=== PATIENT | female | born 1935 | race Caucasian/White ===

== ENCOUNTER 2024-11-13 09:41 | Inpatient (IN) | payer MEDICARE, OTHER, SELFPAY ==
--- NOTE | ~2024-11-13 | XR_ITS ---
CLINICAL HISTORY: weakness 1 view chest Comparison: None Findings: Cardiac and mediastinal contours are normal. Mild interstitial prominence with scattered peribronchial thickening. No focal consolidation. No effusion. No pneumothorax. No acute osseous finding. Hiatal hernia suggested. Impression: Mild interstitial prominence with scattered peribronchial thickening. No focal consolidation. This document has been electronically signed by: Jose Rivera MD on 11/13/2024 12:36:19
[2024-11-13 09:47] VITALS: BP 124/78; PULSE 84; O2SAT 95
[2024-11-13 09:51] VITALS: BMI 31.7
[2024-11-13 10:10] VITALS: BP 146/65; PULSE 76; RESP 26; TEMP 36.5; O2SAT 99
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
--- NOTE | 2024-11-13 11:03 | ECG_ITS ---
Test Reason : WEAKNESS Blood Pressure : */* mmHG Vent. Rate : 72 BPM Atrial Rate : 72 BPM P-R Int : 166 ms QRS Dur : 76 ms QT Int : 372 ms P-R-T Axes : 30 3 10 degrees QTcB Int : 407 ms Normal sinus rhythm Normal ECG No previous ECGs available Referred By: Farhan Raza Electronically Signed By: KATI BEDOYA
--- OUTSIDE RECORDS SUMMARY | 2024-11-13 11:19 | XMS_ITS | Data Portability ---
Author Organization [place] - [facility], [facility] Address [address] [place] [address] Assessment Encounter Date Assessment Date Assessment LastModified by Organization Details LastModified Time 04/26/2024 04/26/2024 CC FU R ankle fx ORIF 04/10/[address] Jalloh HPI Accomp by her son, from facility, transported in wheel chair for routine post op follow up No complaints or concerns Confirmed, NWB status, post op splint, minimal pain EXAM R LE medial and lateral incisions well healed, running skin suture in place, soft tissue swelling mild, calf soft/nontender XRAYS ordered obtained reviewed by me R ankle three views show joint space ankle concentric, plate screw fixation intact A/P Right ankle triamaleolar fracture, healing - NWB 3-4 more wk until next visit - suture removla next visit - cast SL NWB - FU 4 wk with xrays right ankle 3 v out of cast [email or web address] Not available 04/26/2024 12:49:17 05/17/2024 05/17/2024 SUBJECTIVE Chief Complaint Follow-up for right ankle fracture, status post-ORIF performed on April 10, 2024. History of Present Illness The patient, YESSENIA, is accompanied by a family member from her rehab facility. She reports minimal pain and is doing well. TM remains agl-pkbfwy-cjyvatu on the affected extremity. OBJECTIVE Examination The patient's right ankle shows foot swelling. The calf is soft and non-tender. Medial and lateral incisions are well-healed with monofilament suture in place. Imaging X-rays ordered, obtained, and reviewed by me today at [facility] of the right ankle, three views, show the following: fracture reduction maintained, early healing observed, implants in position, and joint space maintained. ASSESSMENT Right ankle trimalleolar fracture with routine healing. PLAN - Sutures removed. - Short-leg cast weight-bearing applied. - Prescription for cast shoe given. - Weight-bearing as tolerated is permitted. - Physical therapy and occupational therapy advised to assist with mobilization. - Follow-up in four weeks for cast removal and right ankle X-ray. Date: 05/17/2024 Patient Name: YESSENIA [email or web address] Not available 05/17/2024 11:39:26 06/15/2024 06/15/2024 SUBJECTIVE Chief Complaint Follow-up of right ankle fracture, status post open reduction, internal fixation on April 10, 2024. History of Present Illness Lashaun Turpin, an 88-year-old female, accompanied by her son from her rehab nursing facility and transported by wheelchair. Her cast was removed earlier today. Lashaun reports that she is walking with assistance, while her son notes that she is walking very minimally. She denies any right ankle complaints. OBJECTIVE Examination Right lower extremity: Calf soft, ankle incisions healed, foot plantar grade with limited ankle motion. Imaging X-rays ordered, obtained, and reviewed by me today at [facility]: Right ankle, three views, show malleolar fixation intact, fracture lines through the medial and lateral malleolus resolving, ankle joint spaces maintained. ASSESSMENT Right ankle fracture healing. PLAN Discontinue cast. Allow weight-bearing as tolerated with the goal of resuming ambulation. Recheck in three months. [email or web address] Not available 06/15/2024 12:09:52 09/13/2024 09/13/2024 SUBJECTIVE: CHIEF COMPLAINT: Follow up Right ankle fracture HISTORY OF PRESENT ILLNESS: DOS 05/31/2023. She's walking without assistive device and wearing street shoes. She has no bother. More pain from her right ankle. She's satisfied with her progress to date. Today she's accompanied by her son. 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 OBJECTIVE: EXAMINATION: Right lower extremity hindfoot neutral alignment Active ankle motion Foot flat position Calf non tender IMAGING: X-rays ordered obtained and reviewed by me today at [facility] Right ankle three views show the ankle joints appropriately positioned. The lateral, medial and posterior malleoli fracture alignment maintained with signs of healing. Fracture lines blurred fibular and medial malleolar implants in place. ASSESSMENT: Right ankle fracture trimaleolar status post ORIF with routine healing and good recovery to date. PLAN: Further follow up on an as needed basis. No restrictions outlined. [email or web address] Not available 09/13/2024 12:11:09 Plan of Treatment Reminders Order Date Submit Date Provider Last Modified By Organization Details Last Modified Time Details Appointments None recorded. Lab None recorded. Referral None recorded. Procedures None recorded. Surgeries None recorded. Imaging XR, ankle, 3 or more view - 315 rt ankle 3v recheck 025 025 [facility], [address], [place], [address], 5 12:58:04 XR, ankle, 3 or more view - 314 3v rt ankle global cast off first 025 025 cstam[facility], [address], [address], [place], [address], 5 06:52:27 XR, ankle, 3 or more view - 314- right ankle 3v global cast off first 025 025 [email or web address] 4 [facility], [address], [address], [place], [address], 5 12:03:07 XR, ankle, 3 or more view - 314 rt ankle 3v global 024 024 [email or web address] 0 [facility], [address], [address], [place], [address], 4 16:14:13 Medication Orders None recorded. Patient TargetsNo targets recorded. Patient Instructions Encounter Date Encounter Id Patient Instructions Last Modified By Organization Details Last Modified Time 04/26/[id number] application of cast, short leg cast* - 314 SLC NWB NEUTRAL, pt very stiff unable to get to neutral [email or web address] Not available 05/03/2024 16:14:13 05/17/[id number] cast removal* - 314 cast off and xr Not available 05/17/2024 12:03:07 application of cast, short leg cast* - 314 SLC neutral WB [email or web address] Not available 05/17/2024 12:14:11 06/15/[id number] cast removal* - 314 rt ankle cast off and xr, global [email or web address] Not available 06/15/2024 13:05:35 Reason for Referral None Reported. Results Created Date Observation Date Name Description Value Unit Range Abnormal Flag Note LastModifiedBy Organization Detail LastModifiedTime 04/26/20 24 04/26/2024 XR, ankle , 3 or more view [email or web address]:/ [email or web address] ?Encry pted=s hAaTro YD8dLq bEUv6g %2BXZw aYqtaq 0bqfl% 2Fg9IQ a4ajBk vP9nXo QUaueC m3YtLR Fv[place]l [place] [address] 8u1643 AC0Kqb nuBUqW kKiQtr MwF INTERFACE [facility] [address], [place], [address], 04/26/2024 10:34:44 04/26/20 24 04/26/2024 XR, ankle , 3 or more view [email or web address]:/ [email or web address] ?Encry pted=s hAaTro YD8dLq bEUv6g %2BXZw aYqtaq 0bqfl% 2Fg9IQ a4ajBk vP9nXo QUaueC m3YtLR [facility] [place] [address] 5v6838 AC0Kqb nuBUqW kKiQtr MwF INTERFACE [facility] [address], [place], [address], 04/26/2024 10:34:46 05/17/19 25 05/17/2024 XR, ankle , 3 or more view [email or web address]:/ [email or web address] ?Encry pted=s hAaTro YD8dLq bEUv6g %2BXZw aYqtaq 0bqfl% 2Fg9IQ a4ajBk vP9nXo QUaueC m3YtLR Zl JJ8mAn HZtai3 2m2107 AC0Kqb 3mFUaW vKiQtr MwF INTERFACE [facility] [address] [facility] [address], [place], [address], 05/17/2024 10:58:19 05/17/19 25 05/17/2024 XR, ankle , 3 or more view [email or web address] ?Encry pted=s hAaTro YD8dLq bEUv6g %2BXZw aYqtaq 0bqfl% 2Fg9IQ a4ajBk vP9nXo QUaueC m3YtLR FvZlgJ JJ8mAn HZtai3 6a3053 AC0Kqb 3mFUaW vKiQtr MwF INTERFACE [facility] [address] [facility] [address], [place], [address], 05/17/2024 10:58:21 06/15/19 25 06/15/2024 XR, ankle , 3 or more view [email or web address] ?Encry pted=s hAaTro YD8dLq bEUv6g %2BXZw aYqtaq 0bqfl% 2Fg9IQ a4ajBk vP9nXo QUaueC m3YtLR FvZlgJ JJ8mAn HZtai3 5r7052 AC0Kqb HqNWaO kKiQtr MwF INTERFACE [facility] [address] [facility] [address], [place], [address], 06/15/2024 10:36:12 06/15/19 25 06/15/2024 XR, ankle , 3 or more view [email or web address] ?Encry pted=s hAaTro YD8dLq bEUv6g %2BXZw aYqtaq 0bqfl% 2Fg9IQ a4ajBk vP9nXo QUaueC m3YtLR FvZlgJ JJ8mAn HZtai3 9p6847 AC0Kqb HqNWaO kKiQtr MwF INTERFACE [facility] [address], [place], [address], 06/15/2024 10:36:15 09/14/19 25 09/13/2024 XR, ankle , 3 or more view [email or web address] ?Encry pted=s hAaTro YD8dLq bEUv6g %2BXZw aYqtaq 0bqfl% 2Fg9IQ a4ajBk vP9nXo QUaueC m3YtLR FvZlgJ [facility] HZtai3 7r4516 AC0Kla nSDVqK kKiQtr MwF INTERFACE [facility] [address], [place], [address], 09/13/2024 11:54:15 09/14/19 25 09/13/2024 XR, ankle , 3 or more view [email or web address]:/ [email or web address] ?Encry pted=s hAaTro YD8dLq bEUv6g %2BXZw aYqtaq 0bqfl% 2Fg9IQ a4ajBk vP9nXo QUaueC m3YtLR FvZlJ [address]ta[address] 4f1971 AC0Kla nSDVqK kKiQtr MwF INTERFACE [facility] [address] [place] [address], [place], [address], 09/13/2024 11:54:16 09/14/19 25 09/13/2024 XR, ankle , 3 or more view [email or web address] ?Encry pted=s hAaTro YD8dLq bEUv6g %2BXZw aYqtaq 0bqfl% 2Fg9IQ a4ajBk vP9nXo QUaueC m3YtLR FvZlgJ JJ8mAn HZtai3 8j9888 AC0Kla nSDVqK kKiQtr MwF INTERFACE [facility] [address], [place], [address], 09/13/2024 12:02:41 09/14/19 25 09/13/2024 XR, ankle , 3 or more view [email or web address]:/ [email or web address] ?Encry pted=s hALianeto YD8dLq bEUv6g %2BXZw aYqtaq 0bqfl% 2Fg9IQ a4ajBk vP9nXo QUaueC m3YtLR FvZlgJ JJ8mAn HZtai3 2y3603 AC0Kla nSDVqK kKiQtr MwF INTERFACE [facility] [address] [facility] [address], [place], [address], 09/13/2024 12:02:43 Result Notes Documentation Provider Name and Address Organization Details Recorded Time Xr, Ankle, 3 Or More View : [email or web address] Encrypted=zgKuVqaJS5pTviA Uv6g%8QETroBqkui4qysd%2Fg 1ZFk0gvZxcN3bZeQGmidDm4Af HWGiTrhEDE4hJaXFqaw90q213 4OQ7XrjotYPbJtMxPnyTbV Not Available [facility] 04/26/2024 10:34: 44 Xr, Ankle, 3 Or More View : [email or web address] Encrypted=ouRdZhkEI6pTguH Uv6g%7RSZhbWosfj9nupy%2Fg 7MDl1cbNnrA9fSwTPsatTg4Ux JHYjWhvZVI4zFrGVlqq74v233 0IV4WmxodVDmTjAwZtjVsB Not Available [facility] 04/26/2024 10:34: 47 Xr, Ankle, 3 Or More View : [email or web address] Encrypted=uiEcHjkAS7bNprY Uv6g%8YQJrxKpqno5rubz%2Fg 4UBl0niVlvE6aUwZWwsfPa4Ey VNScGjrITB0fTrFOspo53n232 3UY8Qvx1iDOuJnJuAamCdI Not Available [facility] 05/17/2024 10:58: 19 Xr, Ankle, 3 Or More View : [email or web address] Encrypted=kaSvHywTR4cOqpD Uv6g%2TCXksJvmij1emgy%2Fg 9VSl3gpQnxZ0oHmJBogzHl0Xh ICRuLhxWRC7yTeWVxnl74d670 0JK9Dwy6mYYtWpZcQgnMzJ Not Available [facility] 05/17/2024 10:58: 22 Xr, Ankle, 3 Or More View : [email or web address] Encrypted=tcJaHqpPF9qIzeM Uv6g%8IYGyiTgish5lvws%2Fg 3QYz4djTziX7eYhPQvjcZs4Ub BNGwXneNUA6lMwXTnzs13q762 4CX6StsRrDTiTxFmGdkEqX Not Available [facility] 06/15/2024 10:36: 13 Xr, Ankle, 3 Or More View : [email or web address] Encrypted=hpTqKxqZH0vTiuV Uv6g%1HIAaeJrhgv1xkfn%2Fg 8NTr1dmDtkD2rJgIUipsUv3Re XHKfNvaUTW7nPrQYbbj98f303 2QN1DcrGuNXjGpBqDnbKgM Not Available [facility] 06/15/2024 10:36: 15 Xr, Ankle, 3 Or More View : [email or web address] Encrypted=fyBeKjiMP0sApqZ Uv6g%9KPIiyKaegi4nyie%2Fg 5PUt7pjQjxD4cHdCNfynTh7Cs PNFlQurALM6hVfIJimz20q542 4AN7RbsvDXGpTnCkEnrYxB Not Available [facility] 09/13/2024 11:54: 15 Xr, Ankle, 3 Or More View : [email or web address] Encrypted=akAoYzrLH9iIfbM Uv6g%6OKNtoXmyce0wich%2Fg 0ESl7lpFxzN5uXlABgmpNv1Qs XXOzZlzWEY5pWiSCynw52w306 9GN1QnquQOBrZrPnJqiQxN Not Available [facility] 09/13/2024 11:54: 17 Xr, Ankle, 3 Or More View : [email or web address] Encrypted=jrSrAglMK8wEecU Uv6g%6TZCjhQgltx4xhne%2Fg 2VMa3szDfdI1kAvJLzejEt2Uj XLYrBzcJPG1mEeXKcdz48c254 0AW0FfydBETyDmVyTowYsC Not Available [facility] 09/13/2024 12:02: 42 Xr, Ankle, 3 Or More View : [email or web address] Encrypted=uxWyXmdLK7xTeeT Uv6g%1ZBUncSurbi4okwp%2Fg 7DAw6acJviL7zHwSQvefRw2Hy WBXfBcwAMA7lMfQAmhx52j343 9ZD1JbayWMZmUgSgOalDfK Not Available [facility] 09/13/2024 12:02: 43 Medical Equipment None Reported. Allergies No known drug allergies Medications Name Sig Start Date Stop Date Status Note LastModified by Organization Details LastModified Time quetiapine 25 mg tablet TAKE 1 TABLET BY MOUTH THREE TIMES A DAY 09/13 completed Not Available Not Available Not Available atorvastatin 40 mg tablet TAKE 1 TABLET BY MOUTH EVERY DAY active Not Available Not Available No t Available lisinopril 20 mg tablet active Not Available Not Available Not Available aspirin 81 mg tablet,delay ed release active Not Available Not Available N ot Available levothyroxin e 50 mcg tablet TAKE 1 TABLET BY MOUTH DAILY,:N O FURTHER REFILLS. OVERDUE FOR LABS active Not Available Not Available No t Available cephalexin 500 mg capsule TAKE 1 CAPSULE BY MOUTH THREE TIMES A DAY FOR 7 DAYS 09/13 completed Not Available Not Available Not Available omeprazole 20 mg capsule,miguel angel yed release TAKE 1 CAPSULE BY MOUTH EVERY DAY active Not Available Not Available No t Available lisinopril 20 mg-hydrochlo rothiazide 25 mg tablet TAKE 1 TABLET BY MOUTH EVERY DAY 09/13 completed Not Available Not Available Not Available hydrochlorot hiazide 25 mg tablet 09/13 completed Not Available Not Available Not Available sertraline 50 mg tablet active Not Available Not Available Not Available Xarelto 20 mg tablet active Not Available Not Available No t Available Eliquis 5 mg tablet TAKE 1 TABLET BY MOUTH TWO TIMES A DAY 09/13 completed Not Available Not Available Not Available Vitals Date Recorded Body height Provider Name an d Address Organization Details Last Updated DateTime 05/17/2024 [facility] 05/17/2024 10:33:53 Date Recorded Body height Provider Name an d Address Organization Details Last Updated DateTime 06/15/2024 152.4 cm [facility] 06/15/2024 10:18:57 Date Recorded Body height Provider Name an d Address Organization Details Last Updated DateTime 09/13/2024 152.4 cm [facility] 09/13/2024 11:47:37 Date Recorded Body height Provider Name an d Address Organization Details Last Updated DateTime 04/26/2024 152.4 cm [facility] 04/26/2024 10:22:14 Social History None recorded. Functional Status None recorded. Mental Status None recorded. Family History Nothing Reported. Medical History Condition Response Allergies/Hayfever N Coronary Artery Disease N Anxiety/Depression N Breathing or lung disorders N Emphysema N Nerve Disorders N Thyroid Problems Y COPD N Pacemaker N Anemia N Kidney/Bladder Problems N Vascular Disease N Heart Trouble N Heart Attack (CO) N Gastrointestinal Disease N Cholesterol Y Diabetes N Autoimmune disease N Inflammatory Joint disease N Bleeding Disorder N Orthotics N Arthritis N Seizures/Epilepsy N Blood Clot N AIDS/HIV N Congestive Heart Failure (CHF) N Acid Reflux (GERD) N Cancer N Stroke N Asthma N Circulation Problems N Peripheral Vascular Disease N Sleep Apnea N Hepatitis N Heart Disease N Rheumatoid Arthritis N Arrhythmia N Pulmonary Embolism N Headaches N Fibromyalgia N Hypertension Y Osteoporosis N Gynecological HistoryNo gynecological history recorded. Obstetrics History GPAL:G 0 P 0 0 0 0 Past Encounters Encounter ID Performer Location Encounter Start Date Encounter Closed Date Diagnosis/Indication Diagnosis SNOMED-CT Code Diagnosis ICD10 Code Diagnosis Note [id number] Cate Chen MD [facility] [address]rd floor [address] [place] [address] 04/26/2024 10:10:07 05/18/2024 16:28:27 Closed fracture of right ankle [id number] S82.891A [id number] [facility] [address] [place] [address] 05/17/2024 10:20:39 05/17/2024 11:41:43 Closed fracture of right ankle [id number] S82.891A [id number] [facility] [address] [address] [place] [address] 06/15/2024 10:09:23 07/05/2024 06:52:27 Closed fracture of right ankle [id number] S82.891A [id number] [facility] [address] [place] [address] 09/13/2024 11:43:31 09/20/2024 12:58:04 Closed fracture of right ankle [id number] S82.891A Health Concerns Section Related Observation LastModified by Organization Detai ls LastModified Time None Recorded Concern Status LastModified by Organization Details LastModified Time None Recorded Advance Directives Directive None Recorded Payers Insurance Date Sequence Insurance Name Policy Number Policy Thomas Covered Member ID Thomas Member ID Guarantor Name 09/11/2024 1 [place]ICARE B-[place]: [facility] [employer] Lashaun Turpin [id number] Lashaun Turpin 09/20/2024 2 [facility] [id number] Lashaun Turpin [id number] Lashaun Turpin 06/06/2024 [facility] Lashaun Papi [id number] Lashaun Papi 09/11/2024 [facility]IC[facility]ME [facility] A[facility] Lashaun Turpin [id number] Lashaun Papi OBGyn Episode No OBEpisode recorded.
--- OUTSIDE RECORDS SUMMARY | 2024-11-13 11:19 | XMS_ITS | Encounter Summary ---
Author Organization [facility] Address [address] [place] [address] Care Team Providers Care Automobile Detailer Name Role Phone Lauren Garcia MD Primary Care Provider + Encounter Details Date Type Department Care Team (Late st Contact Info) Description 05/13/2024 Lab Requisition [facility] - Main Lab [address] [facility] [place] [address] Lauren Garcia MD [address] [phone] Chronic kidney disease, unspecified; Essential (primary) hypertension Social History Tobacco Use Types Packs/Day Years Used Date Smoking Tobacco: Never Assessed Comments Unknown Sex and Gender Information Value Date Recorded Sex Assigned at Not on file Legal Sex Female 11:30 PM EST Gender Identity Not on file Sexual Orientation Not on file documented as of this encounter Plan of Treatment Not on file documented as of this encounter Procedures Procedure Name Priority Date/Time Associated Diagnosis Comments COMPLETE BLOOD COUNT Routine 05/16/2024 6:18 AM EST Chronic kidney disease, unspecified Essential (primary) hypertension BASIC METABOLIC PANEL Routine 05/16/2024 6:18 AM EST Chronic kidney disease, unspecified Essential (primary) hypertension documented in this encounter Results * (ABNORMAL) Basic metabolic panel (05/16/2024 6:18 AM EST) Sodium 142 133 - 145 mmol/L LAB CHEMISTRY METHOD 05/16/2024 1:28 PM EST [facility] Potassium 4.1 3.5 - 5.5 mmol/L LAB CHEMISTRY METHOD 05/16/2024 1:28 PM EST [facility] Chloride 109 96 - 110 mmol/L LAB CHEMISTRY METHOD 05/16/2024 1:28 PM EST [facility] CO2 25 21 - 32 mmol/L LAB CHEMISTRY METHOD 05/16/2024 1:28 PM [facility] Anion Gap 8 3 - 11 LAB CHEMISTRY METHOD 05/16/2024 1:28 PM [facility] Glucose 83 70 - 100 mg/dL LAB CHEMISTRY METHOD 05/16/2024 1:28 PM [facility] BUN 24 5 - 25 mg/dL LAB CHEMISTRY METHOD 05/16/2024 1:28 PM [facility] Creatinine 1.17(H) 0.50 - 1.10 mg/dL LAB CHEMISTRY METHOD 05/16/2024 1:28 PM [facility] eGFR 45(L) >=60 mL/min/1. 73m2 LAB CHEMISTRY METHOD 05/16/2024 1:28 PM [facility] Comment:Calculation based on the Chronic Kidney Disease Epidemiology Collaboration (CKD-EPI) equation refit without adjustment for race. BUN/Creatinine Ratio 20.5 LAB CHEMISTRY METHOD 05/16/2024 1:28 PM [facility] Calcium 9.8 8.5 - 10.5 mg/dL LAB CHEMISTRY METHOD 05/16/2024 1:28 PM [facility] Blood Venous blood specimen / Unknown Venipuncture / Unknown 05/16/2024 6:18 AM EST 05/16/2024 10:47 AM EST us Lauren Garcia MD LAB BLOOD ORDERABLES Fin al Result [facility] [address] [place] [address], * (ABNORMAL) Complete blood count (05/16/2024 6:18 AM EST) WBC 6.2 4.8 - 10.8 [facility] 05/16/2024 1:43 PM [facility] RBC 4.00 3.80 - 4.80 M/mcL LAB HEMETOLOGY METHOD 05/16/2024 1:43 PM [facility] Hemoglobin 10.0(L) 11.5 - 16.0 g/dL LAB HEMETOLOGY METHOD 05/16/2024 1:43 PM [facility] Hematocrit 34.6(L) 35.0 - 47.0 % LAB HEMETOLOGY METHOD 05/16/2024 1:43 PM [facility] MCV 87.6 79.0 - 98.0 FL LAB HEMETOLOGY METHOD 05/16/2024 1:43 PM [facility] MCH 25.3(L) 27.0 - 32.0 pcg LAB HEMETOLOGY METHOD 05/16/2024 1:43 PM [facility] MCHC 28.9(L) 32.0 - 37.0 g/dL LAB HEMETOLOGY METHOD 05/16/2024 1:43 PM [facility] RDW 14.5 11.0 - 15.0 % LAB HEMETOLOGY METHOD 05/16/2024 1:43 PM [facility] Platelets 212 130 - 400 K/mcL LAB HEMETOLOGY METHOD 05/16/2024 1:43 PM [facility] MPV 12.0(H) 7.0 - 11.0 FL LAB HEMETOLOGY METHOD 05/16/2024 1:43 PM [facility] NRBC 0.0 <1.0 % LAB HEMETOLOGY METHOD 05/16/2024 1:43 PM [facility] NRBC Absolute 0.00 <0.10 K/mcL LAB HEMETOLOGY METHOD 05/16/2024 1:43 PM [facility] Blood Venous blood specimen / Unknown Venipuncture / Unknown 05/16/2024 6:18 AM EST 05/16/2024 10:47 AM EST us Lauren Garcia MD LAB BLOOD ORDERABLES Fin al Result [facility] [address] [place] [address], documented in this encounter Visit Diagnoses Diagnosis Chronic kidney disease, unspecified Essential (primary) hypertension Unspecified essential hypertension documented in this encounter Additional Health Concerns 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
[2024-11-13 11:38] VITALS: TEMP 36.3
[2024-11-13 11:41] LABS: MANUAL DIFF FLAG NO
[2024-11-13 11:44] LABS: Hematocrit 34.4 % (37.0-47.0); Hemoglobin 10.9 g/dl (12.0-16.0); Imm Gran Abs Auto 0.01 X10*3/uL (0.00-0.03); Imm Gran Pct Auto 0.2 % (0.0-0.4); Lymphocytes Absolute Auto 1.1 X10*3/uL (1.2-4.9); Mean Corpuscular HGB Conc 31.7 g/dl (31.0-35.0); Mean Corpuscular Hemoglobin 27.9 pg (27.0-33.0); Mean Corpuscular Volume 88.2 fL (80.0-98.0); NRBC Abs Auto 0.000 X10*3/uL (0.0-0.012); NRBC Pct Auto 0.0 /100WBC (0.0-0.2); Platelet Count 208 X10*3/uL (160-400); Red Blood Count 3.90 X10*6/uL (4.20-5.50); White Blood Count 5.2 X10*3/uL (4.8-10.8)
[2024-11-13 12:04] LABS: Alanine Aminotransferase 9 U/L (0-31); Albumin Level 3.6 g/dL (3.5-5.0); Alkaline Phosphatase 82 U/L (39-117); Anion Gap 15 (12-20); Aspartate Amino Transferase 17 U/L (5-31); Blood Urea Nitrogen 25 mg/dL (9-16); Calcium 10.1 mg/dL (8.4-10.2); Carbon Dioxide 20 mmol/L (22-29); Chloride 110 mmol/L (96-108); Creatinine Clr Calc Pharmacy 30.3; Estimated Glomerular Filt Rate 45; Magnesium 1.9 mg/dL (1.6-2.6); Potassium 4.7 mmol/L (3.3-5.1); Sodium 140 mmol/L (135-145); Total Protein 6.9 g/dL (6.5-8.0)
[2024-11-13 13:10] LABS: Appearance Urine Clear; Glucose Urine UA Negative (Negative); PH 6.0 (5.0-9.0); Specific Gravity - Urine 1.010 (1.005-1.025); UMIC TRIGGER UACC YES
[2024-11-13 13:26] LABS: UACC Culture Trigger YES
[2024-11-13 13:41] LABS: Resp Syncy Virus RNA Qual PCR NEGATIVE (Negative); SARS COV2 PCR INHOUSE NEGATIVE (Negative)
[2024-11-13 14:47] VITALS: BP 158/60; PULSE 76; RESP 21; TEMP 36.7; O2SAT 98
--- NOTE | 2024-11-13 18:53 | PC.NURSE ---
med rec completed using med list faxed by cam oakley
[2024-11-13 18:55] VITALS: BP 182/74; PULSE 78; RESP 19; TEMP 36.4; O2SAT 95
[2024-11-13 20:00] VITALS: BP 134/68; PULSE 79; RESP 17; TEMP 36.7; O2SAT 96
--- NOTE | 2024-11-13 21:21 | PC.NURSE ---
Patient is alert/pleasantly confused but can make needs known. Ambulates, continent, and no issues swallowing. She has +2 pitting LE edema, shiny skin and c/o feet feeling tight. She has very small amount of bleeding on toilet paper from rectum or vaginal area. No obvious external hemorrhoids noted. Small amount of grainy stool in toilet. Crisis here to evaluate. Bed in low position with bed alarm on, nurse call reddy in her hand, all safety needs addressed.
[2024-11-14] VITALS (8 sets, daily range): BP systolic 123–170; BP diastolic 57–76; PULSE 68–87; RESP 14–18; TEMP 36.2–36.8; O2SAT 93–98; BMI 30.6; BMI 30.1
[2024-11-14 01:18] LABS: OBS Int Ctl Valid YES
--- NOTE | 2024-11-14 01:19 | PC.NURSE ---
Patient had a large incontinent stool at 0100 that was very dark/charcoal colored and very odorous questioning blood. Covering physician ordered stat labs and RN sent stool for guiac. Patients Vitals are stable, 137/71, h.r 74. Denies abdominal pain, light headedness.
[2024-11-14 01:21] LABS: OBS1 POSITIVE (NEGATIVE)
[2024-11-14 03:00] LABS: Hematocrit 31.5 % (37.0-47.0); Hemoglobin 10.0 g/dl (12.0-16.0)
--- NOTE | 2024-11-14 05:52 | PM.IMHP ---
History of Present Illness Date of Service: 11/14/24 Attending physician on admission: Ramu Stacy Chief Complaint: melena Patient is an 89-year-old female with a past medical history significant for recurrent UTIs and dementia who resides at [facility], who presented to the ED yesterday due to aggressive behavior by scratching a nurse significantly on the arm, with requested for a psych eval. the pt was admitted for observation for psych eval and was noted to have a large BM, dark charcoal with liquid and some pink blood. stool guiac + and repeat H+H with subtle drop. the pt will now be admitted for acute GI bleed. the pt denies any chest pain, SOB, abd pain, nausea, vomiting, abd pain, or urinary sx. no history of melena or GI bleeds in the past. no etoh or heavy NSAID use. Review of Systems Constitutional: Constitutional: Denies body ache(s), Denies chills, Denies fatigue, Denies fever(s) and Denies headache(s) Eyes: Eyes: Denies change in vision ENT: Denies headache(s) and Denies nasal congestion Cardiovascular: Cardiovascular: Denies chest pain, Denies rapid heart rate, Denies leg edema and Denies dyspnea Respiratory: Respiratory: Denies chest congestion, Denies cough, Denies dyspnea and Denies wheezing Gastrointestinal: Gastrointestinal: Denies abdominal pain, Denies nausea and Denies vomiting Genitourinary: Genitourinary: Denies dysuria and Denies urinary urgency Musculoskeletal: Musculoskeletal: Denies myalgias Integumentary/Breasts: Skin/Breast: Denies rash Neurologic: Denies confusion and Denies headache(s) Psychiatric: Psychiatric: Denies confusion Endocrine: Endocrine: Denies fatigue Hematologic/Lymphatic: Hematologic/Lymphatic: Denies easy bleeding and Denies easy bruising Allergic/Immunologic: Allergic/Immunologic: Denies wheezing [facility] Medical History HTN (hypertension) Hypothyroid Recurrent UTI HLD (hyperlipidemia) Aggressive behavior Dementia Social History Alcohol intake: former Smoked in Last 30 Days: No Use of substances other than those prescribed or required for medical reasons: No Advance Directives: No Advance Directives Information Provided: Yes Narrative: no smoking or etoh Meds Allergies Allergy/AdvReac Type Severity Reaction Status Date / Time No Known Allergies Allergy Verified 11/13/24 09:52 Active Medications: Current Medications Atorvastatin Calcium (Atorvastatin Calcium 40 Mg Tablet) 40 mg PO DAILY [facility] Levothyroxine Sodium (Levothyroxine Sodium 50 Mcg Tablet) 50 mcg PO DAILY@0600 [facility] Melatonin (Melatonin 3 Mg Tablet) 6 mg PO BEDTIME [facility] Last Admin: 11/13/24 20:58 Dose: 6 mg Quetiapine Fumarate (Quetiapine Fumarate 50 Mg Tablet) 50 mg PO BID [facility] Last Admin: 11/13/24 20:58 Dose: 50 mg Sertraline HCl (Sertraline Hcl 50 Mg Tablet) 50 mg PO DAILY [facility] Home Medications ?Medication ?Instructions ?Recorded ?Confirmed ?Last Taken ?Type Lactobacillus acidophilus 500 500 cell PO DAILY 11/13/24 11/13/24 Unknown History million cell tablet ascorbic acid (vitamin C) 250 mg 250 mg PO DAILY 11/13/24 11/13/24 Unknown History tablet (Vitamin C) aspirin 81 mg tablet,delayed 81 mg PO DAILY 11/13/24 11/13/24 Unknown History release atorvastatin 40 mg tablet 40 mg PO DAILY 11/13/24 11/13/24 Unknown History cephalexin 250 mg tablet 250 mg PO DAILY 11/13/24 11/13/24 Unknown History cholecalciferol (vitamin D3) 50 50 mcg PO DAILY 11/13/24 11/13/24 Unknown History mcg (2,000 unit) capsule (Vitamin D3) ferrous gluconate 324 mg (36 mg 324 mg PO DAILY 11/13/24 11/13/24 Unknown History iron) tablet hydrochlorothiazide 12.5 mg tablet 12.5 mg PO DAILY 11/13/24 11/13/24 Unknown History levothyroxine 50 mcg tablet 50 mcg PO DAILY 11/13/24 11/13/24 Unknown History lisinopril 10 mg tablet 10 mg PO DAILY 11/13/24 11/13/24 Unknown History omeprazole 20 mg capsule,delayed 20 mg PO DAILY 11/13/24 11/13/24 Unknown History release quetiapine 50 mg tablet 50 mg PO BID 11/13/24 11/13/24 Unknown History sertraline 50 mg tablet 50 mg PO DAILY 11/13/24 11/13/24 Unknown History sulfamethoxazole 800 1 tab PO BID 11/13/24 11/13/24 Unknown History mg-trimethoprim 160 mg tablet Physical Exam Vital Signs and Narrative: Vital Signs: Last Vital Signs Temp 98.1 F 11/13/24 20:00 Pulse 74 11/14/24 01:42 Resp 17 11/13/24 20:00 BP 137/61 11/14/24 01:42 Pulse Ox 96 11/13/24 20:00 O2 Del Method Room Air 11/13/24 20:00 BMI result Body Mass Index 31.7 General: AOx3, no acute distress Resp: CTA bilaterally CVS: S1, S2, RRR GI: +BS, NT, no distention Skin: Warm, dry Neuro: Cranial nerves II-XII grossly intact bilaterally. Motor grossly intact bilaterally Extremities: No LE edema Psych: Appropriate affect Const: General: No confusion Orientation/consciousness: No confusion Neuro: General: No confusion Results Labs 11/14/24 02:54 11/13/24 11:38 Labs: Laboratory Results - last 24 hr 11/13/24 11/13/24 11/13/24 11:23 11:38 12:59 MCV 88.2 MCH 27.9 MCHC 31.7 RDW 13.8 Plt Count 208 MPV 11.0 Immature Gran % (Auto) 0.2 Neut % (Auto) 70.9 Lymph % (Auto) 20.8 [place] % (Auto) 5.2 Eos % (Auto) 1.9 Baso % (Auto) 1.0 Lymph # (Auto) 1.1 L [place] # (Auto) 0.3 Eos # (Auto) 0.1 Baso # (Auto) 0.1 Abs Immat Gran (auto) 0.01 Absolute Neuts (auto) 3.7 Absolute Nucleated RBC 0.000 Nucleated RBC % (auto) 0.0 Anion Gap 15 Estim Creat Clear Calc 30.3 Estimated GFR 45 Random Glucose 92 Calcium 10.1 Magnesium 1.9 Total Bilirubin 0.5 Direct Bilirubin 0.2 AST 17 ALT 9 Alkaline Phosphatase 82 C-Reactive Protein 0.27 Total Protein 6.9 Albumin 3.6 Urine Color Yellow Urine Appearance Clear Urine pH 6.0 Ur Specific Sebastian 1.010 Urine Protein Negative Urine Glucose (UA) Negative Urine Ketones Negative Urine Blood Small (1+) H Urine Nitrite Negative Ur Leukocyte Esterase Small (1+) H Urine RBC 6-10 H Urine WBC 0-5 Ur Squamous Epith Cells 11-20 Urine Bacteria 4+ Hyaline Casts 0-2 Stool Occult Blood Ethyl Alcohol 10 Influenza Type A (PCR) NEGATIVE Influenza Type B (PCR) NEGATIVE RSV RNA Qual (PCR) NEGATIVE SARS-CoV-2 RNA (RT-PCR) NEGATIVE 11/14/24 01:00 MCV MCH MCHC RDW Plt Count MPV Immature Gran % (Auto) Neut % (Auto) Lymph % (Auto) [place] % (Auto) Eos % (Auto) Baso % (Auto) Lymph # (Auto) [place] # (Auto) Eos # (Auto) Baso # (Auto) Abs Immat Gran (auto) Absolute Neuts (auto) Absolute Nucleated RBC Nucleated RBC % (auto) Anion Gap Estim Creat Clear Calc Estimated GFR Random Glucose Calcium Magnesium Total Bilirubin Direct Bilirubin AST ALT Alkaline Phosphatase C-Reactive Protein Total Protein Albumin Urine Color Urine Appearance Urine pH Ur Specific Sebastian Urine Protein Urine Glucose (UA) Urine Ketones Urine Blood Urine Nitrite Ur Leukocyte Esterase Urine RBC Urine WBC Ur Squamous Epith Cells Urine Bacteria Hyaline Casts Stool Occult Blood POSITIVE Ethyl Alcohol Influenza Type A (PCR) Influenza Type B (PCR) RSV RNA Qual (PCR) SARS-CoV-2 RNA (RT-PCR) Assessment and Plan (1) Acute upper GI bleed: Status: Acute (2) Dementia: Status: Acute (3) Aggressive behavior: Status: Acute Plan Patient is an 89-year-old female with a past medical history significant for recurrent UTIs, hypothyroid, hypertension, GERD, CAD and dementia who resides at [facility], who presented to the ED yesterday due to aggressive behavior by scratching a nurse significantly on the arm, with requested for a psych eval. the pt was admitted for observation for psych eval and was noted to have a large BM, dark charcoal with liquid and some pink blood. stool guiac + and repeat H+H with subtle drop. Acute upper GI bleed - hemoglobin 10.9, 10.0 on repeat, hematocrit 34.4, 31.5 on repeat - fecal occult blood test positive - GI consult - NPO - Protonix 80 mg IV x1 - hold aspirin and omeprazole - monitor CBC dementia/aggressive behavior - care team consult - continue sertraline, quetiapine Recurrent UTIs - continue prophylactic Keflex Hypothyroid - continue levothyroxine GERD - IV Protonix as above, hold p.o. omeprazole Hypertension - lisinopril and hydrochlorothiazide CAD - continue statin, hold aspirin Full code VTE prophylaxis: Pneumoboots due to GI bleed Patient with acute upper GI bleed, requiring admission for at least 2 midnights stay for monitoring and gastroenterology evaluation. Quality Stroke Does the patient have a stroke diagnosis?: No VTE Prior VTE?: No VTE Risk Level:: Medical - moderate - high VTE Device Contraindication: N/A - Device Ordered VTE Drug Contraindication: Treatment Not Indicated
[2024-11-14] MEDS: Lactated Ringers 1,000 ML 999 ML IV (06:17)
--- NOTE | 2024-11-14 08:14 | PHA.MEDREC ---
Pharmacy Consult ? Medication Reconciliation Pharmacy has reviewed the medication reconciliation done by nursing, also had to make some corrections to med list after talking to Cat at [facility]. Patient takes cephalexin 250 mg thursday, thursday, thursday (not every day) and she is not taking bactrim DS (done with course back in september). She takes quetiapine 50 mg bid @0900 and 1600. Xarelto 20 mg, melatonin 6 mg, milk of mag and senna were added to list.
--- NOTE | 2024-11-14 09:26 | PM.EVENT ---
Event Note Date of Service: 11/14/24 Event Note: 89-year-old female with a past medical history significant for recurrent UTIs, hypothyroid, hypertension, GERD, CAD and dementia who resides at [facility], who presented to the ED yesterday due to aggressive behavior by scratching a nurse significantly on the arm, with requested for a psych eval. the pt was admitted for observation for psych eval and was noted to have a large BM, dark charcoal with liquid and some pink blood. stool guiac + and repeat H+H with subtle drop. Acute upper GI bleed hemoglobin 10.9, 10.0 on repeat, hematocrit 34.4, 31.5 on repeat fecal occult blood test positive GI consult NPO Protonix 80 mg IV x1 hold aspirin and omeprazole monitor CBC dementia/aggressive behavior care team consult continue sertraline, quetiapine Recurrent UTIs continue prophylactic Keflex Hypothyroid continue levothyroxine GERD IV Protonix as above, hold p.o. omeprazole Hypertension lisinopril and hydrochlorothiazide CAD continue statin, hold aspirin Full code VTE prophylaxis: Pneumoboots due to GI bleed Patient with acute upper GI bleed, requiring admission for at least 2 midnights stay for monitoring and gastroenterology evaluation. Time Spent With Patient Time: Total time managing care of this patient today ____ minutes.
--- NOTE | 2024-11-14 09:45 | PC.NURSE ---
1:1 assist OOB to the commode. pt denies any dizziness/lightheadedness w/ ambulation. patient noted to have a large, non-bloody, loose BM. pericare performed. pt assisted back into bed/adjusted to comfort. pt otherwise has no complaints. denies pain. on RA w/o difficulty. no sob/wob noted. respirations remain even/unlabored. plan of care ongoing. call reddy placed within reach.
[2024-11-14] MEDS: Ferrous Sulfate 324 MG TABLET.DR PO (10:50)
--- NOTE | 2024-11-14 10:50 | PC.NURSE ---
delay in medication administration d/t patient remaining NPO w/o special indications. hospitalist verbalizing patient is to remain NPO at this time but able to take PO medication w/ sips of water. medication now administered per provider order.
[2024-11-14] MEDS: 0.9 % Sodium Chloride Flush 3 ML SYRINGE IVFLUSH ×2 (15:44→21:25)
[2024-11-14 16:48] LABS: MANUAL DIFF FLAG NO
[2024-11-14 16:52] LABS: Hematocrit 33.6 % (37.0-47.0); Hemoglobin 10.5 g/dl (12.0-16.0); Imm Gran Abs Auto 0.02 X10*3/uL (0.00-0.03); Imm Gran Pct Auto 0.4 % (0.0-0.4); Lymphocytes Absolute Auto 1.4 X10*3/uL (1.2-4.9); Mean Corpuscular HGB Conc 31.3 g/dl (31.0-35.0); Mean Corpuscular Hemoglobin 27.7 pg (27.0-33.0); Mean Corpuscular Volume 88.7 fL (80.0-98.0); NRBC Abs Auto 0.000 X10*3/uL (0.0-0.012); NRBC Pct Auto 0.0 /100WBC (0.0-0.2); Platelet Count 200 X10*3/uL (160-400); Red Blood Count 3.79 X10*6/uL (4.20-5.50); White Blood Count 5.3 X10*3/uL (4.8-10.8)
[2024-11-14 17:00] LABS: INTERNATIONAL NORM RATIO 1.2 (0.9-1.1); Prothrombin Time 13.4 SEC (10.9-12.4)
--- NOTE | 2024-11-14 18:27 | MHC.SHP ---
Pre-Procedural Eval Section A - 24 Hr Update-Section A only Date of Service: 11/15/24 The patient is an INPATIENT: Yes The patient has been examined within 24 hours of the surgical procedure. The History & Physical has been completed within 30 days and I have reviewed it.: Yes Section B - Complete if H&P > 30 days Chief Complaint: GI Bleed Allergies: Allergies Allergy/AdvReac Type Severity Reaction Status Date / Time No Known Allergies Allergy Verified 11/13/24 09:52 Plan I have reviewed the history and physical and performed a pertinent physical examination on my patient. No changes have occurred unless specified. Time Spent With Patient Time: Total time managing care of this patient today ____ minutes.
--- NOTE | 2024-11-14 18:48 | PM.EVENT ---
Event Note Date of Service: 11/14/24 Event Note: GI Consult-Full note dictated-History from patient(limited due to dementia), from RN, and the EMR. Imp: Apparent UGI bleed with dark, tarry, and Heme + stool with an associated anemia in an 89 yo female on chronic 81 mg aspirin. There was no reported vomiting or abdominal pain. Her med list includes aspirin, Iron and a PPI. She presently appears stable based on her exam, the history, and F/U labs. Diff dx: PUD, gastritis, esophagitis, neoplasm. Rec: IV PPI, F/U labs, and EGD with MAC for tomorrow. I left a detailed message on her son's, Jaime's, voicemail in this regard and told him we would need consent. I did review it with the patient but I am not sure how much she understood. Thanks Time Spent With Patient Time: Total time managing care of this patient today ____ minutes.
[2024-11-15] VITALS (9 sets, daily range): BP systolic 97–154; BP diastolic 44–68; PULSE 65–80; RESP 12–18; TEMP 36.3–37.2; O2SAT 93–100
--- NOTE | 2024-11-15 05:10 | CONS_ITS ---
DATE OF SERVICE: 11/14/2024 REASON FOR CONSULTATION: Reported melena, heme-positive stool, and anemia. HISTORY OF PRESENT ILLNESS: History has been obtained primarily from the nurse and the medical record as the patient does have some dementia and does not seem to give a reliable history for the most part. The patient is an 89-year-old female transferred from the residential due to some agitation and aggressive behavior. While in the ER, she had a reported large black tarry stool with some pink blood associated with it. This was heme-positive. Of note, she is on iron according to the medication record. She denies any abdominal pain. In the ER, she did not have any actual hematochezia, vomiting, nor change in vital signs. Her medication list does include aspirin 81 mg but no NSAIDs. There is no reported history of previous ulcer disease or GI bleeding. Since being transferred to the medical floor from the ER, she has had no further signs of bleeding. She presently denies any abdominal pain. PRESENT MEDICATIONS: Include vitamin C, Tums, Keflex, vitamin D, iron, levothyroxine, lisinopril, melatonin, Seroquel, and sertraline. PAST MEDICAL HISTORY: Recurrent UTIs, dementia, hypertension, hypothyroidism, hyperlipidemia, dementia. PAST SOCIAL HISTORY: She does not smoke or drink. FAMILY HISTORY: Noncontributory. REVIEW OF SYSTEMS: CONSTITUTIONAL: She reports that she is feeling well and she eats well. SKIN: She denies any rashes nor itching. CARDIAC: No chest pain. PULMONARY: No coughing or hemoptysis. GI: As above. URINARY: No reported dysuria, hematuria. PHYSICAL EXAMINATION: GENERAL: The patient is a pleasant, alert, comfortable-appearing female. SKIN: Warm and dry. HEENT: Anicteric sclerae. Moist mucous membranes. NECK: Supple. CARDIAC: Normal S1, S2. ABDOMEN: Soft, nondistended, nontender without organomegaly or mass. EXTREMITIES: Without edema. LABORATORY DATA: Initial white count on arrival in the ER was 5.2. Initial hemoglobin was 10.9, which dropped to 10.0 early this morning and repeated 10.5 this afternoon. MCV 88, platelet count at 200,000. PT 13.4 with INR 1.2. Normal electrolytes. BUN 25, creatinine 1.2. Normal LFTs. Chest x-ray on admission negative for any pneumonia or other significant findings. IMPRESSION: Given the patient's presentation, this seems consistent with possible upper GI bleeding, although she is on chronic iron, which could very well contribute to the dark stools. However, she is heme positive.. She does have a risk factor for GI bleeding in relation to daily aspirin use, although does take a daily omeprazole. At this point, she appears stable. There does not appear to be any ongoing active bleeding. However, I would recommend upper endoscopy prior to return to the residential, so as to allow possible treatment and to rule out anything else such as neoplasm, ulcer disease, and/or H pylori. For further evaluation, the patient will undergo an upper endoscopy tomorrow with Dr. Singer. Full consent has been obtained from her for this, including risks of bleeding and perforation. However, she does have reported dementia and even though she seems to understand to some degree, I have placed a call to her son, Jaime, and left a voicemail such that he can get back to us before the procedure tomorrow. In the meantime I would continue IV Protonix. She will have repeat laboratories in the morning. She will be kept on clear liquids tonight and then be n.p.o. after midnight. Thank you for the consultation. MD WARREN Rodriguez/KURT / [phone] MTDD
[2024-11-15 07:40] LABS: Hematocrit 32.9 % (37.0-47.0); Hemoglobin 10.5 g/dl (12.0-16.0); Mean Corpuscular HGB Conc 31.9 g/dl (31.0-35.0); Mean Corpuscular Hemoglobin 28.3 pg (27.0-33.0); Mean Corpuscular Volume 88.7 fL (80.0-98.0); NRBC Abs Auto 0.000 X10*3/uL (0.0-0.012); NRBC Pct Auto 0.0 /100WBC (0.0-0.2); Platelet Count 198 X10*3/uL (160-400); Red Blood Count 3.71 X10*6/uL (4.20-5.50); White Blood Count 5.9 X10*3/uL (4.8-10.8)
[2024-11-15 07:55] LABS: Anion Gap 10 (12-20); Blood Urea Nitrogen 17 mg/dL (9-16); Calcium 9.9 mg/dL (8.4-10.2); Carbon Dioxide 27 mmol/L (22-29); Chloride 110 mmol/L (96-108); Creatinine Clr Calc Pharmacy 28.2; Estimated Glomerular Filt Rate 42; Potassium 4.3 mmol/L (3.3-5.1); Sodium 143 mmol/L (135-145)
--- NOTE | 2024-11-15 08:08 | P.PNIM_ITS ---
Subjective Subjective Date of Service: 11/15/24 Review of Systems Follow up GI bleed No bleeding episodes no nausea, vomiting or diarhea Physical Exam 2 Vital Signs: Vital Signs: Last Vital Signs Temp 97.7 F 11/15/24 07:15 Pulse 68 11/15/24 07:15 Resp 18 11/15/24 07:15 BP 153/68 H 11/15/24 07:15 Pulse Ox 97 11/15/24 07:15 O2 Del Method Room Air 11/15/24 07:15 BMI result Body Mass Index 30.1 Appearing in no acute distress lung sounds are clear to auscultation heart regular rate rhythm, clear S1, S2 positive bowel sounds, abdomen is soft, nontender neuro patient is alert x3, no focal deficits Objective Data Active Medications Acetaminophen (Acetaminophen 325 Mg Tablet) 975 mg PO Q6H PRN PRN Reason: Pain, Mild 1-3,fever,headache Ascorbic Acid (Ascorbic Acid 250 Mg Tablet) 250 mg PO DAILY [facility] Last Admin: 11/14/24 10:50 Dose: 250 mg Documented By: GARY Atorvastatin Calcium (Atorvastatin Calcium 40 Mg Tablet) 40 mg PO DAILY [facility] Last Admin: 11/14/24 10:50 Dose: 40 mg Documented By: GARY Calcium Carbonate (Calcium Carbonate 750 Mg Tab.Chew) 750 mg PO Q4H PRN PRN Reason: Heartburn Cephalexin HCl (Cephalexin 250 Mg Capsule) 250 mg PO MoWeFr [facility] Last Admin: 11/14/24 10:55 Dose: 250 mg Documented By: GARY Ferrous Sulfate (Ferrous Sulfate 324 Mg Tablet.) 324 mg PO DAILY [facility] Last Admin: 11/14/24 10:50 Dose: 324 mg Documented By: GARY Levothyroxine Sodium (Levothyroxine Sodium 50 Mcg Tablet) 50 mcg PO DAILY@0600 [facility] Last Admin: 11/15/24 05:39 Dose: 50 mcg Documented By: BARBARA Lisinopril (Lisinopril 10 Mg Tablet) 10 mg PO DAILY [facility]; Protocol Last Admin: 11/14/24 10:50 Dose: 10 mg Documented By: GARY Magnesium Hydroxide (Milk Of Magnesia 30 Ml Oral.Susp) 30 ml PO DAILY PRN PRN Reason: Constipation Melatonin (Melatonin 3 Mg Tablet) 6 mg PO BEDTIME [facility] Last Admin: 11/14/24 21:25 Dose: 6 mg Documented By: BARBARA Pantoprazole Sodium (Pantoprazole Sodium 40 Mg/10 Ml Vial) 40 mg IVPUSH BID@0630,1630 [facility] Last Admin: 11/15/24 05:38 Dose: 40 mg Documented By: BARBARA Quetiapine Fumarate (Quetiapine Fumarate 50 Mg Tablet) 50 mg PO BID [facility] Last Admin: 11/14/24 21:25 Dose: 50 mg Documented By: BARBARA Sertraline HCl (Sertraline Hcl 50 Mg Tablet) 50 mg PO DAILY [facility] Last Admin: 11/14/24 10:49 Dose: 50 mg Documented By: GARY Sodium Chloride (0.9 % Sodium Chloride Flush 3 Ml Syringe) 3 ml IVFLUSH QSHIFT [facility] Last Admin: 11/14/24 21:25 Dose: 3 ml Documented By: BARBARA Vitamin D (Cholecalciferol (Vitamin D3) 25 Mcg Tablet) 50 mcg PO DAILY [facility] Last Admin: 11/14/24 10:50 Dose: 50 mcg Documented By: GARY Labs 11/15/24 07:26 11/15/24 07:26 Labs: Laboratory Results - last 24 hr 11/14/24 11/15/24 16:36 07:26 MCV 88.7 88.7 MCH 27.7 28.3 MCHC 31.3 31.9 RDW 13.7 13.7 Plt Count 200 198 MPV 10.5 10.8 Immature Gran % (Auto) 0.4 Neut % (Auto) 64.5 Lymph % (Auto) 26.1 [place] % (Auto) 5.3 Eos % (Auto) 2.6 Baso % (Auto) 1.1 Lymph # (Auto) 1.4 [place] # (Auto) 0.3 Eos # (Auto) 0.1 Baso # (Auto) 0.1 Abs Immat Gran (auto) 0.02 Absolute Neuts (auto) 3.4 Absolute Nucleated RBC 0.000 0.000 Nucleated RBC % (auto) 0.0 0.0 PT 13.4 H INR 1.2 H Anion Gap 10 L Estim Creat Clear Calc 28.2 Estimated GFR 42 Random Glucose 87 Calcium 9.9 Microbiology Microbiology Results: Microbiology 11/13/24 Unknown Urine Culture - Final Urine clean catch - Clean Catch Midstream Assessment and Plan (1) Acute upper GI bleed: Status: Acute Plan 89-year-old female with a past medical history significant for recurrent UTIs, hypothyroid, hypertension, GERD, CAD and dementia who resides at [facility], who presented to the ED yesterday due to aggressive behavior by scratching a nurse significantly on the arm, with requested for a psych eval. the pt was admitted for observation for psych eval and was noted to have a large BM, dark charcoal with liquid and some pink blood. stool guiac + and repeat H+H with subtle drop. Acute upper GI bleed hemoglobin 10.9, 10.0 on repeat, hematocrit 34.4, 31.5 on repeat fecal occult blood test positive GI consult>EGD today Protonix 80 mg IV x1 hold aspirin and omeprazole monitor CBC Dementia care team consult when medically clear continue sertraline, quetiapine Recurrent UTIs continue prophylactic Keflex Hypothyroid continue levothyroxine GERD IV Protonix Hypertension lisinopril and hydrochlorothiazide CAD continue statin, hold aspirin Full code VTE prophylaxis: Pneumoboots due to GI bleed DISPO PT consultation Quality Stroke Does the patient have a stroke diagnosis?: No VTE Prior VTE?: No VTE Risk Level:: Medical - moderate - high VTE Device Contraindication: N/A - Device Ordered VTE Drug Contraindication: Treatment Not Indicated
[2024-11-15] MEDS: 0.9 % Sodium Chloride Flush 3 ML SYRINGE IVFLUSH ×3 (08:17→20:19)
--- NOTE | 2024-11-15 11:25 | HO.ANESPROP2 ---
FORMERLY [facility] Active Problems Active Problems: All Active Problems (Updated 11/15/24 @ 11:25 by Estrella Hsu RN) Acute upper GI bleed (Acute) HTN (hypertension) (Acute) Hypothyroid (Acute) Recurrent UTI (Acute) HLD (hyperlipidemia) (Acute) Dementia (Acute) Aggressive behavior (Acute) Past Medical History Medical History Hiatal hernia History of DVT (deep vein thrombosis) HTN (hypertension) Hypothyroid Recurrent UTI HLD (hyperlipidemia) Aggressive behavior Dementia Functional capacity: independent ambulation Family History Family history of problems with anesthesia: No Surgical History Surgical History History of ankle surgery H/O colonoscopy History of Problems with Anesthesia: No Social History Social History Household Members: None Housing: Long Term Housing Other:: [facility] Are you a primary manager career to a significant other at home: No Do you presently have visiting nurse or other home services: Yes Alcohol intake: former Patient Tobacco Use Status: Former Tobacco user Tobacco use type: Cigarette e-Cigarette/Vaping Use: Former Use Advance Directives Date on File: 04/19/24 Meds Allergies Allergy/AdvReac Type Severity Reaction Status Date / Time No Known Allergies Allergy Verified 11/15/24 11:07 Active Medications: Current Medications Acetaminophen (Acetaminophen 325 Mg Tablet) 975 mg PO Q6H PRN PRN Reason: Pain, Mild 1-3,fever,headache Ascorbic Acid (Ascorbic Acid 250 Mg Tablet) 250 mg PO DAILY [facility] Last Admin: 11/15/24 08:18 Dose: Not Given Atorvastatin Calcium (Atorvastatin Calcium 40 Mg Tablet) 40 mg PO DAILY [facility] Last Admin: 11/15/24 08:15 Dose: 40 mg Calcium Carbonate (Calcium Carbonate 750 Mg Tab.Chew) 750 mg PO Q4H PRN PRN Reason: Heartburn Cephalexin HCl (Cephalexin 250 Mg Capsule) 250 mg PO MoWeFr [facility] Last Admin: 11/14/24 10:55 Dose: 250 mg Ferrous Sulfate (Ferrous Sulfate 324 Mg Tablet.Dr) 324 mg PO DAILY [facility] Last Admin: 11/15/24 08:18 Dose: Not Given Levothyroxine Sodium (Levothyroxine Sodium 50 Mcg Tablet) 50 mcg PO DAILY@0600 [facility] Last Admin: 11/15/24 05:39 Dose: 50 mcg Lisinopril (Lisinopril 10 Mg Tablet) 10 mg PO DAILY [facility]; Protocol Last Admin: 11/15/24 08:15 Dose: 10 mg Magnesium Hydroxide (Milk Of Magnesia 30 Ml Oral.Susp) 30 ml PO DAILY PRN PRN Reason: Constipation Melatonin (Melatonin 3 Mg Tablet) 6 mg PO BEDTIME [facility] Last Admin: 11/14/24 21:25 Dose: 6 mg Pantoprazole Sodium (Pantoprazole Sodium 40 Mg/10 Ml Vial) 40 mg IVPUSH BID@0630,1630 [facility] Last Admin: 11/15/24 05:38 Dose: 40 mg Quetiapine Fumarate (Quetiapine Fumarate 50 Mg Tablet) 50 mg PO BID [facility] Last Admin: 11/15/24 08:15 Dose: 50 mg Sertraline HCl (Sertraline Hcl 50 Mg Tablet) 50 mg PO DAILY [facility] Last Admin: 11/15/24 08:15 Dose: 50 mg Sodium Chloride (0.9 % Sodium Chloride Flush 3 Ml Syringe) 3 ml IVFLUSH QSHIFT [facility] Last Admin: 11/15/24 08:17 Dose: 3 ml Vitamin D (Cholecalciferol (Vitamin D3) 25 Mcg Tablet) 50 mcg PO DAILY [facility] Last Admin: 11/15/24 08:18 Dose: Not Given Home Medications ?Medication ?Instructions ?Recorded ?Confirmed ?Last Taken ?Type Lactobacillus acidophilus 500 500 cell PO DAILY 11/13/24 11/13/24 Unknown History million cell tablet ascorbic acid (vitamin C) 250 mg 250 mg PO DAILY 11/13/24 11/13/24 Unknown History tablet (Vitamin C) aspirin 81 mg tablet,delayed 81 mg PO DAILY 11/13/24 11/15/24 11/12/24 History release atorvastatin 40 mg tablet 40 mg PO DAILY 11/13/24 11/13/24 Unknown History cephalexin 250 mg tablet 250 mg PO MOWEFR 11/13/24 11/14/24 Unknown History cholecalciferol (vitamin D3) 50 50 mcg PO DAILY 11/13/24 11/13/24 Unknown History mcg (2,000 unit) capsule (Vitamin D3) ferrous gluconate 324 mg (36 mg 324 mg PO DAILY 11/13/24 11/13/24 Unknown History iron) tablet hydrochlorothiazide 12.5 mg tablet 12.5 mg PO DAILY 11/13/24 11/13/24 Unknown History levothyroxine 50 mcg tablet 50 mcg PO DAILY 11/13/24 11/13/24 Unknown History lisinopril 10 mg tablet 10 mg PO DAILY 11/13/24 11/13/24 Unknown History omeprazole 20 mg capsule,delayed 20 mg PO DAILY 11/13/24 11/13/24 Unknown History release quetiapine 50 mg tablet 50 mg PO BID@0900,1600 11/13/24 11/14/24 Unknown History sertraline 50 mg tablet 50 mg PO DAILY 11/13/24 11/13/24 Unknown History magnesium hydroxide 400 mg/5 mL 2,400 mg PO DAILY PRN Constipation 11/14/24 11/14/24 Unknown History oral suspension (Milk of Magnesia) melatonin 3 mg tablet 6 mg PO BEDTIME 11/14/24 11/14/24 Unknown History rivaroxaban 20 mg tablet (Xarelto) 20 mg PO DAILY 11/14/24 11/15/24 11/12/24 History sennosides 8.6 mg tablet (senna) 8.6 mg PO BID PRN Constipation 11/14/24 11/14/24 Unknown History Exam Exam Date and Time: 11/15/2024 Height,Weight and Vital Signs: Height 5 ft Weight 70 kg Last Vital Signs Temp 99 F 11/15/24 10:50 Pulse 65 11/15/24 10:50 Resp 16 11/15/24 10:50 BP 146/67 H 11/15/24 10:50 Pulse Ox 97 11/15/24 10:50 O2 Del Method Room Air 11/15/24 10:50 Pertinent Lab Results Pertinent Lab Results: Laboratory Tests 11/13/24 11/13/24 11/13/24 11:23 11:38 12:59 WBC 5.2 RBC 3.90 L Hgb 10.9 L Hct 34.4 L MCV 88.2 MCH 27.9 MCHC 31.7 RDW 13.8 Plt Count 208 MPV 11.0 Immature Gran % (Auto) 0.2 Neut % (Auto) 70.9 Lymph % (Auto) 20.8 Coles % (Auto) 5.2 Eos % (Auto) 1.9 Baso % (Auto) 1.0 Lymph # (Auto) 1.1 L [place] # (Auto) 0.3 Eos # (Auto) 0.1 Baso # (Auto) 0.1 Abs Immat Gran (auto) 0.01 Absolute Neuts (auto) 3.7 Absolute Nucleated RBC 0.000 Nucleated RBC % (auto) 0.0 PT INR Sodium 140 Potassium 4.7 Chloride 110 H Carbon Dioxide 20 L Anion Gap 15 BUN 25 H Creatinine 1.15 Estim Creat Clear Calc 30.3 Estimated GFR 45 Random Glucose 92 Calcium 10.1 Magnesium 1.9 Total Bilirubin 0.5 Direct Bilirubin 0.2 AST 17 ALT 9 Alkaline Phosphatase 82 C-Reactive Protein 0.27 Total Protein 6.9 Albumin 3.6 Urine Color Yellow Urine Appearance Clear Urine pH 6.0 Ur Specific [place] 1.010 Urine Protein Negative Urine Glucose (UA) Negative Urine Ketones Negative Urine Blood Small (1+) H Urine Nitrite Negative Ur Leukocyte Esterase Small (1+) H Urine RBC 6-10 H Urine WBC 0-5 Ur Squamous Epith Cells 11-20 Urine Bacteria 4+ Hyaline Casts 0-2 Stool Occult Blood Ethyl Alcohol 10 Influenza Type A (PCR) NEGATIVE Influenza Type B (PCR) NEGATIVE RSV RNA Qual (PCR) NEGATIVE SARS-CoV-2 RNA (RT-PCR) NEGATIVE 11/14/24 11/14/24 11/14/24 01:00 02:54 16:36 WBC 5.3 RBC 3.79 L Hgb 10.0 L 10.5 L Hct 31.5 L 33.6 L MCV 88.7 MCH 27.7 MCHC 31.3 RDW 13.7 Plt Count 200 MPV 10.5 Immature Gran % (Auto) 0.4 Neut % (Auto) 64.5 Lymph % (Auto) 26.1 Coles % (Auto) 5.3 Eos % (Auto) 2.6 Baso % (Auto) 1.1 Lymph # (Auto) 1.4 Coles # (Auto) 0.3 Eos # (Auto) 0.1 Baso # (Auto) 0.1 Abs Immat Gran (auto) 0.02 Absolute Neuts (auto) 3.4 Absolute Nucleated RBC 0.000 Nucleated RBC % (auto) 0.0 PT 13.4 H INR 1.2 H Sodium Potassium Chloride Carbon Dioxide Anion Gap BUN Creatinine Estim Creat Clear Calc Estimated GFR Random Glucose Calcium Magnesium Total Bilirubin Direct Bilirubin AST ALT Alkaline Phosphatase C-Reactive Protein Total Protein Albumin Urine Color Urine Appearance Urine pH Ur Specific [place] Urine Protein Urine Glucose (UA) Urine Ketones Urine Blood Urine Nitrite Ur Leukocyte Esterase Urine RBC Urine WBC Ur Squamous Epith Cells Urine Bacteria Hyaline Casts Stool Occult Blood POSITIVE Ethyl Alcohol Influenza Type A (PCR) Influenza Type B (PCR) RSV RNA Qual (PCR) SARS-CoV-2 RNA (RT-PCR) 11/15/24 07:26 WBC 5.9 RBC 3.71 L Hgb 10.5 L Hct 32.9 L MCV 88.7 MCH 28.3 MCHC 31.9 RDW 13.7 Plt Count 198 MPV 10.8 Immature Gran % (Auto) Neut % (Auto) Lymph % (Auto) Coles % (Auto) Eos % (Auto) Baso % (Auto) Lymph # (Auto) [place] # (Auto) Eos # (Auto) Baso # (Auto) Abs Immat Gran (auto) Absolute Neuts (auto) Absolute Nucleated RBC 0.000 Nucleated RBC % (auto) 0.0 PT INR Sodium 143 Potassium 4.3 Chloride 110 H Carbon Dioxide 27 Anion Gap 10 L BUN 17 H Creatinine 1.20 Estim Creat Clear Calc 28.2 Estimated GFR 42 Random Glucose 87 Calcium 9.9 Magnesium Total Bilirubin Direct Bilirubin AST ALT Alkaline Phosphatase C-Reactive Protein Total Protein Albumin Urine Color Urine Appearance Urine pH Ur Specific [place] Urine Protein Urine Glucose (UA) Urine Ketones Urine Blood Urine Nitrite Ur Leukocyte Esterase Urine RBC Urine WBC Ur Squamous Epith Cells Urine Bacteria Hyaline Casts Stool Occult Blood Ethyl Alcohol Influenza Type A (PCR) Influenza Type B (PCR) RSV RNA Qual (PCR) SARS-CoV-2 RNA (RT-PCR) Airway TM Dist: >3cm Loose/Missing/Broken Teeth: No Heart: rrr Lungs: cta Other: deficits in memtal acuity Assessment and Plan Final Anesthetic Review Family History of Problems with Anesthesia: No History of Problems with Anesthesia: No ASA Class: III Final Preanesthetic Review: No Changes in Pt Med Stat, Meds/Allgs Chart Reviewed, Consent Obtained/Reviewed and Anes Risks/Benef Reviewed Patient Risk: Intermediate Procedure Risk: Low Anesthetic Plan Anesthetic Plan: MAC: Disposition: Standard PACU
--- NOTE | 2024-11-15 11:46 | PM.EVENT ---
Event Note Date of Service: 11/15/24 Event Note: EGD large hiatal hernia 2 gastric avms cauterized mild gastritis REC: continue ppi follow hct avoid nsaids hold anticoagulation x 1 week if possible Time Spent With Patient Time: Total time managing care of this patient today ____ minutes.
--- NOTE | 2024-11-15 11:49 | P.BOP_ITS ---
Brief Operative Note Date of Service: 11/15/24 Pre-op diagnosis: GI bleed Post-op diagnosis: same Procedure: EGD Surgeon: Benton Singer MD Anesthesia: MAC Was an Valet Attendant used for this Procedure?: No Estimated blood loss (mL): 2 Pathology: none sent Condition: stable Disposition: PACU
--- NOTE | 2024-11-15 15:15 | OP_ITS ---
DATE OF SERVICE: 11/15/2024 SURGEON: Benton Singer MD INDICATIONS: GI bleeding. PREOPERATIVE DIAGNOSIS: POSTOPERATIVE DIAGNOSIS: PROCEDURE PERFORMED: Upper endoscopy with control of hemorrhage. ESTIMATED BLOOD LOSS: COMPLICATIONS: ANESTHESIA: Monitored anesthesia care. ASSISTANTS: SPECIMENS: PROCEDURE DESCRIPTION: A history and physical was performed. The risks and benefits of the procedure were explained to the patient's son and informed consent was obtained. The patient was placed in the left lateral decubitus position. The Olympus video gastroscope was introduced into the esophagus, stomach, and duodenum. Examination was performed. The scope was removed. She tolerated the procedure well and was taken to recovery in stable condition. FINDINGS: 1. Esophagus: The esophagus was normal. There was a small area suspicious for Barretts esophagus above the EG junction. 2. Stomach: The stomach showed no evidence of masses or ulcers. There was some focal gastritis in the proximal stomach at the level of the hiatal hernia. A 7 cm large hiatal hernia was present. There appeared to be 2 small 1 to 2 mm AVMs with some focal oozing in the fundus of the stomach. These were cauterized using the gold probe. The antrum appeared normal. 3. Duodenum: The bulb and 2nd portion were normal. IMPRESSION: 1. Large hiatal hernia. 2. Gastric AVMs. 3. Gastritis. RECOMMENDATIONS: 1. Follow hematocrit. 2. Hold anticoagulation for 1 week. 3. Continue proton pump inhibitor. 4. Avoid NSAIDs if not necessary. MD JIGNA Mott/KURT / [id number] MTDMak
[2024-11-16 03:49] VITALS: BP 112/55; PULSE 68; RESP 18; TEMP 36.9; O2SAT 93
[2024-11-16 06:03] LABS: Hematocrit 31.7 % (37.0-47.0); Hemoglobin 10.2 g/dl (12.0-16.0); Mean Corpuscular HGB Conc 32.2 g/dl (31.0-35.0); Mean Corpuscular Hemoglobin 28.4 pg (27.0-33.0); Mean Corpuscular Volume 88.3 fL (80.0-98.0); NRBC Abs Auto 0.000 X10*3/uL (0.0-0.012); NRBC Pct Auto 0.0 /100WBC (0.0-0.2); Platelet Count 184 X10*3/uL (160-400); Red Blood Count 3.59 X10*6/uL (4.20-5.50); White Blood Count 7.7 X10*3/uL (4.8-10.8)
[2024-11-16 06:15] LABS: Anion Gap 11 (12-20); Blood Urea Nitrogen 17 mg/dL (9-16); Calcium 9.1 mg/dL (8.4-10.2); Carbon Dioxide 23 mmol/L (22-29); Chloride 110 mmol/L (96-108); Creatinine Clr Calc Pharmacy 26.7; Estimated Glomerular Filt Rate 40; Potassium 3.9 mmol/L (3.3-5.1); Sodium 140 mmol/L (135-145)
[2024-11-16 07:18] VITALS: BP 119/61; PULSE 75; RESP 16; TEMP 36.6; O2SAT 99
[2024-11-16] MEDS: 0.9 % Sodium Chloride Flush 3 ML SYRINGE IVFLUSH ×3 (08:03→20:35)
[2024-11-16] MEDS: Ferrous Sulfate 324 MG TABLET.DR PO (08:03)
--- NOTE | 2024-11-16 08:44 | HO.POSTANES ---
Post Anesthesia Evaluation Post Anesthesia Evaluation Date of Service: 11/16/24 Vital Signs: Vital Signs Temp Pulse Resp BP Pulse Ox O2 Del Method 11/16/24 07:18 97.9 F 75 16 119/61 99 Room Air 11/16/24 03:49 98.5 F 68 18 112/55 L 93 Room Air Anesthesia: Monitored Mental Status: Awake Pain Control: Satisfactory Nausea/Vomiting: None Hydration: Adequate Anesthesia-Related Issues: No Anes. Related Issues
--- NOTE | 2024-11-16 09:20 | MHC.CM.PN ---
Addendum entered by Ekaterina Lakhani 11/16/24 16:05: Per Provider The son has spoken with psych. The appeal is cancelled. The plan is to return to [facility] tomorrow. Addendum entered by Ekaterina Lakhani 11/16/24 15:50: Patient was seen by psych and does not qualify for IPLOC. Patient ready for discharge today. T/W notified pt's son Jaime of discharge today. He has decided to appeal the discharge . [facility] notified of discharge and appeal of discharge. T/W spoke with nurseFLORENCE. Original Note: IMM 11/16/24 Patient from [facility] DX Agressive behaviors HX Dementia She has recently been spending days in the memory care unit @ the [facility]. Family required to stay over night recently. She is independent with ambulation. She requires supervision and assist. She was scoped yesterday for GIB. She is medically clear for Careteam consult. DP IPLOC r/t aggressive behaviors, scratched nurse @ facility. DP IPLOC vs return to [facility] with family transportation.
--- NOTE | 2024-11-16 09:32 | HO.PM.IMPN ---
Subjective Subjective Date of Service: 11/16/24 Review of Systems Follow up GI bleed No bleeding episodes no nausea, vomiting or diarhea Physical Exam Vital Signs: Vital Signs: Last Vital Signs Temp 97.9 F 11/16/24 07:18 Pulse 75 11/16/24 07:18 Resp 16 11/16/24 07:18 BP 119/61 11/16/24 07:18 Pulse Ox 99 11/16/24 07:18 O2 Del Method Room Air 11/16/24 07:18 O2 Flow Rate 6 11/15/24 11:50 BMI result Body Mass Index 30.1 Appearing in no acute distress head is normocephalic atraumatic eyes pupils are PERRLA sclera is anicteric mouth throat mucous membranes are intact and moist neck is supple no lymphadenopathy, no JVD noted lung sounds are clear to auscultation heart regular rate rhythm, clear S1, S2 positive bowel sounds, abdomen is soft, nontender neuro patient is alert x3, no focal deficits Objective Data Active Medications Acetaminophen (Acetaminophen 325 Mg Tablet) 975 mg PO Q6H PRN PRN Reason: Pain, Mild 1-3,fever,headache Ascorbic Acid (Ascorbic Acid 250 Mg Tablet) 250 mg PO DAILY [facility] Last Admin: 11/16/24 08:03 Dose: 250 mg Documented By: ARABELLA Atorvastatin Calcium (Atorvastatin Calcium 40 Mg Tablet) 40 mg PO DAILY [facility] Last Admin: 11/16/24 08:03 Dose: 40 mg Documented By: ARABELLA Calcium Carbonate (Calcium Carbonate 750 Mg Tab.Chew) 750 mg PO Q4H PRN PRN Reason: Heartburn Cephalexin HCl (Cephalexin 250 Mg Capsule) 250 mg PO MoWeFr [facility] Last Admin: 11/16/24 09:06 Dose: 250 mg Documented By: ARABELLA Ferrous Sulfate (Ferrous Sulfate 324 Mg Tablet.Dr) 324 mg PO DAILY [facility] Last Admin: 11/16/24 08:03 Dose: 324 mg Documented By: ARABELLA Levothyroxine Sodium (Levothyroxine Sodium 50 Mcg Tablet) 50 mcg PO DAILY@0600 [facility] Last Admin: 11/16/24 05:54 Dose: 50 mcg Documented By: ABDIEL Lisinopril (Lisinopril 10 Mg Tablet) 10 mg PO DAILY [facility]; Protocol Last Admin: 11/16/24 08:03 Dose: 10 mg Documented By: ARABELLA Magnesium Hydroxide (Milk Of Magnesia 30 Ml Oral.Susp) 30 ml PO DAILY PRN PRN Reason: Constipation Melatonin (Melatonin 3 Mg Tablet) 6 mg PO BEDTIME [facility] Last Admin: 11/15/24 20:18 Dose: 6 mg Documented By: ABDIEL Naloxone HCl (Naloxone Hcl 0.4 Mg/Ml Vial) 0.04 mg IVPUSH Q5M PRN PRN Reason: Excessive sedation or RR < 8 Pantoprazole Sodium (Pantoprazole Sodium 40 Mg/10 Ml Vial) 40 mg IVPUSH BID@0630,1630 [facility] Last Admin: 11/16/24 05:54 Dose: 40 mg Documented By: ABDIEL Quetiapine Fumarate (Quetiapine Fumarate 50 Mg Tablet) 50 mg PO BID [facility] Last Admin: 11/16/24 08:02 Dose: 50 mg Documented By: ARABELLA Sertraline HCl (Sertraline Hcl 50 Mg Tablet) 50 mg PO DAILY [facility] Last Admin: 11/16/24 08:02 Dose: 50 mg Documented By: ARABELLA Sodium Chloride (0.9 % Sodium Chloride Flush 3 Ml Syringe) 3 ml IVFLUSH QSHIFT [facility] Last Admin: 11/16/24 08:03 Dose: 3 ml Documented By: ARABELLA Vitamin D (Cholecalciferol (Vitamin D3) 25 Mcg Tablet) 50 mcg PO DAILY [facility] Last Admin: 11/16/24 08:02 Dose: 50 mcg Documented By: ARABELLA Labs 11/16/24 05:31 11/16/24 05:31 Labs: Laboratory Results - last 24 hr 11/16/24 05:31 MCV 88.3 MCH 28.4 MCHC 32.2 RDW 13.7 Plt Count 184 MPV 11.3 Absolute Nucleated RBC 0.000 Nucleated RBC % (auto) 0.0 Anion Gap 11 L Estim Creat Clear Calc 26.7 Estimated GFR 40 Random Glucose 102 Calcium 9.1 D Assessment and Plan (1) Acute upper GI bleed: Status: Acute Plan 89-year-old female with a past medical history significant for recurrent UTIs, hypothyroid, hypertension, GERD, CAD and dementia who resides at [facility], who presented to the ED yesterday due to aggressive behavior by scratching a nurse significantly on the arm, with requested for a psych eval. the pt was admitted for observation for psych eval and was noted to have a large BM, dark charcoal with liquid and some pink blood. stool guiac + and repeat H+H with subtle drop. Acute upper GI bleed fecal occult blood test positive GI consult>EGD showed large hiatal hernia, to gastric AVMs cauterized and mild gastritis. Recommend holding anticoagulation for 1 week, continue PPI avoid NSAIDs Protonix 80 mg IV x1 Continue PPI Aspirin stopped Dementia Seen by care team with recommendation for psychiatric team to determine disposition continue sertraline, quetiapine Recurrent UTIs continue prophylactic Keflex Hypothyroid continue levothyroxine GERD Oral PPI Hypertension lisinopril and hydrochlorothiazide CAD continue statin, hold aspirin Full code VTE prophylaxis: Pneumoboots due to GI bleed Quality Stroke Does the patient have a stroke diagnosis?: No VTE Prior VTE?: No VTE Risk Level:: Medical - moderate - high VTE Device Contraindication: N/A - Device Ordered VTE Drug Contraindication: Treatment Not Indicated
--- NOTE | 2024-11-16 13:24 | PM.PSYCN ---
History of Present Illness Date of Service: 11/16/2024 Chief Complaint: GI Bleed Reason for Consult: Aggressive behavior Requesting physician: Chel King Discussed with referring provider: Yes Sources of Information: patient interviewed, chart reviewed and crisis/core team assessment reviewed HPI Narrative: 1300: 86-year-old female with history of delirium and dementia. Presented to [facility] on 11/13/24 with reports of aggressive behavior. She significantly scratched a staff member today she presented to the ED. She resides in an, unlocked unit, in an assisted living facility. Parking Line Painter of the assisted living facility noted that the patient has been exhibiting aggressive behavior almost every day. Per care team report, the patient's symptoms started after she returned home in April 2024 from having surgery of her broken leg related to that same month. She was transferred to an assisted living facility on 08/02/2024. Care team also noted that the patient's son states that her aggression with staff and family members have progressively worsened in the past 3 weeks; she has been hospitalized at [facility] 3 times for 3-5 weeks for confusion and aggressive behavior. Psychiatry consult requested after medical clearance. This provider found the patient ambulating in the hallway with a walker with nurse guidance. She was interviewed while she was sitting in the recliner in her room. She is pleasant and alert, oriented to person and place, and cooperative throughout the interview. She states I'm 86. You are not going to get much out of my head. It's kind of worn out. She had no recollection for the reason for this hospitalization. She is unaware that she was aggressive and scratched a staff member at the assisted living facility. She notes that is very unlikely of me. Unless i lost my mind. I am sorry that i might have done that. She is not in acute distress at this time. According to nursing and chart review, patient has not had any episode of aggression or delirium during this hospital stay. 1545: Spoke with the patient's son Jaime Turpin who states that that the patient's symptoms her mostly present between 15:00 and early evening. He is informed that the patient may be sundowning. Inform about current treatment plan which he agrees. Medical Evaluation Reviewed: Hospitalist [facility] Medical History Hiatal hernia History of DVT (deep vein thrombosis) HTN (hypertension) Hypothyroid Recurrent UTI HLD (hyperlipidemia) Aggressive behavior Dementia Surgical History History of ankle surgery H/O colonoscopy Diagnostics Vital Signs (24Hr): Vital Signs - 24 hr 11/15/24 15:40 11/15/24 19:19 11/16/24 03:49 Temperature 98.2 F 98.9 F 98.5 F Pulse Rate 75 77 68 Respiratory Rate 16 18 18 Blood Pressure 154/68 H 133/62 112/55 L Pulse Oximetry 93 96 93 Oxygen Delivery Method Room Air Room Air Room Air 11/16/24 07:18 Temperature 97.9 F Pulse Rate 75 Respiratory Rate 16 Blood Pressure 119/61 Pulse Oximetry 99 Oxygen Delivery Method Room Air BMI result Body Mass Index 30.1 Labs 11/17/24 06:15 11/17/24 06:15 Labs: Laboratory Results - last 48 hr 11/14/24 11/15/24 11/16/24 16:36 07:26 05:31 WBC 5.3 5.9 7.7 RBC 3.79 L 3.71 L 3.59 L Hgb 10.5 L 10.5 L 10.2 L Hct 33.6 L 32.9 L 31.7 L MCV 88.7 88.7 88.3 MCH 27.7 28.3 28.4 MCHC 31.3 31.9 32.2 RDW 13.7 13.7 13.7 Plt Count 200 198 184 MPV 10.5 10.8 11.3 Immature Gran % (Auto) 0.4 Neut % (Auto) 64.5 Lymph % (Auto) 26.1 [place] % (Auto) 5.3 Eos % (Auto) 2.6 Baso % (Auto) 1.1 Lymph # (Auto) 1.4 [place] # (Auto) 0.3 Eos # (Auto) 0.1 Baso # (Auto) 0.1 Abs Immat Gran (auto) 0.02 Absolute Neuts (auto) 3.4 Absolute Nucleated RBC 0.000 0.000 0.000 Nucleated RBC % (auto) 0.0 0.0 0.0 PT 13.4 H INR 1.2 H Sodium 143 140 Potassium 4.3 3.9 Chloride 110 H 110 H Carbon Dioxide 27 23 Anion Gap 10 L 11 L BUN 17 H 17 H Creatinine 1.20 1.27 Estim Creat Clear Calc 28.2 26.7 Estimated GFR 42 40 Random Glucose 87 102 Calcium 9.9 9.1 D Mental Status Exam Mental Status Exam Narrative: Appearance: Casually dressed, adequate hygiene Behavior: Calm and cooperative throughout the interview. Eye contact is appropriate, and there are no signs of psychomotor agitation or retardation Speech: Normal volume and prosody Thought process: logical and goal-directed Thought content: Future oriented no self-harming thoughts Mood: Cheerful Affect: Full, mood-congruent SI:denies HI:denies VH/AH:none Delusions: None Insight/judgment: Impaired insight and judgment Memory/cog: Alert and oriented to person and place. grossly intact to conversational testing Medications Medications Current Medications Acetaminophen (Acetaminophen 325 Mg Tablet) 975 mg PO Q6H PRN PRN Reason: Pain, Mild 1-3,fever,headache Ascorbic Acid (Ascorbic Acid 250 Mg Tablet) 250 mg PO DAILY FOR[facility]LY [facility], [facility] Last Admin: 11/16/24 08:03 Dose: 250 mg Atorvastatin Calcium (Atorvastatin Calcium 40 Mg Tablet) 40 mg PO DAILY [facility], [facility] Last Admin: 11/16/24 08:03 Dose: 40 mg Calcium Carbonate (Calcium Carbonate 750 Mg Tab.Chew) 750 mg PO Q4H PRN PRN Reason: Heartburn Cephalexin HCl (Cephalexin 250 Mg Capsule) 250 mg PO MoWeFr [facility], [facility] Last Admin: 11/16/24 09:06 Dose: 250 mg Ferrous Sulfate (Ferrous Sulfate 324 Mg Tablet.) 324 mg PO DAILY [facility], [facility] Last Admin: 11/16/24 08:03 Dose: 324 mg Levothyroxine Sodium (Levothyroxine Sodium 50 Mcg Tablet) 50 mcg PO DAILY@0600 [facility], [facility] Last Admin: 11/16/24 05:54 Dose: 50 mcg Lisinopril (Lisinopril 10 Mg Tablet) 10 mg PO DAILY [facility], [facility]; Protocol Last Admin: 11/16/24 08:03 Dose: 10 mg Magnesium Hydroxide (Milk Of Magnesia 30 Ml Oral.Susp) 30 ml PO DAILY PRN PRN Reason: Constipation Melatonin (Melatonin 3 Mg Tablet) 6 mg PO BEDTIME [facility] Last Admin: 11/15/24 20:18 Dose: 6 mg Naloxone HCl (Naloxone Hcl 0.4 Mg/Ml Vial) 0.04 mg IVPUSH Q5M PRN PRN Reason: Excessive sedation or RR < 8 Pantoprazole Sodium (Pantoprazole Sodium 40 Mg/10 Ml Vial) 40 mg IVPUSH BID@0630,1630 [facility] Last Admin: 11/16/24 05:54 Dose: 40 mg Quetiapine Fumarate (Quetiapine Fumarate 50 Mg Tablet) 50 mg PO BID [facility] Last Admin: 11/16/24 08:02 Dose: 50 mg Sertraline HCl (Sertraline Hcl 50 Mg Tablet) 50 mg PO DAILY [facility] Last Admin: 11/16/24 08:02 Dose: 50 mg Sodium Chloride (0.9 % Sodium Chloride Flush 3 Ml Syringe) 3 ml IVFLUSH QSHIFT [facility] Last Admin: 11/16/24 08:03 Dose: 3 ml Vitamin D (Cholecalciferol (Vitamin D3) 25 Mcg Tablet) 50 mcg PO DAILY [facility] Last Admin: 11/16/24 08:02 Dose: 50 mcg Allergies Allergies Allergy/AdvReac Type Severity Reaction Status Date / Time No Known Allergies Allergy Verified 11/15/24 11:07 Assessment & Plan Assessment & Plan (1) Dementia: Status: Acute Code(s): F03.90 - Unspecified dementia, unspecified severity, without behavioral disturbance, psychotic disturbance, mood disturbance, and anxiety Assessment and Plan: 86-year-old female with history of delirium and dementia. Presented to [facility] on 11/13/24 with reports of aggressive behavior. She significantly scratched a staff member today she presented to the ED. She resides in an, unlocked unit, in an assisted living facility. Parking Line Painter of the assisted living facility noted that the patient has been exhibiting aggressive behavior almost every day. Per care team report, the patient's symptoms started after she returned home in April 2024 from having surgery of her broken leg related to that same month. She was transferred to an assisted living facility on 08/02/2024. Care team also noted that the patient's son states that her aggression with staff and family members have progressively worsened in the past 3 weeks; she has been hospitalized at [facility] 3 times for 3-5 weeks for confusion and aggressive behavior. Psychiatry consult requested after medical clearance. This provider found the patient ambulating in the hallway with a walker with nurse guidance. She was interviewed while she was sitting in the recliner in her room. She is pleasant and alert, oriented to person and place, and cooperative throughout the interview. She states I'm 86. You are not going to get much out of my head. It's kind of worn out. She had no recollection for the reason for this hospitalization. She is unaware that she was aggressive and scratched a staff member at the assisted living facility. She notes that is very unlikely of me. Unless i lost my mind. I am sorry that i might have done that. She is not in acute distress at this time. According to nursing and chart review, patient has not had any episode of aggression or delirium during this hospital stay. Plan Patient's son advise for the patient to take her second dose of quetiapine 2 hours before current scheduled time to prevent confusion, aggression, or sundowning. She has normocystic anemia; however, will check iron studies and correct iron-deficiency, if present, that may cause or worsens her symptoms. Will also check vitamin D3, TSH/T4, vitamin B12 and folate levels and correct any deficiency that may cause or exacerbate her symptoms. Requesting provider for this consult, agrees with the treatment plan. Total time managing care of this patient today ____ minutes. Patient educated on: medication risk/benefits and therapeutic strategies
[2024-11-16 14:57] VITALS: BP 119/61; PULSE 75; O2SAT 99
[2024-11-16 15:45] VITALS: BP 110/51; PULSE 73; RESP 16; TEMP 37.1; O2SAT 93
[2024-11-16 15:46] LABS: Iron 25 mcg/dL (30-160); Percent Iron Saturation 10 % (15-50); Total Iron Binding Capacity 244 mcg/dL (228-428); Unsaturated Iron Binding 219 ug/dL
[2024-11-16 16:02] LABS: Ferritin 33 ng/mL (10-250)
[2024-11-16 16:15] LABS: Folate 5.8 ng/mL (> or = 4.0); Vitamin B12 294 pg/mL (200-900)
[2024-11-16 20:00] VITALS: BP 131/60; PULSE 72; RESP 18; TEMP 37.1; O2SAT 97
[2024-11-17 03:25] VITALS: BP 138/60; PULSE 65; RESP 18; TEMP 36.6; O2SAT 99
[2024-11-17 06:44] LABS: Hematocrit 32.7 % (37.0-47.0); Hemoglobin 10.2 g/dl (12.0-16.0); Mean Corpuscular HGB Conc 31.2 g/dl (31.0-35.0); Mean Corpuscular Hemoglobin 27.7 pg (27.0-33.0); Mean Corpuscular Volume 88.9 fL (80.0-98.0); NRBC Abs Auto 0.000 X10*3/uL (0.0-0.012); NRBC Pct Auto 0.0 /100WBC (0.0-0.2); Platelet Count 174 X10*3/uL (160-400); Red Blood Count 3.68 X10*6/uL (4.20-5.50); White Blood Count 5.4 X10*3/uL (4.8-10.8)
[2024-11-17 07:00] LABS: Anion Gap 12 (12-20); Blood Urea Nitrogen 19 mg/dL (9-16); Calcium 9.0 mg/dL (8.4-10.2); Carbon Dioxide 25 mmol/L (22-29); Chloride 110 mmol/L (96-108); Creatinine Clr Calc Pharmacy 28.5; Estimated Glomerular Filt Rate 43; Potassium 3.9 mmol/L (3.3-5.1); Sodium 143 mmol/L (135-145)
[2024-11-17 07:16] VITALS: BP 135/63; PULSE 65; RESP 16; TEMP 36.7; O2SAT 95
--- NOTE | 2024-11-17 08:01 | P.DS_ITS ---
DS: Providers Provider Date of Service: 11/17/24 Date of admission: 11/14/24 03:27 Date of discharge: 11/17/24 Primary care physician: Elizabeth Urrutia MD Consults: 11/13/24 17:18 ED CARE Team Crisis Consult Stat Comment: Reason for consultation: Behav change in guerita pt in nurs home, aggressiv.On zoloftavtarl, traz 11/14/24 06:01 Consult to Gastroenterology Routine Consulting Provider: Denys Felder Reason for consultation: acute GI bleed Has provider been notified: No 11/15/24 16:26 Consult to Psychiatry Routine Consulting Provider: [facility] Psych Covering Reason for consultation: dementia, aggressive, see care team note, disposition DS: Diagnosis Discharge Diagnosis (1) Dementia: Status: Acute DS: Summary Hospital Course Hospital Course: admission hpi Chief Complaint: melena Patient is an 89-year-old female with a past medical history significant for recurrent UTIs and dementia who resides at [facility], who presented to the ED yesterday due to aggressive behavior by scratching a nurse significantly on the arm, with requested for a psych eval. the pt was admitted for observation for psych eval and was noted to have a large BM, dark charcoal with liquid and some pink blood. stool guiac + and repeat H+H with subtle drop. the pt will now be admitted for acute GI bleed. the pt denies any chest pain, SOB, abd pain, nausea, vomiting, abd pain, or urinary sx. no history of melena or GI bleeds in the past. no etoh or heavy NSAID use. hospital course: 89-year-old female with a past medical history significant for recurrent UTIs, hypothyroid, hypertension, GERD, CAD and dementia who resides at [facility], who presented to the ED yesterday due to aggressive behavior by scratching a nurse significantly on the arm, with requested for a psych eval. the pt was admitted for observation for psych eval and was noted to have a large BM, dark charcoal with liquid and some pink blood. stool guiac + and repeat H+H with subtle drop. Acute upper GI bleed fecal occult blood test positive GI consult and she had EGD showing a large hiatal hernia, 2 gastric AVMs cauterized and mild gastritis. GI recommends holding anticoagulation for 1 week, continue PPI avoid NSAIDs. Stopping aspirin Dementia sith aggresive behavior Seen by care team with recommendation for psychiatric team with recommendation to continue continue sertraline, quetiapine but seroquel to be given 2 hours earlier. She has been doing well with no further behavior issues Recurrent UTIs continue prophylactic Keflex Hypothyroid continue levothyroxine GERD Oral PPI Hypertension lisinopril and hydrochlorothiazide CAD continue statin, hold aspirin Time Attestation Discharge Coordination Time (in mins): 40 Quality: Safe Use of Opioids Does Pt have an Active Cancer Diagnosis on the Problem List?: No Quality: Stroke Does the patient have a stroke diagnosis?: No Physical Exam Vital Signs: Vital Signs: Last Vital Signs Temp 98.1 F 11/17/24 07:16 Pulse 65 11/17/24 07:16 Resp 16 11/17/24 07:16 BP 135/63 11/17/24 07:16 Pulse Ox 95 11/17/24 07:16 O2 Del Method Room Air 11/17/24 07:16 O2 Flow Rate 6 11/15/24 11:50 BMI result Body Mass Index 30.1 DS: Data Data Completed and Pending Labs on day of discharge: Laboratory Results - last 24 hr 11/16/24 11/17/24 15:15 06:15 WBC 5.4 RBC 3.68 L Hgb 10.2 L Hct 32.7 L MCV 88.9 MCH 27.7 MCHC 31.2 RDW 13.7 Plt Count 174 MPV 11.2 Absolute Nucleated RBC 0.000 Nucleated RBC % (auto) 0.0 Sodium 143 Potassium 3.9 Chloride 110 H Carbon Dioxide 25 Anion Gap 12 BUN 19 H Creatinine 1.19 Estim Creat Clear Calc 28.5 Estimated GFR 43 Random Glucose 85 Calcium 9.0 Iron 25 L TIBC 244 % Saturation 10 L Unsat Iron Binding 219 Ferritin 33 Vitamin B12 294 Folate 5.8 TSH 0.44 Discharge Plan Discharge Anticipated Discharge Date/Time: 11/17/24 13:41 Patient Disposition: Home Health Service Discharge Diagnosis: Acute GI bleed, acute blood loss anemia, Agitation Referrals: Jenae PIAN [Outside] - 1 Week Elizabeth Urrutia MD [Primary Care Provider, Medical] - 1 Week Discharge Medications: Continued atorvastatin 40 mg tablet 40 mg PO DAILY cephalexin 250 mg tablet 250 mg PO MOWE Rx Instructions: take one tablet thu, thu, thursday aspirin 81 mg tablet,delayed release (DR/EC) 81 mg PO DAILY levothyroxine 50 mcg tablet 50 mcg PO DAILY lisinopril 10 mg tablet 10 mg PO DAILY hydrochlorothiazide 12.5 mg tablet 12.5 mg PO DAILY Lactobacillus acidophilus 500 million cell Tablet 500 cell PO DAILY ferrous gluconate 324 mg (36 mg iron) Tablet 324 mg PO DAILY ascorbic acid (vitamin C) [Vitamin C] 250 mg Tablet 250 mg PO DAILY sertraline 50 mg tablet 50 mg PO DAILY cholecalciferol (vitamin D3) [Vitamin D3] 50 mcg (2,000 unit) Capsule 50 mcg PO DAILY sennosides [senna] 8.6 mg Tablet 8.6 mg PO BID PRN (Reason: Constipation) magnesium hydroxide [Milk of Magnesia] 400 mg/5 mL Suspension 2,400 mg PO DAILY PRN (Reason: Constipation) melatonin 3 mg Tablet 6 mg PO BEDTIME Changed omeprazole 20 mg capsule,delayed release(DR/EC) 20 mg PO BID Qty: 60 0RF quetiapine 50 mg tablet 50 mg PO BID@0700,1400 Qty: 30 0RF Rx Instructions: at 7 am and 2 pm Held Xarelto 20 mg tablet 20 mg PO DAILY Hold Instructions: Resume on 11/23/24. Discharge Orders: Discharge Order (Routine); Ordered 11/17/24 Ordered By: Ignacio Cline Diet: Advance to usual diet Activity on Discharge: As tolerated Stand Alone Forms: Patient Portal Discharge page Print Language: Bahraini Care Plan Goals: recovery from GIB bleed, agitation Health Concerns: GI bleeding, agitaion Plan of Treatment: hold Xarelto for one week Give seroquel 2 hours earlier than previous time now 7 am and 2 pm Assessment: see above Discharge Date/Time: 11/17/24 14:10
[2024-11-17] MEDS: 0.9 % Sodium Chloride Flush 3 ML SYRINGE IVFLUSH (08:29)
[2024-11-17] MEDS: Ferrous Sulfate 324 MG TABLET.DR PO (08:29)
--- NOTE | 2024-11-17 10:59 | MHC.CM.PN ---
Per MD, patient medically cleared for dc back to [facility]. PT rec home services. [facility], preferred, has accepted. CM spoke w/ son/HCP Jaime. He is in agreement w/ plan and requesting BLS transport. He would like Medicare to pay for transport, but is aware CM cannot guarantee insurance payment. He verbalized understanding. He will email copies of HCP and DPOA. BLS transport scheduled for 2pm. , RN and ALONDRA aware.
[2024-11-17 13:32] VITALS: BP 158/68; PULSE 64; RESP 17; TEMP 36.9; O2SAT 97
--- NOTE | 2024-11-17 16:30 | P.F2F_ITS ---
Service Date Service Date: 11/17/24 Encounter Date of encounter: 11/17/24 Encounter: weakness realted to hospitalization Reasons for Services Signs and symptoms assessed: 45 Homebound: Leaving the home is medically contraindicated at this time without the asist of a device and/or another person due th the listed conditions above and below. Reason homebound: cognitively impaired / unsafe and weakness related to hospital stay Homebound supporting statement: homebound due to weakness related to hospitalization, cognitive impairment with agiation and therefore needs the assitance of another person Certification: Based on the above findings, I certify that this patient is confined to the home and needs intermittent nursing home care, physical therapy and/or speech therapy, or continues to need occupational therapy. The patient is under my care, and I have initiated the establishment of the plan of care. The patient will be followed by a physician who will periodically review the plan of care. Time Spent With Patient Time: Total time managing care of this patient today ____ minutes.
[2024-11-21 12:29] LABS: Vitamin D 25-OH, D2 <4 ng/mL; Vitamin D 25-OH, D3 27 ng/mL; Vitamin D 25-OH, Total 27 ng/mL (30-100)
== END 2024-11-17 14:10 | disposition home health service (06) | DRG 378 ==
LOC: HO.ED 19:31 → HO.EDOVER 11-14 03:32 → HO.IMC 11-14 14:35 → HO.S3 11-14 15:18
PROVIDERS: Internal Medicine; Nurse Practitioner Family; Physician Assistant; Physician Assistant Medical; Admitting Provider Internal Medicine Gastroenterology; Emergency Provider Emergency Medicine; PCP Internal Medicine; Visit Provider Internal Medicine
PROC: 0W3P8ZZ Control Bleeding in Gastrointestinal Tract, Via Natural or Artificial Opening Endoscopic (ICD-10-PCS; principal; 2024-11-15 11:40)
DX: K31.811 Angiodysplasia of stomach and duodenum with bleeding (principal); D62 Acute posthemorrhagic anemia; F03.911 Unspecified dementia, unspecified severity, with agitation; E03.9 Hypothyroidism, unspecified; I10 Essential (primary) hypertension; I25.10 Atherosclerotic heart disease of native coronary artery without angina pectoris; K29.71 Gastritis, unspecified, with bleeding; K44.9 Diaphragmatic hernia without obstruction or gangrene; K22.70 Barrett's esophagus without dysplasia; K21.9 Gastro-esophageal reflux disease without esophagitis; Z20.822 Contact with and (suspected) exposure to COVID-19; Z87.891 Personal history of nicotine dependence; Z87.440 Personal history of urinary (tract) infections; Z79.2 Long term (current) use of antibiotics; Z79.01 Long term (current) use of anticoagulants; Z79.82 Long term (current) use of aspirin; Z79.890 Hormone replacement therapy; Z79.899 Other long term (current) drug therapy
CPT/HCPCS: 36415; 71045; 80048; 80076; 80307; 81001; 82272; 82306; 82607; 82728; 82746; 83540; 83735; 84443; 85014; 85018; 85025; 85027; 85610; 86140; 87086; 87637; 93005; 97161; 97530; 99285; C1889; J2003; J2470; J2704; J7120; S9485

== ENCOUNTER → 2024-11-13 11:03 | Outpatient (BNV) | payer OTHER, MEDICARE, SELFPAY | PROVIDERS: Emergency Provider Emergency Medicine; PCP Internal Medicine; Visit Provider Radiology Vascular & Interventional Radiology | DX: R53.1 Weakness (principal) | CPT/HCPCS: 71045 ==

== ENCOUNTER → 2024-11-13 11:03 | Outpatient (BNV) | payer OTHER, MEDICARE, SELFPAY | PROVIDERS: Admitting Provider Student in an Organized Health Care Education/Training Program; Emergency Provider Emergency Medicine; PCP Internal Medicine; Visit Provider Internal Medicine | DX: R53.1 Weakness (principal) | CPT/HCPCS: 93010 ==

== ENCOUNTER → 2024-11-14 03:27 | Outpatient (BNV) | payer OTHER, MEDICARE, SELFPAY | PROVIDERS: Admitting Provider Student in an Organized Health Care Education/Training Program; Emergency Provider Emergency Medicine; PCP Internal Medicine; Visit Provider Physician Assistant | DX: K92.2 Gastrointestinal hemorrhage, unspecified (principal); F03.90 Unspecified dementia, unspecified severity, without behavioral disturbance, psychotic disturbance, mood disturbance, and anxiety; R46.89 Other symptoms and signs involving appearance and behavior | CPT/HCPCS: 99222; 99499 ==

== ENCOUNTER → 2024-11-14 03:27 | Outpatient (BNV) | payer MEDICARE, OTHER, SELFPAY | PROVIDERS: Admitting Provider Internal Medicine Gastroenterology; Emergency Provider Emergency Medicine; PCP Internal Medicine; Visit Provider Nurse Practitioner Family | DX: F03.918 Unspecified dementia, unspecified severity, with other behavioral disturbance (principal) | CPT/HCPCS: 99232 ==

== ENCOUNTER 2024-11-18 16:13 | Emergency (ER) | payer MEDICARE, OTHER, SELFPAY ==
[2024-11-18 16:31] VITALS: BP 142/61; BP 150/74; PULSE 77; PULSE 84; RESP 16; TEMP 36.6; O2SAT 95; O2SAT 98; BMI 31.8
--- NOTE | 2024-11-18 16:46 | ED.PSYCH ---
HPI - Psych General Chief Complaint: Behavioral Concerns Stated Complaint: agitated making threats Time Seen by Provider: 11/18/24 16:23 Source: patient and EMS Mode of arrival: EMS Limitations: altered mental status History of Present Illness ED Provider: osmar brito np HPI Narrative: Patient is an 89-year-old female with past medical history of recurrent UTIs, dementia, hyperlipidemia, hiatal hernia, DVT on Xarelto, hypertension, hypothyroidism who presents to the emergency department for evaluation she is coming from assisted living facility; [facility] via EMS after threatening staff and becoming agitated. She is calm and cooperative in the emergency department she offers no physical complaints to myself. She does not warrant to return to the assisted living facility. 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 She was seen during this time as well by Psychiatry, given her behavioral changes with dementia and typically occurring between 15:00 and early evening there was concern for sundowning, their recommendation was to continue sertraline and quetiapine but Seroquel to be given 2 hours earlier, had no behavioral issues while in the hospital. Review of medical records provided from assisted living facility there is to orders for Seroquel 50 mg tablets twice daily at 09:00 and 13:00 as well as 09:00 and 16:00, it is unclear exactly which order has been followed. Will have nursing staff attempt to contact facility for further clarification Related Data Home Medications ?Medication ?Instructions ?Recorded ?Confirmed Lactobacillus acidophilus 500 500 cell PO DAILY 11/13/24 11/13/24 million cell tablet ascorbic acid (vitamin C) 250 mg 250 mg PO DAILY 11/13/24 11/13/24 tablet (Vitamin C) aspirin 81 mg tablet,delayed 81 mg PO DAILY 11/13/24 11/15/24 release atorvastatin 40 mg tablet 40 mg PO DAILY 11/13/24 11/13/24 cephalexin 250 mg tablet 250 mg PO MOWEFR 11/13/24 11/14/24 cholecalciferol (vitamin D3) 50 50 mcg PO DAILY 11/13/24 11/13/24 mcg (2,000 unit) capsule (Vitamin D3) ferrous gluconate 324 mg (36 mg 324 mg PO DAILY 11/13/24 11/13/24 iron) tablet hydrochlorothiazide 12.5 mg tablet 12.5 mg PO DAILY 11/13/24 11/13/24 levothyroxine 50 mcg tablet 50 mcg PO DAILY 11/13/24 11/13/24 lisinopril 10 mg tablet 10 mg PO DAILY 11/13/24 11/13/24 sertraline 50 mg tablet 50 mg PO DAILY 11/13/24 11/13/24 magnesium hydroxide 400 mg/5 mL 2,400 mg PO DAILY PRN Constipation 11/14/24 11/14/24 oral suspension (Milk of Magnesia) melatonin 3 mg tablet 6 mg PO BEDTIME 11/14/24 11/14/24 rivaroxaban 20 mg tablet (Xarelto) 20 mg PO DAILY 11/14/24 11/15/24 Held on 11/17/24. Instructions: Resume on 11/23/24. sennosides 8.6 mg tablet (senna) 8.6 mg PO BID PRN Constipation 11/14/24 11/14/24 Previous Rx's ?Medication ?Instructions ?Recorded omeprazole 20 mg capsule,delayed 20 mg PO BID #60 caps 11/17/24 release quetiapine 50 mg tablet 50 mg PO BID@0700,1400 #30 tabs 11/17/24 Allergies Allergy/AdvReac Type Severity Reaction Status Date / Time No Known Allergies Allergy Verified 11/18/24 16:35 Review of Systems Review of Systems: Yes all other systems are reviewed and are negative PMFSH Past Medical History Attestation statement: The following information was validated with the patient. Source: old records reviewed Medical History Hiatal hernia History of DVT (deep vein thrombosis) HTN (hypertension) Hypothyroid Recurrent UTI HLD (hyperlipidemia) Aggressive behavior Dementia Surgical History History of ankle surgery H/O colonoscopy Social History Social History Household Members: None Housing: Care Home Housing Other:: [place] [facility] Are you a primary home care coordinator to a significant other at home: No Do you presently have visiting nurse or other home services: Yes Alcohol intake: former Patient Tobacco Use Status: Former Tobacco user Tobacco use type: Cigarette Smoked in Last 30 Days: No e-Cigarette/Vaping Use: Former Use Use of substances other than those prescribed or required for medical reasons: No Advance Directives: Yes Advance Directives on File: Yes Advance Directives Date on File: 04/19/24 service: No Physical Exam Exam: Exam: Appearance: Alert.?Oriented to person, place and time. No acute distress.?Normal affect. CVS: Heart sounds normal. Normal heart rate and rhythm.? Pulses normal.?? Respiratory: No respiratory distress.? Lung sounds clear to auscultation bilaterally??? Skin: Skin warm and dry.? Normal skin color.?? Extremities: No lower extremity edema.? Neuro: Moves all extremities spontaneously. Sensation intact bilaterally. CN II-XII intact. No focal neuro deficits. Ambulates with normal steady gait. Vital Signs: Vital Signs: Last Vital Signs Temp 97.6 F 11/19/24 12:04 Pulse 76 11/19/24 12:04 Resp 16 11/19/24 12:04 BP 154/46 H 11/19/24 12:04 Pulse Ox 94 11/19/24 12:04 O2 Del Method Room Air 11/19/24 12:04 BMI result Body Mass Index 31.8 Course Reevaluation(s) Reevaluation #1: Patient signed out to oncoming provider; Debra Angel, pending urinalysis, case management evaluation, placed in physician observation at this time for safe disposition planning Time: 17:55 Reevaluation #2: 10:36 PM 11/18/2024 (Debra ALANIZ): Patient was signed out to this provider at shift change, in summary the patient is a an 89-year-old female who was recently discharged from this facility after suffering from a GI bleed and exacerbation of dementia, who presents to the ED for evaluation of increased agitation at her current assisted living facility. There is question if patient and facility have been compliant with recommendations for earlier administration of her dementia medications. Patient's workup in the ED is reassuring however urinalysis is pending at time of sign-out. The patient's urinalysis has now resulted and shows no evidence of UTI. Per care plan advised at sign-out, the patient will be held in the ED overnight for case management consultation regarding medications and current residence as patient states she does not wish to return to the current assisted living facility. Of note the patient is currently becoming slightly more agitated, patient will be treated with her nighttime dosing of Seroquel and trazodone. 11/19/2024 0916 Bianka Humphrey PA-C ---> Observation continues. Case management continues to follow. Time: 11:52 Date: 11/19/24 Provider: CORBIN Saab Physician observation ended at 11:52. Patient will return to [facility] at [facility] via BLS at 12pm today. Medications Administered Discontinued Medications Generic Name Dose Route Start Last Admin Trade Name Freq PRN Reason Stop Dose Admin Quetiapine Fumarate 50 mg 11/18/24 22:42 11/18/24 22:48 Quetiapine Fumarate 50 Mg Tablet PO 11/18/24 22:43 50 mg ONCE ONE Administration Trazodone HCl 50 mg 11/18/24 22:42 11/18/24 22:48 Trazodone Hcl 50 Mg Tablet PO 11/18/24 22:43 50 mg ONCE ONE Administration Medical Decision Making Medical Decision Making [facility] Narrative: Patient is an 89-year-old female with past medical history of recurrent UTIs, dementia, hyperlipidemia, hiatal hernia, DVT on Xarelto, hypertension, hypothyroidism who presents emergency department coming from assisted living facility for agitation and threatening staff at the facility as per HPI. During her recent hospitalization there was recommendation to make medication administration time adjustments of her Seroquel. It is unclear whether this has been followed at the facility as per HPI. Nursing staff contact the facility for further clarification. Patient is requesting not to return to assisted living facility, will plan to have involvement with the patient's son as well as case management for disposition planning Differential Diagnosis Differential Diagnoses: The differential diagnosis associated with the presentation includes (UTI, sundowning, dementia, metabolic encephalopathy) Admission/Observation Consideration of admission/observation: Escalation of care including admission/observation considered Lab Data [facility] Lab Attestation statement: I reviewed the patient's lab results. No leukocytosis, mild normocytic anemia that does not meet transfusion criteria, no thrombocytopenia. No significant electrolyte derangement. LFTs unremarkable. 11/18/24 17:36 11/18/24 17:36 Labs: Lab Results 11/18/24 11/18/24 Range/Units 17:36 21:25 WBC 6.1 (4.8-10.8) X10*3/uL RBC 3.69 L (4.20-5.50) X10*6/uL Hgb 10.5 L (12.0-16.0) g/dl Hct 33.2 L (37.0-47.0) % MCV 90.0 (80.0-98.0) fL MCH 28.5 (27.0-33.0) pg MCHC 31.6 (31.0-35.0) g/dl RDW 13.9 (11.0-16.0) % Plt Count 167 (160-400) X10*3/uL MPV 11.6 (9.4-12.3) fL Immature Gran % (Auto) 0.2 (0.0-0.4) % Neut % (Auto) 69.4 (45-73) % Lymph % (Auto) 20.2 (20-40) % Sunflower % (Auto) 5.7 (2-11) % Eos % (Auto) 3.8 (0-4) % Baso % (Auto) 0.7 (0-2) % Lymph # (Auto) 1.2 (1.2-4.9) X10*3/uL Sunflower # (Auto) 0.4 (0.1-1.2) X10*3/uL Eos # (Auto) 0.2 (0.0-0.4) X10*3/uL Baso # (Auto) 0.0 (0.0-0.2) X10*3/uL Abs Immat Gran (auto) 0.01 (0.00-0.03) X10*3/uL Absolute Neuts (auto) 4.2 (2.0-8.3) x10*3/uL Absolute Nucleated RBC 0.000 (0.0-0.012) X10*3/uL Nucleated RBC % (auto) 0.0 (0.0-0.2) /100WBC Sodium 141 (135-145) mmol/L Potassium 4.5 (3.3-5.1) mmol/L Chloride 110 H (96-108) mmol/L Carbon Dioxide 23 (22-29) mmol/L Anion Gap 13 (12-20) BUN 21 H (9-16) mg/dL Creatinine 1.31 (0.5-1.4) mg/dL Estim Creat Clear Calc 26.6 Estimated GFR 38 Random Glucose 95 (60-115) mg/dL Calcium 9.2 (8.4-10.2) mg/dL Total Bilirubin 0.3 (0.0-1.0) mg/dL AST 12 (5-31) U/L ALT 10 (0-31) U/L Alkaline Phosphatase 79 (39-117) U/L Total Protein 6.4 L (6.5-8.0) g/dL Albumin 3.5 (3.5-5.0) g/dL Urine Color Yellow Urine Appearance Clear Urine pH 5.5 (5.0-9.0) Ur Specific [place] 1.010 (1.005-1.025) Urine Protein Negative (Neg-Trace) mg/dL Urine Glucose (UA) Negative (Negative) mg/dL Urine Ketones Negative (Negative) mg/dL Urine Blood Negative (Negative) Urine Nitrite Negative (Negative) Ur Leukocyte Esterase Trace H (Negative) Urine RBC 0-2 (0-2) /HPF Urine WBC 0-5 (0-5) /HPF Ur Squamous Epith Cells 0-2 (0-2) /HPF Urine Bacteria None Seen (None Seen) Hyaline Casts 0-2 (0-2) /LPF Independent Historian Clinical information obtained from an independent historian. History obtained from or confirmed by: EMS External Record Review External record reviewed: Inpatient record and Outpatient record Chronic Conditions Patient?s care impacted by: Other (See narrative above) Discharge Plan Discharge Clinical Impression: Agitation Patient Disposition: Xfer LTC Transfer Details: [facility] at [facility] [place] Instructions: Dementia (ED) Additional Instructions: Lashaun was seen in the emergency department, overall workup is reassuring. Please continue all at-home medications as prescribed. If any new or worsening symptoms occur including but not limited to severe chest pain or shortness for breath, or changes in behavior, please seek emergent care. Prescriptions: No Action atorvastatin 40 mg tablet 40 mg PO DAILY cephalexin 250 mg tablet 250 mg PO MOWEFR Rx Instructions: take one tablet mon, thu, thursday aspirin 81 mg tablet,delayed release (DR/EC) 81 mg PO DAILY levothyroxine 50 mcg tablet 50 mcg PO DAILY lisinopril 10 mg tablet 10 mg PO DAILY hydrochlorothiazide 12.5 mg tablet 12.5 mg PO DAILY Lactobacillus acidophilus 500 million cell Tablet 500 cell PO DAILY ferrous gluconate 324 mg (36 mg iron) Tablet 324 mg PO DAILY ascorbic acid (vitamin C) [Vitamin C] 250 mg Tablet 250 mg PO DAILY sertraline 50 mg tablet 50 mg PO DAILY cholecalciferol (vitamin D3) [Vitamin D3] 50 mcg (2,000 unit) Capsule 50 mcg PO DAILY sennosides [senna] 8.6 mg Tablet 8.6 mg PO BID PRN (Reason: Constipation) magnesium hydroxide [Milk of Magnesia] 400 mg/5 mL Suspension 2,400 mg PO DAILY PRN (Reason: Constipation) Xarelto 20 mg tablet 20 mg PO DAILY melatonin 3 mg Tablet 6 mg PO BEDTIME omeprazole 20 mg capsule,delayed release(DR/EC) 20 mg PO BID Qty: 60 0RF quetiapine 50 mg tablet 50 mg PO BID@0700,1400 Qty: 30 0RF Rx Instructions: at 7 am and 2 pm Interventions: ED Discharge Assessment Last Done: 11/19/24 12:04 Discharge Date/Time: 11/19/24 12:05 Print Language: Malay
--- OUTSIDE RECORDS SUMMARY | 2024-11-18 17:26 | XMS_ITS | Data Portability ---
Author Organization [place] - [facility], [facility] Address [address] [place] [address] Assessment Encounter Date Assessment Date Assessment LastModified [...] right ankle 3 v out of cast [email or web address] Not available 04/26/2024 12:49:17 05/17/2024 05/17/2024 SUBJECTIVE Chief Complaint Follow-up for right ankle fracture, status post-ORIF performed on April 10, 2024. History of Present Illness The patient, YESSENIA, is accompanied by a family member from her rehab facility. She reports minimal pain and is doing well. TM remains ubs-abxosg-xdudpqq on the affected extremity. OBJECTIVE Examination The patient's right ankle shows foot swelling. The calf is soft and non-tender. Medial and lateral incisions are well-healed with monofilament suture in place. Imaging X-rays ordered, obtained, and reviewed by me today at [facility] of the right ankle, three views, show [...] ankle X-ray. Date: 05/17/2024 Patient Name: YESSENIA [email or web address] Not available 05/17/2024 11:39:26 06/15/2024 06/15/2024 SUBJECTIVE [...] obtained, and reviewed by me today at [facility]: Right ankle, three views, show malleolar fixation intact, fracture lines through the medial and lateral malleolus resolving, ankle joint spaces maintained. ASSESSMENT Right ankle fracture healing. PLAN Discontinue cast. Allow weight-bearing as tolerated with the goal of resuming ambulation. Recheck in three months. [email or web address] Not available 06/15/2024 12:09:52 09/13/2024 09/13/2024 SUBJECTIVE: [...] obtained and reviewed by me today at [facility] Right ankle three views show the ankle joints appropriately positioned. The lateral, medial and posterior malleoli fracture alignment maintained with signs of healing. Fracture lines blurred fibular and medial malleolar implants in place. ASSESSMENT: Right ankle fracture trimaleolar status post ORIF with routine healing and good recovery to date. PLAN: Further follow up on an as needed basis. No restrictions outlined. [email or web address] Not available 09/13/2024 12:11:09 Plan of Treatment Reminders Order Date Submit Date Provider Last Modified By Organization Details Last Modified Time Details Appointments None recorded. Lab None recorded. Referral None recorded. Procedures None recorded. Surgeries None recorded. Imaging XR, ankle, 3 or more view - 315 rt ankle 3v recheck 025 025 [facility], [address], [place], [address], 5 12:58:04 XR, ankle, 3 or more view - 314 3v rt ankle global cast off first 025 025 [facility]stam[facility], [address], [place], [address], 5 06:52:27 XR, ankle, 3 or more view - 314- right ankle 3v global cast off first 025 025 [email or web address] 4 [facility], [address], [place], [address], 5 12:03:07 XR, ankle, 3 or more view - 314 rt ankle 3v global 024 024 [email or web address] 0 [facility], [address], [place], [address], 4 16:14:13 Medication Orders None recorded. Patient TargetsNo targets recorded. Patient Instructions Encounter Date Encounter Id Patient Instructions Last Modified By Organization Details Last Modified Time 04/26/[id number] application of cast, short leg cast* - 314 SLC NWB NEUTRAL, pt very stiff unable to get to neutral [email or web address] Not available 05/03/2024 16:14:13 05/17/[id number] cast removal* - 314 cast off and xr [email or web address] Not available 05/17/2024 12:03:07 application of cast, short leg cast* - 314 SLC neutral WB [email or web address] Not available 05/17/2024 12:14:11 06/15/[id number] cast removal* - 314 rt ankle cast off and xr, global Not available 06/15/2024 13:05:35 Reason for Referral None Reported. Results Created Date Observation Date Name Description Value Unit Range Abnormal Flag Note LastModifiedBy Organization Detail LastModifiedTime 04/26/20 24 04/26/2024 XR, ankle , 3 or more view [email or web address]:/ [email or web address] ?Encry pted=s hAaTro YD8dLq bEUv6g %2BXZw aYqtaq 0bqfl% 2Fg9IQ a4ajBk vP9nXo QUaueC m3YtLR FvZl [place] [address] 6i6586 AC0Kqb nuBUqW kKiQtr MwF INTERFACE [facility] [address], [place], [address], 04/26/2024 10:34:44 04/26/20 24 04/26/2024 XR, ankle , 3 or more view [email or web address]:/ [email or web address] ?Encry pted=s hAaTro YD8dLq bEUv6g %2BXZw aYqtaq 0bqfl% 2Fg9IQ a4ajBk vP9nXo QUaueC m3YtLR [facility] [place] [address] 2f8101 AC0Kqb nuBUqW kKiQtr MwF INTERFACE [facility] [address], [place], [address], 04/26/2024 10:34:46 05/17/19 25 05/17/2024 XR, ankle , 3 or more view [email or web address]:/ [email or web address] ?Encry pted=s hAaTro YD8dLq bEUv6g %2BXZw aYqtaq 0bqfl% 2Fg9IQ a4ajBk vP9nXo QUaueC m3YtLR Zl JJ8mAn HZtai3 8i7562 AC0Kqb 3mFUaW vKiQtr MwF INTERFACE [facility] [address] [facility] [address], [place], [address], 05/17/2024 10:58:19 05/17/19 25 05/17/2024 XR, ankle , 3 or more view [email or web address] ?Encry pted=s hAaTro YD8dLq bEUv6g %2BXZw aYqtaq 0bqfl% 2Fg9IQ a4ajBk vP9nXo QUaueC m3YtLR FvZlgJ JJ8mAn HZtai3 4b7087 AC0Kqb 3mFUaW vKiQtr MwF INTERFACE [facility] [address] [facility] [address], [place], [address], 05/17/2024 10:58:21 06/15/19 25 06/15/2024 XR, ankle , 3 or more view [email or web address] ?Encry pted=s hAaTro YD8dLq bEUv6g %2BXZw aYqtaq 0bqfl% 2Fg9IQ a4ajBk vP9nXo QUaueC m3YtLR FvZlgJ JJ8mAn HZtai3 7a9522 AC0Kqb HqNWaO kKiQtr MwF INTERFACE [facility] [address] [facility] [address], [place], [address], 06/15/2024 10:36:12 06/15/19 25 06/15/2024 XR, ankle , 3 or more view [email or web address]:/ [email or web address] ?Encry pted=s hAaTro YD8dLq bEUv6g %2BXZw aYqtaq 0bqfl% 2Fg9IQ a4ajBk vP9nXo QUaueC m3YtLR FvZlgJ JJ8mAn HZtai3 0n4563 AC0Kqb HqNWaO kKiQtr MwF INTERFACE [facility] [address], [place], [address], 06/15/2024 10:36:15 09/14/19 25 09/13/2024 XR, ankle , 3 or more view [email or web address] ?Encry pted=s hAaTro YD8dLq bEUv6g %2BXZw aYqtaq 0bqfl% 2Fg9IQ a4ajBk vP9nXo QUaueC m3YtLR FvZlgJ [facility] HZtai3 6p3457 AC0Kla nSDVqK kKiQtr MwF INTERFACE [facility] [address], [place], [address], 09/13/2024 11:54:15 09/14/19 25 09/13/2024 XR, ankle , 3 or more view [email or web address]:/ [email or web address] ?Encry pted=s hAaTro YD8dLq bEUv6g %2BXZw aYqtaq 0bqfl% 2Fg9IQ a4ajBk vP9nXo QUaueC m3YtLR FvZlJ [address]ta[address] 5u[address] AC0Kla nSDVqK kKiQtr MwF INTERFACE [facility] [address] [place] [address], [place], [address], 09/13/2024 11:54:16 09/14/19 25 09/13/2024 XR, ankle , 3 or more view [email or web address]:/ [email or web address] ?Encry pted=s hAaTro YD8dLq bEUv6g %2BXZw aYqtaq 0bqfl% 2Fg9IQ a4ajBk vP9nXo QUaueC m3YtLR FvZlgJ JJ8mAn HZtai3 6i4882 AC0Kla nSDVqK kKiQtr MwF INTERFACE [facility] [address], [place], [address], 09/13/2024 12:02:41 09/14/19 25 09/13/2024 XR, ankle , 3 or more view [email or web address]:/ [email or web address] ?Encry pted=s hALianeto YD8dLq bEUv6g %2BXZw aYqtaq 0bqfl% 2Fg9IQ a4ajBk vP9nXo QUaueC m3YtLR FvZlgJ JJ8mAn HZtai3 6o0587 AC0Kla nSDVqK kKiQtr MwF INTERFACE [facility] [address] [facility] [address] [facility] [address], [place], [address], 09/13/2024 12:02:43 Result Notes Documentation Provider Name and Address Organization Details Recorded Time Xr, Ankle, 3 Or More View : [email or web address] Encrypted=pnXgJhwLR8iZolP Uv6g%5XEAijLuivi1txkd%2Fg 4YZo8ajGbuJ9oIyPMnvoJo8Hi ORLoBtpMDV4vBwIFxpz71w853 7QU5HxvwiGVvIdEfCtlYpX Not Available [facility] 04/26/2024 10:34: 44 Xr, Ankle, 3 Or More View : [email or web address] Encrypted=icYtDjlWM6cAfjB Uv6g%7ZHJfgKotvg0coop%2Fg 9OZb7vgZysE9xGmWVntuPd5Na HSNgQcjSHC8cXkHYlpx96r816 7PF6SpfsmBHdYpQkEhzMuB Not Available [facility] 04/26/2024 10:34: 47 Xr, Ankle, 3 Or More View : [email or web address] Encrypted=axZiZwwBQ9bDawQ Uv6g%4GMAvnLatvb9fsqk%2Fg 7PMx2niNvlO4aLvJKifpZp4Yv SNIxWhgDDZ4uWaIVube03y716 2SP0Hoa4sVGnLoQpEavWwV Not Available [facility] 05/17/2024 10:58: 19 Xr, Ankle, 3 Or More View : [email or web address] Encrypted=ojRtKcsQK1bKvzY Uv6g%2QDNvgQihcj6inzf%2Fg 1ZTl9pqEapG3gNkUMlhaEk6Cp ETKrPxhBDB2yUkLQkho27x190 4ZI7Alw2sXRxFpWyLksRqQ Not Available [facility] 05/17/2024 10:58: 22 Xr, Ankle, 3 Or More View : [email or web address] Encrypted=joNzSgmTY9yKnyZ Uv6g%2XERgnMqzna1xtfh%2Fg 5JTe2vwWdzL9rUpTXtzuUe1Xj RPCjSbeXFM8wVsOIqmn41c325 5PJ1WkfIoLAwSgGiIzhZxJ Not Available [facility] 06/15/2024 10:36: 13 Xr, Ankle, 3 Or More View : [email or web address] Encrypted=ymPcAtwRI2dXjzU Uv6g%0BIJcnIwrux1ewdx%2Fg 3FDp7qhOwdO6aSrCSkqoDn4Bz YFLePceBZV1jDgYDumd25x954 7MN2PohWmXOwRcRkPcxNdB Not Available [facility] 06/15/2024 10:36: 15 Xr, Ankle, 3 Or More View : [email or web address] Encrypted=cpRhBspPT6vVzdW Uv6g%1XPLctKhjzy8sjpg%2Fg 5OLp4vfSwzJ9rNnEJcbrPw6Eq ADExJgiHJD4bWcEBjqi87v279 2CY0ZtrqKQQzMfBnQgkPhK Not Available [facility] 09/13/2024 11:54: 15 Xr, Ankle, 3 Or More View : [email or web address] Encrypted=xwAzNmmUY6pLgyI Uv6g%2WYJdvLhvat1kesi%2Fg 4YTh5xyGxwL5qXvPRxobIg2Kl ESNwTtjRYT7hBaFVejs40v858 6QL7GipbPSMyWfWhVqaIjN Not Available [facility] 09/13/2024 11:54: 17 Xr, Ankle, 3 Or More View : [email or web address] Encrypted=ucMhVedLJ7sZzhY Uv6g%7JVOfsCdysq0kint%2Fg 4HQk8drQktH7aTaFLphdTp7Zi DZBiGpjZVY3oJeDFodd12y963 4HM9RkkbISZfUkWzJquEvZ Not Available [facility] 09/13/2024 12:02: 42 Xr, Ankle, 3 Or More View : [email or web address] Encrypted=yrPuMxvJK4wOzuX Uv6g%4WRByySwdto8aytw%2Fg 9NUm9miCvuC0uIpEJaaqDx3Ud OMQmMteHBI1zWlWMmsf57m101 4UB2EbneZKSrYiHgQylSkA Not Available [facility] 09/13/2024 12:02: 43 Medical Equipment None Reported. [...] Details Last Updated DateTime 05/17/2024 152.4 cm [facility] 05/17/2024 10:33:53 Date Recorded Body height Provider Name an d Address Organization Details Last Updated DateTime 06/15/2024 152.4 cm [facility] 06/15/2024 10:18:57 Date Recorded Body height Provider Name an d Address Organization Details Last Updated DateTime 09/13/2024 152.4 cm [facility] 09/13/2024 11:47:37 Date Recorded Body height Provider Name an d Address Organization Details Last Updated DateTime 04/26/2024 152.4 cm [facility] 04/26/2024 10:22:14 Social History None recorded. Functional Status None recorded. Mental Status None recorded. Family History Nothing Reported. Medical History Condition Response Coronary Artery Disease N Anxiety/Depression N Emphysema N COPD N Pacemaker N Vascular Disease N Heart Trouble N Gastrointestinal Disease N Autoimmune disease N Inflammatory Joint disease N Orthotics N Arthritis N Blood Clot N Acid Reflux (GERD) N Cancer N Stroke N Circulation Problems N Rheumatoid Arthritis N Arrhythmia N Headaches N Fibromyalgia N Allergies/Hayfever N Breathing or lung disorders N Nerve Disorders N Thyroid Problems Y Kidney/Bladder Problems N Anemia N Heart Attack (GA) N Cholesterol Y Diabetes N Bleeding Disorder N Seizures/Epilepsy N AIDS/HIV N Congestive Heart Failure (CHF) N Asthma N Peripheral Vascular Disease N Sleep Apnea N Hepatitis N Heart Disease N Pulmonary Embolism N Hypertension Y Osteoporosis N Gynecological HistoryNo gynecological history recorded. Obstetrics History GPAL:G 0 P 0 0 0 0 Past Encounters Encounter ID Performer Location Encounter Start Date Encounter Closed Date Diagnosis/Indication Diagnosis SNOMED-CT Code Diagnosis ICD10 Code Diagnosis Note [id number] Cate [facility] MD [facility] [address] [place] [address] 04/26/2024 10:10:07 05/18/2024 16:28:27 Closed fracture of right ankle [id number] S82.891A [id number] [facility] [address] [address] [place] [address] 05/17/2024 10:20:39 05/17/2024 11:41:43 Closed fracture of right ankle [id number] S82.891A [id number] [facility] 3[facility] [address] [place] [address] 06/15/2024 10:09:23 07/05/2024 06:52:27 Closed fracture of right ankle [id number] S82.891A [id number] Cate Chen MD [facility] [address]rd [address] [place] [address] 09/13/2024 11:43:31 09/20/2024 12:58:04 Closed fracture of right ankle 5582277364 [id number] S82.891A Health Concerns Section Related Observation LastModified by Organization Detai ls LastModified Time None Recorded Concern Status LastModified by Organization Details LastModified Time None Recorded Advance Directives Directive None Recorded Payers Insurance Date Sequence Insurance Name Policy Number Policy Thomas Covered Member ID Thomas Member ID Guarantor Name 09/11/2024 1 [place]ICARE B-[place]: [facility] [employer] Lashaun Turpin [id number] Lashaun Turpin 09/20/2024 2 [facility] [id number] Lashaun Turpin [id number] Lashaun Turpin 06/06/2024 [facility] CORRECTION Lashaun Papi [id number] Lashaun Papi 09/11/2024 [facility]IC[facility]ME [facility] A) Lashaun Turpin [id number] Lashaun Papi OBGyn Episode No OBEpisode recorded.
--- OUTSIDE RECORDS SUMMARY | 2024-11-18 17:26 | XMS_ITS | Encounter Summary ---
Author Organization [employer] [facility] Address [address] [place] [address] Care Team Providers Care Site Specialist Name Role Phone Lauren Garcia MD Primary Care Provider + Encounter Details Date Type Department Care Team (Late st Contact Info) Description 05/13/2024 Lab Requisition [facility] - Main Lab [address] [facility] [place] [address] Lauren Garcia MD [address] [phone] Chronic kidney disease, unspecified; Essential (primary) hypertension [...] LAB CHEMISTRY METHOD 05/16/2024 1:28 PM EST [facility] Potassium 4.1 3.5 - 5.5 mmol/L LAB CHEMISTRY METHOD 05/16/2024 1:28 PM EST [facility] Chloride 109 96 - 110 mmol/L LAB CHEMISTRY METHOD 05/16/2024 1:28 PM EST [facility] CO2 25 21 - 32 mmol/L LAB CHEMISTRY METHOD 05/16/2024 1:28 PM [facility] Anion Gap 8 3 - 11 LAB CHEMISTRY METHOD 05/16/2024 1:28 PM [facility] Glucose 83 70 - 100 mg/dL LAB CHEMISTRY METHOD 05/16/2024 1:28 PM [facility] BUN 24 5 - 25 mg/dL LAB CHEMISTRY METHOD 05/16/2024 1:28 PM [facility] Creatinine 1.17(H) 0.50 - 1.10 mg/dL LAB CHEMISTRY METHOD 05/16/2024 1:28 PM [facility] eGFR 45(L) >=60 mL/min/1. 73m2 LAB CHEMISTRY METHOD 05/16/2024 1:28 PM [facility] Comment:Calculation based on the Chronic Kidney Disease Epidemiology Collaboration (CKD-EPI) equation refit without adjustment for race. BUN/Creatinine Ratio 20.5 LAB CHEMISTRY METHOD 05/16/2024 1:28 PM [facility] Calcium 9.8 8.5 - 10.5 mg/dL LAB CHEMISTRY METHOD 05/16/2024 1:28 PM [facility] Blood Venous blood specimen / Unknown Venipuncture / Unknown 05/16/2024 6:18 AM EST 05/16/2024 10:47 AM EST us Lauren Garcia MD LAB BLOOD ORDERABLES Fin al Result [facility] [address] [place] [address], * (ABNORMAL) Complete blood count (05/16/2024 6:18 AM EST) WBC 6.2 4.8 - 10.8 K/[facility] 05/16/2024 1:43 PM [facility] RBC 4.00 3.80 - 4.80 M/mcL LAB HEMETOLOGY METHOD 05/16/2024 1:43 PM [facility] Hemoglobin 10.0(L) 11.5 - 16.0 g/dL LAB HEMETOLOGY METHOD 05/16/2024 1:43 PM [facility] Hematocrit 34.6(L) 35.0 - 47.0 % LAB HEMETOLOGY METHOD 05/16/2024 1:43 PM [facility] MCV 87.6 79.0 - 98.0 FL LAB HEMETOLOGY METHOD 05/16/2024 1:43 PM [facility] MCH 25.3(L) 27.0 - 32.0 pcg LAB HEMETOLOGY METHOD 05/16/2024 1:43 PM [facility] MCHC 28.9(L) 32.0 - 37.0 g/dL LAB HEMETOLOGY METHOD 05/16/2024 1:43 PM [facility] RDW 14.5 11.0 - 15.0 % LAB HEMETOLOGY METHOD 05/16/2024 1:43 PM [facility] Platelets 212 130 - 400 K/mcL LAB HEMETOLOGY METHOD 05/16/2024 1:43 PM [facility] MPV 12.0(H) 7.0 - 11.0 FL LAB HEMETOLOGY METHOD 05/16/2024 1:43 PM [facility] NRBC 0.0 <1.0 % LAB HEMETOLOGY METHOD 05/16/2024 1:43 PM [facility] NRBC Absolute 0.00 <0.10 K/mcL LAB HEMETOLOGY METHOD 05/16/2024 1:43 PM [facility] Blood Venous blood specimen / Unknown Venipuncture / Unknown 05/16/2024 6:18 AM EST 05/16/2024 10:47 AM EST us Lauren Garcia MD LAB BLOOD ORDERABLES Fin al Result [facility] [address] [place] [address], documented in this encounter Visit Diagnoses Diagnosis Chronic kidney disease, unspecified Essential (primary) hypertension Unspecified essential hypertension documented in this encounter Additional Health Concerns 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
[2024-11-18 17:39] LABS: MANUAL DIFF FLAG NO
[2024-11-18 17:41] LABS: Hematocrit 33.2 % (37.0-47.0); Hemoglobin 10.5 g/dl (12.0-16.0); Imm Gran Abs Auto 0.01 X10*3/uL (0.00-0.03); Imm Gran Pct Auto 0.2 % (0.0-0.4); Lymphocytes Absolute Auto 1.2 X10*3/uL (1.2-4.9); Mean Corpuscular HGB Conc 31.6 g/dl (31.0-35.0); Mean Corpuscular Hemoglobin 28.5 pg (27.0-33.0); Mean Corpuscular Volume 90.0 fL (80.0-98.0); NRBC Abs Auto 0.000 X10*3/uL (0.0-0.012); NRBC Pct Auto 0.0 /100WBC (0.0-0.2); Platelet Count 167 X10*3/uL (160-400); Red Blood Count 3.69 X10*6/uL (4.20-5.50); White Blood Count 6.1 X10*3/uL (4.8-10.8)
[2024-11-18 17:53] LABS: Alanine Aminotransferase 10 U/L (0-31); Albumin Level 3.5 g/dL (3.5-5.0); Alkaline Phosphatase 79 U/L (39-117); Anion Gap 13 (12-20); Aspartate Amino Transferase 12 U/L (5-31); Blood Urea Nitrogen 21 mg/dL (9-16); Calcium 9.2 mg/dL (8.4-10.2); Carbon Dioxide 23 mmol/L (22-29); Chloride 110 mmol/L (96-108); Creatinine Clr Calc Pharmacy 26.6; Estimated Glomerular Filt Rate 38; Potassium 4.5 mmol/L (3.3-5.1); Sodium 141 mmol/L (135-145); Total Protein 6.4 g/dL (6.5-8.0)
[2024-11-18 18:29] VITALS: BP 181/79; PULSE 81; RESP 12; TEMP 36.6; O2SAT 97
--- NOTE | 2024-11-18 18:31 | MHC.EDTECH ---
assisted pt with bowel movement.
[2024-11-18 19:02] VITALS: BP 171/64; PULSE 75; RESP 16; TEMP 36.7; O2SAT 98
[2024-11-18 21:35] LABS: Appearance Urine Clear; Glucose Urine UA Negative (Negative); PH 5.5 (5.0-9.0); Specific Gravity - Urine 1.010 (1.005-1.025); UMIC TRIGGER UACC YES
--- NOTE | 2024-11-18 22:50 | PC.NURSE ---
This nurse made aware that is becoming increasingly agitated and is requesting to go home. Pt is confused and states she needs to go home to feed her animals. Multiple attempts to get out of bed. Requires multiple redirections. Provider made aware and pt medicated as per JUL.
[2024-11-18 23:32] VITALS: BP 143/61; PULSE 73; RESP 16; TEMP 36.8; O2SAT 95
[2024-11-19 01:55] VITALS: BP 167/66; PULSE 73; RESP 16; TEMP 36.6; O2SAT 96
[2024-11-19 04:33] VITALS: BP 148/52; PULSE 79; RESP 14; TEMP 36.6; O2SAT 98
[2024-11-19 06:24] VITALS: BP 154/46; PULSE 76; RESP 16; TEMP 36.4; O2SAT 94
--- NOTE | 2024-11-19 11:46 | MHC.CM.ED ---
Received case management consult overnight. Patient was at [facility] due to a GI bleed. Patient was d/c'd back to her assisted living facility at [facility] with Jenae PINA. Patient returned to the ER due to agitation. No issues while in the ER. T/W spoke with Cat at [facility]. Cat aware patient will return to facility. Attempted to speak with patient's son, Jaime, via telephone at [phone]. Spoke with Jaime's , patient's pcdayvco-qj-qxk Karen. Karen aware patient will return to [facility] via BLS at 12pm. Also aware [facility] made aware of ER visit. Patient, Sneha CHRIS and Aimee ALANIZ aware. Continue to monitor for d/c needs.
[2024-11-19 12:04] VITALS: BP 154/46; PULSE 76; RESP 16; TEMP 36.4; O2SAT 94
== END 2024-11-19 12:05 ==
PROVIDERS: Nurse Practitioner Family; Emergency Provider Emergency Medicine; PCP Internal Medicine
DX: R45.1 Restlessness and agitation (principal); F03.911 Unspecified dementia, unspecified severity, with agitation; I10 Essential (primary) hypertension; E78.5 Hyperlipidemia, unspecified; E03.9 Hypothyroidism, unspecified; Z86.718 Personal history of other venous thrombosis and embolism; Z79.82 Long term (current) use of aspirin; Z79.899 Other long term (current) drug therapy; Z79.01 Long term (current) use of anticoagulants
CPT/HCPCS: 36415; 80053; 81001; 85025; 99284

== ENCOUNTER 2024-12-12 12:39 | Emergency (ER) | payer MEDICARE, OTHER, SELFPAY ==
--- NOTE | 2024-12-12 12:45 | ED.GENADULT ---
HPI - General Adult General Chief complaint: Behavioral Concerns Stated complaint: ELOPED [facility] SNF,OUTBURSTS @SNF,FAM WANTS PSYCH EVAL Time Seen by Provider: 12/12/24 12:45 History of Present Illness ED Provider: Ry TILLMAN narrative: The patient is an 89-year-old woman who lives at the [facility] assisted living facility. She has been there since August of this year. She has a history of dementia. She also has a history of behavioral issues at the assisted living facility. The patient was hospitalized at this hospital last month. Initially there was a plan for her to be psychiatrically hospitalized but she then had a dark bowel movement and was hospitalized medically from November 14 through November 17. 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 She has been on rivaroxaban because of a DVT at that time. The patient had originally presented to the emergency room that day because of agitated and violent behavior at her assisted living facility. She was discharged from the hospital on November 17 but returned to the following day on November 18 because of agitation. She spent the night in the emergency room and was discharged back to the [facility] facility on November 19, I believe to the locked memory unit of the facility. She was then taken to the emergency room at [facility] on November 20 because of agitated behavior where she was evaluated and ultimately discharged back to her facility. Apparently the patient did not do well in the locked memory unit and so was changed back to the assisted living portion of the facility with additional 1-1 supervision hired by the family. Today the patient stated that she wanted to go out for a walk and insisted on leaving the facility despite the staff at the [facility]pc. When she was deterred from going outside she became aggressive with staff. Ultimately she was allowed to leave the facility with supervision while 911 was called. Paramedics therefore found the patient out on the street with staff. She was brought here for evaluation. I have spoken to the patient's daughter who was concerned that the patient continues to show aggressive behavior at the facility and the daughter is hoping the patient can be psychiatrically hospitalized for better medication management. The patient herself has no complaints. She denies headache, chest pain, abdominal pain, nausea, vomiting, shortness of breath, or any other symptoms. Related Data Home Medications ?Medication ?Instructions ?Recorded ?Confirmed ascorbic acid (vitamin C) 250 mg 250 mg PO DAILY 11/13/24 12/12/24 tablet (Vitamin C) aspirin 81 mg tablet,delayed 81 mg PO DAILY 11/13/24 12/12/24 release atorvastatin 40 mg tablet 40 mg PO BEDTIME 11/13/24 12/12/24 cholecalciferol (vitamin D3) 50 50 mcg PO DAILY 11/13/24 12/12/24 mcg (2,000 unit) capsule (Vitamin D3) hydrochlorothiazide 12.5 mg tablet 12.5 mg PO DAILY 11/13/24 12/12/24 levothyroxine 50 mcg tablet 50 mcg PO DAILY 11/13/24 12/12/24 lisinopril 10 mg tablet 15 mg PO DAILY 11/13/24 12/13/24 sertraline 50 mg tablet 75 mg PO DAILY 11/13/24 12/12/24 magnesium hydroxide 400 mg/5 mL 2,400 mg PO DAILY PRN Constipation 11/14/24 12/12/24 oral suspension (Milk of Magnesia) melatonin 3 mg tablet 6 mg PO BEDTIME 11/14/24 12/12/24 rivaroxaban 20 mg tablet (Xarelto) 20 mg PO DAILY 11/14/24 12/12/24 Held on 11/17/24. Instructions: Resume on 11/23/24. sennosides 8.6 mg tablet (senna) 8.6 mg PO BID PRN Constipation 11/14/24 12/12/24 ferrous gluconate 324 mg (38 mg 324 mg PO DAILY 12/13/24 12/13/24 iron) tablet quetiapine 50 mg tablet 50 mg PO TID@0700,1200,1600 12/13/24 12/13/24 trazodone 50 mg tablet 12.5 mg PO DAILY@1600 12/13/24 12/13/24 zinc oxide 13 % topical cream 1 appl topical BID 12/13/24 12/13/24 (Desitin Daily Defense) Previous Rx's ?Medication ?Instructions ?Recorded omeprazole 20 mg capsule,delayed 20 mg PO BID #60 caps 11/17/24 release quetiapine 50 mg tablet 50 mg PO BID@0700,1400 #30 tabs 11/17/24 Allergies Allergy/AdvReac Type Severity Reaction Status Date / Time No Known Allergies Allergy Verified 12/12/24 12:55 [facility] Past Medical History Medical History (Updated 12/22/24 @ 00:01 by rAtis Alexander) Dementia with agitation Aggressive behavior Hiatal hernia History of DVT (deep vein thrombosis) HTN (hypertension) Hypothyroid Recurrent UTI HLD (hyperlipidemia) Dementia Surgical History History of ankle surgery H/O colonoscopy Social History Social History Household Members: None Housing: [facility] Housing Other:: [facility] Are you a primary career center advisor to a significant other at home: No Do you presently have visiting nurse or other home services: Yes Alcohol intake: former Patient Tobacco Use Status: Former Tobacco user Tobacco use type: Cigarette e-Cigarette/Vaping Use: Former Use Advance Directives Date on File: 04/19/24 service: No Physical Exam ED Vital Signs: Vital Signs - 24 hr 12/20/24 21:42 12/21/24 08:00 12/21/24 11:16 Temperature 97.1 F 98.3 F 98.3 F Pulse Rate 78 70 70 Respiratory Rate 16 16 16 Blood Pressure 123/53 L 146/76 H 146/76 H Pulse Oximetry 93 92 92 Oxygen Delivery Method Room Air Room Air Room Air BMI result Body Mass Index 32.2 Const Other: The patient is an older woman who was awake and alert, calm and cooperative. She does not appear acutely ill. HENMT Other: The face is symmetrical. ?Mucous membranes moist. Eyes General: appearance normal, both eyes and all related structures Neck Neck: Yes normal visual inspection, Yes full ROM and Yes no JVD Resp Effort & Inspection: normal respiratory effort Auscultation: clear to auscultation bilaterally Cardio Rate: regular rate Rhythm: regular rhythm Heart sounds: S1 normal heart sound present and S2 normal heart sound present GI Other: Abdomen is soft and nontender Skin Other: The patient has some mild chronic venous stasis changes to the lower legs. Edema is present. Neuro Other: The patient is awake and alert. Cranial nerves 2 through 12 are grossly intact. She moves her extremities symmetrically. She seems steady on her feet. She seems neurologically intact although she has some degree of dementia. Extrem Other: 2+ pitting edema to both lower legs Course Course Course Narrative: Time: 10:28 Date: 12/13/24 Provider: Xenia Reyes, DO Patient in physician observation for case management/psych needs. No acute events reported overnight.? No current issues or complaints. VS stable. Psychiatry added on additionl meds. will order TSH, will continue to monitor. Reevaluation(s) Reevaluation #1: aggressive with RN hit RN IM medications ordered. 533pm IPBS for juana psych Reevaluation #2: Time: 08:24 Date: 12/15/24 Provider: CORBIN Ramos Patient in physician observation for inpatient geriatric bed search. Required IM zyprexa overnight due to aggressive behaviors, hitting staff. Calm this morning. VS stable. Patient is awaiting bed placement. Will continue to monitor. Attempted to call patient's HCR/son to discuss goals of care/MOLST however there was no answer. currently has no MOLST on file. will put in FULL CODE for now until this can be discussed with family. 14:00 - sat with the patient and her son Jaime who is her HCR. we discussed goals of care and MOLST paperwork. they wish to discuss with all of the children before making any decisions, would like to keep FULL CODE for now. Reevaluation #3: Physician observation continued. Uneventful night. Vital signs stable. No complaints from nursing overnight. Med reconciliation reviewed and done. Pending disposition. Will continue to monitor. 12/17/2024 0900 Bianka Humphrey PA-C --> Observation continues. Patient remains inpatient level of psychiatric care bed search. 12/18/2024 0923 Bianka Humphrey PA-C --> Observation continues. Patient remains inpatient level of psychiatric care bed search. 9:34 AM 12/19/2024 (Aimee Madera PA-C): Physician observation continued. Patient still as a inpatient older adult bed search. We will continue to monitor pending disposition. 958 pm I Yusra Lezama PA-C am carrying for the case management/overflow patient's. I am getting message from nursing, the patient has become hypotensive, she has an oral temperature of 96?. However she is not tachycardic. Repeat screening labs were ordered, she has a very slight drop in her H&H, her BUN is elevated, she is developing an GISSELL, I am ordering a guaiac, we need a rectal temp, apparently she is refusing. 1052pm The patient is refusing a rectal temp, she is refusing a guaiac, she is actively cursing at myself and nursing staff. I have attempted to explain to her my concerns, she still refuses. I am going to reach out to her son who is the healthcare proxy, Jaime Turpin, no answer, left a message.... The plan is to obtain a guaiac when the patient has a bowel movement, her pressures are stable, she allowed for an IV for IV fluids, we will repeat her BMP after treatment 321 am Cr 1.57, giving an additional 500 ml bolus, she will require repeat labs today 12/21/2024 1050 Bianka Humphrey PA-C ----> Patient cleared for discharge back to her facility. Observation ended at 1050 on 12/21/2024, does not meet admission criteria. Additional Reevaluation(s): Patient's urine culture showed [id number] mixed bacterial daniel characteristic of contamination. The patient is currently on cephalexin as a UTI could explain her delirium. No change to treatment plan Medications Administered Discontinued Medications Generic Name Dose Route Start Last Admin Trade Name Freq PRN Reason Stop Dose Admin Ascorbic Acid 250 mg 12/13/24 09:00 12/21/24 08:09 Ascorbic Acid 250 Mg Tablet PO 250 mg DAILY NESS Administration Aspirin 81 mg 12/13/24 09:00 12/21/24 08:09 Aspirin Enteric Coated 81 Mg Tablet. PO 81 mg DAILY NESS Administration Atorvastatin Calcium 40 mg 12/12/24 21:00 12/20/24 20:22 Atorvastatin Calcium 40 Mg Tablet PO 40 mg BEDTIME NESS Administration Cephalexin HCl 500 mg 12/12/24 21:00 12/21/24 08:09 Cephalexin 500 Mg Capsule PO 500 mg BID NESS Administration Ferrous Sulfate 324 mg 12/13/24 09:00 12/21/24 08:08 Ferrous Sulfate 324 Mg Tablet. PO 324 mg DAILY NESS Administration Hydrochlorothiazide 12.5 mg 12/13/24 09:00 12/21/24 09:54 Hydrochlorothiazide 12.5 Mg Tablet PO 12.5 mg DAILY NESS Administration Protocol Sodium Chloride 1,000 mls @ 999 mls/hr 12/19/24 23:00 12/20/24 00:05 Ns IV 12/20/24 00:00 Infused .Q1H1M NESS Infusion Sodium Chloride 500 mls @ 500 mls/hr 12/20/24 03:30 12/20/24 04:37 Ns IV 12/20/24 04:29 Infused .Q1H NESS Infusion Levothyroxine Sodium 50 mcg 12/13/24 06:00 12/21/24 08:09 Levothyroxine Sodium 50 Mcg Tablet PO 50 mcg DAILY@0600 NESS Administration Lisinopril 10 mg 12/13/24 09:00 12/21/24 09:29 Lisinopril 10 Mg Tablet PO 10 mg DAILY NESS Administration Protocol Melatonin 6 mg 12/12/24 21:00 12/20/24 20:22 Melatonin 3 Mg Tablet PO 6 mg BEDTIME NESS Administration Midazolam HCl 2 mg 12/13/24 14:30 12/13/24 14:40 Midazolam Hcl 2 Mg/2 Ml Vial IM 12/13/24 14:31 2 mg ONCE ONE Administration Olanzapine 5 mg 12/13/24 14:30 12/13/24 14:40 Olanzapine 10 Mg Vial IM 12/13/24 14:31 5 mg STAT STA Administration Olanzapine 10 mg 12/14/24 19:47 12/14/24 20:02 Olanzapine 10 Mg Vial IM 12/14/24 19:48 10 mg ONCE ONE Administration Omeprazole 20 mg 12/13/24 06:30 12/21/24 08:10 Omeprazole 20 Mg Capsule.Dr PO 20 mg BID@0630,1630 NESS Administration Quetiapine Fumarate 25 mg 12/12/24 19:50 12/15/24 16:42 Quetiapine Fumarate 25 Mg Tablet PO 25 mg BID PRN Administration agitatios/severe anxiety Quetiapine Fumarate 50 mg 12/12/24 21:00 12/19/24 14:45 Quetiapine Fumarate 50 Mg Tablet PO 50 mg TID NESS Administration Quetiapine Fumarate 50 mg 12/19/24 12:00 12/21/24 08:09 Quetiapine Fumarate 50 Mg Tablet PO 50 mg TID@0700,1200,1600 NESS Administration Rivaroxaban 20 mg 12/13/24 17:00 12/20/24 17:02 Rivaroxaban 20 Mg Tablet PO 20 mg DAILY@1700 NESS Administration Sertraline HCl 75 mg 12/13/24 09:00 12/21/24 08:10 Sertraline Hcl 25 Mg Tablet PO 75 mg DAILY NESS Administration Trazodone HCl 12.5 mg 12/19/24 16:00 12/20/24 17:01 Trazodone Hcl 50 Mg Tablet PO 12.5 mg DAILY@1600 NESS Administration Vitamin D 50 mcg 12/13/24 09:00 12/21/24 08:09 Cholecalciferol (Vitamin D3) 25 Mcg Tablet PO 50 mcg DAILY NESS Administration Medical Decision Making Medical Decision Making [facility] Narrative: The patient is an 89-year-old woman with a history of dementia who comes to the emergency room after eloping from her assisted living facility. The patient has had behavioral problems related to her dementia. I spoke to a relative who seems to believe that the patient's aggressive behavior has been fairly typical over the last several weeks despite some new medications. The patient has been started on quetiapine recently. The patient's medical workup is largely unremarkable aside from an abnormal urinalysis that might represent a UTI. The patient denies urinary discomfort or other urinary symptoms. The patient will be started on cephalexin for a possible UTI. Additionally a care team consult and psychiatric consult has been ordered to see if the patient might require hospitalization for these behavioral events or whether some medication adjustments might be made. Additionally case management has been consulted in case there is difficulty returning her to her assisted living facility. The patient has been placed in physician observation for recommendations from psychiatry. the patient had initial evaluation by Psychiatry this evening. Additional quetiapine was added to the patient's regimen. additional recommendations to come. Case management was also consulted in case there is no recommendation for inpatient psychiatric hospitalization. Determining an appropriate facility for discharge may be difficult. Lab Data 12/19/24 21:10 12/20/24 01:46 Labs: Lab Results 12/12/24 12/12/24 12/12/24 Range/Units 13:37 13:38 18:07 WBC 5.4 (4.8-10.8) X10*3/uL RBC 3.72 L (4.20-5.50) X10*6/uL Hgb 10.3 L (12.0-16.0) g/dl Hct 33.8 L (37.0-47.0) % MCV 90.9 (80.0-98.0) fL MCH 27.7 (27.0-33.0) pg MCHC 30.5 L (31.0-35.0) g/dl RDW 13.9 (11.0-16.0) % Plt Count 177 (160-400) X10*3/uL MPV 11.2 (9.4-12.3) fL Immature Gran % (Auto) 0.2 (0.0-0.4) % Neut % (Auto) 74.0 H (45-73) % Lymph % (Auto) 17.3 L (20-40) % [place] % (Auto) 5.4 (2-11) % Eos % (Auto) 2.2 (0-4) % Baso % (Auto) 0.9 (0-2) % Lymph # (Auto) 0.9 L (1.2-4.9) X10*3/uL [place] # (Auto) 0.3 (0.1-1.2) X10*3/uL Eos # (Auto) 0.1 (0.0-0.4) X10*3/uL Baso # (Auto) 0.1 (0.0-0.2) X10*3/uL Abs Immat Gran (auto) 0.01 (0.00-0.03) X10*3/uL Absolute Neuts (auto) 4.0 (2.0-8.3) x10*3/uL Absolute Nucleated RBC 0.000 (0.0-0.012) X10*3/uL Nucleated RBC % (auto) 0.0 (0.0-0.2) /100WBC Sodium 145 (135-145) mmol/L Potassium 4.9 (3.3-5.1) mmol/L Chloride 110 H (96-108) mmol/L Carbon Dioxide 29 (22-29) mmol/L Anion Gap 11 L (12-20) BUN 26 H (9-16) mg/dL Creatinine 1.31 (0.5-1.4) mg/dL Estim Creat Clear Calc 26.8 Estimated GFR 38 Random Glucose 101 (60-115) mg/dL Estimat Average Glucose mg/dL Hemoglobin A1c % (<6.0) % Calcium 9.7 (8.4-10.2) mg/dL Total Bilirubin 0.3 (0.0-1.0) mg/dL Direct Bilirubin 0.1 (0.0-0.5) mg/dL AST 17 (5-31) U/L ALT 10 (0-31) U/L Alkaline Phosphatase 66 (39-117) U/L C-Reactive Protein 0.16 (< or = 0.50) mg/dL Total Protein 6.4 L (6.5-8.0) g/dL Albumin 3.6 (3.5-5.0) g/dL TSH (0.32-4.0) uIU/mL Urine Color Yellow Urine Appearance Clear Urine pH 7.0 (5.0-9.0) Ur Specific [place] 1.015 (1.005-1.025) Urine Protein Negative (Neg-Trace) mg/dL Urine Glucose (UA) Negative (Negative) mg/dL Urine Ketones Negative (Negative) mg/dL Urine Blood Negative (Negative) Urine Nitrite Positive H (Negative) Ur Leukocyte Esterase Large (3+) H (Negative) Urine RBC 0-2 (0-2) /HPF Urine WBC 21-50 (0-5) /HPF Ur Squamous Epith Cells 0-2 (0-2) /HPF Urine Bacteria Trace (None Seen) Hyaline Casts 0-2 (0-2) /LPF Stool Occult Blood (NEGATIVE) Ethyl Alcohol 10 mg/dL Influenza Type A (PCR) NEGATIVE (Negative) Influenza Type B (PCR) NEGATIVE (Negative) RSV RNA Qual (PCR) NEGATIVE (Negative) SARS-CoV-2 RNA (RT-PCR) NEGATIVE (Negative) 12/13/24 12/19/24 12/20/24 Range/Units 18:10 21:10 01:46 WBC 5.4 (4.8-10.8) X10*3/uL RBC 3.47 L (4.20-5.50) X10*6/uL Hgb 9.9 L (12.0-16.0) g/dl Hct 31.2 L (37.0-47.0) % MCV 89.9 (80.0-98.0) fL MCH 28.5 (27.0-33.0) pg MCHC 31.7 (31.0-35.0) g/dl RDW 13.6 (11.0-16.0) % Plt Count 150 L (160-400) X10*3/uL MPV 11.4 (9.4-12.3) fL Immature Gran % (Auto) 0.4 (0.0-0.4) % Neut % (Auto) 59.7 (45-73) % Lymph % (Auto) 27.2 (20-40) % [place] % (Auto) 8.1 (2-11) % Eos % (Auto) 3.9 (0-4) % Baso % (Auto) 0.7 (0-2) % Lymph # (Auto) 1.5 (1.2-4.9) X10*3/uL [place] # (Auto) 0.4 (0.1-1.2) X10*3/uL Eos # (Auto) 0.2 (0.0-0.4) X10*3/uL Baso # (Auto) 0.0 (0.0-0.2) X10*3/uL Abs Immat Gran (auto) 0.02 (0.00-0.03) X10*3/uL Absolute Neuts (auto) 3.2 (2.0-8.3) x10*3/uL Absolute Nucleated RBC 0.000 (0.0-0.012) X10*3/uL Nucleated RBC % (auto) 0.0 (0.0-0.2) /100WBC Sodium 138 139 (135-145) mmol/L Potassium 4.4 4.2 (3.3-5.1) mmol/L Chloride 105 108 (96-108) mmol/L Carbon Dioxide 26 24 (22-29) mmol/L Anion Gap 11 L 11 L (12-20) BUN 44 H 42 H (9-16) mg/dL Creatinine 1.75 H 1.57 H (0.5-1.4) mg/dL Estim Creat Clear Calc 20.1 22.4 Estimated GFR 27 31 Random Glucose 112 92 (60-115) mg/dL Estimat Average Glucose 114 mg/dL Hemoglobin A1c % 5.6 (<6.0) % Calcium 9.0 D 8.7 (8.4-10.2) mg/dL Total Bilirubin 0.2 (0.0-1.0) mg/dL Direct Bilirubin (0.0-0.5) mg/dL AST 18 (5-31) U/L ALT 12 (0-31) U/L Alkaline Phosphatase 69 (39-117) U/L C-Reactive Protein (< or = 0.50) mg/dL Total Protein 5.8 L (6.5-8.0) g/dL Albumin 3.2 L (3.5-5.0) g/dL TSH 0.77 (0.32-4.0) uIU/mL Urine Color Urine Appearance Urine pH (5.0-9.0) Ur Specific [place] (1.005-1.025) Urine Protein (Neg-Trace) mg/dL Urine Glucose (UA) (Negative) mg/dL Urine Ketones (Negative) mg/dL Urine Blood (Negative) Urine Nitrite (Negative) Ur Leukocyte Esterase (Negative) Urine RBC (0-2) /HPF Urine WBC (0-5) /HPF Ur Squamous Epith Cells (0-2) /HPF Urine Bacteria (None Seen) Hyaline Casts (0-2) /LPF Stool Occult Blood (NEGATIVE) Ethyl Alcohol mg/dL Influenza Type A (PCR) (Negative) Influenza Type B (PCR) (Negative) RSV RNA Qual (PCR) (Negative) SARS-CoV-2 RNA (RT-PCR) (Negative) 12/20/24 Range/Units 20:15 WBC (4.8-10.8) X10*3/uL RBC (4.20-5.50) X10*6/uL Hgb (12.0-16.0) g/dl Hct (37.0-47.0) % MCV (80.0-98.0) fL MCH (27.0-33.0) pg MCHC (31.0-35.0) g/dl RDW (11.0-16.0) % Plt Count (160-400) X10*3/uL MPV (9.4-12.3) fL Immature Gran % (Auto) (0.0-0.4) % Neut % (Auto) (45-73) % Lymph % (Auto) (20-40) % [place] % (Auto) (2-11) % Eos % (Auto) (0-4) % Baso % (Auto) (0-2) % Lymph # (Auto) (1.2-4.9) X10*3/uL [place] # (Auto) (0.1-1.2) X10*3/uL Eos # (Auto) (0.0-0.4) X10*3/uL Baso # (Auto) (0.0-0.2) X10*3/uL Abs Immat Gran (auto) (0.00-0.03) X10*3/uL Absolute Neuts (auto) (2.0-8.3) x10*3/uL Absolute Nucleated RBC (0.0-0.012) X10*3/uL Nucleated RBC % (auto) (0.0-0.2) /100WBC Sodium (135-145) mmol/L Potassium (3.3-5.1) mmol/L Chloride (96-108) mmol/L Carbon Dioxide (22-29) mmol/L Anion Gap (12-20) BUN (9-16) mg/dL Creatinine (0.5-1.4) mg/dL Estim Creat Clear Calc Estimated GFR Random Glucose (60-115) mg/dL Estimat Average Glucose mg/dL Hemoglobin A1c % (<6.0) % Calcium (8.4-10.2) mg/dL Total Bilirubin (0.0-1.0) mg/dL Direct Bilirubin (0.0-0.5) mg/dL AST (5-31) U/L ALT (0-31) U/L Alkaline Phosphatase (39-117) U/L C-Reactive Protein (< or = 0.50) mg/dL Total Protein (6.5-8.0) g/dL Albumin (3.5-5.0) g/dL TSH (0.32-4.0) uIU/mL Urine Color Urine Appearance Urine pH (5.0-9.0) Ur Specific [place] (1.005-1.025) Urine Protein (Neg-Trace) mg/dL Urine Glucose (UA) (Negative) mg/dL Urine Ketones (Negative) mg/dL Urine Blood (Negative) Urine Nitrite (Negative) Ur Leukocyte Esterase (Negative) Urine RBC (0-2) /HPF Urine WBC (0-5) /HPF Ur Squamous Epith Cells (0-2) /HPF Urine Bacteria (None Seen) Hyaline Casts (0-2) /LPF Stool Occult Blood NEGATIVE (NEGATIVE) Ethyl Alcohol mg/dL Influenza Type A (PCR) (Negative) Influenza Type B (PCR) (Negative) RSV RNA Qual (PCR) (Negative) SARS-CoV-2 RNA (RT-PCR) (Negative) Discharge Plan Discharge Clinical Impression: Aggressive behavior, Dementia, Abnormal urinalysis, Recurrent UTI Patient Disposition: Xfer Other Transfer Details: BACK TO [facility] Additional Instructions: IF you are prescribed home medications and/or you are taking over the counter medications at home - it is very important you continue to do so as prescribed / directed unless told otherwise. Follow up with your primary care provider. Return to the emergency department immediately if your symptoms worsen or if you develop any numbness, tingling, dizziness, shortness of breath, difficulty breathing, chest pain, blurry vision, loss of vision, nausea, vomiting, abdominal pain, fever, chills, back pain, or any other complaints. Please see the information below about our Patient Portal. If you are not yet enrolled in the [facility] Patient Portal, you will receive an enrollment email invitation following your visit to any [facility] care setting. You may also self-enroll in the Patient Portal by visiting our website: [email or web address] The following information is required to access the Patient Portal: - Your [facility] Medical Record Number - Your personal home email address (must match what is in your electronic medical record, Registration staff can assist with this) - Name - Date of Capabilities of the Patient Portal: - Message some providers - View upcoming appointments - Access your health summary, medical history, and visit history - View current conditions and allergies - View procedure and lab results - View your medications, including guidelines, side effects, and precautions - Complete pre-appointment questionnaires requested by your provider - Ready summary reports of your office visits and procedures To access the Patient Portal Mobile Juliet, follow these directions: - Search SwingShot in the Juliet Store or Google Play Store - Download the Juliet - Search for [facility] - Enter your login/password Prescriptions: No Action atorvastatin 40 mg tablet 40 mg PO BEDTIME aspirin 81 mg tablet,delayed release (DR/EC) 81 mg PO DAILY levothyroxine 50 mcg tablet 50 mcg PO DAILY lisinopril 10 mg tablet 15 mg PO DAILY hydrochlorothiazide 12.5 mg tablet 12.5 mg PO DAILY ascorbic acid (vitamin C) [Vitamin C] 250 mg Tablet 250 mg PO DAILY sertraline 50 mg tablet 75 mg PO DAILY cholecalciferol (vitamin D3) [Vitamin D3] 50 mcg (2,000 unit) Capsule 50 mcg PO DAILY sennosides [senna] 8.6 mg Tablet 8.6 mg PO BID PRN (Reason: Constipation) magnesium hydroxide [Milk of Magnesia] 400 mg/5 mL Suspension 2,400 mg PO DAILY PRN (Reason: Constipation) Xarelto 20 mg tablet 20 mg PO DAILY melatonin 3 mg Tablet 6 mg PO BEDTIME omeprazole 20 mg capsule,delayed release(DR/EC) 20 mg PO BID Qty: 60 0RF quetiapine 50 mg tablet 50 mg PO BID@0700,1400 Qty: 30 0RF Rx Instructions: at 7 am and 2 pm trazodone 50 mg Tablet 12.5 mg PO DAILY@1600 quetiapine 50 mg tablet 50 mg PO TID@0700,1200,1600 Desitin Daily Defense 13 % Cream 1 appl TOPICAL BID ferrous gluconate 324 mg (38 mg iron) Tablet 324 mg PO DAILY Referrals: [facility] [Other] Elizabeth Urrutia MD [Physician, Medical] Interventions: ED Discharge Assessment Last Done: 12/21/24 11:16 Discharge Date/Time: 12/21/24 11:17 Print Language: Romanian
[2024-12-12 12:53] VITALS: BP 125/52; BP 130/80; PULSE 100; PULSE 94; RESP 16; TEMP 36.6; O2SAT 92; O2SAT 94; BMI 32.2
--- NOTE | 2024-12-12 12:57 | ECG_ITS ---
Test Reason : AMS Blood Pressure : */* mmHG Vent. Rate : 89 BPM Atrial Rate : 89 BPM P-R Int : 160 ms QRS Dur : 70 ms QT Int : 346 ms P-R-T Axes : 18 -7 5 degrees QTcB Int : 420 ms Normal sinus rhythm Cannot rule out Anterior infarct , age undetermined Abnormal ECG When compared with ECG of 13-Nov-2024 11:14, No significant change was found Referred By: Farhan Raza Electronically Signed By: Sloan Smith
--- OUTSIDE RECORDS SUMMARY | 2024-12-12 13:21 | XMS_ITS | Encounter Summary ---
Author Organization [employer] [facility] Address [address] [place] [address] Care Team Providers Care Dental Technology Advisor Name Role Phone Lauren Garcia MD Primary Care Provider + Encounter Details Date Type Department Care Team (Late st Contact Info) Description 05/13/2024 Lab Requisition [facility] - Main Lab [address] [facility] [place] [address] Lauren Garcia MD [address] [id number] Chronic kidney disease, unspecified; Essential (primary) hypertension [...] LAB CHEMISTRY METHOD 05/16/2024 1:28 PM EST [facility] Potassium 4.1 3.5 - 5.5 mmol/L LAB CHEMISTRY METHOD 05/16/2024 1:28 PM EST [facility] Chloride 109 96 - 110 mmol/L LAB CHEMISTRY METHOD 05/16/2024 1:28 PM EST [facility] CO2 25 21 - 32 mmol/L LAB CHEMISTRY METHOD 05/16/2024 1:28 PM [facility] Anion Gap 8 3 - 11 LAB CHEMISTRY METHOD 05/16/2024 1:28 PM [facility] Glucose 83 70 - 100 mg/dL LAB CHEMISTRY METHOD 05/16/2024 1:28 PM [facility] BUN 24 5 - 25 mg/dL LAB CHEMISTRY METHOD 05/16/2024 1:28 PM [facility] Creatinine 1.17(H) 0.50 - 1.10 mg/dL LAB CHEMISTRY METHOD 05/16/2024 1:28 PM [facility] eGFR 45(L) >=60 mL/min/1. 73m2 LAB CHEMISTRY METHOD 05/16/2024 1:28 PM [facility] Comment:Calculation based on the Chronic Kidney Disease Epidemiology Collaboration (CKD-EPI) equation refit without adjustment for race. BUN/Creatinine Ratio 20.5 LAB CHEMISTRY METHOD 05/16/2024 1:28 PM [facility] Calcium 9.8 8.5 - 10.5 mg/dL LAB CHEMISTRY METHOD 05/16/2024 1:28 PM [facility] Blood Venous blood specimen / Unknown Venipuncture / Unknown 05/16/2024 6:18 AM EST 05/16/2024 10:47 AM EST us Lauren Garcia MD LAB BLOOD ORDERABLES Fin al Result [facility] [address] [place] [address], * (ABNORMAL) Complete blood count (05/16/2024 6:18 AM EST) WBC 6.2 4.8 - 10.8 [facility] 05/16/2024 1:43 PM [facility] RBC 4.00 3.80 - 4.80 M/mcL LAB HEMETOLOGY METHOD 05/16/2024 1:43 PM [facility] Hemoglobin 10.0(L) 11.5 - 16.0 g/dL LAB HEMETOLOGY METHOD 05/16/2024 1:43 PM [facility] Hematocrit 34.6(L) 35.0 - 47.0 % LAB HEMETOLOGY METHOD 05/16/2024 1:43 PM [facility] MCV 87.6 79.0 - 98.0 FL LAB HEMETOLOGY METHOD 05/16/2024 1:43 PM [facility] MCH 25.3(L) 27.0 - 32.0 pcg LAB HEMETOLOGY METHOD 05/16/2024 1:43 PM [facility] MCHC 28.9(L) 32.0 - 37.0 g/dL LAB HEMETOLOGY METHOD 05/16/2024 1:43 PM [facility] RDW 14.5 11.0 - 15.0 % LAB HEMETOLOGY METHOD 05/16/2024 1:43 PM [facility] Platelets 212 130 - 400 K/mcL LAB HEMETOLOGY METHOD 05/16/2024 1:43 PM [facility] MPV 12.0(H) 7.0 - 11.0 FL LAB HEMETOLOGY METHOD 05/16/2024 1:43 PM [facility] NRBC 0.0 <1.0 % LAB HEMETOLOGY METHOD 05/16/2024 1:43 PM [facility] NRBC Absolute 0.00 <0.10 K/mcL LAB HEMETOLOGY METHOD 05/16/2024 1:43 PM [facility] Blood Venous blood specimen / Unknown Venipuncture / Unknown 05/16/2024 6:18 AM EST 05/16/2024 10:47 AM EST us Lauren Garcia MD LAB BLOOD ORDERABLES Fin al Result [facility] [address] [place] [address], documented in this encounter Visit Diagnoses Diagnosis Chronic kidney disease, unspecified Essential (primary) hypertension Unspecified essential hypertension documented in this encounter Additional Health Concerns Infection Onset Date Last 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
[2024-12-12 13:42] LABS: MANUAL DIFF FLAG NO
[2024-12-12 13:48] LABS: Hematocrit 33.8 % (37.0-47.0); Hemoglobin 10.3 g/dl (12.0-16.0); Imm Gran Abs Auto 0.01 X10*3/uL (0.00-0.03); Imm Gran Pct Auto 0.2 % (0.0-0.4); Lymphocytes Absolute Auto 0.9 X10*3/uL (1.2-4.9); Mean Corpuscular HGB Conc 30.5 g/dl (31.0-35.0); Mean Corpuscular Hemoglobin 27.7 pg (27.0-33.0); Mean Corpuscular Volume 90.9 fL (80.0-98.0); NRBC Abs Auto 0.000 X10*3/uL (0.0-0.012); NRBC Pct Auto 0.0 /100WBC (0.0-0.2); Platelet Count 177 X10*3/uL (160-400); Red Blood Count 3.72 X10*6/uL (4.20-5.50); White Blood Count 5.4 X10*3/uL (4.8-10.8)
[2024-12-12 14:04] LABS: Alanine Aminotransferase 10 U/L (0-31); Albumin Level 3.6 g/dL (3.5-5.0); Alkaline Phosphatase 66 U/L (39-117); Anion Gap 11 (12-20); Aspartate Amino Transferase 17 U/L (5-31); Blood Urea Nitrogen 26 mg/dL (9-16); Calcium 9.7 mg/dL (8.4-10.2); Carbon Dioxide 29 mmol/L (22-29); Chloride 110 mmol/L (96-108); Creatinine Clr Calc Pharmacy 26.8; Estimated Glomerular Filt Rate 38; Potassium 4.9 mmol/L (3.3-5.1); Sodium 145 mmol/L (135-145); Total Protein 6.4 g/dL (6.5-8.0)
[2024-12-12 14:24] LABS: Resp Syncy Virus RNA Qual PCR NEGATIVE (Negative); SARS COV2 PCR INHOUSE NEGATIVE (Negative)
--- NOTE | 2024-12-12 15:54 | PC.NURSE ---
Pt coming from [facility], initially pt pleasant and oriented. As shift continues pt increasingly agitated and exit seeking. Noted to dress self back in own clothes. Elopement band placed on pt. Seen by CARE team. Plan for psych consult for ?placement to [facility] and input on medications. Med rec completed by Celi CHRIS, ?Lisinopril dosing, will inform provider Dr Raza
[2024-12-12 16:10] VITALS: BP 151/66; PULSE 83; RESP 16; O2SAT 96
--- NOTE | 2024-12-12 16:49 | PC.NURSE ---
Patient transferred to Overflow 6. Denies Pain and SOB Denies SI HI Patient changed herself back into regular clothes in ED Patient changed back over in Overflow 6 Belongings at Bedside Patient remains Calm and cooperative
[2024-12-12 17:53] VITALS: BP 184/71; PULSE 85; RESP 16; TEMP 36.6; O2SAT 98
[2024-12-12 18:16] LABS: Appearance Urine Clear; Glucose Urine UA Negative (Negative); PH 7.0 (5.0-9.0); Specific Gravity - Urine 1.015 (1.005-1.025); UMIC TRIGGER UACC YES
[2024-12-12 18:28] LABS: UACC Culture Trigger YES
[2024-12-12 19:48] VITALS: BP 161/70; PULSE 73; RESP 16; TEMP 36.7; O2SAT 94
--- NOTE | 2024-12-12 20:14 | P.CNPS_ITS ---
History of Present Illness Date of Service: 12/12/24 Chief Complaint: ELOPED [facility] SNF,OUTBURSTS @SNF,FAM WANTS PSYCH EVAL Reason for Consult: increase aggressive behavior. Hx of dementia Requesting physician: Farhan Raza Discussed with referring provider: Yes Sources of Information: patient interviewed, chart reviewed and crisis/core team assessment reviewed HPI Narrative: The patient is an 89-year-old female who lives at the [facility] assisted living facility. Patient has been resided at this facility since August of this year. Patients a history of dementia. She also has a history of behavioral issues at the assisted living facility. Family pay extra to have 1-1 staff on non locked unit as she does not do well at [facility] unit. Patient has same aggressive behavior since started living at this facility. Meet with patient at 1935 in her room ED6 [place], Per patient, she was taking a walk with staff [place] near the facility and refused to return.The copier operator then called and brought her to the ED. Patient does not think she has any psychiatric dx included dementia. When asked anything or anyone one at the facility that triggered her or she does not like. She says Nothing wrong with them. They are nice people. I just do not want to be there . Patient states she has her own room there but still wants to be back home. Not sure if she has her own home prior. Past Psychiatric History: Report no prior psychiatric dx or admission. Denies depression or anxiety. Deferred to medical team Review of Systems Review of Systems Constitutional: Denies fatigue and Denies fever(s) Cardiovascular: Denies chest pain and Denies dyspnea Respiratory: Denies dyspnea Gastrointestinal: Denies abdominal pain Psychiatric: denies suicidal ideation Endocrine: Denies fatigue Mild pain in Right shoulder but minimum [facility] Medical History (Updated 12/12/24 @ 20:31 by Gaby Lu NP) Aggressive behavior Hiatal hernia History of DVT (deep vein thrombosis) HTN (hypertension) Hypothyroid Recurrent UTI HLD (hyperlipidemia) Dementia Surgical History History of ankle surgery H/O colonoscopy Family History: Patient lives in [facility] with unlocked unit Social History: not discuss Substance History: Not discuss Trauma History: Not discuss Diagnostics Vital Signs (24Hr): Vital Signs - 24 hr 12/12/24 12:53 12/12/24 16:10 12/12/24 17:53 Temperature 97.9 F 97.8 F Pulse Rate 94 83 85 Respiratory Rate 16 16 16 Blood Pressure 125/52 L 151/66 H 184/71 H Pulse Oximetry 92 96 98 Oxygen Delivery Method Room Air Room Air Room Air 12/12/24 19:48 Temperature 98.0 F Pulse Rate 73 Respiratory Rate 16 Blood Pressure 161/70 H Pulse Oximetry 94 Oxygen Delivery Method Room Air BMI result Body Mass Index 32.2 Labs 12/12/24 13:38 12/12/24 13:38 Labs: Laboratory Results - last 48 hr 12/12/24 12/12/24 12/12/24 13:37 13:38 18:07 WBC 5.4 RBC 3.72 L Hgb 10.3 L Hct 33.8 L MCV 90.9 MCH 27.7 MCHC 30.5 L RDW 13.9 Plt Count 177 MPV 11.2 Immature Gran % (Auto) 0.2 Neut % (Auto) 74.0 H Lymph % (Auto) 17.3 L [place] % (Auto) 5.4 Eos % (Auto) 2.2 Baso % (Auto) 0.9 Lymph # (Auto) 0.9 L [place] # (Auto) 0.3 Eos # (Auto) 0.1 Baso # (Auto) 0.1 Abs Immat Gran (auto) 0.01 Absolute Neuts (auto) 4.0 Absolute Nucleated RBC 0.000 Nucleated RBC % (auto) 0.0 Sodium 145 Potassium 4.9 Chloride 110 H Carbon Dioxide 29 Anion Gap 11 L BUN 26 H Creatinine 1.31 Estim Creat Clear Calc 26.8 Estimated GFR 38 Random Glucose 101 Calcium 9.7 Total Bilirubin 0.3 Direct Bilirubin 0.1 AST 17 ALT 10 Alkaline Phosphatase 66 C-Reactive Protein 0.16 Total Protein 6.4 L Albumin 3.6 Urine Color Yellow Urine Appearance Clear Urine pH 7.0 Ur Specific Rosalia 1.015 Urine Protein Negative Urine Glucose (UA) Negative Urine Ketones Negative Urine Blood Negative Urine Nitrite Positive H Ur Leukocyte Esterase Large (3+) H Urine RBC 0-2 Urine WBC 21-50 Ur Squamous Epith Cells 0-2 Urine Bacteria Trace Hyaline Casts 0-2 Ethyl Alcohol 10 Influenza Type A (PCR) NEGATIVE Influenza Type B (PCR) NEGATIVE RSV RNA Qual (PCR) NEGATIVE SARS-CoV-2 RNA (RT-PCR) NEGATIVE Mental Status Exam Mental Status Exam Narrative: She is aler and oriented x3, She knows her , she is aware that she is in the hospital and aware of situation that led to ED admission. She is not aware of dementia or sundown behaviors or aggressive behaviors. Mood is Ok . Denies anxiety or depression. Do not appear to be irritable or aggressive. Smile happily, calm, friendly, pleasant and cooperative. Thought process is WNL, thought content is WNL. No SI/SIB/HI/AVH. Some cognitive declines and forgetful but intact. Poor knowledge regarding medication. Do not appear to be psychotic. Poor ot fair insight of incident that brought her to the ED but poor insight of mental health declines Medications Medications Current Medications Ascorbic Acid (Ascorbic Acid 250 Mg Tablet) 250 mg PO DAILY [facility] Aspirin (Aspirin Enteric Coated 81 Mg Tablet.) 81 mg PO DAILY [facility] Atorvastatin Calcium (Atorvastatin Calcium 40 Mg Tablet) 40 mg PO BEDTIME [facility] Cephalexin HCl (Cephalexin 500 Mg Capsule) 500 mg PO BID [facility] Ferrous Sulfate (Ferrous Sulfate 324 Mg Tablet.) 324 mg PO DAILY [facility] Hydrochlorothiazide (Hydrochlorothiazide 12.5 Mg Tablet) 12.5 mg PO DAILY NESS; Protocol Levothyroxine Sodium (Levothyroxine Sodium 50 Mcg Tablet) 50 mcg PO DAILY@0600 [facility] Lisinopril (Lisinopril 10 Mg Tablet) 10 mg PO DAILY [facility]; Protocol Magnesium Hydroxide (Milk Of Magnesia 30 Ml Oral.Susp) 30 ml PO DAILY PRN PRN Reason: Constipation Melatonin (Melatonin 3 Mg Tablet) 6 mg PO BEDTIME [facility] Omeprazole (Omeprazole 20 Mg Capsule.) 20 mg PO BID@0630,1630 [facility] Quetiapine Fumarate (Quetiapine Fumarate 25 Mg Tablet) 25 mg PO BID PRN PRN Reason: agitatios/severe anxiety Quetiapine Fumarate (Quetiapine Fumarate 50 Mg Tablet) 50 mg PO TID [facility] Rivaroxaban (Rivaroxaban 20 Mg Tablet) 20 mg PO DAILY [facility] Senna (Sennosides 8.6 Mg Tablet) 8.6 mg PO BID PRN PRN Reason: Constipation Sertraline HCl (Sertraline Hcl 25 Mg Tablet) 75 mg PO DAILY [facility] Vitamin D (Cholecalciferol (Vitamin D3) 25 Mcg Tablet) 50 mcg PO DAILY [facility] Allergies Allergies Allergy/AdvReac Type Severity Reaction Status Date / Time No Known Allergies Allergy Verified 12/12/24 12:55 Assessment & Plan Assessment & Plan (1) Aggressive behavior: Status: Acute Code(s): R46.89 - Other symptoms and signs involving appearance and behavior Plan The patient is an 89-year-old female who lives at the [facility] assisted living facility. Patient has been resided at this facility since August of this year. Patients a history of dementia. She also has a history of behavioral issues at the assisted living facility. Family pay extra to have 1-1 staff on non locked unit as she [facility] not do well [facility]. Patient has same aggressive behavior since started living at this facility. Per patient, she was [place] walk [place] staff [place] the facility and refused to return.The copier operator then called and brought her to the ED. Patient does not think she has any psychiatric dx included dementia. When asked anything or anyone one at the facility that triggered her or she does not like. She says Nothing wrong with them. They are nice people. I just do not want to be there . Patient states she has her own room there but still wants to be back home. Not sure if she has her own home prior. Patient is calm, pleasant and cooperative, she appears to be happy. No aggressive or irritability during assessment. Poor information regarding medications, she has poor insight of sundown behavior. Reviewed medications that she is currently taking at home wiht some changes made by this provider. She is receptive to the plan, asking When I am leaving? > she is referred to the attending in the ED who made decision. Per the attending, patient appears not doing well at the facility eithe on locked or unlocked unit and not sure if Home that she is thinking about is exist. I will increased Seorquel up to 50mg PO BID to TID. Home dose probably is subtherapeutic. Add Seroquel 25mg PO BID PRN for severe anxiety/ agitation. Will order TSH and Free T4 to check thyroid functions. Continue to monitor for aggressive behavior. Continue with other meds per medical team. Total time managing care of this patient today ____ minutes. Patient educated on: diagnosis, medication risk/benefits and therapeutic strategies Informed Consent: understands
--- NOTE | 2024-12-12 21:39 | MHC.CM.ED ---
CM reviewed chart, CARE team and psych recommendations and spoke with provider. Pt with dementia. Lives a [facility]. Has been in locked and unlocked unit. Pt eloped from facility today. Pt has 1:1 STAFF at the facility, which is private pay. CARE team recommended psych consult. paper tube cutter BETTS saw patient. Did make medication recommendations. Increased seraquel and ordered thyroid studies. No mention of [facility] admission for med management. Due to lateness of hour, CM did not call family. Pt son Melvin Turpin ([phone]). CM will need to speak with him in the morning and discover if patient is to return to LONG TERM with new med recommendations. At this point, it does not seem that patient will be admitted to [facility]. ? if patient needs higher level of dementia care. ? if patient can return to facility. CM cannot verify concerns with LONG TERM at this time of night. (10 pm). CM following for safe discharge planning.
--- NOTE | 2024-12-13 04:40 | PC.NURSE ---
Patient pleasant, calm, cooperative with care. No acute behaviors or events tonight. Slept throughout the night. Safety measures in place.
[2024-12-13 05:36] VITALS: BP 155/75; PULSE 71; RESP 16; TEMP 36.5; O2SAT 97
--- NOTE | 2024-12-13 08:06 | PC.NURSE ---
Addendum entered by Luciana Cunningham RN 12/13/24 08:07: Patient is a 89 yo female who had originally presented to the emergency room that day because of agitated and violent behavior at her assisted living facility. She was discharged from the hospital on November 17 but returned to the following day on November 18 because of agitation. She spent the night in the emergency room and was discharged back to the [facility] facility on November 19. She was then taken to the emergency room at [facility] on November 20 because of agitated behavior where she was evaluated and ultimately discharged back to her facility. Apparently the patient did not do well in the locked memory unit and so was changed back to the assisted living portion of the facility with additional 1-1 supervision hired by the family. Today the patient stated that she wanted to go out for a walk and insisted on leaving the facility despite the staff at the residential. When she was deterred from going outside she became aggressive with staff. Ultimately she was allowed to leave the facility with supervision while 911 was called. Paramedics therefore found the patient out on the street with staff. patient's daughter who was concerned that the patient continues to show aggressive behavior at the facility and the daughter is hoping the patient can be psychiatrically hospitalized for better medication management. Patient is resting comfortably. Respirations even and non-labored. Abdomen soft, non-tender with positive bowel sounds. Positive pedal pulses with no edema. Original Note: Medical History Aggressive behavior Hiatal hernia History of DVT (deep vein thrombosis) HTN (hypertension) Hypothyroid Recurrent UTI HLD (hyperlipidemia) Rasheed
[2024-12-13] MEDS: Ferrous Sulfate 324 MG TABLET.DR PO (09:14)
[2024-12-13] MEDS: Aspirin Enteric Coated 81 MG TABLET.DR PO (09:14)
[2024-12-13 14:00] VITALS: BP 164/81; PULSE 74; RESP 18; TEMP 36.7; O2SAT 95
[2024-12-13] MEDS: OLANZapine 10 MG VIAL 5 MG IM (14:40)
--- NOTE | 2024-12-13 14:58 | PC.NURSE ---
patient bed alarm went off, this RN and JULIA Patel went to patient bedside, patient was out of bed and attempting to put personal clothes on. patient is currently [facility] bedsearch. patient informed that she can not leave at this time, patient became angry and started throwing shoes at this RN, JULIA called security for help. patient then grabbed this RN by the hands and tried biting. security at bedside, ED MD called for med order. patient placed back in bed and IM medication was admin per JUL. patient then got out of bed again, patient placed back in bed, moved closer to the nurses station, bed alarm on, bed locked in lowest position.
--- NOTE | 2024-12-13 15:10 | PC.NURSE ---
Patient standing at the side of the bed and refusing to follow directions. Security called and patient placed back into the bed at which time she was hitting, scratching, spiting and yelling obscentities at this staff. psychiatry aware.
--- NOTE | 2024-12-13 15:47 | PHA.MEDREC ---
Pharmacy Consult ? Medication Reconciliation Pharmacy has completed the medication reconciliation. Verified that pt is taking lisinopril 15 mg daily with [employer]
--- NOTE | 2024-12-13 16:20 | MHC.CARE ---
Spoke with associate school psychologist Lina Almanzar who is recommending geriatric [facility] for pt.
--- NOTE | 2024-12-13 17:08 | PM.PSYCN ---
History of Present Illness Date of Service: 12/13/2024 Chief Complaint: ELOPED FRO SNF,OUTBURSTS @SNF,FAM WANTS PSYCH EVAL Reason for Consult: Follow up agitation Requesting physician: Farhan Raza Sources of Information: patient interviewed and chart reviewed Additional Sources of Information: Talked with nursing team caring for pt. HPI Narrative: 89 yo female, resident of [facility] since August 2024 with longstanding symptoms of agitation requiring pt to have a one to one as she will not tolerate living on a locked unit in this facility. Pt to ER s/p elopement from the facility with reported outbursts and aggressive behaviors. Seen by Gaby Lu DNP on 12/12. Seroquel was increased to 50 mg tid and Seroquel 25 mg bid prn was added. Sertraline was continued and TSH, FT4 were ordered but not drawn when pt met with tw today at 1130am. Asked by CARE Team to consult with pt today.Discussed with nursing, who report pt has been compliant with medications, tolerating increase and has exhibited no symptoms of agitation or behavioral dyscontrol. Pt awaits admission to follow up with ongoing sx of agitation so medication changes could be continued so she may return to [facility]. Met with pt who is alert, oriented to person, place. She reports she is feeling well and ready to return to her home. She is calm, without agitation, engaged and resting comfortably in bed. Past Psychiatric History: Report no prior psychiatric dx or admission. Denies depression or anxiety. Medical Evaluation Reviewed: Yes Review of Systems Review of Systems Pt denies, she reports feeling well. [facility] Medical History Aggressive behavior Hiatal hernia History of DVT (deep vein thrombosis) HTN (hypertension) Hypothyroid Recurrent UTI HLD (hyperlipidemia) Dementia Surgical History History of ankle surgery H/O colonoscopy Family History: Patient lives in a [facility] nursing facility with unlocked unit Social History: not discuss Substance History: Denies Trauma History: Not discuss Diagnostics Vital Signs (24Hr): Vital Signs - 24 hr 12/12/24 17:53 12/12/24 19:48 12/13/24 05:36 Temperature 97.8 F 98.0 F 97.7 F Pulse Rate 85 73 71 Respiratory Rate 16 16 16 Blood Pressure 184/71 H 161/70 H 155/75 H Pulse Oximetry 98 94 97 Oxygen Delivery Method Room Air Room Air Room Air 12/13/24 14:00 Temperature 98.1 F Pulse Rate 74 Respiratory Rate 18 Blood Pressure 164/81 H Pulse Oximetry 95 Oxygen Delivery Method Room Air BMI result Body Mass Index 32.2 Labs 12/12/24 13:38 12/12/24 13:38 Labs: Laboratory Results - last 48 hr 12/12/24 12/12/24 12/12/24 13:37 13:38 18:07 WBC 5.4 RBC 3.72 L Hgb 10.3 L Hct 33.8 L MCV 90.9 MCH 27.7 MCHC 30.5 L RDW 13.9 Plt Count 177 MPV 11.2 Immature Gran % (Auto) 0.2 Neut % (Auto) 74.0 H Lymph % (Auto) 17.3 L Leake % (Auto) 5.4 Eos % (Auto) 2.2 Baso % (Auto) 0.9 Lymph # (Auto) 0.9 L Leake # (Auto) 0.3 Eos # (Auto) 0.1 Baso # (Auto) 0.1 Abs Immat Gran (auto) 0.01 Absolute Neuts (auto) 4.0 Absolute Nucleated RBC 0.000 Nucleated RBC % (auto) 0.0 Sodium 145 Potassium 4.9 Chloride 110 H Carbon Dioxide 29 Anion Gap 11 L BUN 26 H Creatinine 1.31 Estim Creat Clear Calc 26.8 Estimated GFR 38 Random Glucose 101 Calcium 9.7 Total Bilirubin 0.3 Direct Bilirubin 0.1 AST 17 ALT 10 Alkaline Phosphatase 66 C-Reactive Protein 0.16 Total Protein 6.4 L Albumin 3.6 Urine Color Yellow Urine Appearance Clear Urine pH 7.0 Ur Specific [place] 1.015 Urine Protein Negative Urine Glucose (UA) Negative Urine Ketones Negative Urine Blood Negative Urine Nitrite Positive H Ur Leukocyte Esterase Large (3+) H Urine RBC 0-2 Urine WBC 21-50 Ur Squamous Epith Cells 0-2 Urine Bacteria Trace Hyaline Casts 0-2 Ethyl Alcohol 10 Influenza Type A (PCR) NEGATIVE Influenza Type B (PCR) NEGATIVE RSV RNA Qual (PCR) NEGATIVE SARS-CoV-2 RNA (RT-PCR) NEGATIVE Mental Status Exam Mental Status Exam Patient Appearance: Appropriate Patient Orientation: Person and Place Level of Consciousness: Alert Patient Behavior: Talkative, Cooperative and Good Eye Contact Mood Description: Calm and Appropriate Affect Description: Calm and Appropriate Patient Cognition Impaired: Yes Ability to Follow Directions: Fair Speech Pattern: Spontaneous Speech and Soft-Spoken Memory Description: Remote Impaired Hallucinations: None Delusions: Not Present Thought Process: Distracted Thought Content: positive for Circumstantial Depressive Symptoms: Thoughts of /Suicide (denies) Judgement: Poor Medications Medications Current Medications Ascorbic Acid (Ascorbic Acid 250 Mg Tablet) 250 mg PO DAILY [facility] Last Admin: 12/13/24 09:14 Dose: 250 mg Aspirin (Aspirin Enteric Coated 81 Mg Tablet.) 81 mg PO DAILY [facility] Last Admin: 12/13/24 09:14 Dose: 81 mg Atorvastatin Calcium (Atorvastatin Calcium 40 Mg Tablet) 40 mg PO BEDTIME [facility] Last Admin: 12/12/24 20:30 Dose: 40 mg Cephalexin HCl (Cephalexin 500 Mg Capsule) 500 mg PO BID [facility] Last Admin: 12/13/24 09:14 Dose: 500 mg Ferrous Sulfate (Ferrous Sulfate 324 Mg Tablet.) 324 mg PO DAILY [facility] Last Admin: 12/13/24 09:14 Dose: 324 mg Hydrochlorothiazide (Hydrochlorothiazide 12.5 Mg Tablet) 12.5 mg PO DAILY [facility]; Protocol Last Admin: 12/13/24 10:27 Dose: 12.5 mg Levothyroxine Sodium (Levothyroxine Sodium 50 Mcg Tablet) 50 mcg PO DAILY@0600 [facility] Last Admin: 12/13/24 07:09 Dose: 50 mcg Lisinopril (Lisinopril 10 Mg Tablet) 10 mg PO DAILY [facility]; Protocol Last Admin: 12/13/24 10:27 Dose: 10 mg Magnesium Hydroxide (Milk Of Magnesia 30 Ml Oral.Susp) 30 ml PO DAILY PRN PRN Reason: Constipation Melatonin (Melatonin 3 Mg Tablet) 6 mg PO BEDTIME [facility] Last Admin: 12/12/24 20:30 Dose: 6 mg Omeprazole (Omeprazole 20 Mg Capsule.) 20 mg PO BID@0630,1630 [facility] Last Admin: 12/13/24 16:46 Dose: 20 mg Quetiapine Fumarate (Quetiapine Fumarate 25 Mg Tablet) 25 mg PO BID PRN PRN Reason: agitatios/severe anxiety Quetiapine Fumarate (Quetiapine Fumarate 50 Mg Tablet) 50 mg PO TID [facility] Last Admin: 12/13/24 16:46 Dose: 50 mg Rivaroxaban (Rivaroxaban 20 Mg Tablet) 20 mg PO DAILY@1700 [facility] Senna (Sennosides 8.6 Mg Tablet) 8.6 mg PO BID PRN PRN Reason: Constipation Sertraline HCl (Sertraline Hcl 25 Mg Tablet) 75 mg PO DAILY [facility] Last Admin: 12/13/24 09:14 Dose: 75 mg Vitamin D (Cholecalciferol (Vitamin D3) 25 Mcg Tablet) 50 mcg PO DAILY [facility] Last Admin: 12/13/24 09:14 Dose: 50 mcg Allergies Allergies Allergy/AdvReac Type Severity Reaction Status Date / Time No Known Allergies Allergy Verified 12/12/24 12:55 Assessment & Plan Assessment & Plan (1) Dementia: Status: Acute Code(s): F03.90 - Unspecified dementia, unspecified severity, without behavioral disturbance, psychotic disturbance, mood disturbance, and anxiety (2) Aggressive behavior: Status: Acute Code(s): R46.89 - Other symptoms and signs involving appearance and behavior Plan Continue current regime and plan for admission for completed evaluation of behavioral dyscontrol, reported since admission to [facility] in August 2024. Total time managing care of this patient today ____ minutes.
--- NOTE | 2024-12-13 18:26 | MHC.CM.ED ---
Pt will be a [facility] bed search per Lina bsa officer. Note pending. Verified with Stephanie Menjivar clinical coordinator. Per Stephanie, there might be a bed tomorrow. Stephanie tells CM she will call her son. JACKIE defers care of this patient to psych team. Primary RN aware.
--- NOTE | 2024-12-13 19:46 | MHC.CARE ---
Spoke with Pt's HCP (Jaime; [phone]) regarding Pt being seen by psychiatry and the recommendation is for Geriatric IPLOC. HCP is agreeable and was provided CARE team's contact information.
--- NOTE | 2024-12-13 20:58 | PC.NURSE ---
Addendum entered by Jeannie Vega RN 12/13/24 22:31: ISABELLE Kelly Tech sitting on 1:1 with PT at this time. Original Note: PT placed on a section 12, notified CC. Tomeka
--- NOTE | 2024-12-13 23:17 | PC.NURSE ---
1:1 sitter at bedside. PT resting quietly with eyes closed, respiration even and unlabored
--- NOTE | 2024-12-14 06:17 | PC.NURSE ---
request sent to pharmacy via tiger text for missing meds in pyxsis. awaiting delivery
[2024-12-14 06:41] VITALS: BP 176/67; PULSE 75; RESP 20; TEMP 36.5; O2SAT 96
[2024-12-14] MEDS: Aspirin Enteric Coated 81 MG TABLET.DR PO (08:18)
[2024-12-14] MEDS: Ferrous Sulfate 324 MG TABLET.DR PO (08:20)
[2024-12-14 09:06] VITALS: BP 176/67
[2024-12-14 09:07] VITALS: BP 176/67
--- NOTE | 2024-12-14 10:36 | PC.NURSE ---
PT A&O X4 VSS NAD Tomeka PO well, No complaints at this time.Sitter with pt for safety. Pt pleasant and cooperative, ambulates to Br well with sitter assist.
[2024-12-14 14:00] VITALS: BP 129/66; PULSE 78; RESP 18; TEMP 36.5; O2SAT 98
--- NOTE | 2024-12-14 17:05 | PC.NURSE ---
Assumed care of this pt. Remains on 1:1. Intermittently threatening to leave, requesting clothes, abrasive towards staff. Somewhat easy to redirect. Resistant to medications.
[2024-12-14] MEDS: OLANZapine 10 MG VIAL IM (20:02)
--- NOTE | 2024-12-14 21:17 | PC.NURSE ---
Pt ambulated with unsteady gait to bathroom with sitter and rolled materials worker for assistance. Pt became upset, agitated and angry when staff explained that they would close the door once she was seated down on the toilet to prevent her falling. Pt pulling at door and when she was unable to close it began digging her nails into rolled materials worker's left forearm and then began hitting the tech. This RN stepped in and told pt that this was not acceptable to be hitting the staff. Patient began yelling profanities at staff. This RN told her that it is not okay to be swearing at the staff and that there are other patient's on the unit. Pt states she doesn't care and she can do whatever and say whatever she wants. Pt began taunting this RN stating Oh look at the big nun who can't handle swearing and told this RN to (expletive). Security called and they came to the unit. Pt assisted back into chair by security. Physician in charge of pt notified. Pt medicated per JUL.
[2024-12-15 06:00] VITALS: BP 168/81; PULSE 73; RESP 16; TEMP 37; O2SAT 98
[2024-12-15] MEDS: Aspirin Enteric Coated 81 MG TABLET.DR PO (08:54)
[2024-12-15 08:55] VITALS: BP 134/55
[2024-12-15] MEDS: Ferrous Sulfate 324 MG TABLET.DR PO (08:55)
--- NOTE | 2024-12-15 09:24 | PC.NURSE ---
Addendum entered by Jaz Obrien RN 12/15/24 14:20: Pt orly Sandoval (HCP) at bedside visiting pt. Provider notified and came to bedside to talk with pt and family. Addendum entered by Jaz Obrien RN 12/15/24 13:15: Per provider attempts were made to contact family regarding MOLST/advance directives for pt but no response. Provider left message and is awaiting call back Original Note: Contacted ED CM provider for code status on pt and requested to contact pt's INTERMEDIATE for any forms or documented. Per Hari Adler, they do not have any MOLST forms or advance directives on file. Provider notified.
--- NOTE | 2024-12-15 13:05 | PC.NURSE ---
Assumed care of pt approx 0700, resting quietly in bed watching TV. Ambulates with 1 assist to bathroom, tolerating regular diet. Took medications whole with water. Sitter at bedside, call reddy placed within reach and pt able to make needs known.
[2024-12-15 13:48] VITALS: BP 138/72; PULSE 78; RESP 16; TEMP 36.9; O2SAT 96
[2024-12-15 19:59] VITALS: BP 109/55; PULSE 80; RESP 18; TEMP 36.9; O2SAT 93
--- NOTE | 2024-12-15 21:18 | PC.NURSE ---
pt remains a 1:1, a bit confused, able to redirect, pt medicated per mar, pt resting in bed.
--- NOTE | 2024-12-16 01:13 | PC.NURSE ---
pt assisted to bed room by Tech
--- NOTE | 2024-12-16 03:40 | MHC.EDTECH ---
This tech took over acre of pt at 0300am, rounds completed, pt is sleeping, resp. rate WNL, 1:1 sitter at bed side for safety
--- NOTE | 2024-12-16 04:00 | MHC.EDTECH ---
This tech took over care of pt at 0300am, rounds completed, pt is sleeping,resp. rate WNL, 1:1 sitter at bedside for safety
[2024-12-16 06:00] VITALS: BP 132/67; PULSE 63; RESP 16; TEMP 36.6; O2SAT 97
--- NOTE | 2024-12-16 06:19 | MHC.EDTECH ---
Hourly rounds and vitals completed, patient is resting quietly,1:1 sitter at bedside for safety
[2024-12-16 09:15] VITALS: BP 132/67
[2024-12-16 09:16] VITALS: BP 132/67
[2024-12-16] MEDS: Ferrous Sulfate 324 MG TABLET.DR PO (09:16)
[2024-12-16] MEDS: Aspirin Enteric Coated 81 MG TABLET.DR PO (09:16)
--- NOTE | 2024-12-16 09:21 | PC.NURSE ---
patient alert to person/place is unaware of time/date, pt rr equal/non labored, lungs clear/diminished, pharmacy brought medications for patient and she was medicated per order, currently eating breakfast, ambulated with stby assist to bathroom, vitals currently stable, fall precautions intact, 1:1 sitter at bedside-pt calm/cooperative at this time, call reddy within reach, plan of care ongoing
[2024-12-16 14:00] VITALS: BP 111/51; PULSE 75; RESP 17; TEMP 36.8; O2SAT 98
--- NOTE | 2024-12-16 17:10 | MHC.EDTECH ---
pt was 1 assist to the bathroom and voided
[2024-12-16 21:21] VITALS: BP 149/63; PULSE 68; RESP 16; TEMP 37.2; O2SAT 96
[2024-12-17 06:00] VITALS: BP 150/74; PULSE 71; RESP 17; TEMP 36.5; O2SAT 97
[2024-12-17] MEDS: Aspirin Enteric Coated 81 MG TABLET.DR PO (09:38)
[2024-12-17] MEDS: Ferrous Sulfate 324 MG TABLET.DR PO (09:38)
[2024-12-17 14:00] VITALS: BP 149/70; PULSE 70; RESP 17; TEMP 36.7; O2SAT 99
[2024-12-17 22:00] VITALS: BP 96/49; PULSE 71; RESP 18; TEMP 36.6; O2SAT 94
[2024-12-18 06:00] VITALS: BP 131/61; PULSE 58; RESP 16; TEMP 36.4; O2SAT 98
[2024-12-18] MEDS: Aspirin Enteric Coated 81 MG TABLET.DR PO (10:09)
[2024-12-18] MEDS: Ferrous Sulfate 324 MG TABLET.DR PO (10:10)
[2024-12-18 10:11] VITALS: BP 133/65
--- NOTE | 2024-12-18 10:40 | PC.NURSE ---
Pt alert, oriented X2, unsure of day/date; currently calm/cooperative/pleasant; sitter in place for pt safety; pt ambulating to/from BR with rolling walker and 1 assist; some unsteadiness noted and pt reports feeling weaker than usual; afebrie; vss; skin intact; noted to thoracic back area are two quarter-sized bruises on either side of spine; appear to be in healing phase; unknown cause or time of cause; pt unaware of any injury; denies back pain and no open skin noted; provider made aware
[2024-12-18 13:44] VITALS: BP 100/45; PULSE 73; RESP 16; TEMP 36.8; O2SAT 96
[2024-12-18 14:00] VITALS: BP 108/70; PULSE 78; RESP 14; TEMP 36.9; O2SAT 99
[2024-12-18 20:45] VITALS: BP 111/60; PULSE 78; RESP 18; TEMP 36.7; O2SAT 95
--- NOTE | 2024-12-18 21:08 | PC.NURSE ---
min. assist OOB, ambulated to bathroom steadily with home rollator
[2024-12-19] VITALS (8 sets, daily range): BP systolic 83–120; BP diastolic 43–58; PULSE 64–81; RESP 14–18; TEMP 35.5–37.2; O2SAT 93–94
--- NOTE | 2024-12-19 | ECG_ITS ---
Test Reason : CHECK QTC Blood Pressure : */* mmHG Vent. Rate : 78 BPM Atrial Rate : 78 BPM P-R Int : 150 ms QRS Dur : 74 ms QT Int : 374 ms P-R-T Axes : 26 6 38 degrees QTcB Int : 426 ms Normal sinus rhythm Normal ECG When compared with ECG of 12-Dec-2024 13:31, T wave inversion no longer evident in Inferior leads T wave amplitude has increased in Anterior leads Referred By: Lina Almanzar Electronically Signed By: AZAEL ALMAGUER MD
[2024-12-19] MEDS: Aspirin Enteric Coated 81 MG TABLET.DR PO (08:53)
[2024-12-19] MEDS: Ferrous Sulfate 324 MG TABLET.DR PO (09:40)
--- NOTE | 2024-12-19 12:32 | P.CNPS_ITS ---
History of Present Illness Date of Service: 12/19/24 Chief Complaint: ELOPED FRO SNF,OUTBURSTS @SNF,FAM WANTS PSYCH EVAL Reason for Consult: Assessment for return to retirement Requesting physician: Aimee Madera Sources of Information: patient interviewed, chart reviewed and crisis/core team assessment reviewed HPI Narrative: 89 yo female[place] [facility] from her nursing facility with agitation. Team reported pt had needed a one to one since her admit in August due to agitation and had refused to move to the secure portion of the facility. Family as a result had hired a one to one for pt. Pt was seen on admission and medications were evaluated and adjusted. Team has searched the state daily for a geriatric psych bed to no avail. Or essentially has tolerated changes well with some agitation on 12/15 and with no SI,HI, AH,VH or sx of psychosis. She has accepted medications and has had behavioral stability. She does require some assist with walking as gait may be unsteady. From a medicine perspective, Sertraline was continued, Trazodone was not utilized, Seroquel was increased to 50 mg tid at 7am, 12pm, 4pm, Lorazepam was not used. As pt has been stabilized team will plan a return to her retirement facility. Met with pt to discuss this. She states she is well without SI,HI,AH, VH. never she replies. She talks about her mood dysregulation stating, I think it is inherited . I think a few of my children have it. I know it cannot be fixed but can be managed, and I feel now my issues are managed. I have friends where I live, I will be happy to see them. Past Psychiatric History: Report no prior psychiatric dx or admission. Denies depression or anxiety. Medical Evaluation Reviewed: Yes Review of Systems Review of Systems denies [facility] Medical History (Updated 12/19/24 @ 17:40 by Lina Almanzar APRN) Dementia with agitation Aggressive behavior Hiatal hernia History of DVT (deep vein thrombosis) HTN (hypertension) Hypothyroid Recurrent UTI HLD (hyperlipidemia) Dementia Surgical History History of ankle surgery H/O colonoscopy Family History: Patient lives in a [facility] nursing facility with unlocked unit Social History: not discussed Substance History: denies Trauma History: Not discussed Diagnostics Vital Signs (24Hr): Vital Signs - 24 hr 12/18/24 13:44 12/18/24 14:00 12/18/24 20:45 Temperature 98.2 F 98.5 F 98.1 F Pulse Rate 73 78 78 Respiratory Rate 16 14 18 Blood Pressure 100/45 L 108/70 111/60 Pulse Oximetry 96 99 95 Oxygen Delivery Method Room Air Room Air 12/19/24 05:22 12/19/24 09:00 12/19/24 09:40 Temperature 97.7 F 98.0 F Pulse Rate 64 76 Respiratory Rate 18 14 Blood Pressure 109/54 L 120/58 L 120/58 L Pulse Oximetry 94 93 Oxygen Delivery Method Room Air Room Air 12/19/24 09:40 Temperature Pulse Rate Respiratory Rate Blood Pressure 120/58 L Pulse Oximetry Oxygen Delivery Method BMI result Body Mass Index 32.2 Labs 12/12/24 13:38 12/12/24 13:38 Medications Medications Current Medications Ascorbic Acid (Ascorbic Acid 250 Mg Tablet) 250 mg PO DAILY [facility] Last Admin: 12/19/24 08:53 Dose: 250 mg Aspirin (Aspirin Enteric Coated 81 Mg Tablet.) 81 mg PO DAILY [facility] Last Admin: 12/19/24 08:53 Dose: 81 mg Atorvastatin Calcium (Atorvastatin Calcium 40 Mg Tablet) 40 mg PO BEDTIME [facility] Last Admin: 12/18/24 20:46 Dose: 40 mg Cephalexin HCl (Cephalexin 500 Mg Capsule) 500 mg PO BID [facility] Last Admin: 12/19/24 08:53 Dose: 500 mg Ferrous Sulfate (Ferrous Sulfate 324 Mg Tablet.) 324 mg PO DAILY [facility] Last Admin: 12/19/24 09:40 Dose: 324 mg Hydrochlorothiazide (Hydrochlorothiazide 12.5 Mg Tablet) 12.5 mg PO DAILY [facility]; Protocol Last Admin: 12/19/24 09:40 Dose: 12.5 mg Levothyroxine Sodium (Levothyroxine Sodium 50 Mcg Tablet) 50 mcg PO DAILY@0600 [facility] Last Admin: 12/19/24 06:40 Dose: 50 mcg Lisinopril (Lisinopril 10 Mg Tablet) 10 mg PO DAILY [facility]; Protocol Last Admin: 12/19/24 09:40 Dose: 10 mg Lorazepam (Lorazepam 1 Mg Tablet) 2 mg PO Q6H PRN PRN Reason: anxiety/restlessness Magnesium Hydroxide (Milk Of Magnesia 30 Ml Oral.Susp) 30 ml PO DAILY PRN PRN Reason: Constipation Melatonin (Melatonin 3 Mg Tablet) 6 mg PO BEDTIME [facility] Last Admin: 12/18/24 20:46 Dose: 6 mg Omeprazole (Omeprazole 20 Mg Capsule.Dr) 20 mg PO BID@0630,1630 [facility] Last Admin: 12/19/24 06:40 Dose: 20 mg Quetiapine Fumarate (Quetiapine Fumarate 25 Mg Tablet) 25 mg PO BID PRN PRN Reason: agitatios/severe anxiety Last Admin: 12/15/24 16:42 Dose: 25 mg Quetiapine Fumarate (Quetiapine Fumarate 50 Mg Tablet) 50 mg PO TID [facility] Last Admin: 12/19/24 08:53 Dose: 50 mg Quetiapine Fumarate (Quetiapine Fumarate 50 Mg Tablet) 50 mg PO TID@0700,1200,1600 [facility] Last Admin: 12/19/24 12:05 Dose: 50 mg Rivaroxaban (Rivaroxaban 20 Mg Tablet) 20 mg PO DAILY@1700 [facility] Last Admin: 12/18/24 16:21 Dose: 20 mg Senna (Sennosides 8.6 Mg Tablet) 8.6 mg PO BID PRN PRN Reason: Constipation Sertraline HCl (Sertraline Hcl 25 Mg Tablet) 75 mg PO DAILY [facility] Last Admin: 12/19/24 08:53 Dose: 75 mg Trazodone HCl (Trazodone Hcl 50 Mg Tablet) 12.5 mg PO DAILY@1600 [facility] Vitamin D (Cholecalciferol (Vitamin D3) 25 Mcg Tablet) 50 mcg PO DAILY [facility] Last Admin: 12/19/24 08:53 Dose: 50 mcg Allergies Allergies Allergy/AdvReac Type Severity Reaction Status Date / Time No Known Allergies Allergy Verified 12/12/24 12:55 Assessment & Plan Assessment & Plan (1) Dementia with agitation: Status: Acute Code(s): F03.911 - Unspecified dementia, unspecified severity, with agitation (2) Aggressive behavior: Status: Acute Code(s): R46.89 - Other symptoms and signs involving appearance and behavior Plan 89 yo female, history of dementia with agitation, aggression to ER after eloping from her assisted living facility and exhibiting agitated behavior. Medication changes have been made and pt has had several days of constant observation with improvement, tolerance of medication changes and no recurrence of agitation. Plan will be to discharge to her assisted living facility to be followed by the facility psychiatric services when team is able to make these arrangements. Plan: Follow up diagnostics in planning discharge to evaluate pt's response to medication changes. Total time managing care of this patient today ____ minutes.
--- NOTE | 2024-12-19 12:51 | MHC.EDTECH ---
pt ambulated to and from bathroom with a steady gait and use of her walker. pt urinated and had a bowel movement. stool was dark anderson color, no blood visualized. Sharon care was done. RN made aware.
--- NOTE | 2024-12-19 13:21 | MHC.CARE ---
Patient?s son/HCP was called and informed patient was seen by hospital psychiatry team SALES MANAGEMENT INTERN Lina Almanzar today 12/19/24 and patient no longer requires/meets inpatient level of care. Patient has remained in good behavioral control with no recent behavioral issues and has been medication compliant. Disposition is for discharged back to [facility] and/or memory care [facility] unit. See psych progress note for details. Patient will be referred to hospital case management team for further discharge planning.
--- NOTE | 2024-12-19 13:37 | MHC.CM.ED ---
Patient remains in ER overflow. Received notification from [facility] Care Team that patient is no longer inpatient [facility] bed search. Hari Adler on-site earlier this morning to evaluate patient. Attempted to reach Hari Adler via telephone at [phone]. Left message requesting return telephone call. Spoke with patient's son/HCP, Marco, via telephone at [phone]. Marco aware patient is no longer inpatient [facility] psych bed search. Also aware Hari Adler on-site assessment completed today and CM is waiting for return telephone call. Continue to monitor for d/c needs.
[2024-12-19 21:15] LABS: MANUAL DIFF FLAG NO
[2024-12-19 21:20] LABS: Hematocrit 31.2 % (37.0-47.0); Hemoglobin 9.9 g/dl (12.0-16.0); Imm Gran Abs Auto 0.02 X10*3/uL (0.00-0.03); Imm Gran Pct Auto 0.4 % (0.0-0.4); Lymphocytes Absolute Auto 1.5 X10*3/uL (1.2-4.9); Mean Corpuscular HGB Conc 31.7 g/dl (31.0-35.0); Mean Corpuscular Hemoglobin 28.5 pg (27.0-33.0); Mean Corpuscular Volume 89.9 fL (80.0-98.0); NRBC Abs Auto 0.000 X10*3/uL (0.0-0.012); NRBC Pct Auto 0.0 /100WBC (0.0-0.2); Platelet Count 150 X10*3/uL (160-400); Red Blood Count 3.47 X10*6/uL (4.20-5.50); White Blood Count 5.4 X10*3/uL (4.8-10.8)
[2024-12-19 21:32] LABS: Alanine Aminotransferase 12 U/L (0-31); Albumin Level 3.2 g/dL (3.5-5.0); Alkaline Phosphatase 69 U/L (39-117); Anion Gap 11 (12-20); Aspartate Amino Transferase 18 U/L (5-31); Blood Urea Nitrogen 44 mg/dL (9-16); Calcium 9.0 mg/dL (8.4-10.2); Carbon Dioxide 26 mmol/L (22-29); Chloride 105 mmol/L (96-108); Creatinine Clr Calc Pharmacy 20.1; Estimated Glomerular Filt Rate 27; Potassium 4.4 mmol/L (3.3-5.1); Sodium 138 mmol/L (135-145); Total Protein 5.8 g/dL (6.5-8.0)
--- NOTE | 2024-12-19 21:53 | PC.NURSE ---
Addendum entered by Brandon Chacko RN 12/19/24 22:03: per PA would like to obtain obsx sample and a rectal temp. states will be coming to overflow at this time. Original Note: approx 1999 this RN noted patient had labs ordered earlier in day that had not been completed. appropriate tubes were not available in overflow so wheel filler made aware and tubes were brought over. labs drawn at 2109 and medicated per jul at 2111. this RN notified by PRODUCTION TRUCK DRIVER patients bp 83/43. upon recheck BP is 91/43. pt is arousable speaking full clear sentences. HR 65. oral temp was 96F but refusing rectal temp check at this time. Chel ALANIZ made aware. awaiting response for plan of care.
--- NOTE | 2024-12-19 22:43 | PC.NURSE ---
Chel ALANIZ came to bedside. pt refusing rectal temp and obsx sample to be obtained. pt making statements such as you're not putting anything up my butt and calling the provider bitch asshole and piece of shit attempt to explain to patient the reasoning behind interventions and pt states i don't care. repeat BP able to be obtained and documented. pt is agreeable to an IV, 20g IV obtained to R. forearm. IVF infusing per Chel ALANIZ verbal order.
--- NOTE | 2024-12-20 01:40 | PC.NURSE ---
per CORBIN Milligan, to repeat BMP at this time.
[2024-12-20 02:11] LABS: Anion Gap 11 (12-20); Blood Urea Nitrogen 42 mg/dL (9-16); Calcium 8.7 mg/dL (8.4-10.2); Carbon Dioxide 24 mmol/L (22-29); Chloride 108 mmol/L (96-108); Creatinine Clr Calc Pharmacy 22.4; Estimated Glomerular Filt Rate 31; Potassium 4.2 mmol/L (3.3-5.1); Sodium 139 mmol/L (135-145)
--- NOTE | 2024-12-20 05:12 | PC.NURSE ---
per Chel ALANIZ verbal order, 500mL IV NS bolus ordered and given per jul. pt woke up and ambulatory with steady gait to bathroom using walker. pt did not have a BM. back to bed with steady gait. bed alarm is on. vitals obtained. call reddy within reach.
[2024-12-20 06:00] VITALS: BP 149/57; PULSE 67; RESP 16; TEMP 36.5; O2SAT 96
[2024-12-20 07:59] LABS: Hemoglobin A1C 97.4636 umol/L; Total Hemoglobin (HGBA1C) 2611.2190 umol/L
--- NOTE | 2024-12-20 09:08 | MHC.CM.ED ---
Addendum entered by Ashley Wolff 12/20/24 13:07: Received telephone call from Cat of [facility]. Facility still feels inpatient [facility] psych is recommended. T/W explained patient was cleared by psych for needing inpatient psych. Facility would require family provide 1:1 care from 8am to 8pm. Cat will reach out to family. Probable d/c back to [facility] 12/21. Original Note: Patient remain in ER overflow. Spoke with Cat at [facility]. Cat will find out about yesterday's assessment and get back to . Continue to monitor for d/c needs.
[2024-12-20] MEDS: Ferrous Sulfate 324 MG TABLET.DR PO (09:48)
[2024-12-20] MEDS: Aspirin Enteric Coated 81 MG TABLET.DR PO (09:48)
[2024-12-20 09:51] VITALS: BP 125/64
--- NOTE | 2024-12-20 12:05 | PC.NURSE ---
Family member Karen updated on pt's status per request, @ [phone]. Still awaiting response from [facility]. Pt resting comfortably in bed reading newspaper. Care ongoing.
[2024-12-20 14:00] VITALS: BP 140/72; PULSE 64; RESP 16; TEMP 36.7; O2SAT 100
[2024-12-20 20:56] LABS: OBS1 NEGATIVE (NEGATIVE)
[2024-12-20 20:57] LABS: OBS Int Ctl Valid YES
[2024-12-20 21:42] VITALS: BP 123/53; PULSE 78; RESP 16; TEMP 36.2; O2SAT 93
--- NOTE | 2024-12-20 23:51 | PC.NURSE ---
assumed care for pt at this time. pt noted to be sleeping in the bed, symmetrical rise and fall of chest and unlabored respirations noted. plan of care ongoing
--- NOTE | 2024-12-21 07:59 | PC.NURSE ---
Patient is a 89 yo female, to ER at [facility] on 12/12 s/p elopement from her nursing facility with agitation. Team reported pt had needed a one to one since her admit in August due to agitation and had refused to move to the secure portion of the facility. Family as a result had hired a one to one for pt. Pt was seen on admission and medications were evaluated and adjusted. Or essentially has tolerated changes well with some agitation on 12/15 and with no SI,HI, AH,VH or sx of psychosis. She has accepted medications and has had behavioral stability. She does require some assist with walking as gait may be unsteady. Medication changes implemented. As pt has been stabilized team will plan a return to her care home facility. She states she is well without SI,HI,AH, VH. never she replies. Patient is aware of her mood dysregulation. Alert and oriented. Respirations even and non-labored. Abdomen soft, non-tender with positive bowel sounds. Positive pedal pulses with no edema. Medical History Dementia with agitation Aggressive behavior Hiatal hernia History of DVT (deep vein thrombosis) HTN (hypertension) Hypothyroid Recurrent UTI HLD (hyperlipidemia) Dementia
[2024-12-21 08:00] VITALS: BP 146/76; PULSE 70; RESP 16; TEMP 36.8; O2SAT 92
[2024-12-21] MEDS: Ferrous Sulfate 324 MG TABLET.DR PO (08:08)
[2024-12-21] MEDS: Aspirin Enteric Coated 81 MG TABLET.DR PO (08:09)
--- NOTE | 2024-12-21 08:36 | MHC.CM.ED ---
Patient remains in ER overflow. Cat from [facility] on-site to assess patient. Per Cat, patient can return. Isaías FARFAN booked for 10am. Med [facility] with chart. Patient, Julee CHRIS and Bianka ALANIZ aware. Spoke with patient's son/HCP, Marco via telephone at [phone]. All questions answered. Information on portal provided. Marco had questions about which inpatient [facility] facilities were looked into. T/W explained Care Team was working on inpatient [facility] bed search. Care Team's contact information provided to [facility] as requested. Continue to monitor for d/c needs.
[2024-12-21 11:16] VITALS: BP 146/76; PULSE 70; RESP 16; TEMP 36.8; O2SAT 92
== END 2024-12-21 11:17 | disposition other institution (70) ==
PROVIDERS: Clinical Nurse Specialist Psychiatric/Mental Health, Adult; Emergency Medicine; Physician Assistant Medical; Emergency Provider Emergency Medicine
DX: R41.82 Altered mental status, unspecified (principal); F03.911 Unspecified dementia, unspecified severity, with agitation; R45.6 Violent behavior; I95.9 Hypotension, unspecified; R60.0 Localized edema; Z87.440 Personal history of urinary (tract) infections; Z03.818 Encounter for observation for suspected exposure to other biological agents ruled out; I10 Essential (primary) hypertension; E78.5 Hyperlipidemia, unspecified; E03.9 Hypothyroidism, unspecified; Z86.718 Personal history of other venous thrombosis and embolism; Z87.891 Personal history of nicotine dependence; Z79.01 Long term (current) use of anticoagulants; Z79.899 Other long term (current) drug therapy; Z79.02 Long term (current) use of antithrombotics/antiplatelets
CPT/HCPCS: 36415; 80048; 80053; 80076; 80307; 81001; 82272; 83036; 84443; 85025; 86140; 87086; 87637; 93005; 96360; 96361; 96372; 99285; J2250; J2359; S9485

== ENCOUNTER → 2024-12-12 12:57 | Outpatient (BNV) | payer MEDICARE, OTHER, SELFPAY | PROVIDERS: Emergency Provider Emergency Medicine; Visit Provider Internal Medicine Cardiovascular Disease | DX: R94.31 Abnormal electrocardiogram [ECG] [EKG] (principal); R41.82 Altered mental status, unspecified | CPT/HCPCS: 93010 ==

== ENCOUNTER → 2024-12-12 13:06 | Outpatient (BNV) | payer MEDICARE, OTHER, SELFPAY | PROVIDERS: Emergency Provider Emergency Medicine; Visit Provider Nurse Practitioner Psychiatric/Mental Health | DX: F03.90 Unspecified dementia, unspecified severity, without behavioral disturbance, psychotic disturbance, mood disturbance, and anxiety (principal); R46.89 Other symptoms and signs involving appearance and behavior | CPT/HCPCS: 99283 ==

== ENCOUNTER → 2024-12-19 18:44 | Outpatient (BNV) | payer MEDICARE, OTHER, SELFPAY | PROVIDERS: Emergency Provider Emergency Medicine; Visit Provider Internal Medicine Cardiovascular Disease | DX: Z13.6 Encounter for screening for cardiovascular disorders (principal) | CPT/HCPCS: 93010 ==

== ENCOUNTER 2025-02-08 17:37 | Inpatient (IN) | payer MEDICARE, OTHER, SELFPAY ==
--- NOTE | 2025-02-08 | ECG_ITS ---
Test Reason : AMS/FALL Blood Pressure : */* mmHG Vent. Rate : 88 BPM Atrial Rate : 88 BPM P-R Int : 170 ms QRS Dur : 80 ms QT Int : 346 ms P-R-T Axes : 37 0 10 degrees QTcB Int : 418 ms Normal sinus rhythm Normal ECG When compared with ECG of 19-Dec-2024 18:44, No significant change was found Referred By: Generic ED Physician Electronically Signed By: AZAEL ALMAGUER MD
--- NOTE | ~2025-02-08 | CT_ITS ---
EXAMINATION: CT ABDOMEN PELVIS WITHOUT IV CONTRAST HISTORY: recurrent uti COMPARISON: There are no prior studies available for comparison. TECHNIQUE: CT scan of the abdomen and pelvis was performed without contrast using standard departmental protocol. Coronal and sagittal reformatted images were generated and reviewed. Oral contrast material was not administered at the request of the referring physician. This CT exam was performed with one or more of the following dose reduction techniques: automated exposure control, adjustment of the mA and/or kV according to patient size, use of iterative reconstruction technique. DLP: 608 mGy-cm FINDINGS: LOWER CHEST: There is subsegmental atelectasis at the lung bases. There is no pleural effusion. CARDIOVASCULATURE: The heart is normal in size. There is no pericardial effusion. LIVER: The liver is normal in size and contour. The liver has an unremarkable unenhanced appearance. GALLBLADDER / BILE DUCTS: There is a large calcified gallstone present. There is no intra or extrahepatic biliary ductal dilatation. SPLEEN: The spleen is normal in size and has an unremarkable unenhanced appearance. PANCREAS: The pancreas has an unremarkable unenhanced appearance. ADRENAL GLANDS: Unremarkable. KIDNEYS/RETROPERITONEUM: No renal calculi are identified. There is no hydronephrosis. There is a 2.1 cm probable cyst at the upper pole of the right kidney. LYMPH NODES: No retroperitoneal lymphadenopathy is identified in the abdomen or pelvis. VASCULATURE: The abdominal aorta demonstrates atherosclerotic calcification, but is normal in caliber. MESENTERY/PERITONEUM: No free fluid. No masses. There is no free intraperitoneal gas. STOMACH: There is a very large hiatal hernia containing the majority of the stomach. SMALL BOWEL: The small bowel is normal in caliber. COLON: There is extensive diverticulosis of the colon without evidence of diverticulitis. APPENDIX: The appendix is not seen, however no inflammatory changes are seen adjacent to the cecum. URINARY BLADDER/PELVIC ORGANS: The urinary bladder is unremarkable without IV contrast material. The uterus has an unremarkable unenhanced appearance. BONES / SOFT TISSUES: There is a small fat-containing umbilical hernia and a small right inguinal hernia containing an unobstructed loop of small bowel. CT/CT abdomen pelvis wo IV con IMPRESSION: 1. No evidence of nephrolithiasis or ureteral obstruction. 2. Very large hiatal hernia. 3. Extensive colonic diverticulosis without evidence of diverticulitis. 4. Small fat-containing umbilical hernia. Small right inguinal hernia containing an unobstructed loop of small bowel. 5. Cholelithiasis. Electronically signed by: Denys Carlos MD 02/09/2025 09:48 AM EDT
--- NOTE | ~2025-02-08 | CT_ITS ---
CLINICAL HISTORY: trauma CT head without contrast Comparison: None provided Findings: BRAIN: No acute infarct, hemorrhage, or mass effect. Scattered periventricular/deep white matter hypodensities, nonspecific, however may represent chronic microvascular ischemic disease. CSF SPACES: No hydrocephalus or effacement of basal cisterns. SKULL: No calvarial fracture. SINUSES: No significant mucosal thickening or effusion on limited views. ORBITS: Bilateral lens replacements. OTHER: Negative. IMPRESSION: 1. No acute intracranial findings. This document has been electronically signed by: Rachael Young MD on 02/08/2025 20:51:48
--- NOTE | ~2025-02-08 | CT_ITS ---
CLINICAL HISTORY: trauma CT cervical spine without contrast Comparison: None provided Findings: Vertebral alignment is within normal limits. Multilevel degenerative endplate changes of the cervical spine. No acute fractures or dislocations. No acute findings on limited view of the intracranial contents. Calcified right thyroid nodule measuring 1.1 cm. This would be better evaluated with ultrasound. Lung apices are clear. IMPRESSION: No acute traumatic abnormality in the cervical spine. This document has been electronically signed by: Rachael Young MD on 02/08/2025 20:44:47
[2025-02-08 17:42] VITALS: BP 167/90; PULSE 88; PULSE 93; RESP 16; TEMP 36.7; O2SAT 96; O2SAT 97; BMI 33.1
[2025-02-08 19:22] VITALS: BP 178/90; PULSE 89; RESP 12; TEMP 36.9; O2SAT 99
[2025-02-08 19:46] LABS: MANUAL DIFF FLAG NO
[2025-02-08 19:47] LABS: Hematocrit 33.0 % (37.0-47.0); Hemoglobin 10.7 g/dl (12.0-16.0); Imm Gran Abs Auto 0.03 X10*3/uL (0.00-0.03); Imm Gran Pct Auto 0.4 % (0.0-0.4); Lymphocytes Absolute Auto 1.3 X10*3/uL (1.2-4.9); Mean Corpuscular HGB Conc 32.4 g/dl (31.0-35.0); Mean Corpuscular Hemoglobin 28.4 pg (27.0-33.0); Mean Corpuscular Volume 87.5 fL (80.0-98.0); NRBC Abs Auto 0.000 X10*3/uL (0.0-0.012); NRBC Pct Auto 0.0 /100WBC (0.0-0.2); Platelet Count 192 X10*3/uL (160-400); Red Blood Count 3.77 X10*6/uL (4.20-5.50); White Blood Count 7.9 X10*3/uL (4.8-10.8)
[2025-02-08 20:01] LABS: Alanine Aminotransferase 13 U/L (0-31); Albumin Level 3.8 g/dL (3.5-5.0); Alkaline Phosphatase 76 U/L (39-117); Anion Gap 11 (12-20); Aspartate Amino Transferase 20 U/L (5-31); Blood Urea Nitrogen 26 mg/dL (9-16); Calcium 10.2 mg/dL (8.4-10.2); Carbon Dioxide 25 mmol/L (22-29); Chloride 110 mmol/L (96-108); Creatinine Clr Calc Pharmacy 30.9; Estimated Glomerular Filt Rate 45; INTERNATIONAL NORM RATIO 1.2 (0.9-1.1); Magnesium 1.7 mg/dL (1.6-2.6); Potassium 4.8 mmol/L (3.3-5.1); Prothrombin Time 13.3 SEC (10.9-12.4); Sodium 141 mmol/L (135-145); Total Protein 6.6 g/dL (6.5-8.0)
[2025-02-08 20:04] LABS: Partial Thromboplastin Time 30.3 SEC (26.7-34.1)
[2025-02-08 20:05] LABS: Appearance Urine Cloudy; Glucose Urine UA Negative (Negative); PH 8.0 (5.0-9.0); Specific Gravity - Urine 1.010 (1.005-1.025); UMIC TRIGGER UACC YES
[2025-02-08 20:07] LABS: UACC Culture Trigger YES
[2025-02-08 21:11] VITALS: BP 142/65; PULSE 86; RESP 12; O2SAT 98
--- NOTE | 2025-02-08 21:27 | PC.NURSE ---
Attempted to call pts son for update and no answer.
--- NOTE | 2025-02-08 21:45 | ED.GENADULT ---
HPI - General Adult General Chief complaint: Fall Stated complaint: AMS Time Seen by Provider: 02/08/25 19:25 Source: EMS and RN notes reviewed Limitations: other (Dementia, confusion) History of Present Illness ED Provider: Yusra Lezama PA-C HPI narrative: 89-year-old female with a history of dementia with agitation, hypertension, hypothyroidism, hyperlipidemia, recurrent urinary tract infections, was found wandering in the road near her facility. Patient is coming from assisted living, she apparently eloped from her home. We are told the patient is being treated for a urinary tract infection, and that she has sustained multiple recent falls secondary to weakness and gait instability. The patient complains of left shoulder pain, she has no other physical concerns complaints at this time. Related Data Home Medications ?Medication ?Instructions ?Recorded ?Confirmed ascorbic acid (vitamin C) 250 mg 250 mg PO DAILY 11/13/24 02/09/25 tablet (Vitamin C) aspirin 81 mg tablet,delayed 81 mg PO DAILY 11/13/24 02/09/25 release atorvastatin 40 mg tablet 40 mg PO BEDTIME 11/13/24 02/09/25 cholecalciferol (vitamin D3) 50 50 mcg PO DAILY 11/13/24 02/09/25 mcg (2,000 unit) capsule (Vitamin D3) hydrochlorothiazide 12.5 mg tablet 12.5 mg PO DAILY 11/13/24 02/09/25 levothyroxine 50 mcg tablet 50 mcg PO DAILY@0600 11/13/24 02/09/25 lisinopril 10 mg tablet 15 mg PO DAILY 11/13/24 02/09/25 sertraline 50 mg tablet 75 mg PO DAILY 11/13/24 02/09/25 magnesium hydroxide 400 mg/5 mL 30 ml PO DAILY PRN Constipation 11/14/24 02/09/25 oral suspension (Milk of Magnesia) melatonin 3 mg tablet 6 mg PO BEDTIME 11/14/24 02/09/25 rivaroxaban 20 mg tablet (Xarelto) 20 mg PO DAILY@0730 11/14/24 02/09/25 Held on 11/17/24. Instructions: Resume on 11/23/24. sennosides 8.6 mg tablet (senna) 8.6 mg PO BID PRN Constipation 11/14/24 02/09/25 ferrous gluconate 324 mg (38 mg 324 mg PO DAILY 12/13/24 02/09/25 iron) tablet quetiapine 50 mg tablet 50 mg PO TID@0700,1200,1600 12/13/24 02/09/25 trazodone 50 mg tablet 12.5 mg PO DAILY@1600 12/13/24 02/09/25 zinc oxide 13 % topical cream 1 appl topical BID 12/13/24 02/09/25 (Desitin Daily Defense) Lactobacillus acidophilus 500 500 mmu cells PO DAILY 02/09/25 02/09/25 million cell capsule cephalexin 250 mg tablet 250 mg PO MOWEFR 02/09/25 02/09/25 cholecalciferol (vitamin D3) 1,250 1,250 mcg PO QMONTH 02/09/25 02/09/25 mcg (50,000 unit) tablet loperamide 2 mg tablet 2 mg PO Q6H PRN Loose Stool 02/09/25 02/09/25 omeprazole 20 mg capsule,delayed 20 mg PO BID@0630,1630 02/09/25 02/09/25 release Allergies Allergy/AdvReac Type Severity Reaction Status Date / Time No Known Allergies Allergy Verified 02/08/25 17:49 [facility] Past Medical History Medical History (Updated 02/08/25 @ 22:40 by CORBIN Berg) Dementia with agitation Aggressive behavior Hiatal hernia History of DVT (deep vein thrombosis) HTN (hypertension) Hypothyroid Recurrent UTI HLD (hyperlipidemia) Dementia Surgical History History of ankle surgery H/O colonoscopy Social History Social History Household Members: Unknown / Unable to assess Housing: Unknown / Unable to assess Housing Other:: [facility] Are you a primary day care provider to a significant other at home: No Do you presently have visiting nurse or other home services: Yes Alcohol intake: former Patient Tobacco Use Status: Former Tobacco user Tobacco use type: Cigarette e-Cigarette/Vaping Use: Former Use Advance Directives Date on File: 04/19/24 service: No Physical Exam ED Vital Signs: Vital Signs - 24 hr 02/08/25 17:42 02/08/25 19:22 02/08/25 21:11 Temperature 98.1 F 98.5 F Pulse Rate 88 89 86 Respiratory Rate 16 12 12 Blood Pressure 178/90 H 142/65 H Pulse Oximetry 97 99 98 Oxygen Delivery Method Room Air Room Air Room Air 02/08/25 22:12 Temperature 98.0 F Pulse Rate 78 Respiratory Rate 18 Blood Pressure 171/66 H Pulse Oximetry 98 Oxygen Delivery Method Room Air BMI result Body Mass Index 33.1 Course Reevaluation(s) Reevaluation #1: Evidence of urinary tract infection, adding on blood cultures, lactic and starting ceftriaxone, we will admit the patient. Medications Administered Generic Name Dose Route Start Last Admin Trade Name Freq PRN Reason Stop Dose Admin Acetaminophen 650 mg 02/09/25 00:29 02/09/25 16:54 Acetaminophen 325 Mg Tablet PO 650 mg Q6H PRN Administration Pain, Mild 1-3,fever,headache Atorvastatin Calcium 40 mg 02/09/25 21:00 02/09/25 21:23 Atorvastatin Calcium 40 Mg Tablet PO 40 mg BEDTIME NESS Administration Ceftriaxone Sodium 1 gm 02/09/25 21:00 02/09/25 21:23 Ceftriaxone Sodium 1 Gm Vial IVPUSH 1 gm BEDTIME NESS Administration Melatonin 6 mg 02/09/25 21:00 02/09/25 21:24 Melatonin 3 Mg Tablet PO 6 mg BEDTIME NESS Administration Omeprazole 20 mg 02/09/25 16:30 02/09/25 16:55 Omeprazole 20 Mg Capsule.Dr PO Not Given BID@0630,1630 NESS Quetiapine Fumarate 50 mg 02/09/25 16:00 02/09/25 16:54 Quetiapine Fumarate 50 Mg Tablet PO 50 mg TID@0700,1200,1600 NESS Administration Sodium Chloride 3 ml 02/09/25 08:00 02/09/25 15:48 0.9 % Sodium Chloride Flush 3 Ml Syringe IVFLUSH Not Given QSHIFT NESS Trazodone HCl 12.5 mg 02/09/25 16:00 02/09/25 16:53 Trazodone Hcl 50 Mg Tablet PO 12.5 mg DAILY@1600 NESS Administration Zinc Oxide 1 appl 02/09/25 21:00 02/09/25 21:35 Zinc Oxide 20% Ointment 28.35 Gm Tube TOPICAL 1 appl BID NESS Administration Discontinued Medications Generic Name Dose Route Start Last Admin Trade Name Freq PRN Reason Stop Dose Admin Ceftriaxone Sodium 2 gm 02/08/25 21:48 02/08/25 22:21 Ceftriaxone Sodium 2 Gm Vial IVPUSH 02/08/25 21:49 2 gm ONCE ONE Administration Lactated Ringer's 1,000 mls @ 50 mls/hr 02/09/25 00:30 02/09/25 15:38 Lr IVCONT Infused .Q20H NESS Infusion Midazolam HCl 3 mg 02/09/25 00:33 02/09/25 00:39 Midazolam Hcl 2 Mg/2 Ml Vial IVPUSH 02/09/25 00:34 3 mg ONCE ONE Administration Olanzapine 10 mg 02/09/25 00:33 02/09/25 00:38 Olanzapine 10 Mg Vial IM 02/09/25 00:34 10 mg ONCE ONE Administration Olanzapine 10 mg 02/09/25 12:15 02/09/25 12:25 Olanzapine 10 Mg Vial IM 02/09/25 12:16 10 mg ONCE ONE Administration Olanzapine 10 mg 02/09/25 14:18 02/09/25 15:21 Olanzapine 10 Mg Vial IM 02/09/25 14:19 10 mg ONCE ONE Administration Medical Decision Making Medical Decision Making MDM Narrative: 89-year-old female with a history of dementia with agitation, hypertension, hypothyroidism, hyperlipidemia, recurrent urinary tract infections, was found wandering in the road near her facility. Patient is coming from assisted living, she apparently eloped from her home. We are told the patient is being treated for a urinary tract infection, and that she has sustained multiple recent falls secondary to weakness and gait instability. The patient complains of left shoulder pain, she has no other physical concerns complaints at this time. Unclear if the patient had positive head strike when she fell. Problem: Dementia, recurrent urinary tract infection History: Per nursing report I have considered the following differential diagnoses: Intracranial hemorrhage, cervical spine injury, fracture, dislocation, refractory urinary tract infection, worsening dementia Plan: Patient is not a reliable historian, we will scan her head and neck, despite there was no evidence of head trauma. She does complain of shoulder pain, however she has no deformity, she has full range of motion, she does have some bruising. No indication for x-rays. We will screen basic labs and obtain a urine sample. I have independently reviewed the following tests: Labs: No overall leukocytosis, left shift noted, not anemic, no electrolyte abnormalities, urine appears infected it was from a straight cath, CT brain:MPRESSION: 1. No acute intracranial findings. CT cervical: Findings: Vertebral alignment is within normal limits. Multilevel degenerative endplate changes of the cervical spine. No acute fractures or dislocations. No acute findings on limited view of the intracranial contents. Calcified right thyroid nodule measuring 1.1 cm. This would be better evaluated with ultrasound. Lung apices are clear. IMPRESSION: No acute traumatic abnormality in the cervical spine. Differential Diagnosis Differential Diagnoses: The differential diagnosis associated with the presentation includes See medical decision-making Admission/Observation Consideration of admission/observation: Escalation of care including admission/observation considered Admit Consult Healthcare Provider Management of the patient was discussed with: Hospitalist Lab Data MDM Lab Attestation statement: I reviewed the patient's lab results. 02/09/25 08:51 02/09/25 08:51 Labs: Lab Results 02/08/25 02/08/25 02/08/25 Range/Units 19:42 19:57 22:07 WBC 7.9 (4.8-10.8) X10*3/uL RBC 3.77 L (4.20-5.50) X10*6/uL Hgb 10.7 L (12.0-16.0) g/dl Hct 33.0 L (37.0-47.0) % MCV 87.5 (80.0-98.0) fL MCH 28.4 (27.0-33.0) pg MCHC 32.4 (31.0-35.0) g/dl RDW 14.6 (11.0-16.0) % Plt Count 192 D (160-400) X10*3/uL MPV 10.6 (9.4-12.3) fL Immature Gran % (Auto) 0.4 (0.0-0.4) % Neut % (Auto) 74.0 H (45-73) % Lymph % (Auto) 16.8 L (20-40) % Hughes % (Auto) 6.2 (2-11) % Eos % (Auto) 2.0 (0-4) % Baso % (Auto) 0.6 (0-2) % Lymph # (Auto) 1.3 (1.2-4.9) X10*3/uL Hughes # (Auto) 0.5 (0.1-1.2) X10*3/uL Eos # (Auto) 0.2 (0.0-0.4) X10*3/uL Baso # (Auto) 0.1 (0.0-0.2) X10*3/uL Abs Immat Gran (auto) 0.03 (0.00-0.03) X10*3/uL Absolute Neuts (auto) 5.8 (2.0-8.3) x10*3/uL Absolute Nucleated RBC 0.000 (0.0-0.012) X10*3/uL Nucleated RBC % (auto) 0.0 (0.0-0.2) /100WBC PT 13.3 H (10.9-12.4) SEC INR 1.2 H (0.9-1.1) APTT 30.3 (26.7-34.1) SEC Sodium 141 (135-145) mmol/L Potassium 4.8 (3.3-5.1) mmol/L Chloride 110 H (96-108) mmol/L Carbon Dioxide 25 (22-29) mmol/L Anion Gap 11 L (12-20) BUN 26 H (9-16) mg/dL Creatinine 1.15 (0.5-1.4) mg/dL Estim Creat Clear Calc 30.9 Estimated GFR 45 Random Glucose 99 (60-115) mg/dL Lactic Acid 1.1 (0.5-2.0) mmol/L Calcium 10.2 D (8.4-10.2) mg/dL Magnesium 1.7 (1.6-2.6) mg/dL Total Bilirubin 0.7 (0.0-1.0) mg/dL AST 20 (5-31) U/L ALT 13 (0-31) U/L Alkaline Phosphatase 76 (39-117) U/L Total Protein 6.6 (6.5-8.0) g/dL Albumin 3.8 (3.5-5.0) g/dL Urine Color Yellow Urine Appearance Cloudy Urine pH 8.0 (5.0-9.0) Ur Specific Josephine 1.010 (1.005-1.025) Urine Protein Trace (Neg-Trace) mg/dL Urine Glucose (UA) Negative (Negative) mg/dL Urine Ketones Negative (Negative) mg/dL Urine Blood Small (1+) H (Negative) Urine Nitrite Negative (Negative) Ur Leukocyte Esterase Large (3+) H (Negative) Urine RBC 6-10 H (0-2) /HPF Urine WBC >50 H (0-5) /HPF Ur Squamous Epith Cells 0-2 (0-2) /HPF Urine Bacteria 4+ (None Seen) Hyaline Casts 0-2 (0-2) /LPF Radiology Impression Discussion of test interpretation with radiology: I have reviewed the radiologist's reading. Discharge Plan Discharge Clinical Impression: Confusion, Recurrent UTI, Weakness, Fall at group home Patient Disposition: Admitted As Inpatient Interventions: Admission Worksheet (ED) Last Done: 02/09/25 14:43 Discharge Date/Time: 02/09/25 15:40
[2025-02-08 22:12] VITALS: BP 171/66; PULSE 78; RESP 18; TEMP 36.7; O2SAT 98
[2025-02-09] VITALS (9 sets, daily range): BP systolic 135–182; BP diastolic 45–84; PULSE 78–101; RESP 14–18; TEMP 36–36.6; O2SAT 92–98; BMI 30.6
--- NOTE | 2025-02-09 00:20 | HO.NURTONUR ---
Pt was found wandering in [place] road near [place]. Staff report that this happens when the patient gets a UTI. Pt sustained multiple falls recently and was being treated for a UTI. Pt is weak and unsteady and a fall risk. Pt is alert to self and place but confused to situation and date. Pt has bump on back of head and bruising to left shoulder. Pt able to move left arm without issue. Brain CT negative, Cervical CT: no acute fx or dislocations. BUN elevated at 26. Pt + for UTI with culture pending. LAC IV in place and pt received IV abx PMH: dementia with agitation, HTN, hypothyroidism, HLD, recurrent urinary tract infections, DVT
--- NOTE | 2025-02-09 00:32 | PM.IMHP ---
History of Present Illness Date of Service: 02/09/25 Chief Complaint: ams 89-year-old female with a past medical history of hypertension, hypothyroidism, recurrent UTI, dementia, assisted living resident; presented to the hospital with a chief complaint of confusion. Patient is alert and awake, confused, lying in the bed comfortably. Most of the history obtained from the records and the staff. Reportedly patient being treated for UTI at the assisted living facility; patient eloped from the assisted living facility and was found on the streets by the EMS and brought her to the hospital for further evaluation. Review of all other systems is limited. ER course: Per ER team, patient was alert and awake, mildly agitated; given Zyprexa; patient reportedly had recurrent falls; CT head and CT C-spine showed acute findings; exam was nonfocal; urinalysis abnormal consistent with UTI. Given ceftriaxone. [facility] Medical History (Updated 02/08/25 @ 22:40 by CROBIN Berg) Dementia with agitation Aggressive behavior Hiatal hernia History of DVT (deep vein thrombosis) HTN (hypertension) Hypothyroid Recurrent UTI HLD (hyperlipidemia) Dementia Surgical History History of ankle surgery H/O colonoscopy Social History Household Members: Unknown / Unable to assess Housing: Unknown / Unable to assess Housing Other:: [place] Are you a primary lawn care technician to a significant other at home: No Do you presently have visiting nurse or other home services: Yes Alcohol intake: former Patient Tobacco Use Status: Former Tobacco user Tobacco use type: Cigarette e-Cigarette/Vaping Use: Former Use Advance Directives Date on File: 04/19/24 service: No Meds Allergies Allergy/AdvReac Type Severity Reaction Status Date / Time No Known Allergies Allergy Verified 02/08/25 17:49 Active Medications: Current Medications Acetaminophen (Acetaminophen 325 Mg Tablet) 650 mg PO Q6H PRN PRN Reason: Pain, Mild 1-3,fever,headache Calcium Carbonate (Calcium Carbonate 750 Mg Tab.Chew) 750 mg PO Q4H PRN PRN Reason: Heartburn Ceftriaxone Sodium (Ceftriaxone Sodium 1 Gm Vial) 1 gm IVPUSH Q24H NESS Heparin Sodium (Porcine) (Heparin Sodium,Porcine 5,000 Unit/Ml Vial) 5,000 unit SUBCUT Q12H [facility] Lactated Ringer's (Lr) 1,000 mls @ 50 mls/hr IVCONT .Q20H [facility] Magnesium Hydroxide (Milk Of Magnesia 30 Ml Oral.Susp) 30 ml PO DAILY PRN PRN Reason: Constipation Melatonin (Melatonin 3 Mg Tablet) 6 mg PO BEDTIME PRN PRN Reason: Insomnia Polyethylene Glycol (Polyethylene Glycol 3350 17 Gm Powd.Pack) 17 gm PO DAILY PRN PRN Reason: Constipation Sodium Chloride (0.9 % Sodium Chloride Flush 3 Ml Syringe) 3 ml IVFLUSH QSHIFT [facility] Home Medications ?Medication ?Instructions ?Recorded ?Confirmed ?Last Taken ?Type ascorbic acid (vitamin C) 250 mg 250 mg PO DAILY 11/13/24 02/09/25 Unknown History tablet (Vitamin C) aspirin 81 mg tablet,delayed 81 mg PO DAILY 11/13/24 02/09/25 11/12/24 History release atorvastatin 40 mg tablet 40 mg PO BEDTIME 11/13/24 02/09/25 Unknown History cholecalciferol (vitamin D3) 50 50 mcg PO DAILY 11/13/24 02/09/25 Unknown History mcg (2,000 unit) capsule (Vitamin D3) hydrochlorothiazide 12.5 mg tablet 12.5 mg PO DAILY 11/13/24 02/09/25 Unknown History levothyroxine 50 mcg tablet 50 mcg PO DAILY@0600 11/13/24 02/09/25 Unknown History lisinopril 10 mg tablet 15 mg PO DAILY 11/13/24 02/09/25 Unknown History sertraline 50 mg tablet 75 mg PO DAILY 11/13/24 02/09/25 Unknown History magnesium hydroxide 400 mg/5 mL 30 ml PO DAILY PRN Constipation 11/14/24 02/09/25 Unknown History oral suspension (Milk of Magnesia) melatonin 3 mg tablet 6 mg PO BEDTIME 11/14/24 02/09/25 Unknown History rivaroxaban 20 mg tablet (Xarelto) 20 mg PO DAILY@0730 11/14/24 02/09/25 11/12/24 History Held on 11/17/24. Instructions: Resume on 11/23/24. sennosides 8.6 mg tablet (senna) 8.6 mg PO BID PRN Constipation 11/14/24 02/09/25 Unknown History ferrous gluconate 324 mg (38 mg 324 mg PO DAILY 12/13/24 02/09/25 Unknown History iron) tablet quetiapine 50 mg tablet 50 mg PO TID@0700,1200,1600 12/13/24 02/09/25 Unknown History trazodone 50 mg tablet 12.5 mg PO DAILY@1600 12/13/24 02/09/25 Unknown History zinc oxide 13 % topical cream 1 appl topical BID 12/13/24 02/09/25 Unknown History (Desitin Daily Defense) Lactobacillus acidophilus 500 500 mmu cells PO DAILY 02/09/25 02/09/25 Unknown History million cell capsule cephalexin 250 mg tablet 250 mg PO MOWEFR 02/09/25 02/09/25 Unknown History cholecalciferol (vitamin D3) 1,250 1,250 mcg PO QMONTH 02/09/25 02/09/25 Unknown History mcg (50,000 unit) tablet loperamide 2 mg tablet 2 mg PO Q6H PRN Loose Stool 02/09/25 02/09/25 Unknown History omeprazole 20 mg capsule,delayed 20 mg PO BID@0630,1630 02/09/25 02/09/25 Unknown History release Physical Exam Vital Signs and Narrative: Vital Signs: Last Vital Signs Temp 98.0 F 02/08/25 22:12 Pulse 78 02/08/25 22:12 Resp 18 02/08/25 22:12 BP 171/66 H 02/08/25 22:12 Pulse Ox 98 02/08/25 22:12 O2 Del Method Room Air 02/08/25 22:12 BMI result Body Mass Index 33.1 Gen: Appears be in no acute distress HEENT: NCAT, Moist mucosa. Pulmonary: Vesicular breath sounds, fair air entry CVS: Normal S1-S2 Abdomen: BS+, Soft, Nontender Extremities: Warm well perfused Neuro: Alert and awake. Results Labs 02/11/25 05:59 02/11/25 05:59 Labs: Laboratory Results - last 24 hr 02/08/25 02/08/25 02/08/25 19:42 19:57 22:07 MCV 87.5 MCH 28.4 MCHC 32.4 RDW 14.6 Plt Count 192 D MPV 10.6 Immature Gran % (Auto) 0.4 Neut % (Auto) 74.0 H Lymph % (Auto) 16.8 L [place] % (Auto) 6.2 Eos % (Auto) 2.0 Baso % (Auto) 0.6 Lymph # (Auto) 1.3 [place] # (Auto) 0.5 Eos # (Auto) 0.2 Baso # (Auto) 0.1 Abs Immat Gran (auto) 0.03 Absolute Neuts (auto) 5.8 Absolute Nucleated RBC 0.000 Nucleated RBC % (auto) 0.0 PT 13.3 H INR 1.2 H APTT 30.3 Anion Gap 11 L Estim Creat Clear Calc 30.9 Estimated GFR 45 Random Glucose 99 Lactic Acid 1.1 Calcium 10.2 D Magnesium 1.7 Total Bilirubin 0.7 AST 20 ALT 13 Alkaline Phosphatase 76 Total Protein 6.6 Albumin 3.8 Urine Color Yellow Urine Appearance Cloudy Urine pH 8.0 Ur Specific [place] 1.010 Urine Protein Trace Urine Glucose (UA) Negative Urine Ketones Negative Urine Blood Small (1+) H Urine Nitrite Negative Ur Leukocyte Esterase Large (3+) H Urine RBC 6-10 H Urine WBC >50 H Ur Squamous Epith Cells 0-2 Urine Bacteria 4+ Hyaline Casts 0-2 Assessment and Plan (1) Recurrent UTI: Status: Acute Plan 89-year-old female with a past medical history of hypertension, hypothyroidism, recurrent UTI, dementia, assisted living resident; presented to the hospital with a chief complaint of confusion. Delirium: UTI: Continue ceftriaxone Follow-up cultures Delirium precautions Fall: CT head and CT C-spine showed no acute findings. Reportedly patient had recurrent falls. PT/OT and ready for discharge. Hypothyroidism: Continue home levothyroxine DVT prophylaxis: SubQ heparin Code status: Full code Quality Stroke Does the patient have a stroke diagnosis?: No VTE Prior VTE?: No VTE Risk Level:: Medical - moderate - high VTE Device Contraindication: Treatment Not Indicated VTE Drug Contraindication: N/A - Med Ordered
[2025-02-09] MEDS: OLANZapine 10 MG VIAL IM ×3 (00:38→15:21)
--- NOTE | 2025-02-09 00:39 | PC.NURSE ---
Versed given, overridden from pyxis for 5mg/ml vial by [employer] Ariza. Unable to scan barcode
[2025-02-09] MEDS: Lactated Ringers 1,000 ML 50 ML IVCONT (00:54)
[2025-02-09 09:00] LABS: MANUAL DIFF FLAG NO
[2025-02-09 09:02] LABS: Hematocrit 36.6 % (37.0-47.0); Hemoglobin 11.9 g/dl (12.0-16.0); Imm Gran Abs Auto 0.02 X10*3/uL (0.00-0.03); Imm Gran Pct Auto 0.3 % (0.0-0.4); Lymphocytes Absolute Auto 0.8 X10*3/uL (1.2-4.9); Mean Corpuscular HGB Conc 32.5 g/dl (31.0-35.0); Mean Corpuscular Hemoglobin 29.0 pg (27.0-33.0); Mean Corpuscular Volume 89.3 fL (80.0-98.0); NRBC Abs Auto 0.000 X10*3/uL (0.0-0.012); NRBC Pct Auto 0.0 /100WBC (0.0-0.2); Platelet Count 190 X10*3/uL (160-400); Red Blood Count 4.10 X10*6/uL (4.20-5.50); White Blood Count 6.9 X10*3/uL (4.8-10.8)
[2025-02-09 09:18] LABS: Anion Gap 11 (12-20); Blood Urea Nitrogen 22 mg/dL (9-16); Calcium 10.2 mg/dL (8.4-10.2); Carbon Dioxide 27 mmol/L (22-29); Chloride 109 mmol/L (96-108); Creatinine Clr Calc Pharmacy 30.9; Estimated Glomerular Filt Rate 45; Potassium 4.3 mmol/L (3.3-5.1); Sodium 143 mmol/L (135-145)
--- NOTE | 2025-02-09 10:33 | HO.PM.IMPN ---
Subjective Subjective Date of Service: 02/09/25 Interval History: no complaints Physical Exam Exam: Exam: alert, oriented to person and place, inexact on time, poor insight, tangental Vital Signs: Vital Signs: Last Vital Signs Temp 96.8 F 02/09/25 08:00 Pulse 86 02/09/25 08:00 Resp 16 02/09/25 08:00 BP 145/79 H 02/09/25 08:00 Pulse Ox 94 02/09/25 08:00 O2 Del Method Room Air 02/09/25 08:00 BMI result Body Mass Index 33.1 Objective Data Active Medications Acetaminophen (Acetaminophen 325 Mg Tablet) 650 mg PO Q6H PRN PRN Reason: Pain, Mild 1-3,fever,headache Calcium Carbonate (Calcium Carbonate 750 Mg Tab.Chew) 750 mg PO Q4H PRN PRN Reason: Heartburn Ceftriaxone Sodium (Ceftriaxone Sodium 1 Gm Vial) 1 gm IVPUSH BEDTIME NESS Heparin Sodium (Porcine) (Heparin Sodium,Porcine 5,000 Unit/Ml Vial) 5,000 unit SUBCUT Q12H [facility] Lactated Ringer's (Lr) 1,000 mls @ 50 mls/hr IVCONT .Q20H [facility] Last Admin: 02/09/25 00:54 Dose: 50 mls/hr Documented By: MONY Magnesium Hydroxide (Milk Of Magnesia 30 Ml Oral.Susp) 30 ml PO DAILY PRN PRN Reason: Constipation Melatonin (Melatonin 3 Mg Tablet) 6 mg PO BEDTIME PRN PRN Reason: Insomnia Polyethylene Glycol (Polyethylene Glycol 3350 17 Gm Powd.Pack) 17 gm PO DAILY PRN PRN Reason: Constipation Sodium Chloride (0.9 % Sodium Chloride Flush 3 Ml Syringe) 3 ml IVFLUSH QSHIFT [facility] Last Admin: 02/09/25 07:04 Dose: Not Given Documented By: LORRAINE Non-Admin Reason: IV Running Labs 02/09/25 08:51 02/09/25 08:51 Labs: Laboratory Results - last 24 hr 02/08/25 02/08/25 02/08/25 19:42 19:57 22:07 MCV 87.5 MCH 28.4 MCHC 32.4 RDW 14.6 Plt Count 192 D MPV 10.6 Immature Gran % (Auto) 0.4 Neut % (Auto) 74.0 H Lymph % (Auto) 16.8 L [place] % (Auto) 6.2 Eos % (Auto) 2.0 Baso % (Auto) 0.6 Lymph # (Auto) 1.3 [place] # (Auto) 0.5 Eos # (Auto) 0.2 Baso # (Auto) 0.1 Abs Immat Gran (auto) 0.03 Absolute Neuts (auto) 5.8 Absolute Nucleated RBC 0.000 Nucleated RBC % (auto) 0.0 PT 13.3 H INR 1.2 H APTT 30.3 Anion Gap 11 L Estim Creat Clear Calc 30.9 Estimated GFR 45 Random Glucose 99 Lactic Acid 1.1 Calcium 10.2 D Magnesium 1.7 Total Bilirubin 0.7 AST 20 ALT 13 Alkaline Phosphatase 76 Total Protein 6.6 Albumin 3.8 Urine Color Yellow Urine Appearance Cloudy Urine pH 8.0 Ur Specific [place] 1.010 Urine Protein Trace Urine Glucose (UA) Negative Urine Ketones Negative Urine Blood Small (1+) H Urine Nitrite Negative Ur Leukocyte Esterase Large (3+) H Urine RBC 6-10 H Urine WBC >50 H Ur Squamous Epith Cells 0-2 Urine Bacteria 4+ Hyaline Casts 0-2 02/09/25 08:51 MCV 89.3 MCH 29.0 MCHC 32.5 RDW 14.7 Plt Count 190 MPV 10.9 Immature Gran % (Auto) 0.3 Neut % (Auto) 78.1 H Lymph % (Auto) 12.2 L [place] % (Auto) 5.8 Eos % (Auto) 3.0 Baso % (Auto) 0.6 Lymph # (Auto) 0.8 L [place] # (Auto) 0.4 Eos # (Auto) 0.2 Baso # (Auto) 0.0 Abs Immat Gran (auto) 0.02 Absolute Neuts (auto) 5.4 Absolute Nucleated RBC 0.000 Nucleated RBC % (auto) 0.0 PT INR APTT Anion Gap 11 L Estim Creat Clear Calc 30.9 Estimated GFR 45 Random Glucose 147 H Lactic Acid Calcium 10.2 Magnesium Total Bilirubin AST ALT Alkaline Phosphatase Total Protein Albumin Urine Color Urine Appearance Urine pH Ur Specific [place] Urine Protein Urine Glucose (UA) Urine Ketones Urine Blood Urine Nitrite Ur Leukocyte Esterase Urine RBC Urine WBC Ur Squamous Epith Cells Urine Bacteria Hyaline Casts Assessment and Plan (1) Confusion: Status: Acute Plan 89F PMH hypertension, hypothyroid, recurrent UTI, dementia, sent in from assisted living resident after being found wandering and confused Acute metabolic encephalopathy due to recurrent UTI Continue ceftriaxone, follow up cultures Hypothyroid Levothyroxine History of bleeding gastric AVM PPI DVT prophylaxis with heparin subQ Full code reason for continued hospitalization: Cultures pending Quality Stroke Does the patient have a stroke diagnosis?: No VTE Prior VTE?: No VTE Risk Level:: Medical - moderate - high VTE Device Contraindication: Treatment Not Indicated VTE Drug Contraindication: N/A - Med Ordered
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
--- NOTE | 2025-02-09 14:02 | PHA.MEDREC ---
Addendum entered by Cedric Toure PharmD 02/09/25 14:04: reviewed Original Note: Pharmacy Consult ? Medication Reconciliation Pharmacy has completed the medication reconciliation. Utilized claims and list from facility to confirm med rec.
--- NOTE | 2025-02-09 14:25 | PC.NURSE ---
Pt up oob to use bathroom- 1 assist with walker, steady gait. Pt verbally aggressive towards staff, accusing staff of pushing/shoving her. Pt educated on need to assist patient while walking for safe transfer. Pt agitation increasing towards this RN and AUDITOR APPRAISER. MD Jarrett made aware- additional IM Zyprexa order obtained d/t increasing agitation. Pt able to be safely redirected back into bed- no IM medication needed d/t being able to redirect patient. 1:1 sitter remains at bedside for safety.
--- NOTE | 2025-02-09 14:51 | PC.NURSE ---
Pt IV fluids paused d/t increased aggression/pulling at IV and IV tubing. Pause reflected in MAR @ 1230, aware. Pt uncooperative with staff, unwilling to allow this RN to restart fluids.
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
--- NOTE | 2025-02-09 15:50 | PC.NURSE ---
Pt arrived to unit in bed escorted by security, at this time pt is trying to get out of bed. Pt reassured and educated on risk for falls. Pt preceded to unwrap and pull IV out and throw it on the floor, this RN attempted to redirect pt but she began to scratch and swear at this RN. MD Jarrett made aware, no new orders at this time. Pt is resting in bed, refusing assessments and vital signs. 1:1 sitter is in room for safety fall risk measures in place.
--- NOTE | 2025-02-09 16:56 | PC.NURSE ---
Pt asking to use bathroom upon entering the room pt confused but pleasant and cooperative with care. Pt is able to stand pivot to beside commode with 1-2A. Was able to void. Pt endorsing headache, Tylenol and 1600 meds given. All safety measures in place.
[2025-02-10 04:00] VITALS: BP 158/62; PULSE 88; RESP 18; TEMP 36.8; O2SAT 98
[2025-02-10] MEDS: 0.9 % Sodium Chloride Flush 3 ML SYRINGE IVFLUSH ×4 (04:30→20:53)
[2025-02-10 06:18] LABS: Anion Gap 10 (12-20); Blood Urea Nitrogen 16 mg/dL (9-16); Calcium 10.4 mg/dL (8.4-10.2); Carbon Dioxide 25 mmol/L (22-29); Chloride 111 mmol/L (96-108); Creatinine Clr Calc Pharmacy 32.9; Estimated Glomerular Filt Rate 50; Potassium 4.1 mmol/L (3.3-5.1); Sodium 142 mmol/L (135-145)
[2025-02-10 06:47] LABS: Hematocrit 35.3 % (37.0-47.0); Hemoglobin 10.9 g/dl (12.0-16.0); Mean Corpuscular HGB Conc 30.9 g/dl (31.0-35.0); Mean Corpuscular Hemoglobin 28.1 pg (27.0-33.0); Mean Corpuscular Volume 91.0 fL (80.0-98.0); NRBC Abs Auto 0.000 X10*3/uL (0.0-0.012); NRBC Pct Auto 0.0 /100WBC (0.0-0.2); Platelet Count 179 X10*3/uL (160-400); Red Blood Count 3.88 X10*6/uL (4.20-5.50); White Blood Count 5.9 X10*3/uL (4.8-10.8)
[2025-02-10 07:25] VITALS: BP 145/67; PULSE 75; RESP 15; TEMP 36.2; O2SAT 95
--- NOTE | 2025-02-10 09:29 | HO.PM.IMPN ---
Subjective Subjective Date of Service: 02/10/25 Interval History: was very agitated yesterday afternoon, now calm Physical Exam Exam: Exam: alert, oriented to person and place, inexact on time, poor insight, tangental Vital Signs: Vital Signs: Last Vital Signs Temp 97.2 F 02/10/25 07:25 Pulse 75 02/10/25 07:25 Resp 15 02/10/25 07:25 BP 145/67 H 02/10/25 07:25 Pulse Ox 95 02/10/25 07:25 O2 Del Method Room Air 02/10/25 07:25 BMI result Body Mass Index 30.6 Objective Data Active Medications Acetaminophen (Acetaminophen 325 Mg Tablet) 650 mg PO Q6H PRN PRN Reason: Pain, Mild 1-3,fever,headache Last Admin: 02/10/25 06:20 Dose: 650 mg Documented By: ABDIEL Ascorbic Acid (Ascorbic Acid 250 Mg Tablet) 250 mg PO DAILY [facility] Aspirin (Aspirin Enteric Coated 81 Mg Tablet.) 81 mg PO DAILY [facility] Atorvastatin Calcium (Atorvastatin Calcium 40 Mg Tablet) 40 mg PO BEDTIME [facility] Last Admin: 02/09/25 21:23 Dose: 40 mg Documented By: ERASMO Calcium Carbonate (Calcium Carbonate 750 Mg Tab.Chew) 750 mg PO Q4H PRN PRN Reason: Heartburn Levothyroxine Sodium (Levothyroxine Sodium 50 Mcg Tablet) 50 mcg PO DAILY@0600 [facility] Last Admin: 02/10/25 06:12 Dose: 50 mcg Documented By: ABDIEL Lisinopril (Lisinopril 5 Mg Tablet) 15 mg PO DAILY [facility]; Protocol Magnesium Hydroxide (Milk Of Magnesia 30 Ml Oral.Susp) 30 ml PO DAILY PRN PRN Reason: Constipation Melatonin (Melatonin 3 Mg Tablet) 6 mg PO BEDTIME PRN PRN Reason: Insomnia Melatonin (Melatonin 3 Mg Tablet) 6 mg PO BEDTIME [facility] Last Admin: 02/09/25 21:24 Dose: 6 mg Documented By: ERASMO Meropenem (Meropenem 1 Gm Vial) 1 gm IVPUSH Q8H [facility] Olanzapine (Olanzapine 5 Mg Tablet) 5 mg PO Q4H PRN PRN Reason: agitation Olanzapine (Olanzapine 10 Mg Vial) 10 mg IM Q12H PRN PRN Reason: severe agitation Omeprazole (Omeprazole 20 Mg Capsule.) 20 mg PO BID@0630,1630 [facility] Last Admin: 02/10/25 05:33 Dose: Not Given Documented By: ABDIEL Non-Admin Reason: Duplicate Order Polyethylene Glycol (Polyethylene Glycol 3350 17 Gm Powd.Pack) 17 gm PO DAILY PRN PRN Reason: Constipation Quetiapine Fumarate (Quetiapine Fumarate 50 Mg Tablet) 50 mg PO TID@0700,1200,1600 [facility] Last Admin: 02/10/25 06:12 Dose: 50 mg Documented By: ABDIEL Rivaroxaban (Rivaroxaban 20 Mg Tablet) 20 mg PO DAILY@0730 [facility] Last Admin: 02/10/25 09:04 Dose: 20 mg Documented By: RAY Sertraline HCl (Sertraline Hcl 25 Mg Tablet) 75 mg PO DAILY [facility] Sodium Chloride (0.9 % Sodium Chloride Flush 3 Ml Syringe) 3 ml IVFLUSH QSHIFT [facility] Last Admin: 02/10/25 09:04 Dose: 3 ml Documented By: RAY Trazodone HCl (Trazodone Hcl 50 Mg Tablet) 12.5 mg PO DAILY@1600 [facility] Last Admin: 02/09/25 16:53 Dose: 12.5 mg Documented By: ALBAN Comments: pt agreeable at this time Vitamin D (Cholecalciferol (Vitamin D3) 25 Mcg Tablet) 50 mcg PO DAILY [facility] Zinc Oxide (Zinc Oxide 20% Ointment 28.35 Gm Tube) 1 appl TOPICAL BID [facility] Last Admin: 02/09/25 21:35 Dose: 1 appl Documented By: ERASMO Labs 02/10/25 05:35 02/10/25 05:35 Labs: Laboratory Results - last 24 hr 02/10/25 05:35 MCV 91.0 MCH 28.1 MCHC 30.9 L RDW 14.8 Plt Count 179 MPV 11.4 Absolute Nucleated RBC 0.000 Nucleated RBC % (auto) 0.0 Anion Gap 10 L Estim Creat Clear Calc 32.9 Estimated GFR 50 Random Glucose 95 Calcium 10.4 H Microbiology Microbiology Results: Microbiology 02/08/25 Unknown Urine Culture - Preliminary Urine clean catch - Clean Catch Midstream Klebsiella pneumoniae 02/08/25 22:07 Blood Culture - Preliminary Blood - Venous No growth after 24 hours. 02/08/25 22:07 Blood Culture - Preliminary Blood - Venous No growth after 24 hours. Assessment and Plan (1) Confusion: Status: Acute Plan 89F PMH hypertension, hypothyroid, recurrent UTI, dementia, sent in from assisted living resident after being found wandering and confused Acute metabolic encephalopathy due to recurrent UTI urine culture esbl klebsiella change to meropenem Hypothyroid Levothyroxine History of bleeding gastric AVM PPI DVT prophylaxis with heparin subQ Full code reason for continued hospitalization: ams, esbl Quality Stroke Does the patient have a stroke diagnosis?: No VTE Prior VTE?: No VTE Risk Level:: Medical - moderate - high VTE Device Contraindication: Treatment Not Indicated VTE Drug Contraindication: N/A - Med Ordered
--- NOTE | 2025-02-10 11:14 | MHC.CM.PN ---
pt from [facility] will like;y need rehab for iv antibiotics will be here over the w/e referrals made pcp is dr brown /keira
--- NOTE | 2025-02-10 11:32 | P.CDIM_ITS ---
PROVIDER RESPONSE TEXT: To clarify, the appropriate diagnosis supported by the clinical indicators: Baseline dementia: alzhiemer QUERY TEXT: PHYSICIAN'S DOCUMENTATION REQUEST Date of Query: 02/10/2025 11:19 AM EDT Patient Name: Lashaun Turpin Admit Date: 02/09/2025 Dear Hay Jarrett MD, A review of the medical record indicates additional documentation may be needed. Please review below and update the documentation accordingly. Clinical Indicators: ED: History of Dementia with agitation. H&P 02/09/25 - Assisted living, presented with confusion. Patient eloped from the assisted living facility and was found on the streets, wandering, poor insight, tangential, inexact of time, recurrent falls. Based on the above, could you provide any further specifics to the documented Dementia for this patient? Dementia Indicate type of dementia, such as Alzheimer's, senile, vascular, Lewy body, etc. Baseline dementia Indicate type, such as Alzheimer's, senile, vascular, Lewy body, etc., and any associated behavioral disturbances (aggressive, combative, or violent behavior) Acute or subacute confusional state due to Specify known or suspected etiology Other (explain) Clinically unable to determine (explain) Thank you, Gricelda Miranda, CCS, CDIS Use of terms such as suspected, likely, concern for, or probable (associated with a specific diagnosis that is being evaluated, monitored, or treated as if it exists) are acceptable and can be coded in the inpatient setting, when documented at the time of discharge. Please use your independent medical judgment in providing your response. THIS QUERY IS PART OF THE PERMANENT MEDICAL RECORD
[2025-02-10 12:01] VITALS: BP 120/54
--- NOTE | 2025-02-10 14:58 | PC.NURSE ---
Pt bp 72/40 manually at 1038, pt drowsy but responding to voice, MD Jarrett made aware. Fluid bolus order, pt BP 120/54 after bolus.
[2025-02-10 15:32] VITALS: BP 116/63; PULSE 91; RESP 16; TEMP 36.6; O2SAT 94
[2025-02-10 19:35] VITALS: BP 150/67; PULSE 97; RESP 18; TEMP 36.7; O2SAT 95
[2025-02-11 03:52] VITALS: BP 113/57; PULSE 95; RESP 18; TEMP 36.3; O2SAT 94
[2025-02-11 06:36] LABS: Hematocrit 32.3 % (37.0-47.0); Hemoglobin 9.9 g/dl (12.0-16.0); Mean Corpuscular HGB Conc 30.7 g/dl (31.0-35.0); Mean Corpuscular Hemoglobin 28.1 pg (27.0-33.0); Mean Corpuscular Volume 91.8 fL (80.0-98.0); NRBC Abs Auto 0.000 X10*3/uL (0.0-0.012); NRBC Pct Auto 0.0 /100WBC (0.0-0.2); Platelet Count 172 X10*3/uL (160-400); Red Blood Count 3.52 X10*6/uL (4.20-5.50); White Blood Count 7.4 X10*3/uL (4.8-10.8)
[2025-02-11 06:54] VITALS: BP 122/64; PULSE 74; RESP 18; TEMP 36.7; O2SAT 96
[2025-02-11 07:09] LABS: Anion Gap 9 (12-20); Blood Urea Nitrogen 23 mg/dL (9-16); Carbon Dioxide 25 mmol/L (22-29); Chloride 113 mmol/L (96-108); Creatinine Clr Calc Pharmacy 28.7; Estimated Glomerular Filt Rate 43; Magnesium 1.7 mg/dL (1.6-2.6); Potassium 4.4 mmol/L (3.3-5.1); Sodium 143 mmol/L (135-145)
[2025-02-11 07:18] LABS: Calcium 9.0 mg/dL (8.4-10.2)
[2025-02-11] MEDS: 0.9 % Sodium Chloride Flush 3 ML SYRINGE IVFLUSH ×3 (08:24→20:10)
[2025-02-11] MEDS: Aspirin Enteric Coated 81 MG TABLET.DR PO (08:24)
--- NOTE | 2025-02-11 09:14 | P.PNIM_ITS ---
Subjective Subjective Date of Service: 02/11/25 Interval History: behaviours much better today Physical Exam 2 Exam: Exam: alert, oriented to person and place, inexact on time, poor insight, tangental Vital Signs: Vital Signs: Last Vital Signs Temp 98.1 F 02/11/25 06:54 Pulse 74 02/11/25 06:54 Resp 18 02/11/25 06:54 BP 122/64 02/11/25 06:54 Pulse Ox 96 02/11/25 06:54 O2 Del Method Room Air 02/11/25 06:54 BMI result Body Mass Index 30.6 Objective Data Active Medications Acetaminophen (Acetaminophen 325 Mg Tablet) 650 mg PO Q6H PRN PRN Reason: Pain, Mild 1-3,fever,headache Last Admin: 02/10/25 06:20 Dose: 650 mg Documented By: ABDIEL Ascorbic Acid (Ascorbic Acid 250 Mg Tablet) 250 mg PO DAILY [facility] Last Admin: 02/11/25 08:24 Dose: 250 mg Documented By: [place] Aspirin (Aspirin Enteric Coated 81 Mg Tablet.) 81 mg PO DAILY [facility] Last Admin: 02/11/25 08:24 Dose: 81 mg Documented By: [place] Atorvastatin Calcium (Atorvastatin Calcium 40 Mg Tablet) 40 mg PO BEDTIME [facility] Last Admin: 02/10/25 20:53 Dose: 40 mg Documented By: JENI Calcium Carbonate (Calcium Carbonate 750 Mg Tab.Chew) 750 mg PO Q4H PRN PRN Reason: Heartburn Levothyroxine Sodium (Levothyroxine Sodium 50 Mcg Tablet) 50 mcg PO DAILY@0600 [facility] Last Admin: 02/11/25 06:09 Dose: 50 mcg Documented By: JENI Lisinopril (Lisinopril 5 Mg Tablet) 15 mg PO DAILY [facility]; Protocol Last Admin: 02/10/25 10:56 Dose: Not Given Documented By: RAY Non-Admin Reason: pt drowsey Magnesium Hydroxide (Milk Of Magnesia 30 Ml Oral.Susp) 30 ml PO DAILY PRN PRN Reason: Constipation Melatonin (Melatonin 3 Mg Tablet) 6 mg PO BEDTIME PRN PRN Reason: Insomnia Melatonin (Melatonin 3 Mg Tablet) 6 mg PO BEDTIME [facility] Last Admin: 02/10/25 20:53 Dose: 6 mg Documented By: JENI Meropenem (Meropenem 1 Gm Vial) 1 gm IVPUSH Q12H [facility] Last Admin: 02/10/25 21:54 Dose: 1 gm Documented By: JENI Olanzapine (Olanzapine 5 Mg Tablet) 5 mg PO Q4H PRN PRN Reason: agitation Olanzapine (Olanzapine 10 Mg Vial) 10 mg IM Q12H PRN PRN Reason: severe agitation Omeprazole (Omeprazole 20 Mg Capsule.Dr) 20 mg PO BID@0630,1630 [facility] Last Admin: 02/11/25 06:09 Dose: 20 mg Documented By: JENI Polyethylene Glycol (Polyethylene Glycol 3350 17 Gm Powd.Pack) 17 gm PO DAILY PRN PRN Reason: Constipation Quetiapine Fumarate (Quetiapine Fumarate 50 Mg Tablet) 50 mg PO TID@0700,1200,1600 [facility] Last Admin: 02/11/25 06:09 Dose: 50 mg Documented By: JENI Rivaroxaban (Rivaroxaban 20 Mg Tablet) 20 mg PO DAILY@0730 [facility] Last Admin: 02/11/25 08:24 Dose: 20 mg Documented By: [place] Sertraline HCl (Sertraline Hcl 25 Mg Tablet) 75 mg PO DAILY [facility] Last Admin: 02/11/25 08:24 Dose: 75 mg Documented By: [place] Sodium Chloride (0.9 % Sodium Chloride Flush 3 Ml Syringe) 3 ml IVFLUSH QSHIFT [facility] Last Admin: 02/11/25 08:24 Dose: 3 ml Documented By: [place] Trazodone HCl (Trazodone Hcl 50 Mg Tablet) 12.5 mg PO DAILY@1600 [facility] Last Admin: 02/10/25 16:14 Dose: Not Given Documented By: RAY Non-Admin Reason: Physician Held Med Vitamin D (Cholecalciferol (Vitamin D3) 25 Mcg Tablet) 50 mcg PO DAILY [facility] Last Admin: 02/11/25 08:24 Dose: 50 mcg Documented By: [place] Zinc Oxide (Zinc Oxide 20% Ointment 28.35 Gm Tube) 1 appl TOPICAL BID [facility] Last Admin: 02/10/25 21:56 Dose: 1 appl Documented By: JENI Labs 02/11/25 05:59 02/11/25 05:59 Labs: Laboratory Results - last 24 hr 02/11/25 05:59 MCV 91.8 MCH 28.1 MCHC 30.7 L RDW 14.8 Plt Count 172 MPV 11.0 Absolute Nucleated RBC 0.000 Nucleated RBC % (auto) 0.0 Anion Gap 9 L Estim Creat Clear Calc 28.7 Estimated GFR 43 Random Glucose 109 Calcium 9.0 D Magnesium 1.7 Microbiology Microbiology Results: Microbiology 02/08/25 Unknown Urine Culture - Final Urine clean catch - Clean Catch Midstream Klebsiella pneumoniae 02/08/25 22:07 Blood Culture - Preliminary Blood - Venous No growth after 48 hours. 02/08/25 22:07 Blood Culture - Preliminary Blood - Venous No growth after 48 hours. Assessment and Plan (1) Confusion: Status: Acute Plan 89F PMH hypertension, hypothyroid, recurrent UTI, dementia, sent in from assisted living resident after being found wandering and confused Acute metabolic encephalopathy due to recurrent UTI urine culture esbl klebsiella change to meropenem, on dc can do bactrim Hypothyroid Levothyroxine History of bleeding gastric AVM PPI DVT prophylaxis with heparin subQ Full code reason for continued hospitalization: dispo planning Quality Stroke Does the patient have a stroke diagnosis?: No VTE Prior VTE?: No VTE Risk Level:: Medical - moderate - high VTE Device Contraindication: Treatment Not Indicated VTE Drug Contraindication: N/A - Med Ordered
[2025-02-11 15:21] VITALS: BP 120/62; PULSE 78; RESP 18; TEMP 36.6; O2SAT 96
[2025-02-11] MEDS: traZODone HCL 25 MG HALFTAB 12.5 MG PO (16:39)
[2025-02-11 20:00] VITALS: BP 149/68; PULSE 84; RESP 18; TEMP 36.4; O2SAT 96
[2025-02-12 03:23] VITALS: BP 146/67; PULSE 66; RESP 18; TEMP 36.2; O2SAT 97
[2025-02-12 08:22] VITALS: BP 132/62; PULSE 64; RESP 18; TEMP 36.8; O2SAT 97
[2025-02-12] MEDS: Aspirin Enteric Coated 81 MG TABLET.DR PO (08:25)
[2025-02-12] MEDS: 0.9 % Sodium Chloride Flush 3 ML SYRINGE IVFLUSH ×3 (08:25→20:46)
--- NOTE | 2025-02-12 08:36 | HO.PM.IMPN ---
Subjective Subjective Date of Service: 02/12/25 Interval History: behaviours continue to improve Physical Exam Exam: Exam: General: AO X 3, no acute distress Resp: CTA bilateral, no accessory muscles used CVS: S1,S2,RRR GI: soft, non tender, non distended Neuro: motor grossly intact, alert Psych: appropriate affect, appropriate insight Vital Signs: Vital Signs: Last Vital Signs Temp 98.2 F 02/12/25 08:22 Pulse 64 02/12/25 08:22 Resp 18 02/12/25 08:22 BP 132/62 02/12/25 08:22 Pulse Ox 97 02/12/25 08:22 O2 Del Method Room Air 02/12/25 08:22 BMI result Body Mass Index 30.6 Objective Data Active Medications Acetaminophen (Acetaminophen 325 Mg Tablet) 650 mg PO Q6H PRN PRN Reason: Pain, Mild 1-3,fever,headache Last Admin: 02/11/25 19:50 Dose: 650 mg Documented By: JENI Ascorbic Acid (Ascorbic Acid 250 Mg Tablet) 250 mg PO DAILY [facility] Last Admin: 02/12/25 08:24 Dose: 250 mg Documented By: [place] Aspirin (Aspirin Enteric Coated 81 Mg Tablet.) 81 mg PO DAILY [facility] Last Admin: 02/12/25 08:25 Dose: 81 mg Documented By: [place] Atorvastatin Calcium (Atorvastatin Calcium 40 Mg Tablet) 40 mg PO BEDTIME [facility] Last Admin: 02/11/25 20:09 Dose: 40 mg Documented By: JENI Calcium Carbonate (Calcium Carbonate 750 Mg Tab.Chew) 750 mg PO Q4H PRN PRN Reason: Heartburn Levothyroxine Sodium (Levothyroxine Sodium 50 Mcg Tablet) 50 mcg PO DAILY@0600 [facility] Last Admin: 02/12/25 05:56 Dose: 50 mcg Documented By: JENI Lisinopril (Lisinopril 5 Mg Tablet) 15 mg PO DAILY [facility]; Protocol On Hold: 02/11/25 09:22 Last Admin: 02/11/25 09:42 Dose: Not Given Documented By: [place] Non-Admin Reason: Physician Held Med Magnesium Hydroxide (Milk Of Magnesia 30 Ml Oral.Susp) 30 ml PO DAILY PRN PRN Reason: Constipation Melatonin (Melatonin 3 Mg Tablet) 6 mg PO BEDTIME PRN PRN Reason: Insomnia Melatonin (Melatonin 3 Mg Tablet) 6 mg PO BEDTIME [facility] Last Admin: 02/11/25 20:09 Dose: 6 mg Documented By: JENI Meropenem (Meropenem 1 Gm Vial) 1 gm IVPUSH Q12H [facility] Last Admin: 02/11/25 21:18 Dose: 1 gm Documented By: JENI Olanzapine (Olanzapine 5 Mg Tablet) 5 mg PO Q4H PRN PRN Reason: agitation Olanzapine (Olanzapine 10 Mg Vial) 10 mg IM Q12H PRN PRN Reason: severe agitation Omeprazole (Omeprazole 20 Mg Capsule.Dr) 20 mg PO BID@0630,1630 [facility] Last Admin: 02/12/25 05:56 Dose: 20 mg Documented By: EJNI Polyethylene Glycol (Polyethylene Glycol 3350 17 Gm Powd.Pack) 17 gm PO DAILY PRN PRN Reason: Constipation Quetiapine Fumarate (Quetiapine Fumarate 50 Mg Tablet) 50 mg PO TID@0700,1200,1600 [facility] Last Admin: 02/12/25 05:56 Dose: 50 mg Documented By: JENI Rivaroxaban (Rivaroxaban 20 Mg Tablet) 20 mg PO DAILY@0730 [facility] Last Admin: 02/12/25 08:25 Dose: 20 mg Documented By: [place] Sertraline HCl (Sertraline Hcl 25 Mg Tablet) 75 mg PO DAILY [facility] Last Admin: 02/12/25 08:24 Dose: 75 mg Documented By: [place] Sodium Chloride (0.9 % Sodium Chloride Flush 3 Ml Syringe) 3 ml IVFLUSH QSHIFT [facility] Last Admin: 02/12/25 08:25 Dose: 3 ml Documented By: [place] Trazodone HCl (Trazodone Hcl 25 Mg Halftab) 12.5 mg PO DAILY@1600 [facility] Last Admin: 02/11/25 16:39 Dose: 12.5 mg Documented By: [place] Vitamin D (Cholecalciferol (Vitamin D3) 25 Mcg Tablet) 50 mcg PO DAILY [facility] Last Admin: 02/12/25 08:25 Dose: 50 mcg Documented By: [place] Zinc Oxide (Zinc Oxide 20% Ointment 28.35 Gm Tube) 1 appl TOPICAL BID [facility] Last Admin: 02/12/25 08:27 Dose: 1 appl Documented By: [place] Labs 02/11/25 05:59 02/11/25 05:59 Microbiology Microbiology Results: Microbiology 02/08/25 Unknown Urine Culture - Final Urine clean catch - Clean Catch Midstream Klebsiella pneumoniae Assessment and Plan (1) Confusion: Status: Acute Plan 89F PMH hypertension, hypothyroid, recurrent UTI, dementia, sent in from assisted living resident after being found wandering and confused Acute metabolic encephalopathy due to recurrent UTI urine culture esbl klebsiella changed to meropenem, on dc can do bactrim Hypothyroid Levothyroxine History of bleeding gastric AVM PPI DVT prophylaxis with heparin subQ Full code reason for continued hospitalization: dispo planning Quality Stroke Does the patient have a stroke diagnosis?: No VTE Prior VTE?: No VTE Risk Level:: Medical - moderate - high VTE Device Contraindication: Treatment Not Indicated VTE Drug Contraindication: N/A - Med Ordered
[2025-02-12 15:37] VITALS: BP 143/74; PULSE 84; RESP 18; TEMP 36.6; O2SAT 94
[2025-02-12] MEDS: traZODone HCL 25 MG HALFTAB 12.5 MG PO (16:05)
[2025-02-12 20:00] VITALS: BP 139/68; PULSE 95; RESP 18; TEMP 36.3; O2SAT 96
[2025-02-13 03:08] VITALS: BP 172/78; PULSE 76; RESP 14; TEMP 36.1; O2SAT 94
[2025-02-13 07:50] VITALS: BP 136/64; PULSE 72; RESP 18; TEMP 36.2; O2SAT 96
[2025-02-13] MEDS: Aspirin Enteric Coated 81 MG TABLET.DR PO (08:08)
[2025-02-13] MEDS: 0.9 % Sodium Chloride Flush 3 ML SYRINGE IVFLUSH (08:08)
--- NOTE | 2025-02-13 08:18 | P.PNIM_ITS ---
Subjective Subjective Date of Service: 02/13/25 Interval History: no complaints Physical Exam 2 Exam: Exam: General: AO X 3, no acute distress Resp: CTA bilateral, no accessory muscles used CVS: S1,S2,RRR GI: soft, non tender, non distended Neuro: motor grossly intact, alert Psych: appropriate affect, appropriate insight Vital Signs: Vital Signs: Last Vital Signs Temp 97.1 F 02/13/25 07:50 Pulse 72 02/13/25 07:50 Resp 18 02/13/25 07:50 BP 136/64 02/13/25 07:50 Pulse Ox 96 02/13/25 07:50 O2 Del Method Room Air 02/13/25 07:50 BMI result Body Mass Index 30.6 Objective Data Active Medications Acetaminophen (Acetaminophen 325 Mg Tablet) 650 mg PO Q6H PRN PRN Reason: Pain, Mild 1-3,fever,headache Last Admin: 02/12/25 20:57 Dose: 650 mg Documented By: JENI Ascorbic Acid (Ascorbic Acid 250 Mg Tablet) 250 mg PO DAILY [facility] Last Admin: 02/13/25 08:08 Dose: 250 mg Documented By: [place] Aspirin (Aspirin Enteric Coated 81 Mg Tablet.Dr) 81 mg PO DAILY [facility] Last Admin: 02/13/25 08:08 Dose: 81 mg Documented By: [place] Atorvastatin Calcium (Atorvastatin Calcium 40 Mg Tablet) 40 mg PO BEDTIME [facility] Last Admin: 02/12/25 20:46 Dose: 40 mg Documented By: JENI Calcium Carbonate (Calcium Carbonate 750 Mg Tab.Chew) 750 mg PO Q4H PRN PRN Reason: Heartburn Levothyroxine Sodium (Levothyroxine Sodium 50 Mcg Tablet) 50 mcg PO DAILY@0600 [facility] Last Admin: 02/13/25 06:01 Dose: 50 mcg Documented By: JENI Lisinopril (Lisinopril 5 Mg Tablet) 15 mg PO DAILY [facility]; Protocol On Hold: 02/11/25 09:22 Last Admin: 02/11/25 09:42 Dose: Not Given Documented By: [place] Non-Admin Reason: Physician Held Med Magnesium Hydroxide (Milk Of Magnesia 30 Ml Oral.Susp) 30 ml PO DAILY PRN PRN Reason: Constipation Melatonin (Melatonin 3 Mg Tablet) 6 mg PO BEDTIME PRN PRN Reason: Insomnia Melatonin (Melatonin 3 Mg Tablet) 6 mg PO BEDTIME [facility] Last Admin: 02/12/25 20:46 Dose: 6 mg Documented By: JENI Meropenem (Meropenem 1 Gm Vial) 1 gm IVPUSH Q12H [facility] Last Admin: 02/12/25 21:33 Dose: 1 gm Documented By: JENI Olanzapine (Olanzapine 5 Mg Tablet) 5 mg PO Q4H PRN PRN Reason: agitation Olanzapine (Olanzapine 10 Mg Vial) 10 mg IM Q12H PRN PRN Reason: severe agitation Omeprazole (Omeprazole 20 Mg Capsule.Dr) 20 mg PO BID@0630,1630 [facility] Last Admin: 02/13/25 06:01 Dose: 20 mg Documented By: JENI Polyethylene Glycol (Polyethylene Glycol 3350 17 Gm Powd.Pack) 17 gm PO DAILY PRN PRN Reason: Constipation Quetiapine Fumarate (Quetiapine Fumarate 50 Mg Tablet) 50 mg PO TID@0700,1200,1600 [facility] Last Admin: 02/13/25 06:01 Dose: 50 mg Documented By: JENI Rivaroxaban (Rivaroxaban 20 Mg Tablet) 20 mg PO DAILY@0730 [facility] Last Admin: 02/13/25 08:07 Dose: 20 mg Documented By: [place] Sertraline HCl (Sertraline Hcl 25 Mg Tablet) 75 mg PO DAILY [facility] Last Admin: 02/13/25 08:08 Dose: 75 mg Documented By: [place] Sodium Chloride (0.9 % Sodium Chloride Flush 3 Ml Syringe) 3 ml IVFLUSH QSHIFT [facility] Last Admin: 02/13/25 08:08 Dose: 3 ml Documented By: [place] Trazodone HCl (Trazodone Hcl 25 Mg Halftab) 12.5 mg PO DAILY@1600 [facility] Last Admin: 02/12/25 16:05 Dose: 12.5 mg Documented By: [place] Vitamin D (Cholecalciferol (Vitamin D3) 25 Mcg Tablet) 50 mcg PO DAILY [facility] Last Admin: 02/13/25 08:07 Dose: 50 mcg Documented By: [place] Zinc Oxide (Zinc Oxide 20% Ointment 28.35 Gm Tube) 1 appl TOPICAL BID [facility] Last Admin: 02/12/25 20:51 Dose: 1 appl Documented By: JENI Labs 02/11/25 05:59 02/11/25 05:59 Assessment and Plan (1) Confusion: Status: Acute Plan 89F PMH hypertension, hypothyroid, recurrent UTI, dementia, sent in from assisted living resident after being found wandering and confused Acute metabolic encephalopathy due to recurrent UTI urine culture esbl klebsiella changed to meropenem, on dc can do bactrim Hypothyroid Levothyroxine History of bleeding gastric AVM PPI DVT prophylaxis with heparin subQ Full code reason for continued hospitalization: dispo planning Quality Stroke Does the patient have a stroke diagnosis?: No VTE Prior VTE?: No VTE Risk Level:: Medical - moderate - high VTE Device Contraindication: Treatment Not Indicated VTE Drug Contraindication: N/A - Med Ordered
[2025-02-13 10:28] VITALS: BP 136/64; PULSE 72; O2SAT 96
--- NOTE | 2025-02-13 11:37 | PC.NURSE ---
Pt pleasant, calm and cooperative x3 days. Taking medication whole with no issues.
--- NOTE | 2025-02-13 12:43 | P.F2F_ITS ---
Service Date Service Date: 02/13/25 Encounter Date of encounter: 02/13/25 Reasons for Services Signs and symptoms assessed: weakness Reason for custodial: medication management, medication treatment and teach disease management Reason for physical therapy: home safety and mobility and therapeutic exercises Homebound: Leaving the home is medically contraindicated at this time without the asist of a device and/or another person due th the listed conditions above and below. Reason homebound: unsteady gait / fall risk Certification: Based on the above findings, I certify that this patient is confined to the home and needs intermittent custodial care, physical therapy and/or speech therapy, or continues to need occupational therapy. The patient is under my care, and I have initiated the establishment of the plan of care. The patient will be followed by a physician who will periodically review the plan of care. Time Spent With Patient Time: Total time managing care of this patient today ____ minutes.
--- NOTE | 2025-02-13 12:43 | P.DS_ITS ---
DS: Providers Provider Date of Service: 02/13/25 Date of admission: 02/09/25 00:29 Date of discharge: 02/13/25 Primary care physician: Unknown Physician DS: Diagnosis Discharge Diagnosis (1) Confusion: Status: Acute DS: Summary Hospital Course Hospital Course: from initial hpi: 89-year-old female with a past medical history of hypertension, hypothyroidism, recurrent UTI, dementia, assisted living resident; presented to the hospital with a chief complaint of confusion. Patient is alert and awake, confused, lying in the bed comfortably. Most of the history obtained from the records and the staff. Reportedly patient being treated for UTI at the assisted living facility; patient eloped from the assisted living facility and was found on the streets by the EMS and brought her to the hospital for further evaluation. Review of all other systems is limited. ER course: Per ER team, patient was alert and awake, mildly agitated; given Zyprexa; patient reportedly had recurrent falls; CT head and CT C-spine showed acute findings; exam was nonfocal; urinalysis abnormal consistent with UTI. Given ceftriaxone. hospital course: Patient was admitted for acute metabolic encephalopathy due to recurrent urinary tract infection. Urine culture grew ESBL Klebsiella. Was treated with IV ertapenem on discharge we will continue 5 more days of Bactrim. Mental status returned to baseline. For hypothyroid continue levothyroxine. For history of bleeding gastric AVM was continued on p.o. patient was seen by physical therapy recommended short-term rehab however patient is not interested at this time and will be discharged home to assisted living with [facility] Time Attestation Discharge Coordination Time (in mins): 37 Quality: Safe Use of Opioids Does Pt have an Active Cancer Diagnosis on the Problem List?: No Quality: Stroke Does the patient have a stroke diagnosis?: No Physical Exam Exam: Exam: General: AO X 3, no acute distress Resp: CTA bilateral, no accessory muscles used CVS: S1,S2,RRR GI: soft, non tender, non distended Neuro: motor grossly intact, alert Psych: appropriate affect, appropriate insight Vital Signs: Vital Signs: Last Vital Signs Temp 97.1 F 02/13/25 07:50 Pulse 72 02/13/25 10:28 Resp 18 02/13/25 07:50 BP 136/64 02/13/25 10:28 Pulse Ox 96 02/13/25 10:28 O2 Del Method Room Air 10/13/25 07:50 BMI result Body Mass Index 30.6 DS: Data Data Completed and Pending Completed studies during hospitalization [Text1]: Procedures Control Bleeding in Gastrointestinal Tract, Via Natural or Artificial Opening Endoscopic (11/14/24) Labs on day of discharge: Preliminary micro results at discharge 02/08/25 22:07 Blood Culture - Preliminary Blood - Venous No growth after 48 hours. 02/08/25 22:07 Blood Culture - Preliminary Blood - Venous No growth after 48 hours. Discharge Plan Discharge Anticipated Discharge Date/Time: 02/13/25 12:41 Patient Disposition: Home Health Service Discharge Diagnosis: uti, delerium Referrals: Jenae PINA [Outside] - 1 Day Referral Note: jenae PINA will call to schedule home PT and nursing appointments Physician,Mary Ann J [Primary Care Provider, Medical] - 1 Week Discharge Medications: New sulfamethoxazole-trimethoprim [Bactrim DS] 800-160 mg tablet 1 tab PO BID Qty: 10 0RF Continued atorvastatin 40 mg tablet 40 mg PO BEDTIME aspirin 81 mg tablet,delayed release (DR/EC) 81 mg PO DAILY levothyroxine 50 mcg tablet 50 mcg PO DAILY@0600 lisinopril 10 mg tablet 15 mg PO DAILY hydrochlorothiazide 12.5 mg tablet 12.5 mg PO DAILY ascorbic acid (vitamin C) [Vitamin C] 250 mg Tablet 250 mg PO DAILY sertraline 50 mg tablet 75 mg PO DAILY cholecalciferol (vitamin D3) [Vitamin D3] 50 mcg (2,000 unit) Capsule 50 mcg PO DAILY sennosides [senna] 8.6 mg Tablet 8.6 mg PO BID PRN (Reason: Constipation) magnesium hydroxide [Milk of Magnesia] 400 mg/5 mL Suspension 30 ml PO DAILY PRN (Reason: Constipation) Xarelto 20 mg tablet 20 mg PO DAILY@0730 Rx Instructions: Before breakfast. melatonin 3 mg Tablet 6 mg PO BEDTIME trazodone 50 mg Tablet 12.5 mg PO DAILY@1600 quetiapine 50 mg tablet 50 mg PO TID@0700,1200,1600 Desitin Daily Defense 13 % Cream 1 appl TOPICAL BID ferrous gluconate 324 mg (38 mg iron) Tablet 324 mg PO DAILY cephalexin 250 mg tablet 250 mg PO MOWEFR loperamide 2 mg Tablet 2 mg PO Q6H MDD 8mh PRN (Reason: Loose Stool) cholecalciferol (vitamin D3) 1,250 mcg (50,000 unit) Tablet 1,250 mcg PO QMONTH Lactobacillus acidophilus 500 million cell Capsule 500 mmu cells PO DAILY omeprazole 20 mg capsule,delayed release(DR/EC) 20 mg PO BID@0630,1630 Discharge Orders: Discharge Order (Routine); Ordered 02/13/25 Ordered By: Hay Jarrett Diet: Advance to usual diet Activity on Discharge: As tolerated Stand Alone Forms: Patient Portal Discharge page Print Language: Kosovan Care Plan Goals: recovery Health Concerns: uti delerium Plan of Treatment: 5 days bactrim Assessment: see above
--- NOTE | 2025-02-13 12:58 | MHC.CM.PN ---
Addendum entered by Ana Maria Zelaya RN 02/13/25 13:13: [facility] has declined patient. [facility] has accepted. [facility] nurse aware. Original Note: Medically clear for dc. PT eval complete, STR is recommended. Reviewed w/ son/HCP at bedside. Son declines STR and prefers patient to return to [facility] w/ NA services. Son will transport. IMM delivered. [facility] aware of return.
== END 2025-02-13 13:20 | disposition home health service (06) | DRG 689 ==
LOC: HO.ED 22:40 → HO.EDOVER 02-09 00:35 → HO.S3 02-09 14:34
PROVIDERS: Physician Assistant Medical; Admitting Provider Hospitalist; Emergency Provider Emergency Medicine; Visit Provider Internal Medicine
DX: N39.0 Urinary tract infection, site not specified (principal); G93.41 Metabolic encephalopathy; F02.811 Dementia in other diseases classified elsewhere, unspecified severity, with agitation; F05 Delirium due to known physiological condition; Z16.12 Extended spectrum beta lactamase (ESBL) resistance; G30.9 Alzheimer's disease, unspecified; B96.1 Klebsiella pneumoniae [K. pneumoniae] as the cause of diseases classified elsewhere; E03.9 Hypothyroidism, unspecified; W19.XXXA Unspecified fall, initial encounter; Z91.83 Wandering in diseases classified elsewhere; Z87.440 Personal history of urinary (tract) infections; Z87.891 Personal history of nicotine dependence; Z79.01 Long term (current) use of anticoagulants; Z79.82 Long term (current) use of aspirin; Z79.899 Other long term (current) drug therapy
CPT/HCPCS: 36415; 70450; 72125; 74176; 80048; 80053; 81001; 83605; 83735; 85025; 85027; 85610; 85730; 87040; 87086; 87088; 87186; 93005; 97162; 99285; J0696; J2185; J2250; J2359; J7120

== ENCOUNTER → 2025-02-08 18:40 | Outpatient (BNV) | payer MEDICARE, OTHER, SELFPAY | PROVIDERS: Admitting Provider Hospitalist; Emergency Provider Emergency Medicine; Visit Provider Internal Medicine Cardiovascular Disease | DX: R41.82 Altered mental status, unspecified (principal); W19.XXXA Unspecified fall, initial encounter | CPT/HCPCS: 93010 ==

== ENCOUNTER → 2025-02-08 19:53 | Outpatient (BNV) | payer MEDICARE, OTHER, SELFPAY | PROVIDERS: Visit Provider Student in an Organized Health Care Education/Training Program | DX: Z04.3 Encounter for examination and observation following other accident (principal) | CPT/HCPCS: 70450; 72125 ==

== ENCOUNTER 2025-02-09 00:29 | Outpatient (BNV) | payer MEDICARE, OTHER, SELFPAY | END 2025-02-09 09:25 | PROVIDERS: Admitting Provider Hospitalist; Emergency Provider Emergency Medicine; Visit Provider Radiology Diagnostic Radiology | DX: K44.9 Diaphragmatic hernia without obstruction or gangrene (principal); K57.30 Diverticulosis of large intestine without perforation or abscess without bleeding; K40.90 Unilateral inguinal hernia, without obstruction or gangrene, not specified as recurrent; K42.9 Umbilical hernia without obstruction or gangrene; K80.20 Calculus of gallbladder without cholecystitis without obstruction | CPT/HCPCS: 74176 ==

== ENCOUNTER → 2025-02-09 00:29 | Outpatient (BNV) | payer MEDICARE, OTHER, SELFPAY | PROVIDERS: Admitting Provider Hospitalist; Emergency Provider Emergency Medicine; Visit Provider Internal Medicine | DX: R41.0 Disorientation, unspecified (principal) | CPT/HCPCS: 99232 ==

== ENCOUNTER 2025-02-16 01:36 | Emergency (ER) | payer MEDICARE, OTHER, SELFPAY ==
--- NOTE | ~2025-02-16 | XR_ITS ---
CLINICAL HISTORY: fall, rib pain 4 view, chest and left ribs Comparison: CT/SR - CT ABDOMEN PELVIS WITHOUT IV CONTRAST - 02/09/25 09:25 EDT CR - XR CHEST 1V - 11/13/24 11:06 EDT Findings: No displaced rib fractures identified. Large hiatal hernia is evident, better depicted on the patient's recent CT scan. Mild atelectasis is seen within the left lung base. No pleural effusion or pneumothorax. IMPRESSION: No acute rib fractures. This document has been electronically signed by: Pedro Smith MD on 02/16/2025 02:58:55
--- NOTE | ~2025-02-16 | XR_ITS ---
CLINICAL HISTORY: fall, bruising 3 view left shoulder Comparison: CR - XR CHEST 1V - 11/13/24 11:06 EDT Findings: Bony alignment is anatomic without fracture, dislocation, or separation. Mild AC joint DJD. Minor glenohumeral joint DJD. Bones are osteopenic. IMPRESSION: 1. No acute findings This document has been electronically signed by: Pedro Smith MD on 02/16/2025 02:59:17
--- NOTE | ~2025-02-16 | XR_ITS ---
CLINICAL HISTORY: fall 3 view, pelvis and right hip Comparison: CT/SR - CT ABDOMEN PELVIS WITHOUT IV CONTRAST - 02/09/25 09:25 EDT Findings: Bony alignment of the hip joints is anatomic. No acute fracture. Mild degenerative change of both hip joints. 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 Sacroiliac joints are anatomically aligned. IMPRESSION: No acute findings. This document has been electronically signed by: Pedro Smith MD on 02/16/2025 03:01:44
[2025-02-16 01:42] VITALS: BP 140/56; BP 150/90; PULSE 80; PULSE 88; RESP 20; TEMP 36.6; O2SAT 95; O2SAT 99; BMI 32.2
--- OUTSIDE RECORDS SUMMARY | 2025-02-16 01:52 | XMS_ITS | Encounter Summary ---
Author Organization [facility] Address [address] [place] [address] Care Team Providers Care Braiding Operator Name Role Phone Lauren Garcia MD Primary Care Provider + Encounter Details Date Type Department Care Team (Late st Contact Info) Description 06/19/2024 Lab Requisition [facility] - Main Lab 299 [facility] [place] [address] Lauren Garcia MD [address] [phone] Essential (primary) hypertension Social History Tobacco Use [...] Associated Diagnosis Comments COMPLETE BLOOD COUNT Routine 06/20/2024 6:51 AM EST Essential (primary) hypertension BASIC METABOLIC PANEL Routine 06/20/2024 6:51 AM EST Essential (primary) hypertension documented in this encounter Results * (ABNORMAL) Basic metabolic panel (06/20/2024 6:51 AM EST) Sodium 139 133 - 145 mmol/L LAB CHEMISTRY METHOD 06/20/2024 11:15 AM EST [facility] Potassium 4.0 3.5 - 5.5 mmol/L LAB CHEMISTRY METHOD 06/20/2024 11:15 AM EST [facility] Chloride 106 96 - 110 mmol/L LAB CHEMISTRY METHOD 06/20/2024 11:15 AM [facility] CO2 27 21 - 32 mmol/L LAB CHEMISTRY METHOD 06/20/2024 11:15 AM [facility] Anion Gap 6 3 - 11 LAB CHEMISTRY METHOD 06/20/2024 11:15 AM [facility] Glucose 83 70 - 100 mg/dL LAB CHEMISTRY METHOD 06/20/2024 11:15 AM [facility] BUN 20 5 - 25 mg/dL LAB CHEMISTRY METHOD 06/20/2024 11:15 AM [facility] Creatinine 1.05 0.50 - 1.10 mg/dL LAB CHEMISTRY METHOD 06/20/2024 11:15 AM [facility] eGFR 52(L) >=60 mL/min/1. 73m2 LAB CHEMISTRY METHOD 06/20/2024 11:15 AM [facility] Comment:Calculation based on the Chronic Kidney Disease Epidemiology Collaboration (CKD-EPI) equation refit without adjustment for race. BUN/Creatinine Ratio 19.0 LAB CHEMISTRY METHOD 06/20/2024 11:15 AM [facility] Calcium 9.5 8.5 - 10.5 mg/dL LAB CHEMISTRY METHOD 06/20/2024 11:15 AM [facility] Blood Venous blood specimen / Unknown Venipuncture / Unknown 06/20/2024 6:51 AM EST 06/20/2024 10:15 AM EST us Lauren Garcia MD LAB BLOOD ORDERABLES Fin al Result [facility] [address] [place] [address], * (ABNORMAL) Complete blood count (06/20/2024 6:51 AM EST) WBC 7.0 4.8 - 10.8 K/mcL LAB HEMETOLOGY METHOD 06/20/2024 10:51 AM [facility] RBC 3.80 3.80 - 4.80 M/mcL LAB HEMETOLOGY METHOD 06/20/2024 10:51 AM [facility] Hemoglobin 9.8(L) 11.5 - 16.0 g/dL LAB HEMETOLOGY METHOD 06/20/2024 10:51 AM [facility] Hematocrit 33.0(L) 35.0 - 47.0 % LAB HEMETOLOGY METHOD 06/20/2024 10:51 AM [facility] MCV 86.4 79.0 - 98.0 FL LAB HEMETOLOGY METHOD 06/20/2024 10:51 AM [facility] MCH 25.7(L) 27.0 - 32.0 pcg LAB HEMETOLOGY METHOD 06/20/2024 10:51 AM [facility] MCHC 29.7(L) 32.0 - 37.0 g/dL LAB HEMETOLOGY METHOD 06/20/2024 10:51 AM [facility] RDW 16.4(H) 11.0 - 15.0 % LAB HEMETOLOGY METHOD 06/20/2024 10:51 AM [facility] Platelets 211 130 - 400 K/mcL LAB HEMETOLOGY METHOD 06/20/2024 10:51 AM [facility] MPV 12.3(H) 7.0 - 11.0 FL LAB HEMETOLOGY METHOD 06/20/2024 10:51 AM [facility] NRBC 0.0 <1.0 % LAB HEMETOLOGY METHOD 06/20/2024 10:51 AM [facility] NRBC Absolute 0.00 <0.10 K/mcL LAB HEMETOLOGY METHOD 06/20/2024 10:51 AM [facility] Blood Venous blood specimen / Unknown Venipuncture / Unknown 06/20/2024 6:51 AM EST 06/20/2024 10:15 AM EST us Lauren Garcia MD LAB BLOOD ORDERABLES Fin al Result [facility] ([facility] [address] [place] [address], documented in this encounter Visit Diagnoses Diagnosis Essential (primary) hypertension Unspecified essential hypertension documented in this encounter Additional Health Concerns Infection Onset Date Last Indicated Resolved 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
--- OUTSIDE RECORDS SUMMARY | 2025-02-16 01:52 | XMS_ITS | Encounter Summary ---
Author Organization [email or web address] Address [address] [place] [address] Care Team Providers Care Gas And Oil Checker Name Role Phone Lauren Garcia MD Primary Care Provider + Encounter Details Date Type Department Care Team (Late st Contact Info) Description 05/31/2024 Lab Requisition [facility] - Main Lab 299 [facility] [place] [address] Lauren Garcia MD 819 [facility] 1 [place], [place] [phone] Urinary tract infection, site not specified; Altered mental status, unspecified Social History Tobacco Use Types Packs/Day Years [...] Procedure Name Priority Date/Time Associated Diagnosis Comments URINALYSIS WITH REFLEX MICROSCOPIC Routine 05/30/2024 12:00 PM EST Urinary tract infection, site not specified Altered mental status, unspecified URINALYSIS WITH REFLEX MICROSCOPIC Routine 05/30/2024 12:00 PM EST Urinary tract infection, site not specified Altered mental status, unspecified CULTURE URINE Routine 05/30/2024 12:00 PM EST Urinary tract infection, site not specified Altered mental status, unspecified documented in this encounter Results * (ABNORMAL) Urinalysis with reflex microscopic (05/30/2024 12:00 PM EST) Specific [place] Urine 1.019 1.003 - 1.030 LAB URINALYSIS - AUTOMATED METHOD 05/31/2024 10:47 AM [facility] pH, Urine 5.5 5.0 - 8.0 pH LAB URINALYSIS - AUTOMATED METHOD 05/31/2024 10:47 AM [facility] Leukocytes, Urine Large(A) Negative LAB URINALYSIS - AUTOMATED METHOD 05/31/2024 10:47 AM [facility] Nitrite, Urine Negative Negative LAB URINALYSIS - AUTOMATED METHOD 05/31/2024 10:47 AM [facility] Protein, Urine Trace <=Trace mg/dL LAB URINALYSIS - AUTOMATED METHOD 05/31/2024 10:47 AM [facility] Glucose, Urine Negative Negative mg/dL LAB URINALYSIS - AUTOMATED METHOD 05/31/2024 10:47 AM [facility] Ketones, Urine Negative Negative mg/dL LAB URINALYSIS - AUTOMATED METHOD 05/31/2024 10:47 AM [facility] Urobilinogen , Urine 1.0 0.2 - 1.0 mg/dL LAB URINALYSIS - AUTOMATED METHOD 05/31/2024 10:47 AM [facility] Bilirubin, Urine Negative Negative LAB URINALYSIS - AUTOMATED METHOD 05/31/2024 10:47 AM [facility] Blood, Urine Trace(A) Negative LAB URINALYSIS - AUTOMATED METHOD 05/31/2024 10:47 AM [facility] RBC, Urine 4.0 0 - 4 /HPF LAB URINALYSIS - AUTOMATED METHOD 05/31/2024 10:47 AM [facility] WBC, Urine 651.5(H) 0 - 4 /HPF LAB URINALYSIS - AUTOMATED METHOD 05/31/2024 10:47 AM [facility] Squamous Epithelial, Urine 74(H) 0 - 60 /LPF LAB URINALYSIS - AUTOMATED METHOD 05/31/2024 10:47 AM [facility] Crystals, Urine Light Calcium Oxalate /LPF 05/31/2024 10:47 AM EST [facility] Bacteria, Urine Many(A) Negative /HPF LAB URINALYSIS - AUTOMATED METHOD 05/31/2024 10:47 AM [facility] Hyaline Casts, Urine 3.0 0 - 3 /LPF LAB URINALYSIS - AUTOMATED METHOD 05/31/2024 10:47 AM [facility] Yeast, Urine Present(A) None /HPF 05/31/2024 10:47 AM [facility] Urine Urine specimen obtained by clean catch procedure / Unknown Non-blood Collection / Unknown 05/30/2024 12:00 PM EST 05/31/2024 9:02 AM EST us Lauren Garcia MD LAB URINE ORDERABLES Fin al Result [facility] [address] [place] [address], * (ABNORMAL) Culture urine (05/30/2024 12:00 PM EST) Culture, Urine >100,000 CFU/mL Escherichia coli(A) JULISSA 06/02/2024 8:13 AM [facility] Urine Urine specimen obtained by clean catch procedure / Unknown Non-blood Collection / Unknown 05/30/2024 12:00 PM EST 05/31/2024 9:02 AM EST [facility] - 06/02/2024 8:13 AM EST Additional colony types present in insignificant amounts. Organism Antibiotic Method Susceptibility Escherichia coli Amoxicillin/Clavulanate JULISSA 4 ug/ml: Susceptible Escherichia coli Ampicillin/Sulbactam JULISSA 16 ug/ml: Intermediate Escherichia coli Piperacillin/Tazobactam JULISSA <=4 ug/ml: Susceptible Escherichia coli Cefazolin (Urine) JULISSA 8 ug/ml: Susceptible Escherichia coli Cefoxitin JULISSA 8 ug/ml: Susceptible Escherichia coli Ceftazidime JULISSA <=0.5 ug/ml: Susceptible Escherichia coli Ceftriaxone JULISSA <=0.25 ug/ml: Susceptible Escherichia coli Cefepime JULISSA <=0.12 ug/ml: Susceptible Escherichia coli Meropenem JULISSA <=0.25 ug/ml: Susceptible Escherichia coli Amikacin JULISSA 4 ug/ml: Susceptible Escherichia coli Gentamicin JULISSA <=1 ug/ml: Susceptible Escherichia coli Ciprofloxacin JULISSA >=4 ug/ml: Resistant Escherichia coli Levofloxacin JULISSA >=8 ug/ml: Resistant Escherichia coli Nitrofurantoin JULISSA <=16 ug/ml: Susceptible Escherichia coli Trimethoprim/Sulfamethoxazole JULISSA <=20 ug/ml: Susceptible us Lauren Garcia MD LAB MICROBIOLOGY - GENER AL ORDERABLES Final Result [facility] ([facility]) [facility] [address] [place] [address], documented in this encounter Visit Diagnoses Diagnosis Urinary tract infection, site not specified Altered mental status, unspecified documented in this encounter Additional Health Concerns Infection Onset Date Last Indicated Resolved Time 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
--- OUTSIDE RECORDS SUMMARY | 2025-02-16 01:52 | XMS_ITS | Encounter Summary ---
Author Organization [facility] [employer] Address [address] [place] [address] Care Team Providers Care Drama Director Name Role Phone Lauren Garcia MD Primary Care Provider + Encounter Details Date Type Department Care Team (Late st Contact Info) Description 06/01/2024 Lab Requisition [facility] - Main Lab 299 [facility] [place] [address] Lauren Garcia MD 8[address] [facility] 1 [place], [place] [phone] Altered mental status, unspecified; Urinary tract infection, site not specified Social History Tobacco Use Types Packs/Day Years [...] Diagnosis Comments URINALYSIS WITH REFLEX MICROSCOPIC Routine 05/31/2024 2:00 PM EST Altered mental status, unspecified Urinary tract infection, site not specified URINALYSIS WITH REFLEX MICROSCOPIC Routine 05/31/2024 2:00 PM EST Altered mental status, unspecified Urinary tract infection, site not specified CULTURE URINE Routine 05/31/2024 2:00 PM EST Altered mental status, unspecified Urinary tract infection, site not specified documented in this encounter Results * (ABNORMAL) Urinalysis with reflex microscopic (05/31/2024 2:00 PM EST) Specific [place] Urine 1.024 1.003 - 1.030 LAB URINALYSIS - AUTOMATED METHOD 06/01/2024 11:26 AM [facility] pH, Urine 5.5 5.0 - 8.0 pH LAB URINALYSIS - AUTOMATED METHOD 06/01/2024 11:26 AM [facility] Leukocytes, Urine Small(A) Negative LAB URINALYSIS - AUTOMATED METHOD 06/01/2024 11:26 AM [facility] Nitrite, Urine Positive(A) Negative LAB URINALYSIS - AUTOMATED METHOD 06/01/2024 11:26 AM [facility] Protein, Urine Trace <=Trace mg/dL LAB URINALYSIS - AUTOMATED METHOD 06/01/2024 11:26 AM [facility] Glucose, Urine Negative Negative mg/dL LAB URINALYSIS - AUTOMATED METHOD 06/01/2024 11:26 AM [facility] Ketones, Urine Trace(A) Negative mg/dL LAB URINALYSIS - AUTOMATED METHOD 06/01/2024 11:26 AM [facility] Urobilinogen , Urine 1.0 0.2 - 1.0 mg/dL LAB URINALYSIS - AUTOMATED METHOD 06/01/2024 11:26 AM [facility] Bilirubin, Urine Negative Negative LAB URINALYSIS - AUTOMATED METHOD 06/01/2024 11:26 AM [facility] Blood, Urine Negative Negative LAB URINALYSIS - AUTOMATED METHOD 06/01/2024 11:26 AM [facility] RBC, Urine 2.0 0 - 4 /HPF LAB URINALYSIS - AUTOMATED METHOD 06/01/2024 11:26 AM [facility] WBC, Urine 8.0(H) 0 - 4 /HPF LAB URINALYSIS - AUTOMATED METHOD 06/01/2024 11:26 AM [facility] Squamous Epithelial, Urine 10 0 - 60 /LPF LAB URINALYSIS - AUTOMATED METHOD 06/01/2024 11:26 AM EST [facility] Crystals, Urine MOD CALCIUM OXALATE /LPF LAB URINALYSIS - AUTOMATED METHOD 06/01/2024 11:26 AM [facility] Bacteria, Urine Many(A) Negative /HPF LAB URINALYSIS - AUTOMATED METHOD 06/01/2024 11:26 AM [facility] Hyaline Casts, Urine 0.0 0 - 3 /LPF LAB URINALYSIS - AUTOMATED METHOD 06/01/2024 11:26 AM [facility] Urine Urine specimen obtained by clean catch procedure / Unknown Non-blood Collection / Unknown 05/31/2024 2:00 PM EST 06/01/2024 11:04 AM EST Lauren Garcia MD LAB URINE ORDERABLES Fin al Result [facility] [address] [place] [address], * (ABNORMAL) Culture urine (05/31/2024 2:00 PM EST) Culture, Urine >100,000 CFU/mL Escherichia coli(A) JULISSA 06/03/2024 9:53 AM [facility] Urine Urine specimen obtained by clean catch procedure / Unknown Non-blood Collection / Unknown 05/31/2024 2:00 PM EST 06/01/2024 11:04 AM EST Narrative Organism Antibiotic Method Susceptibility Escherichia coli Amoxicillin/Clavulanate [...] <=0.25 ug/ml: Susceptible Escherichia coli Amikacin JULISSA 2 ug/ml: Susceptible Escherichia coli Gentamicin JULISSA <=1 ug/ml: Susceptible Escherichia coli Ciprofloxacin JULISSA >=4 ug/ml: Resistant Escherichia coli Levofloxacin JULISSA >=8 ug/ml: Resistant Escherichia coli Nitrofurantoin JULISSA <=16 ug/ml: Susceptible Escherichia coli Trimethoprim/Sulfamethoxazole JULISSA <=20 ug/ml: Susceptible us Lauren Garcia MD LAB MICROBIOLOGY - GENER AL ORDERABLES Final Result [facility]) [facility] [address] [place] [address], documented in this encounter Visit Diagnoses Diagnosis Altered mental status, unspecified Urinary tract infection, site not specified documented in this encounter Additional Health Concerns Infection Onset Date Last Indicated Resolved Time 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
--- OUTSIDE RECORDS SUMMARY | 2025-02-16 01:52 | XMS_ITS | Encounter Summary ---
Author Organization [facility] Address [address] [place] [address] Care Team Providers Care Knobber Name Role Phone Lauren Garcia MD Primary Care Provider + Encounter Details Date Type Department Care Team (Late st Contact Info) Description 06/06/2024 Lab Requisition [facility] - Main Lab 299 [facility] [place] [address] Lauren Garcia MD 8[address] [facility] 1 [place], [place] [phone] Vitamin D deficiency, unspecified; Essential (primary) hypertension Social History Tobacco [...] Procedure Name Priority Date/Time Associated Diagnosis Comments VITAMIN D 25 HYDROXY Routine 06/06/2024 8:50 AM EST Vitamin D deficiency, unspecified Essential (primary) hypertension COMPLETE BLOOD COUNT Routine 06/06/2024 8:50 AM EST Vitamin D deficiency, unspecified Essential (primary) hypertension MAGNESIUM Routine 06/06/2024 8:50 AM EST Vitamin D deficiency, unspecified Essential (primary) hypertension FOLATE Routine 06/06/2024 8:50 AM EST Vitamin D deficiency, unspecified Essential (primary) hypertension VITAMIN B12 Routine 06/06/2024 8:50 AM EST Vitamin D deficiency, unspecified Essential (primary) hypertension COMPREHENSIVE METABOLIC PANEL Routine 06/06/2024 8:50 AM EST Vitamin D deficiency, unspecified Essential (primary) hypertension documented in this encounter Results * (ABNORMAL) Magnesium (06/06/2024 8:50 AM EST) [facility] Magnesium 1.6(L) 1.9 - 2.6 mg/dL LAB CHEMISTRY METHOD 06/06/2024 4:25 PM EST [facility] Blood Venous blood specimen / Unknown Venipuncture / Unknown 06/06/2024 8:50 AM EST 06/06/2024 11:43 AM EST Lauren Garcia MD LAB BLOOD ORDERABLES Fin al Result Performing Organization Address City/[facility]/ZIP Co de Phone Number [facility] [address] [place] [address], * Folate (06/06/2024 8:50 AM EST) [facility] Folate 8.9 2.8 - 17.0 ng/ml LAB CHEMISTRY METHOD 06/06/2024 4:44 PM EST [facility] Blood Venous blood specimen / Unknown Venipuncture / Unknown 06/06/2024 8:50 AM EST 06/06/2024 11:43 AM EST Lauren Garcia MD LAB BLOOD ORDERABLES Fin al Result [facility] [address] [place] [address], * Vitamin B12 (06/06/2024 8:50 AM EST) [facility] Vitamin B-12 678 250 - 900 pcg/mL LAB CHEMISTRY METHOD 06/06/2024 4:44 PM EST [facility] Blood Venous blood specimen / Unknown Venipuncture / Unknown 06/06/2024 8:50 AM EST 06/06/2024 11:43 AM EST Lauren Garcia MD LAB BLOOD ORDERABLES Fin al Result Performing Organization Address [facility]/ZIP Co de Phone Number [facility] [address] [place] [address], [place] [phone] * Vitamin D 25 hydroxy (06/06/2024 8:50 AM EST) Pathologist [facility] Vit D, 25-Hydroxy 36.0 30.0 - 80.0 ng/mL LAB CHEMISTRY METHOD 06/06/2024 4:22 PM [facility] Blood Venous blood specimen / Unknown Venipuncture / Unknown 06/06/2024 8:50 AM EST 06/06/2024 11:43 AM EST Lauren Garcia MD LAB BLOOD ORDERABLES Fin al Result Performing Organization Address [facility] Co de Phone Number [facility] [address] [place] [address], [place] [phone] * (ABNORMAL) Comprehensive metabolic panel (06/06/2024 8:50 AM EST) [facility] Sodium 138 133 - 145 mmol/L LAB CHEMISTRY METHOD 06/06/2024 5:02 PM [facility] Potassium 4.3 3.5 - 5.5 mmol/L LAB CHEMISTRY METHOD 06/06/2024 5:02 PM [facility] Comment:Hemolysis present Chloride 106 96 - 110 mmol/L LAB CHEMISTRY METHOD 06/06/2024 5:02 PM [facility] CO2 20(L) 21 - 32 mmol/L LAB CHEMISTRY METHOD 06/06/2024 5:02 PM [facility] Anion Gap 12(H) 3 - 11 LAB CHEMISTRY METHOD 06/06/2024 5:02 PM [facility] Glucose 104(H) 70 - 100 mg/dL LAB CHEMISTRY METHOD 06/06/2024 5:02 PM [facility] BUN 32(H) 5 - 25 mg/dL LAB CHEMISTRY METHOD 06/06/2024 5:02 PM [facility] Comment:Results verified by repeat testing Creatinine 2.05(H) 0.50 - 1.10 mg/dL LAB CHEMISTRY METHOD 06/06/2024 5:02 PM [facility] Comment:Results verified by repeat testing eGFR 23(L) >=60 mL/min/1. 73m2 LAB CHEMISTRY METHOD 06/06/2024 5:02 PM [facility] Comment:Calculation based on the Chronic Kidney Disease Epidemiology Collaboration (CKD-EPI) equation refit without adjustment for race. BUN/Creatinine Ratio 15.6 LAB CHEMISTRY METHOD 06/06/2024 5:02 PM [facility] Calcium 9.5 8.5 - 10.5 mg/dL LAB CHEMISTRY METHOD 06/06/2024 5:02 PM [facility] AST (SGOT) 29 10 - 42 unit/L LAB CHEMISTRY METHOD 06/06/2024 5:02 PM [facility] Comment:Hemolysis present ALT (SGPT) 19 10 - 60 unit/L LAB CHEMISTRY METHOD 06/06/2024 5:02 PM [facility] Alkaline Phosphatase 96 42 - 121 unit/L LAB CHEMISTRY METHOD 06/06/2024 5:02 PM [facility] Total Protein 6.2 6.0 - 8.0 g/dL LAB CHEMISTRY METHOD 06/06/2024 5:02 PM [facility] Albumin 2.8(L) 3.2 - 5.0 g/dL LAB CHEMISTRY METHOD 06/06/2024 5:02 PM [facility] Total Bilirubin 1.2 0.0 - 1.4 mg/dL LAB CHEMISTRY METHOD 06/06/2024 5:02 PM [facility] Blood Venous blood specimen / Unknown Venipuncture / Unknown 06/06/2024 8:50 AM EST 06/06/2024 11:43 AM EST us Lauren Garcia MD LAB BLOOD ORDERABLES Fin al Result [facility] [address] [place] [address], * (ABNORMAL) Complete blood count (06/06/2024 8:50 AM EST) [facility] WBC 8.2 4.8 - 10.8 K/mcL LAB HEMETOLOGY METHOD 06/06/2024 12:50 PM [facility] RBC 4.40 3.80 - 4.80 M/mcL LAB HEMETOLOGY METHOD 06/06/2024 12:50 PM [facility] Hemoglobin 11.2(L) 11.5 - 16.0 g/dL LAB HEMETOLOGY METHOD 06/06/2024 12:50 PM [facility] Hematocrit 38.7 35.0 - 47.0 % LAB HEMETOLOGY METHOD 06/06/2024 12:50 PM [facility] MCV 89.0 79.0 - 98.0 FL LAB HEMETOLOGY METHOD 06/06/2024 12:50 PM [facility] MCH 25.7(L) 27.0 - 32.0 pcg LAB HEMETOLOGY METHOD 06/06/2024 12:50 PM [facility] MCHC 28.9(L) 32.0 - 37.0 g/dL LAB HEMETOLOGY METHOD 06/06/2024 12:50 PM [facility] RDW 16.6(H) 11.0 - 15.0 % LAB HEMETOLOGY METHOD 06/06/2024 12:50 PM [facility] Platelets 195 130 - 400 K/mcL LAB HEMETOLOGY METHOD 06/06/2024 12:50 PM EST [facility] MPV 12.2(H) 7.0 - 11.0 FL LAB HEMETOLOGY METHOD 06/06/2024 12:50 PM EST [facility] NRBC 0.0 <1.0 % LAB HEMETOLOG METHOD 06/06/2024 12:50 PM EST [facility] NRBC Absolute 0.00 <0.10 K/mcL LAB HEMETOLOGY METHOD 06/06/2024 12:50 PM EST [facility] Blood Venous blood specimen / Unknown Venipuncture / Unknown 06/06/2024 8:50 AM EST 06/06/2024 11:43 AM EST us Lauren Garcia MD LAB BLOOD ORDERABLES Fin al Result [facility] [address] [place] [address], documented in this encounter Visit Diagnoses Diagnosis Vitamin D deficiency, unspecified Essential (primary) hypertension Unspecified essential hypertension documented in this encounter Additional Health Concerns Infection Onset Date Last Indicated Resolved 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
--- OUTSIDE RECORDS SUMMARY | 2025-02-16 01:52 | XMS_ITS | Data Portability ---
Author Organization [place] - [facility], [facility] Address [address] [place] [address] Assessment Encounter Date Assessment Date Assessment LastModified [...] right ankle 3 v out of cast [email or web address] Not available 04/26/2024 12:49:17 05/17/2024 05/17/2024 SUBJECTIVE Chief Complaint Follow-up for right ankle fracture, status post-ORIF performed on April 10, 2024. History of Present Illness The patient, YESSENIA, is accompanied by a family member from her rehab facility. She reports minimal pain and is doing well. TM remains lih-vugevi-ovjmjrr on the affected extremity. OBJECTIVE Examination The patient's right ankle shows foot swelling. The calf is soft and non-tender. Medial and lateral incisions are well-healed with monofilament suture in place. Imaging X-rays ordered, obtained, and reviewed by me today at [facility] of the right ankle, three views, show [...] ankle X-ray. Date: 05/17/2024 Patient Name: YESSENIA [email or web address] Not available 05/17/2024 11:39:26 06/15/2024 06/15/2024 SUBJECTIVE [...] obtained, and reviewed by me today at [facility]: Right ankle, three views, show malleolar fixation intact, fracture lines through the medial and lateral malleolus resolving, ankle joint spaces maintained. ASSESSMENT Right ankle fracture healing. PLAN Discontinue cast. Allow weight-bearing as tolerated with the goal of resuming ambulation. Recheck in three months. [email or web address] Not available 06/15/2024 12:09:52 09/13/2024 09/13/2024 SUBJECTIVE: [...] obtained and reviewed by me today at [facility] Right ankle three views show the ankle joints appropriately positioned. The lateral, medial and posterior malleoli fracture alignment maintained with signs of healing. Fracture lines blurred fibular and medial malleolar implants in place. ASSESSMENT: Right ankle fracture trimaleolar status post ORIF with routine healing and good recovery to date. PLAN: Further follow up on an as needed basis. No restrictions outlined. [email or web address] Not available 09/13/2024 12:11:09 Plan of Treatment Reminders Order Date Submit Date Provider Last Modified By Organization Details Last Modified Time Details Appointments None recorded. Lab None recorded. Referral None recorded. Procedures None recorded. Surgeries None recorded. Imaging XR, ankle, 3 or more view - 315 rt ankle 3v recheck 025 025 [facility], [address], [place], [address], 5 12:58:04 XR, ankle, 3 or more view - 314 3v rt ankle global cast off first 025 025 cstamand [facility], [address], [address], [place], [address], 5 06:52:27 XR, ankle, 3 or more view - 314- right ankle 3v global cast off first 025 025 [email or web address] 4 [facility], [address], [place], [address], 5 12:03:07 XR, ankle, 3 or more view - 314 rt ankle 3v global 024 024 [email or web address] 0 [facility], [address], [address], [place], [address], 4 16:14:13 Medication Orders None recorded. Patient TargetsNo targets recorded. Patient Instructions Encounter Date Encounter Id Patient Instructions Last Modified By Organization Details Last Modified Time 04/26/[id number] application of cast, short leg cast* - 314 SLC NWB NEUTRAL, pt very stiff unable to get to neutral [email or web address] Not available 05/03/2024 16:14:13 05/17/[id number] cast removal* - 314 cast off and xr [email or web address] Not available 05/17/2024 12:03:07 application of cast, short leg cast* - 314 SLC neutral WB [email or web address] Not available 05/17/2024 12:14:11 06/15/[id number] cast removal* - 314 rt ankle cast off and xr, global [email or web address] Not available 06/15/2024 13:05:35 Reason for Referral None Reported. Results Created Date Observation Date Name Description Value Unit Range Abnormal Flag Note LastModifiedBy Organization Detail LastModifiedTime 04/26/20 24 04/26/2024 XR, ankle , 3 or more view [email or web address]:/ [email or web address] ?Encry pted=s hAaTro YD8dLq bEUv6g %2BXZw aYqtaq 0bqfl% 2Fg9IQ a4ajBk vP9nXo QUaueC m3YtLR FvZl [place] [address] 8t7605 AC0Kqb nuBUqW kKiQtr MwF INTERFACE [facility] [address], [place], [address], 04/26/2024 10:34:44 04/26/20 24 04/26/2024 XR, ankle , 3 or more view [email or web address] ?Encry pted=s hAaTro YD8dLq bEUv6g %2BXZw aYqtaq 0bqfl% 2Fg9IQ a4ajBk vP9nXo QUaueC m3YtLR [facility] [place] [address] 8l[address] AC0Kqb nuBUqW kKiQtr MwF INTERFACE [facility] [address], [place], [address], 04/26/2024 10:34:46 05/17/19 25 05/17/2024 XR, ankle , 3 or more view [email or web address] ?Encry pted=s hAaTro YD8dLq bEUv6g %2BXZw aYqtaq 0bqfl% 2Fg9IQ a4ajBk vP9nXo QUaueC m3YtLR Zl JJ8mAn HZtai3 3i9531 AC0Kqb 3mFUaW vKiQtr MwF INTERFACE [facility] [address], [place], [address], 05/17/2024 10:58:19 05/17/19 25 05/17/2024 XR, ankle , 3 or more view [email or web address]:/ [email or web address] ?Encry pted=s hAaTro YD8dLq bEUv6g %2BXZw aYqtaq 0bqfl% 2Fg9IQ a4ajBk vP9nXo QUaueC m3YtLR FvZlgJ JJ8mAn HZtai3 3h2633 AC0Kqb 3mFUaW vKiQtr MwF INTERFACE [facility] [address], [place], [address], 05/17/2024 10:58:21 06/15/19 25 06/15/2024 XR, ankle , 3 or more view [email or web address]:/ [email or web address] ?Encry pted=s hAaTro YD8dLq bEUv6g %2BXZw aYqtaq 0bqfl% 2Fg9IQ a4ajBk vP9nXo QUaueC m3YtLR FvZlgJ JJ8mAn HZtai3 4p2518 AC0Kqb HqNWaO kKiQtr MwF INTERFACE [facility] [address], [place], [address], 06/15/2024 10:36:12 06/15/19 25 06/15/2024 XR, ankle , 3 or more view [email or web address]:/ [email or web address] ?Encry pted=s hAaTro YD8dLq bEUv6g %2BXZw aYqtaq 0bqfl% 2Fg9IQ a4ajBk vP9nXo QUaueC m3YtLR FvZlgJ JJ8mAn HZtai3 1f0665 AC0Kqb HqNWaO kKiQtr MwF INTERFACE [facility] [address], [place], [address], 06/15/2024 10:36:15 09/14/19 25 09/13/2024 XR, ankle , 3 or more view [email or web address]:/ [email or web address] ?Encry pted=s hAaTro YD8dLq bEUv6g %2BXZw aYqtaq 0bqfl% 2Fg9IQ a4ajBk vP9nXo QUaueC m3YtLR FvZlgJ [facility] HZtai3 8y9918 AC0Kla nSDVqK kKiQtr MwF INTERFACE [facility] [address], [place], [address], 09/13/2024 11:54:15 09/14/19 25 09/13/2024 XR, ankle , 3 or more view http:/ [email or web address] ?Encry pted=s hAaTro YD8dLq bEUv6g %2BXZw aYqtaq 0bqfl% 2Fg9IQ a4ajBk vP9nXo QUaueC m3YtLR FvZlJ [address] 4u[address] AC0Kla nSDVqK kKiQtr MwF INTERFACE [facility] [address] [place] [address], [place], [address], 09/13/2024 11:54:16 09/14/19 25 09/13/2024 XR, ankle , 3 or more view [email or web address]:/ [email or web address] ?Encry pted=s hAaTro YD8dLq bEUv6g %2BXZw aYqtaq 0bqfl% 2Fg9IQ a4ajBk vP9nXo QUaueC m3YtLR FvZlgJ JJ8mAn HZtai3 2c7866 AC0Kla nSDVqK kKiQtr MwF INTERFACE [facility] [address], [place], [address], 09/13/2024 12:02:41 09/14/19 25 09/13/2024 XR, ankle , 3 or more view [email or web address]:/ [email or web address] ?Encry pted=s hALianeto YD8dLq bEUv6g %2BXZw aYqtaq 0bqfl% 2Fg9IQ a4ajBk vP9nXo QUaueC m3YtLR FvZlgJ JJ8mAn HZtai3 1n7840 AC0Kla nSDVqK kKiQtr MwF INTERFACE [facility] [address] [facility] [address], [place], [address], 09/13/2024 12:02:43 Result Notes Documentation Provider Name and Address Organization Details Recorded Time Xr, Ankle, 3 Or More View : [email or web address] Encrypted=egNjXomMW6hLruB Uv6g%7JUGynYivyf9ghro%2Fg 2UBz4chZgdQ7aIdSWzjlKz7Rq OJBdHwnYUH5aYjBDiap62l679 4OC6EwxtqSWpMmRmQteHuC Not Available [facility] 04/26/2024 10:34: 44 Xr, Ankle, 3 Or More View : [email or web address] Encrypted=ftOxVkkJU8nAdpE Uv6g%4LLIgsAjywe8pbeo%2Fg 4NIq1ykZvqW9qPtUWpwnLg3Fq NTPxFlgIUE7fImYXdan25g135 4WX3SbxptEJaNlIqUlzPiN Not Available [facility] 04/26/2024 10:34: 47 Xr, Ankle, 3 Or More View : [email or web address] Encrypted=kjTgLrwVM0pYjfV Uv6g%4LKOrrZyjhj5petu%2Fg 2CUt4fmIelV1vUfTPlkeIu5Sh YFZnPjgAVH9xRpOHopt44w608 7ZV8Zto0xPYzDuLgAivFsV Not Available [facility] 05/17/2024 10:58: 19 Xr, Ankle, 3 Or More View : [email or web address] Encrypted=wxKmQnmRC1vJqwG Uv6g%8ASPdeLipfv8vzln%2Fg 3ZEi9rfDpsJ5oLqHBftsBw4Ob SYVbWgrZYN6nLzEQand79h702 5ES0Vvw3fNOvLeSwEmuMyH Not Available [facility] 05/17/2024 10:58: 22 Xr, Ankle, 3 Or More View : [email or web address] Encrypted=spTwHxoGV4wUbbI Uv6g%0XBJyoPhszk6qsro%2Fg 9MXd8ivZhlZ9lTeFTfjuTa4Uo VBBtHanTJB3vMjHTbjy68t739 5QC9NeyVhQWwUxBcVzyVhH Not Available [facility] 06/15/2024 10:36: 13 Xr, Ankle, 3 Or More View : [email or web address] Encrypted=lbEbJadVN5sFnuS Uv6g%3THZnpTvseh4zmzj%2Fg 0AWo9ciZvdJ8rHzYAilrCj7Xp RZCaIkhEFB9hQkRGtlb83u496 7ZE2JftXbGHdRdMgBqcReH Not Available [facility] 06/15/2024 10:36: 15 Xr, Ankle, 3 Or More View : [email or web address] Encrypted=fwWuYlvXF0bDdyE Uv6g%6KNCrkCwbco1fvip%2Fg 6AGk8uqDxhI2aGkKHsrxLo5Qy BMUyEreZAZ2kUhBHmcl36r697 2ED0PcirBWCsEnQwUwbBqP Not Available [facility] 09/13/2024 11:54: 15 Xr, Ankle, 3 Or More View : [email or web address] Encrypted=ayWvFmrMM3eLooJ Uv6g%8WSNcsEgdci7eyfs%2Fg 6JAc8kuQsjM8tQlOResfTw6Ly ECLrBsgLOQ9nEeRElpi96h550 5RJ0IchjCSAbHjFmJqaPlH Not Available [facility] 09/13/2024 11:54: 17 Xr, Ankle, 3 Or More View : [email or web address] Encrypted=ytGnLckVU7qQymE Uv6g%5AMExoTqepv8ckzf%2Fg 1XOy7ncZtxF0eXaOUoljSt7Wm CLIkOwwQST3zWdFTgur35y606 0XE7SdxtMNVjVvOtMvqKoX Not Available [facility] 09/13/2024 12:02: 42 Xr, Ankle, 3 Or More View : [email or web address] Encrypted=ncBoIklVM2nMcgL Uv6g%6TAYozReski2qfbd%2Fg 8PEe7huIbqH5kSbAIpaeMt1Sv IMXgDvzHOQ1iAzBIohv02m950 5FT5KwmzDTCzBoUnDssAcJ Not Available [facility] 09/13/2024 12:02: 43 Medical Equipment None Reported. [...] Details Last Updated DateTime [facility]/17/[facility]24 [facility] 05/17/2024 10:33:53 Date Recorded Body height Provider Name an d Address Organization Details Last Updated DateTime 06/15/2024 152.4 cm [facility] 06/15/2024 10:18:57 Date Recorded Body height Provider Name an d Address Organization Details Last Updated DateTime 09/13/2024 152.4 cm [facility] 09/13/2024 11:47:37 Date Recorded Body height Provider Name an d Address Organization Details Last Updated DateTime 04/26/2024 152.4 cm [facility] 04/26/2024 10:22:14 Social History None recorded. Functional Status None recorded. Mental Status None recorded. Family History Nothing Reported. Medical History Condition Response Allergies/Hayfever N Coronary Artery Disease N Breathing or lung disorders N Anxiety/Depression N Emphysema N Nerve Disorders N Thyroid Problems Y COPD N Pacemaker N Kidney/Bladder Problems N Anemia N Vascular Disease N Heart Trouble N Heart Attack (SD) N Gastrointestinal Disease N Cholesterol Y Diabetes N Autoimmune disease N Inflammatory Joint disease N Bleeding Disorder N Orthotics N Seizures/Epilepsy N Arthritis N Blood Clot N AIDS/HIV N Congestive Heart Failure (CHF) N Acid Reflux (GERD) N Cancer N Stroke N Asthma N Circulation Problems N Peripheral Vascular Disease N Sleep Apnea N Hepatitis N Heart Disease N Rheumatoid Arthritis N Pulmonary Embolism N Arrhythmia N Headaches N Fibromyalgia N Hypertension Y Osteoporosis N Gynecological HistoryNo gynecological history recorded. Obstetrics History GPAL:G 0 P 0 0 0 0 Past Encounters Encounter ID Performer Location Encounter Start Date Encounter Closed Date Diagnosis/Indication Diagnosis SNOMED-CT Code Diagnosis ICD10 Code Diagnosis IMO Codes Diagnosis Note [id number] Cate Chen MD [facility] [address] [place] [address] 04/26/2024 10:10:07 05/18/2024 16:28:27 Closed fracture of right ankle [id number] S82.891A [id number] [facility] [address] [address] [place] [address] 05/17/2024 10:20:39 05/17/2024 11:41:43 Closed fracture of right ankle 1008399280 [id number] S82.891A [id number] MD CHRISTIAN Shelby [facility] [address] [place] [address] 06/15/2024 10:09:23 07/05/2024 06:52:27 Closed fracture of right ankle 8528718934 [id number] S82.891A [id number] [facility] [address] [address] [place] [address] 09/13/2024 11:43:31 09/20/2024 12:58:04 Closed fracture of right ankle 0024926779 [id number] S82.891A [id number] Health Concerns Section Related Observation LastModified by Organization Detai ls LastModified Time None Recorded Concern Status LastModified by Organization Details LastModified Time None Recorded Advance Directives Directive None Recorded Payers Insurance Date Sequence Insurance Name Policy Number Policy Thomas Covered Member ID Thomas Member ID Guarantor Name 09/11/2024 1 [place]: Property Partner SERVICES Lashaun Turpin [id number] Lashaun Turpin 09/20/2024 2 [facility] INDEMNITY PLAN (INDEMNITY) [id number] Lashaun Turpin [id number] Lashaun Papi 06/06/2024 [facility] Lashaun Papi [id number] Lashaun Papi 09/11/2024 [facility] - SPECIALITY CLAIMS (MEDICARE DME REGION A) Lashaun Pastor Turpin [id number] Lashaun Papi OBGyn Episode No OBEpisode recorded.
--- OUTSIDE RECORDS SUMMARY | 2025-02-16 01:52 | XMS_ITS | Encounter Summary ---
Author Organization [facility] Address [address] [place] [address] Care Team Providers Care Boring Machine Operator Horizontal Name Role Phone Lauren Garcia MD Primary Care Provider + Encounter Details Date Type Department Care Team (Late st Contact Info) Description 05/13/2024 Lab Requisition [facility] - Main Lab [address] [facility] [place] [address] Lauren Garcia MD [address] [phone] Chronic kidney disease, unspecified; Essential (primary) hypertension [...] mmol/L LAB CHEMISTRY METHOD 05/16/2024 1:28 PM [facility] Anion Gap 8 3 - 11 LAB CHEMISTRY METHOD 05/16/2024 1:28 PM [facility] LAB Glucose 83 70 - 100 mg/dL LAB CHEMISTRY METHOD 05/16/2024 1:28 PM [facility] BUN 24 5 - 25 mg/dL LAB CHEMISTRY METHOD 05/16/2024 1:28 PM [facility] LAB Creatinine 1.17(H) 0.50 - 1.10 mg/dL LAB CHEMISTRY METHOD 05/16/2024 1:28 PM [facility] LAB eGFR 45(L) >=60 mL/min/1. 73m2 LAB CHEMISTRY METHOD 05/16/2024 1:28 PM [facility] LAB Comment:Calculation based on the Chronic Kidney Disease Epidemiology Collaboration (CKD-EPI) equation refit without adjustment for race. BUN/Creatinine Ratio 20.5 LAB CHEMISTRY METHOD 05/16/2024 1:28 PM [facility] LAB Calcium 9.8 8.5 - 10.5 mg/dL LAB CHEMISTRY METHOD 05/16/2024 1:28 PM [facility] Blood Venous blood specimen / Unknown Venipuncture / Unknown 05/16/2024 6:18 AM EST 05/16/2024 10:47 AM EST us Lauren Garcia MD LAB BLOOD ORDERABLES Fin al Result [facility] [address] [place] [address], * (ABNORMAL) Complete blood count (05/16/2024 6:18 AM EST) WBC 6.2 4.8 - 10.8 K/[facility] 05/16/2024 1:43 PM [facility] RBC 4.00 3.80 - 4.80 M/mcL LAB HEMETOLOGY METHOD 05/16/2024 1:43 PM [facility] Hemoglobin 10.0(L) 11.5 - 16.0 g/dL LAB HEMETOLOGY METHOD 05/16/2024 1:43 PM [facility] LAB Hematocrit 34.6(L) 35.0 - 47.0 % LAB HEMETOLOGY METHOD 05/16/2024 1:43 PM [facility] LAB MCV 87.6 79.0 - 98.0 FL LAB HEMETOLOGY METHOD 05/16/2024 1:43 PM [facility] LAB MCH 25.3(L) 27.0 - 32.0 pcg LAB HEMETOLOGY METHOD 05/16/2024 1:43 PM [facility] LAB MCHC 28.9(L) 32.0 - 37.0 g/dL LAB HEMETOLOGY METHOD 05/16/2024 1:43 PM [facility] LAB RDW 14.5 11.0 - 15.0 % LAB HEMETOLOGY METHOD 05/16/2024 1:43 PM [facility] LAB Platelets 212 130 - 400 K/mcL LAB HEMETOLOGY METHOD 05/16/2024 1:43 PM [facility] LAB MPV 12.0(H) 7.0 - 11.0 FL LAB HEMETOLOGY METHOD 05/16/2024 1:43 PM [facility] LAB NRBC 0.0 <1.0 % LAB HEMETOLOGY METHOD 05/16/2024 1:43 PM [facility] LAB NRBC Absolute 0.00 <0.10 K/mcL LAB HEMETOLOGY METHOD 05/16/2024 1:43 PM [facility] LAB Blood Venous blood specimen / Unknown Venipuncture / Unknown 05/16/2024 6:18 AM EST 05/16/2024 10:47 AM EST us Lauren Garcia MD LAB BLOOD ORDERABLES Fin al Result [facility] [address] [place] [address], documented in this encounter Visit Diagnoses Diagnosis Chronic kidney disease, unspecified Essential (primary) hypertension Unspecified essential hypertension documented in this encounter Additional Health Concerns Infection Onset Date Last Indicated Resolved 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
--- OUTSIDE RECORDS SUMMARY | 2025-02-16 01:52 | XMS_ITS | Encounter Summary ---
Author Organization [facility] Address [address] [place] [address] Care Team Providers Care Forms Designer Name Role Phone Lauren Garcia MD Primary Care Provider + Encounter Details Date Type Department Care Team (Late st Contact Info) Description 06/09/2024 Lab Requisition [facility] - Main Lab [address] [facility] [place] [address] Lauren Garcia MD [address] [phone] Altered mental status, unspecified; Vitamin D deficiency, unspecified Social History Tobacco Use Types Packs/Day [...] Associated Diagnosis Comments COMPLETE BLOOD COUNT Routine 06/09/2024 7:19 AM EST Altered mental status, unspecified Vitamin D deficiency, unspecified BASIC METABOLIC PANEL Routine 06/09/2024 7:19 AM EST Altered mental status, unspecified Vitamin D deficiency, unspecified documented in this encounter Results * (ABNORMAL) Basic metabolic panel (06/09/2024 7:19 AM EST) Sodium 139 133 - 145 mmol/L LAB CHEMISTRY METHOD 06/09/2024 11:28 AM EST [facility] Potassium 4.3 3.5 - 5.5 mmol/L LAB CHEMISTRY METHOD 06/09/2024 11:28 AM EST [facility] Chloride 104 96 - 110 mmol/L LAB CHEMISTRY METHOD 06/09/2024 11:28 AM [facility] CO2 26 21 - 32 mmol/L LAB CHEMISTRY METHOD 06/09/2024 11:28 AM [facility] LAB Anion Gap 9 3 - 11 LAB CHEMISTRY METHOD 06/09/2024 11:28 AM [facility] LAB Glucose 87 70 - 100 mg/dL LAB CHEMISTRY METHOD 06/09/2024 11:28 AM [facility] BUN 51(H) 5 - 25 mg/dL LAB CHEMISTRY METHOD 06/09/2024 11:28 AM [facility] LAB Creatinine 2.09(H) 0.50 - 1.10 mg/dL LAB CHEMISTRY METHOD 06/09/2024 11:28 AM [facility] LAB eGFR 23(L) >=60 mL/min/1. 73m2 LAB CHEMISTRY METHOD 06/09/2024 11:28 AM [facility] LAB Comment:Calculation based on the Chronic Kidney Disease Epidemiology Collaboration (CKD-EPI) equation refit without adjustment for race. BUN/Creatinine Ratio 24.4 LAB CHEMISTRY METHOD 06/09/2024 11:28 AM [facility] LAB Calcium 9.7 8.5 - 10.5 mg/dL LAB CHEMISTRY METHOD 06/09/2024 11:28 AM [facility] LAB Blood Venous blood specimen / Unknown Venipuncture / Unknown 06/09/2024 7:19 AM EST 06/09/2024 10:24 AM EST us Lauren Garcia MD LAB BLOOD ORDERABLES Fin al Result [facility] [address] [place] [address], * (ABNORMAL) Complete blood count (06/09/2024 7:19 AM EST) WBC 5.5 4.8 - 10.8 K/mcL LAB HEMETOLOGY METHOD 06/09/2024 11:24 AM [facility] RBC 3.90 3.80 - 4.80 M/mcL LAB HEMETOLOGY METHOD 06/09/2024 11:24 AM [facility] Hemoglobin 10.1(L) 11.5 - 16.0 g/dL LAB HEMETOLOGY METHOD 06/09/2024 11:24 AM [facility] LAB Hematocrit 33.6(L) 35.0 - 47.0 % LAB HEMETOLOGY METHOD 06/09/2024 11:24 AM [facility] LAB MCV 85.3 79.0 - 98.0 FL LAB HEMETOLOGY METHOD 06/09/2024 11:24 AM [facility] LAB MCH 25.6(L) 27.0 - 32.0 pcg LAB HEMETOLOGY METHOD 06/09/2024 11:24 AM [facility] LAB MCHC 30.1(L) 32.0 - 37.0 g/dL LAB HEMETOLOGY METHOD 06/09/2024 11:24 AM [facility] LAB RDW 16.5(H) 11.0 - 15.0 % LAB HEMETOLOGY METHOD 06/09/2024 11:24 AM [facility] LAB Platelets 185 130 - 400 K/mcL LAB HEMETOLOGY METHOD 06/09/2024 11:24 AM [facility] LAB MPV 13.0(H) 7.0 - 11.0 FL LAB HEMETOLOGY METHOD 06/09/2024 11:24 AM [facility] LAB NRBC 0.0 <1.0 % LAB HEMETOLOGY METHOD 06/09/2024 11:24 AM [facility] LAB NRBC Absolute 0.00 <0.10 K/mcL LAB HEMETOLOGY METHOD 06/09/2024 11:24 AM EST [facility] Blood Venous blood specimen / Unknown Venipuncture / Unknown 06/09/2024 7:19 AM EST 06/09/2024 10:24 AM EST Lauren Garcia MD LAB BLOOD ORDERABLES Fin al Result [facility] ([facility] [address] [place] [address], documented in this encounter Visit Diagnoses Diagnosis Altered mental status, unspecified Vitamin D deficiency, unspecified documented in this encounter Additional Health Concerns Infection Onset Date Last Indicated Resolved Time 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
--- OUTSIDE RECORDS SUMMARY | 2025-02-16 01:52 | XMS_ITS | Encounter Summary ---
Author Organization [facility] Address [address] [place] [address] Care Team Providers Care Brand Lead Name Role Phone Lauren Garcia MD Primary Care Provider + Encounter Details Date Type Department Care Team (Late st Contact Info) Description 06/11/2024 Lab Requisition [facility] - Main Lab 299 [facility] [place] [address] Lauren Garcia MD [address] [phone] Essential (primary) hypertension Social History Tobacco Use [...] Associated Diagnosis Comments COMPLETE BLOOD COUNT Routine 06/13/2024 5:32 AM EST Essential (primary) hypertension BASIC METABOLIC PANEL Routine 06/13/2024 5:32 AM EST Essential (primary) hypertension documented in this encounter Results * (ABNORMAL) Basic metabolic panel (06/13/2024 5:32 AM EST) Sodium 138 133 - 145 mmol/L LAB CHEMISTRY METHOD 06/13/2024 11:30 AM EST [facility] Potassium 3.9 3.5 - 5.5 mmol/L LAB CHEMISTRY METHOD 06/13/2024 11:30 AM EST [facility] Chloride 104 96 - 110 mmol/L LAB CHEMISTRY METHOD 06/13/2024 11:30 AM [facility] CO2 28 21 - 32 mmol/L LAB CHEMISTRY METHOD 06/13/2024 11:30 AM [facility] Anion Gap 6 3 - 11 LAB CHEMISTRY METHOD 06/13/2024 11:30 AM [facility] Glucose 72 70 - 100 mg/dL LAB CHEMISTRY METHOD 06/13/2024 11:30 AM [facility] BUN 45(H) 5 - 25 mg/dL LAB CHEMISTRY METHOD 06/13/2024 11:30 AM [facility] Creatinine 1.32(H) 0.50 - 1.10 mg/dL LAB CHEMISTRY METHOD 06/13/2024 11:30 AM [facility] eGFR 39(L) >=60 mL/min/1. 73m2 LAB CHEMISTRY METHOD 06/13/2024 11:30 AM [facility] Comment:Calculation based on the Chronic Kidney Disease Epidemiology Collaboration (CKD-EPI) equation refit without adjustment for race. BUN/Creatinine Ratio 34.1 LAB CHEMISTRY METHOD 06/13/2024 11:30 AM [facility] Calcium 9.5 8.5 - 10.5 mg/dL LAB CHEMISTRY METHOD 06/13/2024 11:30 AM [facility] Blood Venous blood specimen / Unknown Venipuncture / Unknown 06/13/2024 5:32 AM EST 06/13/2024 10:14 AM EST us Lauren Garcia MD LAB BLOOD ORDERABLES Fin al Result [facility] [address] [place] [address], * (ABNORMAL) Complete blood count (06/13/2024 5:32 AM EST) WBC 8.2 4.8 - 10.8 K/mcL LAB HEMETOLOGY METHOD 06/13/2024 10:40 AM [facility] RBC 3.70(L) 3.80 - 4.80 M/mcL LAB HEMETOLOGY METHOD 06/13/2024 10:40 AM [facility] Hemoglobin 9.5(L) 11.5 - 16.0 g/dL LAB HEMETOLOGY METHOD 06/13/2024 10:40 AM [facility] Hematocrit 31.9(L) 35.0 - 47.0 % LAB HEMETOLOGY METHOD 06/13/2024 10:40 AM [facility] MCV 86.9 79.0 - 98.0 FL LAB HEMETOLOGY METHOD 06/13/2024 10:40 AM [facility] MCH 25.9(L) 27.0 - 32.0 pcg LAB HEMETOLOGY METHOD 06/13/2024 10:40 AM [facility] MCHC 29.8(L) 32.0 - 37.0 g/dL LAB HEMETOLOGY METHOD 06/13/2024 10:40 AM [facility] RDW 16.6(H) 11.0 - 15.0 % LAB HEMETOLOGY METHOD 06/13/2024 10:40 AM [facility] Platelets 168 130 - 400 K/mcL LAB HEMETOLOGY METHOD 06/13/2024 10:40 AM [facility] MPV 12.2(H) 7.0 - 11.0 FL LAB HEMETOLOGY METHOD 06/13/2024 10:40 AM [facility] NRBC 0.0 <1.0 % LAB HEMETOLOGY METHOD 06/13/2024 10:40 AM [facility] NRBC Absolute 0.00 <0.10 K/mcL LAB HEMETOLOGY METHOD 06/13/2024 10:40 AM [facility] Blood Venous blood specimen / Unknown Venipuncture / Unknown 06/13/2024 5:32 AM EST 06/13/2024 10:14 AM EST Lauren Garcia MD LAB BLOOD ORDERABLES Fin al Result [facility] ([facility]) [facility] [address] [place] [address], documented in this encounter Visit Diagnoses Diagnosis Essential (primary) hypertension Unspecified essential hypertension documented in this encounter Additional Health Concerns Infection Onset Date Last Indicated Resolved Time VRE 05/08/2024 05/08/2024 documented as of this encounter Care Teams Brand Lead Relationship Specialty Start Date End Date Lauren Garcia MD [address] [address] PCP - General Family Medicine 04/15/24 documented as of this encounter
--- OUTSIDE RECORDS SUMMARY | 2025-02-16 01:52 | XMS_ITS | Encounter Summary ---
Author Organization [facility] Address [address] [place] [address] Care Team Providers Care Broach Grinder Name Role Phone Lauren Garcia MD Primary Care Provider + Encounter Details Date Type Department Care Team (Late st Contact Info) Description 05/23/2024 Lab Requisition [facility] - Main Lab 299 [facility] [place] [address] Lauren Garcia MD [address] [phone] Anemia, unspecified Social History Tobacco Use Types Packs/Day [...] Associated Diagnosis Comments COMPLETE BLOOD COUNT Routine 05/23/2024 7:02 AM EST Anemia, unspecified BASIC METABOLIC PANEL Routine 05/23/2024 7:02 AM EST Anemia, unspecified documented in this encounter Results * (ABNORMAL) Basic metabolic panel (05/23/2024 7:02 AM EST) Sodium 140 133 - 145 mmol/L LAB CHEMISTRY METHOD 05/23/2024 2:24 PM EST [facility] Potassium 4.0 3.5 - 5.5 mmol/L LAB CHEMISTRY METHOD 05/23/2024 2:24 PM EST [facility] Chloride 108 96 - 110 mmol/L LAB CHEMISTRY METHOD 05/23/2024 2:24 PM [facility] CO2 25 21 - 32 mmol/L LAB CHEMISTRY METHOD 05/23/2024 2:24 PM [facility] Anion Gap 7 3 - 11 LAB CHEMISTRY METHOD 05/23/2024 2:24 PM [facility] Glucose 79 70 - 100 mg/dL LAB CHEMISTRY METHOD 05/23/2024 2:24 PM [facility] BUN 20 5 - 25 mg/dL LAB CHEMISTRY METHOD 05/23/2024 2:24 PM [facility] Creatinine 0.96 0.50 - 1.10 mg/dL LAB CHEMISTRY METHOD 05/23/2024 2:24 PM [facility] eGFR 57(L) >=60 mL/min/1. 73m2 LAB CHEMISTRY METHOD 05/23/2024 2:24 PM [facility] Comment:Calculation based on the Chronic Kidney Disease Epidemiology Collaboration (CKD-EPI) equation refit without adjustment for race. BUN/Creatinine Ratio 20.8 LAB CHEMISTRY METHOD 05/23/2024 2:24 PM [facility] Calcium 9.6 8.5 - 10.5 mg/dL LAB CHEMISTRY METHOD 05/23/2024 2:24 PM [facility] Blood Venous blood specimen / Unknown Venipuncture / Unknown 05/23/2024 7:02 AM EST 05/23/2024 12:18 PM EST us Lauren Garcia MD LAB BLOOD ORDERABLES Fin al Result [facility] [address] [place] [address], * (ABNORMAL) Complete blood count (05/23/2024 7:02 AM EST) WBC 5.6 4.8 - 10.8 K/[facility] LAB HEMETOLOGY METHOD 05/23/2024 1:39 PM [facility] RBC 3.80 3.80 - 4.80 M/mcL LAB HEMETOLOGY METHOD 05/23/2024 1:39 PM [facility] Hemoglobin 9.8(L) 11.5 - 16.0 g/dL LAB HEMETOLOGY METHOD 05/23/2024 1:39 PM [facility] Hematocrit 33.7(L) 35.0 - 47.0 % LAB HEMETOLOGY METHOD 05/23/2024 1:39 PM [facility] MCV 87.8 79.0 - 98.0 FL LAB HEMETOLOGY METHOD 05/23/2024 1:39 PM [facility] MCH 25.5(L) 27.0 - 32.0 pcg LAB HEMETOLOGY METHOD 05/23/2024 1:39 PM [facility] MCHC 29.1(L) 32.0 - 37.0 g/dL LAB HEMETOLOGY METHOD 05/23/2024 1:39 PM [facility] RDW 14.9 11.0 - 15.0 % LAB HEMETOLOGY METHOD 05/23/2024 1:39 PM [facility] Platelets 158 130 - 400 K/mcL LAB HEMETOLOGY METHOD 05/23/2024 1:39 PM [facility] MPV 11.0 7.0 - 11.0 FL LAB HEMETOLOGY METHOD 05/23/2024 1:39 PM [facility] NRBC 0.0 <1.0 % LAB HEMETOLOGY METHOD 05/23/2024 1:39 PM [facility] NRBC Absolute 0.00 <0.10 K/mcL LAB HEMETOLOGY METHOD 05/23/2024 1:39 PM [facility] Blood Venous blood specimen / Unknown Venipuncture / Unknown 05/23/2024 7:02 AM EST 05/23/2024 12:18 PM EST Lauren Garcia MD LAB BLOOD ORDERABLES Fin al Result [facility] ([facility]) [facility] [address] [place] [address], documented in this encounter Visit Diagnoses Diagnosis Anemia, unspecified documented in this encounter Additional Health Concerns Infection Onset Date Last Indicated Resolved Time VRE 05/08/2024 05/08/2024 documented as of this encounter Care Teams Broach Grinder Relationship Specialty Start Date End Date Lauren Garcia MD [address] [phone] PCP - General Family Medicine 04/15/24 documented as of this encounter
--- OUTSIDE RECORDS SUMMARY | 2025-02-16 01:53 | XMS_ITS | Encounter Summary ---
Author Organization [facility] Address [address] [place] [address] Care Team Providers Care Laborer Cement Gun Placing Name Role Phone Lauren Garcia MD Primary Care Provider + Encounter Details Date Type Department Care Team (Late st Contact Info) Description 05/09/2024 Lab Requisition [facility] - Main Lab 299 [facility] [place] [address] Lauren Garcia MD 819 [facility] 1 [place], [place] [phone] Frequency of micturition Social History Tobacco Use Types Packs/Day Years [...] Diagnosis Comments URINALYSIS WITH REFLEX MICROSCOPIC Routine 05/08/2024 8:00 PM EST Frequency of micturition URINALYSIS WITH REFLEX MICROSCOPIC AND CULTURE Routine 05/08/2024 8:00 PM EST Frequency of micturition URINALYSIS WITH REFLEX MICROSCOPIC Routine 05/08/2024 8:00 PM EST Frequency of micturition URINALYSIS WITH REFLEX MICROSCOPIC AND CULTURE Routine 05/08/2024 8:00 PM EST Frequency of micturition CULTURE URINE Routine 05/08/2024 8:00 PM EST Frequency of micturition documented in this encounter Results * (ABNORMAL) Urinalysis with reflex microscopic (05/08/2024 8:00 PM EST) Specific [place] Urine 1.017 1.003 - 1.030 LAB URINALYSIS - AUTOMATED METHOD 05/09/2024 11:42 AM [facility] pH, Urine 5.5 5.0 - 8.0 pH LAB URINALYSIS - AUTOMATED METHOD 05/09/2024 11:42 AM [facility] Leukocytes, Urine Large(A) Negative LAB URINALYSIS - AUTOMATED METHOD 05/09/2024 11:42 AM [facility] Nitrite, Urine Negative Negative LAB URINALYSIS - AUTOMATED METHOD 05/09/2024 11:42 AM [facility] Protein, Urine 100(A) <=Trace mg/dL LAB URINALYSIS - AUTOMATED METHOD 05/09/2024 11:42 AM [facility] Glucose, Urine Negative Negative mg/dL LAB URINALYSIS - AUTOMATED METHOD 05/09/2024 11:42 AM [facility] Ketones, Urine Negative Negative mg/dL LAB URINALYSIS - AUTOMATED METHOD 05/09/2024 11:42 AM [facility] Urobilinogen, Urine 0.2 0.2 - 1.0 mg/dL LAB URINALYSIS - AUTOMATED METHOD 05/09/2024 11:42 AM [facility] Bilirubin, Urine Negative Negative LAB URINALYSIS - AUTOMATED METHOD 05/09/2024 11:42 AM [facility] Blood, Urine Trace(A) Negative LAB URINALYSIS - AUTOMATED METHOD 05/09/2024 11:42 AM [facility] RBC, Urine 5.9(H) 0 - 4 /HPF LAB URINALYSIS - AUTOMATED METHOD 05/09/2024 11:42 AM [facility] WBC, Urine 359.9(H) 0 - 4 /HPF LAB URINALYSIS - AUTOMATED METHOD 05/09/2024 11:42 AM [facility] Squamous Epithelial, Urine 4 0 - 60 /LPF LAB URINALYSIS - AUTOMATED METHOD 05/09/2024 11:42 AM EST [facility] Bacteria, Urine Many(A) Negative /HPF LAB URINALYSIS - AUTOMATED METHOD 05/09/2024 11:42 AM EST [facility] Hyaline Casts, Urine 0.4 0 - 3 /LPF LAB URINALYSIS - AUTOMATED METHOD 05/09/2024 11:42 AM EST [facility] Urine Urine specimen from urethra / Unknown 05/08/2024 8:00 PM EST 05/09/2024 10:56 AM EST us Lauren Garcia MD LAB URINE ORDERABLES Fin al Result [facility] [address] [place] [address], * (ABNORMAL) Culture urine (05/08/2024 8:00 PM EST) Culture, Urine 10,000-49,000 CFU/mL Caryl tropicalis(A) JULISSA 05/13/2024 11:12 AM EST [facility] Comment: The organism value for this result has been updated. These results have been appended to the previously preliminary verified report. Edited result: Previously reported as Yeast on 05/12/2024 at 0916 EST. 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) JULISSA 05/13/2024 11:12 AM EST [facility] Comment: The organism value for this result has been updated. These results have been appended to the previously preliminary verified report. Edited result: Previously reported as Gram Positive Cocci on 05/11/2024 at 1158 EST. Urine Urine specimen from urethra / Unknown 05/08/2024 8:00 PM EST 05/09/2024 11:18 AM EST Narrative Organism Antibiotic Method Susceptibility Vancomycin resistant Enterococcus faecium Benzylpenicillin JULISSA >=64 ug/ml: Resistant Vancomycin resistant Enterococcus faecium Ampicillin JULISSA >=32 ug/ml: Resistant Vancomycin resistant Enterococcus faecium Ciprofloxacin JULISSA >=8 ug/ml: Resistant Vancomycin resistant Enterococcus faecium Levofloxacin JULISSA >=8 ug/ml: Resistant Vancomycin resistant Enterococcus faecium Quinupristin/Dalfopristin JULISSA 0.5 ug/ml: Susceptible Vancomycin resistant Enterococcus faecium Linezolid JULISSA 2 ug/ml: Susceptible Vancomycin resistant Enterococcus faecium Vancomycin JULISSA >=32 ug/ml: Resistant Vancomycin resistant Enterococcus faecium Tetracycline JULISSA >=16 ug/ml: Resistant Vancomycin resistant Enterococcus faecium Nitrofurantoin JULISSA 128 ug/ml: Resistant us Lauren Garcia MD LAB MICROBIOLOGY - GENER AL ORDERABLES Final Result [facility] [address] [place] [address], [place] [phone] * (ABNORMAL) Urinalysis with reflex microscopic and culture (05/08/2024 8:00 PM EST) Specific [place] Urine 1.017 1.003 - 1.030 LAB URINALYSIS - AUTOMATED METHOD 05/09/2024 11:18 AM [facility] pH, Urine 5.5 5.0 - 8.0 pH LAB URINALYSIS - AUTOMATED METHOD 05/09/2024 11:18 AM [facility] Leukocytes, Urine Large(A) Negative LAB URINALYSIS - AUTOMATED METHOD 05/09/2024 11:18 AM [facility] Nitrite, Urine Negative Negative LAB URINALYSIS - AUTOMATED METHOD 05/09/2024 11:18 AM [facility] Protein, Urine 100(A) <=Trace mg/dL LAB URINALYSIS - AUTOMATED METHOD 05/09/2024 11:18 AM [facility] Glucose, Urine Negative Negative mg/dL LAB URINALYSIS - AUTOMATED METHOD 05/09/2024 11:18 AM [facility] Ketones, Urine Negative Negative mg/dL LAB URINALYSIS - AUTOMATED METHOD 05/09/2024 11:18 AM [facility] Urobilinogen, Urine 0.2 0.2 - 1.0 mg/dL LAB URINALYSIS - AUTOMATED METHOD 05/09/2024 11:18 AM [facility] Bilirubin, Urine Negative Negative LAB URINALYSIS - AUTOMATED METHOD 05/09/2024 11:18 AM [facility] Blood, Urine Trace(A) Negative LAB URINALYSIS - AUTOMATED METHOD 05/09/2024 11:18 AM [facility] RBC, Urine 5.9(H) 0 - 4 /HPF LAB URINALYSIS - AUTOMATED METHOD 05/09/2024 11:18 AM [facility] WBC, Urine 359.9(H) 0 - 4 /HPF LAB URINALYSIS - AUTOMATED METHOD 05/09/2024 11:18 AM [facility] Squamous Epithelial, Urine 4 0 - 60 /LPF LAB URINALYSIS - AUTOMATED METHOD 05/09/2024 11:18 AM [facility] Bacteria, Urine Many(A) Negative /HPF LAB URINALYSIS - AUTOMATED METHOD 05/09/2024 11:18 AM [facility] Hyaline Casts, Urine 0.4 0 - 3 /LPF LAB URINALYSIS - AUTOMATED METHOD 05/09/2024 11:18 AM [facility] Urine Urine specimen from urethra / Unknown 05/08/2024 8:00 PM EST 05/09/2024 10:56 AM EST us Lauren Garcia MD LAB URINE ORDERABLES Fin al Result [facility] [address] [place] [address], documented in this encounter Visit Diagnoses Diagnosis Frequency of micturition Urinary frequency documented in this encounter Additional Health Concerns Infection Onset Date Last Indicated Resolved Time VRE 05/08/2024 05/08/2024 documented as of this encounter Care Teams Laborer Cement Gun Placing Relationship Specialty Start Date End Date Lauren Garcia MD 9 [place] [address] PCP - General Family Medicine 04/15/24 documented as of this encounter
--- OUTSIDE RECORDS SUMMARY | 2025-02-16 01:53 | XMS_ITS | Clinical Summary ---
Author Organization [address] Address [address] [place] [phone] Phone Care Team Providers Care Head Of Talent Management Name Role Phone Elder, Lauren Salvador MD Primary Care Provider + Social History Tobacco Use Types Packs/Day Years Used Date Smoking Tobacco: Never Assessed Comments Unknown Sex and Gender Information Value Date Recorded Sex Assigned at Not on file Legal Sex Female 11:30 PM EST Gender Identity Not on file Sexual Orientation Not on file Plan of Treatment Health Maintenance Due Date Last Done Comments DTaP,Tdap,and Td Vaccines (1 - Tdap) 09/17/1954 Pneumococcal Vaccine: 50+ Ye ars (1 of 1 - PCV) 1986 Zoster Vaccines (1 of 2) 1986 RSV Immunization Adult Patie nts (1 - 1-dose 75+ series) 09/17/2011 Falls Risk Assessment 04/15/2024 Medicare Annual Wellness Visit 04/15/2024 Osteoporosis Screening (Bone Density Screening) 04/15/2024 Social Influencers of Health Screening 04/15/2024 Depression Screening 05/04/2024 COVID-19 Vaccine ( - 2023-2 5 season) 2025 Influenza Vaccine (#1) 2025 HIB Vaccines Aged Out No longer eligi ble based on patient's age to complete this topic HPV Vaccines Aged Out No longer eligi ble based on patient's age to complete this topic Hepatitis A Vaccines Aged Out No long er eligible based on patient's age to complete this topic Hepatitis B Vaccines Aged Out No long er eligible based on patient's age to complete this topic IPV Vaccines Aged Out No longer eligi ble based on patient's age to complete this topic MMR Vaccines Aged Out No longer eligi ble based on patient's age to complete this topic Meningococcal ACWY Vaccine Aged Out N o longer eligible based on patient's age to complete this topic Meningococcal B Vaccine Aged Out No l onger eligible based on patient's age to complete this topic RSV Immunization Patients Un kika 20 months Aged Out No longer eligible b ased on patient's age to complete this topic Varicella Vaccines Aged Out No longer eligible based on patient's age to complete this topic Additional Health Concerns Infection Onset Date Last Indicated VRE 05/08/2024 05/08/2024 Insurance MEDICARE [facility] Care Teams Head Of Talent Management Relationship Specialty Start Date End Date Lauren Garcia MD [address] [address] PCP - General Family Medicine 04/15/24
--- OUTSIDE RECORDS SUMMARY | 2025-02-16 01:53 | XMS_ITS | Encounter Summary ---
Author Organization [facility] Address [address] [place] [address] Care Team Providers Care Darkroom Technician Name Role Phone Lauren Garcia MD Primary Care Provider + Encounter Details Date Type Department Care Team (Late st Contact Info) Description 06/25/2024 Lab Requisition [facility] - Main Lab 299 [facility] [place] [address] Lauren Garcia MD [address] [phone] Essential (primary) hypertension Social History Tobacco Use [...] Associated Diagnosis Comments COMPLETE BLOOD COUNT Routine 06/27/2024 7:52 AM EST Essential (primary) hypertension BASIC METABOLIC PANEL Routine 06/27/2024 7:52 AM EST Essential (primary) hypertension documented in this encounter Results * (ABNORMAL) Basic metabolic panel (06/27/2024 7:52 AM EST) Sodium 142 133 - 145 mmol/L LAB CHEMISTRY METHOD 06/27/2024 1:02 PM EST [facility] Potassium 4.0 3.5 - 5.5 mmol/L LAB CHEMISTRY METHOD 06/27/2024 1:02 PM EST [facility] Chloride 110 96 - 110 mmol/L LAB CHEMISTRY METHOD 06/27/2024 1:02 PM [facility] CO2 21 21 - 32 mmol/L LAB CHEMISTRY METHOD 06/27/2024 1:02 PM [facility] Anion Gap 11 3 - 11 LAB CHEMISTRY METHOD 06/27/2024 1:02 PM [facility] Glucose 86 70 - 100 mg/dL LAB CHEMISTRY METHOD 06/27/2024 1:02 PM [facility] BUN 13 5 - 25 mg/dL LAB CHEMISTRY METHOD 06/27/2024 1:02 PM [facility] Creatinine 1.04 0.50 - 1.10 mg/dL LAB CHEMISTRY METHOD 06/27/2024 1:02 PM [facility] eGFR 52(L) >=60 mL/min/1. 73m2 LAB CHEMISTRY METHOD 06/27/2024 1:02 PM [facility] Comment:Calculation based on the Chronic Kidney Disease Epidemiology Collaboration (CKD-EPI) equation refit without adjustment for race. BUN/Creatinine Ratio 12.5 LAB CHEMISTRY METHOD 06/27/2024 1:02 PM [facility] Calcium 9.9 8.5 - 10.5 mg/dL LAB CHEMISTRY METHOD 06/27/2024 1:02 PM [facility] Blood Venous blood specimen / Unknown Venipuncture / Unknown 06/27/2024 7:52 AM EST 06/27/2024 11:50 AM EST us Lauren Garcia MD LAB BLOOD ORDERABLES Fin al Result [facility] [address] [place] [address], * (ABNORMAL) Complete blood count (06/27/2024 7:52 AM EST) WBC 5.2 4.8 - 10.8 K/mcL LAB HEMETOLOGY METHOD 06/27/2024 1:02 PM [facility] RBC 4.30 3.80 - 4.80 M/mcL LAB HEMETOLOGY METHOD 06/27/2024 1:02 PM [facility] Hemoglobin 11.0(L) 11.5 - 16.0 g/dL LAB HEMETOLOGY METHOD 06/27/2024 1:02 PM [facility] Hematocrit 38.7 35.0 - 47.0 % LAB HEMETOLOGY METHOD 06/27/2024 1:02 PM [facility] MCV 90.6 79.0 - 98.0 FL LAB HEMETOLOGY METHOD 06/27/2024 1:02 PM [facility] MCH 25.8(L) 27.0 - 32.0 pcg LAB HEMETOLOGY METHOD 06/27/2024 1:02 PM [facility] MCHC 28.4(L) 32.0 - 37.0 g/dL LAB HEMETOLOGY METHOD 06/27/2024 1:02 PM [facility] RDW 17.4(H) 11.0 - 15.0 % LAB HEMETOLOGY METHOD 06/27/2024 1:02 PM [facility] Platelets 330 130 - 400 K/mcL LAB HEMETOLOGY METHOD 06/27/2024 1:02 PM [facility] MPV 12.0(H) 7.0 - 11.0 FL LAB HEMETOLOGY METHOD 06/27/2024 1:02 PM [facility] NRBC 0.0 <1.0 % LAB HEMETOLOGY METHOD 06/27/2024 1:02 PM [facility] NRBC Absolute 0.00 <0.10 K/mcL LAB HEMETOLOGY METHOD 06/27/2024 1:02 PM [facility] Blood Venous blood specimen / Unknown Venipuncture / Unknown 06/27/2024 7:52 AM EST 06/27/2024 11:50 AM EST us Lauren Garcia MD LAB BLOOD ORDERABLES Fin al Result [facility] ([facility]) [facility] [address] [place] [address], documented in this encounter Visit Diagnoses Diagnosis Essential (primary) hypertension Unspecified essential hypertension documented in this encounter Additional Health Concerns Infection Onset Date Last Indicated Resolved Time 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
--- OUTSIDE RECORDS SUMMARY | 2025-02-16 01:53 | XMS_ITS | Encounter Summary ---
Author Organization [facility] Address [address] [place] [address] Care Team Providers Care Aircraft Engine Cylinder Mechanic Name Role Phone Lauren Garcia MD Primary Care Provider + Encounter Details Date Type Department Care Team (Late st Contact Info) Description 05/11/2024 Lab Requisition [facility] - Main Lab [address] [facility] [place] [address] Lauren Garcia MD 819 [facility] 1 [place], [place] [id number] Chronic kidney disease, unspecified; Essential (primary) hypertension; Displaced comminuted fracture of shaft of right tibia, subsequent encounter for closed fracture with routine healing Social History Tobacco Use Types Packs/Day Years [...] Associated Diagnosis Comments COMPLETE BLOOD COUNT Routine 05/11/2024 6:33 AM EST Chronic kidney disease, unspecified Essential (primary) hypertension Displaced comminuted fracture of shaft of right tibia, subsequent encounter for closed fracture with routine healing BASIC METABOLIC PANEL Routine 05/11/2024 6:33 AM EST Chronic kidney disease, unspecified Essential (primary) hypertension Displaced comminuted fracture of shaft of right tibia, subsequent encounter for closed fracture with routine healing documented in this encounter Results * (ABNORMAL) Basic metabolic panel (05/11/2024 6:33 AM EST) Sodium 136 133 - 145 mmol/L LAB CHEMISTRY METHOD 05/11/2024 10:09 AM [facility] Potassium 5.0 3.5 - 5.5 mmol/L LAB CHEMISTRY METHOD 05/11/2024 10:09 AM [facility] Chloride 105 96 - 110 mmol/L LAB CHEMISTRY METHOD 05/11/2024 10:09 AM [facility] CO2 25 21 - 32 mmol/L LAB CHEMISTRY METHOD 05/11/2024 10:09 AM [facility] Anion Gap 6 3 - 11 LAB CHEMISTRY METHOD 05/11/2024 10:09 AM [facility] Glucose 130(H) 70 - 100 mg/dL LAB CHEMISTRY METHOD 05/11/2024 10:09 AM [facility] BUN 24 5 - 25 mg/dL LAB CHEMISTRY METHOD 05/11/2024 10:09 AM [facility] Creatinine 1.13(H) 0.50 - 1.10 mg/dL LAB CHEMISTRY METHOD 05/11/2024 10:09 AM [facility] eGFR 47(L) >=60 mL/min/1. 73m2 LAB CHEMISTRY METHOD 05/11/2024 10:09 AM [facility] Comment:Calculation based on the Chronic Kidney Disease Epidemiology Collaboration (CKD-EPI) equation refit without adjustment for race. BUN/Creatinine Ratio 21.2 LAB CHEMISTRY METHOD 05/11/2024 10:09 AM [facility] Calcium 9.7 8.5 - 10.5 mg/dL LAB CHEMISTRY METHOD 05/11/2024 10:09 AM [facility] Blood Venous blood specimen / Unknown Venipuncture / Unknown 05/11/2024 6:33 AM EST 05/11/2024 9:28 AM EST us Lauren Garcia MD LAB BLOOD ORDERABLES Fin al Result [facility] [address] [place] [address], * (ABNORMAL) Complete blood count (05/11/2024 6:33 AM EST) [facility] WBC 9.1 4.8 - 10.8 K/mcL LAB HEMETOLOGY METHOD 05/11/2024 9:52 AM [facility] RBC 4.70 3.80 - 4.80 M/mcL LAB HEMETOLOGY METHOD 05/11/2024 9:52 AM [facility] Hemoglobin 11.6 11.5 - 16.0 g/dL LAB HEMETOLOGY METHOD 05/11/2024 9:52 AM [facility] Hematocrit 40.5 35.0 - 47.0 % LAB HEMETOLOGY METHOD 05/11/2024 9:52 AM [facility] MCV 87.1 79.0 - 98.0 FL LAB HEMETOLOGY METHOD 05/11/2024 9:52 AM [facility] MCH 24.9(L) 27.0 - 32.0 pcg LAB HEMETOLOGY METHOD 05/11/2024 9:52 AM [facility] MCHC 28.6(L) 32.0 - 37.0 g/dL LAB HEMETOLOGY METHOD 05/11/2024 9:52 AM [facility] RDW 14.3 11.0 - 15.0 % LAB HEMETOLOGY METHOD 05/11/2024 9:52 AM [facility] Platelets 225 130 - 400 K/mcL LAB HEMETOLOGY METHOD 05/11/2024 9:52 AM [facility] MPV 12.1(H) 7.0 - 11.0 FL LAB HEMETOLOGY METHOD 05/11/2024 9:52 AM [facility] NRBC 0.0 <1.0 % LAB HEMETOLOGY METHOD 05/11/2024 9:52 AM [facility] NRBC Absolute 0.00 <0.10 K/mcL LAB HEMETOLOGY METHOD 05/11/2024 9:52 AM EST [facility] Blood Venous blood specimen / Unknown Venipuncture / Unknown 05/11/2024 6:33 AM EST 05/11/2024 9:28 AM EST us Lauren Garcia MD LAB BLOOD ORDERABLES Fin al Result [facility] [address] [place] [address], documented in this encounter Visit Diagnoses Diagnosis Chronic kidney disease, unspecified Essential (primary) hypertension Unspecified essential hypertension Displaced comminuted fracture of shaft of right tibia, subsequent encounter for closed fracture with routine healing documented in this encounter Additional Health Concerns Infection Onset Date Last Indicated Resolved Time VRE 05/08/2024 05/08/2024 documented as of this encounter Care Teams Aircraft Engine Cylinder Mechanic Relationship Specialty Start Date End Date Lauren Garcia MD [address] [address] PCP - General Family Medicine 04/15/24 documented as of this encounter
--- OUTSIDE RECORDS SUMMARY | 2025-02-16 01:53 | XMS_ITS | Encounter Summary ---
Author Organization [employer] Address [address] [place] [address] Care Team Providers Care Technician Helper Instrument Name Role Phone Lauren Garcia MD Primary Care Provider + Encounter Details Date Type Department Care Team (Late st Contact Info) Description 04/15/2024 Lab Requisition [facility] - Main Lab 299 [facility] [place] [address] Lauren Garcia MD 819 [facility] 1 [place], [place] [id number] Vitamin D deficiency, unspecified; Pathological fracture, right tibia, initial encounter for fracture; Hypothyroidism, unspecified; Essential (primary) hypertension Social History Tobacco [...] Diagnosis Comments VITAMIN D 25 HYDROXY Routine 04/15/2024 7:06 AM EST Pathological fracture, right tibia, initial encounter for fracture Hypothyroidism, unspecified Essential (primary) hypertension Vitamin D deficiency, unspecified COMPLETE BLOOD COUNT Routine 04/15/2024 7:06 AM EST Pathological fracture, right tibia, initial encounter for fracture Hypothyroidism, unspecified Essential (primary) hypertension Vitamin D deficiency, unspecified THYROID STIMULATING HORMONE Routine 04/15/2024 7:06 AM EST Pathological fracture, right tibia, initial encounter for fracture Hypothyroidism, unspecified Essential (primary) hypertension Vitamin D deficiency, unspecified MAGNESIUM Routine 04/15/2024 7:06 AM EST Pathological fracture, right tibia, initial encounter for fracture Hypothyroidism, unspecified Essential (primary) hypertension Vitamin D deficiency, unspecified FOLATE Routine 04/15/2024 7:06 AM EST Pathological fracture, right tibia, initial encounter for fracture Hypothyroidism, unspecified Essential (primary) hypertension Vitamin D deficiency, unspecified VITAMIN B12 Routine 04/15/2024 7:06 AM EST Pathological fracture, right tibia, initial encounter for fracture Hypothyroidism, unspecified Essential (primary) hypertension Vitamin D deficiency, unspecified BASIC METABOLIC PANEL Routine 04/15/2024 7:06 AM EST Pathological fracture, right tibia, initial encounter for fracture Hypothyroidism, unspecified Essential (primary) hypertension Vitamin D deficiency, unspecified documented in this encounter Results * (ABNORMAL) Vitamin D 25 hydroxy (04/15/2024 7:06 AM EST) Vit D, 25-Hydroxy 17.2(L) 30.0 - 80.0 ng/mL LAB CHEMISTRY METHOD 04/15/2024 10:58 AM EST [facility] Blood Venous blood specimen / Unknown Venipuncture / Unknown 04/15/2024 7:06 AM EST 04/15/2024 8:53 AM EST Lauren Garcia MD LAB BLOOD ORDERABLES Fin al Result [facility] [address] [place] [address], * Vitamin B12 (04/15/2024 7:06 AM EST) Vitamin B-12 315 250 - 900 pcg/mL LAB CHEMISTRY METHOD 04/15/2024 11:36 AM EST [facility] Blood Venous blood specimen / Unknown Venipuncture / Unknown 04/15/2024 7:06 AM EST 04/15/2024 8:53 AM EST Lauren Garcia MD LAB BLOOD ORDERABLES Fin al Result Performing Organization Address City/[facility]/ZIP Co de Phone Number [facility] [address] [place] [address], * (ABNORMAL) Magnesium (04/15/2024 7:06 AM EST) Pathologist [facility] Magnesium 1.8(L) 1.9 - 2.6 mg/dL LAB CHEMISTRY METHOD 04/15/2024 10:58 AM EST [facility] Blood Venous blood specimen / Unknown Venipuncture / Unknown 04/15/2024 7:06 AM EST 04/15/2024 8:53 AM EST Lauren Garcia MD LAB BLOOD ORDERABLES Fin al Result Performing Organization Address [facility]/ZIP Co de Phone Number [facility] [address] [place] [address], * Folate (04/15/2024 7:06 AM EST) Pathologist [facility] Folate 12.3 2.8 - 17.0 ng/ml LAB CHEMISTRY METHOD 04/15/2024 11:36 AM EST [facility] Blood Venous blood specimen / Unknown Venipuncture / Unknown 04/15/2024 7:06 AM EST 04/15/2024 8:53 AM EST Lauren Garcia MD LAB BLOOD ORDERABLES Fin al Result Performing Organization Address City/[facility]/ZIP Co de Phone Number [facility] [address] [place] [address], * Thyroid stimulating hormone (04/15/2024 7:06 AM EST) TSH 0.65 0.40 - 4.00 mcIU/mL LAB CHEMISTRY METHOD 04/15/2024 10:58 AM EST [facility] Blood Venous blood specimen / Unknown Venipuncture / Unknown 04/15/2024 7:06 AM EST 04/15/2024 8:53 AM EST us Lauren Garcia MD LAB BLOOD ORDERABLES Fin al Result [facility] [address] [place] [address], * (ABNORMAL) Basic metabolic panel (04/15/2024 7:06 AM EST) Sodium 143 133 - 145 mmol/L LAB CHEMISTRY METHOD 04/15/2024 11:36 AM [facility] Potassium 4.3 3.5 - 5.5 mmol/L LAB CHEMISTRY METHOD 04/15/2024 11:36 AM [facility] Chloride 111(H) 96 - 110 mmol/L LAB CHEMISTRY METHOD 04/15/2024 11:36 AM [facility] CO2 22 21 - 32 mmol/L LAB CHEMISTRY METHOD 04/15/2024 11:36 AM [facility] Anion Gap 10 3 - 11 LAB CHEMISTRY METHOD 04/15/2024 11:36 AM [facility] Glucose 102(H) 70 - 100 mg/dL LAB CHEMISTRY METHOD 04/15/2024 11:36 AM [facility] BUN 35(H) 5 - 25 mg/dL LAB CHEMISTRY METHOD 04/15/2024 11:36 AM [facility] Creatinine 1.10 0.50 - 1.10 mg/dL LAB CHEMISTRY METHOD 04/15/2024 11:36 AM [facility] eGFR 49(L) >=60 mL/min/1. 73m2 LAB CHEMISTRY METHOD 04/15/2024 11:36 AM [facility] Comment:Calculation based on the Chronic Kidney Disease Epidemiology Collaboration (CKD-EPI) equation refit without adjustment for race. BUN/Creatinine Ratio 31.8 LAB CHEMISTRY METHOD 04/15/2024 11:36 AM EST [facility] Calcium 9.9 8.5 - 10.5 mg/dL LAB CHEMISTRY METHOD 04/15/2024 11:36 AM [facility] Blood Venous blood specimen / Unknown Venipuncture / Unknown 04/15/2024 7:06 AM EST 04/15/2024 8:53 AM EST us Lauren Garcia MD LAB BLOOD ORDERABLES Fin al Result [facility] [address] [place] [address], * (ABNORMAL) Complete blood count (04/15/2024 7:06 AM EST) WBC 6.8 4.8 - 10.8 K/mcL LAB HEMETOLOGY METHOD 04/15/2024 10:32 AM [facility] RBC 3.80 3.80 - 4.80 M/[facility] LAB HEMETOLOGY METHOD 04/15/2024 10:32 AM [facility] Hemoglobin 10.0(L) 11.5 - 16.0 g/dL LAB HEMETOLOGY METHOD 04/15/2024 10:32 AM [facility] Hematocrit 32.7(L) 35.0 - 47.0 % LAB HEMETOLOGY METHOD 04/15/2024 10:32 AM [facility] MCV 86.5 79.0 - 98.0 FL LAB HEMETOLOGY METHOD 04/15/2024 10:32 AM [facility] MCH 26.5(L) 27.0 - 32.0 pcg LAB HEMETOLOGY METHOD 04/15/2024 10:32 AM [facility] MCHC 30.6(L) 32.0 - 37.0 g/dL LAB HEMETOLOGY METHOD 04/15/2024 10:32 AM EST [facility] RDW 14.4 11.0 - 15.0 % LAB HEMETOLOGY METHOD 04/15/2024 10:32 AM EST [facility] Platelets 187 130 - 400 K/mcL LAB HEMETOLOGY METHOD 04/15/2024 10:32 AM [facility] MPV 12.2(H) 7.0 - 11.0 FL LAB HEMETOLOGY METHOD 04/15/2024 10:32 AM EST [facility] NRBC 0.0 <1.0 % LAB HEMETOLOGY METHOD 04/15/2024 10:32 AM [facility] NRBC Absolute 0.00 <0.10 K/mcL LAB HEMETOLOGY METHOD 04/15/2024 10:32 AM [facility] Blood Venous blood specimen / Unknown Venipuncture / Unknown 04/15/2024 7:06 AM EST 04/15/2024 8:53 AM EST Lauren Garcia MD LAB BLOOD ORDERABLES Fin al Result [facility] [address] [place] [address], documented in this encounter Visit Diagnoses Diagnosis Vitamin D deficiency, unspecified Pathological fracture, right tibia, initial encounter for fracture Hypothyroidism, unspecified Essential (primary) hypertension Unspecified essential hypertension documented in this encounter Additional Health Concerns Infection Onset Date Last Indicated Resolved Time VRE 05/08/2024 05/08/2024 documented as of this encounter Care Teams Technician Helper Instrument Relationship Specialty Start Date End Date Lauren Garcia MD [address] [place] [id number] PCP - General Family Medicine 04/15/24 documented as of this encounter
--- OUTSIDE RECORDS SUMMARY | 2025-02-16 01:53 | XMS_ITS | Encounter Summary ---
Author Organization [facility] Address [address] [place] [address] Care Team Providers Care Addiction Treatment Counselor Name Role Phone Lauren Garcia MD Primary Care Provider + Encounter Details Date Type Department Care Team (Late st Contact Info) Description 06/23/2024 Lab Requisition [facility] - Main Lab 299 [facility] [place] [address] Lauren Garcia MD [address] [id number] Chronic kidney disease, unspecified Social History Tobacco Use Types Packs/Day [...] Associated Diagnosis Comments COMPLETE BLOOD COUNT Routine 06/23/2024 8:46 AM EST Chronic kidney disease, unspecified documented in this encounter Results * (ABNORMAL) Complete blood count (06/23/2024 8:46 AM EST) WBC 5.1 4.8 - 10.8 K/[facility] LAB HEMETOLOGY METHOD 06/23/2024 11:34 AM EST [facility] RBC 4.10 3.80 - 4.80 M/[facility] LAB HEMETOLOGY METHOD 06/23/2024 11:34 AM EST [facility] Hemoglobin 10.6(L) 11.5 - 16.0 g/dL LAB HEMETOLOGY METHOD 06/23/2024 11:34 AM EST [facility] Hematocrit 36.1 35.0 - 47.0 % LAB HEMETOLOGY METHOD 06/23/2024 11:34 AM [facility] MCV 87.8 79.0 - 98.0 FL LAB HEMETOLOGY METHOD 06/23/2024 11:34 AM [facility] MCH 25.8(L) 27.0 - 32.0 pcg LAB HEMETOLOGY METHOD 06/23/2024 11:34 AM [facility] MCHC 29.4(L) 32.0 - 37.0 g/dL LAB HEMETOLOGY METHOD 06/23/2024 11:34 AM [facility] RDW 16.7(H) 11.0 - 15.0 % LAB HEMETOLOGY METHOD 06/23/2024 11:34 AM [facility] Platelets 267 130 - 400 K/mcL LAB HEMETOLOGY METHOD 06/23/2024 11:34 AM [facility] MPV 12.4(H) 7.0 - 11.0 FL LAB HEMETOLOGY METHOD 06/23/2024 11:34 AM [facility] NRBC 0.0 <1.0 % LAB HEMETOLOGY METHOD 06/23/2024 11:34 AM [facility] NRBC Absolute 0.00 <0.10 K/mcL LAB HEMETOLOGY METHOD 06/23/2024 11:34 AM [facility] Blood Venous blood specimen / Unknown Venipuncture / Unknown 06/23/2024 8:46 AM EST 06/23/2024 10:45 AM EST us Lauren Garcia MD LAB BLOOD ORDERABLES Fin al Result [facility] [address] [place] [address], documented in this encounter Visit Diagnoses Diagnosis Chronic kidney disease, unspecified documented in this encounter Additional Health Concerns Infection Onset Date Last Indicated Resolved Time VRE 05/08/2024 05/08/2024 documented as of this encounter Care Teams Addiction Treatment Counselor Relationship Specialty Start Date End Date Lauren Garcia MD [address] [address] PCP - General Family Medicine 04/15/24 documented as of this encounter
--- NOTE | 2025-02-16 02:12 | ED.FALL ---
HPI - Fall General Chief Complaint: Fall Stated Complaint: fall Time Seen by Provider: 02/16/25 01:45 Source: patient and EMS Mode of arrival: EMS Limitations: no limitations History of Present Illness ED Provider: HPI Narrative: 89-year-old woman, who is coming in from assisted living facility, she does have history of dementia but she is quite alert to self location, she lives at assisted living facility, she states that she has not intermittent dizziness however today's fall was nonsyncopal, she did not strike her head there was no LOC no neck pain, she fell and sustained bruising and pain to the left shoulder, her left ribs hurt as well as her right hip, has had no palpitations no chest pain no shortness of breath no nausea or vomiting. She is on Xarelto. Related Data Home Medications ?Medication ?Instructions ?Recorded ?Confirmed ascorbic acid (vitamin C) 250 mg 250 mg PO DAILY 11/13/24 02/09/25 tablet (Vitamin C) aspirin 81 mg tablet,delayed 81 mg PO DAILY 11/13/24 02/09/25 release atorvastatin 40 mg tablet 40 mg PO BEDTIME 11/13/24 02/09/25 cholecalciferol (vitamin D3) 50 50 mcg PO DAILY 11/13/24 02/09/25 mcg (2,000 unit) capsule (Vitamin D3) hydrochlorothiazide 12.5 mg tablet 12.5 mg PO DAILY 11/13/24 02/09/25 levothyroxine 50 mcg tablet 50 mcg PO DAILY@0600 11/13/24 02/09/25 lisinopril 10 mg tablet 15 mg PO DAILY 11/13/24 02/09/25 sertraline 50 mg tablet 75 mg PO DAILY 11/13/24 02/09/25 magnesium hydroxide 400 mg/5 mL 30 ml PO DAILY PRN Constipation 11/14/24 02/09/25 oral suspension (Milk of Magnesia) melatonin 3 mg tablet 6 mg PO BEDTIME 11/14/24 02/09/25 rivaroxaban 20 mg tablet (Xarelto) 20 mg PO DAILY@0730 11/14/24 02/09/25 sennosides 8.6 mg tablet (senna) 8.6 mg PO BID PRN Constipation 11/14/24 02/09/25 ferrous gluconate 324 mg (38 mg 324 mg PO DAILY 12/13/24 02/09/25 iron) tablet quetiapine 50 mg tablet 50 mg PO TID@0700,1200,1600 12/13/24 02/09/25 trazodone 50 mg tablet 12.5 mg PO DAILY@1600 12/13/24 02/09/25 zinc oxide 13 % topical cream 1 appl topical BID 12/13/24 02/09/25 (Desitin Daily Defense) Lactobacillus acidophilus 500 500 mmu cells PO DAILY 02/09/25 02/09/25 million cell capsule cephalexin 250 mg tablet 250 mg PO MOWEFR 02/09/25 02/09/25 cholecalciferol (vitamin D3) 1,250 1,250 mcg PO QMONTH 02/09/25 02/09/25 mcg (50,000 unit) tablet loperamide 2 mg tablet 2 mg PO Q6H PRN Loose Stool 02/09/25 02/09/25 omeprazole 20 mg capsule,delayed 20 mg PO BID@0630,1630 02/09/25 02/09/25 release Previous Rx's ?Medication ?Instructions ?Recorded sulfamethoxazole 800 1 tab PO BID #10 tabs 02/13/25 mg-trimethoprim 160 mg tablet (Bactrim DS) Allergies Allergy/AdvReac Type Severity Reaction Status Date / Time No Known Allergies Allergy Verified 02/16/25 01:45 Review of Systems Constitutional: Constitutional: Reports as per [facility] Past Medical History Medical History (Updated 02/16/25 @ 03:02 by Berto Germain DO) Dementia with agitation Aggressive behavior Hiatal hernia History of DVT (deep vein thrombosis) HTN (hypertension) Hypothyroid Recurrent UTI HLD (hyperlipidemia) Dementia Surgical History History of ankle surgery H/O colonoscopy Social History Social History Household Members: Unknown / Unable to assess Housing: Unknown / Unable to assess Housing Other:: Hari Adler Are you a primary social worker palliative care to a significant other at home: No Do you presently have visiting nurse or other home services: Yes Alcohol intake: former Patient Tobacco Use Status: Former Tobacco user Tobacco use type: Cigarette Smoked in Last 30 Days: No e-Cigarette/Vaping Use: Former Use Use of substances other than those prescribed or required for medical reasons: No Advance Directives: Yes Advance Directives on File: Yes Advance Directives Date on File: 04/19/24 Do you have a plan to hurt others: No Plan service: No Physical Exam Exam: Exam: General: ?Appears of stated age ? ?CV: RRR, no obvious murmurs appreciated ? ?Resp: ?No wheezing rales rhonchi no stridor moving air well ? Abd: ?Bowel sounds are present, no tenderness no rebound no rigidity ? ?MSK: FROM, strength 5/5 all extremities, no deformities, some tenderness along her right proximal out of thigh without bruising ? Skin: Bruising to the posterior aspect of her shoulder ? ?Neuro: ?Alert and oriented self and location, moving upper and lower extremities symmetrically, no obvious facial asymmetry noted, cranial nerves 2-12 intact Vital Signs: Vital Signs: Last Vital Signs Temp 98 F 02/16/25 01:42 Pulse 80 02/16/25 01:42 Resp 20 02/16/25 01:42 BP 140/56 H 02/16/25 01:42 Pulse Ox 95 02/16/25 01:42 O2 Del Method Room Air 02/16/25 01:42 BMI result Body Mass Index 32.2 Medications Administered Discontinued Medications Generic Name Dose Route Start Last Admin Trade Name Waiq PRN Reason Stop Dose Admin Acetaminophen 975 mg 02/16/25 02:15 02/16/25 02:50 Acetaminophen 325 Mg Tablet PO 02/16/25 02:16 975 mg ONCE ONE Administration Medical Decision Making Medical Decision Making [facility] Narrative: 2:22 AM 02/16/2025 (Dr. Berto Germain): Presented after nonsyncopal fall, has had intermittent dizziness, we will obtain ECG On blood thinners but no head injury no neck injury, she does have a bruise to the left posterior shoulder without obvious deformities and no deformities of the extremities as well but I will obtain imaging of the hip on the left side and her left-sided ribs Did not feel imaging such as CT is indicated Differential Diagnosis Differential Diagnoses: The differential diagnosis associated with the presentation includes (Head, neck injury, fracture, dislocation, syncope, dysrhythmia) Admission/Observation Consideration of admission/observation: Escalation of care including admission/observation considered Lab Data [facility] Lab Attestation statement: I reviewed the patient's lab results. Independent Interpretation I performed an independent interpretation of an: EKG (81 beats per minute otherwise normal ECG without dysrhythmia, AV kenia blocks or ST-T changes to suspect underlying ACS, my independent interpretation) and Plain X-Ray (X-rays of the shoulder, ribs, pelvis and hip are without acute injuries, some arthritic changes) Radiology Impression Discussion of test interpretation with radiology: I have reviewed the radiologist's reading. (IMPRESSION: No acute rib fractures) Discharge Plan Discharge Clinical Impression: Unwitnessed fall, Contusion of left shoulder, Chest wall contusion Additional Instructions: Evaluated after a fall, had an ECG that was unremarkable, x-rays of the shoulder, ribs, pelvis and hips There were no fractures noted, bruising over the left shoulder blade area is noted Can use Tylenol 975 mg every 6 hours needed for pain Prescriptions: No Action atorvastatin 40 mg tablet 40 mg PO BEDTIME aspirin 81 mg tablet,delayed release (DR/EC) 81 mg PO DAILY levothyroxine 50 mcg tablet 50 mcg PO DAILY@0600 lisinopril 10 mg tablet 15 mg PO DAILY hydrochlorothiazide 12.5 mg tablet 12.5 mg PO DAILY ascorbic acid (vitamin C) [Vitamin C] 250 mg Tablet 250 mg PO DAILY sertraline 50 mg tablet 75 mg PO DAILY cholecalciferol (vitamin D3) [Vitamin D3] 50 mcg (2,000 unit) Capsule 50 mcg PO DAILY sennosides [senna] 8.6 mg Tablet 8.6 mg PO BID PRN (Reason: Constipation) magnesium hydroxide [Milk of Magnesia] 400 mg/5 mL Suspension 30 ml PO DAILY PRN (Reason: Constipation) Xarelto 20 mg tablet 20 mg PO DAILY@0730 Rx Instructions: Before breakfast. melatonin 3 mg Tablet 6 mg PO BEDTIME trazodone 50 mg Tablet 12.5 mg PO DAILY@1600 quetiapine 50 mg tablet 50 mg PO TID@0700,1200,1600 Desitin Daily Defense 13 % Cream 1 appl TOPICAL BID ferrous gluconate 324 mg (38 mg iron) Tablet 324 mg PO DAILY cephalexin 250 mg tablet 250 mg PO MOWEFR loperamide 2 mg Tablet 2 mg PO Q6H MDD 8mh PRN (Reason: Loose Stool) cholecalciferol (vitamin D3) 1,250 mcg (50,000 unit) Tablet 1,250 mcg PO QMONTH Lactobacillus acidophilus 500 million cell Capsule 500 mmu cells PO DAILY omeprazole 20 mg capsule,delayed release(DR/EC) 20 mg PO BID@0630,1630 sulfamethoxazole-trimethoprim [Bactrim DS] 800-160 mg tablet 1 tab PO BID Qty: 10 0RF Print Language: Tristanian
--- NOTE | 2025-02-16 02:17 | ECG_ITS ---
Test Reason : dizziness Blood Pressure : */* mmHG Vent. Rate : 81 BPM Atrial Rate : 81 BPM P-R Int : 154 ms QRS Dur : 76 ms QT Int : 384 ms P-R-T Axes : * -11 4 degrees QTcB Int : 446 ms Sinus rhythm with occasional Premature ventricular complexes Nonspecific ST and T wave abnormality Abnormal ECG When compared with ECG of 08-Feb-2025 18:40, Premature ventricular complexes are now Present Referred By: Berto Germain Electronically Signed By: Sloan Smith
--- NOTE | 2025-02-16 02:32 | PC.NURSE ---
pt globe changer to hospital attire, provider into assess pt, pt taken to x-ray.
--- NOTE | 2025-02-16 03:04 | PC.NURSE ---
pt medicated after coming from x-ray
[2025-02-16 03:33] VITALS: BP 145/60; PULSE 79; RESP 16; TEMP 36.7; O2SAT 95
--- NOTE | 2025-02-16 04:04 | PC.NURSE ---
belong returned, report given to EMS and facility
[2025-02-16 04:05] VITALS: BP 145/60; PULSE 79; RESP 16; TEMP 36.7; O2SAT 95
--- OUTSIDE RECORDS SUMMARY | 2025-04-14 20:00 | XMS_ITS | Clinical Summary ---
Author Organization Unknown Care Team Providers Care [employer] Teacher Name Role Phone RAFA BUCK, MAY Unavailable Unavailable INA RN, HELEN Unavailable Unavailable Payers Payer Name Policy Type Policy Number Effective Date Expira tion Date [place]IC[place] - [place] [id number] Problems Condition Name Condition Details Condition Category Status Onset Date Resolution Date Last Treatment Date Treating Clinician Comments URINARY TRACT INFECTION, SITE NOT SPECIFIED Active 2024-05 0-09 00:00: 00 Allergies, Adverse Reactions, Alerts Allergy [...] MAINTAIN SITUATIONAL AWARENESS AND WILL NOTIFY CLINICAL RESOLUTION EXPERT AND PHYSICIAN/PROVIDER WITH ANY CHANGE IN CONDITION. [code = SKILLED NURSE TO PERFORM ENVIRONMENTAL SAFETY RISK ASSESSMENT AND FALL RISK ASSESSMENT AND PROVIDE INSTRUCTION TO IMPLEMENT ENVIRONMENTAL SAFETY AND FALL PREVENTION STRATEGIES THROUGHOUT THE CERTIFICATION PERIOD. SKILLED NURSE WILL MAINTAIN SITUATIONAL AWARENESS AND WILL NOTIFY CLINICAL RESOLUTION EXPERT AND PHYSICIAN/PROVIDER WITH ANY CHANGE IN CONDITION.] [...] CARE WILL BE ESTABLISHED THAT MEETS PATIENT'S JAIL NEEDS AND INCLUDES PATIENT GOAL FOR HOME [...] End Date/Time Encounter Type Admission Type Attending [facility] Facility Care Department Encounter ID Discharge Date Discharge Status Discharge Condition Discharge Reason Percent Goals Met 2025-02-15 00:00:00 2025-04-15 00:00:00 Outpatient READMICASTRO Lugo [facility] [id number] 80.00
== END 2025-02-16 04:06 | disposition home or self-care (01) ==
PROVIDERS: Emergency Provider Emergency Medicine; PCP Internal Medicine
DX: S40.012A Contusion of left shoulder, initial encounter (principal); S20.219A Contusion of unspecified front wall of thorax, initial encounter; F03.90 Unspecified dementia, unspecified severity, without behavioral disturbance, psychotic disturbance, mood disturbance, and anxiety; R07.89 Other chest pain; R42 Dizziness and giddiness; M25.512 Pain in left shoulder; W18.39XA Other fall on same level, initial encounter; Y93.89 Activity, other specified; Y92.098 Other place in other non-institutional residence as the place of occurrence of the external cause; Y99.8 Other external cause status; Z86.718 Personal history of other venous thrombosis and embolism; Z79.01 Long term (current) use of anticoagulants; Z87.440 Personal history of urinary (tract) infections; Z79.899 Other long term (current) drug therapy; Z87.891 Personal history of nicotine dependence
CPT/HCPCS: 71101; 73030; 73502; 93005; 99285

== ENCOUNTER → 2025-02-16 02:15 | Outpatient (BNV) | payer MEDICARE, OTHER, SELFPAY | PROVIDERS: Emergency Provider Emergency Medicine; PCP Internal Medicine; Visit Provider Radiology Diagnostic Radiology | DX: M25.512 Pain in left shoulder (principal); R07.2 Precordial pain; M25.551 Pain in right hip; M79.604 Pain in right leg; M79.605 Pain in left leg; R51.9 Headache, unspecified | CPT/HCPCS: 71101; 73030; 73502 ==

== ENCOUNTER → 2025-02-16 02:17 | Outpatient (BNV) | payer MEDICARE, OTHER, SELFPAY | PROVIDERS: Emergency Provider Emergency Medicine; PCP Internal Medicine; Visit Provider Internal Medicine Cardiovascular Disease | DX: R94.31 Abnormal electrocardiogram [ECG] [EKG] (principal); R07.89 Other chest pain | CPT/HCPCS: 93010 ==

== ENCOUNTER 2025-02-16 16:34 | Emergency (ER) | payer MEDICARE, OTHER, SELFPAY ==
--- OUTSIDE RECORDS SUMMARY | 2023-09-08 07:00 | XMS_ITS ---
Author Organization [facility] Address [address] [place] [address] Care Team Providers Care Hydrogen Power Plant Engineer Name Role Phone Renan Molina MD, Elizabeth Primary Care Provider U chachaailelayne Silva, Starr Unavailable [phone] Encounters Encounter Location Date Provider Diagnosis [address] [place] [address] 09/08/2023 Starr Silva Plan Of Treatment No Information Progress Notes * HOWARDLashaunDOB:1935 (89 yo F)Acc No.[id number]:09/08/2023 Progress Note Patient: Lashaun WATKINS Provider: Tc Silva DPM :1935 A ge:87 Y S ex:Female Date:09/08/2023 Address:[address], [place], [place] Pcp:Elizabeth Molina MD Subjective: * Chief Complaints: * * Medical History: Objective: * Vitals: Assessment: Plan: * Treatment: * Images: * The named appointment provid er may or may not be the originator of this progress note, and it is not deemed complete until electronically signed by the appointment provider. Sign off status: Pending * Provider: Tc Silva DPM Date: 0 09/08/2023 Generated for Printi ng/Faxing/eTransmitting on: 1 11:00 AM EDT
--- OUTSIDE RECORDS SUMMARY | 2023-09-08 07:00 | XMS_ITS ---
Author Organization [facility] Address [address] [facility] [place] [address] Care Team Providers Care Supervisor Mechanic Boilermaking Name Role Phone Renan Molina MD, Elizabeth Primary Care Provider U chachaailelayne Silva, Starr Unavailable [phone] Encounters Encounter Location Date Provider Diagnosis [address] [place] [address] 09/08/2023 Starr Silva Plan Of Treatment No Information Progress Notes * Lashaun HOWARDDOB:1935 (89 yo F)Acc No.[id number]:09/08/2023 Progress Note Patient: Lashaun WATKINS Provider: Tc Silva DPM :1935 A ge:87 Y S ex:Female Date:09/08/2023 Address:[address], [place], [place] Pcp:Elizabeth Molina MD Subjective: * Chief [...] 09/08/2023 Generated for Printi ng/Faxing/eTransmitting on: 1 07:48 PM EDT
--- OUTSIDE RECORDS SUMMARY | 2023-09-11 06:00 | XMS_ITS ---
Author Organization [facility] Address [address] [place] [address] Care Team Providers Care Berry Grower Name Role Phone Renan Molina MD, Elizabeth Primary Care Provider U chachaailelayne Silva, Starr Butts [phone] REASON FOR VISIT error Encounters Encounter Location Date Provider Diagnosis [address] [place] [address] 09/11/2023 Starr Silva Plan Of Treatment No Information Progress Notes * Lashaun HOWARDDOB:1935 (89 yo F)Acc No.[id number]:09/11/2023 Progress Note Patient: Lashaun WATKINS Provider: Tc Silva DPM :1935 A ge:87 Y S ex:Female Date:09/11/2023 Address:[address], [place], [place] Pcp:Elizabeth Molina MD Subjective: * Chief Complaints: * 1 . Error. * Medical History: Objective: * Vitals: Assessment: Plan: * Treatment: * Images: * The named appointment provid er may or may not be the originator of this progress note, and it is not deemed complete until electronically signed by the appointment provider. Sign off status: Pending * Provider: Tc Silva DPM Date: 0 09/11/2023 Generated for Jimmie kaplan/Edmond/eTransmitting on: 1 07:48 PM EDT
--- OUTSIDE RECORDS SUMMARY | 2023-09-11 06:00 | XMS_ITS ---
Author Organization [facility] Address [address] [facility] [place] [address] Care Team Providers Care Welfare Administrator Name Role Phone Renan Molina MD, Elizabeth Primary Care Provider U chachaailelayne Silva, Starr Butts [phone] REASON FOR VISIT error Encounters Encounter Location Date Provider Diagnosis [address] [place] [address] 09/11/2023 Starr Silva Plan Of Treatment No Information Progress Notes * Lashaun HOWARDDOB:1935 (89 yo F)Acc No.[id number]:09/11/2023 Progress Note Patient: Lashaun WATKINS Provider: Tc Silva DPM :1935 A ge:87 Y S ex:Female Date:09/11/2023 Address:[address], [place], [place] Pcp:Elizabeth Molina MD Subjective: * Chief [...] 09/11/2023 Generated for Jimmie kaplan/Edmond/eTransmitting on: 1 11:01 AM EDT
--- OUTSIDE RECORDS SUMMARY | 2023-09-16 10:30 | XMS_ITS ---
Author Organization [facility] Address [address] [place] [address] Care Team Providers Care Rehabilitation Counselor Name Role Phone Renan Molina MD, Elizabeth Primary Care Provider U chachaailelayne Silva, Starr Unavailable [phone] Encounters Encounter Location Date Provider Diagnosis [address] [place] [address] 2023 Starr Silva Plan Of Treatment No Information Progress Notes * Lashaun HOWARDDOB:1935 (89 yo F)Acc No.[id number]:2023 Progress Note Patient: Lashaun WATKINS Provider: Tc Silva DPM :1935 A ge:87 Y S ex:Female Date:2023 Address:[address], [place], [place] Pcp:Elizabeth Molina MD Subjective: * Chief Complaints: * * Medical History: Objective: * Vitals: Assessment: Plan: * Treatment: * Images: * The named appointment provid er may or may not be the originator of this progress note, and it is not deemed complete until electronically signed by the appointment provider. Sign off status: Pending * Provider: Tc Silva DPM Date: 0 2023 Generated for Printi ng/Faxing/eTransmitting on: 1 11:01 AM EDT
--- OUTSIDE RECORDS SUMMARY | 2023-09-16 10:30 | XMS_ITS ---
Author Organization [facility] Address [address] [place] [address] Care Team Providers Care Transit Worker Name Role Phone Renan Molina MD, Elizabeth Primary Care Provider U chachaailelayne Silva, Starr Unavailable [phone] Encounters Encounter Location Date Provider Diagnosis [address] [place] [address] 2023 Starr Silva Plan Of Treatment No Information Progress Notes * Lashaun HOWARDDOB:1935 (89 yo F)Acc No.[id number]:2023 Progress Note Patient: Lashaun WATKINS Provider: Tc Silva DPM :1935 A ge:87 Y S ex:Female Date:2023 Address:[address], [place] Pcp:Elizabeth Molina MD Subjective: * Chief [...] 2023 Generated for Printi ng/Faxing/eTransmitting on: 1 07:48 PM EDT
--- OUTSIDE RECORDS SUMMARY | 2024-11-15 12:00 | XMS_ITS ---
Author Organization [facility] Address [address] [place] [address] Care Team Providers Care Customer Experience Retail Clerk Name Role Phone Renan Molina MD, Elizabeth Primary Care Provider U chachaailelayne Silva, Starr Unavailable [phone] Encounters Encounter Location Date Provider Diagnosis [address] [place] [address] 11/15/2024 Starr Silva Plan Of Treatment No Information Progress Notes * HOWARDLashaunDOB:1935 (89 yo F)Acc No.[id number]:11/15/2024 Progress Note Patient: Lashaun WATKINS Provider: Tc Silva DPM :1935 A ge:89 Y S ex:Female Date:11/15/2024 Address:[address], [place], [place]-[address] Pcp:Elizabeth Molina MD Subjective: * Chief [...] DPM Date: 0 11/15/2024 Generated for Printi ng/Faxing/eTransmitting on: 1 07:47 PM EDT
--- OUTSIDE RECORDS SUMMARY | 2024-11-15 12:00 | XMS_ITS ---
Author Organization [facility] Address [address] [place] [address] Care Team Providers Care Web Merchant Name Role Phone Renan Molina MD, Elizabeth Primary Care Provider U chachaailelayne Silva, Starr Unavailable [phone] Encounters Encounter Location Date Provider Diagnosis [address] [place] [address] 11/15/2024 Starrpastor Silva Plan Of Treatment No Information Progress Notes * HOWARDLashaunDOB:1935 (89 yo F)Acc No.[id number]:11/15/2024 Progress Note Patient: Lashaun WATKINS Provider: Tc Silva DPM :1935 A ge:89 Y S ex:Female Date:11/15/2024 Address:[address], [place], [place]-[address] Pcp:Elizabeth Molina MD Subjective: * Chief [...] 11/15/2024 Generated for Printi ng/Faxing/eTransmitting on: 1 11:00 AM EDT
--- NOTE | ~2025-02-16 | CT_ITS ---
CLINICAL HISTORY: fall with headstrike CT head without contrast Comparison: CT/SR - CT HEAD/BRAIN WO IV CON - 02/08/25 20:09 EDT Findings: No intra-axial mass, midline shift, hydrocephalus, or acute hemorrhage. Heterogeneous low attenuation in the periventricular white matter. Mild cerebral atrophy. The visualized paranasal sinuses and mastoid air cells are normal. The orbits are unremarkable. There is no acute fracture. IMPRESSION: 1. Chronic periventricular microvascular ischemic disease. 2. Mild cerebral atrophy. 3. No acute intracranial findings. This document has been electronically signed by: Graham Kidd MD on 02/16/2025 18:22:23
--- NOTE | ~2025-02-16 | US_ITS ---
CLINICAL HISTORY: pain and swelling of B L legs Venous duplex ultrasound bilateral lower extremity Comparison: None provided Findings: The visualized deep veins are fully compressible with normal Doppler color flow and spectral tracings. No popliteal cyst. IMPRESSION: 1. Negative for bilateral lower extremity deep vein thrombosis. This document has been electronically signed by: Graham Kidd MD on 02/16/2025 18:23:15
--- NOTE | ~2025-02-16 | CT_ITS ---
CLINICAL HISTORY: +collar, fall with HS CT cervical spine without contrast Comparison: CT/SR - CT CERVICAL SPINE WO IV CON - 02/08/25 20:09 EDT Findings: C5-6: Grade 1 anterolisthesis C5 over C6. No significant degenerative change. Mild osteopenia. Visualized intracranial contents are unremarkable. No cervical fluid collections or masses. No consolidation or effusion at the lung apices. C1-2: Moderate anterior osteoarthrosis with ijis-wi-hztipxly mineralized pannus formation surrounding the odontoid. C3-4: Moderate DJD. C4-5: Moderate DJD. C6-7: Moderate to severe DJD. Dystrophic calcifications in the right thyroid lobe. IMPRESSION: 1. Grade 1 anterolisthesis of C5 over C6. 2. 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 3. 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 4. Mild osteopenia. 5. No acute osseous injury. This document has been electronically signed by: Graham Kidd MD on 02/16/2025 18:20:42
--- NOTE | ~2025-02-16 | XR_ITS ---
CLINICAL HISTORY: fall, R sided pain --- Additional Notes or Special Instructions: COLLARED 1711 -GG 1 view chest x-ray Comparison: CR - XR CHEST 1V - 11/13/24 11:06 EDT Findings: The lungs are clear. Heart size is normal. No acute fracture. IMPRESSION: 1. No acute findings. This document has been electronically signed by: Graham Kidd MD on 02/16/2025 19:06:07
--- NOTE | 2025-02-16 16:41 | ED.FALL ---
HPI - Fall General Chief Complaint: Fall Stated Complaint: fall, +pavithra, +blood thinners Time Seen by Provider: 02/16/25 16:37 Source: patient, EMS, RN notes reviewed and old records reviewed Mode of arrival: EMS Limitations: altered mental status (dementia ) History of Present Illness ED Provider: DWAIN Melo HPI Narrative: 81-year-old female with medical history of dementia with agitation, HTN, hypothyroidism, HLD on xarelto, presents to the ED by EMS after an unwitnessed fall at her assisted living home. Patient with dementia is oriented to self and location, however is a poor historian and does not have much information over her fall today. Patient states she was not experiencing dizziness/lightheadedness before the fall and thinks she may have lost her footing while trying to get into bed. Patient states she does not know if she hit her head or not, was unsure of how long she was on the floor, and is unsure of she experienced LOC. She does report pain above the left ear and of the occipital head. Patient states she has been falling more recently and does not know why. Additionally, her son who is at the bedside states she was supposed to have an US of B/L legs ordered by PCP due to swelling and pain but was unable to get that imaging done today. On chart review, patient was just seen in the department 15 hours ago for fall and discharged back to her assisted living home after negative work up. Related Data Home Medications ?Medication ?Instructions ?Recorded ?Confirmed ascorbic acid (vitamin C) 250 mg 250 mg PO DAILY 11/13/24 02/16/25 tablet (Vitamin C) aspirin 81 mg tablet,delayed 81 mg PO DAILY 11/13/24 02/16/25 release atorvastatin 40 mg tablet 40 mg PO BEDTIME 11/13/24 02/16/25 cholecalciferol (vitamin D3) 50 50 mcg PO DAILY 11/13/24 02/16/25 mcg (2,000 unit) capsule (Vitamin D3) hydrochlorothiazide 12.5 mg tablet 12.5 mg PO DAILY 11/13/24 02/16/25 levothyroxine 50 mcg tablet 50 mcg PO DAILY@0600 11/13/24 02/16/25 lisinopril 10 mg tablet 15 mg PO DAILY 11/13/24 02/16/25 sertraline 50 mg tablet 75 mg PO DAILY 11/13/24 02/16/25 magnesium hydroxide 400 mg/5 mL 30 ml PO DAILY PRN Constipation 11/14/24 02/16/25 oral suspension (Milk of Magnesia) melatonin 3 mg tablet 6 mg PO BEDTIME 11/14/24 02/16/25 rivaroxaban 20 mg tablet (Xarelto) 20 mg PO DAILY@0730 11/14/24 02/16/25 sennosides 8.6 mg tablet (senna) 8.6 mg PO BID PRN Constipation 11/14/24 02/16/25 ferrous gluconate 324 mg (38 mg 324 mg PO DAILY 12/13/24 02/16/25 iron) tablet quetiapine 50 mg tablet 50 mg PO TID@0700,1200,1600 12/13/24 02/16/25 trazodone 50 mg tablet 12.5 mg PO DAILY@1600 12/13/24 02/16/25 zinc oxide 13 % topical cream 1 appl topical BID 12/13/24 02/16/25 (Desitin Daily Defense) Lactobacillus acidophilus 500 500 mmu cells PO DAILY 02/09/25 02/16/25 million cell capsule cephalexin 250 mg tablet 250 mg PO MOWEFR@0900 02/09/25 02/16/25 cholecalciferol (vitamin D3) 1,250 1,250 mcg PO QMONTH 02/09/25 02/16/25 mcg (50,000 unit) tablet loperamide 2 mg tablet 2 mg PO Q6H PRN Loose Stool 02/09/25 02/16/25 omeprazole 20 mg capsule,delayed 20 mg PO BID@0630,1630 02/09/25 02/16/25 release Previous Rx's ?Medication ?Instructions ?Recorded sulfamethoxazole 800 1 tab PO BID #10 tabs 02/13/25 mg-trimethoprim 160 mg tablet (Bactrim DS) Allergies Allergy/AdvReac Type Severity Reaction Status Date / Time No Known Allergies Allergy Verified 02/16/25 16:56 Review of Systems Review of Systems: CONST: Negative for fever, body aches and chills. HENT: Negative for neck pain/stiffness, headache, congestion, sore throat, swelling. POS occipital pain, neck pain, head pain above L ear EYES: Negative for discharge/pain or vision changes. RESP: Negative for cough/hemoptysis and shortness of breath. CV: Negative chest pain, difficulty breathing, palpitations. POS R sided rib pain ABD: Negative pain, nausea, vomiting. : Negative increase frequency, dysuria, blood in urine or stool. MUSC: Negative for muscle aches, edema. SKIN: Negative rash, lesions/sores. NEURO: Negative headache, dizziness, weakness. Yes all other systems are reviewed and are negative [facility] Past Medical History Medical History (Updated 02/17/25 @ 00:00 by Artis Alexander) Dementia with agitation Aggressive behavior Hiatal hernia History of DVT (deep vein thrombosis) HTN (hypertension) Hypothyroid Recurrent UTI HLD (hyperlipidemia) Dementia Surgical History History of ankle surgery H/O colonoscopy Social History Social History Household Members: Unknown / Unable to assess Housing: Unknown / Unable to assess Housing Other:: [place] [facility] Are you a primary ambulatory care to a significant other at home: No Do you presently have visiting nurse or other home services: Yes Alcohol intake: former Patient Tobacco Use Status: Former Tobacco user Tobacco use type: Cigarette Smoked in Last 30 Days: No e-Cigarette/Vaping Use: Former Use Use of substances other than those prescribed or required for medical reasons: No Advance Directives: Yes Advance Directives on File: Yes Advance Directives Date on File: 04/19/24 Do you have a plan to hurt others: No Plan service: No Physical Exam Vital Signs: Vital Signs: Last Vital Signs Temp 98.1 F 02/17/25 00:49 Pulse 74 02/17/25 00:49 Resp 12 02/17/25 00:49 BP 158/67 H 02/17/25 00:49 Pulse Ox 95 02/17/25 00:49 O2 Del Method Room Air 02/17/25 00:49 BMI result Body Mass Index 32.7 GENERAL APPEARANCE: ?AxO to self and location, non toxic appearing, no acute distress. HEENT: ?NC, AT. MMM. EOMI, clear conjunctiva, oropharynx clear. No hematoma or lacerations seen, or palpated, no tenderness to the L ear, patient with glasses on and collar, once I took her glasses off she no longer had pain behind the ear, collar pressing spiritism tips into skin NECK: ?Supple without lymphadenopathy.? No stiffness or restricted ROM. HEART:? Normal rate and regular rhythm, normal S1/S2, no m/r/g LUNGS:? CTAB, moving air well. No crackles or wheezes are heard. ABDOMEN: ?Soft, nontender, nondistended with good bowel sounds heard. BACK: No CVAT, no obvious deformity. EXTREMITIES: ?Without cyanosis, clubbing or edema. 1+ pitting edema over B/L LE, TTP of B/L calf with pitting edema of posterior calf, no unilateral edema, warmth, or erythema noted, homans sign negative. NEUROLOGICAL: ?Grossly nonfocal. Alert and oriented, moving all 4 extremities. Skin: ?Warm and dry without any rash. Medications Administered Generic Name Dose Route Start Last Admin Trade Name Freq PRN Reason Stop Dose Admin Atorvastatin Calcium 40 mg 02/16/25 21:00 02/16/25 23:16 Atorvastatin Calcium 40 Mg Tablet PO 40 mg BEDTIME NESS Administration Melatonin 6 mg 02/16/25 21:00 02/16/25 23:16 Melatonin 3 Mg Tablet PO 6 mg BEDTIME NESS Administration Quetiapine Fumarate 50 mg 02/16/25 21:00 02/16/25 21:45 Quetiapine Fumarate 50 Mg Tablet PO Not Given TID@0700,1200,1600 NESS Discontinued Medications Generic Name Dose Route Start Last Admin Trade Name Freq PRN Reason Stop Dose Admin Amlodipine Besylate 5 mg 02/16/25 23:23 02/17/25 00:50 Amlodipine Besylate 5 Mg Tablet PO 02/16/25 23:24 5 mg ONCE STA Administration Protocol Lactated Ringer's 1,000 mls @ 999 mls/hr 02/16/25 18:49 02/16/25 21:41 Lr IV 02/16/25 19:49 Infused .Q1H1M ONE Infusion Quetiapine Fumarate 50 mg 02/16/25 19:03 02/16/25 20:27 Quetiapine Fumarate 50 Mg Tablet PO 02/16/25 19:04 50 mg ONCE ONE Administration Sodium Zirconium Cyclosilicate 10 gm 02/16/25 18:42 02/16/25 20:27 Sodium Zirconium Cyclosilicate 10 Gm Powd.Pack PO 02/16/25 18:43 10 gm ONCE ONE Administration Trazodone HCl 12.5 mg 02/16/25 19:03 02/16/25 20:29 Trazodone Hcl 25 Mg Halftab PO 02/16/25 19:04 12.5 mg ONCE ONE Administration Medical Decision Making Medical Decision Making [facility] Narrative: 81-year-old female with medical history of dementia with agitation, HTN, hypothyroidism, HLD on xarelto, presents to the ED by EMS after an unwitnessed fall at her assisted living home. Patient poor historian due to dementia. Patient unable to recall details of fall. Endorsing L sided head pain above ear, occipital head and neck pain. Denies lightheadedness or dizziness before fall, no nausea or vomiting after. Patient does not know if she experienced LOC or how long she was down on the ground for. On chart review this is the 3rd visit in 8 days. Patient was seen approximately 15 hours ago in the department for fall and was discharged with negative work up. Son is at bedside and states she is in the process of getting PT and VNA services, patient was evaluated yesterday morning and they are waiting to hear back for official schedule of care. Patient was supposed to have US of B/L LE due to swelling and pain ordered by PCP but was unable to get imaging done today. Plan: Labs, UA, CT head/brain, CT C-spine, XR chest, US B/L LE EKG reveals normal sinus rhythm without ST-elevation/depression, T-wave abnormality Labs without leukocytosis/leukopenia, normocytic anemia with a hemoglobin of 9.9, hematocrit of 32, troponin WNL at 4.9, CPK WNL at 65, hyperkalemia of 5.3, with a creatinine of 2.14, and a BUN of 55. CT head/brain, CT C-spine without acute findings US venous doppler negative for DVT Patient with hyperkalemia of 5.3, BUN of 55 and creatinine of 2.14 (baseline of creatinine around 1.1) lab values consistent with GISSELL. Patient medicated with 1L IV fluids, 10g po Lokelma. Plan for admission for GISSELL. I spoke with Hospitalist Dr. Jim Kearney who will admit to medicine for admisison of GISSELL. After IV fluids, creatinine has improved 4 points from 2.14 to 1.84, BUN 54, potassium is 5.1. I spoke with the hospitalist Dr. Jim Keanrey and I reviewed redraw and patient is appropriate to discharge back to facility. Dr. Jim Kearney recommends holding lisinopril, hydrochlorothiazide, bactrim, and starting on 5 mg of amlodipine, with encouragement for oral hydration. She also recommends holding Xarelto until the GFR >30. Patient will be discharged with 2 weeks of amlodipine. Patient is encouraged to follow up with PCP. Patient is in agreement with the plan. [facility] but there is no staff on to discuss medication changes with. Patient will remain in the department as phys obs and discharged home in the morning. Differential Diagnosis Differential Diagnoses: The differential diagnosis associated with the presentation includes ICH Dysrhythmia Cervical fracture Rib fracture UTI DVT Electrolyte abnormality Rhabdomyolysis Admission/Observation Consideration of admission/observation: Escalation of care including admission/observation considered Consult Healthcare Provider Management of the patient was discussed with: Hospitalist (Dr. Jim Kearney) Lab Data MDM Lab Attestation statement: I reviewed the patient's lab results. 02/16/25 17:07 02/16/25 21:25 Labs: Lab Results 02/16/25 Range/Units 17:07 WBC 5.8 (4.8-10.8) X10*3/uL RBC 3.50 L (4.20-5.50) X10*6/uL Hgb 9.9 L (12.0-16.0) g/dl Hct 32.0 L (37.0-47.0) % MCV 91.4 (80.0-98.0) fL MCH 28.3 (27.0-33.0) pg MCHC 30.9 L (31.0-35.0) g/dl RDW 14.3 (11.0-16.0) % Plt Count 204 (160-400) X10*3/uL MPV 10.6 (9.4-12.3) fL Immature Gran % (Auto) 0.5 H (0.0-0.4) % Neut % (Auto) 64.4 (45-73) % Lymph % (Auto) 21.5 (20-40) % [place] % (Auto) 8.1 (2-11) % Eos % (Auto) 4.5 H (0-4) % Baso % (Auto) 1.0 (0-2) % Lymph # (Auto) 1.3 (1.2-4.9) X10*3/uL [place] # (Auto) 0.5 (0.1-1.2) X10*3/uL Eos # (Auto) 0.3 (0.0-0.4) X10*3/uL Baso # (Auto) 0.1 (0.0-0.2) X10*3/uL Abs Immat Gran (auto) 0.03 (0.00-0.03) X10*3/uL Absolute Neuts (auto) 3.7 (2.0-8.3) x10*3/uL Absolute Nucleated RBC 0.000 (0.0-0.012) X10*3/uL Nucleated RBC % (auto) 0.0 (0.0-0.2) /100WBC Sodium 143 (135-145) mmol/L Potassium 5.3 H D (3.3-5.1) mmol/L Chloride 110 H (96-108) mmol/L Carbon Dioxide 25 (22-29) mmol/L Anion Gap 13 (12-20) BUN 55 H (9-16) mg/dL Creatinine 2.14 H (0.5-1.4) mg/dL Estim Creat Clear Calc 16.5 Estimated GFR 22 Random Glucose 100 (60-115) mg/dL Calcium 9.8 D (8.4-10.2) mg/dL Magnesium 2.0 (1.6-2.6) mg/dL Total Bilirubin 0.4 (0.0-1.0) mg/dL AST 21 (5-31) U/L ALT 15 (0-31) U/L Alkaline Phosphatase 92 (39-117) U/L Total Creatine Kinase 65 (26-140) U/L Troponin I High Sens 4.9 (<3.5-17.0) ng/L Total Protein 6.6 (6.5-8.0) g/dL Albumin 3.7 (3.5-5.0) g/dL Independent Interpretation I performed an independent interpretation of an: EKG, Plain X-Ray and CT Scan Interpretation: I personally interpreted the EKG which revealed normal sinus rhythm, no significant ST-elevation/depression, T-wave abnormality, lengthened QT Vent. Rate : 75 BPM Atrial Rate : 75 BPM P-R Int : 154 ms QRS Dur : 76 ms QT Int : 382 ms P-R-T Axes : 32 1 -1 degrees QTcB Int : 426 ms Normal sinus rhythm Cannot rule out Inferior infarct , age undetermined Abnormal ECG When compared with ECG of 16-Feb-2025 02:42, Premature ventricular complexes are no longer Present I personally interpreted the CT head brain which was negative for acute findings, I agree with the radiologist's interpretation I personally interpreted the CT cervical spine which revealed degenerative changes, was negative for acute findings, I agree with the radiologist's interpretation I personally interpreted the CXR which was negative for acute findings, I agree with the radiologist's interpretation Radiology Impression Discussion of test interpretation with radiology: I have reviewed the radiologist's reading. Radiologist Impression: CT head brain Findings: No intra-axial mass, midline shift, hydrocephalus, or acute hemorrhage. Heterogeneous low attenuation in the periventricular white matter. Mild cerebral atrophy. The visualized paranasal sinuses and mastoid air cells are normal. The orbits are unremarkable. There is no acute fracture. IMPRESSION: 1. Chronic periventricular microvascular ischemic disease. 2. Mild cerebral atrophy. 3. No acute intracranial findings. This document has been electronically signed by: Graham Kidd MD on 02/16/2025 18:22:23 Dictated By: Graham Kidd MD Signed By: <Electronically signed by Graham Kidd MD in OV> 02/16/25 CT C-spine Findings: C5-6: Grade 1 anterolisthesis C5 over C6. No significant degenerative change. Mild osteopenia. Visualized intracranial contents are unremarkable. No cervical fluid collections or masses. No consolidation or effusion at the lung apices. C1-2: Moderate anterior osteoarthrosis with [id number] mineralized pannus formation surrounding the odontoid. C3-4: Moderate DJD. C4-5: Moderate DJD. C6-7: Moderate to severe DJD. Dystrophic calcifications in the right thyroid lobe. IMPRESSION: 1. Grade 1 anterolisthesis of C5 over C6. 2. 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 3. 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 4. Mild osteopenia. 5. No acute osseous injury. This document has been electronically signed by: Graham Kidd MD on 02/16/2025 18:20:42 Dictated By: Graham Kidd MD Signed By: <Electronically signed by Graham Kidd MD in OV> 02/16/25 1821 CXR Findings: The lungs are clear. Heart size is normal. No acute fracture. IMPRESSION: 1. No acute findings. This document has been electronically signed by: Graham Kidd MD on 02/16/2025 19:06:07 Dictated By: Graham Kidd MD Signed By: <Electronically signed by Graham Kidd MD in OV> 02/16/25 1906 Independent Historian Clinical information obtained from an independent historian. History obtained from or confirmed by: Other (Son at bedside corroborating history) External Record Review External record reviewed: Inpatient record, Outpatient record and Prior outpatient labs Chronic Conditions Patient?s care impacted by: Hypertension and Other (Dementia with agitation, hypothyroidism, HLD on Xarelto) Social Determinants Patient?s care significantly limited by Social Determinants of Health including: Other Social Determinant of Health Discharge Plan Discharge Clinical Impression: GISSELL (acute kidney injury) Patient Disposition: Home, Self-Care
--- NOTE | 2025-02-16 16:48 | ECG_ITS ---
Test Reason : FALL Blood Pressure : */* mmHG Vent. Rate : 75 BPM Atrial Rate : 75 BPM P-R Int : 154 ms QRS Dur : 76 ms QT Int : 382 ms P-R-T Axes : 32 1 -1 degrees QTcB Int : 426 ms Normal sinus rhythm Cannot rule out Inferior infarct , age undetermined Abnormal ECG When compared with ECG of 16-Feb-2025 02:42, Premature ventricular complexes are no longer Present Referred By: Toni Melo Electronically Signed By: Sloan Smith
[2025-02-16 16:53] VITALS: BP 130/56; BP 136/70; PULSE 74; PULSE 75; RESP 16; TEMP 36.7; O2SAT 96; BMI 32.7
[2025-02-16 17:14] LABS: MANUAL DIFF FLAG NO
[2025-02-16 17:15] LABS: Hematocrit 32.0 % (37.0-47.0); Hemoglobin 9.9 g/dl (12.0-16.0); Imm Gran Abs Auto 0.03 X10*3/uL (0.00-0.03); Imm Gran Pct Auto 0.5 % (0.0-0.4); Lymphocytes Absolute Auto 1.3 X10*3/uL (1.2-4.9); Mean Corpuscular HGB Conc 30.9 g/dl (31.0-35.0); Mean Corpuscular Hemoglobin 28.3 pg (27.0-33.0); Mean Corpuscular Volume 91.4 fL (80.0-98.0); NRBC Abs Auto 0.000 X10*3/uL (0.0-0.012); NRBC Pct Auto 0.0 /100WBC (0.0-0.2); Platelet Count 204 X10*3/uL (160-400); Red Blood Count 3.50 X10*6/uL (4.20-5.50); White Blood Count 5.8 X10*3/uL (4.8-10.8)
[2025-02-16 17:48] LABS: Alanine Aminotransferase 15 U/L (0-31); Albumin Level 3.7 g/dL (3.5-5.0); Alkaline Phosphatase 92 U/L (39-117); Anion Gap 13 (12-20); Aspartate Amino Transferase 21 U/L (5-31); Blood Urea Nitrogen 55 mg/dL (9-16); Calcium 9.8 mg/dL (8.4-10.2); Carbon Dioxide 25 mmol/L (22-29); Chloride 110 mmol/L (96-108); Creatinine Clr Calc Pharmacy 16.5; Estimated Glomerular Filt Rate 22; Magnesium 2.0 mg/dL (1.6-2.6); Potassium 5.3 mmol/L (3.3-5.1); Sodium 143 mmol/L (135-145); Total Protein 6.6 g/dL (6.5-8.0); Troponin-I High Sensitivity 4.9 ng/L (<3.5-17.0)
--- NOTE | 2025-02-16 18:50 | PHA.MEDREC ---
Pharmacy Consult ? Medication Reconciliation Pharmacy has completed the medication reconciliation. List from facility
[2025-02-16 19:13] VITALS: BP 169/65; PULSE 78; RESP 22; TEMP 36.5; O2SAT 97
--- OUTSIDE RECORDS SUMMARY | 2025-02-16 19:48 | XMS_ITS | Encounter Summary ---
Author Organization [facility] Address [address] [place] [address] Care Team Providers Care Frame Trimmer Name Role Phone Lauren Garcia MD Primary Care Provider + Encounter Details Date Type Department Care Team (Late st Contact Info) Description 05/23/2024 Lab Requisition [facility] - Main Lab [address] [facility] [place] [address] Lauren Garcia MD [address] [phone] Anemia, unspecified Social History Tobacco Use Types [...] LAB CHEMISTRY METHOD 05/23/2024 2:24 PM EST [facility] Potassium 4.0 3.5 - 5.5 mmol/L LAB CHEMISTRY METHOD 05/23/2024 2:24 PM EST [facility] Chloride 108 96 - 110 mmol/L LAB CHEMISTRY METHOD 05/23/2024 2:24 PM [facility] CO2 25 21 - 32 mmol/L LAB CHEMISTRY METHOD 05/23/2024 2:24 PM [facility] Anion Gap 7 3 - 11 LAB CHEMISTRY METHOD 05/23/2024 2:24 PM [facility] Glucose 79 70 - 100 mg/dL LAB CHEMISTRY METHOD 05/23/2024 2:24 PM [facility] BUN 20 5 - 25 mg/dL LAB CHEMISTRY METHOD 05/23/2024 2:24 PM [facility] Creatinine 0.96 0.50 - 1.10 mg/dL LAB CHEMISTRY METHOD 05/23/2024 2:24 PM [facility] eGFR 57(L) >=60 mL/min/1. 73m2 LAB CHEMISTRY METHOD 05/23/2024 2:24 PM [facility] Comment:Calculation based on the Chronic Kidney Disease Epidemiology Collaboration (CKD-EPI) equation refit without adjustment for race. BUN/Creatinine Ratio 20.8 LAB CHEMISTRY METHOD 05/23/2024 2:24 PM [facility] Calcium 9.6 8.5 - 10.5 mg/dL LAB CHEMISTRY METHOD 05/23/2024 2:24 PM [facility] Blood Venous blood specimen / Unknown Venipuncture / Unknown 05/23/2024 7:02 AM EST 05/23/2024 12:18 PM EST us Lauren Garcia MD LAB BLOOD ORDERABLES Fin al Result [facility] [address] [place] [address], * (ABNORMAL) Complete blood count (05/23/2024 7:02 AM EST) WBC 5.6 4.8 - 10.8 K/[facility] LAB HEMETOLOGY METHOD 05/23/2024 1:39 PM [facility] RBC 3.80 3.80 - 4.80 M/mcL LAB HEMETOLOGY METHOD 05/23/2024 1:39 PM [facility] Hemoglobin 9.8(L) 11.5 - 16.0 g/dL LAB HEMETOLOGY METHOD 05/23/2024 1:39 PM [facility] Hematocrit 33.7(L) 35.0 - 47.0 % LAB HEMETOLOGY METHOD 05/23/2024 1:39 PM [facility] MCV 87.8 79.0 - 98.0 FL LAB HEMETOLOGY METHOD 05/23/2024 1:39 PM [facility] MCH 25.5(L) 27.0 - 32.0 pcg LAB HEMETOLOGY METHOD 05/23/2024 1:39 PM [facility] MCHC 29.1(L) 32.0 - 37.0 g/dL LAB HEMETOLOGY METHOD 05/23/2024 1:39 PM [facility] RDW 14.9 11.0 - 15.0 % LAB HEMETOLOGY METHOD 05/23/2024 1:39 PM [facility] Platelets 158 130 - 400 K/mcL LAB HEMETOLOGY METHOD 05/23/2024 1:39 PM [facility] MPV 11.0 7.0 - 11.0 FL LAB HEMETOLOGY METHOD 05/23/2024 1:39 PM [facility] NRBC 0.0 <1.0 % LAB HEMETOLOGY METHOD 05/23/2024 1:39 PM [facility] NRBC Absolute 0.00 <0.10 K/mcL LAB HEMETOLOGY METHOD 05/23/2024 1:39 PM [facility] Blood Venous blood specimen / Unknown Venipuncture / Unknown 05/23/2024 7:02 AM EST 05/23/2024 12:18 PM EST Lauren Garcia MD LAB BLOOD ORDERABLES Fin al Result 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
--- OUTSIDE RECORDS SUMMARY | 2025-02-16 19:48 | XMS_ITS | Encounter Summary ---
Author Organization [employer] Address [address] [place] [address] Care Team Providers Care It Trainer Name Role Phone Lauren Garcia MD Primary Care Provider + Encounter Details Date Type Department Care Team (Late st Contact Info) Description 06/01/2024 Lab Requisition [facility] - Main Lab [address] [facility] [place] [address] Lauren Garcia MD [address] [facility] 1 [place], [place] [phone] Altered mental status, unspecified; Urinary tract infection, [...] reflex microscopic (05/31/2024 2:00 PM EST) Specific [place] Urine 1.024 1.003 - 1.030 LAB URINALYSIS - AUTOMATED METHOD 06/01/2024 11:26 AM [facility] LAB pH, Urine 5.5 5.0 - 8.0 pH LAB URINALYSIS - AUTOMATED METHOD 06/01/2024 11:26 AM [facility] LAB Leukocytes, Urine Small(A) Negative LAB URINALYSIS - AUTOMATED METHOD 06/01/2024 11:26 AM [facility] LAB Nitrite, Urine Positive(A) Negative LAB URINALYSIS - AUTOMATED METHOD 06/01/2024 11:26 AM [facility] Protein, Urine Trace <=Trace mg/dL LAB URINALYSIS - AUTOMATED METHOD 06/01/2024 11:26 AM [facility] Glucose, Urine Negative Negative mg/dL LAB URINALYSIS - AUTOMATED METHOD 06/01/2024 11:26 AM [facility] Ketones, Urine Trace(A) Negative mg/dL LAB URINALYSIS - AUTOMATED METHOD 06/01/2024 11:26 AM [facility] LAB Urobilinogen , Urine 1.0 0.2 - 1.0 mg/dL LAB URINALYSIS - AUTOMATED METHOD 06/01/2024 11:26 AM [facility] LAB Bilirubin, Urine Negative Negative LAB URINALYSIS - AUTOMATED METHOD 06/01/2024 11:26 AM [facility] Blood, Urine Negative Negative LAB URINALYSIS - AUTOMATED METHOD 06/01/2024 11:26 AM [facility] RBC, Urine 2.0 0 - 4 /HPF LAB URINALYSIS - AUTOMATED METHOD 06/01/2024 11:26 AM [facility] LAB WBC, Urine 8.0(H) 0 - 4 /HPF LAB URINALYSIS - AUTOMATED METHOD 06/01/2024 11:26 AM [facility] LAB Squamous Epithelial, Urine 10 0 - 60 /LPF LAB URINALYSIS - AUTOMATED METHOD 06/01/2024 11:26 AM EST [facility] Crystals, Urine MOD CALCIUM OXALATE /LPF LAB URINALYSIS - AUTOMATED METHOD 06/01/2024 11:26 AM [facility] LAB Bacteria, Urine Many(A) Negative /HPF LAB URINALYSIS - AUTOMATED METHOD 06/01/2024 11:26 AM [facility] Hyaline Casts, Urine 0.0 0 - 3 /LPF LAB URINALYSIS - AUTOMATED METHOD 06/01/2024 11:26 AM [facility] Urine Urine specimen obtained by clean catch procedure / Unknown Non-blood Collection / Unknown 05/31/2024 2:00 PM EST 06/01/2024 11:04 AM EST Lauren Garcia MD LAB URINE ORDERABLES Fin al Result [facility] [address] [place] [address], * (ABNORMAL) Culture urine (05/31/2024 2:00 PM EST) Culture, Urine >100,000 CFU/mL Escherichia coli(A) JULISSA 06/03/2024 9:53 AM [facility] Urine Urine specimen obtained by clean [...] MICROBIOLOGY - GENER AL ORDERABLES Final Result [facility] [address] [place] [address], documented in this encounter Visit Diagnoses Diagnosis Altered mental status, unspecified Urinary tract infection, site not specified documented in this encounter Additional Health Concerns Infection Onset Date Last Indicated Resolved Time 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
--- OUTSIDE RECORDS SUMMARY | 2025-02-16 19:48 | XMS_ITS | Encounter Summary ---
Author Organization [employer] Address [address] [place] [address] Care Team Providers Care Labor Relations Worker Name Role Phone Lauren Garcia MD Primary Care Provider + Encounter Details Date Type Department Care Team (Late st Contact Info) Description 06/06/2024 Lab Requisition [facility] - Main Lab [address] [facility] [place] [address] Lauren Garcia MD [address] [facility] 1 [place], [place] [phone] Vitamin D deficiency, unspecified; Essential (primary) hypertension [...] * (ABNORMAL) Magnesium (06/06/2024 8:50 AM EST) [facility] Magnesium 1.6(L) 1.9 - 2.6 mg/dL LAB CHEMISTRY METHOD 06/06/2024 4:[address] [facility] LAB Blood Venous blood specimen / Unknown Venipuncture / Unknown 06/06/2024 8:50 AM EST 06/06/2024 11:43 AM EST Lauren Garcia MD LAB BLOOD ORDERABLES Fin al Result Performing Organization Address City/[facility]/ZIP Co de Phone Number [facility] [address] [place] [address], * Folate (06/06/2024 8:50 AM EST) [facility] Folate 8.9 2.8 - 17.0 ng/ml LAB CHEMISTRY METHOD 06/06/2024 4:[address] [facility] Blood Venous blood specimen / Unknown Venipuncture / Unknown 06/06/2024 8:50 AM EST 06/06/2024 11:43 AM EST Lauren Garcia MD LAB BLOOD ORDERABLES Fin al Result [facility] [address] [place] [address], * Vitamin B12 (06/06/2024 8:50 AM EST) [facility] Vitamin B-12 678 250 - 900 pcg/mL LAB CHEMISTRY METHOD 06/06/2024 4:[address] [facility] Blood Venous blood specimen / Unknown Venipuncture / Unknown 06/06/2024 8:50 AM EST 06/06/2024 11:43 AM EST Lauren Garcia MD LAB BLOOD ORDERABLES Fin al Result Performing Organization Address [facility]/ZIP Co de Phone Number [facility] [address] [place] [address], [place] [phone] * Vitamin D 25 hydroxy (06/06/2024 8:50 AM EST) Pathologist [facility] Vit D, 25-Hydroxy 36.0 30.0 - 80.0 ng/mL LAB CHEMISTRY METHOD 06/06/2024 4:22 PM [facility] Blood Venous blood specimen / Unknown Venipuncture / Unknown 06/06/2024 8:50 AM EST 06/06/2024 11:43 AM EST Lauren Garcia MD LAB BLOOD ORDERABLES Fin al Result Performing Organization Address [facility] Co de Phone Number [facility] [address] [place] [address], [place] [phone] * (ABNORMAL) Comprehensive metabolic panel (06/06/2024 8:50 AM EST) [facility] Sodium 138 133 - 145 mmol/L LAB CHEMISTRY METHOD 06/06/2024 5:02 PM [facility] Potassium 4.3 3.5 - 5.5 mmol/L LAB CHEMISTRY METHOD 06/06/2024 5:02 PM [facility] Comment:Hemolysis present Chloride 106 96 - 110 mmol/L LAB CHEMISTRY METHOD 06/06/2024 5:02 PM [facility] CO2 20(L) 21 - 32 mmol/L LAB CHEMISTRY METHOD 06/06/2024 5:02 PM [facility] Anion Gap 12(H) 3 - 11 LAB CHEMISTRY METHOD 06/06/2024 5:02 PM [facility] Glucose 104(H) 70 - 100 mg/dL LAB CHEMISTRY METHOD 06/06/2024 5:02 PM [facility] BUN 32(H) 5 - 25 mg/dL LAB CHEMISTRY METHOD 06/06/2024 5:02 PM [facility] Comment:Results verified by repeat testing Creatinine 2.05(H) 0.50 - 1.10 mg/dL LAB CHEMISTRY METHOD 06/06/2024 5:02 PM [facility] Comment:Results verified by repeat testing eGFR 23(L) >=60 mL/min/1. 73m2 LAB CHEMISTRY METHOD 06/06/2024 5:02 PM [facility] Comment:Calculation based on the Chronic Kidney Disease Epidemiology Collaboration (CKD-EPI) equation refit without adjustment for race. BUN/Creatinine Ratio 15.6 LAB CHEMISTRY METHOD 06/06/2024 5:02 PM [facility] Calcium 9.5 8.5 - 10.5 mg/dL LAB CHEMISTRY METHOD 06/06/2024 5:02 PM [facility] AST (SGOT) 29 10 - 42 unit/L LAB CHEMISTRY METHOD 06/06/2024 5:02 PM [facility] Comment:Hemolysis present ALT (SGPT) 19 10 - 60 unit/L LAB CHEMISTRY METHOD 06/06/2024 5:02 PM [facility] Alkaline Phosphatase 96 42 - 121 unit/L LAB CHEMISTRY METHOD 06/06/2024 5:02 PM [facility] Total Protein 6.2 6.0 - 8.0 g/dL LAB CHEMISTRY METHOD 06/06/2024 5:02 PM [facility] Albumin 2.8(L) 3.2 - 5.0 g/dL LAB CHEMISTRY METHOD 06/06/2024 5:02 PM [facility] Total Bilirubin 1.2 0.0 - 1.4 mg/dL LAB CHEMISTRY METHOD 06/06/2024 5:02 PM [facility] Blood Venous blood specimen / Unknown Venipuncture / Unknown 06/06/2024 8:50 AM EST 06/06/2024 11:43 AM EST us Lauren Garcia MD LAB BLOOD ORDERABLES Fin al Result [facility] [address] [place] [address], * (ABNORMAL) Complete blood count (06/06/2024 8:50 AM EST) [facility] WBC 8.2 4.8 - 10.8 K/mcL LAB HEMETOLOGY METHOD 06/06/2024 12:50 PM [facility] RBC 4.40 3.80 - 4.80 M/mcL LAB HEMETOLOGY METHOD 06/06/2024 12:50 PM [facility] Hemoglobin 11.2(L) 11.5 - 16.0 g/dL LAB HEMETOLOGY METHOD 06/06/2024 12:50 PM [facility] Hematocrit 38.7 35.0 - 47.0 % LAB HEMETOLOGY METHOD 06/06/2024 12:50 PM [facility] MCV 89.0 79.0 - 98.0 FL LAB HEMETOLOGY METHOD 06/06/2024 12:50 PM [facility] MCH 25.7(L) 27.0 - 32.0 pcg LAB HEMETOLOGY METHOD 06/06/2024 12:50 PM [facility] MCHC 28.9(L) 32.0 - 37.0 g/dL LAB HEMETOLOGY METHOD 06/06/2024 12:50 PM [facility] RDW 16.6(H) 11.0 - 15.0 % LAB HEMETOLOGY METHOD 06/06/2024 12:50 PM [facility] Platelets 195 130 - 400 K/mcL LAB HEMETOLOGY METHOD 06/06/2024 12:[address] [facility] MPV 12.2(H) 7.0 - 11.0 FL LAB HEMETOLOGY METHOD 06/06/2024 12:[address] [facility] NRBC 0.0 <1.0 % LAB HEMETOLOG METHOD 06/06/2024 12:[address] [facility] NRBC Absolute 0.00 <0.10 K/mcL LAB HEMETOLOGY METHOD 06/06/2024 12:[address] [facility] Blood Venous blood specimen / Unknown Venipuncture / Unknown 06/06/2024 8:50 AM EST 06/06/2024 11:43 AM EST us Lauren Garcia MD LAB BLOOD ORDERABLES Fin al Result [facility] [address] [place] [address], documented in this encounter Visit Diagnoses Diagnosis Vitamin D deficiency, unspecified Essential (primary) hypertension Unspecified essential hypertension documented in this encounter Additional Health Concerns Infection Onset Date Last Indicated Resolved Time VRE 05/08/2024 05/08/2024 documented as of this encounter Care Teams Labor Relations Worker Relationship Specialty Start Date End Date Lauren Garcia MD [address] [place] [phone] PCP - General Family Medicine 04/15/24 documented as of this encounter
--- OUTSIDE RECORDS SUMMARY | 2025-02-16 19:48 | XMS_ITS | Encounter Summary ---
Author Organization [facility] Address [address] [place] [address] Care Team Providers Care Tire Regrooving Machine Operator Name Role Phone Lauren Garcia MD Primary Care Provider + Encounter Details Date Type Department Care Team (Late st Contact Info) Description 06/25/2024 Lab Requisition [facility] - Main Lab [address] [facility] [place] [address] Lauren Garcia MD [address] [phone] Essential (primary) hypertension Social History Tobacco Use [...] LAB CHEMISTRY METHOD 06/27/2024 1:02 PM EST [facility] Potassium 4.0 3.5 - 5.5 mmol/L LAB CHEMISTRY METHOD 06/27/2024 1:02 PM EST [facility] Chloride 110 96 - 110 mmol/L LAB CHEMISTRY METHOD 06/27/2024 1:02 PM [facility] LAB CO2 21 21 - 32 mmol/L LAB CHEMISTRY METHOD 06/27/2024 1:02 PM [facility] Anion Gap 11 3 - 11 LAB CHEMISTRY METHOD 06/27/2024 1:02 PM [facility] Glucose 86 70 - 100 mg/dL LAB CHEMISTRY METHOD 06/27/2024 1:02 PM [facility] BUN 13 5 - 25 mg/dL LAB CHEMISTRY METHOD 06/27/2024 1:02 PM [facility] Creatinine 1.04 0.50 - 1.10 mg/dL LAB CHEMISTRY METHOD 06/27/2024 1:02 PM [facility] LAB eGFR 52(L) >=60 mL/min/1. 73m2 LAB CHEMISTRY METHOD 06/27/2024 1:02 PM [facility] LAB Comment:Calculation based on the Chronic Kidney Disease Epidemiology Collaboration (CKD-EPI) equation refit without adjustment for race. BUN/Creatinine Ratio 12.5 LAB CHEMISTRY METHOD 06/27/2024 1:02 PM [facility] Calcium 9.9 8.5 - 10.5 mg/dL LAB CHEMISTRY METHOD 06/27/2024 1:02 PM [facility] LAB Blood Venous blood specimen / Unknown Venipuncture / Unknown 06/27/2024 7:52 AM EST 06/27/2024 11:50 AM EST us Lauren Garcia MD LAB BLOOD ORDERABLES Fin al Result [facility] [address] [place] [address], * (ABNORMAL) Complete blood count (06/27/2024 7:52 AM EST) WBC 5.2 4.8 - 10.8 K/mcL LAB HEMETOLOGY METHOD 06/27/2024 1:02 PM [facility] RBC 4.30 3.80 - 4.80 M/mcL LAB HEMETOLOGY METHOD 06/27/2024 1:02 PM [facility] Hemoglobin 11.0(L) 11.5 - 16.0 g/dL LAB HEMETOLOGY METHOD 06/27/2024 1:02 PM [facility] Hematocrit 38.7 35.0 - 47.0 % LAB HEMETOLOGY METHOD 06/27/2024 1:02 PM [facility] LAB MCV 90.6 79.0 - 98.0 FL LAB HEMETOLOGY METHOD 06/27/2024 1:02 PM [facility] MCH 25.8(L) 27.0 - 32.0 pcg LAB HEMETOLOGY METHOD 06/27/2024 1:02 PM [facility] MCHC 28.4(L) 32.0 - 37.0 g/dL LAB HEMETOLOGY METHOD 06/27/2024 1:02 PM [facility] RDW 17.4(H) 11.0 - 15.0 % LAB HEMETOLOGY METHOD 06/27/2024 1:02 PM [facility] Platelets 330 130 - 400 K/mcL LAB HEMETOLOGY METHOD 06/27/2024 1:02 PM [facility] MPV 12.0(H) 7.0 - 11.0 FL LAB HEMETOLOGY METHOD 06/27/2024 1:02 PM [facility] NRBC 0.0 <1.0 % LAB HEMETOLOGY METHOD 06/27/2024 1:02 PM [facility] NRBC Absolute 0.00 <0.10 K/mcL LAB HEMETOLOGY METHOD 06/27/2024 1:02 PM [facility] Blood Venous blood specimen / Unknown Venipuncture / Unknown 06/27/2024 7:52 AM EST 06/27/2024 11:50 AM EST us Lauren Garcia MD LAB BLOOD ORDERABLES Fin al Result [facility] ([facility]) [facility] [address] [place] [address], documented in this encounter Visit Diagnoses Diagnosis Essential (primary) hypertension Unspecified essential hypertension documented in this encounter Additional Health Concerns Infection Onset Date Last Indicated Resolved Time VRE 05/08/2024 05/08/2024 documented as of this encounter Care Teams Tire Regrooving Machine Operator Relationship Specialty Start Date End Date Lauren Garcia MD [address] [place] [phone] PCP - General Family Medicine 04/15/24 documented as of this encounter
--- OUTSIDE RECORDS SUMMARY | 2025-02-16 19:48 | XMS_ITS | Encounter Summary ---
Author Organization [employer] Address [address] [place] [address] Care Team Providers Care Scrum Coach Name Role Phone Lauren Garcia MD Primary Care Provider + Encounter Details Date Type Department Care Team (Late st Contact Info) Description 04/15/2024 Lab Requisition [facility] - Main Lab [address] [facility] [place] [address] Lauren Garcia MD [address] [facility] 1 [place], [place] [phone] Vitamin D deficiency, unspecified; Pathological fracture, right [...] LAB CHEMISTRY METHOD 04/15/2024 10:58 AM EST [facility] LAB Blood Venous blood specimen / Unknown Venipuncture / Unknown 04/15/2024 7:06 AM EST 04/15/2024 8:53 AM EST Lauren Garcia MD LAB BLOOD ORDERABLES Fin al Result [facility] LAB [address] [place] [address], * Vitamin B12 (04/15/2024 7:06 AM EST) Vitamin B-12 315 250 - 900 pcg/mL LAB CHEMISTRY METHOD 04/15/2024 11:36 AM EST [facility] LAB Blood Venous blood specimen / Unknown Venipuncture / Unknown 04/15/2024 7:06 AM EST 04/15/2024 8:53 AM EST Lauren Garcia MD LAB BLOOD ORDERABLES Fin al Result Performing Organization Address City/[facility]/ZIP Co de Phone Number [facility] LAB [address] [place] [address], * (ABNORMAL) Magnesium (04/15/2024 7:06 AM EST) Pathologist [facility] Magnesium 1.8(L) 1.9 - 2.6 mg/dL LAB CHEMISTRY METHOD 04/15/2024 10:58 AM EST [facility] LAB Blood Venous blood specimen / Unknown Venipuncture / Unknown 04/15/2024 7:06 AM EST 04/15/2024 8:53 AM EST Lauren Garcia MD LAB BLOOD ORDERABLES Fin al Result Performing Organization Address [facility]/ZIP Co de Phone Number [facility] [address] [place] [address], * Folate (04/15/2024 7:06 AM EST) Pathologist [facility] Folate 12.3 2.8 - 17.0 ng/ml LAB CHEMISTRY METHOD 04/15/2024 11:36 AM EST [facility] Blood Venous blood specimen / Unknown Venipuncture / Unknown 04/15/2024 7:06 AM EST 04/15/2024 8:53 AM EST Lauren Garcia MD LAB BLOOD ORDERABLES Fin al Result Performing Organization Address City/[facility]/ZIP Co de Phone Number [facility] [address] [place] [address], * Thyroid stimulating hormone (04/15/2024 7:06 AM EST) TSH 0.65 0.40 - 4.00 mcIU/mL LAB CHEMISTRY METHOD 04/15/2024 10:58 AM EST [facility] Blood Venous blood specimen / Unknown Venipuncture / Unknown 04/15/2024 7:06 AM EST 04/15/2024 8:53 AM EST us Lauren Garcia MD LAB BLOOD ORDERABLES Fin al Result [facility] [address] [place] [address], * (ABNORMAL) Basic metabolic panel (04/15/2024 7:06 AM EST) Sodium 143 133 - 145 mmol/L LAB CHEMISTRY METHOD 04/15/2024 11:36 AM [facility] Potassium 4.3 3.5 - 5.5 mmol/L LAB CHEMISTRY METHOD 04/15/2024 11:36 AM [facility] Chloride 111(H) 96 - 110 mmol/L LAB CHEMISTRY METHOD 04/15/2024 11:36 AM [facility] CO2 22 21 - 32 mmol/L LAB CHEMISTRY METHOD 04/15/2024 11:36 AM [facility] Anion Gap 10 3 - 11 LAB CHEMISTRY METHOD 04/15/2024 11:36 AM [facility] Glucose 102(H) 70 - 100 mg/dL LAB CHEMISTRY METHOD 04/15/2024 11:36 AM [facility] BUN 35(H) 5 - 25 mg/dL LAB CHEMISTRY METHOD 04/15/2024 11:36 AM [facility] Creatinine 1.10 0.50 - 1.10 mg/dL LAB CHEMISTRY METHOD 04/15/2024 11:36 AM [facility] eGFR 49(L) >=60 mL/min/1. 73m2 LAB CHEMISTRY METHOD 04/15/2024 11:36 AM [facility] Comment:Calculation based on the Chronic Kidney Disease Epidemiology Collaboration (CKD-EPI) equation refit without adjustment for race. BUN/Creatinine Ratio 31.8 LAB CHEMISTRY METHOD 04/15/2024 11:36 AM EST [facility] Calcium 9.9 8.5 - 10.5 mg/dL LAB CHEMISTRY METHOD 04/15/2024 11:36 AM [facility] Blood Venous blood specimen / Unknown Venipuncture / Unknown 04/15/2024 7:06 AM EST 04/15/2024 8:53 AM EST us Lauren Garcia MD LAB BLOOD ORDERABLES Fin al Result [facility] [address] [place] [address], * (ABNORMAL) Complete blood count (04/15/2024 7:06 AM EST) WBC 6.8 4.8 - 10.8 K/mcL LAB HEMETOLOGY METHOD 04/15/2024 10:32 AM [facility] RBC 3.80 3.80 - 4.80 M/[facility] LAB HEMETOLOGY METHOD 04/15/2024 10:32 AM [facility] Hemoglobin 10.0(L) 11.5 - 16.0 g/dL LAB HEMETOLOGY METHOD 04/15/2024 10:32 AM [facility] Hematocrit 32.7(L) 35.0 - 47.0 % LAB HEMETOLOGY METHOD 04/15/2024 10:32 AM [facility] MCV 86.5 79.0 - 98.0 FL LAB HEMETOLOGY METHOD 04/15/2024 10:32 AM [facility] MCH 26.5(L) 27.0 - 32.0 pcg LAB HEMETOLOGY METHOD 04/15/2024 10:32 AM [facility] MCHC 30.6(L) 32.0 - 37.0 g/dL LAB HEMETOLOGY METHOD 04/15/2024 10:32 AM EST [facility] RDW 14.4 11.0 - 15.0 % LAB HEMETOLOGY METHOD 04/15/2024 10:32 AM EST [facility] Platelets 187 130 - 400 K/mcL LAB HEMETOLOGY METHOD 04/15/2024 10:32 AM [facility] MPV 12.2(H) 7.0 - 11.0 FL LAB HEMETOLOGY METHOD 04/15/2024 10:32 AM EST [facility] NRBC 0.0 <1.0 % LAB HEMETOLOGY METHOD 04/15/2024 10:32 AM [facility] NRBC Absolute 0.00 <0.10 K/mcL LAB HEMETOLOGY METHOD 04/15/2024 10:32 AM [facility] Blood Venous blood specimen / Unknown Venipuncture / Unknown 04/15/2024 7:06 AM EST 04/15/2024 8:53 AM EST Lauren Garcia MD LAB BLOOD ORDERABLES Fin al Result [facility] [address] [place] [address], documented in this encounter Visit Diagnoses Diagnosis Vitamin D deficiency, unspecified Pathological fracture, right tibia, initial encounter for fracture Hypothyroidism, unspecified Essential (primary) hypertension Unspecified essential hypertension documented in this encounter Additional Health Concerns Infection Onset Date Last Indicated Resolved Time VRE 05/08/2024 05/08/2024 documented as of this encounter Care Teams Scrum Coach Relationship Specialty Start Date End Date Lauren Garcia MD [address] [place] [phone] PCP - General Family Medicine 04/15/24 documented as of this encounter
--- OUTSIDE RECORDS SUMMARY | 2025-02-16 19:48 | XMS_ITS | Clinical Summary ---
Author Organization [address] Address [address] [place] [phone] Phone Care Team Providers Care Harvesting Contractor Name Role Phone Elder, Lauren Salvador MD [...] Last Indicated VRE 05/08/2024 05/08/2024 Insurance MEDICARE [facility] Care Teams Harvesting Contractor Relationship Specialty Start Date End Date Lauren Garcia MD [address] [phone] PCP - General Family Medicine 04/15/24
--- OUTSIDE RECORDS SUMMARY | 2025-02-16 19:48 | XMS_ITS | Encounter Summary ---
Author Organization [employer] [facility] Address [address] [place] [address] Care Team Providers Care Senior Production Planner Name Role Phone Lauren Garcia MD Primary Care Provider + Encounter Details Date Type Department Care Team (Late st Contact Info) Description 05/13/2024 Lab Requisition [facility] - Main Lab 299 [facility] [address] Lauren Garcia MD [address] [phone] Chronic kidney disease, unspecified; Essential (primary) hypertension [...] LAB CHEMISTRY METHOD 05/16/2024 1:28 PM EST [facility] Potassium 4.1 3.5 - 5.5 mmol/L LAB CHEMISTRY METHOD 05/16/2024 1:28 PM EST [facility] Chloride 109 96 - 110 mmol/L LAB CHEMISTRY METHOD 05/16/2024 1:28 PM EST [facility] CO2 25 21 - 32 mmol/L LAB CHEMISTRY METHOD 05/16/2024 1:28 PM [facility] Anion Gap 8 3 - 11 LAB CHEMISTRY METHOD 05/16/2024 1:28 PM [facility] Glucose 83 70 - 100 mg/dL LAB CHEMISTRY METHOD 05/16/2024 1:28 PM [facility] BUN 24 5 - 25 mg/dL LAB CHEMISTRY METHOD 05/16/2024 1:28 PM [facility] Creatinine 1.17(H) 0.50 - 1.10 mg/dL LAB CHEMISTRY METHOD 05/16/2024 1:28 PM [facility] eGFR 45(L) >=60 mL/min/1. 73m2 LAB CHEMISTRY METHOD 05/16/2024 1:28 PM [facility] Comment:Calculation based on the Chronic Kidney Disease Epidemiology Collaboration (CKD-EPI) equation refit without adjustment for race. BUN/Creatinine Ratio 20.5 LAB CHEMISTRY METHOD 05/16/2024 1:28 PM [facility] Calcium 9.8 8.5 - 10.5 mg/dL LAB CHEMISTRY METHOD 05/16/2024 1:28 PM [facility] Blood Venous blood specimen / Unknown Venipuncture / Unknown 05/16/2024 6:18 AM EST 05/16/2024 10:47 AM EST us Lauren Garcia MD LAB BLOOD ORDERABLES Fin al Result [facility] [address] [place] [address], * (ABNORMAL) Complete blood count (05/16/2024 6:18 AM EST) WBC 6.2 4.8 - 10.8 K/[facility] 05/16/2024 1:43 PM [facility] RBC 4.00 3.80 - 4.80 M/mcL LAB HEMETOLOGY METHOD 05/16/2024 1:43 PM [facility] Hemoglobin 10.0(L) 11.5 - 16.0 g/dL LAB HEMETOLOGY METHOD 05/16/2024 1:43 PM [facility] Hematocrit 34.6(L) 35.0 - 47.0 % LAB HEMETOLOGY METHOD 05/16/2024 1:43 PM [facility] MCV 87.6 79.0 - 98.0 FL LAB HEMETOLOGY METHOD 05/16/2024 1:43 PM [facility] MCH 25.3(L) 27.0 - 32.0 pcg LAB HEMETOLOGY METHOD 05/16/2024 1:43 PM [facility] MCHC 28.9(L) 32.0 - 37.0 g/dL LAB HEMETOLOGY METHOD 05/16/2024 1:43 PM [facility] RDW 14.5 11.0 - 15.0 % LAB HEMETOLOGY METHOD 05/16/2024 1:43 PM [facility] Platelets 212 130 - 400 K/mcL LAB HEMETOLOGY METHOD 05/16/2024 1:43 PM [facility] MPV 12.0(H) 7.0 - 11.0 FL LAB HEMETOLOGY METHOD 05/16/2024 1:43 PM [facility] NRBC 0.0 <1.0 % LAB HEMETOLOGY METHOD 05/16/2024 1:43 PM [facility] NRBC Absolute 0.00 <0.10 K/mcL LAB HEMETOLOGY METHOD 05/16/2024 1:43 PM [facility] Blood Venous blood specimen / Unknown Venipuncture / Unknown 05/16/2024 6:18 AM EST 05/16/2024 10:47 AM EST us Lauren Garcia MD LAB BLOOD ORDERABLES Fin al Result [facility] ([facility]) [facility] LAB [address] [place] [address], documented in this encounter Visit Diagnoses Diagnosis Chronic kidney disease, unspecified Essential (primary) hypertension Unspecified essential hypertension documented in this encounter Additional Health Concerns Infection Onset Date Last Indicated Resolved Time VRE 05/08/2024 05/08/2024 documented as of this encounter Care Teams Senior Production Planner Relationship Specialty Start Date End Date Lauren Garcia MD [address] [address] PCP - General Family Medicine 04/15/24 documented as of this encounter
--- OUTSIDE RECORDS SUMMARY | 2025-02-16 19:48 | XMS_ITS | Encounter Summary ---
Author Organization [facility] Address [address] [place] [address] Care Team Providers Care Straw Hat Machine Operator Name Role Phone Lauren Garcia MD Primary Care Provider + Encounter Details Date Type Department Care Team (Late st Contact Info) Description 06/23/2024 Lab Requisition [facility] - Main Lab 299 [facility] [place] [address] Lauren Garcia MD [address] [phone] Chronic kidney disease, unspecified Social History Tobacco [...] AM EST) WBC 5.1 4.8 - 10.8 K/[facility] LAB HEMETOLOGY METHOD 06/23/2024 11:34 AM EST [facility] RBC 4.10 3.80 - 4.80 M/[facility] LAB HEMETOLOGY METHOD 06/23/2024 11:34 AM EST [facility] Hemoglobin 10.6(L) 11.5 - 16.0 g/dL LAB HEMETOLOGY METHOD 06/23/2024 11:34 AM EST [facility] Hematocrit 36.1 35.0 - 47.0 % LAB HEMETOLOGY METHOD 06/23/2024 11:34 AM [facility] MCV 87.8 79.0 - 98.0 FL LAB HEMETOLOGY METHOD 06/23/2024 11:34 AM [facility] MCH 25.8(L) 27.0 - 32.0 pcg LAB HEMETOLOGY METHOD 06/23/2024 11:34 AM [facility] LAB MCHC 29.4(L) 32.0 - 37.0 g/dL LAB HEMETOLOGY METHOD 06/23/2024 11:34 AM [facility] LAB RDW 16.7(H) 11.0 - 15.0 % LAB HEMETOLOGY METHOD 06/23/2024 11:34 AM [facility] Platelets 267 130 - 400 K/mcL LAB HEMETOLOGY METHOD 06/23/2024 11:34 AM [facility] MPV 12.4(H) 7.0 - 11.0 FL LAB HEMETOLOGY METHOD 06/23/2024 11:34 AM [facility] NRBC 0.0 <1.0 % LAB HEMETOLOGY METHOD 06/23/2024 11:34 AM [facility] NRBC Absolute 0.00 <0.10 K/mcL LAB HEMETOLOGY METHOD 06/23/2024 11:34 AM [facility] Blood Venous blood specimen / Unknown Venipuncture / Unknown 06/23/2024 8:46 AM EST 06/23/2024 10:45 AM EST us Lauren Garcia MD LAB BLOOD ORDERABLES Fin al Result [facility] [address] [place] [address], documented in this encounter Visit Diagnoses Diagnosis Chronic kidney disease, unspecified documented in this encounter Additional Health Concerns Infection Onset Date Last Indicated Resolved Time VRE 05/08/2024 05/08/2024 documented as of this encounter Care Teams Straw Hat Machine Operator Relationship Specialty Start Date End Date Lauren Garcia MD [address] [phone] PCP - General Family Medicine 04/15/24 documented as of this encounter
--- OUTSIDE RECORDS SUMMARY | 2025-02-16 19:48 | XMS_ITS | Encounter Summary ---
Author Organization [employer] [facility] Address [address] [place] [address] Care Team Providers Care Vice Admiral Name Role Phone Lauren Garcia MD Primary Care Provider + Encounter Details Date Type Department Care Team (Late st Contact Info) Description 06/09/2024 Lab Requisition [facility] - Main Lab 299 [facility] [place] [address] Lauren Garcia MD [address] [phone] Altered mental status, unspecified; Vitamin D deficiency, [...] LAB CHEMISTRY METHOD 06/09/2024 11:28 AM EST [facility] Potassium 4.3 3.5 - 5.5 mmol/L LAB CHEMISTRY METHOD 06/09/2024 11:28 AM EST [facility] Chloride [...] al Result [facility] [address] [place] [address], * (ABNORMAL) Complete blood count (06/09/2024 7:19 [...] MD LAB BLOOD ORDERABLES Fin al Result [facility] ([facility]) [facility] [address] [place] [address], documented in this encounter Visit Diagnoses Diagnosis Altered mental status, unspecified Vitamin D deficiency, unspecified documented in this encounter Additional Health Concerns Infection Onset Date Last Indicated Resolved Time VRE 05/08/2024 05/08/2024 documented as of this encounter Care Teams Vice Admiral Relationship Specialty Start Date End Date Lauren Garcia MD [address] [address] PCP - General Family Medicine 04/15/24 documented as of this encounter
--- OUTSIDE RECORDS SUMMARY | 2025-02-16 19:48 | XMS_ITS | Encounter Summary ---
Author Organization [facility] Address [address] [place] [address] Care Team Providers Care Plant Equipment Engineer Name Role Phone Lauren Garcia MD Primary Care Provider + Encounter Details Date Type Department Care Team (Late st Contact Info) Description 06/11/2024 Lab Requisition [facility] - Main Lab 299 [facility] [place] [address] Lauren Garcia MD [address] [phone] Essential (primary) hypertension Social History Tobacco Use [...] LAB CHEMISTRY METHOD 06/13/2024 11:30 AM EST [facility] Potassium 3.9 3.5 - 5.5 mmol/L LAB CHEMISTRY METHOD 06/13/2024 11:30 AM EST [facility] Chloride 104 96 - 110 mmol/L LAB CHEMISTRY METHOD 06/13/2024 11:30 AM [facility] CO2 28 21 - 32 mmol/L LAB CHEMISTRY METHOD 06/13/2024 11:30 AM [facility] LAB Anion Gap 6 3 - 11 LAB CHEMISTRY METHOD 06/13/2024 11:30 AM [facility] LAB Glucose 72 70 - 100 mg/dL LAB CHEMISTRY METHOD 06/13/2024 11:30 AM [facility] BUN 45(H) 5 - 25 mg/dL LAB CHEMISTRY METHOD 06/13/2024 11:30 AM [facility] Creatinine 1.32(H) 0.50 - 1.10 mg/dL LAB CHEMISTRY METHOD 06/13/2024 11:30 AM [facility] LAB eGFR 39(L) >=60 mL/min/1. 73m2 LAB CHEMISTRY METHOD 06/13/2024 11:30 AM [facility] LAB Comment:Calculation based on the Chronic Kidney Disease Epidemiology Collaboration (CKD-EPI) equation refit without adjustment for race. BUN/Creatinine Ratio 34.1 LAB CHEMISTRY METHOD 06/13/2024 11:30 AM [facility] Calcium 9.5 8.5 - 10.5 mg/dL LAB CHEMISTRY METHOD 06/13/2024 11:30 AM [facility] Blood Venous blood specimen / Unknown Venipuncture / Unknown 06/13/2024 5:32 AM EST 06/13/2024 10:14 AM EST us Lauren Garcia MD LAB BLOOD ORDERABLES Fin al Result [facility] [address] [place] [address], * (ABNORMAL) Complete blood count (06/13/2024 5:32 AM EST) WBC 8.2 4.8 - 10.8 K/mcL LAB HEMETOLOGY METHOD 06/13/2024 10:40 AM [facility] RBC 3.70(L) 3.80 - 4.80 M/mcL LAB HEMETOLOGY METHOD 06/13/2024 10:40 AM [facility] Hemoglobin 9.5(L) 11.5 - 16.0 g/dL LAB HEMETOLOGY METHOD 06/13/2024 10:40 AM [facility] LAB Hematocrit 31.9(L) 35.0 - 47.0 % LAB HEMETOLOGY METHOD 06/13/2024 10:40 AM [facility] LAB MCV 86.9 79.0 - 98.0 FL LAB HEMETOLOGY METHOD 06/13/2024 10:40 AM [facility] LAB MCH 25.9(L) 27.0 - 32.0 pcg LAB HEMETOLOGY METHOD 06/13/2024 10:40 AM [facility] LAB MCHC 29.8(L) 32.0 - 37.0 g/dL LAB HEMETOLOGY METHOD 06/13/2024 10:40 AM [facility] LAB RDW 16.6(H) 11.0 - 15.0 % LAB HEMETOLOGY METHOD 06/13/2024 10:40 AM [facility] LAB Platelets 168 130 - 400 K/mcL LAB HEMETOLOGY METHOD 06/13/2024 10:40 AM [facility] LAB MPV 12.2(H) 7.0 - 11.0 FL LAB HEMETOLOGY METHOD 06/13/2024 10:40 AM [facility] LAB NRBC 0.0 <1.0 % LAB HEMETOLOGY METHOD 06/13/2024 10:40 AM [facility] NRBC Absolute 0.00 <0.10 K/mcL LAB HEMETOLOGY METHOD 06/13/2024 10:40 AM [facility] Blood Venous blood specimen / Unknown Venipuncture / Unknown 06/13/2024 5:32 AM EST 06/13/2024 10:14 AM EST Lauren Garcia MD LAB BLOOD ORDERABLES Fin al Result [facility] ([facility]) [facility] [address] [place] [address], documented in this encounter Visit Diagnoses Diagnosis Essential (primary) hypertension Unspecified essential hypertension documented in this encounter Additional Health Concerns Infection Onset Date Last Indicated Resolved Time 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
--- OUTSIDE RECORDS SUMMARY | 2025-02-16 19:48 | XMS_ITS | Encounter Summary ---
Author Organization [facility] Address [address] [place] [address] Care Team Providers Care Msws Name Role Phone Lauren Garcia MD Primary Care Provider + Encounter Details Date Type Department Care Team (Late st Contact Info) Description 05/11/2024 Lab Requisition [facility] - Main Lab 299 [facility] [place] [address] Lauren Garcia MD 819 [facility] 1 [place], [place] [phone] Chronic kidney disease, unspecified; Essential (primary) hypertension; [...] mmol/L LAB CHEMISTRY METHOD 05/11/2024 10:09 AM [facility] Potassium 5.0 3.5 - 5.5 mmol/L LAB CHEMISTRY METHOD 05/11/2024 10:09 AM [facility] Chloride 105 96 - 110 mmol/L LAB CHEMISTRY METHOD 05/11/2024 10:09 AM [facility] CO2 25 21 - 32 mmol/L LAB CHEMISTRY METHOD 05/11/2024 10:09 AM [facility] Anion Gap 6 3 - 11 LAB CHEMISTRY METHOD 05/11/2024 10:09 AM [facility] Glucose 130(H) 70 - 100 mg/dL LAB CHEMISTRY METHOD 05/11/2024 10:09 AM [facility] BUN 24 5 - 25 mg/dL LAB CHEMISTRY METHOD 05/11/2024 10:09 AM [facility] Creatinine 1.13(H) 0.50 - 1.10 mg/dL LAB CHEMISTRY METHOD 05/11/2024 10:09 AM [facility] LAB eGFR 47(L) >=60 mL/min/1. 73m2 LAB CHEMISTRY METHOD 05/11/2024 10:09 AM [facility] Comment:Calculation based on the Chronic Kidney Disease Epidemiology Collaboration (CKD-EPI) equation refit without adjustment for race. BUN/Creatinine Ratio 21.2 LAB CHEMISTRY METHOD 05/11/2024 10:09 AM [facility] Calcium 9.7 8.5 - 10.5 mg/dL LAB CHEMISTRY METHOD 05/11/2024 10:09 AM [facility] Blood Venous blood specimen / Unknown Venipuncture / Unknown 05/11/2024 6:33 AM EST 05/11/2024 9:28 AM EST us Lauren Garcia MD LAB BLOOD ORDERABLES Fin al Result [facility] [address] [place] [address], * (ABNORMAL) Complete blood count (05/11/2024 6:33 AM EST) [facility] WBC 9.1 4.8 - 10.8 K/mcL LAB HEMETOLOGY METHOD 05/11/2024 9:52 AM [facility] RBC 4.70 3.80 - 4.80 M/mcL LAB HEMETOLOGY METHOD 05/11/2024 9:52 AM [facility] Hemoglobin 11.6 11.5 - 16.0 g/dL LAB HEMETOLOGY METHOD 05/11/2024 9:52 AM [facility] Hematocrit 40.5 35.0 - 47.0 % LAB HEMETOLOGY METHOD 05/11/2024 9:52 AM [facility] MCV 87.1 79.0 - 98.0 FL LAB HEMETOLOGY METHOD 05/11/2024 9:52 AM [facility] MCH 24.9(L) 27.0 - 32.0 pcg LAB HEMETOLOGY METHOD 05/11/2024 9:52 AM [facility] MCHC 28.6(L) 32.0 - 37.0 g/dL LAB HEMETOLOGY METHOD 05/11/2024 9:52 AM [facility] RDW 14.3 11.0 - 15.0 % LAB HEMETOLOGY METHOD 05/11/2024 9:52 AM [facility] Platelets 225 130 - 400 K/mcL LAB HEMETOLOGY METHOD 05/11/2024 9:52 AM [facility] LAB MPV 12.1(H) 7.0 - 11.0 FL LAB HEMETOLOGY METHOD 05/11/2024 9:52 AM [facility] NRBC 0.0 <1.0 % LAB HEMETOLOGY METHOD 05/11/2024 9:52 AM [facility] NRBC Absolute 0.00 <0.10 K/mcL LAB HEMETOLOGY METHOD 05/11/2024 9:52 AM EST [facility] Blood Venous blood specimen / Unknown Venipuncture / Unknown 05/11/2024 6:33 AM EST 05/11/2024 9:28 AM EST us Lauren Garcia MD LAB BLOOD ORDERABLES Fin al Result [facility] [address] [place] [address], documented in this encounter Visit Diagnoses Diagnosis Chronic kidney disease, unspecified Essential (primary) hypertension Unspecified essential hypertension Displaced comminuted fracture of shaft of right tibia, subsequent encounter for closed fracture with routine healing documented in this encounter Additional Health Concerns Infection Onset Date Last Indicated Resolved Time 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
--- OUTSIDE RECORDS SUMMARY | 2025-02-16 19:48 | XMS_ITS | Encounter Summary ---
Author Organization [facility] Address [address] [place] [address] Care Team Providers Care Operations Liaison Name Role Phone Lauren Garcia MD Primary Care Provider + Encounter Details Date Type Department Care Team (Late st Contact Info) Description 06/19/2024 Lab Requisition [facility] - Main Lab 299 [facility] [place] [address] Lauren Garcia MD [address] [phone] Essential (primary) hypertension Social History Tobacco Use [...] LAB CHEMISTRY METHOD 06/20/2024 11:15 AM EST [facility] Potassium 4.0 3.5 - 5.5 mmol/L LAB CHEMISTRY METHOD 06/20/2024 11:15 AM EST [facility] Chloride 106 96 - 110 mmol/L LAB CHEMISTRY METHOD 06/20/2024 11:15 AM [facility] LAB CO2 27 21 - 32 mmol/L LAB CHEMISTRY METHOD 06/20/2024 11:15 AM [facility] LAB Anion Gap 6 3 - 11 LAB CHEMISTRY METHOD 06/20/2024 11:15 AM [facility] LAB Glucose 83 70 - 100 mg/dL LAB CHEMISTRY METHOD 06/20/2024 11:15 AM [facility] BUN 20 5 - 25 mg/dL LAB CHEMISTRY METHOD 06/20/2024 11:15 AM [facility] Creatinine 1.05 0.50 - 1.10 mg/dL LAB CHEMISTRY METHOD 06/20/2024 11:15 AM [facility] LAB eGFR 52(L) >=60 mL/min/1. 73m2 LAB CHEMISTRY METHOD 06/20/2024 11:15 AM [facility] LAB Comment:Calculation based on the Chronic Kidney Disease Epidemiology Collaboration (CKD-EPI) equation refit without adjustment for race. BUN/Creatinine Ratio 19.0 LAB CHEMISTRY METHOD 06/20/2024 11:15 AM [facility] Calcium 9.5 8.5 - 10.5 mg/dL LAB CHEMISTRY METHOD 06/20/2024 11:15 AM [facility] Blood Venous blood specimen / Unknown Venipuncture / Unknown 06/20/2024 6:51 AM EST 06/20/2024 10:15 AM EST us Lauren Garcia MD LAB BLOOD ORDERABLES Fin al Result [facility] [address] [place] [address], * (ABNORMAL) Complete blood count (06/20/2024 6:51 AM EST) WBC 7.0 4.8 - 10.8 K/mcL LAB HEMETOLOGY METHOD 06/20/2024 10:51 AM [facility] RBC 3.80 3.80 - 4.80 M/mcL LAB HEMETOLOGY METHOD 06/20/2024 10:51 AM [facility] Hemoglobin 9.8(L) 11.5 - 16.0 g/dL LAB HEMETOLOGY METHOD 06/20/2024 10:51 AM [facility] Hematocrit 33.0(L) 35.0 - 47.0 % LAB HEMETOLOGY METHOD 06/20/2024 10:51 AM [facility] LAB MCV 86.4 79.0 - 98.0 FL LAB HEMETOLOGY METHOD 06/20/2024 10:51 AM [facility] MCH 25.7(L) 27.0 - 32.0 pcg LAB HEMETOLOGY METHOD 06/20/2024 10:51 AM [facility] MCHC 29.7(L) 32.0 - 37.0 g/dL LAB HEMETOLOGY METHOD 06/20/2024 10:51 AM [facility] RDW 16.4(H) 11.0 - 15.0 % LAB HEMETOLOGY METHOD 06/20/2024 10:51 AM [facility] Platelets 211 130 - 400 K/mcL LAB HEMETOLOGY METHOD 06/20/2024 10:51 AM [facility] MPV 12.3(H) 7.0 - 11.0 FL LAB HEMETOLOGY METHOD 06/20/2024 10:51 AM [facility] NRBC 0.0 <1.0 % LAB HEMETOLOGY METHOD 06/20/2024 10:51 AM [facility] NRBC Absolute 0.00 <0.10 K/mcL LAB HEMETOLOGY METHOD 06/20/2024 10:51 AM [facility] Blood Venous blood specimen / Unknown Venipuncture / Unknown 06/20/2024 6:51 AM EST 06/20/2024 10:15 AM EST us Lauren Garcia MD LAB BLOOD ORDERABLES Fin al Result [facility] ([facility]) 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
--- OUTSIDE RECORDS SUMMARY | 2025-02-16 19:48 | XMS_ITS | Encounter Summary ---
Author Organization [employer] [facility] Address [address] [place] [address] Care Team Providers Care Static Balancer Name Role Phone Lauren Garcia MD Primary Care Provider + Encounter Details Date Type Department Care Team (Late st Contact Info) Description 05/09/2024 Lab Requisition [facility] - Main Lab [address] [facility] [place] [address] Lauren Garcia MD [address] [facility] 1 [place], [place] [id number] Frequency of micturition Social History Tobacco Use [...] reflex microscopic (05/08/2024 8:00 PM EST) Specific [place] Urine 1.017 1.003 - 1.030 LAB URINALYSIS - AUTOMATED METHOD 05/09/2024 11:42 AM [facility] pH, Urine 5.5 5.0 - 8.0 pH LAB URINALYSIS - AUTOMATED METHOD 05/09/2024 11:42 AM [facility] Leukocytes, Urine Large(A) Negative LAB URINALYSIS - AUTOMATED METHOD 05/09/2024 11:42 AM [facility] Nitrite, Urine Negative Negative LAB URINALYSIS - AUTOMATED METHOD 05/09/2024 11:42 AM [facility] Protein, Urine 100(A) <=Trace mg/dL LAB URINALYSIS - AUTOMATED METHOD 05/09/2024 11:42 AM [facility] Glucose, Urine Negative Negative mg/dL LAB URINALYSIS - AUTOMATED METHOD 05/09/2024 11:42 AM [facility] Ketones, Urine Negative Negative mg/dL LAB URINALYSIS - AUTOMATED METHOD 05/09/2024 11:42 AM [facility] Urobilinogen, Urine 0.2 0.2 - 1.0 mg/dL LAB URINALYSIS - AUTOMATED METHOD 05/09/2024 11:42 AM [facility] Bilirubin, Urine Negative Negative LAB URINALYSIS - AUTOMATED METHOD 05/09/2024 11:42 AM [facility] Blood, Urine Trace(A) Negative LAB URINALYSIS - AUTOMATED METHOD 05/09/2024 11:42 AM [facility] RBC, Urine 5.9(H) 0 - 4 /HPF LAB URINALYSIS - AUTOMATED METHOD 05/09/2024 11:42 AM [facility] WBC, Urine 359.9(H) 0 - 4 /HPF LAB URINALYSIS - AUTOMATED METHOD 05/09/2024 11:42 AM [facility] Squamous Epithelial, Urine 4 0 - 60 /LPF LAB URINALYSIS - AUTOMATED METHOD 05/09/2024 11:42 AM EST [facility] Bacteria, Urine Many(A) Negative /HPF LAB URINALYSIS - AUTOMATED METHOD 05/09/2024 11:42 AM EST [facility] Hyaline Casts, Urine 0.4 0 - 3 /LPF LAB URINALYSIS - AUTOMATED METHOD 05/09/2024 11:42 AM EST [facility] Urine Urine specimen from urethra / Unknown 05/08/2024 8:00 PM EST 05/09/2024 10:56 AM EST us Lauren Garcia MD LAB URINE ORDERABLES Fin al Result [facility] [address] [place] [address], * (ABNORMAL) Culture urine (05/08/2024 8:00 PM EST) Culture, Urine 10,000-49,000 CFU/mL Caryl tropicalis(A) JULISSA 05/13/2024 11:12 AM EST [facility] Comment: The organism value for this result has been updated. These results have been appended to the previously preliminary verified report. Edited result: Previously reported as Yeast on 05/12/2024 at 0916 EST. 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) JULISSA 05/13/2024 11:12 AM EST [facility] Comment: The organism value [...] MICROBIOLOGY - GENER AL ORDERABLES Final Result [facility] [address] [place] [address], [place] [phone] * (ABNORMAL) Urinalysis with reflex microscopic and culture (05/08/2024 8:00 PM EST) Specific [place] Urine 1.017 1.003 - 1.030 LAB URINALYSIS - AUTOMATED METHOD 05/09/2024 11:18 AM [facility] pH, Urine 5.5 5.0 - 8.0 pH LAB URINALYSIS - AUTOMATED METHOD 05/09/2024 11:18 AM [facility] Leukocytes, Urine Large(A) Negative LAB URINALYSIS - AUTOMATED METHOD 05/09/2024 11:18 AM [facility] Nitrite, Urine Negative Negative LAB URINALYSIS - AUTOMATED METHOD 05/09/2024 11:18 AM [facility] Protein, Urine 100(A) <=Trace mg/dL LAB URINALYSIS - AUTOMATED METHOD 05/09/2024 11:18 AM [facility] Glucose, Urine Negative Negative mg/dL LAB URINALYSIS - AUTOMATED METHOD 05/09/2024 11:18 AM [facility] Ketones, Urine Negative Negative mg/dL LAB URINALYSIS - AUTOMATED METHOD 05/09/2024 11:18 AM [facility] Urobilinogen, Urine 0.2 0.2 - 1.0 mg/dL LAB URINALYSIS - AUTOMATED METHOD 05/09/2024 11:18 AM [facility] Bilirubin, Urine Negative Negative LAB URINALYSIS - AUTOMATED METHOD 05/09/2024 11:18 AM [facility] Blood, Urine Trace(A) Negative LAB URINALYSIS - AUTOMATED METHOD 05/09/2024 11:18 AM [facility] RBC, Urine 5.9(H) 0 - 4 /HPF LAB URINALYSIS - AUTOMATED METHOD 05/09/2024 11:18 AM [facility] WBC, Urine 359.9(H) 0 - 4 /HPF LAB URINALYSIS - AUTOMATED METHOD 05/09/2024 11:18 AM [facility] Squamous Epithelial, Urine 4 0 - 60 /LPF LAB URINALYSIS - AUTOMATED METHOD 05/09/2024 11:18 AM [facility] Bacteria, Urine Many(A) Negative /HPF LAB URINALYSIS - AUTOMATED METHOD 05/09/2024 11:18 AM [facility] Hyaline Casts, Urine 0.4 0 - 3 /LPF LAB URINALYSIS - AUTOMATED METHOD 05/09/2024 11:18 AM [facility] Urine Urine specimen from urethra / Unknown 05/08/2024 8:00 PM EST 05/09/2024 10:56 AM EST us Lauren Garcia MD LAB URINE ORDERABLES Fin al Result [facility] [address] [place] [address], documented in this encounter Visit Diagnoses Diagnosis Frequency of micturition Urinary frequency documented in this encounter Additional Health Concerns Infection Onset Date Last Indicated Resolved Time 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
--- OUTSIDE RECORDS SUMMARY | 2025-02-16 19:48 | XMS_ITS | Patient Health Record ---
Author Organization [facility] Address [address] [facility] [place] [address] Care Team Providers Care Barrel Stave Inspector Name Role Phone Renan Molina MD, May Primary Care Provider U navailable Black, Starr Unavailable [phone] Allergies No Known Allergies Reason For Referral No Information Medications Medication SIG (Take, Route, Frequency, Duration) Notes Start Date End Date Status Boniva Not-Taking Nortriptyline HCl 10 MG 1 capsule Orally Three times a day; Duration: 30 day(s) Not-Taking Pamelor 10 MG 1 capsule Orally Onc e a day; Duration: 30 day(s) Not-Ab ing Aspirin 81 MG 1 tablet Orally Once a day; Duration: 30 day(s) Active Lisinopril Active Omeprazole Active Synthroid Active Citracal Plus Not-Ta keyanna Levothyroxine Sodium Not-Taking Atorvastatin Calcium Not-Taking Social History Alcohol Screen Question Answer Notes Did you have a drink containing alcohol in the p ast year? No Points 0 Interpretation Negative Tobacco use other than smoking: Question Answer Notes Are you an other tobacco user? 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) Active confirmed Problem PlantarFlexion o f metatarsal of left foot (M21.6X2) Active confirmed Problem Localized, primary osteoarthritis of the ankle and/or foot (528344209) Arthritis of joint of lesser toe, right (M19.071) Active confirmed Plan Of Treatment Pending Test Test Name Order Date X ray : Foot, right 2V 04/23/2012 X ray : Foot, right 2V 05/28/2012 X ray : Foot, left 3V 03/16/2012 X ray : Foot, right 3V 03/16/2012 [id number] NAIL, 6 OR MORE 03/23/2020 [id number] NAIL, 6 OR MORE 09/14/2020 98814-MGUNLCQ NAIL, 6 OR MORE 12/14/2020 70699-NEPSDZN NAIL, 6 OR MORE 03/26/2021 40165-MHKSDBG NAIL, 6 OR MORE 08/21/2021 42489-BNTJRML NAIL, 6 OR MORE 11/22/2021 68276-JZQYHYA NAIL, 6 OR MORE 05/30/2022 70854-LXUANNK NAIL, 6 OR MORE 09/02/2022 53245-GVXZJFP NAIL, 6 OR MORE 12/03/2022 01944-RCSKBSN NAIL, 6 OR MORE 03/04/2023 54405-RPBGZPI NAIL, 6 OR MORE 06/09/2023 01825-Vazgzxma Plate 12/03/2022 11500-Emmdtutj Plate 05/30/2022 71983-Bwfazetf Plate 09/14/2020 37608-Pipxldqi Plate 08/21/2021 97170-Ejwmvzlp Plate 03/26/2021 23930-Iqcfolhn Plate 12/14/2020 24123-Hmecdbhr Plate 03/23/2020 62554-Jxridrhl Plate Each Additional 32025-Gfoykgax Plate Each Additional Insurance Providers Payer Name Payer Address Payer Phone Subscriber Number Group Number Insured Name Patient Relationship to Insured Coverage Start Date Coverage End Date Medicare [employer] [address] [place] [address] [id number] Lashaun Turpin Self - patient is the insured [facility] [address] RANJAN SOTO [id number] [phone] [id number] Lashaun Turpin Self - patient is the insured Medical (General) History Medical History History ICD Code Arthritis back, hip, knee pain broken bones cholesterol gall bladder problems Hiatal hernia high blood pressure sciatica thyroid disorder chicken pox measles mumps CAD (Cholesterol) Nerve disease Reflux Surgical History Surgery Date(Month/Year)
--- OUTSIDE RECORDS SUMMARY | 2025-02-16 19:48 | XMS_ITS | Encounter Summary ---
Author Organization [employer] [facility] Address [address] [place] [address] Care Team Providers Care Photographic Restorer Name Role Phone Lauren Garcia MD Primary Care Provider + Encounter Details Date Type Department Care Team (Late st Contact Info) Description 05/31/2024 Lab Requisition [facility] - Main Lab [address] [facility] [place] [address] Lauren Garcia MD [address] [facility] [address] [place], [place] [id number] Urinary tract infection, site not specified; Altered [...] reflex microscopic (05/30/2024 12:00 PM EST) Specific [place] Urine 1.019 1.003 - 1.030 LAB URINALYSIS - AUTOMATED METHOD 05/31/2024 10:47 AM [facility] pH, Urine 5.5 5.0 - 8.0 pH LAB URINALYSIS - AUTOMATED METHOD 05/31/2024 10:47 AM [facility] Leukocytes, Urine Large(A) Negative LAB URINALYSIS - AUTOMATED METHOD 05/31/2024 10:47 AM [facility] Nitrite, Urine Negative Negative LAB URINALYSIS - AUTOMATED METHOD 05/31/2024 10:47 AM [facility] Protein, Urine Trace <=Trace mg/dL LAB URINALYSIS - AUTOMATED METHOD 05/31/2024 10:47 AM [facility] Glucose, Urine Negative Negative mg/dL LAB URINALYSIS - AUTOMATED METHOD 05/31/2024 10:47 AM [facility] Ketones, Urine Negative Negative mg/dL LAB URINALYSIS - AUTOMATED METHOD 05/31/2024 10:47 AM [facility] Urobilinogen , Urine 1.0 0.2 - 1.0 mg/dL LAB URINALYSIS - AUTOMATED METHOD 05/31/2024 10:47 AM [facility] Bilirubin, Urine Negative Negative LAB URINALYSIS - AUTOMATED METHOD 05/31/2024 10:47 AM [facility] Blood, Urine Trace(A) Negative LAB URINALYSIS - AUTOMATED METHOD 05/31/2024 10:47 AM [facility] RBC, Urine 4.0 0 - 4 /HPF LAB URINALYSIS - AUTOMATED METHOD 05/31/2024 10:47 AM [facility] WBC, Urine 651.5(H) 0 - 4 /HPF LAB URINALYSIS - AUTOMATED METHOD 05/31/2024 10:47 AM [facility] Squamous Epithelial, Urine 74(H) 0 - 60 /LPF LAB URINALYSIS - AUTOMATED METHOD 05/31/2024 10:47 AM [facility] Crystals, Urine Light Calcium Oxalate /LPF 05/31/2024 10:47 AM EST [facility] Bacteria, Urine Many(A) Negative /HPF LAB URINALYSIS - AUTOMATED METHOD 05/31/2024 10:47 AM [facility] Hyaline Casts, Urine 3.0 0 - 3 /LPF LAB URINALYSIS - AUTOMATED METHOD 05/31/2024 10:47 AM [facility] Yeast, Urine Present(A) None /HPF 05/31/2024 10:47 AM [facility] Urine Urine specimen obtained by clean catch procedure / Unknown Non-blood Collection / Unknown 05/30/2024 12:00 PM EST 05/31/2024 9:02 AM EST us Lauren Garcia MD LAB URINE ORDERABLES Fin al Result [facility] [address] [place] [address], * (ABNORMAL) Culture urine (05/30/2024 12:00 PM EST) Culture, Urine >100,000 CFU/mL Escherichia coli(A) JULISSA 06/02/2024 8:13 AM [facility] Urine Urine specimen obtained by clean catch procedure / Unknown Non-blood Collection / Unknown 05/30/2024 12:00 PM EST 05/31/2024 9:02 AM EST [facility] - 06/02/2024 8:13 AM EST Additional [...] MICROBIOLOGY - GENER AL ORDERABLES Final Result [facility] ([facility] [address] [place] [address], documented in this encounter Visit Diagnoses Diagnosis Urinary tract infection, site not specified Altered mental status, unspecified documented in this encounter Additional Health Concerns Infection Onset Date Last Indicated Resolved Time VRE 05/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
[2025-02-16] MEDS: Lactated Ringers 1,000 ML 999 ML IV (20:29)
[2025-02-16] MEDS: traZODone HCL 25 MG HALFTAB 12.5 MG PO (20:29)
[2025-02-16 21:49] LABS: Alanine Aminotransferase 17 U/L (0-31); Albumin Level 3.6 g/dL (3.5-5.0); Alkaline Phosphatase 86 U/L (39-117); Anion Gap 11 (12-20); Aspartate Amino Transferase 20 U/L (5-31); Blood Urea Nitrogen 54 mg/dL (9-16); Calcium 9.7 mg/dL (8.4-10.2); Carbon Dioxide 25 mmol/L (22-29); Chloride 111 mmol/L (96-108); Creatinine Clr Calc Pharmacy 19.2; Estimated Glomerular Filt Rate 26; Potassium 5.2 mmol/L (3.3-5.1); Sodium 142 mmol/L (135-145); Total Protein 6.4 g/dL (6.5-8.0)
[2025-02-16 22:19] VITALS: BP 170/70; PULSE 75; RESP 16; TEMP 36.7; O2SAT 95
[2025-02-16 22:26] LABS: Appearance Urine Clear; Glucose Urine UA Negative (Negative); PH 7.0 (5.0-9.0); Specific Gravity - Urine 1.015 (1.005-1.025); UMIC TRIGGER UACC YES
--- NOTE | 2025-02-16 23:08 | HO.PM.IMCN ---
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 In the ED, she was found to have acute on chronic kidney injury and mild hyperkalemia. She received treatment with Lokelma 10 mg p.o and LR 1 L bolus. Review of Systems Review of Systems: All 12 systems were reviewed and normal except as noted in HPI. [facility] Medical History (Updated 02/16/25 @ 23:37 by Oracio Kearney MD) Dementia with agitation Aggressive behavior Hiatal hernia History of DVT (deep vein thrombosis) HTN (hypertension) Hypothyroid Recurrent UTI HLD (hyperlipidemia) Dementia Surgical History History of ankle surgery H/O colonoscopy Social History Household Members: Unknown / Unable to assess Housing: Unknown / Unable to assess Housing Other:: Hari Adler Are you a primary nurse healthcare manager to a significant other at home: No Do you presently have visiting nurse or other home services: Yes Alcohol intake: former Patient Tobacco Use Status: Former Tobacco user Tobacco use type: Cigarette Smoked in Last 30 Days: No e-Cigarette/Vaping Use: Former Use Use of substances other than those prescribed or required for medical reasons: No Advance Directives: Yes Advance Directives on File: Yes Advance Directives Date on File: 04/19/24 Do you have a plan to hurt others: No Plan service: No Meds Allergies Allergy/AdvReac Type Severity Reaction Status Date / Time No Known Allergies Allergy Verified 02/16/25 16:56 Active Medications: Current Medications Ascorbic Acid (Ascorbic Acid 250 Mg Tablet) 250 mg PO DAILY NESS Aspirin (Aspirin Enteric Coated 81 Mg Tablet.) 81 mg PO DAILY NESS Atorvastatin Calcium (Atorvastatin Calcium 40 Mg Tablet) 40 mg PO BEDTIME NESS Ferrous Sulfate (Ferrous Sulfate 324 Mg Tablet.) 324 mg PO DAILY NESS Hydrochlorothiazide (Hydrochlorothiazide 12.5 Mg Tablet) 12.5 mg PO DAILY [facility]; Protocol Levothyroxine Sodium (Levothyroxine Sodium 50 Mcg Tablet) 50 mcg PO DAILY@0600 [facility] Loperamide HCl (Loperamide Hcl 2 Mg Capsule) 2 mg PO Q6H PRN PRN Reason: Loose Stool Magnesium Hydroxide (Milk Of Magnesia 30 Ml Oral.Susp) 30 ml PO DAILY PRN PRN Reason: Constipation Melatonin (Melatonin 3 Mg Tablet) 6 mg PO BEDTIME [facility] Omeprazole (Omeprazole 20 Mg Capsule.Dr) 20 mg PO BID@0630,1630 [facility] Quetiapine Fumarate (Quetiapine Fumarate 50 Mg Tablet) 50 mg PO TID@0700,1200,1600 [facility] Last Admin: 02/16/25 21:45 Dose: Not Given Rivaroxaban (Rivaroxaban 20 Mg Tablet) 20 mg PO DAILY@0730 [facility] Senna (Sennosides 8.6 Mg Tablet) 8.6 mg PO BID PRN PRN Reason: Constipation Sertraline HCl (Sertraline Hcl 25 Mg Tablet) 75 mg PO DAILY [facility] Trazodone HCl (Trazodone Hcl 50 Mg Tablet) 12.5 mg PO DAILY@1600 [facility] Vitamin D (Cholecalciferol (Vitamin D3) 25 Mcg Tablet) 50 mcg PO DAILY [facility] Zinc Oxide (Zinc Oxide 20% Ointment 28.35 Gm Tube) 1 appl TOPICAL BID [facility] Home Medications ?Medication ?Instructions ?Recorded ?Confirmed ?Last Taken ?Type ascorbic acid (vitamin C) 250 mg 250 mg PO DAILY 11/13/24 02/16/25 Unknown History tablet (Vitamin C) aspirin 81 mg tablet,delayed 81 mg PO DAILY 11/13/24 02/16/25 11/12/24 History release atorvastatin 40 mg tablet 40 mg PO BEDTIME 11/13/24 02/16/25 Unknown History cholecalciferol (vitamin D3) 50 50 mcg PO DAILY 11/13/24 02/16/25 Unknown History mcg (2,000 unit) capsule (Vitamin D3) hydrochlorothiazide 12.5 mg tablet 12.5 mg PO DAILY 11/13/24 02/16/25 Unknown History levothyroxine 50 mcg tablet 50 mcg PO DAILY@0600 11/13/24 02/16/25 Unknown History lisinopril 10 mg tablet 15 mg PO DAILY 11/13/24 02/16/25 Unknown History sertraline 50 mg tablet 75 mg PO DAILY 11/13/24 02/16/25 Unknown History magnesium hydroxide 400 mg/5 mL 30 ml PO DAILY PRN Constipation 11/14/24 02/16/25 Unknown History oral suspension (Milk of Magnesia) melatonin 3 mg tablet 6 mg PO BEDTIME 11/14/24 02/16/25 Unknown History rivaroxaban 20 mg tablet (Xarelto) 20 mg PO DAILY@0730 11/14/24 02/16/25 11/12/24 History sennosides 8.6 mg tablet (senna) 8.6 mg PO BID PRN Constipation 11/14/24 02/16/25 Unknown History ferrous gluconate 324 mg (38 mg 324 mg PO DAILY 12/13/24 02/16/25 Unknown History iron) tablet quetiapine 50 mg tablet 50 mg PO TID@0700,1200,1600 12/13/24 02/16/25 Unknown History trazodone 50 mg tablet 12.5 mg PO DAILY@1600 12/13/24 02/16/25 Unknown History zinc oxide 13 % topical cream 1 appl topical BID 12/13/24 02/16/25 Unknown History (Desitin Daily Defense) Lactobacillus acidophilus 500 500 mmu cells PO DAILY 02/09/25 02/16/25 Unknown History million cell capsule cephalexin 250 mg tablet 250 mg PO MOWEFR@0900 02/09/25 02/16/25 Unknown History cholecalciferol (vitamin D3) 1,250 1,250 mcg PO QMONTH 02/09/25 02/16/25 Unknown History mcg (50,000 unit) tablet loperamide 2 mg tablet 2 mg PO Q6H PRN Loose Stool 02/09/25 02/16/25 Unknown History omeprazole 20 mg capsule,delayed 20 mg PO BID@0630,1630 02/09/25 02/16/25 Unknown History release Physical Exam Vital Signs and Narrative: Vital Signs: Last Vital Signs Temp 98.1 F 02/16/25 22:19 Pulse 75 02/16/25 22:19 Resp 16 02/16/25 22:19 BP 170/70 H 02/16/25 22:19 Pulse Ox 95 02/16/25 22:19 O2 Del Method Room Air 02/16/25 22:19 BMI result Body Mass Index 32.7 General: Alert, oriented, in no acute distress. Cooperative. Pleasant. Afebrile. HEENT: Head normocephalic, some tenderness in the right parietal area no scalp wounds. PERRLA, EOMI. Sclerae anicteric, conjunctiva clear. Oropharynx without erythema or exudate. Mucous membranes moist. Neck: Supple. Heart: RRR, no murmurs, rubs or gallops. Lungs: Clear to auscultation bilaterally. No wheezes, rales, or rhonchi. Normal respiratory effort. Abdomen: Soft, non tenderness, nondistended, normoactive bowel sounds. No hepatosplenomegaly, masses, rebound or guarding. Extremities: Bilateral lower extremity edema. Non tenderness. Musculoskeletal: Full range of motion. No joint swelling, deformity, or tenderness. Generalized muscle atrophy.. Skin: Warm/Dry. No pallor. No jaundice. Neurologic: Alert & oriented x4. Moving all extremities spontaneously. Normal speech. Psychological: Normal mood and affect. Thought process coherent. Results Labs 02/16/25 17:07 02/16/25 21:25 Labs: Laboratory Results - last 24 hr 02/16/25 02/16/25 02/16/25 17:07 21:25 22:21 MCV 91.4 MCH 28.3 MCHC 30.9 L RDW 14.3 Plt Count 204 MPV 10.6 Immature Gran % (Auto) 0.5 H Neut % (Auto) 64.4 Lymph % (Auto) 21.5 [place] % (Auto) 8.1 Eos % (Auto) 4.5 H Baso % (Auto) 1.0 Lymph # (Auto) 1.3 [place] # (Auto) 0.5 Eos # (Auto) 0.3 Baso # (Auto) 0.1 Abs Immat Gran (auto) 0.03 Absolute Neuts (auto) 3.7 Absolute Nucleated RBC 0.000 Nucleated RBC % (auto) 0.0 Anion Gap 13 11 L Estim Creat Clear Calc 16.5 19.2 Estimated GFR 22 26 Random Glucose 100 94 Calcium 9.8 D 9.7 Magnesium 2.0 Total Bilirubin 0.4 0.4 AST 21 20 ALT 15 17 Alkaline Phosphatase 92 86 Total Creatine Kinase 65 Troponin I High Sens 4.9 Total Protein 6.6 6.4 L Albumin 3.7 3.6 Urine Color Yellow Urine Appearance Clear Urine pH 7.0 Ur Specific [place] 1.015 Urine Protein Negative Urine Glucose (UA) Negative Urine Ketones Negative Urine Blood Trace H Urine Nitrite Negative Ur Leukocyte Esterase Negative Urine RBC 3-5 H Urine WBC 0-5 Ur Squamous Epith Cells 0-2 Urine Bacteria None Seen Hyaline Casts 0-2 Assessment and Plan (1) Acute kidney injury superimposed on chronic kidney disease: Status: Acute (2) Hyperkalemia: Status: Acute Plan Lashaun Turpin is a very pleasant 89 y/o woman who presents with: Acute on chronic kidney injury, secondary to hydrochlorothiazide and lisinopril; renal function improved significantly after IV fluids. Minimal hyperkalemia. 5.3 --> now 5.2. Received Lokelma. No peaked T-waves. Recommendations: -Discontinue lisinopril, hydrochlorothiazide and Bactrim; do not resume. -Start amlodipine 5 mg p.o. daily for blood pressure control. -Hold Xarelto and please restart when GFR > 30. Bilateral lower extremities venous US done today and showed: No DVT. -Encourage oral hydration. -Repeat BMP in 2 days, if hyperkalemia or worsening renal function please return to the ED. -Continue other home meds for chronic diseases. Thank you for allowing me to participate in this patient's cares. This documentation was generated using dictation software; minor spreading or custody officer errors may be present.
--- NOTE | 2025-02-16 23:25 | HO.NURTONUR ---
Addendum entered by Gisela Franz RN 02/16/25 23:58: second creatinine 1.8 Original Note: 81-year-old female with medical history of dementia with agitation, HTN, hypothyroidism, HLD on xarelto, presents to the ED by EMS after an unwitnessed fall at her assisted living home. Message has AMS but patient has dementia. Patient with dementia is oriented to self and location, however is a poor historian and does not have much information over her fall today. PMH: Dementia with agitation Aggressive behavior Hiatal hernia History of DVT (deep vein thrombosis) HTN (hypertension) Hypothyroid Recurrent UTI HLD (hyperlipidemia) Dementia Pt has been very pleasant this shift for me. Purewick in place. can use call light. 22g IV [address] CT head -NEG, Cspine- shows DJD K+ 5.3, HGB 9.9 Creat 2.14 Admit dx GISSELL
--- NOTE | 2025-02-16 23:31 | PC.NURSE ---
sent nurse report for pt admit TO [facility] #[id number]
[2025-02-17 00:49] VITALS: BP 158/67; PULSE 74; RESP 12; TEMP 36.7; O2SAT 95
[2025-02-17 04:00] VITALS: BP 115/46; TEMP 36.7
--- NOTE | 2025-02-17 04:13 | PC.NURSE ---
Late entry for [id number] Staff working together with registration as patient determined to not meet inpatient level of care and no longer requested admission. Per hospitalist the patient was able to be discharged back to her facility via ems. EMS called pending discharge however ED provider was having difficulties putting in the patient's discharge instructions and submitting her prescription for amlodipine. Staff attempted to get help from the warehouse receiving supervisor but that was also unsuccessful. Staff agreed to have a paper script pulled from the [facility] and filled out to be returned back to the facility with the patient and to have her discharge instructions typed up and printed off the printer to further explain her home care needs, plan and medication adjustments. CAROLEE wanted to call the facility to give a provider to nurse or healthcare provider report but was unsuccessful as she was informed that there were no healthcare professionals available overnight. At this time, the pt's left AC line was removed by this RN with catheter tip intact and bleeding controlled. CAROLEE and insert cutter discussed options and felt that having the patient stay until morning when a full nurse to nurse report could be given and staff at the facility briefed on the changes to her medications and necessary follow up can be provided s/t the patient's dementia and inability to be a reliable historian/radio reporter of information. Paper script and printed discharge instructions from the CAROLEE have been given to the pathology secretary/transcriptionist to accompany the patient back to her facility.
[2025-02-17 05:52] VITALS: BP 147/60; PULSE 74; RESP 20; TEMP 36.4; O2SAT 94
--- NOTE | 2025-02-17 08:28 | PC.NURSE ---
RN attempted to call report to [facility]. RN unable to take report at that time. RN to call back after med pass.
[2025-02-17 09:58] VITALS: BP 128/75; PULSE 68; RESP 16; TEMP 36.6; O2SAT 94
[2025-02-17 10:00] VITALS: BP 136/59; PULSE 72; RESP 15; TEMP 36.6; O2SAT 96
[2025-02-17] MEDS: Aspirin Enteric Coated 81 MG TABLET.DR PO (10:11)
[2025-02-17 10:12] VITALS: BP 136/59
[2025-02-17] MEDS: Ferrous Sulfate 324 MG TABLET.DR PO (10:12)
--- OUTSIDE RECORDS SUMMARY | 2025-02-17 11:00 | XMS_ITS | Encounter Summary ---
Author Organization [employer] [facility] Address [address] [place] [address] Care Team Providers Care Crew Caller Name Role Phone Lauren Garcia MD Primary Care Provider + Encounter Details Date Type Department Care Team (Late st Contact Info) Description 06/09/2024 Lab Requisition [facility] - Main Lab [address] [facility] [place] [address] Lauren Garcia MD [address] [id number] Altered mental status, unspecified; Vitamin D deficiency, [...] LAB CHEMISTRY METHOD 06/09/2024 11:28 AM EST [facility] Potassium 4.3 3.5 - 5.5 mmol/L LAB CHEMISTRY METHOD 06/09/2024 11:28 AM EST [facility] Chloride 104 96 - 110 mmol/L LAB CHEMISTRY METHOD 06/09/2024 11:28 AM [facility] CO2 26 21 - 32 mmol/L LAB CHEMISTRY METHOD 06/09/2024 11:28 AM [facility] Anion Gap 9 3 - 11 LAB CHEMISTRY METHOD 06/09/2024 11:28 AM [facility] Glucose 87 70 - 100 mg/dL LAB CHEMISTRY METHOD 06/09/2024 11:28 AM [facility] BUN 51(H) 5 - 25 mg/dL LAB CHEMISTRY METHOD 06/09/2024 11:28 AM [facility] Creatinine 2.09(H) 0.50 - 1.10 mg/dL LAB CHEMISTRY METHOD 06/09/2024 11:28 AM [facility] eGFR 23(L) >=60 mL/min/1. 73m2 LAB CHEMISTRY METHOD 06/09/2024 11:28 AM [facility] Comment:Calculation based on the Chronic Kidney Disease Epidemiology Collaboration (CKD-EPI) equation refit without adjustment for race. BUN/Creatinine Ratio 24.4 LAB CHEMISTRY METHOD 06/09/2024 11:28 AM [facility] Calcium 9.7 8.5 - 10.5 mg/dL LAB CHEMISTRY METHOD 06/09/2024 11:28 AM [facility] Blood Venous blood specimen / Unknown Venipuncture / Unknown 06/09/2024 7:19 AM EST 06/09/2024 10:24 AM EST us Lauren Garcia MD LAB BLOOD ORDERABLES Fin al Result [facility] [address] [place] [address], * (ABNORMAL) Complete blood count (06/09/2024 7:19 AM EST) WBC 5.5 4.8 - 10.8 K/mcL LAB HEMETOLOGY METHOD 06/09/2024 11:24 AM [facility] RBC 3.90 3.80 - 4.80 M/mcL LAB HEMETOLOGY METHOD 06/09/2024 11:24 AM [facility] Hemoglobin 10.1(L) 11.5 - 16.0 g/dL LAB HEMETOLOGY METHOD 06/09/2024 11:24 AM [facility] Hematocrit 33.6(L) 35.0 - 47.0 % LAB HEMETOLOGY METHOD 06/09/2024 11:24 AM [facility] MCV 85.3 79.0 - 98.0 FL LAB HEMETOLOGY METHOD 06/09/2024 11:24 AM [facility] MCH 25.6(L) 27.0 - 32.0 pcg LAB HEMETOLOGY METHOD 06/09/2024 11:24 AM [facility] MCHC 30.1(L) 32.0 - 37.0 g/dL LAB HEMETOLOGY METHOD 06/09/2024 11:24 AM [facility] RDW 16.5(H) 11.0 - 15.0 % LAB HEMETOLOGY METHOD 06/09/2024 11:24 AM [facility] Platelets 185 130 - 400 K/mcL LAB HEMETOLOGY METHOD 06/09/2024 11:24 AM [facility] MPV 13.0(H) 7.0 - 11.0 FL LAB HEMETOLOGY METHOD 06/09/2024 11:24 AM [facility] NRBC 0.0 <1.0 % LAB HEMETOLOGY METHOD 06/09/2024 11:24 AM [facility] NRBC Absolute 0.00 <0.10 K/mcL LAB HEMETOLOGY METHOD 06/09/2024 11:24 AM EST [facility] Blood Venous blood specimen / Unknown Venipuncture / Unknown 06/09/2024 7:19 AM EST 06/09/2024 10:24 AM EST Lauren Garcia MD LAB BLOOD ORDERABLES Fin al Result [facility] [address] [place] [address], documented in this encounter Visit Diagnoses Diagnosis Altered mental status, unspecified Vitamin D deficiency, unspecified documented in this encounter Additional Health Concerns Infection Onset Date Last Indicated Resolved Time 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
--- OUTSIDE RECORDS SUMMARY | 2025-02-17 11:00 | XMS_ITS | Encounter Summary ---
Author Organization [employer] Address [address] [place] [address] Care Team Providers Care Wellness Program Manager Name Role Phone Lauren Garcia MD Primary Care Provider + Encounter Details Date Type Department Care Team (Late st Contact Info) Description 06/01/[address] [facility] - Main Lab [address] [facility] [place] [address] Lauren Garcia MD 819 [facility] 1 [place], [place] [id number] Altered mental status, unspecified; Urinary tract infection, [...] reflex microscopic (05/31/2024 2:00 PM EST) Specific [place] Urine 1.024 1.003 - 1.030 LAB URINALYSIS - AUTOMATED METHOD 06/01/2024 11:[address] [facility] pH, Urine 5.5 5.0 - 8.0 pH LAB URINALYSIS - AUTOMATED METHOD 06/01/2024 11:[address] [facility] Leukocytes, Urine Small(A) Negative LAB URINALYSIS - AUTOMATED METHOD 06/01/2024 11:[address] [facility] Nitrite, Urine Positive(A) Negative LAB URINALYSIS - AUTOMATED METHOD 06/01/2024 11:[address] [facility] Protein, Urine Trace <=Trace mg/dL LAB URINALYSIS - AUTOMATED METHOD 06/01/2024 11:[address] [facility] Glucose, Urine Negative Negative mg/dL LAB URINALYSIS - AUTOMATED METHOD 06/01/2024 11:[address] [facility] Ketones, Urine Trace(A) Negative mg/dL LAB URINALYSIS - AUTOMATED METHOD 06/01/2024 11:[address] [facility] Urobilinogen , Urine 1.0 0.2 - 1.0 mg/dL LAB URINALYSIS - AUTOMATED METHOD 06/01/2024 11:[address] [facility] Bilirubin, Urine Negative Negative LAB URINALYSIS - AUTOMATED METHOD 06/01/2024 11:[address] [facility] Blood, Urine Negative Negative LAB URINALYSIS - AUTOMATED METHOD 06/01/2024 11:[address] [facility] RBC, Urine 2.0 0 - 4 /HPF LAB URINALYSIS - AUTOMATED METHOD 06/01/2024 11:[address] [facility] WBC, Urine 8.0(H) 0 - 4 /HPF LAB URINALYSIS - AUTOMATED METHOD 06/01/2024 11:[address] [facility] Squamous Epithelial, Urine 10 0 - 60 /LPF LAB URINALYSIS - AUTOMATED METHOD 06/01/2024 11:26 AM EST [facility] Crystals, Urine MOD CALCIUM OXALATE /LPF LAB URINALYSIS - AUTOMATED METHOD 06/01/2024 11:[address] [facility] Bacteria, Urine Many(A) Negative /HPF LAB URINALYSIS - AUTOMATED METHOD 06/01/2024 11:[address] [facility] Hyaline Casts, Urine 0.0 0 - 3 /LPF LAB URINALYSIS - AUTOMATED METHOD 06/01/2024 11:[address] [facility] Urine Urine specimen obtained by clean catch procedure / Unknown Non-blood Collection / Unknown 05/31/2024 2:00 PM EST 06/01/2024 11:04 AM EST Lauren Garcia MD LAB URINE ORDERABLES Fin al Result [facility] [address] [place] [address], * (ABNORMAL) Culture urine (05/31/2024 2:00 PM EST) Culture, Urine >100,000 CFU/mL Escherichia coli(A) JULISSA 06/03/2024 9:[address] 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
--- OUTSIDE RECORDS SUMMARY | 2025-02-17 11:00 | XMS_ITS | Encounter Summary ---
Author Organization [employer] Address [address] [place] [address] Care Team Providers Care Shotblaster Name Role Phone Lauren Garcia MD Primary Care Provider + Encounter Details Date Type Department Care Team (Late st Contact Info) Description 06/06/2024 Lab Requisition [facility] - Main Lab [address] [facility] [place] [address] Lauren Garcia MD 8[address] [facility] 1 [place], [place] [phone] Vitamin D deficiency, unspecified; Essential (primary) hypertension [...] * (ABNORMAL) Magnesium (06/06/2024 8:50 AM EST) [facility] Magnesium 1.6(L) 1.9 - 2.6 mg/dL LAB CHEMISTRY METHOD 06/06/2024 4:25 PM EST [facility] Blood Venous blood specimen / Unknown Venipuncture / Unknown 06/06/2024 8:50 AM EST 06/06/2024 11:43 AM EST Lauren Garcia MD LAB BLOOD ORDERABLES Fin al Result Performing Organization Address City/[facility]/ZIP Co de Phone Number [facility] [address] [place] [address], * Folate (06/06/2024 8:50 AM EST) [facility] Folate 8.9 2.8 - 17.0 ng/ml LAB CHEMISTRY METHOD 06/06/2024 4:44 PM EST [facility] Blood Venous blood specimen / Unknown Venipuncture / Unknown 06/06/2024 8:50 AM EST 06/06/2024 11:43 AM EST Lauren Garcia MD LAB BLOOD ORDERABLES Fin al Result [facility] [address] [place] [address], * Vitamin B12 (06/06/2024 8:50 AM EST) [facility] Vitamin B-12 678 250 - 900 pcg/mL LAB CHEMISTRY METHOD 06/06/2024 4:44 PM EST [facility] Blood Venous blood specimen / Unknown Venipuncture / Unknown 06/06/2024 8:50 AM EST 06/06/2024 11:43 AM EST Lauren Garcia MD LAB BLOOD ORDERABLES Fin al Result Performing Organization Address [facility]/ZIP Co de Phone Number [facility] [address] [place] [address], [place] [phone] * Vitamin D 25 hydroxy (06/06/2024 8:50 AM EST) Pathologist [facility] Vit D, 25-Hydroxy 36.0 30.0 - 80.0 ng/mL LAB CHEMISTRY METHOD 06/06/2024 4:22 PM [facility] Blood Venous blood specimen / Unknown Venipuncture / Unknown 06/06/2024 8:50 AM EST 06/06/2024 11:43 AM EST Lauren Garcia MD LAB BLOOD ORDERABLES Fin al Result Performing Organization Address [facility] Co de Phone Number [facility] [address] [place] [address], [place] [phone] * (ABNORMAL) Comprehensive metabolic panel (06/06/2024 8:50 AM EST) [facility] Sodium 138 133 - 145 mmol/L LAB [...] al Result [facility] [address] [place] [address], * (ABNORMAL) Complete blood count (06/06/2024 8:50 AM EST) [facility] WBC 8.2 4.8 - 10.8 K/mcL LAB [...] al Result [facility] [address] [place] [address], documented in this encounter Visit Diagnoses Diagnosis Vitamin D deficiency, unspecified Essential (primary) hypertension Unspecified essential hypertension documented in this encounter Additional Health Concerns Infection Onset Date Last Indicated Resolved Time VRE 05/08/2024 05/08/2024 documented as of this encounter Care Teams Shotblaster Relationship Specialty Start Date End Date Lauren Garcia MD [address] [place] [id number] PCP - General Family Medicine 04/15/24 documented as of this encounter
--- OUTSIDE RECORDS SUMMARY | 2025-02-17 11:00 | XMS_ITS | Encounter Summary ---
Author Organization [facility] Address [address] [place] [address] Care Team Providers Care National Park Ranger Name Role Phone Lauren Garcia MD Primary Care Provider + Encounter Details Date Type Department Care Team (Late st Contact Info) Description 05/13/2024 Lab Requisition [facility] - Main Lab [address] [facility] [place] [address] Lauren Garcia MD [address] [phone] Chronic kidney disease, unspecified; Essential (primary) hypertension [...] mmol/L LAB CHEMISTRY METHOD 05/16/2024 1:28 PM [facility] Anion Gap 8 3 - 11 LAB CHEMISTRY METHOD 05/16/2024 1:28 PM [facility] Glucose 83 70 - 100 mg/dL LAB CHEMISTRY METHOD 05/16/2024 1:28 PM [facility] BUN 24 5 - 25 mg/dL LAB CHEMISTRY METHOD 05/16/2024 1:28 PM [facility] Creatinine 1.17(H) 0.50 - 1.10 mg/dL LAB CHEMISTRY METHOD 05/16/2024 1:28 PM [facility] eGFR 45(L) >=60 mL/min/1. 73m2 LAB CHEMISTRY METHOD 05/16/2024 1:28 PM [facility] Comment:Calculation based on the Chronic Kidney Disease Epidemiology Collaboration (CKD-EPI) equation refit without adjustment for race. BUN/Creatinine Ratio 20.5 LAB CHEMISTRY METHOD 05/16/2024 1:28 PM [facility] Calcium 9.8 8.5 - 10.5 mg/dL LAB CHEMISTRY METHOD 05/16/2024 1:28 PM [facility] Blood Venous blood specimen / Unknown Venipuncture / Unknown 05/16/2024 6:18 AM EST 05/16/2024 10:47 AM EST us Lauren Garcia MD LAB BLOOD ORDERABLES Fin al Result [facility] [address] [place] [address], * (ABNORMAL) Complete blood count (05/16/2024 6:18 AM EST) WBC 6.2 4.8 - 10.8 K[facility] 05/16/2024 1:43 PM [facility] RBC 4.00 3.80 - 4.80 M/mcL LAB HEMETOLOGY METHOD 05/16/2024 1:43 PM [facility] Hemoglobin 10.0(L) 11.5 - 16.0 g/dL LAB HEMETOLOGY METHOD 05/16/2024 1:43 PM [facility] Hematocrit 34.6(L) 35.0 - 47.0 % LAB HEMETOLOGY METHOD 05/16/2024 1:43 PM [facility] MCV 87.6 79.0 - 98.0 FL LAB HEMETOLOGY METHOD 05/16/2024 1:43 PM [facility] MCH 25.3(L) 27.0 - 32.0 pcg LAB HEMETOLOGY METHOD 05/16/2024 1:43 PM [facility] MCHC 28.9(L) 32.0 - 37.0 g/dL LAB HEMETOLOGY METHOD 05/16/2024 1:43 PM [facility] RDW 14.5 11.0 - 15.0 % LAB HEMETOLOGY METHOD 05/16/2024 1:43 PM [facility] Platelets 212 130 - 400 K/mcL LAB HEMETOLOGY METHOD 05/16/2024 1:43 PM [facility] MPV 12.0(H) 7.0 - 11.0 FL LAB HEMETOLOGY METHOD 05/16/2024 1:43 PM [facility] NRBC 0.0 <1.0 % LAB HEMETOLOGY METHOD 05/16/2024 1:43 PM [facility] NRBC Absolute 0.00 <0.10 K/mcL LAB HEMETOLOGY METHOD 05/16/2024 1:43 PM [facility] Blood Venous blood specimen / Unknown Venipuncture / Unknown 05/16/2024 6:18 AM EST 05/16/2024 10:47 AM EST us Lauren Garcia MD LAB BLOOD ORDERABLES Fin al Result [facility] [address] [place] [address], documented in this encounter Visit Diagnoses Diagnosis Chronic kidney disease, unspecified Essential (primary) hypertension Unspecified essential hypertension documented in this encounter Additional Health Concerns Infection Onset Date Last Indicated Resolved Time VRE 05/08/2024 05/08/2024 documented as of this encounter Care Teams National Park Ranger Relationship Specialty Start Date End Date Lauren Garcia MD [address] [address] PCP - General Family Medicine 04/15/24 documented as of this encounter
--- OUTSIDE RECORDS SUMMARY | 2025-02-17 11:00 | XMS_ITS | Encounter Summary ---
Author Organization [facility] Address [address] [place] [address] Care Team Providers Care Cone Machine Feeder Name Role Phone Lauren Garcia MD Primary Care Provider + Encounter Details Date Type Department Care Team (Late st Contact Info) Description 05/23/2024 Lab Requisition [facility] - Main Lab 299 [facility] [place] [address] Lauren Garcia MD [address] [phone] Anemia, unspecified Social History Tobacco Use Types [...] LAB CHEMISTRY METHOD 05/23/2024 2:24 PM EST [facility] Potassium 4.0 3.5 - 5.5 mmol/L LAB CHEMISTRY METHOD 05/23/2024 2:24 PM EST [facility] Chloride 108 96 - 110 mmol/L LAB CHEMISTRY METHOD 05/23/2024 2:24 PM [facility] CO2 25 21 - 32 mmol/L LAB CHEMISTRY METHOD 05/23/2024 2:24 PM [facility] Anion Gap 7 3 - 11 LAB CHEMISTRY METHOD 05/23/2024 2:24 PM [facility] Glucose 79 70 - 100 mg/dL LAB CHEMISTRY METHOD 05/23/2024 2:24 PM [facility] BUN 20 5 - 25 mg/dL LAB CHEMISTRY METHOD 05/23/2024 2:24 PM [facility] Creatinine 0.96 0.50 - 1.10 mg/dL LAB CHEMISTRY METHOD 05/23/2024 2:24 PM [facility] eGFR 57(L) >=60 mL/min/1. 73m2 LAB CHEMISTRY METHOD 05/23/2024 2:24 PM [facility] Comment:Calculation based on the Chronic Kidney Disease Epidemiology Collaboration (CKD-EPI) equation refit without adjustment for race. BUN/Creatinine Ratio 20.8 LAB CHEMISTRY METHOD 05/23/2024 2:24 PM [facility] Calcium 9.6 8.5 - 10.5 mg/dL LAB CHEMISTRY METHOD 05/23/2024 2:24 PM [facility] Blood Venous blood specimen / Unknown Venipuncture / Unknown 05/23/2024 7:02 AM EST 05/23/2024 12:18 PM EST us Lauren Garcia MD LAB BLOOD ORDERABLES Fin al Result [facility] [address] [place] [address], * (ABNORMAL) Complete blood count (05/23/2024 7:02 AM EST) WBC 5.6 4.8 - 10.8 K/[facility] LAB HEMETOLOGY METHOD 05/23/2024 1:39 PM [facility] RBC 3.80 3.80 - 4.80 M/mcL LAB HEMETOLOGY METHOD 05/23/2024 1:39 PM [facility] Hemoglobin 9.8(L) 11.5 - 16.0 g/dL LAB HEMETOLOGY METHOD 05/23/2024 1:39 PM [facility] Hematocrit 33.7(L) 35.0 - 47.0 % LAB HEMETOLOGY METHOD 05/23/2024 1:39 PM [facility] MCV 87.8 79.0 - 98.0 FL LAB HEMETOLOGY METHOD 05/23/2024 1:39 PM [facility] MCH 25.5(L) 27.0 - 32.0 pcg LAB HEMETOLOGY METHOD 05/23/2024 1:39 PM [facility] MCHC 29.1(L) 32.0 - 37.0 g/dL LAB HEMETOLOGY METHOD 05/23/2024 1:39 PM [facility] RDW 14.9 11.0 - 15.0 % LAB HEMETOLOGY METHOD 05/23/2024 1:39 PM [facility] Platelets 158 130 - 400 K/mcL LAB HEMETOLOGY METHOD 05/23/2024 1:39 PM [facility] MPV 11.0 7.0 - 11.0 FL LAB HEMETOLOGY METHOD 05/23/2024 1:39 PM [facility] NRBC 0.0 <1.0 % LAB HEMETOLOGY METHOD 05/23/2024 1:39 PM [facility] NRBC Absolute 0.00 <0.10 K/mcL LAB HEMETOLOGY METHOD 05/23/2024 1:39 PM [facility] Blood Venous blood specimen / Unknown Venipuncture / Unknown 05/23/2024 7:02 AM EST 05/23/2024 12:18 PM EST Lauren Garcia MD LAB BLOOD ORDERABLES Fin al Result [facility] ([facility]) [facility] [address] [place] [address], documented in this encounter Visit Diagnoses Diagnosis Anemia, unspecified documented in this encounter Additional Health Concerns Infection Onset Date Last Indicated Resolved Time VRE 05/08/2024 05/08/2024 documented as of this encounter Care Teams Cone Machine Feeder Relationship Specialty Start Date End Date Lauren Garcia MD [address] [address] PCP - General Family Medicine 04/15/24 documented as of this encounter
--- OUTSIDE RECORDS SUMMARY | 2025-02-17 11:00 | XMS_ITS | Patient Health Record ---
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) Active confirmed Problem PlantarFlexion o f metatarsal of left foot (M21.6X2) Active confirmed Problem Localized, primary osteoarthritis of the ankle and/or foot (769419580) Arthritis of joint of lesser toe, right (M19.071) Active confirmed Plan Of Treatment Pending Test Test Name Order Date X ray : Foot, right 2V 04/23/2012 X ray : Foot, right 2V 05/28/2012 X ray : Foot, left 3V 03/16/2012 X ray : Foot, right 3V 03/16/2012 46911-KWAHLSI NAIL, 6 OR MORE 03/23/2020 [id number] NAIL, 6 OR MORE 09/14/2020 46215-UBTHHYB NAIL, 6 OR MORE 12/14/2020 24557-LEIHZYO NAIL, 6 OR MORE 03/26/2021 33407-RBFOCTZ NAIL, 6 OR MORE 08/21/2021 88993-NJMETHL NAIL, 6 OR MORE 11/22/2021 12607-TKSUDLZ NAIL, 6 OR MORE 05/30/2022 83212-PVICQYQ NAIL, 6 OR MORE 09/02/2022 39258-LCYSYNH NAIL, 6 OR MORE 12/03/2022 54168-GDRBSLV NAIL, 6 OR MORE 03/04/2023 88128-PYDOZAS NAIL, 6 OR MORE 06/09/2023 37988-Zehgpkns Plate 12/03/2022 96475-Kxpqwctn Plate 05/30/2022 77079-Fywjilzt Plate 09/14/2020 38644-Xfsbqies Plate 08/21/2021 57052-Cmmhlqsf Plate 03/26/2021 88343-Gfhlkerm Plate 12/14/2020 12422-Mjudsjml Plate 03/23/2020 19503-Kgkvpyuy Plate Each Additional 53980-Jbqyrras Plate Each Additional Insurance Providers Payer Name Payer Address Payer Phone Subscriber Number Group Number Insured Name Patient Relationship to Insured Coverage Start Date Coverage End Date Medicare National [employer] [address] [place] [address] [id number] Lashaun Turpin Self - patient is the insured [facility] [address] RANJAN SOTO [id number] Lashaun Turpin Self - patient is the insured Medical (General) History Medical History History ICD Code Arthritis back, hip, knee pain broken bones cholesterol gall bladder problems Hiatal hernia high blood pressure sciatica thyroid disorder chicken pox measles mumps CAD (Cholesterol) Nerve disease Reflux Surgical History Surgery Date(Month/Year)
--- OUTSIDE RECORDS SUMMARY | 2025-02-17 11:00 | XMS_ITS | Encounter Summary ---
Author Organization [facility] Address [address] [place] [address] Care Team Providers Care Outcomes Specialist Name Role Phone Lauren Garcia MD Primary Care Provider + Encounter Details Date Type Department Care Team (Late st Contact Info) Description 05/31/2024 Lab Requisition [facility] - Main Lab 299 [facility] [place] [address] Lauren Garcia MD 819 [facility] 1 [place], [place] [phone] Urinary tract infection, site not specified; Altered [...] reflex microscopic (05/30/2024 12:00 PM EST) Specific [place] Urine 1.019 1.003 - 1.030 LAB URINALYSIS - AUTOMATED METHOD 05/31/2024 10:47 AM [facility] pH, Urine 5.5 5.0 - 8.0 pH LAB URINALYSIS - AUTOMATED METHOD 05/31/2024 10:47 AM [facility] Leukocytes, Urine Large(A) Negative LAB URINALYSIS - AUTOMATED METHOD 05/31/2024 10:47 AM [facility] Nitrite, Urine Negative Negative LAB URINALYSIS - AUTOMATED METHOD 05/31/2024 10:47 AM [facility] Protein, Urine Trace <=Trace mg/dL LAB URINALYSIS - AUTOMATED METHOD 05/31/2024 10:47 AM [facility] Glucose, Urine Negative Negative mg/dL LAB URINALYSIS - AUTOMATED METHOD 05/31/2024 10:47 AM [facility] Ketones, Urine Negative Negative mg/dL LAB URINALYSIS - AUTOMATED METHOD 05/31/2024 10:47 AM [facility] Urobilinogen , Urine 1.0 0.2 - 1.0 mg/dL LAB URINALYSIS - AUTOMATED METHOD 05/31/2024 10:47 AM [facility] Bilirubin, Urine Negative Negative LAB URINALYSIS - AUTOMATED METHOD 05/31/2024 10:47 AM [facility] Blood, Urine Trace(A) Negative LAB URINALYSIS - AUTOMATED METHOD 05/31/2024 10:47 AM [facility] RBC, Urine 4.0 0 - 4 /HPF LAB URINALYSIS - AUTOMATED METHOD 05/31/2024 10:47 AM [facility] WBC, Urine 651.5(H) 0 - 4 /HPF LAB URINALYSIS - AUTOMATED METHOD 05/31/2024 10:47 AM [facility] Squamous Epithelial, Urine 74(H) 0 - 60 /LPF LAB URINALYSIS - AUTOMATED METHOD 05/31/2024 10:47 AM [facility] Crystals, Urine Light Calcium Oxalate /LPF 05/31/2024 10:47 AM EST [facility] Bacteria, Urine Many(A) Negative /HPF LAB URINALYSIS - AUTOMATED METHOD 05/31/2024 10:47 AM [facility] Hyaline Casts, Urine 3.0 0 - 3 /LPF LAB URINALYSIS - AUTOMATED METHOD 05/31/2024 10:47 AM [facility] Yeast, Urine Present(A) None /HPF 05/31/2024 10:47 AM [facility] Urine Urine specimen obtained by clean catch procedure / Unknown Non-blood Collection / Unknown 05/30/2024 12:00 PM EST 05/31/2024 9:02 AM EST us Lauren Garcia MD LAB URINE ORDERABLES Fin al Result [facility] [address] [place] [address], * (ABNORMAL) Culture urine (05/30/2024 12:00 PM EST) Culture, Urine >100,000 CFU/mL Escherichia coli(A) JULISSA 06/02/2024 8:13 AM [facility] Urine Urine specimen obtained by clean catch procedure / Unknown Non-blood Collection / Unknown 05/30/2024 12:00 PM EST 05/31/2024 9:02 AM EST [facility] - 06/02/2024 8:13 AM [...] MICROBIOLOGY - GENER AL ORDERABLES Final Result [facility] ([facility]) [facility] [address] [place] [address], documented in this encounter Visit Diagnoses Diagnosis Urinary tract infection, site not specified Altered mental status, unspecified documented in this encounter Additional Health Concerns Infection Onset Date Last Indicated Resolved Time VRE 05/08/2024 05/08/2024 documented as of this encounter Care Teams Outcomes Specialist Relationship Specialty Start Date End Date Lauren Garcia MD [address] [place] [address] PCP - General Family Medicine 04/15/24 documented as of this encounter
--- OUTSIDE RECORDS SUMMARY | 2025-02-17 11:00 | XMS_ITS | Encounter Summary ---
Author Organization [employer] Address [address] [place] [address] Care Team Providers Care Healthcare Economics Consultant Name Role Phone Lauren Garcia MD Primary Care Provider + Encounter Details Date Type Department Care Team (Late st Contact Info) Description 04/15/2024 Lab Requisition [facility] - Main Lab 299 [facility] [place] [address] Lauren Garcia MD 819 [facility] 1 [place], [place] [phone] Vitamin D deficiency, unspecified; Pathological fracture, right [...] LAB CHEMISTRY METHOD 04/15/2024 10:58 AM EST [facility] Blood Venous blood specimen / Unknown Venipuncture / Unknown 04/15/2024 7:06 AM EST 04/15/2024 8:53 AM EST Lauren Garcia MD LAB BLOOD ORDERABLES Fin al Result [facility] [address] [place] [address], * Vitamin B12 (04/15/2024 7:06 AM EST) Vitamin B-12 315 250 - 900 pcg/mL LAB CHEMISTRY METHOD 04/15/2024 11:36 AM EST [facility] Blood Venous blood specimen / Unknown Venipuncture / Unknown 04/15/2024 7:06 AM EST 04/15/2024 8:53 AM EST Lauren Garcia MD LAB BLOOD ORDERABLES Fin al Result Performing Organization Address City/[facility]/ZIP Co de Phone Number [facility] [address] [place] [address], * (ABNORMAL) Magnesium (04/15/2024 7:06 AM EST) Pathologist [facility] Magnesium 1.8(L) 1.9 - 2.6 mg/dL LAB CHEMISTRY METHOD 04/15/2024 10:58 AM EST [facility] Blood Venous blood specimen / Unknown Venipuncture / Unknown 04/15/2024 7:06 AM EST 04/15/2024 8:53 AM EST Lauren Garcia MD LAB BLOOD ORDERABLES Fin al Result Performing Organization Address [facility]/ZIP Co de Phone Number [facility] [address] [place] [address], * Folate (04/15/2024 7:06 AM EST) Pathologist [facility] Folate 12.3 2.8 - 17.0 ng/ml LAB CHEMISTRY METHOD 04/15/2024 11:36 AM EST [facility] Blood Venous blood specimen / Unknown Venipuncture / Unknown 04/15/2024 7:06 AM EST 04/15/2024 8:53 AM EST Lauren Garcia MD LAB BLOOD ORDERABLES Fin al Result Performing Organization Address City/[facility]/ZIP Co de Phone Number [facility] [address] [place] [address], * Thyroid stimulating hormone (04/15/2024 7:06 AM EST) TSH 0.65 0.40 - 4.00 mcIU/mL LAB CHEMISTRY METHOD 04/15/2024 10:58 AM EST [facility] Blood Venous blood specimen / Unknown Venipuncture / Unknown 04/15/2024 7:06 AM EST 04/15/2024 8:53 AM EST us Lauren Garcia MD LAB BLOOD ORDERABLES Fin al Result [facility] [address] [place] [address], * (ABNORMAL) Basic metabolic panel (04/15/2024 7:06 AM EST) Sodium 143 133 - 145 mmol/L LAB CHEMISTRY METHOD 04/15/2024 11:36 AM [facility] Potassium 4.3 3.5 - 5.5 mmol/L LAB CHEMISTRY METHOD 04/15/2024 11:36 AM [facility] Chloride 111(H) 96 - 110 mmol/L LAB CHEMISTRY METHOD 04/15/2024 11:36 AM [facility] CO2 22 21 - 32 mmol/L LAB CHEMISTRY METHOD 04/15/2024 11:36 AM [facility] Anion Gap 10 3 - 11 LAB CHEMISTRY METHOD 04/15/2024 11:36 AM [facility] Glucose 102(H) 70 - 100 mg/dL LAB CHEMISTRY METHOD 04/15/2024 11:36 AM [facility] BUN 35(H) 5 - 25 mg/dL LAB CHEMISTRY METHOD 04/15/2024 11:36 AM [facility] Creatinine 1.10 0.50 - 1.10 mg/dL LAB CHEMISTRY METHOD 04/15/2024 11:36 AM [facility] eGFR 49(L) >=60 mL/min/1. 73m2 LAB CHEMISTRY METHOD 04/15/2024 11:36 AM [facility] Comment:Calculation based on the Chronic Kidney Disease Epidemiology Collaboration (CKD-EPI) equation refit without adjustment for race. BUN/Creatinine Ratio 31.8 LAB CHEMISTRY METHOD 04/15/2024 11:36 AM EST [facility] Calcium 9.9 8.5 - 10.5 mg/dL LAB CHEMISTRY METHOD 04/15/2024 11:36 AM [facility] Blood Venous blood specimen / Unknown Venipuncture / Unknown 04/15/2024 7:06 AM EST 04/15/2024 8:53 AM EST us Lauren Garcia MD LAB BLOOD ORDERABLES Fin al Result [facility] [address] [place] [address], * (ABNORMAL) Complete blood count (04/15/2024 7:06 AM EST) WBC 6.8 4.8 - 10.8 K/mcL LAB HEMETOLOGY METHOD 04/15/2024 10:32 AM [facility] RBC 3.80 3.80 - 4.80 M/[facility] LAB HEMETOLOGY METHOD 04/15/2024 10:32 AM [facility] Hemoglobin 10.0(L) 11.5 - 16.0 g/dL LAB HEMETOLOGY METHOD 04/15/2024 10:32 AM [facility] Hematocrit 32.7(L) 35.0 - 47.0 % LAB HEMETOLOGY METHOD 04/15/2024 10:32 AM [facility] MCV 86.5 79.0 - 98.0 FL LAB HEMETOLOGY METHOD 04/15/2024 10:32 AM [facility] MCH 26.5(L) 27.0 - 32.0 pcg LAB HEMETOLOGY METHOD 04/15/2024 10:32 AM [facility] MCHC 30.6(L) 32.0 - 37.0 g/dL LAB HEMETOLOGY METHOD 04/15/2024 10:32 AM EST [facility] RDW 14.4 11.0 - 15.0 % LAB HEMETOLOGY METHOD 04/15/2024 10:32 AM EST [facility] Platelets 187 130 - 400 K/mcL LAB HEMETOLOGY METHOD 04/15/2024 10:32 AM [facility] MPV 12.2(H) 7.0 - 11.0 FL LAB HEMETOLOGY METHOD 04/15/2024 10:32 AM EST [facility] NRBC 0.0 <1.0 % LAB HEMETOLOGY METHOD 04/15/2024 10:32 AM [facility] NRBC Absolute 0.00 <0.10 K/mcL LAB HEMETOLOGY METHOD 04/15/2024 10:32 AM [facility] Blood Venous blood specimen / Unknown Venipuncture / Unknown 04/15/2024 7:06 AM EST 04/15/2024 8:53 AM EST Lauren Garcia MD LAB BLOOD ORDERABLES Fin al Result [facility] [address] [place] [address], documented in this encounter Visit Diagnoses Diagnosis Vitamin D deficiency, unspecified Pathological fracture, right tibia, initial encounter for fracture Hypothyroidism, unspecified Essential (primary) hypertension Unspecified essential hypertension documented in this encounter Additional Health Concerns Infection Onset Date Last Indicated Resolved Time VRE 05/08/2024 05/08/2024 documented as of this encounter Care Teams Healthcare Economics Consultant Relationship Specialty Start Date End Date Lauren Garcia MD [address] [place] [id number] PCP - General Family Medicine 04/15/24 documented as of this encounter
--- OUTSIDE RECORDS SUMMARY | 2025-02-17 11:00 | XMS_ITS | Encounter Summary ---
Author Organization [facility] Address [address] [place] [address] Care Team Providers Care Group Director Experience Name Role Phone Lauren Garcia MD Primary Care Provider + Encounter Details Date Type Department Care Team (Late st Contact Info) Description 06/23/2024 Lab Requisition [facility] - Main Lab 299 [facility] [place] [address] Lauren Garcia MD [address] [phone] Chronic kidney disease, unspecified Social History Tobacco [...] AM EST) WBC 5.1 4.8 - 10.8 K/[facility] LAB HEMETOLOGY METHOD 06/23/2024 11:34 AM EST [facility] LAB RBC 4.10 3.80 - 4.80 M/[facility] LAB HEMETOLOGY METHOD 06/23/2024 11:34 AM EST [facility] Hemoglobin 10.6(L) 11.5 - 16.0 g/dL LAB HEMETOLOGY METHOD 06/23/2024 11:34 AM EST [facility] LAB Hematocrit 36.1 35.0 - 47.0 % LAB HEMETOLOGY METHOD 06/23/2024 11:34 AM [facility] LAB MCV 87.8 79.0 - 98.0 FL LAB HEMETOLOGY METHOD 06/23/2024 11:34 AM [facility] LAB MCH 25.8(L) 27.0 - 32.0 pcg LAB HEMETOLOGY METHOD 06/23/2024 11:34 AM [facility] LAB MCHC 29.4(L) 32.0 - 37.0 g/dL LAB HEMETOLOGY METHOD 06/23/2024 11:34 AM [facility] LAB RDW 16.7(H) 11.0 - 15.0 % LAB HEMETOLOGY METHOD 06/23/2024 11:34 AM [facility] LAB Platelets 267 130 - 400 K/mcL LAB HEMETOLOGY METHOD 06/23/2024 11:34 AM [facility] LAB MPV 12.4(H) 7.0 - 11.0 FL LAB HEMETOLOGY METHOD 06/23/2024 11:34 AM [facility] NRBC 0.0 <1.0 % LAB HEMETOLOGY METHOD 06/23/2024 11:34 AM [facility] LAB NRBC Absolute 0.00 <0.10 K/mcL LAB HEMETOLOGY METHOD 06/23/2024 11:34 AM [facility] Blood Venous blood specimen / Unknown Venipuncture / Unknown 06/23/2024 8:46 AM EST 06/23/2024 10:45 AM EST us Lauren Garcia MD LAB BLOOD ORDERABLES Fin al Result [facility] [address] [place] [address], documented in this encounter Visit Diagnoses Diagnosis Chronic kidney disease, unspecified documented in this encounter Additional Health Concerns Infection Onset Date Last Indicated Resolved Time VRE 05/08/2024 05/08/2024 documented as of this encounter Care Teams Group Director Experience Relationship Specialty Start Date End Date Lauren Garcia MD [address] [address] PCP - General Family Medicine 04/15/24 documented as of this encounter
--- OUTSIDE RECORDS SUMMARY | 2025-02-17 11:00 | XMS_ITS | Encounter Summary ---
Author Organization [facility] Address [address] [place] [address] Care Team Providers Care Painter Decorator Name Role Phone Lauren Garcia MD Primary Care Provider + Encounter Details Date Type Department Care Team (Late st Contact Info) Description 06/19/2024 Lab Requisition [facility] - Main Lab 299 [facility] [place] [address] Lauren Garcia MD [address] [phone] Essential (primary) hypertension Social History Tobacco Use [...] LAB CHEMISTRY METHOD 06/20/2024 11:15 AM EST [facility] Potassium 4.0 3.5 - 5.5 mmol/L LAB CHEMISTRY METHOD 06/20/2024 11:15 AM EST [facility] Chloride 106 96 - 110 mmol/L LAB CHEMISTRY METHOD 06/20/2024 11:15 AM [facility] CO2 27 21 - 32 mmol/L LAB CHEMISTRY METHOD 06/20/2024 11:15 AM [facility] Anion Gap 6 3 - 11 LAB CHEMISTRY METHOD 06/20/2024 11:15 AM [facility] Glucose 83 70 - 100 mg/dL LAB CHEMISTRY METHOD 06/20/2024 11:15 AM [facility] BUN 20 5 - 25 mg/dL LAB CHEMISTRY METHOD 06/20/2024 11:15 AM [facility] Creatinine 1.05 0.50 - 1.10 mg/dL LAB CHEMISTRY METHOD 06/20/2024 11:15 AM [facility] LAB eGFR 52(L) >=60 mL/min/1. 73m2 LAB CHEMISTRY METHOD 06/20/2024 11:15 AM [facility] LAB Comment:Calculation based on the Chronic Kidney Disease Epidemiology Collaboration (CKD-EPI) equation refit without adjustment for race. BUN/Creatinine Ratio 19.0 LAB CHEMISTRY METHOD 06/20/2024 11:15 AM [facility] Calcium 9.5 8.5 - 10.5 mg/dL LAB CHEMISTRY METHOD 06/20/2024 11:15 AM [facility] Blood Venous blood specimen / Unknown Venipuncture / Unknown 06/20/2024 6:51 AM EST 06/20/2024 10:15 AM EST us Lauren Garcia MD LAB BLOOD ORDERABLES Fin al Result [facility] [address] [place] [address], * (ABNORMAL) Complete blood count (06/20/2024 6:51 AM EST) WBC 7.0 4.8 - 10.8 K/mcL LAB HEMETOLOGY METHOD 06/20/2024 10:51 AM [facility] RBC 3.80 3.80 - 4.80 M/mcL LAB HEMETOLOGY METHOD 06/20/2024 10:51 AM [facility] Hemoglobin 9.8(L) 11.5 - 16.0 g/dL LAB HEMETOLOGY METHOD 06/20/2024 10:51 AM [facility] LAB Hematocrit 33.0(L) 35.0 - 47.0 % LAB HEMETOLOGY METHOD 06/20/2024 10:51 AM [facility] LAB MCV 86.4 79.0 - 98.0 FL LAB HEMETOLOGY METHOD 06/20/2024 10:51 AM [facility] LAB MCH 25.7(L) 27.0 - 32.0 pcg LAB HEMETOLOGY METHOD 06/20/2024 10:51 AM [facility] LAB MCHC 29.7(L) 32.0 - 37.0 g/dL LAB HEMETOLOGY METHOD 06/20/2024 10:51 AM [facility] LAB RDW 16.4(H) 11.0 - 15.0 % LAB HEMETOLOGY METHOD 06/20/2024 10:51 AM [facility] LAB Platelets 211 130 - 400 K/mcL LAB HEMETOLOGY METHOD 06/20/2024 10:51 AM [facility] LAB MPV 12.3(H) 7.0 - 11.0 FL LAB HEMETOLOGY METHOD 06/20/2024 10:51 AM [facility] LAB NRBC 0.0 <1.0 % LAB HEMETOLOGY METHOD 06/20/2024 10:51 AM [facility] LAB NRBC Absolute 0.00 <0.10 K/mcL LAB HEMETOLOGY METHOD 06/20/2024 10:51 AM [facility] Blood Venous blood specimen / Unknown Venipuncture / Unknown 06/20/2024 6:51 AM EST 06/20/2024 10:15 AM EST us Lauren Garcia MD LAB BLOOD ORDERABLES Fin al Result [facility] ([facility]) [facility] [address] [place] [address], documented in this encounter Visit Diagnoses Diagnosis Essential (primary) hypertension Unspecified essential hypertension documented in this encounter Additional Health Concerns Infection Onset Date Last Indicated Resolved Time 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
--- OUTSIDE RECORDS SUMMARY | 2025-02-17 11:00 | XMS_ITS | Encounter Summary ---
Author Organization [facility] Address [address] [place] [address] Care Team Providers Care Cafeteria Operator Name Role Phone Lauren Garcia MD Primary Care Provider + Encounter Details Date Type Department Care Team (Late st Contact Info) Description 06/11/2024 Lab Requisition [facility] - Main Lab 299 [facility] [place] [address] Lauren Garcia MD [address] [phone] Essential (primary) hypertension Social History Tobacco Use [...] LAB CHEMISTRY METHOD 06/13/2024 11:30 AM EST [facility] Potassium 3.9 3.5 - 5.5 mmol/L LAB CHEMISTRY METHOD 06/13/2024 11:30 AM EST [facility] Chloride 104 96 - 110 mmol/L LAB CHEMISTRY METHOD 06/13/2024 11:30 AM [facility] CO2 28 21 - 32 mmol/L LAB CHEMISTRY METHOD 06/13/2024 11:30 AM [facility] Anion Gap 6 3 - 11 LAB CHEMISTRY METHOD 06/13/2024 11:30 AM [facility] Glucose 72 70 - 100 mg/dL LAB CHEMISTRY METHOD 06/13/2024 11:30 AM [facility] BUN 45(H) 5 - 25 mg/dL LAB CHEMISTRY METHOD 06/13/2024 11:30 AM [facility] Creatinine 1.32(H) 0.50 - 1.10 mg/dL LAB CHEMISTRY METHOD 06/13/2024 11:30 AM [facility] eGFR 39(L) >=60 mL/min/1. 73m2 LAB CHEMISTRY METHOD 06/13/2024 11:30 AM [facility] Comment:Calculation based on the Chronic Kidney Disease Epidemiology Collaboration (CKD-EPI) equation refit without adjustment for race. BUN/Creatinine Ratio 34.1 LAB CHEMISTRY METHOD 06/13/2024 11:30 AM [facility] Calcium 9.5 8.5 - 10.5 mg/dL LAB CHEMISTRY METHOD 06/13/2024 11:30 AM [facility] Blood Venous blood specimen / Unknown Venipuncture / Unknown 06/13/2024 5:32 AM EST 06/13/2024 10:14 AM EST us Lauren Garcia MD LAB BLOOD ORDERABLES Fin al Result [facility] [address] [place] [address], * (ABNORMAL) Complete blood count (06/13/2024 5:32 AM EST) WBC 8.2 4.8 - 10.8 K/mcL LAB HEMETOLOGY METHOD 06/13/2024 10:40 AM [facility] RBC 3.70(L) 3.80 - 4.80 M/mcL LAB HEMETOLOGY METHOD 06/13/2024 10:40 AM [facility] Hemoglobin 9.5(L) 11.5 - 16.0 g/dL LAB HEMETOLOGY METHOD 06/13/2024 10:40 AM [facility] Hematocrit 31.9(L) 35.0 - 47.0 % LAB HEMETOLOGY METHOD 06/13/2024 10:40 AM [facility] MCV 86.9 79.0 - 98.0 FL LAB HEMETOLOGY METHOD 06/13/2024 10:40 AM [facility] MCH 25.9(L) 27.0 - 32.0 pcg LAB HEMETOLOGY METHOD 06/13/2024 10:40 AM [facility] MCHC 29.8(L) 32.0 - 37.0 g/dL LAB HEMETOLOGY METHOD 06/13/2024 10:40 AM [facility] RDW 16.6(H) 11.0 - 15.0 % LAB HEMETOLOGY METHOD 06/13/2024 10:40 AM [facility] Platelets 168 130 - 400 K/mcL LAB HEMETOLOGY METHOD 06/13/2024 10:40 AM [facility] MPV 12.2(H) 7.0 - 11.0 FL LAB HEMETOLOGY METHOD 06/13/2024 10:40 AM [facility] NRBC 0.0 <1.0 % LAB HEMETOLOGY METHOD 06/13/2024 10:40 AM [facility] NRBC Absolute 0.00 <0.10 K/mcL LAB HEMETOLOGY METHOD 06/13/2024 10:40 AM [facility] Blood Venous blood specimen / Unknown Venipuncture / Unknown 06/13/2024 5:32 AM EST 06/13/2024 10:14 AM EST Lauren Garcia MD LAB BLOOD ORDERABLES Fin al Result [facility] [address] [place] [address], documented in this encounter Visit Diagnoses Diagnosis Essential (primary) hypertension Unspecified essential hypertension documented in this encounter Additional Health Concerns Infection Onset Date Last Indicated Resolved Time 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
--- OUTSIDE RECORDS SUMMARY | 2025-02-17 11:01 | XMS_ITS | Encounter Summary ---
Author Organization [facility] Address [address] [place] [address] Care Team Providers Care Structural Steel Worker Name Role Phone Lauren Garcia MD Primary Care Provider + Encounter Details Date Type Department Care Team (Late st Contact Info) Description 05/11/2024 Lab Requisition [facility] - Main Lab 299 [facility] [place] [address] Lauren Garcia MD 819 [facility] [place], [place] [phone] Chronic kidney disease, unspecified; Essential (primary) hypertension; [...] al Result [facility] [address] [place] [address], * (ABNORMAL) Complete blood count (05/11/2024 6:33 AM EST) [facility] WBC 9.1 4.8 - 10.8 K/mcL LAB [...] LAB HEMETOLOGY METHOD 05/11/2024 9:52 AM EST [facility] Blood Venous blood specimen / Unknown Venipuncture / Unknown 05/11/2024 6:33 AM EST 05/11/2024 9:28 AM EST us Lauren Garcia MD LAB BLOOD ORDERABLES Fin al Result [facility] [address] [place] [address], documented in this encounter Visit Diagnoses Diagnosis Chronic kidney disease, unspecified Essential (primary) hypertension Unspecified essential hypertension Displaced comminuted fracture of shaft of right tibia, subsequent encounter for closed fracture with routine healing documented in this encounter Additional Health Concerns Infection Onset Date Last Indicated Resolved Time VRE 05/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
--- OUTSIDE RECORDS SUMMARY | 2025-02-17 11:01 | XMS_ITS | Encounter Summary ---
Author Organization [facility] Address [address] [place] [address] Care Team Providers Care Manager Of Engineering Name Role Phone Lauren Garcia MD Primary Care Provider + Encounter Details Date Type Department Care Team (Late st Contact Info) Description 05/09/[address] [facility] - Main Lab 299 [facility] [place] [address] Lauren Garcia MD 819 [facility] 1 [place], [place] [phone] Frequency of micturition Social History Tobacco Use [...] reflex microscopic (05/08/2024 8:00 PM EST) Specific [place] Urine 1.017 1.003 - 1.030 LAB URINALYSIS - AUTOMATED METHOD 05/09/2024 11:42 AM [facility] pH, Urine 5.5 5.0 - 8.0 pH LAB URINALYSIS - AUTOMATED METHOD 05/09/2024 11:42 AM [facility] Leukocytes, Urine Large(A) Negative LAB URINALYSIS - AUTOMATED METHOD 05/09/2024 11:42 AM [facility] Nitrite, Urine Negative Negative LAB URINALYSIS - AUTOMATED METHOD 05/09/2024 11:42 AM [facility] Protein, Urine 100(A) <=Trace mg/dL LAB URINALYSIS - AUTOMATED METHOD 05/09/2024 11:42 AM [facility] Glucose, Urine Negative Negative mg/dL LAB URINALYSIS - AUTOMATED METHOD 05/09/2024 11:42 AM [facility] Ketones, Urine Negative Negative mg/dL LAB URINALYSIS - AUTOMATED METHOD 05/09/2024 11:42 AM [facility] Urobilinogen, Urine 0.2 0.2 - 1.0 mg/dL LAB URINALYSIS - AUTOMATED METHOD 05/09/2024 11:42 AM [facility] Bilirubin, Urine Negative Negative LAB URINALYSIS - AUTOMATED METHOD 05/09/2024 11:42 AM [facility] Blood, Urine Trace(A) Negative LAB URINALYSIS - AUTOMATED METHOD 05/09/2024 11:42 AM [facility] RBC, Urine 5.9(H) 0 - 4 /HPF LAB URINALYSIS - AUTOMATED METHOD 05/09/2024 11:42 AM [facility] WBC, Urine 359.9(H) 0 - 4 /HPF LAB URINALYSIS - AUTOMATED METHOD 05/09/2024 11:42 AM [facility] Squamous Epithelial, Urine 4 0 - 60 /LPF LAB URINALYSIS - AUTOMATED METHOD 05/09/2024 11:[address] [facility] Bacteria, Urine Many(A) Negative /HPF LAB URINALYSIS - AUTOMATED METHOD 05/09/2024 11:[address] [facility] Hyaline Casts, Urine 0.4 0 - 3 /LPF LAB URINALYSIS - AUTOMATED METHOD 05/09/2024 11:[address] [facility] Urine Urine specimen from urethra / Unknown 05/08/2024 8:00 PM EST 05/09/2024 10:56 AM EST us Lauren Garcia MD LAB URINE ORDERABLES Fin al Result [facility] [address] [place] [address], * (ABNORMAL) Culture urine (05/08/2024 8:00 PM EST) Culture, Urine 10,000-49,000 CFU/mL Caryl tropicalis(A) JULISSA 05/13/2024 11:[address] [facility] Comment: The organism value for this result has been updated. These results have been appended to the previously preliminary verified report. Edited result: Previously reported as Yeast on 05/12/2024 at 0916 EST. 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) JULISSA 05/13/2024 11:[address] [facility] Comment: The organism value for this [...] MICROBIOLOGY - GENER AL ORDERABLES Final Result [facility] [address] [place] [address], [place] [phone] * (ABNORMAL) Urinalysis with reflex microscopic and culture (05/08/2024 8:00 PM EST) Specific [place] Urine 1.017 1.003 - 1.030 LAB URINALYSIS - AUTOMATED METHOD 05/09/2024 11:18 AM [facility] pH, Urine 5.5 5.0 - 8.0 pH LAB URINALYSIS - AUTOMATED METHOD 05/09/2024 11:18 AM [facility] Leukocytes, Urine Large(A) Negative LAB URINALYSIS - AUTOMATED METHOD 05/09/2024 11:18 AM [facility] Nitrite, Urine Negative Negative LAB URINALYSIS - AUTOMATED METHOD 05/09/2024 11:18 AM [facility] Protein, Urine 100(A) <=Trace mg/dL LAB URINALYSIS - AUTOMATED METHOD 05/09/2024 11:18 AM [facility] Glucose, Urine Negative Negative mg/dL LAB URINALYSIS - AUTOMATED METHOD 05/09/2024 11:18 AM [facility] Ketones, Urine Negative Negative mg/dL LAB URINALYSIS - AUTOMATED METHOD 05/09/2024 11:18 AM [facility] Urobilinogen, Urine 0.2 0.2 - 1.0 mg/dL LAB URINALYSIS - AUTOMATED METHOD 05/09/2024 11:18 AM [facility] Bilirubin, Urine Negative Negative LAB URINALYSIS - AUTOMATED METHOD 05/09/2024 11:18 AM [facility] Blood, Urine Trace(A) Negative LAB URINALYSIS - AUTOMATED METHOD 05/09/2024 11:18 AM [facility] RBC, Urine 5.9(H) 0 - 4 /HPF LAB URINALYSIS - AUTOMATED METHOD 05/09/2024 11:18 AM [facility] WBC, Urine 359.9(H) 0 - 4 /HPF LAB URINALYSIS - AUTOMATED METHOD 05/09/2024 11:18 AM [facility] Squamous Epithelial, Urine 4 0 - 60 /LPF LAB URINALYSIS - AUTOMATED METHOD 05/09/2024 11:18 AM [facility] Bacteria, Urine Many(A) Negative /HPF LAB URINALYSIS - AUTOMATED METHOD 05/09/2024 11:18 AM [facility] Hyaline Casts, Urine 0.4 0 - 3 /LPF LAB URINALYSIS - AUTOMATED METHOD 05/09/2024 11:18 AM [facility] Urine Urine specimen from urethra / Unknown 05/08/2024 8:00 PM EST 05/09/2024 10:56 AM EST us Lauren Garcia MD LAB URINE ORDERABLES Fin al Result [facility] [address] [place] [address], documented in this encounter Visit Diagnoses Diagnosis Frequency of micturition Urinary frequency documented in this encounter Additional Health Concerns Infection Onset Date Last Indicated Resolved Time VRE 05/08/2024 05/08/2024 documented as of this encounter Care Teams Manager Of Engineering Relationship Specialty Start Date End Date Lauren Garcia MD 9 [place] [address] PCP - General Family Medicine 04/15/24 documented as of this encounter
--- OUTSIDE RECORDS SUMMARY | 2025-02-17 11:01 | XMS_ITS | Clinical Summary ---
Author Organization [address] Address [address] [place] [phone] Phone Care Team Providers Care Tune Up Mechanic Name Role Phone Elder, Lauren Salvador MD [...] Last Indicated VRE 05/08/2024 05/08/2024 Insurance MEDICARE [facility] Care Teams Tune Up Mechanic Relationship Specialty Start Date End Date Lauren Garcia MD [address] [phone] PCP - General Family Medicine 04/15/24
--- OUTSIDE RECORDS SUMMARY | 2025-02-17 11:01 | XMS_ITS | Encounter Summary ---
Author Organization [facility] Address [address] [place] [address] Care Team Providers Care Director Of Research Center Name Role Phone Lauren Garcia MD Primary Care Provider + Encounter Details Date Type Department Care Team (Late st Contact Info) Description 06/25/2024 Lab Requisition [facility] - Main Lab 299 [facility] [place] [address] Lauren Garcia MD [address] [phone] Essential (primary) hypertension Social History Tobacco Use [...] CHEMISTRY METHOD 06/27/2024 1:02 PM EST [facility] Potassium 4.0 3.5 - 5.5 mmol/L LAB CHEMISTRY METHOD 06/27/2024 1:02 PM EST [facility] Chloride 110 96 - 110 mmol/L LAB CHEMISTRY METHOD 06/27/2024 1:02 PM [facility] CO2 21 21 - 32 mmol/L LAB CHEMISTRY METHOD 06/27/2024 1:02 PM [facility] Anion Gap 11 3 - 11 LAB CHEMISTRY METHOD 06/27/2024 1:02 PM [facility] Glucose 86 70 - 100 mg/dL LAB CHEMISTRY METHOD 06/27/2024 1:02 PM [facility] BUN 13 5 - 25 mg/dL LAB CHEMISTRY METHOD 06/27/2024 1:02 PM [facility] Creatinine 1.04 0.50 - 1.10 mg/dL LAB CHEMISTRY METHOD 06/27/2024 1:02 PM [facility] eGFR 52(L) >=60 mL/min/1. 73m2 LAB CHEMISTRY METHOD 06/27/2024 1:02 PM [facility] Comment:Calculation based on the Chronic Kidney Disease Epidemiology Collaboration (CKD-EPI) equation refit without adjustment for race. BUN/Creatinine Ratio 12.5 LAB CHEMISTRY METHOD 06/27/2024 1:02 PM [facility] Calcium 9.9 8.5 - 10.5 mg/dL LAB CHEMISTRY METHOD 06/27/2024 1:02 PM [facility] Blood Venous blood specimen / Unknown Venipuncture / Unknown 06/27/2024 7:52 AM EST 06/27/2024 11:50 AM EST us Lauren Garcia MD LAB BLOOD ORDERABLES Fin al Result [facility] [address] [place] [address], * (ABNORMAL) Complete blood count (06/27/2024 7:52 AM EST) WBC 5.2 4.8 - 10.8 K/mcL LAB HEMETOLOGY METHOD 06/27/2024 1:02 PM [facility] RBC 4.30 3.80 - 4.80 M/mcL LAB HEMETOLOGY METHOD 06/27/2024 1:02 PM [facility] Hemoglobin 11.0(L) 11.5 - 16.0 g/dL LAB HEMETOLOGY METHOD 06/27/2024 1:02 PM [facility] Hematocrit 38.7 35.0 - 47.0 % LAB HEMETOLOGY METHOD 06/27/2024 1:02 PM [facility] MCV 90.6 79.0 - 98.0 FL LAB HEMETOLOGY METHOD 06/27/2024 1:02 PM [facility] MCH 25.8(L) 27.0 - 32.0 pcg LAB HEMETOLOGY METHOD 06/27/2024 1:02 PM [facility] MCHC 28.4(L) 32.0 - 37.0 g/dL LAB HEMETOLOGY METHOD 06/27/2024 1:02 PM [facility] RDW 17.4(H) 11.0 - 15.0 % LAB HEMETOLOGY METHOD 06/27/2024 1:02 PM [facility] Platelets 330 130 - 400 K/mcL LAB HEMETOLOGY METHOD 06/27/2024 1:02 PM [facility] MPV 12.0(H) 7.0 - 11.0 FL LAB HEMETOLOGY METHOD 06/27/2024 1:02 PM [facility] NRBC 0.0 <1.0 % LAB HEMETOLOGY METHOD 06/27/2024 1:02 PM [facility] NRBC Absolute 0.00 <0.10 K/mcL LAB HEMETOLOGY METHOD 06/27/2024 1:02 PM [facility] Blood Venous blood specimen / Unknown Venipuncture / Unknown 06/27/2024 7:52 AM EST 06/27/2024 11:50 AM EST us Lauren Garcia MD LAB BLOOD ORDERABLES Fin al Result [facility] [address] [place] [address], documented in this encounter Visit Diagnoses Diagnosis Essential (primary) hypertension Unspecified essential hypertension documented in this encounter Additional Health Concerns Infection Onset Date Last Indicated Resolved Time VRE 05/08/2024 05/08/2024 documented as of this encounter Care Teams Director Of Research Center Relationship Specialty Start Date End Date Lauren Garcia MD [address] [place] [phone] PCP - General Family Medicine 04/15/24 documented as of this encounter
--- OUTSIDE RECORDS SUMMARY | 2025-04-14 20:00 | XMS_ITS | Clinical Summary ---
Author Organization Unknown Care Team Providers Care Lead Caster Helper Name Role Phone RAFA BUCK, MAY Unavailable Unavailable CORAZON CHRIS, SANDRA Unavailable Unavailable Payers Payer Name Policy Type Policy Number Effective Date Expira tion Date MEDICARE - [place] [id number] Problems Condition Name Condition Details Condition Category Status Onset Date Resolution Date Last Treatment Date Treating Clinician Comments URINARY TRACT INFECTION, SITE NOT SPECIFIED Active 2024-05 0 00:00: 00 Allergies, Adverse Reactions, Alerts Allergy Name Allergy Type Status Severity Reaction(s) Onset Date Inactive Date Treating Clinician Comments NKA Propensity to adverse reactions Active 2025-02 21:24:0 6 Vital Signs Vital Name Observation Time Observation Value Commen ts Temperature 2025-02-15 21:35:00.000 97.8 [degF] BMI (%) 2025-02-15 21:35:00.000 33 kg/m2 Height 2025-02-15 21:35:00.000 57 [in_us] Pulse 2025-02-15 21:35:00.000 78 /min O2 Saturation (%) 2025-02-15 21:35:00.000 94 % Respirations 2025-02-15 21:35:00.000 20 /min Weight (lbs) 2025-02-15 21:35:00.000 156 [lb_av] Systolic Blood Pressure 2025-02-15 21:35:00.000 112 mm [Hg] Diastolic Blood Pressure 2025-02-15 21:35:00.000 [...] PHYSICIAN/PROVIDER OF ANY CONCERNS.] Future Scheduled Test PATIENT HUERTA S A [...] MAINTAIN SITUATIONAL AWARENESS AND WILL NOTIFY CLINICAL DISTRIBUTION ASSOCIATE AND PHYSICIAN/PROVIDER WITH ANY CHANGE IN CONDITION. [code = SKILLED NURSE TO PERFORM ENVIRONMENTAL SAFETY RISK ASSESSMENT AND FALL RISK ASSESSMENT AND PROVIDE INSTRUCTION TO IMPLEMENT ENVIRONMENTAL SAFETY AND FALL PREVENTION STRATEGIES THROUGHOUT THE CERTIFICATION PERIOD. SKILLED NURSE WILL MAINTAIN SITUATIONAL AWARENESS AND WILL NOTIFY CLINICAL DISTRIBUTION ASSOCIATE AND PHYSICIAN/PROVIDER WITH ANY CHANGE IN CONDITION.] [...] OF URINARY TRACT INFECTION.] Future Scheduled Test SKILLED NU RSE FOR O/A AND SKILLED TEACHING RELATED TO SIGNS AND SYMPTOMS OF INFECTION AND INFECTION CONTROL MEASURES. [code = SKILLED NURSE FOR O/A AND SKILLED TEACHING RELATED TO SIGNS AND SYMPTOMS OF INFECTION AND INFECTION CONTROL MEASURES.] Future Scheduled Test PHYSICAL T HERAPIST TO EVALUATE PATIENT FOR STRENGTH AND GAIT TRAINING AND FALL PREVENTION [code = PHYSICAL THERAPIST TO EVALUATE PATIENT FOR STRENGTH AND GAIT TRAINING AND FALL PREVENTION] Goal Patient Goal - WALK MORE Goal Provider Goal - A PLAN OF CARE WILL BE ESTABLISHED THAT MEETS PATIENT'S RETIREMENT NEEDS AND INCLUDES PATIENT GOAL FOR HOME HEALTH. Goal Provider Goal - PATIENT/CAREGIVER WILL VERBALIZE UNDERSTANDING OF EDUCATION PROVIDED ON MEDICATIONS BY THE END OF THE CERTIFICATION PERIOD. Goal Provider Goal - PATIENT WILL HAVE [...] TREATMENT OF UTI. Goal Provider Goal - PATIENT/CAREGIVER WILL VERBALIZE/DEMONSTRATE UNDERSTANDING OF S/S OF INFECTION AND INFECTION CONTROL MEASURES. SIGNS AND SYMPTOMS OF INFECTION WILL BE IDENTIFIED AND PHYSICIAN NOTIFIED FOR PROMPT INTERVENTION THROUGHOUT THE CERTIFICATION PERIOD. Goal Provider Goal - A PHYSICAL THERAPY EVALUATION TO BE COMPLETED WITH RECOMMENDATIONS AND/OR WRITTEN PLAN OF TREATMENT ESTABLISHED FOR PHYSICIAN S SIGNATURE. Progress Notes Progress Notes <paragraph>[Visit Date: 2024 by HELEN BUCKLEY RN]:</paragraph><paragraph>SEE C NOTE</paragraph> Encounters Start Date/Time End Date/Time Encounter Type Admission Type Attending [facility] Facility Care Department Encounter ID Discharge Date Discharge Status Discharge Condition Discharge Reason Percent Goals Met 2025-02-15 00:00:00 2025-04-15 00:00:00 Outpatient SANDRA OSHEA [facility] [id number] 80.00
--- OUTSIDE RECORDS SUMMARY | 2025-04-14 20:00 | XMS_ITS | Clinical Summary ---
Author Organization Unknown Care Team Providers Care Video Production Engineer Name Role Phone RAFA BUCK, MAY Unavailable Unavailable CORAZON CHRIS, SANDRA Unavailable Unavailable Payers Payer Name Policy Type Policy Number Effective Date Expira tion Date [place]ICARE - [place] [id number] Problems Condition Name Condition Details Condition Category [...] MAINTAIN SITUATIONAL AWARENESS AND WILL NOTIFY CLINICAL DIRECTOR MARKETING COMMUNICATIONS AND PHYSICIAN/PROVIDER WITH ANY CHANGE IN CONDITION. [code = SKILLED NURSE TO PERFORM ENVIRONMENTAL SAFETY RISK ASSESSMENT AND FALL RISK ASSESSMENT AND PROVIDE INSTRUCTION TO IMPLEMENT ENVIRONMENTAL SAFETY AND FALL PREVENTION STRATEGIES THROUGHOUT THE CERTIFICATION PERIOD. SKILLED NURSE WILL MAINTAIN SITUATIONAL AWARENESS AND WILL NOTIFY CLINICAL DIRECTOR MARKETING COMMUNICATIONS AND PHYSICIAN/PROVIDER WITH ANY CHANGE IN CONDITION.] [...] CARE WILL BE ESTABLISHED THAT MEETS PATIENT'S PENITENTIARY NEEDS AND INCLUDES PATIENT GOAL FOR HOME [...] End Date/Time Encounter Type Admission Type Attending [facility] Facility Care Department Encounter ID Discharge Date Discharge Status Discharge Condition Discharge Reason Percent Goals Met 2025-02-15 00:00:00 2025-04-15 00:00:00 Outpatient SANDRA OSHEA [facility] [id number] 80.00
== END 2025-02-17 12:00 | disposition home or self-care (01) ==
LOC: HO.ED 20:03 → HO.EDOVER 02-17 00:52 → HO.ED 02-17 09:40
PROVIDERS: Emergency Provider Emergency Medicine; Visit Provider Internal Medicine
DX: N17.9 Acute kidney failure, unspecified (principal); H92.02 Otalgia, left ear; D64.9 Anemia, unspecified; I10 Essential (primary) hypertension; F03.90 Unspecified dementia, unspecified severity, without behavioral disturbance, psychotic disturbance, mood disturbance, and anxiety; Z87.440 Personal history of urinary (tract) infections; Z86.718 Personal history of other venous thrombosis and embolism; Z79.01 Long term (current) use of anticoagulants; Z79.899 Other long term (current) drug therapy; Z91.81 History of falling; Z87.891 Personal history of nicotine dependence
CPT/HCPCS: 36415; 70450; 71045; 71101; 72125; 73030; 73502; 80053; 81001; 82550; 83735; 84484; 85025; 93005; 93970; 96360; 99283; 99285; J7120

== ENCOUNTER → 2025-02-16 19:58 | Outpatient (BNV) | payer MEDICARE, OTHER, SELFPAY | PROVIDERS: Admitting Provider Internal Medicine; Emergency Provider Emergency Medicine; Visit Provider Internal Medicine | DX: N17.9 Acute kidney failure, unspecified (principal); N18.9 Chronic kidney disease, unspecified; E87.5 Hyperkalemia | CPT/HCPCS: 99283 ==

== ENCOUNTER 2025-04-04 18:50 | Emergency (ER) | payer MEDICARE, OTHER, SELFPAY ==
--- NOTE | ~2025-04-04 | XR_ITS ---
CLINICAL HISTORY: pain 3 view, pelvis and right hip Comparison: CR - XR HIP RT W [id number] - 02/16/25 02:31 EDT Findings: The bones are intact. Mild degenerative disease of both hip joints with joint space narrowing and osteophytosis. The soft tissues are unremarkable. IMPRESSION: No acute findings. Mild DJD. This document has been electronically signed by: Anabella Ponce MD on 04/04/2025 20:36:04
--- NOTE | ~2025-04-04 | CT_ITS ---
CLINICAL HISTORY: fall CT head without contrast Comparison: CT/SR - CT HEAD/BRAIN WO IV CON - 02/16/25 17:32 EDT Findings: No intra-axial mass, midline shift, hydrocephalus, or acute hemorrhage. Moderate atrophy-like change or white matter disease. The visualized paranasal sinuses and mastoid air cells are normal. The orbits are unremarkable. There is no acute fracture. IMPRESSION: 1. No acute intracranial findings specifically, no acute intracranial hemorrhage. 2. Moderate atrophy-like change or white matter disease. This document has been electronically signed by: Anabella Ponce MD on 04/04/2025 21:28:46
--- NOTE | ~2025-04-04 | CT_ITS ---
CLINICAL HISTORY: neck pain CT cervical spine without contrast Comparison: CT/SR - CT CERVICAL SPINE WO IV CON - 02/16/25 17:32 EDT Findings: Vertebral alignment is within normal limits. Moderate multilevel spondylosis of the cervical spine with disc space narrowing, endplate sclerosis, osteophytosis, and facet arthropathy causing moderate to severe spinal canal and neural foraminal narrowing most notably at C4-C5 level. diffuse osteopenia. No acute findings on limited view of the intracranial contents. No cervical fluid collections or masses. No consolidation or effusion at the lung apices. IMPRESSION: No acute findings. Moderate multilevel spondylosis, most notably at C4-C5 with moderate to severe spinal canal and neural foraminal narrowings. If clinically appropriate, MRI of the cervical spine without contrast can be obtained for further evaluation. This document has been electronically signed by: Anabella Ponce MD on 04/04/2025 21:02:38
[2025-04-04 18:57] VITALS: BP 157/68; BP 160/90; PULSE 86; PULSE 89; RESP 16; TEMP 36.6; O2SAT 94; O2SAT 95; BMI 32.5
--- NOTE | 2025-04-04 19:52 | ED.GENADULT ---
HPI - General Adult General Chief complaint: Fall Stated complaint: Fall from standing height /10 hip pain Time Seen by Provider: 04/04/25 19:47 Source: patient Mode of arrival: ambulatory Limitations: no limitations History of Present Illness ED Provider: Dr. Conley HPI narrative: This is a 89-year-old female history of hypertension, hypothyroidism presented hospital today for evaluation of a mechanical fall. Patient stated that she was trying to put her on her pants when she lost her balance. She fell down. She is complaining of bilateral hip pain. She is also complaining of neck pain as well from the fall. Denies any loss of consciousness. Patient denies any syncopal episode. Patient stated that she is having some shoulder pain. However she is able to move her right arm. Related Data Home Medications ?Medication ?Instructions ?Recorded ?Confirmed ascorbic acid (vitamin C) 250 mg 250 mg PO DAILY 11/13/24 02/16/25 tablet (Vitamin C) aspirin 81 mg tablet,delayed 81 mg PO DAILY 11/13/24 02/16/25 release atorvastatin 40 mg tablet 40 mg PO BEDTIME 11/13/24 02/16/25 cholecalciferol (vitamin D3) 50 50 mcg PO DAILY 11/13/24 02/16/25 mcg (2,000 unit) capsule (Vitamin D3) hydrochlorothiazide 12.5 mg tablet 12.5 mg PO DAILY 11/13/24 02/16/25 levothyroxine 50 mcg tablet 50 mcg PO DAILY@0600 11/13/24 02/16/25 lisinopril 10 mg tablet 15 mg PO DAILY 11/13/24 02/16/25 sertraline 50 mg tablet 75 mg PO DAILY 11/13/24 02/16/25 magnesium hydroxide 400 mg/5 mL 30 ml PO DAILY PRN Constipation 11/14/24 02/16/25 oral suspension (Milk of Magnesia) melatonin 3 mg tablet 6 mg PO BEDTIME 11/14/24 02/16/25 rivaroxaban 20 mg tablet (Xarelto) 20 mg PO DAILY@0730 11/14/24 02/16/25 sennosides 8.6 mg tablet (senna) 8.6 mg PO BID PRN Constipation 11/14/24 02/16/25 ferrous gluconate 324 mg (38 mg 324 mg PO DAILY 12/13/24 02/16/25 iron) tablet quetiapine 50 mg tablet 50 mg PO TID@0700,1200,1600 12/13/24 02/16/25 trazodone 50 mg tablet 12.5 mg PO DAILY@1600 12/13/24 02/16/25 zinc oxide 13 % topical cream 1 appl topical BID 12/13/24 02/16/25 (Desitin Daily Defense) Lactobacillus acidophilus 500 500 mmu cells PO DAILY 02/09/25 02/16/25 million cell capsule cephalexin 250 mg tablet 250 mg PO MOWEFR@0900 02/09/25 02/16/25 cholecalciferol (vitamin D3) 1,250 1,250 mcg PO QMONTH 02/09/25 02/16/25 mcg (50,000 unit) tablet loperamide 2 mg tablet 2 mg PO Q6H PRN Loose Stool 02/09/25 02/16/25 omeprazole 20 mg capsule,delayed 20 mg PO BID@0630,1630 02/09/25 02/16/25 release Previous Rx's ?Medication ?Instructions ?Recorded sulfamethoxazole 800 1 tab PO BID #10 tabs 02/13/25 mg-trimethoprim 160 mg tablet (Bactrim DS) Allergies Allergy/AdvReac Type Severity Reaction Status Date / Time No Known Allergies Allergy Verified 04/04/25 19:02 Review of Systems Review of Systems: Pertinent review of systems as mentioned in HPI. All other system otherwise negative. [facility] Past Medical History [facility] Narrative: Medical history as mentioned in HPI Medical History (Updated 04/04/25 @ 22:27 by Rachel Conley DO) Dementia with agitation Aggressive behavior Hiatal hernia History of DVT (deep vein thrombosis) HTN (hypertension) Hypothyroid Recurrent UTI HLD (hyperlipidemia) Dementia Surgical History History of ankle surgery H/O colonoscopy Social History Social History Household Members: Unknown / Unable to assess Housing: Unknown / Unable to assess Housing Other:: Hari Adler Are you a primary child care group leader to a significant other at home: No Do you presently have visiting nurse or other home services: Yes Alcohol intake: former Patient Tobacco Use Status: Former Tobacco user Tobacco use type: Cigarette Smoked in Last 30 Days: No e-Cigarette/Vaping Use: Former Use Use of substances other than those prescribed or required for medical reasons: No Advance Directives: Yes Advance Directives on File: Yes Advance Directives Date on File: 11/21/24 Do you have a plan to hurt others: No Plan service: No Physical Exam ED Exam Exam: General: Pleasant, no distress, interacting appropriately Head: Normacephalic, atraumatic ENT: oral mucosa moist, neck supple, no tracheal deviation, midline C-spine tenderness on exam Cardiovascular: regular rate, regular rhythm, no murmurs, rubbing, gallops Respiratory: CTAB, no wheeze, rales, rhonchi Gastrointestinal: Soft, non distended, non tender, non guarding Extremities: Patient does have +2 pitting edema lower extremity, there is some redness likely secondary to venous stasis changes. She is able to lift her legs bilaterally. Low suspicion for hip fracture however she is still have tenderness around the hip bilaterally. Neurological: Awake and alert, no facial droop noted Skin: Warm and dry Psychiatric: Appropriate mood and thoughts Vital Signs: Vital Signs - 24 hr 04/04/25 18:57 04/04/25 21:48 Temperature 97.8 F 97.5 F Pulse Rate 86 88 Respiratory Rate 16 16 Blood Pressure 157/68 H 144/66 H Pulse Oximetry 95 95 Oxygen Delivery Method Room Air Room Air BMI result Body Mass Index 32.5 Medical Decision Making Medical Decision Making MDM Narrative: 89-year-old female presented hospital today for evaluation of neck pain and hip pain after a fall. We will obtain a CT head CT C-spine. Patient is not currently on any blood thinner. We will obtain a hip x-ray to evaluate for any signs of pelvic fracture as well. Patient states she does not need any pain medicine at this time. Patient has had full range of motion of right shoulder. I do not think this is fracture. CT head and CT C-spine is negative. Hip x-ray is negative for any signs of fracture. We will plan to discharge back to assisted living facility at this time. Differential Diagnosis Differential Diagnoses: The differential diagnosis associated with the presentation includes Fall, closed head injury, C-spine injury, pelvic fracture Independent Interpretation I performed an independent interpretation of an: CT Scan Radiology Impression Discussion of test interpretation with radiology: I have reviewed the radiologist's reading. Discharge Plan Discharge Clinical Impression: Acute hip pain Qualifiers: Laterality: bilateral Qualified Code(s): M25.551 - Pain in right hip Fall Qualifiers: Encounter type: initial encounter Qualified Code(s): W19.XXXA - Unspecified fall, initial encounter Patient Disposition: Home, Self-Care Prescriptions: No Action atorvastatin 40 mg tablet 40 mg PO BEDTIME aspirin 81 mg tablet,delayed release (DR/EC) 81 mg PO DAILY levothyroxine 50 mcg tablet 50 mcg PO DAILY@0600 lisinopril 10 mg tablet 15 mg PO DAILY hydrochlorothiazide 12.5 mg tablet 12.5 mg PO DAILY ascorbic acid (vitamin C) [Vitamin C] 250 mg Tablet 250 mg PO DAILY sertraline 50 mg tablet 75 mg PO DAILY cholecalciferol (vitamin D3) [Vitamin D3] 50 mcg (2,000 unit) Capsule 50 mcg PO DAILY sennosides [senna] 8.6 mg Tablet 8.6 mg PO BID PRN (Reason: Constipation) magnesium hydroxide [Milk of Magnesia] 400 mg/5 mL Suspension 30 ml PO DAILY PRN (Reason: Constipation) Xarelto 20 mg tablet 20 mg PO DAILY@0730 Rx Instructions: Before breakfast. melatonin 3 mg Tablet 6 mg PO BEDTIME trazodone 50 mg Tablet 12.5 mg PO DAILY@1600 quetiapine 50 mg tablet 50 mg PO TID@0700,1200,1600 Desitin Daily Defense 13 % Cream 1 appl TOPICAL BID ferrous gluconate 324 mg (38 mg iron) Tablet 324 mg PO DAILY cephalexin 250 mg tablet 250 mg PO MOWEFR@0900 loperamide 2 mg Tablet 2 mg PO Q6H MDD 8mh PRN (Reason: Loose Stool) cholecalciferol (vitamin D3) 1,250 mcg (50,000 unit) Tablet 1,250 mcg PO QMONTH Lactobacillus acidophilus 500 million cell Capsule 500 mmu cells PO DAILY omeprazole 20 mg capsule,delayed release(DR/EC) 20 mg PO BID@0630,1630 sulfamethoxazole-trimethoprim [Bactrim DS] 800-160 mg tablet 1 tab PO BID Qty: 10 0RF Print Language: Wolof
--- OUTSIDE RECORDS SUMMARY | 2025-04-04 20:35 | XMS_ITS | Encounter Summary ---
Author Organization [employer] Address [address] [place] [address] Care Team Providers Care Playground Monitor Name Role Phone Lauren Garcia MD Primary Care Provider + Encounter Details Date Type Department Care Team (Late st Contact Info) Description 05/11/2024 Lab Requisition [facility] - Main Lab [address] [facility] [place] [address] Lauren Garcia MD [address] [facility] 1 [place], [place] [phone] Chronic kidney disease, unspecified; Essential (primary) hypertension; [...] mmol/L LAB CHEMISTRY METHOD 05/11/2024 10:09 AM [facility] Potassium 5.0 3.5 - 5.5 mmol/L LAB CHEMISTRY METHOD 05/11/2024 10:09 AM [facility] Chloride 105 96 - 110 mmol/L LAB CHEMISTRY METHOD 05/11/2024 10:09 AM [facility] CO2 25 21 - 32 mmol/L LAB CHEMISTRY METHOD 05/11/2024 10:09 AM [facility] Anion Gap 6 3 - 11 LAB CHEMISTRY METHOD 05/11/2024 10:09 AM [facility] Glucose 130(H) 70 - 100 mg/dL LAB CHEMISTRY METHOD 05/11/2024 10:09 AM [facility] BUN 24 5 - 25 mg/dL LAB CHEMISTRY METHOD 05/11/2024 10:09 AM [facility] Creatinine 1.13(H) 0.50 - 1.10 mg/dL LAB CHEMISTRY METHOD 05/11/2024 10:09 AM [facility] eGFR 47(L) >=60 mL/min/1. 73m2 LAB CHEMISTRY METHOD 05/11/2024 10:09 AM [facility] Comment:Calculation based on the Chronic Kidney Disease Epidemiology Collaboration (CKD-EPI) equation refit without adjustment for race. BUN/Creatinine Ratio 21.2 LAB CHEMISTRY METHOD 05/11/2024 10:09 AM [facility] Calcium 9.7 8.5 - 10.5 mg/dL LAB CHEMISTRY METHOD 05/11/2024 10:09 AM [facility] Blood Venous blood specimen / Unknown Venipuncture / Unknown 05/11/2024 6:33 AM EST 05/11/2024 9:28 AM EST us Lauren Garcia MD LAB BLOOD ORDERABLES Fin al Result [facility] [address] [place] [address], * (ABNORMAL) Complete blood count (05/11/2024 6:33 AM EST) [facility] WBC 9.1 4.8 - 10.8 K/mcL LAB HEMETOLOGY METHOD 05/11/2024 9:52 AM [facility] RBC 4.70 3.80 - 4.80 M/mcL LAB HEMETOLOGY METHOD 05/11/2024 9:52 AM [facility] Hemoglobin 11.6 11.5 - 16.0 g/dL LAB HEMETOLOGY METHOD 05/11/2024 9:52 AM [facility] Hematocrit 40.5 35.0 - 47.0 % LAB HEMETOLOGY METHOD 05/11/2024 9:52 AM [facility] MCV 87.1 79.0 - 98.0 FL LAB HEMETOLOGY METHOD 05/11/2024 9:52 AM [facility] MCH 24.9(L) 27.0 - 32.0 pcg LAB HEMETOLOGY METHOD 05/11/2024 9:52 AM [facility] MCHC 28.6(L) 32.0 - 37.0 g/dL LAB HEMETOLOGY METHOD 05/11/2024 9:52 AM [facility] RDW 14.3 11.0 - 15.0 % LAB HEMETOLOGY METHOD 05/11/2024 9:52 AM [facility] Platelets 225 130 - 400 K/mcL LAB HEMETOLOGY METHOD 05/11/2024 9:52 AM [facility] MPV 12.1(H) 7.0 - 11.0 FL LAB HEMETOLOGY METHOD 05/11/2024 9:52 AM [facility] NRBC 0.0 <1.0 % LAB HEMETOLOGY METHOD 05/11/2024 9:52 AM [facility] NRBC Absolute 0.00 <0.10 K/mcL LAB HEMETOLOGY METHOD 05/11/2024 9:52 AM EST [facility] Blood Venous blood specimen / Unknown Venipuncture / Unknown 05/11/2024 6:33 AM EST 05/11/2024 9:28 AM EST us Lauren Garcia MD LAB BLOOD ORDERABLES Fin al Result [facility] [address] [place] [address], documented in this encounter Visit Diagnoses Diagnosis Chronic kidney disease, unspecified Essential (primary) hypertension Unspecified essential hypertension Displaced comminuted fracture of shaft of right tibia, subsequent encounter for closed fracture with routine healing documented in this encounter Additional Health Concerns Infection Onset Date Last 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
--- OUTSIDE RECORDS SUMMARY | 2025-04-04 20:35 | XMS_ITS | Encounter Summary ---
Author Organization [employer] Address [address] [place] [address] Care Team Providers Care Parking Attendant Name Role Phone Lauren Garcia MD Primary Care Provider + Encounter Details Date Type Department Care Team (Late st Contact Info) Description 04/15/2024 Lab Requisition [facility] - Main Lab [address] [facility] [place] [address] Lauren Garcia MD [address] [facility] 1 [place], [place] [phone] Vitamin D deficiency, unspecified; Pathological fracture, right [...] LAB CHEMISTRY METHOD 04/15/2024 10:58 AM EST [facility] Blood Venous blood specimen / Unknown Venipuncture / Unknown 04/15/2024 7:06 AM EST 04/15/2024 8:53 AM EST Lauren Garcia MD LAB BLOOD ORDERABLES Fin al Result [facility] [address] [place] [address], * Vitamin B12 (04/15/2024 7:06 AM EST) Vitamin B-12 315 250 - 900 pcg/mL LAB CHEMISTRY METHOD 04/15/2024 11:36 AM EST [facility] Blood Venous blood specimen / Unknown Venipuncture / Unknown 04/15/2024 7:06 AM EST 04/15/2024 8:53 AM EST Lauren Garcia MD LAB BLOOD ORDERABLES Fin al Result Performing Organization Address City/[facility]/ZIP Co de Phone Number [facility] [address] [place] [address], * (ABNORMAL) Magnesium (04/15/2024 7:06 AM EST) Pathologist [facility] [place] Magnesium 1.8(L) 1.9 - 2.6 mg/dL LAB CHEMISTRY METHOD 04/15/2024 10:58 AM EST [facility] Blood Venous blood specimen / Unknown Venipuncture / Unknown 04/15/2024 7:06 AM EST 04/15/2024 8:53 AM EST Lauren Garcia MD LAB BLOOD ORDERABLES Fin al Result Performing Organization Address [facility]/ZIP Co de Phone Number [facility] [address] [place] [address], * Folate (04/15/2024 7:06 AM EST) Pathologist [facility] [place] Folate 12.3 2.8 - 17.0 ng/ml LAB CHEMISTRY METHOD 04/15/2024 11:36 AM EST [facility] Blood Venous blood specimen / Unknown Venipuncture / Unknown 04/15/2024 7:06 AM EST 04/15/2024 8:53 AM EST Lauren Garcia MD LAB BLOOD ORDERABLES Fin al Result Performing Organization Address City/[facility]/ZIP Co de Phone Number [facility] [address] [place] [address], * Thyroid stimulating hormone (04/15/2024 7:06 AM EST) TSH 0.65 0.40 - 4.00 mcIU/mL LAB CHEMISTRY METHOD 04/15/2024 10:58 AM EST [facility] Blood Venous blood specimen / Unknown Venipuncture / Unknown 04/15/2024 7:06 AM EST 04/15/2024 8:53 AM EST us Lauren Garcia MD LAB BLOOD ORDERABLES Fin al Result [facility] [address] [place] [address], * (ABNORMAL) Basic metabolic panel (04/15/2024 7:06 AM EST) Sodium 143 133 - 145 mmol/L LAB CHEMISTRY METHOD 04/15/2024 11:[address] [facility] Potassium 4.3 3.5 - 5.5 mmol/L LAB CHEMISTRY METHOD 04/15/2024 11:[address] [facility] Chloride 111(H) 96 - 110 mmol/L LAB CHEMISTRY METHOD 04/15/2024 11:[address] [facility] CO2 22 21 - 32 mmol/L LAB CHEMISTRY METHOD 04/15/2024 11:[address] [facility] Anion Gap 10 3 - 11 LAB CHEMISTRY METHOD 04/15/2024 11:[address] [facility] Glucose 102(H) 70 - 100 mg/dL LAB CHEMISTRY METHOD 04/15/2024 11:[address] [facility] BUN 35(H) 5 - 25 mg/dL LAB CHEMISTRY METHOD 04/15/2024 11:[address] [facility] Creatinine 1.10 0.50 - 1.10 mg/dL LAB CHEMISTRY METHOD 04/15/2024 11:[address] [facility] eGFR 49(L) >=60 mL/min/1. 73m2 LAB CHEMISTRY METHOD 04/15/2024 11:[address] [facility] Comment:Calculation based on the Chronic Kidney Disease Epidemiology Collaboration (CKD-EPI) equation refit without adjustment for race. BUN/Creatinine Ratio 31.8 LAB CHEMISTRY METHOD 04/15/2024 11:36 AM EST [facility] Calcium 9.9 8.5 - 10.5 mg/dL LAB CHEMISTRY METHOD 04/15/2024 11:[address] [facility] Blood Venous blood specimen / Unknown Venipuncture / Unknown 04/15/2024 7:06 AM EST 04/15/2024 8:53 AM EST us Lauren Garcia MD LAB BLOOD ORDERABLES Fin al Result [facility] [address] [place] [address], * (ABNORMAL) Complete blood count (04/15/2024 7:06 AM EST) WBC 6.8 4.8 - 10.8 K/mcL LAB HEMETOLOGY METHOD 04/15/2024 10:[address] [facility] RBC 3.80 3.80 - 4.80 M/[facility] LAB HEMETOLOGY METHOD 04/15/2024 10:[address] [facility] Hemoglobin 10.0(L) 11.5 - 16.0 g/dL LAB HEMETOLOGY METHOD 04/15/2024 10:[address] [facility] Hematocrit 32.7(L) 35.0 - 47.0 % LAB HEMETOLOGY METHOD 04/15/2024 10:[address] [facility] MCV 86.5 79.0 - 98.0 FL LAB HEMETOLOGY METHOD 04/15/2024 10:[address] [facility] MCH 26.5(L) 27.0 - 32.0 pcg LAB HEMETOLOGY METHOD 04/15/2024 10:[address] [facility] MCHC 30.6(L) 32.0 - 37.0 g/dL LAB HEMETOLOGY METHOD 04/15/2024 10:32 AM EST [facility] RDW 14.4 11.0 - 15.0 % LAB HEMETOLOGY METHOD 04/15/2024 10:32 AM EST [facility] Platelets 187 130 - 400 K/mcL LAB HEMETOLOGY METHOD 04/15/2024 10:[address] [facility] MPV 12.2(H) 7.0 - 11.0 FL LAB HEMETOLOGY METHOD 04/15/2024 10:32 AM EST [facility] NRBC 0.0 <1.0 % LAB HEMETOLOGY METHOD 04/15/2024 10:[address] [facility] NRBC Absolute 0.00 <0.10 K/mcL LAB HEMETOLOGY METHOD 04/15/2024 10:[address] 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
--- OUTSIDE RECORDS SUMMARY | 2025-04-04 20:35 | XMS_ITS | Encounter Summary ---
Author Organization [employer] [facility] Address [address] [place] [address] Care Team Providers Care Resident Care Director Name Role Phone Lauren Garcia MD Primary Care Provider + Encounter Details Date Type Department Care Team (Late st Contact Info) Description 05/09/2024 Lab Requisition [facility] - Main Lab [address] [facility] [place] [address] Lauren Garcia MD [address] [facility] 1 [place], [place] [phone] Frequency of micturition Social History Tobacco Use [...] reflex microscopic (05/08/2024 8:00 PM EST) Specific Lee Urine 1.017 1.003 - 1.030 LAB URINALYSIS - AUTOMATED METHOD 05/09/2024 11:42 AM [facility] pH, Urine 5.5 5.0 - 8.0 pH LAB URINALYSIS - AUTOMATED METHOD 05/09/2024 11:42 AM [facility] Leukocytes, Urine Large(A) Negative LAB URINALYSIS - AUTOMATED METHOD 05/09/2024 11:42 AM [facility] Nitrite, Urine Negative Negative LAB URINALYSIS - AUTOMATED METHOD 05/09/2024 11:42 AM [facility] Protein, Urine 100(A) <=Trace mg/dL LAB URINALYSIS - AUTOMATED METHOD 05/09/2024 11:42 AM [facility] Glucose, Urine Negative Negative mg/dL LAB URINALYSIS - AUTOMATED METHOD 05/09/2024 11:42 AM [facility] Ketones, Urine Negative Negative mg/dL LAB URINALYSIS - AUTOMATED METHOD 05/09/2024 11:42 AM [facility] Urobilinogen, Urine 0.2 0.2 - 1.0 mg/dL LAB URINALYSIS - AUTOMATED METHOD 05/09/2024 11:42 AM [facility] Bilirubin, Urine Negative Negative LAB URINALYSIS - AUTOMATED METHOD 05/09/2024 11:42 AM [facility] Blood, Urine Trace(A) Negative LAB URINALYSIS - AUTOMATED METHOD 05/09/2024 11:42 AM [facility] RBC, Urine 5.9(H) 0 - 4 /HPF LAB URINALYSIS - AUTOMATED METHOD 05/09/2024 11:42 AM [facility] WBC, Urine 359.9(H) 0 - 4 /HPF LAB URINALYSIS - AUTOMATED METHOD 05/09/2024 11:42 AM [facility] Squamous Epithelial, Urine 4 0 - 60 /LPF LAB URINALYSIS - AUTOMATED METHOD 05/09/2024 11:42 AM EST [facility] Bacteria, Urine Many(A) Negative /HPF LAB URINALYSIS - AUTOMATED METHOD 05/09/2024 11:42 AM EST [facility] Hyaline Casts, Urine 0.4 0 - 3 /LPF LAB URINALYSIS - AUTOMATED METHOD 05/09/2024 11:42 AM EST [facility] Urine Urine specimen from urethra / Unknown 05/08/2024 8:00 PM EST 05/09/2024 10:56 AM EST us Lauren Garcia MD LAB URINE ORDERABLES Fin al Result [facility] [address] [place] [address], * (ABNORMAL) Culture urine (05/08/2024 8:00 PM EST) Culture, Urine 10,000-49,000 CFU/mL Caryl tropicalis(A) JULISSA 05/13/2024 11:12 AM EST [facility] Comment: The organism value for this result has been updated. These results have been appended to the previously preliminary verified report. Edited result: Previously reported as Yeast on 05/12/2024 at 0916 EST. 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) JULISSA 05/13/2024 11:12 AM EST [facility] Comment: The organism value [...] MICROBIOLOGY - GENER AL ORDERABLES Final Result [facility] [address] [place] [address], [place] [phone] * (ABNORMAL) Urinalysis with reflex microscopic and culture (05/08/2024 8:00 PM EST) Specific Lee Urine 1.017 1.003 - 1.030 LAB URINALYSIS - AUTOMATED METHOD 05/09/2024 11:18 AM [facility] pH, Urine 5.5 5.0 - 8.0 pH LAB URINALYSIS - AUTOMATED METHOD 05/09/2024 11:18 AM [facility] Leukocytes, Urine Large(A) Negative LAB URINALYSIS - AUTOMATED METHOD 05/09/2024 11:18 AM [facility] Nitrite, Urine Negative Negative LAB URINALYSIS - AUTOMATED METHOD 05/09/2024 11:18 AM [facility] Protein, Urine 100(A) <=Trace mg/dL LAB URINALYSIS - AUTOMATED METHOD 05/09/2024 11:18 AM [facility] Glucose, Urine Negative Negative mg/dL LAB URINALYSIS - AUTOMATED METHOD 05/09/2024 11:18 AM [facility] Ketones, Urine Negative Negative mg/dL LAB URINALYSIS - AUTOMATED METHOD 05/09/2024 11:18 AM [facility] Urobilinogen, Urine 0.2 0.2 - 1.0 mg/dL LAB URINALYSIS - AUTOMATED METHOD 05/09/2024 11:18 AM [facility] Bilirubin, Urine Negative Negative LAB URINALYSIS - AUTOMATED METHOD 05/09/2024 11:18 AM [facility] Blood, Urine Trace(A) Negative LAB URINALYSIS - AUTOMATED METHOD 05/09/2024 11:18 AM [facility] RBC, Urine 5.9(H) 0 - 4 /HPF LAB URINALYSIS - AUTOMATED METHOD 05/09/2024 11:18 AM [facility] WBC, Urine 359.9(H) 0 - 4 /HPF LAB URINALYSIS - AUTOMATED METHOD 05/09/2024 11:18 AM [facility] Squamous Epithelial, Urine 4 0 - 60 /LPF LAB URINALYSIS - AUTOMATED METHOD 05/09/2024 11:18 AM [facility] Bacteria, Urine Many(A) Negative /HPF LAB URINALYSIS - AUTOMATED METHOD 05/09/2024 11:18 AM [facility] Hyaline Casts, Urine 0.4 0 - 3 /LPF LAB URINALYSIS - AUTOMATED METHOD 05/09/2024 11:18 AM [facility] Urine Urine specimen from urethra / Unknown 05/08/2024 8:00 PM EST 05/09/2024 10:56 AM EST us Lauren Garcia MD LAB URINE ORDERABLES Fin al Result [facility] [address] [place] [address], documented in this encounter Visit Diagnoses Diagnosis Frequency of micturition Urinary frequency documented in this encounter Additional Health Concerns Infection Onset Date Last Indicated Resolved 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
--- OUTSIDE RECORDS SUMMARY | 2025-04-04 20:35 | XMS_ITS | Encounter Summary ---
Author Organization [facility] Address [address] [place] [address] Care Team Providers Care Hod Carrier Name Role Phone Lauren Garcia MD Primary Care Provider + Encounter Details Date Type Department Care Team (Late st Contact Info) Description 05/23/[address] [facility] - Main Lab 299 [facility] [place] [address] Lauren Garcia MD [address] [phone] Anemia, unspecified Social History Tobacco Use Types [...] LAB CHEMISTRY METHOD 05/23/2024 2:24 PM EST [facility] Potassium 4.0 3.5 - 5.5 mmol/L LAB CHEMISTRY METHOD 05/23/2024 2:24 PM EST [facility] Chloride 108 96 - 110 mmol/L LAB CHEMISTRY METHOD 05/23/2024 2:24 PM [facility] CO2 25 21 - 32 mmol/L LAB CHEMISTRY METHOD 05/23/2024 2:24 PM [facility] Anion Gap 7 3 - 11 LAB CHEMISTRY METHOD 05/23/2024 2:24 PM [facility] Glucose 79 70 - 100 mg/dL LAB CHEMISTRY METHOD 05/23/2024 2:24 PM [facility] BUN 20 5 - 25 mg/dL LAB CHEMISTRY METHOD 05/23/2024 2:24 PM [facility] Creatinine 0.96 0.50 - 1.10 mg/dL LAB CHEMISTRY METHOD 05/23/2024 2:24 PM [facility] eGFR 57(L) >=60 mL/min/1. 73m2 LAB CHEMISTRY METHOD 05/23/2024 2:24 PM [facility] Comment:Calculation based on the Chronic Kidney Disease Epidemiology Collaboration (CKD-EPI) equation refit without adjustment for race. BUN/Creatinine Ratio 20.8 LAB CHEMISTRY METHOD 05/23/2024 2:24 PM [facility] Calcium 9.6 8.5 - 10.5 mg/dL LAB CHEMISTRY METHOD 05/23/2024 2:24 PM [facility] Blood Venous blood specimen / Unknown Venipuncture / Unknown 05/23/2024 7:02 AM EST 05/23/2024 12:18 PM EST us Lauren Garcia MD LAB BLOOD ORDERABLES Fin al Result [facility] [address] [place] [address], * (ABNORMAL) Complete blood count (05/23/2024 7:02 AM EST) WBC 5.6 4.8 - 10.8 K/[facility] LAB HEMETOLOGY METHOD 05/23/2024 1:39 PM [facility] RBC 3.80 3.80 - 4.80 M/mcL LAB HEMETOLOGY METHOD 05/23/2024 1:39 PM [facility] Hemoglobin 9.8(L) 11.5 - 16.0 g/dL LAB HEMETOLOGY METHOD 05/23/2024 1:39 PM [facility] Hematocrit 33.7(L) 35.0 - 47.0 % LAB HEMETOLOGY METHOD 05/23/2024 1:39 PM [facility] MCV 87.8 79.0 - 98.0 FL LAB HEMETOLOGY METHOD 05/23/2024 1:39 PM [facility] MCH 25.5(L) 27.0 - 32.0 pcg LAB HEMETOLOGY METHOD 05/23/2024 1:39 PM [facility] LAB MCHC 29.1(L) 32.0 - 37.0 g/dL LAB HEMETOLOGY METHOD 05/23/2024 1:39 PM [facility] RDW 14.9 11.0 - 15.0 % LAB HEMETOLOGY METHOD 05/23/2024 1:39 PM [facility] Platelets 158 130 - 400 K/mcL LAB HEMETOLOGY METHOD 05/23/2024 1:39 PM [facility] MPV 11.0 7.0 - 11.0 FL LAB HEMETOLOGY METHOD 05/23/2024 1:39 PM [facility] NRBC 0.0 <1.0 % LAB HEMETOLOGY METHOD 05/23/2024 1:39 PM [facility] NRBC Absolute 0.00 <0.10 K/mcL LAB HEMETOLOGY METHOD 05/23/2024 1:39 PM [facility] Blood Venous blood specimen / Unknown Venipuncture / Unknown 05/23/2024 7:02 AM EST 05/23/2024 12:18 PM EST Lauren Garcia MD LAB BLOOD ORDERABLES Fin al Result [facility] ([facility] LAB [address] [place] [address], documented in this encounter Visit Diagnoses Diagnosis Anemia, unspecified documented in this encounter Additional Health Concerns Infection Onset Date Last Indicated Resolved Time 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
--- OUTSIDE RECORDS SUMMARY | 2025-04-04 20:35 | XMS_ITS | Encounter Summary ---
Author Organization [facility] Address [address] [place] [address] Care Team Providers Care Sales Development Coordinator Name Role Phone Lauren Garcia MD Primary Care Provider + Encounter Details Date Type Department Care Team (Late st Contact Info) Description 06/01/2024 Lab Requisition [facility] - Main Lab 299 [facility] [place] [address] Lauren Garcia MD 819 [facility] [place], [place] [phone] Altered mental status, unspecified; Urinary tract infection, [...] reflex microscopic (05/31/2024 2:00 PM EST) Specific [place] Urine 1.024 1.003 - 1.030 LAB URINALYSIS - AUTOMATED METHOD 06/01/2024 11:26 AM [facility] pH, Urine 5.5 5.0 - 8.0 pH LAB URINALYSIS - AUTOMATED METHOD 06/01/2024 11:26 AM [facility] Leukocytes, Urine Small(A) Negative LAB URINALYSIS - AUTOMATED METHOD 06/01/2024 11:26 AM [facility] Nitrite, Urine Positive(A) Negative LAB URINALYSIS - AUTOMATED METHOD 06/01/2024 11:26 AM [facility] Protein, Urine Trace <=Trace mg/dL LAB URINALYSIS - AUTOMATED METHOD 06/01/2024 11:26 AM [facility] Glucose, Urine Negative Negative mg/dL LAB URINALYSIS - AUTOMATED METHOD 06/01/2024 11:26 AM [facility] Ketones, Urine Trace(A) Negative mg/dL LAB URINALYSIS - AUTOMATED METHOD 06/01/2024 11:26 AM [facility] Urobilinogen , Urine 1.0 0.2 - 1.0 mg/dL LAB URINALYSIS - AUTOMATED METHOD 06/01/2024 11:26 AM [facility] Bilirubin, Urine Negative Negative LAB URINALYSIS - AUTOMATED METHOD 06/01/2024 11:26 AM [facility] Blood, Urine Negative Negative LAB URINALYSIS - AUTOMATED METHOD 06/01/2024 11:26 AM [facility] RBC, Urine 2.0 0 - 4 /HPF LAB URINALYSIS - AUTOMATED METHOD 06/01/2024 11:26 AM [facility] WBC, Urine 8.0(H) 0 - 4 /HPF LAB URINALYSIS - AUTOMATED METHOD 06/01/2024 11:26 AM [facility] Squamous Epithelial, Urine 10 0 - 60 /LPF LAB URINALYSIS - AUTOMATED METHOD 06/01/2024 11:26 AM EST [facility] Crystals, Urine MOD CALCIUM OXALATE /LPF LAB URINALYSIS - AUTOMATED METHOD 06/01/2024 11:26 AM [facility] Bacteria, Urine Many(A) Negative /HPF LAB URINALYSIS - AUTOMATED METHOD 06/01/2024 11:26 AM [facility] Hyaline Casts, Urine 0.0 0 - 3 /LPF LAB URINALYSIS - AUTOMATED METHOD 06/01/2024 11:26 AM [facility] Urine Urine specimen obtained by clean catch procedure / Unknown Non-blood Collection / Unknown 05/31/2024 2:00 PM EST 06/01/2024 11:04 AM EST Lauren Garcia MD LAB URINE ORDERABLES Fin al Result [facility] [address] [place] [address], * (ABNORMAL) Culture urine (05/31/2024 2:00 PM EST) Culture, Urine >100,000 CFU/mL Escherichia coli(A) JULISSA 06/03/2024 9:53 AM [facility] Urine Urine specimen obtained [...] MICROBIOLOGY - GENER AL ORDERABLES Final Result [facility] [address] [place] [address], documented in this encounter Visit Diagnoses Diagnosis Altered mental status, unspecified Urinary tract infection, site not specified documented in this encounter Additional Health Concerns Infection Onset Date Last Indicated Resolved Time VRE 05/08/2024 05/08/2024 documented as of this encounter Care Teams Sales Development Coordinator Relationship Specialty Start Date End Date Lauren Garcia MD [address] [place] [phone] PCP - General Family Medicine 04/15/24 documented as of this encounter
--- OUTSIDE RECORDS SUMMARY | 2025-04-04 20:35 | XMS_ITS | Encounter Summary ---
Author Organization [facility] Address [address] [place] [address] Care Team Providers Care Punch Molder Name Role Phone Lauren Garcia MD Primary Care Provider + Encounter Details Date Type Department Care Team (Late st Contact Info) Description 06/23/2024 Lab Requisition [facility] - Main Lab 299 [facility] [place] [address] Lauren Garcia MD [address] [phone] Chronic kidney disease, unspecified Social History Tobacco [...] AM EST) WBC 5.1 4.8 - 10.8 K/[facility] LAB HEMETOLOGY METHOD 06/23/2024 11:34 AM EST [facility] LAB RBC 4.10 3.80 - 4.80 M/[facility] LAB HEMETOLOGY METHOD 06/23/2024 11:34 AM EST [facility] LAB Hemoglobin 10.6(L) 11.5 - 16.0 g/dL LAB HEMETOLOGY METHOD 06/23/2024 11:34 AM EST [facility] LAB Hematocrit 36.1 35.0 - 47.0 % LAB HEMETOLOGY METHOD 06/23/2024 11:34 AM [facility] LAB MCV 87.8 79.0 - 98.0 FL LAB HEMETOLOGY METHOD 06/23/2024 11:34 AM [facility] MCH 25.8(L) 27.0 - 32.0 pcg LAB HEMETOLOGY METHOD 06/23/2024 11:34 AM [facility] MCHC 29.4(L) 32.0 - 37.0 g/dL LAB HEMETOLOGY METHOD 06/23/2024 11:34 AM [facility] LAB RDW 16.7(H) 11.0 - 15.0 % LAB HEMETOLOGY METHOD 06/23/2024 11:34 AM [facility] LAB Platelets 267 130 - 400 K/mcL LAB HEMETOLOGY METHOD 06/23/2024 11:34 AM [facility] MPV 12.4(H) 7.0 - 11.0 FL LAB HEMETOLOGY METHOD 06/23/2024 11:34 AM [facility] NRBC 0.0 <1.0 % LAB HEMETOLOGY METHOD 06/23/2024 11:34 AM [facility] NRBC Absolute 0.00 <0.10 K/mcL LAB HEMETOLOGY METHOD 06/23/2024 11:34 AM [facility] Blood Venous blood specimen / Unknown Venipuncture / Unknown 06/23/2024 8:46 AM EST 06/23/2024 10:45 AM EST us Lauren Garcia MD LAB BLOOD ORDERABLES Fin al Result [facility] LAB [address] [place] [address], documented in this encounter Visit Diagnoses Diagnosis Chronic kidney disease, unspecified documented in this encounter Additional Health Concerns Infection Onset Date Last Indicated Resolved Time VRE 05/08/2024 05/08/2024 documented as of this encounter Care Teams Punch Molder Relationship Specialty Start Date End Date Lauren Garcia MD [address] [address] PCP - General Family Medicine 04/15/24 documented as of this encounter
--- OUTSIDE RECORDS SUMMARY | 2025-04-04 20:35 | XMS_ITS | Encounter Summary ---
Author Organization [employer] [facility] Address [address] [place] [address] Care Team Providers Care Service Center Assistant Name Role Phone Lauren Garcia MD Primary Care Provider + Encounter Details Date Type Department Care Team (Late st Contact Info) Description 06/09/[address] [facility] - Main Lab 299 [facility] [place] [address] Lauren Garcia MD [address] [phone] Altered mental status, unspecified; Vitamin D deficiency, [...] LAB CHEMISTRY METHOD 06/09/2024 11:28 AM EST [facility] Potassium 4.3 3.5 - 5.5 mmol/L LAB CHEMISTRY METHOD 06/09/2024 11:28 AM EST [facility] Chloride 104 96 - 110 mmol/L LAB CHEMISTRY METHOD 06/09/2024 11:28 AM [facility] LAB CO2 26 21 - 32 mmol/L LAB CHEMISTRY METHOD 06/09/2024 11:28 AM [facility] LAB Anion Gap 9 3 - 11 LAB CHEMISTRY METHOD 06/09/2024 11:28 AM [facility] LAB Glucose 87 70 - 100 mg/dL LAB CHEMISTRY METHOD 06/09/2024 11:28 AM [facility] BUN 51(H) 5 - 25 mg/dL LAB CHEMISTRY METHOD 06/09/2024 11:28 AM [facility] LAB Creatinine 2.09(H) 0.50 - 1.10 mg/dL LAB CHEMISTRY METHOD 06/09/2024 11:28 AM [facility] LAB eGFR 23(L) >=60 mL/min/1. 73m2 LAB CHEMISTRY METHOD 06/09/2024 11:28 AM [facility] LAB Comment:Calculation based on the Chronic Kidney Disease Epidemiology Collaboration (CKD-EPI) equation refit without adjustment for race. BUN/Creatinine Ratio 24.4 LAB CHEMISTRY METHOD 06/09/2024 11:28 AM [facility] LAB Calcium 9.7 8.5 - 10.5 mg/dL LAB CHEMISTRY METHOD 06/09/2024 11:28 AM [facility] Blood Venous blood specimen / Unknown Venipuncture / Unknown 06/09/2024 7:19 AM EST 06/09/2024 10:24 AM EST us Lauren Garcia MD LAB BLOOD ORDERABLES Fin al Result [facility] [address] [place] [address], * (ABNORMAL) Complete blood count (06/09/2024 7:19 AM EST) WBC 5.5 4.8 - 10.8 K/mcL LAB HEMETOLOGY METHOD 06/09/2024 11:24 AM [facility] RBC 3.90 3.80 - 4.80 M/mcL LAB HEMETOLOGY METHOD 06/09/2024 11:24 AM [facility] Hemoglobin 10.1(L) 11.5 - 16.0 g/dL LAB HEMETOLOGY METHOD 06/09/2024 11:24 AM [facility] LAB Hematocrit 33.6(L) 35.0 - 47.0 % LAB HEMETOLOGY METHOD 06/09/2024 11:24 AM [facility] LAB MCV 85.3 79.0 - 98.0 FL LAB HEMETOLOGY METHOD 06/09/2024 11:24 AM [facility] LAB MCH 25.6(L) 27.0 - 32.0 pcg LAB HEMETOLOGY METHOD 06/09/2024 11:24 AM [facility] LAB MCHC 30.1(L) 32.0 - 37.0 g/dL LAB HEMETOLOGY METHOD 06/09/2024 11:24 AM [facility] LAB RDW 16.5(H) 11.0 - 15.0 % LAB HEMETOLOGY METHOD 06/09/2024 11:24 AM [facility] LAB Platelets 185 130 - 400 K/mcL LAB HEMETOLOGY METHOD 06/09/2024 11:24 AM [facility] LAB MPV 13.0(H) 7.0 - 11.0 FL LAB HEMETOLOGY METHOD 06/09/2024 11:24 AM [facility] LAB NRBC 0.0 <1.0 % LAB HEMETOLOGY METHOD 06/09/2024 11:24 AM [facility] LAB NRBC Absolute 0.00 <0.10 K/mcL LAB HEMETOLOGY METHOD 06/09/2024 11:24 AM EST [facility] Blood Venous blood specimen / Unknown Venipuncture / Unknown 06/09/2024 7:19 AM EST 06/09/2024 10:24 AM EST Lauren Garcia MD LAB BLOOD ORDERABLES Fin al Result [facility] ([facility]) [facility] [address] [place] [address], documented in this encounter Visit Diagnoses Diagnosis Altered mental status, unspecified Vitamin D deficiency, unspecified documented in this encounter Additional Health Concerns Infection Onset Date Last Indicated Resolved Time VRE 05/08/2024 05/08/2024 documented as of this encounter Care Teams Service Center Assistant Relationship Specialty Start Date End Date Lauren Garcia MD [address] [phone] PCP - General Family Medicine 04/15/24 documented as of this encounter
--- OUTSIDE RECORDS SUMMARY | 2025-04-04 20:35 | XMS_ITS | Clinical Summary ---
Author Organization [address] Address [address] [place] [phone] Phone Care Team Providers Care Maintenance Instructor Name Role Phone Elder, Lauren Salvador MD [...] Screening 04/15/2024 Depression Screening 05/04/2024 COVID-19 Vaccine (1 - 2024-2 6 season) 2025 Influenza Vaccine (#1) 2025 HIB [...] Last Indicated VRE 05/08/2024 05/08/2024 Insurance MEDICARE [facility] Care Teams Maintenance Instructor Relationship Specialty Start Date End Date Lauren Garcia MD [address] [address] PCP - General Family Medicine 04/15/24
--- OUTSIDE RECORDS SUMMARY | 2025-04-04 20:35 | XMS_ITS | Encounter Summary ---
Author Organization [facility] Address [address] [place] [address] Care Team Providers Care Event Marketing Coordinator Name Role Phone Lauren Garcia MD Primary Care Provider + Encounter Details Date Type Department Care Team (Late st Contact Info) Description 06/11/2024 Lab Requisition [facility] - Main Lab 299 [facility] [place] [address] Lauren Garcia MD [address] [phone] Essential (primary) hypertension Social History Tobacco Use [...] LAB CHEMISTRY METHOD 06/13/2024 11:30 AM EST [facility] Potassium 3.9 3.5 - 5.5 mmol/L LAB CHEMISTRY METHOD 06/13/2024 11:30 AM EST [facility] Chloride 104 96 - 110 mmol/L LAB CHEMISTRY METHOD 06/13/2024 11:[address] [facility] CO2 28 21 - 32 mmol/L LAB CHEMISTRY METHOD 06/13/2024 11:[address] [facility] Anion Gap 6 3 - 11 LAB CHEMISTRY METHOD 06/13/2024 11:[address] [facility] Glucose 72 70 - 100 mg/dL LAB CHEMISTRY METHOD 06/13/2024 11:[address] [facility] BUN 45(H) 5 - 25 mg/dL LAB CHEMISTRY METHOD 06/13/2024 11:[address] [facility] Creatinine 1.32(H) 0.50 - 1.10 mg/dL LAB CHEMISTRY METHOD 06/13/2024 11:[address] [facility] LAB eGFR 39(L) >=60 mL/min/1. 73m2 LAB CHEMISTRY METHOD 06/13/2024 11:[address] [facility] LAB Comment:Calculation based on the Chronic Kidney Disease Epidemiology Collaboration (CKD-EPI) equation refit without adjustment for race. BUN/Creatinine Ratio 34.1 LAB CHEMISTRY METHOD 06/13/2024 11:[address] [facility] Calcium 9.5 8.5 - 10.5 mg/dL LAB CHEMISTRY METHOD 06/13/2024 11:[address] [facility] Blood Venous blood specimen / Unknown Venipuncture / Unknown 06/13/2024 5:32 AM EST 06/13/2024 10:14 AM EST us Lauren Garcia MD LAB BLOOD ORDERABLES Fin al Result [facility] [address] [place] [address], * (ABNORMAL) Complete blood count (06/13/2024 5:32 AM EST) WBC 8.2 4.8 - 10.8 K/mcL LAB HEMETOLOGY METHOD 06/13/2024 10:[address] [facility] RBC 3.70(L) 3.80 - 4.80 M/mcL LAB HEMETOLOGY METHOD 06/13/2024 10:[address] [facility] Hemoglobin 9.5(L) 11.5 - 16.0 g/dL LAB HEMETOLOGY METHOD 06/13/2024 10:[address] [facility] Hematocrit 31.9(L) 35.0 - 47.0 % LAB HEMETOLOGY METHOD 06/13/2024 10:[address] [facility] LAB MCV 86.9 79.0 - 98.0 FL LAB HEMETOLOGY METHOD 06/13/2024 10:[address] [facility] MCH 25.9(L) 27.0 - 32.0 pcg LAB HEMETOLOGY METHOD 06/13/2024 10:[address] [facility] MCHC 29.8(L) 32.0 - 37.0 g/dL LAB HEMETOLOGY METHOD 06/13/2024 10:[address] [facility] LAB RDW 16.6(H) 11.0 - 15.0 % LAB HEMETOLOGY METHOD 06/13/2024 10:[address] [facility] Platelets 168 130 - 400 K/mcL LAB HEMETOLOGY METHOD 06/13/2024 10:[address] [facility] MPV 12.2(H) 7.0 - 11.0 FL LAB HEMETOLOGY METHOD 06/13/2024 10:[address] [facility] NRBC 0.0 <1.0 % LAB HEMETOLOGY METHOD 06/13/2024 10:[address] [facility] NRBC Absolute 0.00 <0.10 K/mcL LAB HEMETOLOGY METHOD 06/13/2024 10:[address] [facility] Blood Venous blood specimen / Unknown Venipuncture / Unknown 06/13/2024 5:32 AM EST 06/13/2024 10:14 AM EST Lauren Garcia MD LAB BLOOD ORDERABLES Fin al Result [facility]) [facility] [address] [place] [address], documented in this encounter Visit Diagnoses Diagnosis Essential (primary) hypertension Unspecified essential hypertension documented in this encounter Additional Health Concerns Infection Onset Date Last Indicated Resolved Time VRE 05/08/2024 05/08/2024 documented as of this encounter Care Teams Event Marketing Coordinator Relationship Specialty Start Date End Date Lauren Garcia MD [address] [phone] PCP - General Family Medicine 04/15/24 documented as of this encounter
--- OUTSIDE RECORDS SUMMARY | 2025-04-04 20:35 | XMS_ITS | Encounter Summary ---
Author Organization [facility] Address [address] [place] [address] Care Team Providers Care Ceramic Products Sales Engineer Name Role Phone Lauren Garcia MD Primary Care Provider + Encounter Details Date Type Department Care Team (Late st Contact Info) Description 05/31/[address] [facility] - Main Lab 299 [facility] [place] [address] Lauren Garcia MD 819 [facility] 1 [place], [place] [phone] Urinary tract infection, site not specified; Altered [...] reflex microscopic (05/30/2024 12:00 PM EST) Specific [place] Urine 1.019 1.003 - 1.030 LAB URINALYSIS - AUTOMATED METHOD 05/31/2024 10:47 AM [facility] pH, Urine 5.5 5.0 - 8.0 pH LAB URINALYSIS - AUTOMATED METHOD 05/31/2024 10:47 AM [facility] LAB Leukocytes, Urine Large(A) Negative LAB URINALYSIS - AUTOMATED METHOD 05/31/2024 10:47 AM [facility] Nitrite, Urine Negative Negative LAB URINALYSIS - AUTOMATED METHOD 05/31/2024 10:47 AM [facility] Protein, Urine Trace <=Trace mg/dL LAB URINALYSIS - AUTOMATED METHOD 05/31/2024 10:47 AM [facility] Glucose, Urine Negative Negative mg/dL LAB URINALYSIS - AUTOMATED METHOD 05/31/2024 10:47 AM [facility] Ketones, Urine Negative Negative mg/dL LAB URINALYSIS - AUTOMATED METHOD 05/31/2024 10:47 AM [facility] LAB Urobilinogen , Urine 1.0 0.2 - 1.0 mg/dL LAB URINALYSIS - AUTOMATED METHOD 05/31/2024 10:47 AM [facility] Bilirubin, Urine Negative Negative LAB URINALYSIS - AUTOMATED METHOD 05/31/2024 10:47 AM [facility] Blood, Urine Trace(A) Negative LAB URINALYSIS - AUTOMATED METHOD 05/31/2024 10:47 AM [facility] RBC, Urine 4.0 0 - 4 /HPF LAB URINALYSIS - AUTOMATED METHOD 05/31/2024 10:47 AM [facility] WBC, Urine 651.5(H) 0 - 4 /HPF LAB URINALYSIS - AUTOMATED METHOD 05/31/2024 10:47 AM [facility] Squamous Epithelial, Urine 74(H) 0 - 60 /LPF LAB URINALYSIS - AUTOMATED METHOD 05/31/2024 10:47 AM [facility] Crystals, Urine Light Calcium Oxalate /LPF 05/31/2024 10:47 AM EST [facility] Bacteria, Urine Many(A) Negative /HPF LAB URINALYSIS - AUTOMATED METHOD 05/31/2024 10:47 AM [facility] Hyaline Casts, Urine 3.0 0 - 3 /LPF LAB URINALYSIS - AUTOMATED METHOD 05/31/2024 10:47 AM [facility] Yeast, Urine Present(A) None /HPF 05/31/2024 10:47 AM [facility] Urine Urine specimen obtained by clean catch procedure / Unknown Non-blood Collection / Unknown 05/30/2024 12:00 PM EST 05/31/2024 9:02 AM EST us Lauren Garcia MD LAB URINE ORDERABLES Fin al Result [facility] [address] [place] [address], * (ABNORMAL) Culture urine (05/30/2024 12:00 PM EST) Culture, Urine >100,000 CFU/mL Escherichia coli(A) JULISSA 06/02/2024 8:13 AM [facility] Urine Urine specimen obtained by clean catch procedure / Unknown Non-blood Collection / Unknown 05/30/2024 12:00 PM EST 05/31/2024 9:02 AM EST [facility] - 06/02/2024 8:13 AM EST [...] MICROBIOLOGY - GENER AL ORDERABLES Final Result [facility] ([facility]) [facility] [address] [place] [address], documented in this encounter Visit Diagnoses Diagnosis Urinary tract infection, site not specified Altered mental status, unspecified documented in this encounter Additional Health Concerns Infection Onset Date Last Indicated Resolved Time VRE 05/08/2024 05/08/2024 documented as of this encounter Care Teams Ceramic Products Sales Engineer Relationship Specialty Start Date End Date Lauren Garcia MD [address] [place] [address] PCP - General Family Medicine 04/15/24 documented as of this encounter
--- OUTSIDE RECORDS SUMMARY | 2025-04-04 20:35 | XMS_ITS | Data Portability ---
Author Organization [place] - [facility], [facility] Address [address] [place] [address] Assessment Encounter Date Assessment Date Assessment LastModified [...] right ankle 3 v out of cast [email or web address] Not available 04/26/2024 12:49:17 05/17/2024 05/17/2024 SUBJECTIVE Chief Complaint Follow-up for right ankle fracture, status post-ORIF performed on April 10, 2024. History of Present Illness The patient, YESSENIA, is accompanied by a family member from her rehab facility. She reports minimal pain and is doing well. TM remains gel-hmumlt-rjojzwm on the affected extremity. OBJECTIVE Examination The patient's right ankle shows foot swelling. The calf is soft and non-tender. Medial and lateral incisions are well-healed with monofilament suture in place. Imaging X-rays ordered, obtained, and reviewed by me today at [facility] of the right ankle, three views, show [...] ankle X-ray. Date: 05/17/2024 Patient Name: YESSENIA [email or web address] Not available 05/17/2024 11:39:26 06/15/2024 06/15/2024 SUBJECTIVE [...] obtained, and reviewed by me today at [facility]: Right ankle, three views, show malleolar fixation intact, fracture lines through the medial and lateral malleolus resolving, ankle joint spaces maintained. ASSESSMENT Right ankle fracture healing. PLAN Discontinue cast. Allow weight-bearing as tolerated with the goal of resuming ambulation. Recheck in three months. [email or web address] Not available 06/15/2024 12:09:52 09/13/2024 09/13/2024 SUBJECTIVE: [...] obtained and reviewed by me today at [facility] Right ankle three views show the ankle joints appropriately positioned. The lateral, medial and posterior malleoli fracture alignment maintained with signs of healing. Fracture lines blurred fibular and medial malleolar implants in place. ASSESSMENT: Right ankle fracture trimaleolar status post ORIF with routine healing and good recovery to date. PLAN: Further follow up on an as needed basis. No restrictions outlined. [email or web address] Not available 09/13/2024 12:11:09 Plan of Treatment Reminders Order Date Submit Date Provider Last Modified By Organization Details Last Modified Time Details Appointments None recorded. Lab None recorded. Referral None recorded. Procedures None recorded. Surgeries None recorded. Imaging XR, ankle, 3 or more view - 315 rt ankle 3v recheck 025 025 [facility], [address], [place], [address], 5 12:58:04 XR, ankle, 3 or more view - 314 3v rt ankle global cast off first 025 025 cstamand [facility], [address], [place], [address], 5 06:52:27 XR, ankle, 3 or more view - 314- right ankle 3v global cast off first 025 025 [email or web address] 4 [facility], [address], [place], [address], 5 12:03:07 XR, ankle, 3 or more view - 314 rt ankle 3v global 024 024 [email or web address] 0 [facility], [address], [place], [address], 4 16:14:13 Medication Orders None recorded. Patient TargetsNo targets recorded. Patient Instructions Encounter Date Encounter Id Patient Instructions Last Modified By Organization Details Last Modified Time 04/26/[id number] application of cast, short leg cast* - 314 SLC NWB NEUTRAL, pt very stiff unable to get to neutral [email or web address] Not available 05/03/2024 16:14:13 05/17/20249624264 cast removal* - 314 cast off and xr [email or web address] Not available 05/17/2024 12:03:07 application of cast, short leg cast* - 314 SLC neutral WB Not available 05/17/2024 12:14:11 06/15/20245893826 cast removal* - 314 rt ankle cast off and xr, global [email or web address] Not available 06/15/2024 13:05:35 Reason for Referral None Reported. Results Created Date Observation Date Name Description Value Unit Range Abnormal Flag Note LastModifiedBy Organization Detail LastModifiedTime 04/26/20 24 04/26/2024 XR, ankle , 3 or more view [email or web address]:/ [email or web address] ?Encry pted=s hAaTro YD8dLq bEUv6g %2BXZw aYqtaq 0bqfl% 2Fg9IQ a4ajBk vP9nXo QUaueC m3YtLR [place] [address] 6v5163 AC0Kqb nuBUqW kKiQtr MwF INTERFACE [facility] [address], [place], [address], 04/26/2024 10:34:44 04/26/20 24 04/26/2024 XR, ankle , 3 or more view [email or web address]:/ [email or web address] ?Encry pted=s hAaTro YD8dLq bEUv6g %2BXZw aYqtaq 0bqfl% 2Fg9IQ a4ajBk vP9nXo QUaueC m3YtLR [facility] [place] [address] 1y9533 AC0Kqb nuBUqW kKiQtr MwF INTERFACE [facility] [address], [place], [address], 04/26/2024 10:34:46 05/17/19 25 05/17/2024 XR, ankle , 3 or more view [email or web address] ?Encry pted=s hAaTro YD8dLq bEUv6g %2BXZw aYqtaq 0bqfl% 2Fg9IQ a4ajBk vP9nXo QUaueC m3YtLR Zl JJ8mAn HZtai3 7x2906 AC0Kqb 3mFUaW vKiQtr MwF INTERFACE [facility] [address] [facility] [address], [place], [address], 05/17/2024 10:58:19 05/17/19 25 05/17/2024 XR, ankle , 3 or more view [email or web address]:/ [email or web address] ?Encry pted=s hAaTro YD8dLq bEUv6g %2BXZw aYqtaq 0bqfl% 2Fg9IQ a4ajBk vP9nXo QUaueC m3YtLR FvZlgJ JJ8mAn HZtai3 1i1087 AC0Kqb 3mFUaW vKiQtr MwF INTERFACE [facility] [address] [facility] [address], [place], [address], 05/17/2024 10:58:21 06/15/19 25 06/15/2024 XR, ankle , 3 or more view [email or web address]:/ [email or web address] ?Encry pted=s hAaTro YD8dLq bEUv6g %2BXZw aYqtaq 0bqfl% 2Fg9IQ a4ajBk vP9nXo QUaueC m3YtLR FvZlgJ JJ8mAn HZtai3 5q0440 AC0Kqb HqNWaO kKiQtr MwF INTERFACE [facility] [address] [facility] [address], [place], [address], 06/15/2024 10:36:12 06/15/19 25 06/15/2024 XR, ankle , 3 or more view [email or web address]:/ [email or web address] ?Encry pted=s hAaTro YD8dLq bEUv6g %2BXZw aYqtaq 0bqfl% 2Fg9IQ a4ajBk vP9nXo QUaueC m3YtLR FvZlgJ JJ8mAn HZtai3 3d4351 AC0Kqb HqNWaO kKiQtr MwF INTERFACE [facility] [address], [place], [address], 06/15/2024 10:36:15 09/14/19 25 09/13/2024 XR, ankle , 3 or more view [email or web address]:/ [email or web address] ?Encry pted=s hAaTro YD8dLq bEUv6g %2BXZw aYqtaq 0bqfl% 2Fg9IQ a4ajBk vP9nXo QUaueC m3YtLR FvZlgJ [facility] HZtai3 3c3157 AC0Kla nSDVqK kKiQtr MwF INTERFACE [facility] [address], [place], [address], 09/13/2024 11:54:15 09/14/19 25 09/13/2024 XR, ankle , 3 or more view [email or web address]:/ [email or web address] ?Encry pted=s hAaTro YD8dLq bEUv6g %2BXZw aYqtaq 0bqfl% 2Fg9IQ a4ajBk vP9nXo QUaueC m3YtLR FvZlJ [address]ta[address] [address] AC0Kla nSDVqK kKiQtr MwF INTERFACE [facility] [address] [place] [address], [place], [address], 09/13/2024 11:54:16 09/14/19 25 09/13/2024 XR, ankle , 3 or more view [email or web address]:/ [email or web address] ?Encry pted=s hAaTro YD8dLq bEUv6g %2BXZw aYqtaq 0bqfl% 2Fg9IQ a4ajBk vP9nXo QUaueC m3YtLR FvZlgJ JJ8mAn HZtai3 1b0321 AC0Kla nSDVqK kKiQtr MwF INTERFACE [facility] [address], [place], [address], 09/13/2024 12:02:41 09/14/19 25 09/13/2024 XR, ankle , 3 or more view [email or web address]:/ [email or web address] ?Encry pted=s hALianeto YD8dLq bEUv6g %2BXZw aYqtaq 0bqfl% 2Fg9IQ a4ajBk vP9nXo QUaueC m3YtLR FvZlgJ JJ8mAn HZtai3 2k4631 AC0Kla nSDVqK kKiQtr MwF INTERFACE [facility] [address] [facility] [address], [place], [address], 09/13/2024 12:02:43 Result Notes Documentation Provider Name and Address Organization Details Recorded Time Xr, Ankle, 3 Or More View : [email or web address] Encrypted=udQwOdiPS7mFgfW Uv6g%2DHUsqTngla3asyu%2Fg 3NQk1hwNvmA8qDtABwurNx2Xz IISvJlkRUD3xBlGPqig27e593 9NV1UrmyiDEvLsTiBktRuX Not Available [facility] 04/26/2024 10:34: 44 Xr, Ankle, 3 Or More View : [email or web address] Encrypted=vsUxMbcEP0cAkhN Uv6g%4LFGtvMjhln9jvqu%2Fg 8HVh3gtHfbI9wBxXJsmgSj1Uo DLPlLrkOYP9oKmEIxme94k486 9PR6CfmwkDNkTrMzQpjAcL Not Available [facility] 04/26/2024 10:34: 47 Xr, Ankle, 3 Or More View : [email or web address] Encrypted=rwJjJauQG5vKvrR Uv6g%4KZWnnElxbr5tzka%2Fg 2CEi0gpPfqH2cGiXGosxUi1Wi VXFqIliRHZ9hFgKCoyu32w395 5LN3Dzu8cAWzFxTmMtrJvZ Not Available [facility] 05/17/2024 10:58: 19 Xr, Ankle, 3 Or More View : [email or web address] Encrypted=gvUsSufPD8tPhuI Uv6g%0HRXqcLkvsl6vbln%2Fg 4HEx2ghHayA4sMfLEmxzDi4Uw JPHtZqoATR0iYpWJyqo32d271 7OZ9Wrv8zJOfSlJuNgmHvX Not Available [facility] 05/17/2024 10:58: 22 Xr, Ankle, 3 Or More View : [email or web address] Encrypted=iaSuNjeXR3lRdtG Uv6g%9XNIqpSmhgt9bywt%2Fg 1FJv5plCapN5hJkDHhjnOr2Pl AWIkAjcDVR6gAhUCbnt66m866 8NC4HooSjVSgXrXeVtjCzM Not Available [facility] 06/15/2024 10:36: 13 Xr, Ankle, 3 Or More View : [email or web address] Encrypted=xiIpOtvBT7sZdoK Uv6g%7NTFqmUepro0hnfb%2Fg 5NHl6bwUmeU3nWfZKrabOw5Qy HOScWmhZNV7oGsPUjwj91o210 0WE6UjtFbCKmGlOuUshGqE Not Available [facility] 06/15/2024 10:36: 15 Xr, Ankle, 3 Or More View : [email or web address] Encrypted=ddVxYpaUB1oPyhC Uv6g%3MEHvbJgzrz7ayzi%2Fg 0SGc8hrTdgS7lQrBSvvyZb5Dr PSGhVisVRL8gSvWJnrp69y594 6CB4OiyqFDHwTqWxImbUeG Not Available [facility] 09/13/2024 11:54: 15 Xr, Ankle, 3 Or More View : [email or web address] Encrypted=kwSxBebTL3iPzpX Uv6g%0DAQndMighz8teym%2Fg 6SAt4phDofM2lKtGCsskUh7Zh OBEfWfoUKX0tNuXWija06o174 2ZU0UgkrTIOpKjSiDqxNfF Not Available [facility] 09/13/2024 11:54: 17 Xr, Ankle, 3 Or More View : [email or web address] Encrypted=koZdLegHZ5nAorY Uv6g%0MOGkqEvqea2omku%2Fg 9FFi1oyFhqL3qUsNQrghXy4Uu MRGxSgpMHV5eVlOXtpo04r920 4DC8MilsLYPdDzZpTjzXwJ Not Available [facility] 09/13/2024 12:02: 42 Xr, Ankle, 3 Or More View : [email or web address] Encrypted=huUnWhsSP5zKxvN Uv6g%6MSErhTonwh9isds%2Fg 9IVm0iiFwoO2dJqBHlbbAw4Ud MZRfPlrIVN9uNaBEkwu17i887 9VP4DegnVSXuYmYzVafGhI Not Available [facility] 09/13/2024 12:02: 43 Medical Equipment None Reported. [...] Details Last Updated DateTime 05/17/2024 152.4 cm [facility] 05/17/2024 10:33:53 Date Recorded Body height Provider Name an d Address Organization Details Last Updated DateTime 06/15/2024 152.4 cm [facility] 06/15/2024 10:18:57 Date Recorded Body height Provider Name an d Address Organization Details Last Updated DateTime 09/13/2024 152.4 cm [facility] 09/13/2024 11:47:37 Date Recorded Body height Provider Name an d Address Organization Details Last Updated DateTime 04/26/2024 152.4 cm [facility] 04/26/2024 10:22:14 Social History None recorded. [...] Kidney/Bladder Problems N Anemia N Heart Attack (CT) N Cholesterol Y Diabetes N Bleeding Disorder [...] ICD10 Code Diagnosis IMO Codes Diagnosis Note [id number] Cate Chen MD [facility] [address] [place] [address] 04/26/2024 10:10:07 05/18/2024 16:28:27 Closed fracture of right ankle 2555862259 [id number] S82.891A [id number] [facility] [address] [address] [place] [address] 05/17/2024 10:20:39 05/17/2024 11:41:43 Closed fracture of right ankle [id number] S82.891A [id number] MD CHRISTIAN Shelby [facility] [address] [place] [address] 06/15/2024 10:09:23 07/05/2024 06:52:27 Closed fracture of right ankle 0826659238 [id number] S82.891A [id number] MD CHRISTIAN Shelby [facility] [address] [place] [address] 09/13/2024 11:43:31 09/20/2024 12:58:04 Closed fracture of right ankle [id number] S82.891A [id number] Health Concerns Section Related Observation LastModified by Organization Detai ls LastModified Time None Recorded Concern Status LastModified by Organization Details LastModified Time None Recorded Advance Directives Directive None Recorded Payers Insurance Date Sequence Insurance Name Policy Number Policy Thomas Covered Member ID Thomas Member ID Guarantor Name 09/11/2024 1 [place]: [employer] Lashaun Turpin [id number] Lashaun Turpin 09/20/2024 2 [facility] [place] [place] INDEMNITY PLAN (INDEMNITY) [id number] Lashaun Turpin [id number] Lashaun Papi 06/06/2024 [facility] Lashaun Papi [id number] Lashaun Papi 09/11/2024 [facility] - SPECIALITY CLAIMS (MEDICARE DME REGION A) Lashaun Pastor Turpin [id number] Lashaun Papi OBGyn Episode No OBEpisode recorded.
--- OUTSIDE RECORDS SUMMARY | 2025-04-04 20:35 | XMS_ITS | Encounter Summary ---
Author Organization [employer] [facility] Address [address] [place] [address] Care Team Providers Care Server Name Role Phone Lauren Garcia MD Primary Care Provider + Encounter Details Date Type Department Care Team (Late st Contact Info) Description 06/25/2024 Lab Requisition [facility] - Main Lab [address] [facility] [place] [address] Lauren Garcia MD [address] [phone] Essential (primary) hypertension Social History Tobacco Use [...] mmol/L LAB CHEMISTRY METHOD 06/27/2024 1:02 PM [facility] CO2 21 21 - 32 mmol/L LAB CHEMISTRY METHOD 06/27/2024 1:02 PM [facility] Anion Gap 11 3 - 11 LAB CHEMISTRY METHOD 06/27/2024 1:02 PM [facility] Glucose 86 70 - 100 mg/dL LAB CHEMISTRY METHOD 06/27/2024 1:02 PM [facility] BUN 13 5 - 25 mg/dL LAB CHEMISTRY METHOD 06/27/2024 1:02 PM [facility] Creatinine 1.04 0.50 - 1.10 mg/dL LAB CHEMISTRY METHOD 06/27/2024 1:02 PM [facility] eGFR 52(L) >=60 mL/min/1. 73m2 LAB CHEMISTRY METHOD 06/27/2024 1:02 PM [facility] Comment:Calculation based on the Chronic Kidney Disease Epidemiology Collaboration (CKD-EPI) equation refit without adjustment for race. BUN/Creatinine Ratio 12.5 LAB CHEMISTRY METHOD 06/27/2024 1:02 PM [facility] Calcium 9.9 8.5 - 10.5 mg/dL LAB CHEMISTRY METHOD 06/27/2024 1:02 PM [facility] Blood Venous blood specimen / Unknown Venipuncture / Unknown 06/27/2024 7:52 AM EST 06/27/2024 11:50 AM EST us Lauren Garcia MD LAB BLOOD ORDERABLES Fin al Result [facility] [address] [place] [address], * (ABNORMAL) Complete blood count (06/27/2024 7:52 AM EST) WBC 5.2 4.8 - 10.8 K/mcL LAB HEMETOLOGY METHOD 06/27/2024 1:02 PM [facility] RBC 4.30 3.80 - 4.80 M/mcL LAB HEMETOLOGY METHOD 06/27/2024 1:02 PM [facility] Hemoglobin 11.0(L) 11.5 - 16.0 g/dL LAB HEMETOLOGY METHOD 06/27/2024 1:02 PM [facility] Hematocrit 38.7 35.0 - 47.0 % LAB HEMETOLOGY METHOD 06/27/2024 1:02 PM [facility] MCV 90.6 79.0 - 98.0 FL LAB HEMETOLOGY METHOD 06/27/2024 1:02 PM [facility] MCH 25.8(L) 27.0 - 32.0 pcg LAB HEMETOLOGY METHOD 06/27/2024 1:02 PM [facility] MCHC 28.4(L) 32.0 - 37.0 g/dL LAB HEMETOLOGY METHOD 06/27/2024 1:02 PM [facility] RDW 17.4(H) 11.0 - 15.0 % LAB HEMETOLOGY METHOD 06/27/2024 1:02 PM [facility] Platelets 330 130 - 400 K/mcL LAB HEMETOLOGY METHOD 06/27/2024 1:02 PM [facility] MPV 12.0(H) 7.0 - 11.0 FL LAB HEMETOLOGY METHOD 06/27/2024 1:02 PM [facility] NRBC 0.0 <1.0 % LAB HEMETOLOGY METHOD 06/27/2024 1:02 PM [facility] NRBC Absolute 0.00 <0.10 K/mcL LAB HEMETOLOGY METHOD 06/27/2024 1:02 PM [facility] Blood Venous blood specimen / Unknown Venipuncture / Unknown 06/27/2024 7:52 AM EST 06/27/2024 11:50 AM EST us Lauren Garcia MD LAB BLOOD ORDERABLES Fin al Result [facility] [address] [place] [address], documented in this encounter Visit Diagnoses Diagnosis Essential (primary) hypertension Unspecified essential hypertension documented in this encounter Additional Health Concerns Infection Onset Date Last 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
--- OUTSIDE RECORDS SUMMARY | 2025-04-04 20:35 | XMS_ITS | Encounter Summary ---
Author Organization [employer] [facility] Address [address] [place] [address] Care Team Providers Care Chartered Financial Analyst Name Role Phone Lauren Garcia MD Primary Care Provider + Encounter Details Date Type Department Care Team (Late st Contact Info) Description 05/13/[address] [facility] - Main Lab [address] [facility] [place] [address] Lauren Garcia MD [address] [phone] Chronic kidney disease, unspecified; Essential (primary) hypertension [...] LAB CHEMISTRY METHOD 05/16/2024 1:28 PM EST [facility] Potassium 4.1 3.5 - 5.5 mmol/L LAB CHEMISTRY METHOD 05/16/2024 1:28 PM EST [facility] Chloride 109 96 - 110 mmol/L LAB CHEMISTRY METHOD 05/16/2024 1:28 PM EST [facility] CO2 25 21 - 32 mmol/L LAB CHEMISTRY METHOD 05/16/2024 1:28 PM [facility] Anion Gap 8 3 - 11 LAB CHEMISTRY METHOD 05/16/2024 1:28 PM [facility] Glucose 83 70 - 100 mg/dL LAB CHEMISTRY METHOD 05/16/2024 1:28 PM [facility] BUN 24 5 - 25 mg/dL LAB CHEMISTRY METHOD 05/16/2024 1:28 PM [facility] Creatinine 1.17(H) 0.50 - 1.10 mg/dL LAB CHEMISTRY METHOD 05/16/2024 1:28 PM [facility] eGFR 45(L) >=60 mL/min/1. 73m2 LAB CHEMISTRY METHOD 05/16/2024 1:28 PM [facility] Comment:Calculation based on the Chronic Kidney Disease Epidemiology Collaboration (CKD-EPI) equation refit without adjustment for race. BUN/Creatinine Ratio 20.5 LAB CHEMISTRY METHOD 05/16/2024 1:28 PM [facility] Calcium 9.8 8.5 - 10.5 mg/dL LAB CHEMISTRY METHOD 05/16/2024 1:28 PM [facility] Blood Venous blood specimen / Unknown Venipuncture / Unknown 05/16/2024 6:18 AM EST 05/16/2024 10:47 AM EST us Lauren Garcia MD LAB BLOOD ORDERABLES Fin al Result [facility] [address] [place] [address], * (ABNORMAL) Complete blood count (05/16/2024 6:18 AM EST) WBC 6.2 4.8 - 10.8 [facility] 05/16/2024 1:43 PM [facility] RBC 4.00 3.80 - 4.80 M/mcL LAB HEMETOLOGY METHOD 05/16/2024 1:43 PM [facility] Hemoglobin 10.0(L) 11.5 - 16.0 g/dL LAB HEMETOLOGY METHOD 05/16/2024 1:43 PM [facility] Hematocrit 34.6(L) 35.0 - 47.0 % LAB HEMETOLOGY METHOD 05/16/2024 1:43 PM [facility] MCV 87.6 79.0 - 98.0 FL LAB HEMETOLOGY METHOD 05/16/2024 1:43 PM [facility] MCH 25.3(L) 27.0 - 32.0 pcg LAB HEMETOLOGY METHOD 05/16/2024 1:43 PM [facility] MCHC 28.9(L) 32.0 - 37.0 g/dL LAB HEMETOLOGY METHOD 05/16/2024 1:43 PM [facility] RDW 14.5 11.0 - 15.0 % LAB HEMETOLOGY METHOD 05/16/2024 1:43 PM [facility] Platelets 212 130 - 400 K/mcL LAB HEMETOLOGY METHOD 05/16/2024 1:43 PM [facility] MPV 12.0(H) 7.0 - 11.0 FL LAB HEMETOLOGY METHOD 05/16/2024 1:43 PM [facility] NRBC 0.0 <1.0 % LAB HEMETOLOGY METHOD 05/16/2024 1:43 PM [facility] NRBC Absolute 0.00 <0.10 K/mcL LAB HEMETOLOGY METHOD 05/16/2024 1:43 PM [facility] Blood Venous blood specimen / Unknown Venipuncture / Unknown 05/16/2024 6:18 AM EST 05/16/2024 10:47 AM EST us Lauren Garcia MD LAB BLOOD ORDERABLES Fin al Result [facility] [address] [place] [address], documented in this encounter Visit Diagnoses Diagnosis Chronic kidney disease, unspecified Essential (primary) hypertension Unspecified essential hypertension documented in this encounter Additional Health Concerns Infection Onset Date Last Indicated Resolved Time 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
--- OUTSIDE RECORDS SUMMARY | 2025-04-04 20:35 | XMS_ITS | Encounter Summary ---
Author Organization [facility] Address [address] [place] [address] Care Team Providers Care Sales Assistants And Salespersons Name Role Phone Lauren Garcia MD Primary Care Provider + Encounter Details Date Type Department Care Team (Late st Contact Info) Description 06/19/2024 Lab Requisition [facility] - Main Lab [address] [facility] [place] [address] Lauren Garcia MD [address] [phone] Essential (primary) hypertension Social History Tobacco Use [...] LAB CHEMISTRY METHOD 06/20/2024 11:15 AM EST [facility] Potassium 4.0 3.5 - 5.5 mmol/L LAB CHEMISTRY METHOD 06/20/2024 11:15 AM EST [facility] Chloride 106 96 - 110 mmol/L LAB CHEMISTRY METHOD 06/20/2024 11:15 AM [facility] CO2 27 21 - 32 mmol/L LAB CHEMISTRY METHOD 06/20/2024 11:15 AM [facility] Anion Gap 6 3 - 11 LAB CHEMISTRY METHOD 06/20/2024 11:15 AM [facility] Glucose 83 70 - 100 mg/dL LAB CHEMISTRY METHOD 06/20/2024 11:15 AM [facility] BUN 20 5 - 25 mg/dL LAB CHEMISTRY METHOD 06/20/2024 11:15 AM [facility] Creatinine 1.05 0.50 - 1.10 mg/dL LAB CHEMISTRY METHOD 06/20/2024 11:15 AM [facility] eGFR 52(L) >=60 mL/min/1. 73m2 LAB CHEMISTRY METHOD 06/20/2024 11:15 AM [facility] Comment:Calculation based on the Chronic Kidney Disease Epidemiology Collaboration (CKD-EPI) equation refit without adjustment for race. BUN/Creatinine Ratio 19.0 LAB CHEMISTRY METHOD 06/20/2024 11:15 AM [facility] Calcium 9.5 8.5 - 10.5 mg/dL LAB CHEMISTRY METHOD 06/20/2024 11:15 AM [facility] Blood Venous blood specimen / Unknown Venipuncture / Unknown 06/20/2024 6:51 AM EST 06/20/2024 10:15 AM EST us Lauren Garcia MD LAB BLOOD ORDERABLES Fin al Result [facility] [address] [place] [address], * (ABNORMAL) Complete blood count (06/20/2024 6:51 AM EST) WBC 7.0 4.8 - 10.8 K/mcL LAB HEMETOLOGY METHOD 06/20/2024 10:51 AM [facility] RBC 3.80 3.80 - 4.80 M/mcL LAB HEMETOLOGY METHOD 06/20/2024 10:51 AM [facility] Hemoglobin 9.8(L) 11.5 - 16.0 g/dL LAB HEMETOLOGY METHOD 06/20/2024 10:51 AM [facility] Hematocrit 33.0(L) 35.0 - 47.0 % LAB HEMETOLOGY METHOD 06/20/2024 10:51 AM [facility] MCV 86.4 79.0 - 98.0 FL LAB HEMETOLOGY METHOD 06/20/2024 10:51 AM [facility] MCH 25.7(L) 27.0 - 32.0 pcg LAB HEMETOLOGY METHOD 06/20/2024 10:51 AM [facility] MCHC 29.7(L) 32.0 - 37.0 g/dL LAB HEMETOLOGY METHOD 06/20/2024 10:51 AM [facility] RDW 16.4(H) 11.0 - 15.0 % LAB HEMETOLOGY METHOD 06/20/2024 10:51 AM [facility] Platelets 211 130 - 400 K/mcL LAB HEMETOLOGY METHOD 06/20/2024 10:51 AM [facility] MPV 12.3(H) 7.0 - 11.0 FL LAB HEMETOLOGY METHOD 06/20/2024 10:51 AM [facility] NRBC 0.0 <1.0 % LAB HEMETOLOGY METHOD 06/20/2024 10:51 AM [facility] NRBC Absolute 0.00 <0.10 K/mcL LAB HEMETOLOGY METHOD 06/20/2024 10:51 AM [facility] Blood Venous blood specimen / Unknown Venipuncture / Unknown 06/20/2024 6:51 AM EST 06/20/2024 10:15 AM EST us Lauren Garcia MD LAB BLOOD ORDERABLES Fin al Result [facility] ([facility] [address] [place] [address], documented in this encounter Visit Diagnoses Diagnosis Essential (primary) hypertension Unspecified essential hypertension documented in this encounter Additional Health Concerns Infection Onset Date Last Indicated Resolved Time 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
--- OUTSIDE RECORDS SUMMARY | 2025-04-04 20:35 | XMS_ITS | Encounter Summary ---
Author Organization [email or web address] Address [address] [place] [address] Care Team Providers Care Band Bias Machine Operator Name Role Phone Lauren Garcia MD Primary Care Provider + Encounter Details Date Type Department Care Team (Late st Contact Info) Description 06/06/[address] [facility] - Main Lab [address] [facility] [place] [address] Lauren Garcia MD [address] [facility] [address] [place], [place] [phone] Vitamin D deficiency, unspecified; Essential (primary) hypertension [...] * (ABNORMAL) Magnesium (06/06/2024 8:50 AM EST) [facility] Magnesium 1.6(L) 1.9 - 2.6 mg/dL LAB CHEMISTRY METHOD 06/06/2024 4:[address] [facility] Blood Venous blood specimen / Unknown Venipuncture / Unknown 06/06/2024 8:50 AM EST 06/06/2024 11:43 AM EST Lauren Garcia MD LAB BLOOD ORDERABLES Fin al Result Performing Organization Address City/[facility]/ZIP Co de Phone Number [facility] [address] [place] [address], * Folate (06/06/2024 8:50 AM EST) [facility] Folate 8.9 2.8 - 17.0 ng/ml LAB CHEMISTRY METHOD 06/06/2024 4:[address] [facility] Blood Venous blood specimen / Unknown Venipuncture / Unknown 06/06/2024 8:50 AM EST 06/06/2024 11:43 AM EST Lauren Garcia MD LAB BLOOD ORDERABLES Fin al Result [facility] [address] [place] [address], * Vitamin B12 (06/06/2024 8:50 AM EST) [facility] Vitamin B-12 678 250 - 900 pcg/mL LAB CHEMISTRY METHOD 06/06/2024 4:[address] [facility] Blood Venous blood specimen / Unknown Venipuncture / Unknown 06/06/2024 8:50 AM EST 06/06/2024 11:43 AM EST Lauren Garcia MD LAB BLOOD ORDERABLES Fin al Result Performing Organization Address [facility]/ZIP Co de Phone Number [facility] [address] [place] [address], [place] [phone] * Vitamin D 25 hydroxy (06/06/2024 8:50 AM EST) Pathologist [facility] Vit D, 25-Hydroxy 36.0 30.0 - 80.0 ng/mL LAB CHEMISTRY METHOD 06/06/2024 4:[address] [facility] Blood Venous blood specimen / Unknown Venipuncture / Unknown 06/06/2024 8:50 AM EST 06/06/2024 11:43 AM EST Lauren Garcia MD LAB BLOOD ORDERABLES Fin al Result Performing Organization Address [facility] Co de Phone Number [facility] [address] [place] [address], [place] [phone] * (ABNORMAL) Comprehensive metabolic panel (06/06/2024 8:50 AM EST) [facility] Sodium 138 133 - 145 mmol/L LAB CHEMISTRY METHOD 06/06/2024 5:[address] [facility] Potassium 4.3 3.5 - 5.5 mmol/L LAB CHEMISTRY METHOD 06/06/2024 5:[address] [facility] Comment:Hemolysis present Chloride 106 96 - 110 mmol/L LAB CHEMISTRY METHOD 06/06/2024 5:[address] [facility] CO2 20(L) 21 - 32 mmol/L LAB CHEMISTRY METHOD 06/06/2024 5:[address] [facility] Anion Gap 12(H) 3 - 11 LAB CHEMISTRY METHOD 06/06/2024 5:[address] [facility] Glucose 104(H) 70 - 100 mg/dL LAB CHEMISTRY METHOD 06/06/2024 5:[address] [facility] BUN 32(H) 5 - 25 mg/dL LAB CHEMISTRY METHOD 06/06/2024 5:[address] [facility] Comment:Results verified by repeat testing Creatinine 2.05(H) 0.50 - 1.10 mg/dL LAB CHEMISTRY METHOD 06/06/2024 5:[address] [facility] Comment:Results verified by repeat testing eGFR 23(L) >=60 mL/min/1. 73m2 LAB CHEMISTRY METHOD 06/06/2024 5:[address] [facility] Comment:Calculation based on the Chronic Kidney Disease Epidemiology Collaboration (CKD-EPI) equation refit without adjustment for race. BUN/Creatinine Ratio 15.6 LAB CHEMISTRY METHOD 06/06/2024 5:[address] [facility] Calcium 9.5 8.5 - 10.5 mg/dL LAB CHEMISTRY METHOD 06/06/2024 5:[address] [facility] AST (SGOT) 29 10 - 42 unit/L LAB CHEMISTRY METHOD 06/06/2024 5:[address] [facility] Comment:Hemolysis present ALT (SGPT) 19 10 - 60 unit/L LAB CHEMISTRY METHOD 06/06/2024 5:[address] [facility] Alkaline Phosphatase 96 42 - 121 unit/L LAB CHEMISTRY METHOD 06/06/2024 5:[address] [facility] Total Protein 6.2 6.0 - 8.0 g/dL LAB CHEMISTRY METHOD 06/06/2024 5:[address] [facility] Albumin 2.8(L) 3.2 - 5.0 g/dL LAB CHEMISTRY METHOD 06/06/2024 5:[address] [facility] Total Bilirubin 1.2 0.0 - 1.4 mg/dL LAB CHEMISTRY METHOD 06/06/2024 5:[address] [facility] Blood Venous blood specimen / Unknown Venipuncture / Unknown 06/06/2024 8:50 AM EST 06/06/2024 11:43 AM EST us Lauren Garcia MD LAB BLOOD ORDERABLES Fin al Result [facility] [address] [place] [address], * (ABNORMAL) Complete blood count (06/06/2024 8:50 AM EST) [facility] WBC 8.2 4.8 - 10.8 K/mcL LAB HEMETOLOGY METHOD 06/06/2024 12:[address] [facility] RBC 4.40 3.80 - 4.80 M/mcL LAB HEMETOLOGY METHOD 06/06/2024 12:[address] [facility] Hemoglobin 11.2(L) 11.5 - 16.0 g/dL LAB HEMETOLOGY METHOD 06/06/2024 12:[address] [facility] Hematocrit 38.7 35.0 - 47.0 % LAB HEMETOLOGY METHOD 06/06/2024 12:[address] [facility] MCV 89.0 79.0 - 98.0 FL LAB HEMETOLOGY METHOD 06/06/2024 12:[address] [facility] MCH 25.7(L) 27.0 - 32.0 pcg LAB HEMETOLOGY METHOD 06/06/2024 12:[address] [facility] MCHC 28.9(L) 32.0 - 37.0 g/dL LAB HEMETOLOGY METHOD 06/06/2024 12:[address] [facility] RDW 16.6(H) 11.0 - 15.0 % LAB HEMETOLOGY METHOD 06/06/2024 12:[address] [facility] Platelets 195 130 - 400 [...] al Result 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
[2025-04-04 21:48] VITALS: BP 144/66; PULSE 88; RESP 16; TEMP 36.4; O2SAT 95
[2025-04-05 01:38] VITALS: BP 140/64; PULSE 88; RESP 16; TEMP 36.4; O2SAT 95
== END 2025-04-05 01:40 | disposition home or self-care (01) ==
PROVIDERS: Emergency Provider Student in an Organized Health Care Education/Training Program
DX: M25.551 Pain in right hip (principal); M54.2 Cervicalgia; Z91.81 History of falling; I10 Essential (primary) hypertension; E78.5 Hyperlipidemia, unspecified
CPT/HCPCS: 70450; 72125; 73502; 99284

== ENCOUNTER → 2025-04-04 20:06 | Outpatient (BNV) | payer MEDICARE, OTHER, SELFPAY | PROVIDERS: Emergency Provider Student in an Organized Health Care Education/Training Program; Visit Provider Student in an Organized Health Care Education/Training Program | DX: M47.812 Spondylosis without myelopathy or radiculopathy, cervical region (principal); M99.61 Osseous and subluxation stenosis of intervertebral foramina of cervical region; Z04.3 Encounter for examination and observation following other accident; M16.11 Unilateral primary osteoarthritis, right hip | CPT/HCPCS: 70450; 72125; 73502 ==

== ENCOUNTER 2025-04-07 08:17 | Emergency (ER) | payer MEDICARE, OTHER, SELFPAY ==
[2025-04-07] VITALS (9 sets, daily range): BP systolic 145–211; BP diastolic 60–99; PULSE 82–86; RESP 16–18; TEMP 36.2–36.4; O2SAT 93–99; BMI 32.8
--- NOTE | ~2025-04-07 | CT_ITS ---
EXAMINATION: CT CERVICAL SPINE WITHOUT CONTRAST CLINICAL INFORMATION: Unwitnessed fall COMPARISON: CT cervical spine 04/04/2025 TECHNIQUE: Axial imaging. Sagittal and coronal reconstructions. This CT examination was performed using dose optimization techniques as appropriate, variously including the following: *Automated exposure control *Adjustment of mA and/or kV according to patient size (this includes techniques or standardized protocols for targeted exams where dose is matched to indication/reason for exam; i.e. extremities or head) *Use of iterative reconstruction technique FINDINGS: Craniocervical and atlantoaxial articulation is maintained. Predens space is maintained. Vertebral body alignment is within normal limits. No evidence of acute fracture or traumatic subluxation. Moderate multilevel spondylosis with multilevel disc space narrowing and marginal osteophytes, more prominent at C4-5, C6-7. Posterior osteophytes at multiple levels protruding into the central canal. Multilevel facet degeneration. Diffuse osteopenia. No prevertebral soft tissue swelling. Coarse calcifications in the right lobe of the thyroid. No consolidation or effusion in the lung apices. CT/CT cervical spine wo IV con IMPRESSION: No CT evidence of acute osseous findings. Moderate multilevel spondylosis. Fleischner guidelines were followed. Electronically signed by: Robert Thorne MD 04/07/2025 10:46 AM EST
--- NOTE | ~2025-04-07 | CT_ITS ---
EXAMINATION: CT HEAD WITHOUT CONTRAST CLINICAL INFORMATION: Unwitnessed fall, dementia. COMPARISON: 04/04/2025, 02/16/2025. TECHNIQUE: Contiguous axial imaging was performed from the skull base to vertex without intravenous administration of contrast. This CT examination was performed using dose optimization techniques as appropriate, variously including the following: *Automated exposure control *Adjustment of mA and/or kV according to patient size (this includes techniques or standardized protocols for targeted exams where dose is matched to indication/reason for exam; i.e. extremities or head) *Use of iterative reconstruction technique FINDINGS: There is no evidence of intracranial hemorrhage or extra-axial fluid collection. There is no mass effect, or edema. No CT evidence of acute territorial infarct. Ventricles, sulci, and cisterns are diffusely mildly prominent, in keeping with age-appropriate cerebral and cerebellar volume loss. No hydrocephalus. No midline shift. Negative hyperdense MCA sign. Negative insular ribbon sign. Patchy periventricular and deep white matter hypoattenuation is consistent with moderate small vessel ischemic changes. Normal pituitary. Atheromatous calcification of the bilateral carotid siphons and V4 segments vertebral arteries bilaterally. Globes and orbital contents image normally. There are bilateral lens replacements. Calcification of the trochlea of the superior oblique muscle is noted bilaterally, finding which can be associated with diabetes. No extracranial soft tissue abnormalities. The paranasal sinuses, mastoid air cells, and tympanic cavities are normally aerated. No suspicious bony abnormalities. There are no acute fractures evident. Moderate degenerative changes of the left TM joint noted. CT/CT head/brain wo IV con IMPRESSION: No acute intracranial abnormalities. No acute fracture evident. Electronically signed by: Florin Ortega MD 04/07/2025 10:[address] [facility]
--- NOTE | ~2025-04-07 | XR_ITS ---
EXAMINATION: XR SHOULDER, LEFT CLINICAL INFORMATION: fall, pain. COMPARISON: 02/16/2025. TECHNIQUE: Two views of the left shoulder. FINDINGS: Mild diffuse osteopenia. No fracture, dislocation, or suspicious bone lesion. Normal alignment. The glenohumeral joint demonstrates mild degenerative arthritis. The AC joint demonstrates mild degenerative spurring. There is a neutral lateral acromion. No undersurface spurring. The subacromial space is preserved. Remainder of the soft tissue and bony structures appear normal. XR/XR shoulder LT min 2V IMPRESSION: 1. No acute bony abnormality of the left shoulder. Electronically signed by: Florin Ortega MD 04/07/2025 09:33 AM [facility]
--- NOTE | ~2025-04-07 | XR_ITS ---
EXAMINATION: XR BILATERAL HIPS WITH AP PELVIS CLINICAL INFORMATION: L and R hip pain s/p fall COMPARISON: April 04, 2025. TECHNIQUE: AP view pelvis. AP and oblique views both hips. FINDINGS: No acute cortical disruption, pelvis. Degenerative changes in the symphysis pubis and sacroiliac joints. No acute cortical disruption or gross malalignment in either coxofemoral joint. Vascular calcifications. Osteopenia versus osteoporosis. Spondylosis L4-5 and L5-S1 Liver shadow box the superior margin of the right iliac crest. XR/XR hip BI w PEL1V IMPRESSION: No acute fracture or dislocation in either hip. No acute fracture, bony pelvis.. Electronically signed by: Xavi Varner MD 04/07/2025 09:33 AM [facility]
--- NOTE | 2025-04-07 08:35 | ECG_ITS ---
Test Reason : unwitnessfall Blood Pressure : */* mmHG Vent. Rate : 79 BPM Atrial Rate : 79 BPM P-R Int : 160 ms QRS Dur : 74 ms QT Int : 374 ms P-R-T Axes : 11 -11 -6 degrees QTcB Int : 428 ms Normal sinus rhythm Normal ECG When compared with ECG of 16-Feb-2025 17:00, No significant change was found Referred By: Marcia Freitas Electronically Signed By: KATI BEDOYA
--- NOTE | 2025-04-07 08:37 | ED.FALL ---
HPI - Fall General Chief Complaint: Fall Stated Complaint: unwit fall, no LOC, L shoulder pain Time Seen by Provider: 04/07/25 08:20 Source: patient, EMS, RN notes reviewed and old records reviewed Mode of arrival: EMS History of Present Illness ED Provider: Marcia Freitas PA-C HPI Narrative: 89-year-old female with a past medical history of Alzheimer's dementia, GERD, HTN, presenting to the ED via EMS from [facility] s/p unwitnessed fall this morning. Patient does not remember events, unknown head trauma or LOC. Patient reports left shoulder and left hip pain. Unknown if patient has ambulated since incident. Denies other complaints at present. Unknown anticoagulation. Denies recent illness. Remaining history limited Related Data Home Medications ?Medication ?Instructions ?Recorded ?Confirmed ascorbic acid (vitamin C) 250 mg 250 mg PO DAILY 11/13/24 04/07/25 tablet (Vitamin C) aspirin 81 mg tablet,delayed 81 mg PO DAILY 11/13/24 04/07/25 release atorvastatin 40 mg tablet 40 mg PO BEDTIME 11/13/24 04/07/25 cholecalciferol (vitamin D3) 50 50 mcg PO DAILY 11/13/24 04/07/25 mcg (2,000 unit) capsule (Vitamin D3) hydrochlorothiazide 12.5 mg tablet 12.5 mg PO DAILY 11/13/24 04/07/25 levothyroxine 50 mcg tablet 50 mcg PO DAILY@0600 11/13/24 04/07/25 lisinopril 10 mg tablet 15 mg PO DAILY 11/13/24 04/07/25 sertraline 50 mg tablet 75 mg PO DAILY 11/13/24 04/07/25 magnesium hydroxide 400 mg/5 mL 30 ml PO DAILY PRN Constipation 11/14/24 04/07/25 oral suspension (Milk of Magnesia) melatonin 3 mg tablet 6 mg PO BEDTIME 11/14/24 04/07/25 rivaroxaban 20 mg tablet (Xarelto) 20 mg PO DAILY@0730 11/14/24 04/07/25 sennosides 8.6 mg tablet (senna) 8.6 mg PO BID PRN Constipation 11/14/24 04/07/25 ferrous gluconate 324 mg (38 mg 324 mg PO DAILY 12/13/24 04/07/25 iron) tablet quetiapine 50 mg tablet 50 mg PO TID@0700,1200,1600 12/13/24 04/07/25 trazodone 50 mg tablet 12.5 mg PO DAILY@1600 12/13/24 04/07/25 zinc oxide 13 % topical cream 1 appl topical BID 12/13/24 04/07/25 (Desitin Daily Defense) Lactobacillus acidophilus 500 500 mmu cells PO DAILY 02/09/25 04/07/25 million cell capsule cephalexin 250 mg tablet 250 mg PO MOWEFR@0900 02/09/25 04/07/25 cholecalciferol (vitamin D3) 1,250 1,250 mcg PO QMONTH 02/09/25 04/07/25 mcg (50,000 unit) tablet loperamide 2 mg tablet 2 mg PO Q6H PRN Loose Stool 02/09/25 04/07/25 omeprazole 20 mg capsule,delayed 20 mg PO BID@0630,1630 02/09/25 04/07/25 release Previous Rx's ?Medication ?Instructions ?Recorded sulfamethoxazole 800 1 tab PO BID #10 tabs 02/13/25 mg-trimethoprim 160 mg tablet (Bactrim DS) Allergies Allergy/AdvReac Type Severity Reaction Status Date / Time No Known Allergies Allergy Verified 04/07/25 08:30 Review of Systems Review of Systems: Yes all other systems are reviewed and are negative Constitutional: Constitutional: Reports as per [facility] Past Medical History Attestation statement: The following information was validated with the patient. Source: old records reviewed Medical History Dementia with agitation Aggressive behavior Hiatal hernia History of DVT (deep vein thrombosis) HTN (hypertension) Hypothyroid Recurrent UTI HLD (hyperlipidemia) Dementia Surgical History History of ankle surgery H/O colonoscopy Social History Social History Household Members: Unknown / Unable to assess Housing: Unknown / Unable to assess Housing Other:: [facility] Are you a primary home health aide caregiver to a significant other at home: No Do you presently have visiting nurse or other home services: Yes Alcohol intake: former Patient Tobacco Use Status: Former Tobacco user Tobacco use type: Cigarette Smoked in Last 30 Days: No e-Cigarette/Vaping Use: Former Use Use of substances other than those prescribed or required for medical reasons: No Advance Directives: Yes Advance Directives on File: Yes Advance Directives Date on File: 11/21/24 service: No Physical Exam Vital Signs: Vital Signs: Last Vital Signs Temp 97.6 F 04/07/25 12:56 Pulse 83 04/07/25 15:34 Resp 18 04/07/25 15:34 BP 211/93 H 04/07/25 15:34 Pulse Ox 98 04/07/25 15:34 O2 Del Method Room Air 04/07/25 15:34 BMI result Body Mass Index 32.8 Const: General: cooperative, healthy appearing and no acute distress Orientation/consciousness: patient oriented x3 (but does not know year (baseline)) HEENT: Head: Yes normal to inspection and Yes atraumatic Ears: hearing grossly normal bilaterally General nose exam: Normal external nose present Face and sinus: Yes normal facial exam Eyes: General: appearance normal, both eyes and all related structures Pupils: Equal, round and reactive pupils present EOM: EOMs intact bilaterally Neck: Other: + lower cervical paraspinal tenderness Neck: Yes normal visual inspection and Yes no meningeal signs Resp: Effort & Inspection: normal respiratory effort and no respiratory distress Auscultation: clear to auscultation bilaterally Cardio: Rate: regular rate Heart sounds: S1 normal heart sound present and S2 normal heart sound present GI: Inspection: Yes normal to inspection Palpation (GI): Soft to palpation, nontender, no guarding and not rigid Back/Spine/Pelvis: Other: No midline cervical/thoracic/lumbar spinous tenderness/step-off or deformity Skin: Rashes: no rashes Wounds: no wounds Neuro: General: patient oriented x3 (but does not know year (baseline)), tone normal, moves all extremities, no meningeal signs, no focal motor deficits and CN's II-XI intact bilaterally Cranial nerves: Yes CN's II-XII intact bilaterally and Yes Equal, round and reactive pupils present Motor exam (neuro): 5/5 motor strength present throughout Extrem: Other: Left shoulder without noted deformity. Mildly tender to palpation. ROM intact without discomfort. Neurovascularly intact distally Pelvis stable. Left hip with mild tenderness. Limited ROM to LLE due to pain. Neurovascularly intact distally. 2+ bilateral LE pitting edema General: Yes normal to inspection Course Course Course Narrative: -1120--labs reassuring. Troponin negative. CT head/brain wo IV con IMPRESSION: No acute intracranial abnormalities. No acute fracture evident. CT cervical spine wo IV con IMPRESSION: No CT evidence of acute osseous findings. Moderate multilevel spondylosis. Fleischner guidelines were followed. XR shoulder LT min 2V IMPRESSION: 1. No acute bony abnormality of the left shoulder. XR hip BI w PEL1V IMPRESSION: No acute fracture or dislocation in either hip. No acute fracture, bony pelvis.. > will obtain PT/case management eval. RN spoke with patient's son who states this is the 3rd fall and they are interested in getting patient more help at her facility. Physician observation initiated at 11:22 as patient needs more time for PT/case management eval -patient will be returning to [facility] at 6:30 this evening > physical therapy recommended short-term rehab. ED care transferred to Dr. Conley pending transfer Medications Administered Discontinued Medications Generic Name Dose Route Start Last Admin Trade Name Freq PRN Reason Stop Dose Admin Hydrochlorothiazide 12.5 mg 04/07/25 13:40 04/07/25 13:58 Hydrochlorothiazide 12.5 Mg Tablet PO 04/07/25 13:41 12.5 mg ONCE ONE Administration Protocol Lisinopril 10 mg 04/07/25 13:40 04/07/25 13:58 Lisinopril 10 Mg Tablet PO 04/07/25 13:41 10 mg ONCE ONE Administration Protocol Medical Decision Making Medical Decision Making MDM Narrative: 89-year-old female with a past medical history of Alzheimer's dementia, GERD, HTN, presenting to the ED via EMS from [facility] s/p unwitnessed fall this morning. On exam vital signs stable, NAD, nontoxic appearing, A&O x3 however pleasantly confused with baseline dementia. No evidence of trauma. No midline spinous tenderness. Physical exam as noted above. Concern for metabolic/infectious etiologies vs fractures. Unknown downtime. Concern for rhabdomyolysis. Lower suspicion for dissection/ACS or acute CVA at this time Plan: EKG, labs, UA, head/C-spine CT, x-rays, re-evaluate Please refer to course for remaining clinical decision making, interpretation of labs/imaging results, and discussions with consultants and/or family members. Differential Diagnosis Differential Diagnoses: The differential diagnosis associated with the presentation includes As above Admission/Observation Consideration of admission/observation: Escalation of care including admission/observation considered Lab Data MDM Lab Attestation statement: I reviewed the patient's lab results. 04/07/25 08:53 04/07/25 08:53 Labs: Lab Results 04/07/25 04/07/25 Range/Units 08:53 12:53 WBC 6.2 (4.8-10.8) X10*3/uL RBC 4.25 D (4.20-5.50) X10*6/uL Hgb 12.2 D (12.0-16.0) g/dl Hct 40.3 D (37.0-47.0) % MCV 94.8 (80.0-98.0) fL MCH 28.7 (27.0-33.0) pg MCHC 30.3 L (31.0-35.0) g/dl RDW 13.5 (11.0-16.0) % Plt Count 193 (160-400) X10*3/uL MPV 10.9 (9.4-12.3) fL Immature Gran % (Auto) 0.2 (0.0-0.4) % Neut % (Auto) 78.1 H (45-73) % Lymph % (Auto) 12.5 L (20-40) % [place] % (Auto) 6.5 (2-11) % Eos % (Auto) 1.9 (0-4) % Baso % (Auto) 0.8 (0-2) % Lymph # (Auto) 0.8 L (1.2-4.9) X10*3/uL [place] # (Auto) 0.4 (0.1-1.2) X10*3/uL Eos # (Auto) 0.1 (0.0-0.4) X10*3/uL Baso # (Auto) 0.1 (0.0-0.2) X10*3/uL Abs Immat Gran (auto) 0.01 (0.00-0.03) X10*3/uL Absolute Neuts (auto) 4.8 (2.0-8.3) x10*3/uL Absolute Nucleated RBC 0.000 (0.0-0.012) X10*3/uL Nucleated RBC % (auto) 0.0 (0.0-0.2) /100WBC Sodium 142 (135-145) mmol/L Potassium 4.3 (3.3-5.1) mmol/L Chloride 109 H (96-108) mmol/L Carbon Dioxide 26 (22-29) mmol/L Anion Gap 11 L (12-20) BUN 25 H (9-16) mg/dL Creatinine 0.95 (0.5-1.4) mg/dL Estim Creat Clear Calc 37.3 Estimated GFR 56 Random Glucose 111 (60-115) mg/dL Calcium 10.4 H D (8.4-10.2) mg/dL Magnesium 1.6 (1.6-2.6) mg/dL Total Bilirubin 0.7 (0.0-1.0) mg/dL Direct Bilirubin 0.2 (0.0-0.5) mg/dL AST 21 (5-31) U/L ALT 12 (0-31) U/L Alkaline Phosphatase 97 (39-117) U/L Total Creatine Kinase 120 (26-140) U/L Troponin I High Sens 4.2 (<3.5-17.0) ng/L NT-Pro-B Natriuret Pep 151.4 (<300) pg/mL Total Protein 7.3 (6.5-8.0) g/dL Albumin 4.1 (3.5-5.0) g/dL Urine Color Yellow Urine Appearance Hazy Urine pH 6.0 (5.0-9.0) Ur Specific [place] 1.020 (1.005-1.025) Urine Protein Trace (Neg-Trace) mg/dL Urine Glucose (UA) Negative (Negative) mg/dL Urine Ketones Negative (Negative) mg/dL Urine Blood Negative (Negative) Urine Nitrite Negative (Negative) Ur Leukocyte Esterase Trace H (Negative) Urine RBC 0-2 (0-2) /HPF Urine WBC 0-5 (0-5) /HPF Ur Squamous Epith Cells 3-5 (0-2) /HPF Other Crystals Present Urine Bacteria 1+ (None Seen) Hyaline Casts 0-2 (0-2) /LPF Urine Yeast Present Independent Interpretation I performed an independent interpretation of an: EKG, Plain X-Ray and CT Scan Radiology Impression Discussion of test interpretation with radiology: I have reviewed the radiologist's reading. Independent Historian Clinical information obtained from an independent historian. History obtained from or confirmed by: EMS External Record Review External record reviewed: Inpatient record, Office record, Outpatient record, Prior outpatient labs, Prior outpatient radiology, Primary care record and Outside ED record Tests considered The following testing was considered but not selected: As above Prescription Management I considered prescription management with: Pain Medication Chronic Conditions Patient?s care impacted by: Hypertension and Other (Alzheimer's dementia) Social Determinants Patient?s care significantly limited by Social Determinants of Health including: Other Social Determinant of Health Discharge Plan Discharge Clinical Impression: Unwitnessed fall Patient Disposition: Home, Self-Care Prescriptions: No Action atorvastatin 40 mg tablet 40 mg PO BEDTIME aspirin 81 mg tablet,delayed release (DR/EC) 81 mg PO DAILY levothyroxine 50 mcg tablet 50 mcg PO DAILY@0600 lisinopril 10 mg tablet 15 mg PO DAILY hydrochlorothiazide 12.5 mg tablet 12.5 mg PO DAILY ascorbic acid (vitamin C) [Vitamin C] 250 mg Tablet 250 mg PO DAILY sertraline 50 mg tablet 75 mg PO DAILY cholecalciferol (vitamin D3) [Vitamin D3] 50 mcg (2,000 unit) Capsule 50 mcg PO DAILY sennosides [senna] 8.6 mg Tablet 8.6 mg PO BID PRN (Reason: Constipation) magnesium hydroxide [Milk of Magnesia] 400 mg/5 mL Suspension 30 ml PO DAILY PRN (Reason: Constipation) Xarelto 20 mg tablet 20 mg PO DAILY@0730 Rx Instructions: Before breakfast. melatonin 3 mg Tablet 6 mg PO BEDTIME trazodone 50 mg Tablet 12.5 mg PO DAILY@1600 quetiapine 50 mg tablet 50 mg PO TID@0700,1200,1600 Desitin Daily Defense 13 % Cream 1 appl TOPICAL BID ferrous gluconate 324 mg (38 mg iron) Tablet 324 mg PO DAILY cephalexin 250 mg tablet 250 mg PO MOWEFR@0900 loperamide 2 mg Tablet 2 mg PO Q6H MDD 8mh PRN (Reason: Loose Stool) cholecalciferol (vitamin D3) 1,250 mcg (50,000 unit) Tablet 1,250 mcg PO QMONTH Lactobacillus acidophilus 500 million cell Capsule 500 mmu cells PO DAILY omeprazole 20 mg capsule,delayed release(DR/EC) 20 mg PO BID@0630,1630 sulfamethoxazole-trimethoprim [Bactrim DS] 800-160 mg tablet 1 tab PO BID Qty: 10 0RF Print Language: Hong Konger
[2025-04-07 08:59] LABS: Hematocrit 40.3 % (37.0-47.0); Hemoglobin 12.2 g/dl (12.0-16.0); Imm Gran Abs Auto 0.01 X10*3/uL (0.00-0.03); Imm Gran Pct Auto 0.2 % (0.0-0.4); Lymphocytes Absolute Auto 0.8 X10*3/uL (1.2-4.9); MANUAL DIFF FLAG NO; Mean Corpuscular HGB Conc 30.3 g/dl (31.0-35.0); Mean Corpuscular Hemoglobin 28.7 pg (27.0-33.0); Mean Corpuscular Volume 94.8 fL (80.0-98.0); NRBC Abs Auto 0.000 X10*3/uL (0.0-0.012); NRBC Pct Auto 0.0 /100WBC (0.0-0.2); Platelet Count 193 X10*3/uL (160-400); Red Blood Count 4.25 X10*6/uL (4.20-5.50); White Blood Count 6.2 X10*3/uL (4.8-10.8)
[2025-04-07 09:14] LABS: Alanine Aminotransferase 12 U/L (0-31); Albumin Level 4.1 g/dL (3.5-5.0); Alkaline Phosphatase 97 U/L (39-117); Anion Gap 11 (12-20); Aspartate Amino Transferase 21 U/L (5-31); Blood Urea Nitrogen 25 mg/dL (9-16); Calcium 10.4 mg/dL (8.4-10.2); Carbon Dioxide 26 mmol/L (22-29); Chloride 109 mmol/L (96-108); Creatinine Clr Calc Pharmacy 37.3; Estimated Glomerular Filt Rate 56; Magnesium 1.6 mg/dL (1.6-2.6); Potassium 4.3 mmol/L (3.3-5.1); Sodium 142 mmol/L (135-145); Total Protein 7.3 g/dL (6.5-8.0)
[2025-04-07 09:21] LABS: Troponin-I High Sensitivity 4.2 ng/L (<3.5-17.0)
[2025-04-07 09:22] LABS: NT Pro B Type Natriuretic Pept 151.4 pg/mL (<300)
--- NOTE | 2025-04-07 10:33 | PC.NURSE ---
Son, Jaime, on phone with additional info. Pt has had increased falls in last week. May actually be getting tired and sitting down. Today she was found face first on floor. 3 falls this week. Was seen by PA from facility yesterday.
--- NOTE | 2025-04-07 12:08 | MHC.CM.ED ---
Addendum entered by Jaycee Martinez 04/07/25 16:10: Discussed pt's return w/Juliette, RN at [facility]: Juliette states pt is fine to return as she has 1:1 caregivers and can ambulate w/one person. Call placed to sonJaime explaining PT eval and [facility] policy on returning. He states pt's MD May in in the process of obtaining auth for PT at [facility] and is declining referrals for [facility] at this time. Jaime states he will hire additional help should [facility] request. Isaías FARFAN booked for 6:30pm transfer time this evening. ED care team aware of plan. Addendum entered by Jaycee Martinez 04/07/25 12:20: Pt uses a walker but can be forgetful. Jaime states pt typically has all services come to her and would not want her placed in STR unless absolutely necessary. Explained pending PT eval and 3 falls at [facility] in a week. Review of preliminary labs/imaging does not support an INPT admission. Jaime requesting a callback once PT eval complete for discussion on next level of care/home services. Message left for [facility] director to contact ED CM for discussion. ED CM to follow. Original Note: Pt w/confusion at baseline: call placed to pt's activated HCP, her son Jaime: Jaime states pt resides at [facility] and is in the process of moving to a smaller apartment
--- NOTE | 2025-04-07 12:15 | PC.NURSE ---
Pt in stover on stretcher, in nad, denies pain, awaiting dispo
--- NOTE | 2025-04-07 13:01 | PC.NURSE ---
Per tech reprt, attempted to ambulate pt, was very diff to ambulate. Provider aware, PT eval pending
[2025-04-07 13:04] LABS: Appearance Urine Hazy; Glucose Urine UA Negative (Negative); PH 6.0 (5.0-9.0); Specific Gravity - Urine 1.020 (1.005-1.025); UMIC TRIGGER UACC YES
[2025-04-07 13:24] LABS: Other Crystals Urine Present
--- NOTE | 2025-04-07 13:43 | PC.NURSE ---
PT here for eval
--- NOTE | 2025-04-07 14:56 | PHA.MEDREC ---
Pharmacy Consult ? Medication Reconciliation Pharmacy has completed the medication reconciliation. Patient was here and discharged on 04/04/2025, utilized discharge meds list to continue home meds.
--- NOTE | 2025-04-07 19:36 | PC.NURSE ---
A[[rpx 10 mins prior to EMS arrival pt suddenly became agitated, combative, and swearing at staff. It was clear pt was sun-downing at this point. Pt was refusing to return to facility w/ ems and attempted to strike them several times when they attempted to put pt on gurney. Attempted to contact both sons in an effort to see if they can talk to her and calm her down, however, there was no answer. Charge nurse made aware of situation, plan to wait to see if sons respond, if not pt will need re-book in am.
--- NOTE | 2025-04-07 21:39 | MHC.CM.ED ---
Addendum entered by Marla Olson 04/07/25 21:42: Pt is telling charge nurse that she wants to go home. BLS booked by RN Original Note: BLS arrived to transport patient back to [facility]. Pt is refusing transport. She is confused ? . CM attempted to call sonJaime to try and speak with pt about returning to facility. Message left. BLS refused transport. CM suggested to primary RN that transport occur in the morning when patient may be more alert.
== END 2025-04-07 22:40 | disposition home or self-care (01) ==
PROVIDERS: Physician Assistant; Emergency Provider Emergency Medicine
DX: S49.92XA Unspecified injury of left shoulder and upper arm, initial encounter (principal); M25.512 Pain in left shoulder; X58.XXXA Exposure to other specified factors, initial encounter; Y93.9 Activity, unspecified; Y92.9 Unspecified place or not applicable; Y99.8 Other external cause status; Z79.899 Other long term (current) drug therapy
CPT/HCPCS: 36415; 70450; 72125; 73030; 73521; 80048; 80076; 81001; 81003; 82550; 83735; 83880; 84484; 85025; 93005; 97162; 99285

== ENCOUNTER → 2025-04-07 08:35 | Outpatient (BNV) | payer MEDICARE, OTHER, SELFPAY | PROVIDERS: Emergency Provider Emergency Medicine; Visit Provider Radiology Diagnostic Radiology | DX: M47.812 Spondylosis without myelopathy or radiculopathy, cervical region (principal); S09.90XA Unspecified injury of head, initial encounter; M25.551 Pain in right hip; M25.552 Pain in left hip; M25.512 Pain in left shoulder; Z04.3 Encounter for examination and observation following other accident | CPT/HCPCS: 70450; 73030; 73521 ==

== ENCOUNTER → 2025-04-07 08:35 | Outpatient (BNV) | payer MEDICARE, OTHER, SELFPAY | PROVIDERS: Emergency Provider Emergency Medicine; Visit Provider Internal Medicine | DX: R94.31 Abnormal electrocardiogram [ECG] [EKG] (principal); Z04.3 Encounter for examination and observation following other accident | CPT/HCPCS: 93010 ==

== ENCOUNTER 2025-04-08 09:53 | Emergency (ER) | payer MEDICARE, OTHER, SELFPAY ==
--- OUTSIDE RECORDS SUMMARY | 2024-11-15 11:00 | XMS_ITS ---
Author Organization [facility] Address [address] [facility] [place] [address] Care Team Providers Care Case Technician Name Role Phone Renan Molina MD, Elizabeth Primary Care Provider U chachaailelayne Silva, Starr Unavailable [phone] Encounters Encounter Location Date Provider Diagnosis [address] [place] [address] 11/15/2024 Starr Silva Plan Of Treatment No Information Progress Notes * Lashaun HOWARDDOB:1935 (89 yo F)Acc No.[id number]:11/15/2024 Progress Note Patient: Lashaun WATKINS Provider: Tc Silva DPM :1935 A ge:89 Y S ex:Female Date:11/15/2024 Address:[address], [place], [place]-[id number] Pcp:Elizabeth Molina MD Subjective: * Chief [...] Silva DPM Date: 0 11/15/2024 Generated for Syi eusebio/Farogeriog/eTransmitting on: 1 06/09/2024 10:17 AM EST
[2025-04-08] VITALS (8 sets, daily range): BP systolic 138–168; BP diastolic 62–82; PULSE 78–93; RESP 14–18; TEMP 36.4–36.8; O2SAT 92–96; BMI 30.7
--- NOTE | ~2025-04-08 | XR_ITS ---
CLINICAL HISTORY: pain after fall Three views of the left shoulder. COMPARISON: XR left shoulder dated 04/07/25 at 09:26 EST FINDINGS: Proximal left humerus, the left scapula, and the left clavicle appear intact. Humeral head is appropriately seated in the glenoid. Acromioclavicular joint appears maintained. Visualized portions of the left lung are clear. IMPRESSION: 1. No radiographic evidence of acute injury to the left shoulder. This document has been electronically signed by: Ellis Melgar MD on 04/08/2025 16:36:57
--- NOTE | ~2025-04-08 | CT_ITS ---
CLINICAL HISTORY: fall with head strike, on thinners CT cervical spine without contrast. COMPARISON: CT cervical spine dated 04/07/25 at 09:49 EST FINDINGS: Grade 1 anterolisthesis of C5 on C6, degenerative and stable. Vertebral body heights are maintained. No evidence of acute vertebral body injury. Calcified plaque present at the carotid bulbs bilaterally. Dystrophic calcifications present within the thyroid on the right. C2-C3: Facet joint arthrosis. C3-C4: Loss of disc space height. Uncovertebral joint hypertrophy. Facet joint arthrosis. Moderate right and mild left neural foraminal narrowing. C4-C5: Loss of disc space height. Posterior disc osteophyte complex. Uncovertebral joint hypertrophy. Facet joint arthrosis. Severe right and moderate left neural foraminal narrowing. C5-C6: Facet joint arthrosis. C6-C7: Anterior marginal osteophytes. Loss of disc space height. Uncovertebral joint hypertrophy. Mild left neural foraminal narrowing. IMPRESSION: 1. No evidence of acute injury to the cervical spine. 2. Grade 1 anterolisthesis of C5 on C6, degenerative and stable. 3. Moderate multilevel cervical spondylosis. This document has been electronically signed by: Ellis Melgar MD on 04/08/2025 13:12:12
--- NOTE | ~2025-04-08 | CT_ITS ---
CLINICAL HISTORY: fall with head strike, on thinners CT head without contrast. COMPARISON: CT head dated 04/07/25 at 09:49 EST FINDINGS: The visualized paranasal sinuses are clear. The mastoid air cells are clear. No calvarial fracture. Atherosclerotic intracranial vasculature. No evidence for mass or mass effect. No intracranial hemorrhage or abnormal extra-axial fluid collection. No CT evidence of acute infarct. The ventricles are proportional with the degree of moderate global cerebral volume loss without evidence of hydrocephalus. Basilar cisterns are patent. There are periventricular areas of low attenuation compatible with moderate white matter small vessel disease. Posterior fossa appears unremarkable. IMPRESSION: 1. No acute intracranial findings. This document has been electronically signed by: Ellis Melgar MD on 04/08/2025 13:08:00
--- NOTE | 2025-04-08 09:53 | ED.GENADULT ---
HPI - General Adult General Chief complaint: Fall Stated complaint: FALL Source: patient, EMS and RN notes reviewed Mode of arrival: EMS Limitations: altered mental status History of Present Illness ED Provider: Zak HPI narrative: Patient is an 89-year-old female with history of Alzheimer's dementia, GERD, HTN presenting to the emergency department from her assisted living facility after an unwitnessed fall. EMS reports that they found the patient is supine outside the door of her room. Patient complains of headache and left shoulder pain. Arrives in c-collar from EMS. States she called for help right away, was not on the floor for an extended period of time. Seen the ED yesterday also after a fall. MD complaint: headache, shoulder pain Related Data Home Medications ?Medication ?Instructions ?Recorded ?Confirmed ascorbic acid (vitamin C) 250 mg 250 mg PO DAILY 11/13/24 04/07/25 tablet (Vitamin C) aspirin 81 mg tablet,delayed 81 mg PO DAILY 11/13/24 04/07/25 release atorvastatin 40 mg tablet 40 mg PO BEDTIME 11/13/24 04/07/25 cholecalciferol (vitamin D3) 50 50 mcg PO DAILY 11/13/24 04/07/25 mcg (2,000 unit) capsule (Vitamin D3) hydrochlorothiazide 12.5 mg tablet 12.5 mg PO DAILY 11/13/24 04/07/25 levothyroxine 50 mcg tablet 50 mcg PO DAILY@0600 11/13/24 04/07/25 lisinopril 10 mg tablet 15 mg PO DAILY 11/13/24 04/07/25 sertraline 50 mg tablet 75 mg PO DAILY 11/13/24 04/07/25 magnesium hydroxide 400 mg/5 mL 30 ml PO DAILY PRN Constipation 11/14/24 04/07/25 oral suspension (Milk of Magnesia) melatonin 3 mg tablet 6 mg PO BEDTIME 11/14/24 04/07/25 rivaroxaban 20 mg tablet (Xarelto) 20 mg PO DAILY@0730 11/14/24 04/07/25 sennosides 8.6 mg tablet (senna) 8.6 mg PO BID PRN Constipation 11/14/24 04/07/25 ferrous gluconate 324 mg (38 mg 324 mg PO DAILY 12/13/24 04/07/25 iron) tablet quetiapine 50 mg tablet 50 mg PO TID@0700,1200,1600 12/13/24 04/07/25 trazodone 50 mg tablet 12.5 mg PO DAILY@1600 12/13/24 04/07/25 zinc oxide 13 % topical cream 1 appl topical BID 12/13/24 04/07/25 (Desitin Daily Defense) Lactobacillus acidophilus 500 500 mmu cells PO DAILY 02/09/25 04/07/25 million cell capsule cephalexin 250 mg tablet 250 mg PO MOWEFR@0900 02/09/25 04/07/25 cholecalciferol (vitamin D3) 1,250 1,250 mcg PO QMONTH 02/09/25 04/07/25 mcg (50,000 unit) tablet loperamide 2 mg tablet 2 mg PO Q6H PRN Loose Stool 02/09/25 04/07/25 omeprazole 20 mg capsule,delayed 20 mg PO BID@0630,1630 02/09/25 04/07/25 release Previous Rx's ?Medication ?Instructions ?Recorded sulfamethoxazole 800 1 tab PO BID #10 tabs 02/13/25 mg-trimethoprim 160 mg tablet (Bactrim DS) Allergies Allergy/AdvReac Type Severity Reaction Status Date / Time No Known Allergies Allergy Verified 04/08/25 10:03 Review of Systems Review of Systems: as per hpi Yes all other systems are reviewed and are negative Constitutional: Constitutional: Reports as per HPI PMFSH Past Medical History Medical History Dementia with agitation Aggressive behavior Hiatal hernia History of DVT (deep vein thrombosis) HTN (hypertension) Hypothyroid Recurrent UTI HLD (hyperlipidemia) Dementia Surgical History History of ankle surgery H/O colonoscopy Social History Social History Household Members: Unknown / Unable to assess Housing: Unknown / Unable to assess Housing Other:: [facility] Are you a primary healthcare market consultant to a significant other at home: No Do you presently have visiting nurse or other home services: Yes Alcohol intake: former Patient Tobacco Use Status: Former Tobacco user Tobacco use type: Cigarette Smoked in Last 30 Days: No e-Cigarette/Vaping Use: Former Use Use of substances other than those prescribed or required for medical reasons: No Advance Directives: Yes Advance Directives on File: Yes Advance Directives Date on File: 11/21/24 Do you have a plan to hurt others: No Plan service: No Physical Exam ED Vital Signs: Vital Signs - 24 hr 04/08/25 10:00 04/08/25 10:04 04/08/25 10:04 Temperature 98.3 F 98.3 F 98.3 F Pulse Rate 80 80 80 Respiratory Rate 16 16 16 Blood Pressure 138/63 138/63 138/63 Pulse Oximetry 94 94 94 Oxygen Delivery Method Room Air Room Air 04/08/25 10:28 04/08/25 13:06 04/08/25 14:19 Temperature 97.6 F 98.1 F Pulse Rate 79 80 78 Respiratory Rate 16 18 16 Blood Pressure 163/76 H 145/62 H 142/77 H Pulse Oximetry 95 95 96 Oxygen Delivery Method Room Air Room Air Room Air 04/08/25 16:16 Temperature 97.9 F Pulse Rate 83 Respiratory Rate 14 Blood Pressure 168/73 H Pulse Oximetry 96 Oxygen Delivery Method Room Air BMI result Body Mass Index 30.7 Vital signs have been reviewed and appear to be correct. Blood pressure normal. Heart rate normal. Respiratory rate normal. Temperature normal. Oxygen saturation normal. Const General: cooperative, healthy appearing and no acute distress Orientation/consciousness: oriented to person and oriented to place HENMS Head: Yes normocephalic and Yes atraumatic Ears: external ears normal General nose exam: Normal external nose present Face and sinus: Yes face symmetric Mouth: oropharynx normal and moist mucous membranes Throat: Yes uvula midline Eyes Pupils: Equal, round and reactive pupils present Neck Neck: Yes normal visual inspection and Yes supple Resp Effort & Inspection: normal respiratory effort and able to speak in complete sentences Auscultation: clear to auscultation bilaterally Cardio Rate: regular rate Rhythm: regular rhythm Heart sounds: S1 normal heart sound present and S2 normal heart sound present GI Palpation (GI): Soft to palpation and nontender Auscultation: normoactive bowel sounds General: Yes no CVA tenderness Back/Spine/Pelvis Back: no CVA tenderness Skin General skin exam: elasticity normal and turgor normal Neuro General: oriented to person, oriented to place, tone normal, moves all extremities, Normal light touch and pain sensation, no focal motor deficits, CN's II-XI intact bilaterally and deep tendon reflexes 2+ bilaterally Cranial nerves: Yes Equal, round and reactive pupils present Motor exam (neuro): 5/5 motor strength present throughout, Normal motor muscle tone present throughout and Motor abnormalities not present Extrem General: Yes full ROM, Yes no pedal edema and Yes no calf tenderness Psych Mental Status: mental status grossly normal Affect: normal affect Thought process: Normal thought process present Medical Decision Making Medical Decision Making [facility] Narrative: Patient is an 89-year-old female with history of Alzheimer's dementia, GERD, HTN presenting to the emergency department from her assisted living facility after an unwitnessed fall. On exam patient is awake, A+Ox2 (baseline), VS WNL, afebrile, normal neurological exam without focal deficits, physical exam findings as above. Given reported symptoms and physical exam findings, initial differential includes but is not limited to ICH, skull or cervical vertebral fracture or subluxation, concussion, contusion, left shoulder contusion, strain, sprain, fracture. Labs unremarkable. EKG shows normal sinus rhythm, no significant change from prior. X-ray left shoulder is without evidence of acute fracture. CT head and C-spine notable for no evidence of ICH, skull or cervical vertebral fracture subluxation. My interpretation is in agreement with the radiologist's interpretation. Results discussed with patient and patient's son/healthcare proxy Jaime. He is comfortable with her discharge back to her assisted living facility as long as it is not too late at night. He feels that perhaps her recent discharges home from the emergency department late at night have contributed to her multiple falls. Discussed with patient's nurse, Jose, that the ambulance should come by 6:00 p.m.. If the ambulance is delayed, patient can be held in the emergency department overnight for transport back to the assisted living facility in the morning. Differential Diagnosis Differential Diagnoses: The differential diagnosis associated with the presentation includes As per [facility] Admission/Observation Consideration of admission/observation: Escalation of care including admission/observation considered Patient would have been admitted to the hospital and transferred to appropriate facility had their clinical presentation warranted hospital admission. Lab Data [facility] Lab Attestation statement: I reviewed the patient's lab results. as per [facility] 04/08/25 10:24 04/08/25 10:24 Labs: Lab Results 04/08/25 04/08/25 Range/Units 10:24 14:16 WBC 5.1 (4.8-10.8) X10*3/uL RBC 4.36 (4.20-5.50) X10*6/uL Hgb 12.6 (12.0-16.0) g/dl Hct 40.0 (37.0-47.0) % MCV 91.7 (80.0-98.0) fL MCH 28.9 (27.0-33.0) pg MCHC 31.5 (31.0-35.0) g/dl RDW 13.6 (11.0-16.0) % Plt Count 215 (160-400) X10*3/uL MPV 11.0 (9.4-12.3) fL Immature Gran % (Auto) 0.2 (0.0-0.4) % Neut % (Auto) 73.4 H (45-73) % Lymph % (Auto) 17.0 L (20-40) % [place] % (Auto) 6.4 (2-11) % Eos % (Auto) 1.8 (0-4) % Baso % (Auto) 1.2 (0-2) % Lymph # (Auto) 0.9 L (1.2-4.9) X10*3/uL [place] # (Auto) 0.3 (0.1-1.2) X10*3/uL Eos # (Auto) 0.1 (0.0-0.4) X10*3/uL Baso # (Auto) 0.1 (0.0-0.2) X10*3/uL Abs Immat Gran (auto) 0.01 (0.00-0.03) X10*3/uL Absolute Neuts (auto) 3.8 (2.0-8.3) x10*3/uL Absolute Nucleated RBC 0.000 (0.0-0.012) X10*3/uL Nucleated RBC % (auto) 0.0 (0.0-0.2) /100WBC Sodium 141 (135-145) mmol/L Potassium 4.2 (3.3-5.1) mmol/L Chloride 107 (96-108) mmol/L Carbon Dioxide 25 (22-29) mmol/L Anion Gap 13 (12-20) BUN 19 H (9-16) mg/dL Creatinine 1.09 (0.5-1.4) mg/dL Estim Creat Clear Calc 31.4 Estimated GFR 47 Random Glucose 109 (60-115) mg/dL Calcium 10.3 H (8.4-10.2) mg/dL Magnesium 1.6 (1.6-2.6) mg/dL Total Bilirubin 0.7 (0.0-1.0) mg/dL AST 20 (5-31) U/L ALT 12 (0-31) U/L Alkaline Phosphatase 90 (39-117) U/L Total Creatine Kinase 94 (26-140) U/L Troponin I High Sens 8.7 D (<3.5-17.0) ng/L Total Protein 7.0 (6.5-8.0) g/dL Albumin 4.0 (3.5-5.0) g/dL Urine Color Yellow Urine Appearance Cloudy Urine pH 5.5 (5.0-9.0) Ur Specific [place] 1.015 (1.005-1.025) Urine Protein Negative (Neg-Trace) mg/dL Urine Glucose (UA) Negative (Negative) mg/dL Urine Ketones Trace (Negative) mg/dL Urine Blood Negative (Negative) Urine Nitrite Negative (Negative) Ur Leukocyte Esterase Negative (Negative) Urine Opiates Screen Not Detected (Not Detect) Ur Buprenorphine Scrn Not Detected (Not Detect) ng/mL Ur Oxycodone Screen Not Detected (Not Detect) ng/mL Urine Methadone Screen Not Detected (Not Detect) ng/mL Urine Fentanyl Screen Not Detected (Not Detect) Ur Barbiturates Screen Not Detected (Not Detect) Ur Phencyclidine Scrn Not Detected (Not Detect) Ur Amphetamines Screen Not Detected (Not Detect) U Benzodiazepines Scrn Not Detected (Not Detect) Urine Cocaine Screen Not Detected (Not Detect) U Marijuana (THC) Screen Not Detected (Not Detect) Ethyl Alcohol < 10 mg/dL Influenza Type A (PCR) NEGATIVE (Negative) Influenza Type B (PCR) NEGATIVE (Negative) RSV RNA Qual (PCR) NEGATIVE (Negative) SARS-CoV-2 RNA (RT-PCR) NEGATIVE (Negative) Independent Interpretation I performed an independent interpretation of an: EKG (Normal sinus rhythm, rate 70 beats per minute, normal DC interval and QTC, no significant change from prior), Plain X-Ray and CT Scan Interpretation: X-ray left shoulder is without evidence of acute fracture. CT head and C-spine notable for no evidence of ICH, skull or cervical vertebral fracture subluxation. Radiology Impression Discussion of test interpretation with radiology: I have reviewed the radiologist's reading. Radiologist Impression: CT head without contrast. COMPARISON: CT head dated 04/07/25 at 09:49 EST FINDINGS: The visualized paranasal sinuses are clear. The mastoid air cells are clear. No calvarial fracture. Atherosclerotic intracranial vasculature. No evidence for mass or mass effect. No intracranial hemorrhage or abnormal extra-axial fluid collection. No CT evidence of acute infarct. The ventricles are proportional with the degree of moderate global cerebral volume loss without evidence of hydrocephalus. Basilar cisterns are patent. There are periventricular areas of low attenuation compatible with moderate white matter small vessel disease. Posterior fossa appears unremarkable. IMPRESSION: 1. No acute intracranial findings. CT cervical spine without contrast. COMPARISON: CT cervical spine dated 04/07/25 at 09:49 EST FINDINGS: Grade 1 anterolisthesis of C5 on C6, degenerative and stable. Vertebral body heights are maintained. No evidence of acute vertebral body injury. Calcified plaque present at the carotid bulbs bilaterally. Dystrophic calcifications present within the thyroid on the right. C2-C3: Facet joint arthrosis. C3-C4: Loss of disc space height. Uncovertebral joint hypertrophy. Facet joint arthrosis. Moderate right and mild left neural foraminal narrowing. C4-C5: Loss of disc space height. Posterior disc osteophyte complex. Uncovertebral joint hypertrophy. Facet joint arthrosis. Severe right and moderate left neural foraminal narrowing. C5-C6: Facet joint arthrosis. C6-C7: Anterior marginal osteophytes. Loss of disc space height. Uncovertebral joint hypertrophy. Mild left neural foraminal narrowing. IMPRESSION: 1. No evidence of acute injury to the cervical spine. 2. Grade 1 anterolisthesis of C5 on C6, degenerative and stable. 3. Moderate multilevel cervical spondylosis. CLINICAL HISTORY: pain after fall Three views of the left shoulder. COMPARISON: XR left shoulder dated 04/07/25 at 09:26 EST FINDINGS: Proximal left humerus, the left scapula, and the left clavicle appear intact. Humeral head is appropriately seated in the glenoid. Acromioclavicular joint appears maintained. Visualized portions of the left lung are clear. IMPRESSION: 1. No radiographic evidence of acute injury to the left shoulder. Independent Historian Clinical information obtained from an independent historian. History obtained from or confirmed by: Other External Record Review External record reviewed: Inpatient record, Office record and Outpatient record Discharge Plan Discharge Clinical Impression: Left shoulder pain, Fall Patient Disposition: Home, Self-Care Additional Instructions: You were evaluated in the emergency department today for injuries after a fall. Your evaluation does not show evidence of conditions requiring emergent medical treatment at this time. We recommend that you follow up with your primary care provider as needed. Return to the emergency department with new or concerning symptoms. Prescriptions: No Action atorvastatin 40 mg tablet 40 mg PO BEDTIME aspirin 81 mg tablet,delayed release (DR/EC) 81 mg PO DAILY levothyroxine 50 mcg tablet 50 mcg PO DAILY@0600 lisinopril 10 mg tablet 15 mg PO DAILY hydrochlorothiazide 12.5 mg tablet 12.5 mg PO DAILY ascorbic acid (vitamin C) [Vitamin C] 250 mg Tablet 250 mg PO DAILY sertraline 50 mg tablet 75 mg PO DAILY cholecalciferol (vitamin D3) [Vitamin D3] 50 mcg (2,000 unit) Capsule 50 mcg PO DAILY sennosides [senna] 8.6 mg Tablet 8.6 mg PO BID PRN (Reason: Constipation) magnesium hydroxide [Milk of Magnesia] 400 mg/5 mL Suspension 30 ml PO DAILY PRN (Reason: Constipation) Xarelto 20 mg tablet 20 mg PO DAILY@0730 Rx Instructions: Before breakfast. melatonin 3 mg Tablet 6 mg PO BEDTIME trazodone 50 mg Tablet 12.5 mg PO DAILY@1600 quetiapine 50 mg tablet 50 mg PO TID@0700,1200,1600 Desitin Daily Defense 13 % Cream 1 appl TOPICAL BID ferrous gluconate 324 mg (38 mg iron) Tablet 324 mg PO DAILY cephalexin 250 mg tablet 250 mg PO MOWEFR@0900 loperamide 2 mg Tablet 2 mg PO Q6H MDD 8mh PRN (Reason: Loose Stool) cholecalciferol (vitamin D3) 1,250 mcg (50,000 unit) Tablet 1,250 mcg PO QMONTH Lactobacillus acidophilus 500 million cell Capsule 500 mmu cells PO DAILY omeprazole 20 mg capsule,delayed release(DR/EC) 20 mg PO BID@0630,1630 sulfamethoxazole-trimethoprim [Bactrim DS] 800-160 mg tablet 1 tab PO BID Qty: 10 0RF Print Language: [place]
--- NOTE | 2025-04-08 09:59 | ECG_ITS ---
Test Reason : fall Blood Pressure : */* mmHG Vent. Rate : 78 BPM Atrial Rate : 78 BPM P-R Int : 164 ms QRS Dur : 74 ms QT Int : 376 ms P-R-T Axes : 13 -5 0 degrees QTcB Int : 428 ms Artifact in tracing Normal sinus rhythm Possible Inferior infarct , age undetermined Abnormal ECG When compared with ECG of 07-Apr-2025 08:41, No significant change was found Referred By: Ana Maria Crespo Electronically Signed By: KATI BEDOYA
--- OUTSIDE RECORDS SUMMARY | 2025-04-08 10:18 | XMS_ITS | Data Portability ---
Author Organization [place] - [facility], [facility] Address [address] [place] [address] Assessment Encounter Date Assessment Date Assessment LastModified [...] right ankle 3 v out of cast [email or web address] Not available 04/26/2024 12:49:17 05/17/2024 05/17/2024 SUBJECTIVE Chief Complaint Follow-up for right ankle fracture, status post-ORIF performed on April 10, 2024. History of Present Illness The patient, YESSENIA, is accompanied by a family member from her rehab facility. She reports minimal pain and is doing well. TM remains cpn-[id number]-[id number] on the affected extremity. OBJECTIVE Examination The patient's right ankle shows foot swelling. The calf is soft and non-tender. Medial and lateral incisions are well-healed with monofilament suture in place. Imaging X-rays ordered, obtained, and reviewed by me today at [facility] of the right ankle, three views, [...] ankle X-ray. Date: 05/17/2024 Patient Name: YESSENIA [email or web address] Not available 05/17/2024 11:39:26 06/15/2024 06/15/2024 SUBJECTIVE [...] obtained, and reviewed by me today at [facility]: Right ankle, three views, show malleolar fixation intact, fracture lines through the medial and lateral malleolus resolving, ankle joint spaces maintained. ASSESSMENT Right ankle fracture healing. PLAN Discontinue cast. Allow weight-bearing as tolerated with the goal of resuming ambulation. Recheck in three months. [email or web address] Not available 06/15/2024 12:09:52 09/13/2024 09/13/2024 SUBJECTIVE: [...] obtained and reviewed by me today at [facility] Right ankle three views show the ankle joints appropriately positioned. The lateral, medial and posterior malleoli fracture alignment maintained with signs of healing. Fracture lines blurred fibular and medial malleolar implants in place. ASSESSMENT: Right ankle fracture trimaleolar status post ORIF with routine healing and good recovery to date. PLAN: Further follow up on an as needed basis. No restrictions outlined. [email or web address] Not available 09/13/2024 12:11:09 Plan of Treatment Reminders Order Date Submit Date Provider Last Modified By Organization Details Last Modified Time Details Appointments None recorded. Lab None recorded. Referral None recorded. Procedures None recorded. Surgeries None recorded. Imaging XR, ankle, 3 or more view - 315 rt ankle 3v recheck 025 025 [facility]st[facility], [address], [place], [address], 5 12:58:04 XR, ankle, 3 or more view - 314 3v rt ankle global cast off first 025 025 cstamand [facility], [address], [place], [address], 5 06:52:27 XR, ankle, 3 or more view - 314- right ankle 3v global cast off first 025 025 [email or web address] 4 [facility], [address], [place], [address], 5 12:03:07 XR, ankle, 3 or more view - 314 rt ankle 3v global 024 024 [email or web address] 0 [facility], [address], [place], [address], 4 16:14:13 Medication Orders None recorded. Patient TargetsNo targets recorded. Patient Instructions Encounter Date Encounter Id Patient Instructions Last Modified By Organization Details Last Modified Time 04/26/[id number] application of cast, short leg cast* - 314 SLC NWB NEUTRAL, pt very stiff unable to get to neutral [email or web address] Not available 05/03/2024 16:14:13 05/17/[id number] cast removal* - 314 cast off and xr [email or web address] Not available 05/17/2024 12:03:07 application of cast, short leg cast* - 314 SLC neutral WB Not available 05/17/2024 12:14:11 06/15/[id number] cast removal* - 314 rt ankle cast off and xr, global [email or web address] Not available 06/15/2024 13:05:35 Reason for Referral None Reported. Results Created Date Observation Date Name Description Value Unit Range Abnormal Flag Note LastModifiedBy Organization Detail LastModifiedTime 04/26/20 24 04/26/2024 XR, ankle , 3 or more view [email or web address]:/ [email or web address] ?Encry pted=s hAaTro YD8dLq bEUv6g %2BXZw aYqtaq 0bqfl% 2Fg9IQ a4ajBk vP9nXo QUaueC m3YtLR FvZl [place] [address] AC0Kqb nuBUqW kKiQtr MwF INTERFACE [facility] [address] [facility] [address] [facility], [place], [address], 04/26/2024 10:34:44 04/26/20 24 04/26/2024 XR, ankle , 3 or more view [email or web address]:/ [email or web address] ?Encry pted=s hAaTro YD8dLq bEUv6g %2BXZw aYqtaq 0bqfl% 2Fg9IQ a4ajBk vP9nXo QUaueC m3YtLR [facility] [place] [address] 3u8066 AC0Kqb nuBUqW kKiQtr MwF INTERFACE [facility] [address], [place], [address], 04/26/2024 10:34:46 05/17/19 25 05/17/2024 XR, ankle , 3 or more view [email or web address]:/ [email or web address] ?Encry pted=s hAaTro YD8dLq bEUv6g %2BXZw aYqtaq 0bqfl% 2Fg9IQ a4ajBk vP9nXo QUaueC m3YtLR Zl JJ8mAn HZtai3 3d3745 AC0Kqb 3mFUaW vKiQtr MwF INTERFACE [facility] [address] [facility] [address], [place], [address], 05/17/2024 10:58:19 05/17/19 25 05/17/2024 XR, ankle , 3 or more view [email or web address]:/ [email or web address] ?Encry pted=s hAaTro YD8dLq bEUv6g %2BXZw aYqtaq 0bqfl% 2Fg9IQ a4ajBk vP9nXo QUaueC m3YtLR FvZlgJ JJ8mAn HZtai3 2t7591 AC0Kqb 3mFUaW vKiQtr MwF INTERFACE [facility] [address] [facility] [address], [place], [address], 05/17/2024 10:58:21 06/15/19 25 06/15/2024 XR, ankle , 3 or more view [email or web address]:/ [email or web address] ?Encry pted=s hAaTro YD8dLq bEUv6g %2BXZw aYqtaq 0bqfl% 2Fg9IQ a4ajBk vP9nXo QUaueC m3YtLR FvZlgJ JJ8mAn HZtai3 3e4967 AC0Kqb HqNWaO kKiQtr MwF INTERFACE [facility] [address] [facility] [address], [place], [address], 06/15/2024 10:36:12 06/15/19 25 06/15/2024 XR, ankle , 3 or more view [email or web address]:/ [email or web address] ?Encry pted=s hAaTro YD8dLq bEUv6g %2BXZw aYqtaq 0bqfl% 2Fg9IQ a4ajBk vP9nXo QUaueC m3YtLR FvZlgJ JJ8mAn HZtai3 4x5573 AC0Kqb HqNWaO kKiQtr MwF INTERFACE [facility] [address], [place], [address], 06/15/2024 10:36:15 09/14/19 25 09/13/2024 XR, ankle , 3 or more view [email or web address]:/ [email or web address] ?Encry pted=s hAaTro YD8dLq bEUv6g %2BXZw aYqtaq 0bqfl% 2Fg9IQ a4ajBk vP9nXo QUaueC m3YtLR FvZlgJ [facility] HZtai3 6e9986 AC0Kla nSDVqK kKiQtr MwF INTERFACE [facility] [address], [place], [address], 09/13/2024 11:54:15 09/14/19 25 09/13/2024 XR, ankle , 3 or more view [email or web address]:/ [email or web address] ?Encry pted=s hAaTro YD8dLq bEUv6g %2BXZw aYqtaq 0bqfl% 2Fg9IQ a4ajBk vP9nXo QUaueC m3YtLR FvZlJ [address]ta[address] [address] AC0Kla nSDVqK kKiQtr MwF INTERFACE [facility] [address] [place] [address], [place], [address], 09/13/2024 11:54:16 09/14/19 25 09/13/2024 XR, ankle , 3 or more view [email or web address]:/ [email or web address] ?Encry pted=s hAaTro YD8dLq bEUv6g %2BXZw aYqtaq 0bqfl% 2Fg9IQ a4ajBk vP9nXo QUaueC m3YtLR FvZlgJ JJ8mAn HZtai3 6j0422 AC0Kla nSDVqK kKiQtr MwF INTERFACE [facility] [address], [place], [address], 09/13/2024 12:02:41 09/14/19 25 09/13/2024 XR, ankle , 3 or more view [email or web address]:/ [email or web address] ?Encry pted=s hALianeto YD8dLq bEUv6g %2BXZw aYqtaq 0bqfl% 2Fg9IQ a4ajBk vP9nXo QUaueC m3YtLR FvZlgJ JJ8mAn HZtai3 0z0300 AC0Kla nSDVqK kKiQtr MwF INTERFACE [facility] [address] [facility] [address], [place], [address], 09/13/2024 12:02:43 Result Notes Documentation Provider Name and Address Organization Details Recorded Time Xr, Ankle, 3 Or More View : [email or web address] Encrypted=vqRtMeeVU7aPpoJ Uv6g%9PHUduWtaim6xfkz%2Fg 1XZh2wjGywQ8hAsCCoxoVs4Zy AAKnIxpEXQ7tPpQFsee53u486 5OB0JggysVAuLnMwApgNzU Not Available [facility] 04/26/2024 10:34: 44 Xr, Ankle, 3 Or More View : [email or web address] Encrypted=xmMnOqhXY9aMjyN Uv6g%9OJZcfVvmpj7zfvy%2Fg 4MTj8dpKytR3bVbGWmnpWk9Tk HDKnOeuWMN7lHjSPoss65t348 6OC2HxoyeUHfGxGsAiaKzL Not Available [facility] 04/26/2024 10:34: 47 Xr, Ankle, 3 Or More View : [email or web address] Encrypted=nyXjFqvWG3zSxrQ Uv6g%1ZPCxxUtpsb7pgxh%2Fg 5HJd2nnYhhT6gNiBJquaIy4Jo SSTpImxJMP4uNrXEcdk43f414 5CP9Ytr0lYUxHzAeVqcRoE Not Available [facility] 05/17/2024 10:58: 19 Xr, Ankle, 3 Or More View : [email or web address] Encrypted=kqFyBswHD0hRepI Uv6g%8BDUuhChdtt6dule%2Fg 5CRu1hgXuhN0hMiXSdpuHe6Tv RHPsBdqYRN2fUfARgyd17y548 0BL6Lbn2eMLlPfRbGfoVdB Not Available [facility] 05/17/2024 10:58: 22 Xr, Ankle, 3 Or More View : [email or web address] Encrypted=zyOiWwqQS5uPxrE Uv6g%7GCYcnYfrgy2fyat%2Fg 9MFs7dcPaaG1mFtWIhctEb6Gy SXMrRagDBS9yNfRAvkj54i753 4JQ0EoiBbYLdXkOmNcaUzP Not Available [facility] 06/15/2024 10:36: 13 Xr, Ankle, 3 Or More View : [email or web address] Encrypted=wcTdFmxSF3oTjeT Uv6g%7ENAnoZraji2bqys%2Fg 2XLd6ujFkeH4oAiITcjkSm1Iy XHQvMrfJNF8bCkLAngi92u988 7IY1OywAmEBsFzQcLdfRcF Not Available [facility] 06/15/2024 10:36: 15 Xr, Ankle, 3 Or More View : [email or web address] Encrypted=hzNtIugWF7eFfsO Uv6g%8CTZjiSxvlt7lmgj%2Fg 4KXx2aeDksW5sXrZUnyaDw1Dw MFOfCymNHI2xPeEAaqn16s248 3VC7GtsgCSUgBoJkVjuOpS Not Available [facility] 09/13/2024 11:54: 15 Xr, Ankle, 3 Or More View : [email or web address] Encrypted=tbPfLjeVR6fAxwD Uv6g%0HCVhnVwigd0qalc%2Fg 7CMb7giPimU5nNtIVixhDs4Ke ZUIgMzrPYP2hNdAWknv18g346 5MF5OdxbGZTzRkQbKyeJqG Not Available [facility] 09/13/2024 11:54: 17 Xr, Ankle, 3 Or More View : [email or web address] Encrypted=miDjEzeAN3xBxjK Uv6g%1YNMjfLeyqo2acsl%2Fg 9BTk5zjMebR1bTuNBiriAv4Aq UUNpXvpMRO7oSyMHlap78f497 6DD4WkreYLVbRoZsIcoWeE Not Available [facility] 09/13/2024 12:02: 42 Xr, Ankle, 3 Or More View : [email or web address] Encrypted=pyJoMhfLV5vXdhU Uv6g%4DKKpdJlscz0qejy%2Fg 3LRr9wlIzoT9sJtNZaogXb0Dy VWCjWdpPAX2iDvDJslq04s537 8HL4YirnQWQbKfFuUkwAnO Not Available [facility] 09/13/2024 12:02: 43 Medical Equipment None Reported. [...] Details Last Updated DateTime 05/17/2024 [facility] 05/17/2024 10:33:53 Date Recorded Body height Provider Name an d Address Organization Details Last Updated DateTime 06/15/2024 152.4 cm [facility] 06/15/2024 10:18:57 Date Recorded Body height Provider Name an d Address Organization Details Last Updated DateTime 09/13/2024 152.4 cm [facility] 09/13/2024 11:47:37 Date Recorded Body height Provider Name an d Address Organization Details Last Updated DateTime 04/26/2024 152.4 cm [facility] 04/26/2024 10:22:14 Social History None recorded. Functional Status None recorded. Mental Status None recorded. Family History Nothing Reported. Medical History Condition Response Allergies/Hayfever N Coronary Artery Disease N Anxiety/Depression N Breathing or lung disorders N Emphysema N Nerve Disorders N Thyroid Problems Y COPD N Pacemaker N Anemia N Kidney/Bladder Problems N Vascular Disease N Heart Trouble N Heart Attack (CT) N Gastrointestinal Disease N Cholesterol Y Diabetes [...] ICD10 Code Diagnosis IMO Codes Diagnosis Note [id number] Cate Chen MD [facility] [address] [place] [address] 04/26/2024 10:10:07 05/18/2024 16:28:27 Closed fracture of right ankle 4266340065 [id number] S82.891A [id number] [facility] [address] [address] [place] [address] 05/17/2024 10:20:39 05/17/2024 11:41:43 Closed fracture of right ankle 8535849845 9242397 S82.891A 7539633 [id number] MD CHRISTIAN [facility] [address] [place] [address] 06/15/2024 10:09:23 07/05/2024 06:52:27 Closed fracture of right ankle 8898533405 3920411 S82.891A 7377271 [id number] [facility] [address] [place] [address] 09/13/2024 11:43:31 09/20/2024 12:58:04 Closed fracture of right ankle 0615927537 7362469 S82.891A [id number] Health Concerns Section Related Observation LastModified by Organization Detai ls LastModified Time None Recorded Concern Status LastModified by Organization Details LastModified Time None Recorded Advance Directives Directive None Recorded Payers Insurance Date Sequence Insurance Name Policy Number Policy Thomas Covered Member ID Thomas Member ID Guarantor Name 09/11/2024 1 [place] [employer] Lashaun Turpin [id number] Lashaun Turpin 09/20/2024 2 [facility] INDEMNITY PLAN (INDEMNITY) [id number] Lashaun Turpin [id number] Lashaun Papi 06/06/2024 [facility] Lashaun Papi [id number] Lashaun Papi 09/11/2024 [facility] - SPECIALITY CLAIMS (MEDICARE DME REGION A) Lashaun Pastor Turpin [id number] Lashaun Papi OBGyn Episode No OBEpisode recorded.
--- OUTSIDE RECORDS SUMMARY | 2025-04-08 10:18 | XMS_ITS | Patient Health Record ---
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) Active confirmed Problem PlantarFlexion o f metatarsal of left foot (M21.6X2) Active confirmed Problem Localized, primary osteoarthritis of the ankle and/or foot (248512057) Arthritis of joint of lesser toe, right (M19.071) Active confirmed Plan Of Treatment Pending Test Test Name Order Date X ray : Foot, right 2V 04/23/2012 X ray : Foot, right 2V 05/28/2012 X ray : Foot, left 3V 03/16/2012 X ray : Foot, right 3V 03/16/2012 35994-QDVGWRB NAIL, 6 OR MORE 03/23/2020 29934-ZYXAPMJ NAIL, 6 OR MORE 09/14/2020 80783-JFPSJTQ NAIL, 6 OR MORE 12/14/2020 26726-TTTLMBE NAIL, 6 OR MORE 03/26/2021 25967-ULSNTKW NAIL, 6 OR MORE 08/21/2021 43489-IINUSXA NAIL, 6 OR MORE 11/22/2021 77810-VGJAFSI NAIL, 6 OR MORE 05/30/2022 11491-JEWMWHH NAIL, 6 OR MORE 09/02/2022 59655-SHOQERQ NAIL, 6 OR MORE 12/03/2022 17430-DALFGOX NAIL, 6 OR MORE 03/04/2023 63547-MFOZHXD NAIL, 6 OR MORE 06/09/2023 15475-Zgigslwj Plate 12/03/2022 82751-Njcmplyx Plate 05/30/2022 35475-Utdddmew Plate 09/14/2020 75177-Cmadvhks Plate 08/21/2021 73700-Lxuimxdh Plate 03/26/2021 22462-Wrsgozsy Plate 12/14/2020 84961-Jxlygkcf Plate 03/23/2020 78483-Rikpqisa Plate Each Additional 03508-Hvrxeniz Plate Each Additional Insurance Providers Payer Name Payer Address Payer Phone Subscriber Number Group Number Insured Name Patient Relationship to Insured Coverage Start Date Coverage End Date Medicare National [employer]t [employer] [address] [place] [address] [id number] Lashaun Turpin Self - patient is the insured [facility] [address] RANJAN SOTO [id number] Lashaun Turpin Self - patient is the insured Medical (General) History Medical History History ICD Code Arthritis back, hip, knee pain broken bones cholesterol gall bladder problems Hiatal hernia high blood pressure sciatica thyroid disorder chicken pox measles mumps CAD (Cholesterol) Nerve disease Reflux Surgical History Surgery Date(Month/Year)
--- OUTSIDE RECORDS SUMMARY | 2025-04-08 10:18 | XMS_ITS | Encounter Summary ---
Author Organization [facility] Address [address] [place] [address] Care Team Providers Care Journeyman Sheet Metal Worker Name Role Phone Lauren Garcia MD Primary Care Provider + Encounter Details Date Type Department Care Team (Late st Contact Info) Description 06/11/2024 Lab Requisition [facility] - Main Lab [address] [facility] [place] [address] Lauren Garcia MD [address] [id number] Essential (primary) hypertension Social History Tobacco Use [...] LAB CHEMISTRY METHOD 06/13/2024 11:[address] [facility] Potassium 3.9 3.5 - 5.5 mmol/L LAB CHEMISTRY METHOD 06/13/2024 11:[address] [facility] Chloride 104 96 - 110 mmol/L LAB CHEMISTRY METHOD 06/13/2024 11:30 AM [facility] CO2 28 21 - 32 mmol/L LAB CHEMISTRY METHOD 06/13/2024 11:30 AM [facility] Anion Gap 6 3 - 11 LAB CHEMISTRY METHOD 06/13/2024 11:30 AM [facility] Glucose 72 70 - 100 mg/dL LAB CHEMISTRY METHOD 06/13/2024 11:30 AM [facility] BUN 45(H) 5 - 25 mg/dL LAB CHEMISTRY METHOD 06/13/2024 11:30 AM [facility] Creatinine 1.32(H) 0.50 - 1.10 mg/dL LAB CHEMISTRY METHOD 06/13/2024 11:30 AM [facility] eGFR 39(L) >=60 mL/min/1. 73m2 LAB CHEMISTRY METHOD 06/13/2024 11:30 AM [facility] Comment:Calculation based on the Chronic Kidney Disease Epidemiology Collaboration (CKD-EPI) equation refit without adjustment for race. BUN/Creatinine Ratio 34.1 LAB CHEMISTRY METHOD 06/13/2024 11:30 AM [facility] Calcium 9.5 8.5 - 10.5 mg/dL LAB CHEMISTRY METHOD 06/13/2024 11:30 AM [facility] Blood Venous blood specimen / Unknown Venipuncture / Unknown 06/13/2024 5:32 AM EST 06/13/2024 10:14 AM EST us Lauren Garcia MD LAB BLOOD ORDERABLES Fin al Result [facility] [address] [place] [address], * (ABNORMAL) Complete blood count (06/13/2024 5:32 AM EST) WBC 8.2 4.8 - 10.8 K/mcL LAB HEMETOLOGY METHOD 06/13/2024 10:40 AM [facility] RBC 3.70(L) 3.80 - 4.80 M/mcL LAB HEMETOLOGY METHOD 06/13/2024 10:40 AM [facility] Hemoglobin 9.5(L) 11.5 - 16.0 g/dL LAB HEMETOLOGY METHOD 06/13/2024 10:40 AM [facility] Hematocrit 31.9(L) 35.0 - 47.0 % LAB HEMETOLOGY METHOD 06/13/2024 10:40 AM [facility] MCV 86.9 79.0 - 98.0 FL LAB HEMETOLOGY METHOD 06/13/2024 10:40 AM [facility] MCH 25.9(L) 27.0 - 32.0 pcg LAB HEMETOLOGY METHOD 06/13/2024 10:40 AM [facility] MCHC 29.8(L) 32.0 - 37.0 g/dL LAB HEMETOLOGY METHOD 06/13/2024 10:40 AM [facility] RDW 16.6(H) 11.0 - 15.0 % LAB HEMETOLOGY METHOD 06/13/2024 10:40 AM [facility] Platelets 168 130 - 400 K/mcL LAB HEMETOLOGY METHOD 06/13/2024 10:40 AM [facility] MPV 12.2(H) 7.0 - 11.0 FL LAB HEMETOLOGY METHOD 06/13/2024 10:40 AM [facility] NRBC 0.0 <1.0 % LAB HEMETOLOGY METHOD 06/13/2024 10:40 AM [facility] NRBC Absolute 0.00 <0.10 K/mcL LAB HEMETOLOGY METHOD 06/13/2024 10:40 AM [facility] Blood Venous blood specimen / Unknown Venipuncture / Unknown 06/13/2024 5:32 AM EST 06/13/2024 10:14 AM EST Lauren Garcia MD LAB BLOOD ORDERABLES Fin al Result 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
--- OUTSIDE RECORDS SUMMARY | 2025-04-08 10:18 | XMS_ITS | Encounter Summary ---
Author Organization [employer] Address [address] [place] [address] Care Team Providers Care Photography Editor Name Role Phone Lauren Garcia MD Primary Care Provider + Encounter Details Date Type Department Care Team (Late st Contact Info) Description 05/11/2024 Lab Requisition [facility] - Main Lab [address] [facility] [place] [address] Lauren Garcia MD [address] [facility] [address] [place], [place] [id number] Chronic kidney disease, unspecified; Essential (primary) hypertension; [...] mmol/L LAB CHEMISTRY METHOD 05/11/2024 10:09 AM [facility] Potassium 5.0 3.5 - 5.5 mmol/L LAB CHEMISTRY METHOD 05/11/2024 10:09 AM [facility] Chloride 105 96 - 110 mmol/L LAB CHEMISTRY METHOD 05/11/2024 10:09 AM [facility] CO2 25 21 - 32 mmol/L LAB CHEMISTRY METHOD 05/11/2024 10:09 AM [facility] Anion Gap 6 3 - 11 LAB CHEMISTRY METHOD 05/11/2024 10:09 AM [facility] Glucose 130(H) 70 - 100 mg/dL LAB CHEMISTRY METHOD 05/11/2024 10:09 AM [facility] BUN 24 5 - 25 mg/dL LAB CHEMISTRY METHOD 05/11/2024 10:09 AM [facility] Creatinine 1.13(H) 0.50 - 1.10 mg/dL LAB CHEMISTRY METHOD 05/11/2024 10:09 AM [facility] eGFR 47(L) >=60 mL/min/1. 73m2 LAB CHEMISTRY METHOD 05/11/2024 10:09 AM [facility] Comment:Calculation based on the Chronic Kidney Disease Epidemiology Collaboration (CKD-EPI) equation refit without adjustment for race. BUN/Creatinine Ratio 21.2 LAB CHEMISTRY METHOD 05/11/2024 10:09 AM [facility] Calcium 9.7 8.5 - 10.5 mg/dL LAB CHEMISTRY METHOD 05/11/2024 10:09 AM [facility] Blood Venous blood specimen / Unknown Venipuncture / Unknown 05/11/2024 6:33 AM EST 05/11/2024 9:28 AM EST us Lauren Garcia MD LAB BLOOD ORDERABLES Fin al Result [facility] [address] [place] [address], * (ABNORMAL) Complete blood count (05/11/2024 6:33 AM EST) [facility] WBC 9.1 4.8 - 10.8 K/mcL LAB HEMETOLOGY METHOD 05/11/2024 9:52 AM [facility] RBC 4.70 3.80 - 4.80 M/mcL LAB HEMETOLOGY METHOD 05/11/2024 9:52 AM [facility] Hemoglobin 11.6 11.5 - 16.0 g/dL LAB HEMETOLOGY METHOD 05/11/2024 9:52 AM [facility] Hematocrit 40.5 35.0 - 47.0 % LAB HEMETOLOGY METHOD 05/11/2024 9:52 AM [facility] MCV 87.1 79.0 - 98.0 FL LAB HEMETOLOGY METHOD 05/11/2024 9:52 AM [facility] MCH 24.9(L) 27.0 - 32.0 pcg LAB HEMETOLOGY METHOD 05/11/2024 9:52 AM [facility] MCHC 28.6(L) 32.0 - 37.0 g/dL LAB HEMETOLOGY METHOD 05/11/2024 9:52 AM [facility] RDW 14.3 11.0 - 15.0 % LAB HEMETOLOGY METHOD 05/11/2024 9:52 AM [facility] Platelets 225 130 - 400 K/mcL LAB HEMETOLOGY METHOD 05/11/2024 9:52 AM [facility] MPV 12.1(H) 7.0 - 11.0 FL LAB HEMETOLOGY METHOD 05/11/2024 9:52 AM [facility] NRBC 0.0 <1.0 % LAB HEMETOLOGY METHOD 05/11/2024 9:52 AM [facility] NRBC Absolute 0.00 <0.10 K/mcL LAB HEMETOLOGY METHOD 05/11/2024 9:52 AM EST [facility] Blood Venous blood specimen / Unknown Venipuncture / Unknown 05/11/2024 6:33 AM EST 05/11/2024 9:28 AM EST us Lauren Garcia MD LAB BLOOD ORDERABLES Fin al Result [facility] [address] [place] [address], documented in this encounter Visit Diagnoses Diagnosis Chronic kidney disease, unspecified Essential (primary) hypertension Unspecified essential hypertension Displaced comminuted fracture of shaft of right tibia, subsequent encounter for closed fracture with routine healing documented in this encounter Additional Health Concerns Infection Onset Date Last Indicated Resolved Time 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
--- OUTSIDE RECORDS SUMMARY | 2025-04-08 10:18 | XMS_ITS | Encounter Summary ---
Author Organization [facility] Address [address] [place] [address] Care Team Providers Care Pv Design And Installation Technician Name Role Phone Lauren Garcia MD Primary Care Provider + Encounter Details Date Type Department Care Team (Late st Contact Info) Description 06/01/2024 Lab Requisition [facility] - Main Lab 299 [facility] [place] [address] Lauren Garcia MD 819 [facility] 1 [place], [place] [phone] Altered mental status, unspecified; Urinary tract infection, [...] reflex microscopic (05/31/2024 2:00 PM EST) Specific [place] Urine 1.024 1.003 - 1.030 LAB URINALYSIS [...] MD LAB URINE ORDERABLES Fin al Result 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
--- OUTSIDE RECORDS SUMMARY | 2025-04-08 10:18 | XMS_ITS | Encounter Summary ---
Author Organization [facility] Address [address] [place] [address] Care Team Providers Care Mid Level Practitioner Name Role Phone Lauren Garcia MD Primary Care Provider + Encounter Details Date Type Department Care Team (Late st Contact Info) Description 06/09/2024 Lab Requisition [facility] - Main Lab 299 [place] [address] Lauren Garcia MD [address] [phone] Altered mental status, unspecified; Vitamin D deficiency, [...] LAB CHEMISTRY METHOD 06/09/2024 11:28 AM EST [facility] LAB Potassium 4.3 3.5 - 5.5 mmol/L LAB CHEMISTRY METHOD 06/09/2024 11:28 AM EST [facility] LAB Chloride 104 96 - [...] MD LAB BLOOD ORDERABLES Fin al Result [facility] LAB [address] [place] [address], * (ABNORMAL) Complete blood count (06/09/2024 7:19 [...] BLOOD ORDERABLES Fin al Result [facility] ([facility]) [facility] [address] [place] [address], documented in this encounter Visit Diagnoses Diagnosis Altered mental status, unspecified Vitamin D deficiency, unspecified documented in this encounter Additional Health Concerns Infection Onset Date Last Indicated Resolved Time 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
--- OUTSIDE RECORDS SUMMARY | 2025-04-08 10:18 | XMS_ITS | Encounter Summary ---
Author Organization [employer] Address [address] [place] [address] Care Team Providers Care Customer Quality Engineer Name Role Phone Lauren Garcia MD Primary Care Provider + Encounter Details Date Type Department Care Team (Late st Contact Info) Description 05/09/2024 Lab Requisition [facility] - Main Lab 299 [facility] [place] [address] Lauren Garcia MD 819 [facility] 1 [place], [place] [phone] Frequency of micturition Social History Tobacco Use [...] reflex microscopic (05/08/2024 8:00 PM EST) Specific [place] Urine 1.017 1.003 - 1.030 LAB URINALYSIS - AUTOMATED METHOD 05/09/2024 11:42 AM [facility] LAB pH, Urine 5.5 5.0 - 8.0 pH LAB URINALYSIS - AUTOMATED METHOD 05/09/2024 11:42 AM [facility] LAB Leukocytes, Urine Large(A) Negative LAB URINALYSIS - AUTOMATED METHOD 05/09/2024 11:42 AM [facility] Nitrite, Urine Negative Negative LAB URINALYSIS - AUTOMATED METHOD 05/09/2024 11:42 AM [facility] Protein, Urine 100(A) <=Trace mg/dL LAB URINALYSIS - AUTOMATED METHOD 05/09/2024 11:42 AM [facility] Glucose, Urine Negative Negative mg/dL LAB URINALYSIS - AUTOMATED METHOD 05/09/2024 11:42 AM [facility] Ketones, Urine Negative Negative mg/dL LAB URINALYSIS - AUTOMATED METHOD 05/09/2024 11:42 AM [facility] Urobilinogen, Urine 0.2 0.2 - 1.0 mg/dL LAB URINALYSIS - AUTOMATED METHOD 05/09/2024 11:42 AM [facility] Bilirubin, Urine Negative Negative LAB URINALYSIS - AUTOMATED METHOD 05/09/2024 11:42 AM [facility] Blood, Urine Trace(A) Negative LAB URINALYSIS - AUTOMATED METHOD 05/09/2024 11:42 AM [facility] RBC, Urine 5.9(H) 0 - 4 /HPF LAB URINALYSIS - AUTOMATED METHOD 05/09/2024 11:42 AM [facility] WBC, Urine 359.9(H) 0 - 4 /HPF LAB URINALYSIS - AUTOMATED METHOD 05/09/2024 11:42 AM [facility] Squamous Epithelial, Urine 4 0 - 60 /LPF LAB URINALYSIS - AUTOMATED METHOD 05/09/2024 11:42 AM EST [facility] Bacteria, Urine Many(A) Negative /HPF LAB URINALYSIS - AUTOMATED METHOD 05/09/2024 11:42 AM EST [facility] Hyaline Casts, Urine 0.4 0 - 3 /LPF LAB URINALYSIS - AUTOMATED METHOD 05/09/2024 11:42 AM EST [facility] Urine Urine specimen from urethra / Unknown 05/08/2024 8:00 PM EST 05/09/2024 10:56 AM EST us Lauren Garcia MD LAB URINE ORDERABLES Fin al Result [facility] [address] [place] [address], * (ABNORMAL) Culture urine (05/08/2024 8:00 PM EST) Culture, Urine 10,000-49,000 CFU/mL Caryl tropicalis(A) JULISSA 05/13/2024 11:12 AM EST [facility] Comment: The organism value for this result has been updated. These results have been appended to the previously preliminary verified report. Edited result: Previously reported as Yeast on 05/12/2024 at 0916 EST. 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) JULISSA 05/13/2024 11:12 AM EST [facility] Comment: The organism value for [...] MICROBIOLOGY - GENER AL ORDERABLES Final Result [facility] [address] [place] [address], [place] [phone] * (ABNORMAL) Urinalysis with reflex microscopic and culture (05/08/2024 8:00 PM EST) Specific [place] Urine 1.017 1.003 - 1.030 LAB URINALYSIS - AUTOMATED METHOD 05/09/2024 11:18 AM [facility] pH, Urine 5.5 5.0 - 8.0 pH LAB URINALYSIS - AUTOMATED METHOD 05/09/2024 11:18 AM [facility] Leukocytes, Urine Large(A) Negative LAB URINALYSIS - AUTOMATED METHOD 05/09/2024 11:18 AM [facility] Nitrite, Urine Negative Negative LAB URINALYSIS - AUTOMATED METHOD 05/09/2024 11:18 AM [facility] Protein, Urine 100(A) <=Trace mg/dL LAB URINALYSIS - AUTOMATED METHOD 05/09/2024 11:18 AM [facility] Glucose, Urine Negative Negative mg/dL LAB URINALYSIS - AUTOMATED METHOD 05/09/2024 11:18 AM [facility] Ketones, Urine Negative Negative mg/dL LAB URINALYSIS - AUTOMATED METHOD 05/09/2024 11:18 AM [facility] Urobilinogen, Urine 0.2 0.2 - 1.0 mg/dL LAB URINALYSIS - AUTOMATED METHOD 05/09/2024 11:18 AM [facility] Bilirubin, Urine Negative Negative LAB URINALYSIS - AUTOMATED METHOD 05/09/2024 11:18 AM [facility] Blood, Urine Trace(A) Negative LAB URINALYSIS - AUTOMATED METHOD 05/09/2024 11:18 AM [facility] RBC, Urine 5.9(H) 0 - 4 /HPF LAB URINALYSIS - AUTOMATED METHOD 05/09/2024 11:18 AM [facility] WBC, Urine 359.9(H) 0 - 4 /HPF LAB URINALYSIS - AUTOMATED METHOD 05/09/2024 11:18 AM [facility] Squamous Epithelial, Urine 4 0 - 60 /LPF LAB URINALYSIS - AUTOMATED METHOD 05/09/2024 11:18 AM [facility] Bacteria, Urine Many(A) Negative /HPF LAB URINALYSIS - AUTOMATED METHOD 05/09/2024 11:18 AM [facility] Hyaline Casts, Urine 0.4 0 - 3 /LPF LAB URINALYSIS - AUTOMATED METHOD 05/09/2024 11:18 AM [facility] Urine Urine specimen from urethra / Unknown 05/08/2024 8:00 PM EST 05/09/2024 10:56 AM EST us Lauren Garcia MD LAB URINE ORDERABLES Fin al Result [facility] [address] [place] [address], documented in this encounter Visit Diagnoses Diagnosis Frequency of micturition Urinary frequency documented in this encounter Additional Health Concerns Infection Onset Date Last Indicated Resolved Time VRE 05/08/2024 05/08/2024 documented as of this encounter Care Teams Customer Quality Engineer Relationship Specialty Start Date End Date Lauren Garcia MD [address] [place] [address] PCP - General Family Medicine 04/15/24 documented as of this encounter
--- OUTSIDE RECORDS SUMMARY | 2025-04-08 10:18 | XMS_ITS | Encounter Summary ---
Author Organization [employer] Address [address] [place] [address] Care Team Providers Care Sorting Cows Worker Name Role Phone Lauren Garcia MD Primary Care Provider + Encounter Details Date Type Department Care Team (Late st Contact Info) Description 04/15/2024 Lab Requisition [facility] - Main Lab 299 [facility] [place] [address] Lauren Garcia MD 819 [facility] 1 [place], [place] [phone] Vitamin D deficiency, unspecified; Pathological fracture, right [...] LAB CHEMISTRY METHOD 04/15/2024 10:58 AM EST [facility] Blood Venous blood specimen / Unknown Venipuncture / Unknown 04/15/2024 7:06 AM EST 04/15/2024 8:53 AM EST Lauren Garcia MD LAB BLOOD ORDERABLES Fin al Result [facility] [address] [place] [address], * Vitamin B12 (04/15/2024 7:06 AM EST) Vitamin B-12 315 250 - 900 pcg/mL LAB CHEMISTRY METHOD 04/15/2024 11:36 AM EST [facility] Blood Venous blood specimen / Unknown Venipuncture / Unknown 04/15/2024 7:06 AM EST 04/15/2024 8:53 AM EST Lauren Garcia MD LAB BLOOD ORDERABLES Fin al Result Performing Organization Address City/[facility]/ZIP Co de Phone Number [facility] [address] [place] [address], * (ABNORMAL) Magnesium (04/15/2024 7:06 AM EST) Pathologist [facility] Magnesium 1.8(L) 1.9 - 2.6 mg/dL LAB CHEMISTRY METHOD 04/15/2024 10:58 AM EST [facility] Blood Venous blood specimen / Unknown Venipuncture / Unknown 04/15/2024 7:06 AM EST 04/15/2024 8:53 AM EST Lauren Garcia MD LAB BLOOD ORDERABLES Fin al Result Performing Organization Address [facility]/ZIP Co de Phone Number [facility] [address] [place] [address], * Folate (04/15/2024 7:06 AM EST) Pathologist [facility] Folate 12.3 2.8 - 17.0 ng/ml LAB CHEMISTRY METHOD 04/15/2024 11:36 AM EST [facility] Blood Venous blood specimen / Unknown Venipuncture / Unknown 04/15/2024 7:06 AM EST 04/15/2024 8:53 AM EST Lauren Garcia MD LAB BLOOD ORDERABLES Fin al Result Performing Organization Address City/[facility]/ZIP Co de Phone Number [facility] [address] [place] [address], * Thyroid stimulating hormone (04/15/2024 7:06 AM EST) TSH 0.65 0.40 - 4.00 mcIU/mL LAB CHEMISTRY METHOD 04/15/2024 10:58 AM EST [facility] Blood Venous blood specimen / Unknown Venipuncture / Unknown 04/15/2024 7:06 AM EST 04/15/2024 8:53 AM EST us Lauren Garcia MD LAB BLOOD ORDERABLES Fin al Result [facility] [address] [place] [address], * (ABNORMAL) Basic metabolic panel (04/15/2024 7:06 [...] LAB CHEMISTRY METHOD 04/15/2024 11:36 AM EST [facility] Calcium 9.9 8.5 - 10.5 mg/dL LAB CHEMISTRY METHOD 04/15/2024 11:36 AM [facility] Blood Venous blood specimen / Unknown Venipuncture / Unknown 04/15/2024 7:06 AM EST 04/15/2024 8:53 AM EST us Lauren Garcia MD LAB BLOOD ORDERABLES Fin al Result [facility] [address] [place] [address], * (ABNORMAL) Complete blood count (04/15/2024 7:06 AM EST) WBC 6.8 4.8 - 10.8 K/mcL LAB HEMETOLOGY METHOD 04/15/2024 10:32 AM [facility] RBC 3.80 3.80 - 4.80 M/[facility] LAB HEMETOLOGY METHOD 04/15/2024 10:32 AM [...] LAB HEMETOLOGY METHOD 04/15/2024 10:32 AM EST [facility] RDW 14.4 11.0 - 15.0 % LAB HEMETOLOGY METHOD 04/15/2024 10:32 AM EST [facility] Platelets 187 130 - 400 K/mcL LAB HEMETOLOGY METHOD 04/15/2024 10:32 AM [facility] MPV 12.2(H) 7.0 - 11.0 FL LAB HEMETOLOGY METHOD 04/15/2024 10:32 AM EST [facility] NRBC 0.0 <1.0 % LAB [...] Result [facility] [address] [place] [address], documented in this encounter Visit Diagnoses Diagnosis Vitamin D deficiency, unspecified Pathological fracture, right tibia, initial encounter for fracture Hypothyroidism, unspecified Essential (primary) hypertension Unspecified essential hypertension documented in this encounter Additional Health Concerns Infection Onset Date Last Indicated Resolved Time VRE 05/08/2024 05/08/2024 documented as of this encounter Care Teams Sorting Cows Worker Relationship Specialty Start Date End Date Lauren Garcia MD [address] [place] [id number] PCP - General Family Medicine 04/15/24 documented as of this encounter
--- OUTSIDE RECORDS SUMMARY | 2025-04-08 10:18 | XMS_ITS | Encounter Summary ---
Author Organization [facility] Address [address] [place] [address] Care Team Providers Care Cartoon Animator Name Role Phone Lauren Garcia MD Primary Care Provider + Encounter Details Date Type Department Care Team (Late st Contact Info) Description 06/25/2024 Lab Requisition [facility] - Main Lab 299 [facility] [place] [address] Lauren Garcia MD [address] [phone] Essential (primary) hypertension Social History Tobacco Use [...] LAB CHEMISTRY METHOD 06/27/2024 1:02 PM EST [facility] Potassium 4.0 3.5 - 5.5 mmol/L LAB CHEMISTRY METHOD 06/27/2024 1:02 PM EST [facility] Chloride 110 96 - 110 mmol/L LAB CHEMISTRY METHOD 06/27/2024 1:02 PM [facility] CO2 21 21 - 32 mmol/L LAB CHEMISTRY METHOD 06/27/2024 1:02 PM [facility] Anion Gap 11 3 - 11 LAB CHEMISTRY METHOD 06/27/2024 1:02 PM [facility] Glucose 86 70 - 100 mg/dL LAB CHEMISTRY METHOD 06/27/2024 1:02 PM [facility] BUN 13 5 - 25 mg/dL LAB CHEMISTRY METHOD 06/27/2024 1:02 PM [facility] Creatinine 1.04 0.50 - 1.10 mg/dL LAB CHEMISTRY METHOD 06/27/2024 1:02 PM [facility] eGFR 52(L) >=60 mL/min/1. 73m2 LAB CHEMISTRY METHOD 06/27/2024 1:02 PM [facility] Comment:Calculation based on the Chronic Kidney Disease Epidemiology Collaboration (CKD-EPI) equation refit without adjustment for race. BUN/Creatinine Ratio 12.5 LAB CHEMISTRY METHOD 06/27/2024 1:02 PM [facility] Calcium 9.9 8.5 - 10.5 mg/dL LAB CHEMISTRY METHOD 06/27/2024 1:02 PM [facility] Blood Venous blood specimen / Unknown Venipuncture / Unknown 06/27/2024 7:52 AM EST 06/27/2024 11:50 AM EST us Lauren Garcia MD LAB BLOOD ORDERABLES Fin al Result [facility] [address] [place] [address], * (ABNORMAL) Complete blood count (06/27/2024 7:52 AM EST) WBC 5.2 4.8 - 10.8 K/mcL LAB HEMETOLOGY METHOD 06/27/2024 1:02 PM [facility] RBC 4.30 3.80 - 4.80 M/mcL LAB HEMETOLOGY METHOD 06/27/2024 1:02 PM [facility] Hemoglobin 11.0(L) 11.5 - 16.0 g/dL LAB HEMETOLOGY METHOD 06/27/2024 1:02 PM [facility] Hematocrit 38.7 35.0 - 47.0 % LAB HEMETOLOGY METHOD 06/27/2024 1:02 PM [facility] MCV 90.6 79.0 - 98.0 FL LAB HEMETOLOGY METHOD 06/27/2024 1:02 PM [facility] MCH 25.8(L) 27.0 - 32.0 pcg LAB HEMETOLOGY METHOD 06/27/2024 1:02 PM [facility] MCHC 28.4(L) 32.0 - 37.0 g/dL LAB HEMETOLOGY METHOD 06/27/2024 1:02 PM [facility] RDW 17.4(H) 11.0 - 15.0 % LAB HEMETOLOGY METHOD 06/27/2024 1:02 PM [facility] Platelets 330 130 - 400 K/mcL LAB HEMETOLOGY METHOD 06/27/2024 1:02 PM [facility] MPV 12.0(H) 7.0 - 11.0 FL LAB HEMETOLOGY METHOD 06/27/2024 1:02 PM [facility] NRBC 0.0 <1.0 % LAB HEMETOLOGY METHOD 06/27/2024 1:02 PM [facility] NRBC Absolute 0.00 <0.10 K/mcL LAB HEMETOLOGY METHOD 06/27/2024 1:02 PM [facility] Blood Venous blood specimen / Unknown Venipuncture / Unknown 06/27/2024 7:52 AM EST 06/27/2024 11:50 AM EST us Lauren Garcia MD LAB BLOOD ORDERABLES Fin al Result [facility] ([facility]) [facility] [address] [place] [address], documented in this encounter Visit Diagnoses Diagnosis Essential (primary) hypertension Unspecified essential hypertension documented in this encounter Additional Health Concerns Infection Onset Date Last Indicated Resolved Time VRE 05/08/2024 05/08/2024 documented as of this encounter Care Teams Cartoon Animator Relationship Specialty Start Date End Date Lauren Garcia MD [address] [place] [phone] PCP - General Family Medicine 04/15/24 documented as of this encounter
--- OUTSIDE RECORDS SUMMARY | 2025-04-08 10:18 | XMS_ITS | Encounter Summary ---
Author Organization [facility] Address [address] [place] [address] Care Team Providers Care Support Team Member Name Role Phone Lauren Garcia MD Primary Care Provider + Encounter Details Date Type Department Care Team (Late st Contact Info) Description 06/23/2024 Lab Requisition [facility] - Main Lab 299 [facility] [place] [address] Lauren Garcia MD [address] [phone] Chronic kidney disease, unspecified Social History Tobacco [...] AM EST) WBC 5.1 4.8 - 10.8 K/[facility] LAB HEMETOLOGY METHOD 06/23/2024 11:34 AM EST [facility] RBC 4.10 3.80 - 4.80 M/[facility] LAB HEMETOLOGY METHOD 06/23/2024 11:34 AM EST [facility] Hemoglobin 10.6(L) 11.5 - 16.0 g/dL LAB HEMETOLOGY METHOD 06/23/2024 11:34 AM EST [facility] Hematocrit 36.1 35.0 - [...] [facility] [address] [place] [address], documented in this encounter Visit Diagnoses Diagnosis Chronic kidney disease, unspecified documented in this encounter Additional Health Concerns Infection Onset Date Last Indicated Resolved Time VRE 05/08/2024 05/08/2024 documented as of this encounter Care Teams Support Team Member Relationship Specialty Start Date End Date Lauren Garcia MD [address] [phone] PCP - General Family Medicine 04/15/24 documented as of this encounter
--- OUTSIDE RECORDS SUMMARY | 2025-04-08 10:18 | XMS_ITS | Clinical Summary ---
Author Organization [address] Address [address] [place] [phone] Phone Care Team Providers Care Sap Pi Architect Name Role Phone Elder, Lauren Salvador MD [...] Last Indicated VRE 05/08/2024 05/08/2024 Insurance MEDICARE [facility] Care Teams Sap Pi Architect Relationship Specialty Start Date End Date Lauren Garcia MD [address] [phone] PCP - General Family Medicine 04/15/24
--- OUTSIDE RECORDS SUMMARY | 2025-04-08 10:18 | XMS_ITS | Encounter Summary ---
Author Organization [employer] Address [address] [place] [address] Care Team Providers Care Senior J2Ee Developer Name Role Phone Lauren Garcia MD Primary Care Provider + Encounter Details Date Type Department Care Team (Late st Contact Info) Description 06/06/2024 Lab Requisition [facility] - Main Lab [address] [facility] [place] [address] Lauren Garcia MD 819 [facility] 1 [place], [place] [phone] Vitamin D deficiency, unspecified; Essential (primary) hypertension [...] * (ABNORMAL) Magnesium (06/06/2024 8:50 AM EST) [facility] Magnesium 1.6(L) 1.9 - 2.6 mg/dL LAB CHEMISTRY METHOD 06/06/2024 4:25 PM EST [facility] Blood Venous blood specimen / Unknown Venipuncture / Unknown 06/06/2024 8:50 AM EST 06/06/2024 11:43 AM EST Lauren Garcia MD LAB BLOOD ORDERABLES Fin al Result Performing Organization Address City/[facility]/ZIP Co de Phone Number [facility] [address] [place] [address], * Folate (06/06/2024 8:50 AM EST) [facility] Folate 8.9 2.8 - 17.0 ng/ml LAB CHEMISTRY METHOD 06/06/2024 4:44 PM EST [facility] Blood Venous blood specimen / Unknown Venipuncture / Unknown 06/06/2024 8:50 AM EST 06/06/2024 11:43 AM EST Lauren Garcia MD LAB BLOOD ORDERABLES Fin al Result [facility] [address] [place] [address], * Vitamin B12 (06/06/2024 8:50 AM EST) [facility] Vitamin B-12 678 250 - 900 pcg/mL LAB CHEMISTRY METHOD 06/06/2024 4:44 PM EST [facility] Blood Venous blood specimen / Unknown Venipuncture / Unknown 06/06/2024 8:50 AM EST 06/06/2024 11:43 AM EST Lauren Garcia MD LAB BLOOD ORDERABLES Fin al Result Performing Organization Address [facility]/ZIP Co de Phone Number [facility] [address] [place] [address], [place] [phone] * Vitamin D 25 hydroxy (06/06/2024 8:50 AM EST) Pathologist [facility] Vit D, 25-Hydroxy 36.0 30.0 - 80.0 ng/mL LAB CHEMISTRY METHOD 06/06/2024 4:22 PM [facility] Blood Venous blood specimen / Unknown Venipuncture / Unknown 06/06/2024 8:50 AM EST 06/06/2024 11:43 AM EST Lauren Garcia MD LAB BLOOD ORDERABLES Fin al Result Performing Organization Address [facility] Co de Phone Number [facility] [address] [place] [address], [place] [phone] * (ABNORMAL) Comprehensive metabolic panel (06/06/2024 8:50 AM EST) [facility] Sodium 138 133 - 145 mmol/L LAB CHEMISTRY METHOD 06/06/2024 5:02 PM [facility] Potassium 4.3 3.5 - 5.5 mmol/L LAB CHEMISTRY METHOD 06/06/2024 5:02 PM [facility] Comment:Hemolysis present Chloride 106 96 - 110 mmol/L LAB CHEMISTRY METHOD 06/06/2024 5:02 PM [facility] CO2 20(L) 21 - 32 mmol/L LAB CHEMISTRY METHOD 06/06/2024 5:02 PM [facility] Anion Gap 12(H) 3 - 11 LAB CHEMISTRY METHOD 06/06/2024 5:02 PM [facility] Glucose 104(H) 70 - 100 mg/dL LAB CHEMISTRY METHOD 06/06/2024 5:02 PM [facility] BUN 32(H) 5 - 25 mg/dL LAB CHEMISTRY METHOD 06/06/2024 5:02 PM [facility] Comment:Results verified by repeat testing Creatinine 2.05(H) 0.50 - 1.10 mg/dL LAB CHEMISTRY METHOD 06/06/2024 5:02 PM [facility] Comment:Results verified by repeat testing eGFR 23(L) >=60 mL/min/1. 73m2 LAB CHEMISTRY METHOD 06/06/2024 5:02 PM [facility] Comment:Calculation based on the Chronic Kidney Disease Epidemiology Collaboration (CKD-EPI) equation refit without adjustment for race. BUN/Creatinine Ratio 15.6 LAB CHEMISTRY METHOD 06/06/2024 5:02 PM [facility] Calcium 9.5 8.5 - 10.5 mg/dL LAB CHEMISTRY METHOD 06/06/2024 5:02 PM [facility] AST (SGOT) 29 10 - 42 unit/L LAB CHEMISTRY METHOD 06/06/2024 5:02 PM [facility] Comment:Hemolysis present ALT (SGPT) 19 10 - 60 unit/L LAB CHEMISTRY METHOD 06/06/2024 5:02 PM [facility] Alkaline Phosphatase 96 42 - 121 unit/L LAB CHEMISTRY METHOD 06/06/2024 5:02 PM [facility] Total Protein 6.2 6.0 - 8.0 g/dL LAB CHEMISTRY METHOD 06/06/2024 5:02 PM [facility] Albumin 2.8(L) 3.2 - 5.0 g/dL LAB CHEMISTRY METHOD 06/06/2024 5:02 PM [facility] Total Bilirubin 1.2 0.0 - 1.4 mg/dL LAB CHEMISTRY METHOD 06/06/2024 5:02 PM [facility] Blood Venous blood specimen / Unknown Venipuncture / Unknown 06/06/2024 8:50 AM EST 06/06/2024 11:43 AM EST us Lauren Garcia MD LAB BLOOD ORDERABLES Fin al Result [facility] [address] [place] [address], * (ABNORMAL) Complete blood count (06/06/2024 8:50 AM EST) [facility] WBC 8.2 4.8 - 10.8 K/mcL LAB HEMETOLOGY METHOD 06/06/2024 12:50 PM [facility] RBC 4.40 3.80 - 4.80 M/mcL LAB HEMETOLOGY METHOD 06/06/2024 12:50 PM [facility] Hemoglobin 11.2(L) 11.5 - 16.0 g/dL LAB HEMETOLOGY METHOD 06/06/2024 12:50 PM [facility] Hematocrit 38.7 35.0 - 47.0 % LAB HEMETOLOGY METHOD 06/06/2024 12:50 PM [facility] MCV 89.0 79.0 - 98.0 FL LAB HEMETOLOGY METHOD 06/06/2024 12:50 PM [facility] MCH 25.7(L) 27.0 - 32.0 pcg LAB HEMETOLOGY METHOD 06/06/2024 12:50 PM [facility] MCHC 28.9(L) 32.0 - 37.0 g/dL LAB HEMETOLOGY METHOD 06/06/2024 12:50 PM [facility] RDW 16.6(H) 11.0 - 15.0 % LAB HEMETOLOGY METHOD 06/06/2024 12:50 PM [facility] Platelets 195 130 - 400 K/mcL LAB HEMETOLOGY METHOD 06/06/2024 12:50 PM EST [facility] MPV 12.2(H) 7.0 - 11.0 FL LAB HEMETOLOGY METHOD 06/06/2024 12:50 PM EST [facility] NRBC 0.0 <1.0 % LAB HEMETOLOG METHOD 06/06/2024 12:50 PM EST [facility] NRBC Absolute 0.00 <0.10 K/mcL LAB HEMETOLOGY METHOD 06/06/2024 12:50 PM EST [facility] Blood Venous blood specimen / Unknown Venipuncture / Unknown 06/06/2024 8:50 AM EST 06/06/2024 11:43 AM EST us Lauren Garcia MD LAB BLOOD ORDERABLES Fin al Result [facility] [address] [place] [address], documented in this encounter Visit Diagnoses Diagnosis Vitamin D deficiency, unspecified Essential (primary) hypertension Unspecified essential hypertension documented in this encounter Additional Health Concerns Infection Onset Date Last Indicated Resolved Time VRE 05/08/2024 05/08/2024 documented as of this encounter Care Teams Senior J2Ee Developer Relationship Specialty Start Date End Date Lauren Garcia MD [address] [place] [phone] PCP - General Family Medicine 04/15/24 documented as of this encounter
--- OUTSIDE RECORDS SUMMARY | 2025-04-08 10:18 | XMS_ITS | Encounter Summary ---
Author Organization [facility] Address [address] [place] [address] Care Team Providers Care Refrigeration Brazer/Solderer Name Role Phone Lauren Garcia MD Primary Care Provider + Encounter Details Date Type Department Care Team (Late st Contact Info) Description 05/23/[address] [facility] - Main Lab 299 [facility] [place] [address] Lauren Garcia MD [address] [phone] Anemia, unspecified Social History Tobacco Use Types [...] LAB CHEMISTRY METHOD 05/23/2024 2:24 PM EST [facility] Potassium 4.0 3.5 - 5.5 mmol/L LAB CHEMISTRY METHOD 05/23/2024 2:24 PM EST [facility] Chloride 108 96 - 110 mmol/L LAB CHEMISTRY METHOD 05/23/2024 2:24 PM [facility] CO2 25 21 - 32 mmol/L LAB CHEMISTRY METHOD 05/23/2024 2:24 PM [facility] Anion Gap 7 3 - 11 LAB CHEMISTRY METHOD 05/23/2024 2:24 PM [facility] Glucose 79 70 - 100 mg/dL LAB CHEMISTRY METHOD 05/23/2024 2:24 PM [facility] BUN 20 5 - 25 mg/dL LAB CHEMISTRY METHOD 05/23/2024 2:24 PM [facility] Creatinine 0.96 0.50 - 1.10 mg/dL LAB CHEMISTRY METHOD 05/23/2024 2:24 PM [facility] eGFR 57(L) >=60 mL/min/1. 73m2 LAB CHEMISTRY METHOD 05/23/2024 2:24 PM [facility] Comment:Calculation based on the Chronic Kidney Disease Epidemiology Collaboration (CKD-EPI) equation refit without adjustment for race. BUN/Creatinine Ratio 20.8 LAB CHEMISTRY METHOD 05/23/2024 2:24 PM [facility] Calcium 9.6 8.5 - 10.5 mg/dL LAB CHEMISTRY METHOD 05/23/2024 2:24 PM [facility] Blood Venous blood specimen / Unknown Venipuncture / Unknown 05/23/2024 7:02 AM EST 05/23/2024 12:18 PM EST us Lauren Garcia MD LAB BLOOD ORDERABLES Fin al Result [facility] [address] [place] [address], * (ABNORMAL) Complete blood count (05/23/2024 7:02 AM EST) WBC 5.6 4.8 - 10.8 K/[facility] LAB HEMETOLOGY METHOD 05/23/2024 1:39 PM [facility] RBC 3.80 3.80 - 4.80 M/mcL LAB HEMETOLOGY METHOD 05/23/2024 1:39 PM [facility] Hemoglobin 9.8(L) 11.5 - 16.0 g/dL LAB HEMETOLOGY METHOD 05/23/2024 1:39 PM [facility] Hematocrit 33.7(L) 35.0 - 47.0 % LAB HEMETOLOGY METHOD 05/23/2024 1:39 PM [facility] MCV 87.8 79.0 - 98.0 FL LAB HEMETOLOGY METHOD 05/23/2024 1:39 PM [facility] MCH 25.5(L) 27.0 - 32.0 pcg LAB HEMETOLOGY METHOD 05/23/2024 1:39 PM [facility] MCHC 29.1(L) 32.0 - 37.0 g/dL LAB HEMETOLOGY METHOD 05/23/2024 1:39 PM [facility] RDW 14.9 11.0 - 15.0 % LAB HEMETOLOGY METHOD 05/23/2024 1:39 PM [facility] Platelets 158 130 - 400 K/mcL LAB HEMETOLOGY METHOD 05/23/2024 1:39 PM [facility] MPV 11.0 7.0 - 11.0 FL LAB HEMETOLOGY METHOD 05/23/2024 1:39 PM [facility] NRBC 0.0 <1.0 % LAB HEMETOLOGY METHOD 05/23/2024 1:39 PM [facility] NRBC Absolute 0.00 <0.10 K/mcL LAB HEMETOLOGY METHOD 05/23/2024 1:39 PM [facility] Blood Venous blood specimen / Unknown Venipuncture / Unknown 05/23/2024 7:02 AM EST 05/23/2024 12:18 PM EST Lauren Garcia MD LAB BLOOD ORDERABLES Fin al Result [facility] [address] [place] [address], documented in this encounter Visit Diagnoses Diagnosis Anemia, unspecified documented in this encounter Additional Health Concerns Infection Onset Date Last Indicated Resolved Time VRE 05/08/2024 05/08/2024 documented as of this encounter Care Teams Refrigeration Brazer/Solderer Relationship Specialty Start Date End Date Lauren Garcia MD [address] [address] PCP - General Family Medicine 04/15/24 documented as of this encounter
--- OUTSIDE RECORDS SUMMARY | 2025-04-08 10:18 | XMS_ITS | Encounter Summary ---
Author Organization [facility] Address [address] [place] [address] Care Team Providers Care Rigger Name Role Phone Lauren Garcia MD Primary Care Provider + Encounter Details Date Type Department Care Team (Late st Contact Info) Description 06/19/2024 Lab Requisition [facility] - Main Lab 299 [facility] [place] [address] Lauren Garcia MD [address] [phone] Essential (primary) hypertension Social History Tobacco Use [...] Fin al Result [facility] [address] [place] [address], * (ABNORMAL) Complete blood count (06/20/2024 6:51 [...] LAB BLOOD ORDERABLES Fin al Result [facility] [address] [place] [address], documented in this encounter Visit Diagnoses Diagnosis Essential (primary) hypertension Unspecified essential hypertension documented in this encounter Additional Health Concerns Infection Onset Date Last Indicated Resolved Time 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
--- OUTSIDE RECORDS SUMMARY | 2025-04-08 10:18 | XMS_ITS | Encounter Summary ---
Author Organization [employer] [facility] Address [address] [place] [address] Care Team Providers Care Dehydration Plant Operator Name Role Phone Lauren Garcia MD Primary Care Provider + Encounter Details Date Type Department Care Team (Late st Contact Info) Description 05/31/2024 Lab Requisition [facility] - Main Lab 299 [facility] [place] [address] Lauren Garcia MD 819 [facility] 1 [place], [place] [phone] Urinary tract infection, site not specified; Altered [...] reflex microscopic (05/30/2024 12:00 PM EST) Specific [place] Urine 1.019 1.003 - 1.030 LAB URINALYSIS - AUTOMATED METHOD 05/31/2024 10:47 AM [facility] pH, Urine 5.5 5.0 - 8.0 pH LAB URINALYSIS - AUTOMATED METHOD 05/31/2024 10:47 AM [facility] Leukocytes, Urine Large(A) Negative LAB URINALYSIS - AUTOMATED METHOD 05/31/2024 10:47 AM [facility] Nitrite, Urine Negative Negative LAB URINALYSIS - AUTOMATED METHOD 05/31/2024 10:47 AM [facility] Protein, Urine Trace <=Trace mg/dL LAB URINALYSIS - AUTOMATED METHOD 05/31/2024 10:47 AM [facility] Glucose, Urine Negative Negative mg/dL LAB URINALYSIS - AUTOMATED METHOD 05/31/2024 10:47 AM [facility] Ketones, Urine Negative Negative mg/dL LAB URINALYSIS - AUTOMATED METHOD 05/31/2024 10:47 AM [facility] Urobilinogen , Urine 1.0 0.2 - 1.0 mg/dL LAB URINALYSIS - AUTOMATED METHOD 05/31/2024 10:47 AM [facility] Bilirubin, Urine Negative Negative LAB URINALYSIS - AUTOMATED METHOD 05/31/2024 10:47 AM [facility] Blood, Urine Trace(A) Negative LAB URINALYSIS - AUTOMATED METHOD 05/31/2024 10:47 AM [facility] RBC, Urine 4.0 0 - 4 /HPF LAB URINALYSIS - AUTOMATED METHOD 05/31/2024 10:47 AM [facility] WBC, Urine 651.5(H) 0 - 4 /HPF LAB URINALYSIS - AUTOMATED METHOD 05/31/2024 10:47 AM [facility] Squamous Epithelial, Urine 74(H) 0 - 60 /LPF LAB URINALYSIS - AUTOMATED METHOD 05/31/2024 10:47 AM [facility] Crystals, Urine Light Calcium Oxalate /LPF 05/31/2024 10:47 AM EST [facility] Bacteria, Urine Many(A) Negative /HPF LAB URINALYSIS - AUTOMATED METHOD 05/31/2024 10:47 AM [facility] Hyaline Casts, Urine 3.0 0 - 3 /LPF LAB URINALYSIS - AUTOMATED METHOD 05/31/2024 10:47 AM [facility] Yeast, Urine Present(A) None /HPF 05/31/2024 10:47 AM [facility] Urine Urine specimen obtained by clean catch procedure / Unknown Non-blood Collection / Unknown 05/30/2024 12:00 PM EST 05/31/2024 9:02 AM EST us Lauren Garcia MD LAB URINE ORDERABLES Fin al Result [facility] [address] [place] [address], * (ABNORMAL) Culture urine (05/30/2024 12:00 PM EST) Culture, Urine >100,000 CFU/mL Escherichia coli(A) JULSISA 06/02/2024 8:13 AM [facility] Urine Urine specimen obtained by clean catch procedure / Unknown Non-blood Collection / Unknown 05/30/2024 12:00 PM EST 05/31/2024 9:02 AM EST [facility] - 06/02/2024 8:13 AM EST [...] MICROBIOLOGY - GENER AL ORDERABLES Final Result [facility] ([facility] [address] [place] [address], documented in this encounter Visit Diagnoses Diagnosis Urinary tract infection, site not specified Altered mental status, unspecified documented in this encounter Additional Health Concerns Infection Onset Date Last Indicated Resolved Time 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
--- OUTSIDE RECORDS SUMMARY | 2025-04-08 10:18 | XMS_ITS | Encounter Summary ---
Author Organization [employer] [facility] Address [address] [place] [address] Care Team Providers Care Laborer [employer] Producing Farm Name Role Phone Lauren Garcia MD Primary Care Provider + Encounter Details Date Type Department Care Team (Late st Contact Info) Description 05/13/2024 Lab Requisition [facility] - Main Lab [address] [facility] [place] [address] Lauren Garcia MD [address] [phone] Chronic kidney disease, unspecified; Essential (primary) hypertension [...] LAB CHEMISTRY METHOD 05/16/2024 1:28 PM EST [facility] Potassium 4.1 3.5 - 5.5 mmol/L LAB CHEMISTRY METHOD 05/16/2024 1:28 PM EST [facility] Chloride 109 96 - 110 mmol/L LAB CHEMISTRY METHOD 05/16/2024 1:28 PM EST [facility] CO2 25 21 - 32 [...] al Result [facility] [address] [place] [address], * (ABNORMAL) Complete blood count (05/16/2024 6:18 AM EST) WBC 6.2 4.8 - 10.8 K/[facility] METHOD 05/16/2024 1:43 PM [facility] MD LAB BLOOD ORDERABLES Fin al Result [facility] [address] [place] [address], documented in this encounter Visit Diagnoses Diagnosis Chronic kidney disease, unspecified Essential (primary) hypertension Unspecified essential hypertension documented in this encounter Additional Health Concerns Infection Onset Date Last Indicated Resolved Time 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
[2025-04-08 10:33] LABS: MANUAL DIFF FLAG NO
[2025-04-08 10:34] LABS: Hematocrit 40.0 % (37.0-47.0); Hemoglobin 12.6 g/dl (12.0-16.0); Imm Gran Abs Auto 0.01 X10*3/uL (0.00-0.03); Imm Gran Pct Auto 0.2 % (0.0-0.4); Lymphocytes Absolute Auto 0.9 X10*3/uL (1.2-4.9); Mean Corpuscular HGB Conc 31.5 g/dl (31.0-35.0); Mean Corpuscular Hemoglobin 28.9 pg (27.0-33.0); Mean Corpuscular Volume 91.7 fL (80.0-98.0); NRBC Abs Auto 0.000 X10*3/uL (0.0-0.012); NRBC Pct Auto 0.0 /100WBC (0.0-0.2); Platelet Count 215 X10*3/uL (160-400); Red Blood Count 4.36 X10*6/uL (4.20-5.50); White Blood Count 5.1 X10*3/uL (4.8-10.8)
--- NOTE | 2025-04-08 10:40 | PC.NURSE ---
ALBARO from [facility]. Patient had unwitnessed fall. + HS on thinners. Denies LOC, dizziness, lightheadedness, vision changes. EMS reports patient had head and shoulder pain, Patient denies pain in ED Patient in C-collar IV 20 G RAC Blood collected/ sent On school lunch monitor NSR Patient awaiting CT scans Plan of care on going
[2025-04-08 10:52] LABS: Alanine Aminotransferase 12 U/L (0-31); Albumin Level 4.0 g/dL (3.5-5.0); Alkaline Phosphatase 90 U/L (39-117); Anion Gap 13 (12-20); Aspartate Amino Transferase 20 U/L (5-31); Blood Urea Nitrogen 19 mg/dL (9-16); Calcium 10.3 mg/dL (8.4-10.2); Carbon Dioxide 25 mmol/L (22-29); Chloride 107 mmol/L (96-108); Creatinine Clr Calc Pharmacy 31.4; Estimated Glomerular Filt Rate 47; Magnesium 1.6 mg/dL (1.6-2.6); Potassium 4.2 mmol/L (3.3-5.1); Sodium 141 mmol/L (135-145); Total Protein 7.0 g/dL (6.5-8.0)
[2025-04-08 11:00] LABS: Troponin-I High Sensitivity 8.7 ng/L (<3.5-17.0)
[2025-04-08 11:09] LABS: Resp Syncy Virus RNA Qual PCR NEGATIVE (Negative); SARS COV2 PCR INHOUSE NEGATIVE (Negative)
--- NOTE | 2025-04-08 14:22 | PC.NURSE ---
C-Collar removed by provider Patient is incontinent of urine purewick in place Patient was incontinent of stool, patient cleaned up Family member Jaime Ellis called wanting update Lashaun gave permission to speak with Jaime Awaiting UA results
[2025-04-08 14:23] LABS: Appearance Urine Cloudy; Glucose Urine UA Negative (Negative); PH 5.5 (5.0-9.0); Specific Gravity - Urine 1.015 (1.005-1.025)
[2025-04-08 14:35] LABS: Cannabinoid Screen Urine Not Detected (Not Detect)
--- OUTSIDE RECORDS SUMMARY | 2025-04-14 19:00 | XMS_ITS | Clinical Summary ---
Author Organization Unknown Care Team Providers Care Hunting Guide Name Role Phone RAFA BUCK, MAY Unavailable Unavailable CORAZON RN, SANDRA Unavailable Unavailable FARHAD CHRIS, JORDIN Unavailable Unavailable Payers Payer Name Policy Type Policy Number Effective Date Expira tion Date MEDICARE - [place] - PDGM [id number] Problems Condition Name Condition Details Condition Category Status Onset Date Resolution Date Last Treatment Date Treating Clinician Comments URINARY TRACT INFECTION, SITE NOT SPECIFIED Active 05-04 00:00: 00 KLEBSIELLA PNEUMONIAE THE CAUSE OF DISEASES CLASSD ELSWHR Active 05-04 00:00: 00 EXTENDED SPECTRUM BETA LACTAMASE (ESBL) RESISTANCE Active 05-04 00:00: 00 HYPOTHYROIDI SM, UNSPECIFIED Active 05-04 00:00: 00 DEM IN OTHER DIS CLASSD ELSWHR, MODERATE, WITH AGITATION Active 05-04 00:00: 00 DEM IN OTHER DISEASES CLASSD ELSWHR, MODERATE, WITH ANXIETY Active 05-04 00:00: 00 DEM IN OTHER DIS CLASSD ELSWHR, MODERATE, WITH MOOD DISTURB Active 05-04 00:00: 00 UNSPECIFIED MOOD [AFFECTIVE] DISORDER Active 05-04 00:00: 00 HYPERTENSIVE CHRONIC KIDNEY DISEASE W STG 1-4/UNSP CHR KDNY Active 05-04 00:00: 00 CHRONIC KIDNEY DISEASE, STAGE 3B Active 05-04 00:00: 00 ANEMIA IN CHRONIC KIDNEY DISEASE Active 05-04 00:00: 00 GASTRO-ESOPH AGEAL REFLUX DISEASE WITHOUT ESOPHAGITIS Active 05-04 00:00: 00 METABOLIC ENCEPHALOPAT HY Active 05-04 00:00: 00 HYPERLIPIDEM IA, UNSPECIFIED Active 05-04 00:00: 00 AGE-RELATED OSTEOPOROSIS W/O CURRENT PATHOLOGICAL FRACTURE Active 05-04 00:00: 00 OTHER CERVICAL DISC DEGENERATION , UNSP CERVICAL REGION Active 05-04 00:00: 00 Obesity, class 1 Active 05-04 00:00: 00 BODY MASS INDEX [BMI] 33.0-33.9, ADULT Active 05-04 00:00: 00 HISTORY OF FALLING Active 05-04 00:00: 00 Problems related to health literacy Active 05-04 00:00: 00 PERSONAL HISTORY OF OTHER VENOUS THROMBOSIS AND EMBOLISM Active 05-04 00:00: 00 PERSONAL HISTORY OF NICOTINE DEPENDENCE Active 05-04 00:00: 00 NURSING HOME (CURRENT) USE OF ASPIRIN Active 05-04 00:00: 00 OTHER [facility] (CURRENT) DRUG THERAPY Active 05-04 00:00: 00 [facility] (CURRENT) USE OF ANTICOAGULAN TS Active 05-04 00:00: 00 Allergies, Adverse Reactions, Alerts Allergy Name Allergy Type Status Severity Reaction(s) Onset Date Inactive Date Treating Clinician Comments NKA Propensity to adverse reactions Active 2025-02 21:24:0 6 Medications Ordered Medication Name Filled Medication Name Start Date Stop Date Current Medication? Ordering Clinician Indication Dosage Frequency Signature (SIG) Comments Components aspirin 81 mg tablet,miguel angel yed release 10-25 00:00: 00 Yes [id number] 1 tablet DAILY 1 tablet DAILY (route: oral) Med Classific ation: Hematolog ical Agents atorvastati n 40 mg tablet 10-25 00:00: 00 Yes [id number] 1 tablet BEDTIME 1 tablet BEDTIME (route: oral) Med Classific ation: Cardiovas cular Therapy Agents lisinopril 20 mg tablet 10-25 00:00: 00 Yes [id number] 1.5 tablet DAILY 1.5 tablet DAILY (route: oral) Med Classific ation: Cardiovas cular Therapy Agents quetiapine 50 mg tablet 10-25 00:00: 00 Yes [id number] 1 tablet 3 TIMES DAILY 1 tablet 3 TIMES DAILY (route: oral) Med Classific ation: Central Nervous System Agents sertraline 50 mg tablet 10-25 00:00: 00 Yes [id number] 1.5 tablet DAILY 1.5 tablet DAILY (route: oral) Med Classific ation: Central Nervous System Agents Xarelto 20 mg tablet 10-25 00:00: 00 Yes [id number] 1 tablet DAILY 1 tablet DAILY (route: oral) Med Classific ation: Hematolog ical Agents cephalexin 250 mg tablet 10-24 00:00: 00 Yes [id number] 1 tablet 3 TIMES A WEEK 1 tablet 3 TIMES A WEEK (route: oral) Med Classific ation: Anti-Infe ctive Agents hydrochloro thiazide 12.5 mg tablet 10-24 00:00: 00 Yes [id number] 1 tablet DAILY 1 tablet DAILY (route: oral) Med Classific ation: Cardiovas cular Therapy Agents levothyroxi ne 50 mcg tablet 10-24 00:00: 00 Yes [id number] 1 tablet DAILY 1 tablet DAILY (route: oral) Med Classific ation: Endocrine omeprazole 20 mg capsule,del ayed release 10-24 00:00: 00 Yes [id number] 1 capsule DAILY 1 capsule DAILY (route: oral) Med Classific ation: Gastroint estinal Therapy Agents ascorbic acid (vitamin C) 250 mg tablet 2024-05 00:00: 00 Yes [id number] 1 tablet DAILY 1 tablet DAILY (route: oral) Med Classific ation: Electroly te Balance-N utritiona l Products Bactrim DS 800 mg-160 mg tablet 2024-05 00:00: 00 02-19 23:59 :00 No [id number] 1 tablet 2 TIMES DAILY 1 tablet 2 TIMES DAILY (route: oral) Med Classific ation: Anti-Infe ctive Agents ferrous gluconate 324 mg (37.5 mg iron) tablet 2024-05 00:00: 00 Yes [id number] 1 tablet DAILY 1 tablet DAILY (route: oral) Med Classific ation: Electroly te Balance-N utritiona l Products Lactobacill us acidophilus 500 million cell capsule 2024-05 00:00: 00 Yes [id number] 1 capsule DAILY 1 capsule DAILY (route: oral) Med Classific ation: Gastroint estinal Therapy Agents loperamide 2 mg tablet 2024-05 00:00: 00 Yes [id number] 1 tablet EVERY 6 HOURS 1 tablet EVERY 6 HOURS (route: oral) Med Classific ation: Gastroint estinal Therapy Agents melatonin 3 mg tablet 2024-05 00:00: 00 Yes [id number] 2 tablet BEDTIME 2 tablet BEDTIME (route: oral) Med Classific ation: Central Nervous System Agents Senna Laxative 8.6 mg tablet 2024-05 00:00: 00 Yes [id number] 1 tablet 2 TIMES DAILY 1 tablet 2 TIMES DAILY (route: oral) Med Classific ation: Gastroint estinal Therapy Agents trazodone 50 mg tablet 2024-05 00:00: 00 Yes [id number] .25 tablet DAILY .25 tablet DAILY (route: oral) Med Classific ation: Central Nervous System Agents Vitamin D3 50 mcg (2,000 unit) tablet 2024-05 00:00: 00 Yes [id number] 1 tablet DAILY 1 tablet DAILY (route: oral) Med Classific ation: Electroly te Balance-N utritiona l Products Vital Signs Vital Name Observation Time Observation Value Commen ts Temperature 2025-04-03 12:24:00.000 97.7 [degF] Temperature 2025-03-28 12:50:00.000 98 [degF] Temperature 2025-03-20 09:20:00.000 98 [degF] Temperature 2025-03-13 11:09:00.000 98.4 [degF] Temperature 2025-03-06 14:01:00.000 96.7 [degF] Temperature 2025-03-06 12:07:00.000 97.9 [degF] Temperature 2025-03-01 16:34:00.000 97.2 [degF] Temperature 2025-02-27 09:38:00.000 97.4 [degF] Temperature 2025-02-22 11:05:00.000 97.8 [degF] Temperature 2025-02-20 09:50:00.000 97.3 [degF] Temperature 2025-02-15 21:35:00.000 97.8 [degF] BMI (%) 2025-02-15 21:35:00.000 33 kg/m2 Height 2025-02-15 21:35:00.000 57 [in_us] Pulse 2025-04-03 12:24:00.000 89 /min Pulse 2025-03-28 12:50:00.000 96 /min Pulse 2025-03-20 09:20:00.000 88 /min Pulse 2025-03-13 11:09:00.000 86 /min Pulse 2025-03-06 14:01:00.000 88 /min Pulse 2025-03-06 12:07:00.000 90 /min Pulse 2025-03-01 16:34:00.000 81 /min Pulse 2025-02-27 09:38:00.000 76 /min Pulse 2025-02-22 11:05:00.000 92 /min Pulse 2025-02-20 09:50:00.000 87 /min Pulse 2025-02-15 21:35:00.000 78 /min O2 Saturation (%) 2025-04-03 12:24:00.000 99 % O2 Saturation (%) 2025-03-28 12:50:00.000 96 % O2 Saturation (%) 2025-03-20 09:24:00.000 96 % O2 Saturation (%) 2025-03-13 11:09:00.000 96 % O2 Saturation (%) 2025-03-06 14:01:00.000 98 % O2 Saturation (%) 2025-03-06 12:07:00.000 96 % O2 Saturation (%) 2025-03-01 16:34:00.000 98 % O2 Saturation (%) 2025-02-27 09:38:00.000 97 % O2 Saturation (%) 2025-02-22 11:05:00.000 95 % O2 Saturation (%) 2025-02-20 09:50:00.000 95 % O2 Saturation (%) 2025-02-15 21:35:00.000 94 % Respirations 2025-04-03 12:24:00.000 18 /min Respirations 2025-03-28 12:50:00.000 20 /min Respirations 2025-03-20 09:20:00.000 20 /min Respirations 2025-03-13 11:09:00.000 20 /min Respirations 2025-03-06 14:01:00.000 18 /min Respirations 2025-03-06 12:07:00.000 20 /min Respirations 2025-03-01 16:34:00.000 18 /min Respirations 2025-02-27 09:38:00.000 18 /min Respirations 2025-02-22 11:05:00.000 20 /min Respirations 2025-02-20 09:50:00.000 18 /min Respirations 2025-02-15 21:35:00.000 20 /min Weight (lbs) 2025-02-15 21:35:00.000 156 [lb_av] Systolic Blood Pressure 2025-04-03 12:24:00.000 124 mm [Hg] Systolic Blood Pressure 2025-03-28 12:50:00.000 140 mm [Hg] Systolic Blood Pressure 2025-03-20 09:20:00.000 120 mm [Hg] Systolic Blood Pressure 2025-03-13 11:09:00.000 128 mm [Hg] Systolic Blood Pressure 2025-03-06 14:01:00.000 124 mm [Hg] Systolic Blood Pressure 2025-03-06 12:07:00.000 118 mm [Hg] Systolic Blood Pressure 2025-03-01 16:34:00.000 122 mm [Hg] Systolic Blood Pressure 2025-02-27 09:38:00.000 126 mm [Hg] Systolic Blood Pressure 2025-02-22 11:05:00.000 150 mm [Hg] Systolic Blood Pressure 2025-02-20 09:50:00.000 122 mm [Hg] Systolic Blood Pressure 2025-02-15 21:35:00.000 112 mm [Hg] Diastolic Blood Pressure 2025-04-03 12:24:00.000 62 mm [Hg] Diastolic Blood Pressure 2025-03-28 12:50:00.000 84 mm [Hg] Diastolic Blood Pressure 2025-03-20 09:20:00.000 72 mm [Hg] Diastolic Blood Pressure 2025-03-13 11:09:00.000 86 mm [Hg] Diastolic Blood Pressure 2025-03-06 14:01:00.000 60 mm [Hg] Diastolic Blood Pressure 2025-03-06 12:07:00.000 60 mm [Hg] Diastolic Blood Pressure 2025-03-01 16:34:00.000 60 mm [Hg] Diastolic Blood Pressure 2025-02-27 09:38:00.000 70 mm [Hg] Diastolic Blood Pressure 2025-02-22 11:05:00.000 68 mm [Hg] Diastolic Blood Pressure 2025-02-20 09:50:00.000 70 mm [Hg] Diastolic Blood Pressure 2025-02-15 21:35:00.000 60 mm [Hg] Plan of Treatment Planned Activity Planned Date Details Comments Future Scheduled Test SKILLED NU RSE TO EVALUATE PATIENT, IDENTIFY PRIMARY AND CO-MORBID CONDITIONS CODED PER CODING GUIDELINES, AND DEVELOP PATIENT SPECIFIC PLAN OF CARE THAT INCLUDES PATIENT GOAL FOR HOME HEALTH. [code = SKILLED NURSE TO EVALUATE PATIENT, IDENTIFY PRIMARY AND CO-MORBID CONDITIONS CODED PER CODING GUIDELINES, AND DEVELOP PATIENT SPECIFIC PLAN OF CARE THAT INCLUDES PATIENT GOAL FOR HOME HEALTH.] Future Scheduled Test SKILLED NU RSE TO ASSESS ANXIETY AND PROVIDE ASSISTANCE TO PATIENT FOR UNDERSTANDING AND MANAGEMENT OF FEELINGS. [code = SKILLED NURSE TO ASSESS ANXIETY AND PROVIDE ASSISTANCE TO PATIENT FOR UNDERSTANDING AND MANAGEMENT OF FEELINGS.] Future Scheduled Test SKILLED NU RSE MAY COLLECT URINE SAMPLE FOR URINE REAGENT STRIP TESTING AND/OR URINALYSIS WITH C S 1-3 PRN IF INDICATED FOR SIGNS AND SYMPTOMS OF UTI. IF REAGENT STRIP TEST IS POSITIVE FOR UTI, SKILLED NURSE TO TAKE URINE SAMPLE TO LAB FOR URINE C S AND REPORT RESULTS TO PHYSICIAN. [code = SKILLED NURSE MAY COLLECT URINE SAMPLE FOR URINE REAGENT STRIP TESTING AND/OR URINALYSIS WITH C S 1-3 PRN IF INDICATED FOR SIGNS AND SYMPTOMS OF UTI. IF REAGENT STRIP TEST IS POSITIVE FOR UTI, SKILLED NURSE TO TAKE URINE SAMPLE TO LAB FOR URINE C S AND REPORT RESULTS TO PHYSICIAN.] Future Scheduled Test SKILLED NU RSE FOR O/A, TEACHING RELATED TO GERD FOR EARLY IDENTIFICATION OF EXACERBATION OF DISEASE PROCESS. [code = SKILLED NURSE FOR O/A, TEACHING RELATED TO GERD FOR EARLY IDENTIFICATION OF EXACERBATION OF DISEASE PROCESS.] Future Scheduled Test SKILLED NU RSE FOR O/A, TEACHING AND MANAGEMENT OF CKD FOR EARLY IDENTIFICATION OF EXACERBATION OF DISEASE PROCESS [code = SKILLED NURSE FOR O/A, TEACHING AND MANAGEMENT OF CKD FOR EARLY IDENTIFICATION OF EXACERBATION OF DISEASE PROCESS] Future Scheduled Test SKILLED NU RSE FOR O/A AND SKILLED TEACHING RELATED TO SIGNS AND SYMPTOMS OF INFECTION AND INFECTION CONTROL MEASURES. [code = SKILLED NURSE FOR O/A AND SKILLED TEACHING RELATED TO SIGNS AND SYMPTOMS OF INFECTION AND INFECTION CONTROL MEASURES.] Future Scheduled Test SKILLED NU RSE FOR O/A AND TEACHING OF ENDOCRINE SYSTEM TO IDENTIFY CHANGES ASSOCIATED WITH EXACERBATION OF HYPOTHYROIDISM FOR EARLY INTERVENTION OF COMPLICATIONS. [code = SKILLED NURSE FOR O/A AND TEACHING OF ENDOCRINE SYSTEM TO IDENTIFY CHANGES ASSOCIATED WITH EXACERBATION OF HYPOTHYROIDISM FOR EARLY INTERVENTION OF COMPLICATIONS.] Future Scheduled Test PHYSICAL T HERAPIST TO EVALUATE PATIENT FOR STRENGTH AND GAIT TRAINING AND FALL PREVENTION [code = PHYSICAL THERAPIST TO EVALUATE PATIENT FOR STRENGTH AND GAIT TRAINING AND FALL PREVENTION] Future Scheduled Test SKILLED NU RSE TO PROVIDE TEACHING ON SIGNS AND SYMPTOMS AND MANAGEMENT OF HYPERTENSION. [code = SKILLED NURSE TO PROVIDE TEACHING ON SIGNS AND SYMPTOMS AND MANAGEMENT OF HYPERTENSION.] Future Scheduled Test SKILLED NU RSE FOR OBSERVATION AND ASSESSMENT TO IDENTIFY CHANGES ASSOCIATED WITH DEMENTIA AND TEACHING RELATED TO SAFETY MEASURES TO PREVENT INJURY, ELOPEMENT RISKS, BEHAVIOR CHANGES, ACTIVITIES, AND ENVIRONMENTAL CHANGES ALL SECONDARY TO IMPAIRED COGNITIVE STATUS. [code = SKILLED NURSE FOR OBSERVATION AND ASSESSMENT TO IDENTIFY CHANGES ASSOCIATED WITH DEMENTIA AND TEACHING RELATED TO SAFETY MEASURES TO PREVENT INJURY, ELOPEMENT RISKS, BEHAVIOR CHANGES, ACTIVITIES, AND ENVIRONMENTAL CHANGES ALL SECONDARY TO IMPAIRED COGNITIVE STATUS.] Future Scheduled Test SKILLED NU RSE FOR O/A AND SKILLED TEACHING RELATED TO SIGNS AND SYMPTOMS AND MANAGEMENT OF ANEMIA. [code = SKILLED NURSE FOR O/A AND SKILLED TEACHING RELATED TO SIGNS AND SYMPTOMS AND MANAGEMENT OF ANEMIA.] Future Scheduled Test SKILLED NU RSE FOR O/A AND SKILLED TEACHING RELATED TO SIGNS AND SYMPTOMS AND MANAGEMENT OF OSTEOPOROSIS, CERVICAL DDD [code = SKILLED NURSE FOR O/A AND SKILLED TEACHING RELATED TO SIGNS AND SYMPTOMS AND MANAGEMENT OF OSTEOPOROSIS, CERVICAL DDD] Future Scheduled Test PATIENT HUERTA S A RISK OF HOSPITALIZATION AND ED USE. SKILLED NURSE TO ESTABLISH SUPPORT MEASURES TO MINIMIZE RISK OF HOSPITALIZATION AND ED USE, AND INSTRUCT PATIENT/CAREGIVER ON METHODS TO REDUCE AVOIDABLE HOSPITALIZATION AND ED USE. [code = PATIENT HAS A RISK OF HOSPITALIZATION AND ED USE. SKILLED NURSE TO ESTABLISH SUPPORT MEASURES TO MINIMIZE RISK OF HOSPITALIZATION AND ED USE, AND INSTRUCT PATIENT/CAREGIVER ON METHODS TO REDUCE AVOIDABLE HOSPITALIZATION AND ED USE.] Future Scheduled Test SKILLED NU RSE TO PROVIDE INSTRUCTION TO PATIENT/CAREGIVER RELATED TO DISCHARGE PLANNING. [code = SKILLED NURSE TO PROVIDE INSTRUCTION TO PATIENT/CAREGIVER RELATED TO DISCHARGE PLANNING.] Future Scheduled Test SKILLED NU RSE TO PERFORM ENVIRONMENTAL SAFETY RISK ASSESSMENT AND FALL RISK ASSESSMENT AND PROVIDE INSTRUCTION TO IMPLEMENT ENVIRONMENTAL SAFETY AND FALL PREVENTION STRATEGIES THROUGHOUT THE CERTIFICATION PERIOD. SKILLED NURSE WILL MAINTAIN SITUATIONAL AWARENESS AND WILL NOTIFY CLINICAL PROFESSOR OF SPANISH AND PHYSICIAN/PROVIDER WITH ANY CHANGE IN CONDITION. [code = SKILLED NURSE TO PERFORM ENVIRONMENTAL SAFETY RISK ASSESSMENT AND FALL RISK ASSESSMENT AND PROVIDE INSTRUCTION TO IMPLEMENT ENVIRONMENTAL SAFETY AND FALL PREVENTION STRATEGIES THROUGHOUT THE CERTIFICATION PERIOD. SKILLED NURSE WILL MAINTAIN SITUATIONAL AWARENESS AND WILL NOTIFY CLINICAL PROFESSOR OF SPANISH AND PHYSICIAN/PROVIDER WITH ANY CHANGE IN CONDITION.] Future Scheduled Test SKILLED NU RSE FOR OBSERVATION AND ASSESSMENT OF PATIENT S PAIN LEVEL AND EFFECTIVENESS OF PAIN MANAGEMENT REGIMEN. SKILLED NURSE TO INSTRUCT PATIENT/CAREGIVER REGARDING PHARMACOLOGIC AND NON-PHARMACOLOGIC PAIN CONTROL MEASURES. SKILLED NURSE TO REPORT TO PHYSICIAN IF PAIN LEVEL IS OUTSIDE OF ESTABLISHED PARAMETERS. [code = SKILLED NURSE FOR OBSERVATION AND ASSESSMENT OF PATIENT S PAIN LEVEL AND EFFECTIVENESS OF PAIN MANAGEMENT REGIMEN. SKILLED NURSE TO INSTRUCT PATIENT/CAREGIVER REGARDING PHARMACOLOGIC AND NON-PHARMACOLOGIC PAIN CONTROL MEASURES. SKILLED NURSE TO REPORT TO PHYSICIAN IF PAIN LEVEL IS OUTSIDE OF ESTABLISHED PARAMETERS.] Future Scheduled Test SKILLED NU RSE TO ASSESS PATIENT'S SKIN INTEGRITY AND INSTRUCT PATIENT/CAREGIVER ON MEASURES TO PREVENT PRESSURE ULCERS. [code = SKILLED NURSE TO ASSESS PATIENT'S SKIN INTEGRITY AND INSTRUCT PATIENT/CAREGIVER ON MEASURES TO PREVENT PRESSURE ULCERS.] Future Scheduled Test SKILLED NU RSE TO REVIEW PATIENT MEDICATIONS (PRESCRIPTION/OTC). INSTRUCT PATIENT/CAREGIVER ON ALL MEDICATIONS INCLUDING PURPOSE, WHEN TO TAKE, IMPORTANCE OF MEDICATION ADHERENCE, MONITORING OF EFFECTIVENESS, ADVERSE DRUG REACTIONS, POSSIBLE SIDE EFFECTS, AND WHEN TO NOTIFY AGENCY OR PHYSICIAN/PROVIDER OF ANY CONCERNS. [code = SKILLED NURSE TO REVIEW PATIENT MEDICATIONS (PRESCRIPTION/OTC). INSTRUCT PATIENT/CAREGIVER ON ALL MEDICATIONS INCLUDING PURPOSE, WHEN TO TAKE, IMPORTANCE OF MEDICATION ADHERENCE, MONITORING OF EFFECTIVENESS, ADVERSE DRUG REACTIONS, POSSIBLE SIDE EFFECTS, AND WHEN TO NOTIFY AGENCY OR PHYSICIAN/PROVIDER OF ANY CONCERNS.] Future Scheduled Test SKILLED NU RSE FOR O/A, TEACHING AND MANAGEMENT OF URINARY TRACT INFECTION. [code = SKILLED NURSE FOR O/A, TEACHING AND MANAGEMENT OF URINARY TRACT INFECTION.] Future Scheduled Test PHYSICAL T HERAPY TO EVALUATE AND TREAT. PHYSICAL THERAPY EVALUATION PERFORMED. NO ADDITIONAL VISITS REQUIRED. PHYSICAL THERAPY EVALUATION ONLY (03/06/25) PATIENT IS A FORGETFUL 89 YO FEMALE WITH PHYSICAL THERAPY REFERRAL AFTER RECENT 4 DAY HOSPITALIZATION DUE TO WEAKNESS AND CONFUSION WITH UNWITNESSED FALL AT [facility] ON 02/06/25, MD DX: UTI. PAST MD HX: HYPERTENSION, FREQUENT UTIS, DEMENTIA, HEART FAILURE, DEPRESSION, CONSTIPATION, GERD, OBESITY AND ANEMIA. FALL HISTORY: UNWITNESSED FALL AT [facility] ON 02/16/25 PLOF: PATIENT ABLE TO TRANSFER AND AMB IN [place] MOD I WITH ROLLATOR PATIENT LIVES IN ASSISTED LIVING FACILITY. SALESPERSON ART OBJECTS ASSISTS A FEW HRS DAILY WITH PERSONAL CARE, LAUNDRY AND COMPANIONSHIP. MEALS ARE PROVIDED BY FACILITY IN DINING ROOM. CLOF: DME: ROLLATOR, GRAB BARS, WALK IN SHOWER WITH MOLDED SEAT, HANDHELD SHOWERHEAD, EMERGENCY PULL CORD IN BATHROOM SAFETY RECOMMENDATIONS: USE ROLLATOR WITH ALL TRANSFERS AND AMB, ADEQUATE FOOTWEAR PATIENT HAS 1+ BILAT LE EDEMA, EDUCATE ON EDEMA CONTROL. BILAT LE ROM WFL, BILAT LE STRENGTH 4+/5. PATIENT REPORTS 0 PAIN AT REST AND WITH ACTIVITY. PATIENT INDEP WITH BED MOBILITY. PATIENT COMPLETED SIT -->STAND FROM ALL HOUSEHOLD SURFACES MOD I WITH ROLLATOR. PATIENT ABLE TO AMB 150' MOD I WITH ROLLATOR, DEMO BILAT RECIPROCAL STEPS WITH ADEQUATE FEET CLEARANCE, 0 LOB. TINETTI = 19/28, FALL RISK. PHYSICAL THERAPY EVAL ONLY PATIENT AT PLOF AND PATIENT NOT RECEPTIVE TO ESTABLISHMENT OF BILAT LE HEP. PATIENT INFORMED ABOUT PHYSICAL THERAPY EVAL ONLY, VERBALIZED ACCEPTANCE. MD NOTIFIED ABOUT PATIENT STATUS AND PT EVAL ONLY. [code = PHYSICAL THERAPY TO EVALUATE AND TREAT. PHYSICAL THERAPY EVALUATION PERFORMED. NO ADDITIONAL VISITS REQUIRED. PHYSICAL THERAPY EVALUATION ONLY (03/06/25) PATIENT IS A FORGETFUL 89 YO FEMALE WITH PHYSICAL THERAPY REFERRAL AFTER RECENT 4 DAY HOSPITALIZATION DUE TO WEAKNESS AND CONFUSION WITH UNWITNESSED FALL AT [facility] ON 02/06/25, MD DX: UTI. PAST MD HX: HYPERTENSION, FREQUENT UTIS, DEMENTIA, HEART FAILURE, DEPRESSION, CONSTIPATION, GERD, OBESITY AND ANEMIA. FALL HISTORY: UNWITNESSED FALL AT [facility] ON 02/16/25 PLOF: PATIENT ABLE TO TRANSFER AND AMB IN [place] MOD I WITH ROLLATOR PATIENT LIVES IN ASSISTED LIVING FACILITY. SALESPERSON ART OBJECTS ASSISTS A FEW HRS DAILY WITH PERSONAL CARE, LAUNDRY AND COMPANIONSHIP. MEALS ARE PROVIDED BY FACILITY IN DINING ROOM. CLOF: DME: ROLLATOR, GRAB BARS, WALK IN SHOWER WITH MOLDED SEAT, HANDHELD SHOWERHEAD, EMERGENCY PULL CORD IN BATHROOM SAFETY RECOMMENDATIONS: USE ROLLATOR WITH ALL TRANSFERS AND AMB, ADEQUATE FOOTWEAR PATIENT HAS 1+ BILAT LE EDEMA, EDUCATE ON EDEMA CONTROL. BILAT LE ROM WFL, BILAT LE STRENGTH 4+/5. PATIENT REPORTS 0 PAIN AT REST AND WITH ACTIVITY. PATIENT INDEP WITH BED MOBILITY. PATIENT COMPLETED SIT -->STAND FROM ALL HOUSEHOLD SURFACES MOD I WITH ROLLATOR. PATIENT ABLE TO AMB 150' MOD I WITH ROLLATOR, DEMO BILAT RECIPROCAL STEPS WITH ADEQUATE FEET CLEARANCE, 0 LOB. TINETTI = , FALL RISK. PHYSICAL THERAPY EVAL ONLY PATIENT AT PLOF AND PATIENT NOT RECEPTIVE TO ESTABLISHMENT OF BILAT LE HEP. PATIENT INFORMED ABOUT PHYSICAL THERAPY EVAL ONLY, VERBALIZED ACCEPTANCE. MD NOTIFIED ABOUT PATIENT STATUS AND PT EVAL ONLY.] Goal Patient Goal - WALK MORE Goal Provider Goal - A PLAN OF CARE WILL BE ESTABLISHED THAT MEETS PATIENT'S [facility] NEEDS AND INCLUDES PATIENT GOAL FOR HOME HEALTH. Goal Provider Goal - SYMPTOMS OF ANXIETY ARE IDENTIFIED AND INTERVENTIONS INITIATED TO ENABLE PATIENT TO UNDERSTAND AND MANAGE FEELINGS THROUGHOUT EPISODE. Goal Provider Goal - URINE SPECIMEN WILL BE OBTAINED PRN FOR SIGNS AND SYMPTOMS OF UTI AND RESULTS WILL BE REPORTED TO PHYSICIAN THROUGHOUT THE CERTIFICATION PERIOD. Goal Provider Goal - EXACERBATIONS OF GASTROINTESTINAL DISEASE WILL BE PROMPTLY IDENTIFIED AND INTERVENTIONS IMPLEMENTED TO MINIMIZE RISKS TO PATIENT BY END OF EPISODE. Goal Provider Goal - PATIENT/CAREGIVER WILL VERBALIZE UNDERSTANDING OF GENITOURINARY DISEASE PROCESS, AND EXACERBATIONS OF GENITOURINARY DISEASE WILL BE PROMPTLY IDENTIFIED FOR EARLY INTERVENTION THROUGHOUT THE CERTIFICATION PERIOD. Goal Provider Goal - PATIENT/CAREGIVER WILL VERBALIZE/DEMONSTRATE UNDERSTANDING OF S/S OF INFECTION AND INFECTION CONTROL MEASURES. SIGNS AND SYMPTOMS OF INFECTION WILL BE IDENTIFIED AND PHYSICIAN NOTIFIED FOR PROMPT INTERVENTION THROUGHOUT THE CERTIFICATION PERIOD. Goal Provider Goal - PATIENT/CAREGIVER WILL VERBALIZE SIGNS AND SYMPTOMS OF EXACERBATION OF ENDOCRINE DIAGNOSIS TO REPORT TO NURSE/PHYSICIAN THROUGHOUT THE CERTIFICATION PERIOD. Goal Provider Goal - A PHYSICAL THERAPY EVALUATION TO BE COMPLETED WITH RECOMMENDATIONS AND/OR WRITTEN PLAN OF TREATMENT ESTABLISHED FOR PHYSICIAN S SIGNATURE. Goal Provider Goal - PATIENT/CAREGIVER WILL VERBALIZE SIGNS AND SYMPTOMS OF HYPERTENSION AND WILL BE ABLE TO DEMONSTRATE ABILITY TO MANAGE EXACERBATION BY END OF THE EPISODE. Goal Provider Goal - PATIENT/CAREGIVER WILL VERBALIZE /DEMONSTRATE APPROPRIATE ENVIRONMENTAL/SAFETY MODIFICATIONS IN RESPONSE TO BEHAVIOR/COGNITIVE CHANGES ASSOCIATED WITH DEMENTIA DIAGNOSIS THROUGHOUT THE CERTIFICATION PERIOD. Goal Provider Goal - PATIENT/CARGIVER WILL VERBALIZE UNDERSTANDING OF ANEMIA INCLUDING SIGNS AND SYMPTOMS, MANAGEMENT OF COMPLICATIONS, AND PRESCRIBED TREATMENT REGIMEN BY END OF EPISODE. Goal Provider Goal - PATIENT/CAREGIVER WILL VERBALIZE UNDERSTANDING OF MUSCULOSKELETAL DISEASE INCLUDING SIGNS AND SYMPTOMS, MANAGEMENT, AND PRESCRIBED TREATMENT REGIMEN BY END OF EPISODE. Goal Provider Goal - PATIENT WILL HAVE SUPPORT MEASURES ESTABLISHED TO PREVENT HOSPITALIZATION AND ED USE AND PATIENT/CAREGIVER WILL VERBALIZE/DEMONSTRATE METHODS TO REDUCE AVOIDABLE HOSPITALIZATION AND ED USE BY END OF EPISODE. Goal Provider Goal - PATIENT/CAREGIVER WILL VERBALIZE UNDERSTANDING OF DISCHARGE PLANNING INSTRUCTIONS BY DATE OF DISCHARGE. Goal Provider Goal - PATIENT/CAREGIVER WILL VERBALIZE/DEMONSTRATE EFFECTIVE ENVIRONMENTAL SAFETY AND FALL PREVENTION STRATEGIES, WILL REMAIN SAFE IN THE COMMUNITY, AND WILL BE FREE OF DANGER TO SELF AND OTHERS THROUGHOUT THE CERTIFICATION PERIOD. Goal Provider Goal - PATIENT/CAREGIVER WILL DEMONSTRATE UNDERSTANDING OF PHARMACOLOGIC AND NONPHARMACOLOGIC PAIN CONTROL MEASURES AND PATIENT WILL HAVE IMPROVEMENT IN PAIN INTERFERING WITH ACTIVITY EVIDENCED BY PAIN AT A LEVEL THAT IS ACCEPTABLE TO THE PATIENT AND PAIN LEVEL WITHIN ESTABLISHED PARAMETERS BY END OF CERTIFICATION PERIOD. Goal Provider Goal - PATIENT/CAREGIVER WILL VERBALIZE UNDERSTANDING OF PRESSURE ULCER PREVENTION BY END OF THE EPISODE. Goal Provider Goal - PATIENT/CAREGIVER WILL VERBALIZE UNDERSTANDING OF EDUCATION PROVIDED ON MEDICATIONS BY THE END OF THE CERTIFICATION PERIOD. Goal Provider Goal - PATIENT/CAREGIVER WILL VERBALIZE UNDERSTANDING OF URINARY TRACT INFECTION DISEASE PROCESS AND MANAGEMENT. PATIENT WILL BE FREE OF S/S OF UTI UPON COMPLETION OF TREATMENT OF UTI. Goal Provider Goal - NONE Encounters Start Date/Time End Date/Time Encounter Type Admission Type Attending [facility] Care Facility Care Department Encounter ID Discharge Date Discharge Status Discharge Condition Discharge Reason Percent Goals Met 2025-02-15 00:00:00 2025-04-15 00:00:00 Outpatient [facility] [id number]
== END 2025-04-08 17:49 | disposition home or self-care (01) ==
PROVIDERS: Registered Nurse Emergency; Emergency Provider Emergency Medicine; PCP Internal Medicine
DX: S49.92XA Unspecified injury of left shoulder and upper arm, initial encounter (principal); R51.9 Headache, unspecified; M25.512 Pain in left shoulder; G30.9 Alzheimer's disease, unspecified; F02.80 Dementia in other diseases classified elsewhere, unspecified severity, without behavioral disturbance, psychotic disturbance, mood disturbance, and anxiety; X58.XXXA Exposure to other specified factors, initial encounter; W19.XXXA Unspecified fall, initial encounter; Y93.9 Activity, unspecified; Y92.099 Unspecified place in other non-institutional residence as the place of occurrence of the external cause; Y99.8 Other external cause status; Z79.899 Other long term (current) drug therapy; Z87.891 Personal history of nicotine dependence
CPT/HCPCS: 36415; 70450; 72125; 73030; 80053; 80307; 81003; 82550; 83735; 84484; 85025; 87637; 93005; 99285

== ENCOUNTER → 2025-04-08 09:54 | Outpatient (BNV) | payer MEDICARE, OTHER, SELFPAY | PROVIDERS: Emergency Provider Emergency Medicine; PCP Internal Medicine; Visit Provider Radiology Diagnostic Radiology | DX: M47.812 Spondylosis without myelopathy or radiculopathy, cervical region (principal); S09.90XA Unspecified injury of head, initial encounter; M25.512 Pain in left shoulder; Z04.3 Encounter for examination and observation following other accident | CPT/HCPCS: 70450; 72125; 73030 ==

== ENCOUNTER → 2025-04-08 09:59 | Outpatient (BNV) | payer MEDICARE, OTHER, SELFPAY | PROVIDERS: Emergency Provider Emergency Medicine; PCP Internal Medicine; Visit Provider Internal Medicine | DX: R94.31 Abnormal electrocardiogram [ECG] [EKG] (principal); Z04.3 Encounter for examination and observation following other accident | CPT/HCPCS: 93010 ==

== ENCOUNTER 2025-04-10 11:32 | Inpatient (IN) | payer MEDICARE, OTHER, SELFPAY ==
[2025-04-10] VITALS (15 sets, daily range): BP systolic 79–146; BP diastolic 40–77; PULSE 73–104; RESP 16–22; TEMP 36.3–36.7; O2SAT 96–100; BMI 29.1
--- NOTE | ~2025-04-10 | CT_ITS ---
CLINICAL HISTORY: resp arrest seizure CT head without contrast Comparison: CT/REG/SR - CT HEAD/BRAIN WO IV CON - 04/08/25 11:11 EST Findings: No intra-axial mass, midline shift, hydrocephalus, or acute hemorrhage. Parenchymal volume loss and white matter disease. The visualized paranasal sinuses and mastoid air cells are normal. The orbits are unremarkable. No skull fracture. Proximal aspects of endotracheal and orogastric tubes are visualized. IMPRESSION: No acute intracranial findings. This document has been electronically signed by: Mg Parra MD on 04/13/2025 02:37:12
--- NOTE | ~2025-04-10 | CT_ITS ---
CLINICAL HISTORY: resp arrest CT abdomen and pelvis without contrast Comparison: CT/SR - CT ABDOMEN PELVIS WITHOUT IV CONTRAST - 02/09/25 09:25 EDT Findings: See same day CT of the chest. 2 cm stone in the gallbladder neck. The gallbladder is mildly distended without wall thickening or pericholecystic fluid. No intrahepatic or extrahepatic biliary tree dilatation. Solid organs are unremarkable. No urolithiasis. Large hiatal hernia with orogastric tube terminating in the stomach. No bowel obstruction, pneumoperitoneum, or pneumatosis. Colonic diverticulosis without evidence of diverticulitis. Normal appendix. Lezama catheter in place. Collapsed urinary bladder. Uterus and adnexa unremarkable. No abdominopelvic lymphadenopathy. No free fluid. Osteopenia. Exaggerated lordosis of the lumbar spine. No acute fractures. IMPRESSION: 2 cm stone in the gallbladder neck without CT evidence of acute cholecystitis. Large hiatal hernia with orogastric tube tip in the stomach. This document has been electronically signed by: Mg Parra MD on 04/13/2025 02:35:46
--- NOTE | ~2025-04-10 | CT_ITS ---
CLINICAL HISTORY: respiratory arrest CT chest without contrast Comparison: CT/SR - CT SOFT TISSUE NECK WO IV CON - 04/13/25 01:03 EST CR - XR CHEST 1V - 04/12/25 21:02 EST Findings: Endotracheal tube tip has been advanced, now lying 1.4 cm above the juan, in satisfactory position. Orogastric tube seen entering the stomach. The heart is normal size. No pericardial effusion. Thoracic aorta is calcified but normal in caliber. Pulmonary arteries are grossly unremarkable 1.6 cm calcified right thyroid nodule. Mediastinum is unremarkable. Bibasilar atelectasis versus pneumonia with small bilateral pleural effusions. No focal consolidation or pneumothorax. See same day CT of the abdomen and pelvis. No acute fractures. Hyperkyphotic thoracic spine. IMPRESSION: Endotracheal tube tip 1.4 cm above the juan, in satisfactory position Bibasilar atelectasis versus pneumonia with small bilateral pleural effusions. 1.6 cm calcified right thyroid nodule. Consider nonemergent thyroid ultrasound. This document has been electronically signed by: Mg Parra MD on 04/13/2025 02:28:27
--- NOTE | ~2025-04-10 | CT_ITS ---
CLINICAL HISTORY: seizure resp arrest CT soft tissue neck without contrast Comparison: CR - XR CHEST 1V - 04/12/25 21:[address]/SR - CT CERVICAL SPINE WO IV CON - 04/08/25 11:11 EST Findings: Endotracheal tube and orogastric tube in place with the tips not visualized. The visualized intracranial contents are unremarkable. No prevertebral fluid. Visualized epiglottis is within normal limits. Pharyngeal mucosal space and parapharyngeal fat are normal. Salivary glands are within normal limits. No sialoliths. Calcified 1.6 cm right thyroid nodule. Visualized lung apices are clear within the limits of significant motion. No acute fractures. Multilevel cervical spondylosis. IMPRESSION: Endotracheal tube and orogastric tube in place with the tips not visualized Calcified 1.6 cm right thyroid nodule. Advise nonemergent thyroid ultrasound. This document has been electronically signed by: Mg Parra MD on 04/13/2025 02:18:51
--- NOTE | ~2025-04-10 | XR_ITS ---
CLINICAL HISTORY: post intubation 1 view chest x-ray Comparison: CR - XR SHOULDER LT MIN 2V - 04/08/25 14:45 EST CR - XR CHEST 1V - 02/16/25 18:25 EDT Findings: Defibrillator pad overlies the mid chest. Endotracheal tube tip is 8.2 cm above the juan and should be advanced. Normal heart size. No focal consolidation, pleural effusion, or pneumothorax. Degenerative changes of both shoulders. Visualized abdomen is unremarkable. IMPRESSION: Endotracheal tube tip 8.2 cm above the juan and should be advanced This document has been electronically signed by: Mg Parra MD on 04/12/2025 21:50:09
--- NOTE | ~2025-04-10 | US_ITS ---
EXAMINATION: US RETROPERITONEUM LIMITED HISTORY: GISSELL, renal and bladder TECHNIQUE: Real-time grayscale ultrasound imaging of the kidneys was performed and images were reviewed. COMPARISON: There are no prior studies available for comparison. FINDINGS: Right kidney: The right kidney measures 9.0 x 4.2 x 3.5 cm. There is renal cortical thinning. There are no masses. There is no hydronephrosis or renal calculi. Left Kidney: The left kidney measures 8.2 x 3.7 x 3.5 cm. There is renal cortical thinning. There are no masses. There is no hydronephrosis or renal calculi. The urinary bladder is grossly unremarkable. Bilateral ureteral jets are not identified. Incidental note is made of cholelithiasis. US/US retroperitoneal limited IMPRESSION: Bilateral renal cortical thinning, consistent with chronic medical renal disease. No hydronephrosis. Electronically signed by: Denys Carlos MD 04/24/2025 07:04 AM [facility]
--- NOTE | 2025-04-10 12:05 | ED.GENADULT ---
HPI - General Adult General Chief complaint: Behavioral Concerns Stated complaint: AGGRESSIVE HITTING AND BITING STAFF Time Seen by Provider: 04/10/25 11:46 Source: patient Mode of arrival: ambulatory Limitations: no limitations History of Present Illness ED Provider: Dr. Conley HPI narrative: 89-year-old female history of dementia presents from [facility] assisted living [facility] for agitation. We will patient was aggressive. Throwing walker and budding people. Patient was given 3 mg of Versed IM for aggressive behavior. Patient is not complaining of any pain on arrival. No medical complaints at this time. Patient denies any dysuria. Related Data Home Medications ?Medication ?Instructions ?Recorded ?Confirmed ascorbic acid (vitamin C) 250 mg 250 mg PO DAILY 11/13/24 04/07/25 tablet (Vitamin C) aspirin 81 mg tablet,delayed 81 mg PO DAILY 11/13/24 04/07/25 release atorvastatin 40 mg tablet 40 mg PO BEDTIME 11/13/24 04/07/25 cholecalciferol (vitamin D3) 50 50 mcg PO DAILY 11/13/24 04/07/25 mcg (2,000 unit) capsule (Vitamin D3) hydrochlorothiazide 12.5 mg tablet 12.5 mg PO DAILY 11/13/24 04/07/25 levothyroxine 50 mcg tablet 50 mcg PO DAILY@0600 11/13/24 04/07/25 lisinopril 10 mg tablet 15 mg PO DAILY 11/13/24 04/07/25 sertraline 50 mg tablet 75 mg PO DAILY 11/13/24 04/07/25 magnesium hydroxide 400 mg/5 mL 30 ml PO DAILY PRN Constipation 11/14/24 04/07/25 oral suspension (Milk of Magnesia) melatonin 3 mg tablet 6 mg PO BEDTIME 11/14/24 04/07/25 rivaroxaban 20 mg tablet (Xarelto) 20 mg PO DAILY@0730 11/14/24 04/07/25 sennosides 8.6 mg tablet (senna) 8.6 mg PO BID PRN Constipation 11/14/24 04/07/25 ferrous gluconate 324 mg (38 mg 324 mg PO DAILY 12/13/24 04/07/25 iron) tablet quetiapine 50 mg tablet 50 mg PO TID@0700,1200,1600 12/13/24 04/07/25 trazodone 50 mg tablet 12.5 mg PO DAILY@1600 12/13/24 04/07/25 zinc oxide 13 % topical cream 1 appl topical BID 12/13/24 04/07/25 (Desitin Daily Defense) Lactobacillus acidophilus 500 500 mmu cells PO DAILY 02/09/25 04/07/25 million cell capsule cephalexin 250 mg tablet 250 mg PO MOWEFR@0900 02/09/25 04/07/25 cholecalciferol (vitamin D3) 1,250 1,250 mcg PO QMONTH 02/09/25 04/07/25 mcg (50,000 unit) tablet loperamide 2 mg tablet 2 mg PO Q6H PRN Loose Stool 02/09/25 04/07/25 omeprazole 20 mg capsule,delayed 20 mg PO BID@0630,1630 02/09/25 04/07/25 release Previous Rx's ?Medication ?Instructions ?Recorded sulfamethoxazole 800 1 tab PO BID #10 tabs 02/13/25 mg-trimethoprim 160 mg tablet (Bactrim DS) Allergies Allergy/AdvReac Type Severity Reaction Status Date / Time No Known Allergies Allergy Verified 04/10/25 11:56 Review of Systems Review of Systems: Pertinent review of systems as mentioned in HPI. All other system otherwise negative. [facility] Past Medical History [facility] Narrative: Medical history as mentioned in HPI Medical History Dementia with agitation Aggressive behavior Hiatal hernia History of DVT (deep vein thrombosis) HTN (hypertension) Hypothyroid Recurrent UTI HLD (hyperlipidemia) Dementia Surgical History History of ankle surgery H/O colonoscopy Social History Social History Household Members: Unknown / Unable to assess Housing: Unknown / Unable to assess Housing Other:: Hari Adler Are you a primary ocular care aide to a significant other at home: No Do you presently have visiting nurse or other home services: Yes Alcohol intake: former Patient Tobacco Use Status: Former Tobacco user Tobacco use type: Cigarette Smoked in Last 30 Days: No e-Cigarette/Vaping Use: Former Use Use of substances other than those prescribed or required for medical reasons: No Advance Directives: Yes Advance Directives Date on File: 11/21/24 service: No Physical Exam ED Exam Exam: General: Resting in a stretcher peacefully Head: Normacephalic, atraumatic ENT: oral mucosa moist, neck supple, no tracheal deviation Cardiovascular: regular rate, regular rhythm, no murmurs, rubbing, gallops Respiratory: CTAB, no wheeze, rales, rhonchi Gastrointestinal: Soft, non distended, non tender, non guarding Extremities: No limb pain or swelling, no calf tenderness Neurological: Awake and alert, no facial droop noted Skin: Warm and dry Psychiatric: Appropriate mood and thoughts Vital Signs: Vital Signs - 24 hr 04/10/25 11:46 04/10/25 11:57 04/10/25 13:59 Temperature 97.4 F Pulse Rate 87 86 73 Respiratory Rate 20 20 18 Blood Pressure 103/44 L 116/58 L Pulse Oximetry 96 97 Oxygen Delivery Method Room Air Room Air BMI result Body Mass Index 29.1 Medications Administered Discontinued Medications Generic Name Dose Route Start Last Admin Trade Name Freq PRN Reason Stop Dose Admin Lactated Ringer's 1,000 mls @ 999 mls/hr 04/10/25 13:00 04/10/25 15:17 Lr IV 04/10/25 14:00 Infused .Q1H1M NESS Infusion Ceftriaxone Sodium 2 gm/ 50 mls @ 100 mls/hr 04/10/25 15:41 04/10/25 16:08 Sodium Chloride IV 04/10/25 16:10 100 mls/hr ONCE ONE Administration Medical Decision Making Medical Decision Making MDM Narrative: 89-year-old female history of dementia presenting to ER today for evaluation of agitation. Patient was given IM Versed in route. She is asleep and somnolent resting in a stretcher. We will continue to monitor her airway at this time. No signs of immediate airway compromise Basic lab work will be obtained UA will be obtained to screen for any signs of UTI. No sign of leukocytosis on lab work. Slight anemia at 11.3, patient's UA shows slight bump in creatinine 1.90. This is elevated compared to her baseline creatinine was 1.09. Patient does not appear to have any abdominal pain. Patient's UA does show signs of UTI. Previous culture shows Klebsiella pneumonia resistant to majority of antibiotic. Sensitive to Bactrim. We will plan to give patient a dose of p.o. Bactrim. She does have elevated creatinine level indicative of acute kidney injury. We will plan to admit the patient to the hospital. She has been back and forth from the ER. She had multiple visits a total of 10 ER visits since November. Patient will likely need long-term care placement as well after addressing her acute issues. Attempted to call orly Sandoval via number on file however unable to reach him. Differential Diagnosis Differential Diagnoses: The differential diagnosis associated with the presentation includes UTI, dehydration, progression of dementia, encephalopathy Lab Data MDM Lab Attestation statement: I reviewed the patient's lab results. 04/10/25 12:36 04/10/25 12:36 Labs: Lab Results 04/10/25 04/10/25 Range/Units 12:36 15:25 WBC 5.1 (4.8-10.8) X10*3/uL RBC 3.97 L (4.20-5.50) X10*6/uL Hgb 11.3 L (12.0-16.0) g/dl Hct 35.7 L (37.0-47.0) % MCV 89.9 (80.0-98.0) fL MCH 28.5 (27.0-33.0) pg MCHC 31.7 (31.0-35.0) g/dl RDW 13.5 (11.0-16.0) % Plt Count 168 (160-400) X10*3/uL MPV 11.6 (9.4-12.3) fL Immature Gran % (Auto) 0.2 (0.0-0.4) % Neut % (Auto) 73.5 H (45-73) % Lymph % (Auto) 16.4 L (20-40) % [place] % (Auto) 6.3 (2-11) % Eos % (Auto) 2.4 (0-4) % Baso % (Auto) 1.2 (0-2) % Lymph # (Auto) 0.8 L (1.2-4.9) X10*3/uL [place] # (Auto) 0.3 (0.1-1.2) X10*3/uL Eos # (Auto) 0.1 (0.0-0.4) X10*3/uL Baso # (Auto) 0.1 (0.0-0.2) X10*3/uL Abs Immat Gran (auto) 0.01 (0.00-0.03) X10*3/uL Absolute Neuts (auto) 3.7 (2.0-8.3) x10*3/uL Absolute Nucleated RBC 0.000 (0.0-0.012) X10*3/uL Nucleated RBC % (auto) 0.0 (0.0-0.2) /100WBC Smear Tech's Comments VERIFIED Sodium 140 (135-145) mmol/L Potassium 4.2 (3.3-5.1) mmol/L Chloride 108 (96-108) mmol/L Carbon Dioxide 22 (22-29) mmol/L Anion Gap 14 (12-20) BUN 33 H (9-16) mg/dL Creatinine 1.90 H (0.5-1.4) mg/dL Estim Creat Clear Calc 17.5 Estimated GFR 25 Random Glucose 139 H (60-115) mg/dL Calcium 9.5 D (8.4-10.2) mg/dL TSH 0.25 L (0.32-4.0) uIU/mL Free T4 1.16 (0.71-1.85) ng/dL Urine Color Yellow Urine Appearance Cloudy Urine pH 7.0 (5.0-9.0) Ur Specific [place] 1.015 (1.005-1.025) Urine Protein Trace (Neg-Trace) mg/dL Urine Glucose (UA) Negative (Negative) mg/dL Urine Ketones Negative (Negative) mg/dL Urine Blood Negative (Negative) Urine Nitrite Positive H (Negative) Ur Leukocyte Esterase Large (3+) H (Negative) Urine RBC 0-2 (0-2) /HPF Urine WBC >50 H (0-5) /HPF Ur Squamous Epith Cells 0-2 (0-2) /HPF Urine Bacteria 4+ (None Seen) Hyaline Casts >20 (0-2) /LPF Chronic Conditions Dementia Critical Care Time Critical Care Time Critical Care Time: Yes Total Critical Care Time: 40 Attestation: Time is exclusive of separately billable procedures. Time includes: direct patient care, patient reassessment, coordination of patient care, interpretation of data (laboratory data, pulse oximetry, arterial blood gases and chest xrays), review of patient's medical records, medical consultation and documentation of patient care. Procedures excluded from critical care time: central intravenous line placement and electrocardiography. Discharge Plan Discharge Clinical Impression: Aggressive behavior, GISSELL (acute kidney injury) UTI (urinary tract infection) Qualifiers: Urinary tract infection type: site unspecified Hematuria presence: without hematuria Qualified Code(s): N39.0 - Urinary tract infection, site not specified Patient Disposition: Admitted As Inpatient Print Language: Greek
[2025-04-10 12:57] LABS: Anion Gap 14 (12-20); Blood Urea Nitrogen 33 mg/dL (9-16); Calcium 9.5 mg/dL (8.4-10.2); Carbon Dioxide 22 mmol/L (22-29); Chloride 108 mmol/L (96-108); Creatinine Clr Calc Pharmacy 17.5; Estimated Glomerular Filt Rate 25; Potassium 4.2 mmol/L (3.3-5.1); Sodium 140 mmol/L (135-145)
[2025-04-10 13:01] LABS: Hematocrit 35.7 % (37.0-47.0); Hemoglobin 11.3 g/dl (12.0-16.0); Imm Gran Abs Auto 0.01 X10*3/uL (0.00-0.03); Imm Gran Pct Auto 0.2 % (0.0-0.4); Lymphocytes Absolute Auto 0.8 X10*3/uL (1.2-4.9); MANUAL DIFF FLAG SCAN; Mean Corpuscular HGB Conc 31.7 g/dl (31.0-35.0); Mean Corpuscular Hemoglobin 28.5 pg (27.0-33.0); Mean Corpuscular Volume 89.9 fL (80.0-98.0); NRBC Abs Auto 0.000 X10*3/uL (0.0-0.012); NRBC Pct Auto 0.0 /100WBC (0.0-0.2); PLT CLUMP 1; Red Blood Count 3.97 X10*6/uL (4.20-5.50); SCAN SMEAR FLAG 1
[2025-04-10 13:16] LABS: Platelet Count 168 X10*3/uL (160-400); White Blood Count 5.1 X10*3/uL (4.8-10.8)
[2025-04-10] MEDS: Lactated Ringers 1,000 ML 999 ML IV ×2 (13:35→16:35)
[2025-04-10 14:15] LABS: Free T4 (Free Thyroxine) 1.16 ng/dL (0.71-1.85)
[2025-04-10 15:38] LABS: Appearance Urine Cloudy; Glucose Urine UA Negative (Negative); PH 7.0 (5.0-9.0); Specific Gravity - Urine 1.015 (1.005-1.025); UMIC TRIGGER UA YES
[2025-04-10] MEDS: Sulfamethox/Trimeth 800/160 TABLET 1 TAB PO (16:36)
--- NOTE | 2025-04-10 17:36 | PM.IMHP ---
History of Present Illness Date of Service: 04/10/25 Chief Complaint: agitation 89yo F with dementia with behavioral agitation, recurrent UTIs including ESBL Klebsiella pneumoniae, hx DVT on Xarelto now, HTN, and HLD currently residing at an assisted living facility who has had 5 visits to the ED over the last week for behavioral agitation, and 10 visits since November. She has been found multiple times on the ground with no witnessed fall. Head CTs on 04/04, 04/07, and 04/08/25 without any bleed. Reportedly became aggressive towards [facility] staff and fellow residents today, biting one of them, and was sent into the ED. She was given IV Versed by EMS and is now calm. Denies any pain but she is a poor historian as she is quite disoriented. History per discussion over the phone with her son Huber, her HCP. Pyuria and nitrituria noted on urinalysis and SCr up to 1.9 from a baseline of around 1. Her PO fluid intake is poor. She was given IV LR, IV ceftriaxone, and PO TMP-SMX. Review of Systems Review of Systems: Yes Unobtainable due to mental status [facility] Medical History Dementia with agitation Aggressive behavior Hiatal hernia History of DVT (deep vein thrombosis) HTN (hypertension) Hypothyroid Recurrent UTI HLD (hyperlipidemia) Dementia Surgical History History of ankle surgery H/O colonoscopy Social History Household Members: Unknown / Unable to assess Housing: Unknown / Unable to assess Housing Other:: Hari Adler Are you a primary lawn care professional to a significant other at home: No Do you presently have visiting nurse or other home services: Yes Alcohol intake: former Patient Tobacco Use Status: Former Tobacco user Tobacco use type: Cigarette Smoked in Last 30 Days: No e-Cigarette/Vaping Use: Former Use Use of substances other than those prescribed or required for medical reasons: No Advance Directives: Yes Advance Directives Date on File: 11/21/24 service: No Meds Allergies Allergy/AdvReac Type Severity Reaction Status Date / Time No Known Allergies Allergy Verified 04/10/25 11:56 Active Medications: Current Medications Acetaminophen (Acetaminophen 325 Mg Tablet) 650 mg PO Q6H PRN PRN Reason: Pain, Mild 1-3,fever,headache Calcium Carbonate (Calcium Carbonate 750 Mg Tab.Chew) 750 mg PO Q4H PRN PRN Reason: Heartburn Magnesium Hydroxide (Milk Of Magnesia 30 Ml Oral.Susp) 30 ml PO DAILY PRN PRN Reason: Constipation Melatonin (Melatonin 3 Mg Tablet) 6 mg PO BEDTIME PRN PRN Reason: Insomnia Meropenem (Meropenem 500 Mg Vial) 500 mg IVPUSH Q12H [facility] Last Admin: 04/10/25 17:21 Dose: 500 mg Ondansetron HCl (Ondansetron Hcl 4 Mg/2 Ml Vial) 4 mg IVPUSH Q8H PRN PRN Reason: Nausea and Vomiting Sodium Chloride (0.9 % Sodium Chloride Flush 3 Ml Syringe) 3 ml IVFLUSH QSHIFT [facility] Home Medications ?Medication ?Instructions ?Recorded ?Confirmed ?Last Taken ?Type ascorbic acid (vitamin C) 250 mg 250 mg PO DAILY 11/13/24 04/07/25 Unknown History tablet (Vitamin C) aspirin 81 mg tablet,delayed 81 mg PO DAILY 11/13/24 04/10/25 11/12/24 History release atorvastatin 40 mg tablet 40 mg PO BEDTIME 11/13/24 04/10/25 Unknown History cholecalciferol (vitamin D3) 50 50 mcg PO DAILY 11/13/24 04/07/25 Unknown History mcg (2,000 unit) capsule (Vitamin D3) hydrochlorothiazide 12.5 mg tablet 12.5 mg PO DAILY 11/13/24 04/07/25 Unknown History levothyroxine 50 mcg tablet 50 mcg PO DAILY@0600 11/13/24 04/10/25 Unknown History lisinopril 10 mg tablet 15 mg PO DAILY 11/13/24 04/07/25 Unknown History sertraline 50 mg tablet 75 mg PO DAILY 11/13/24 04/07/25 Unknown History magnesium hydroxide 400 mg/5 mL 30 ml PO DAILY PRN Constipation 11/14/24 04/07/25 Unknown History oral suspension (Milk of Magnesia) melatonin 3 mg tablet 6 mg PO BEDTIME 11/14/24 04/07/25 Unknown History sennosides 8.6 mg tablet (senna) 8.6 mg PO BID PRN Constipation 11/14/24 04/07/25 Unknown History ferrous gluconate 324 mg (38 mg 324 mg PO DAILY 12/13/24 04/10/25 Unknown History iron) tablet quetiapine 50 mg tablet 50 mg PO TID@0700,1200,1600 12/13/24 04/07/25 Unknown History trazodone 50 mg tablet 12.5 mg PO DAILY@1600 12/13/24 04/07/25 Unknown History zinc oxide 13 % topical cream 1 appl topical BID 12/13/24 04/07/25 Unknown History (Desitin Daily Defense) Lactobacillus acidophilus 500 500 mmu cells PO DAILY 02/09/25 04/10/25 Unknown History million cell capsule cephalexin 250 mg tablet 250 mg PO MOWEFR@0900 02/09/25 04/10/25 Unknown History cholecalciferol (vitamin D3) 1,250 1,250 mcg PO QMONTH 02/09/25 04/07/25 Unknown History mcg (50,000 unit) tablet loperamide 2 mg tablet 2 mg PO Q6H PRN Loose Stool 02/09/25 04/07/25 Unknown History omeprazole 20 mg capsule,delayed 20 mg PO BID@0630,1630 02/09/25 04/07/25 Unknown History release amlodipine 5 mg tablet 5 mg PO DAILY 04/10/25 04/10/25 Unknown History cranberry extract 250 mg capsule 250 mg PO DAILY 04/10/25 04/10/25 Unknown History rivaroxaban 10 mg tablet (Xarelto) 10 mg PO DAILY 04/10/25 04/10/25 Unknown History Physical Exam Vital Signs and Narrative: Vital Signs: Last Vital Signs Temp 97.9 F 04/10/25 16:39 Pulse 80 04/10/25 16:39 Resp 22 H 04/10/25 16:39 BP 133/64 04/10/25 16:39 Pulse Ox 98 04/10/25 16:39 O2 Del Method Room Air 04/10/25 16:39 BMI result Body Mass Index 29.1 Gen: in no acute distress HEENT: sclera anicteric, moist mucus membranes Neck: supple Lungs: clear to auscultation bilaterally Heart: regular rate and rhythm, no murmurs Abd: soft, non-tender, non-distended Ext: no edema Skin: warm/well-perfused Neuro: alert, oriented to self but not place/date/situation, moves all extremities Psych: appropriate affect Results Labs 04/10/25 12:36 04/10/25 12:36 Labs: Laboratory Results - last 24 hr 04/10/25 04/10/25 12:36 15:25 MCV 89.9 MCH 28.5 MCHC 31.7 RDW 13.5 Plt Count 168 MPV 11.6 Immature Gran % (Auto) 0.2 Neut % (Auto) 73.5 H Lymph % (Auto) 16.4 L [place] % (Auto) 6.3 Eos % (Auto) 2.4 Baso % (Auto) 1.2 Lymph # (Auto) 0.8 L [place] # (Auto) 0.3 Eos # (Auto) 0.1 Baso # (Auto) 0.1 Abs Immat Gran (auto) 0.01 Absolute Neuts (auto) 3.7 Absolute Nucleated RBC 0.000 Nucleated RBC % (auto) 0.0 Smear Tech's Comments VERIFIED Anion Gap 14 Estim Creat Clear Calc 17.5 Estimated GFR 25 Random Glucose 139 H Calcium 9.5 D TSH 0.25 L Free T4 1.16 Urine Color Yellow Urine Appearance Cloudy Urine pH 7.0 Ur Specific [place] 1.015 Urine Protein Trace Urine Glucose (UA) Negative Urine Ketones Negative Urine Blood Negative Urine Nitrite Positive H Ur Leukocyte Esterase Large (3+) H Urine RBC 0-2 Urine WBC >50 H Ur Squamous Epith Cells 0-2 Urine Bacteria 4+ Hyaline Casts >20 Assessment and Plan (1) Aggressive behavior: Status: Acute Plan 89yo F with dementia with behavioral agitation, recurrent UTIs including ESBL Klebsiella pneumoniae, hx DVT on Xarelto now, HTN, and HLD residing at an [facility] with more frequent ER visits for behavioral agitation, confusion, and unwitnessed falls. Found to have GISSELL and UTI. GISSELL, probably prerenal - admit to M/S, give IV NS, recheck BMP in AM, hold HCTZ + lisinopril UTI, hx ESBL - follow UCx, start meropenem dementia with behavioral agitation - continue sertraline + quetiapine + trazodone ; Psychiatry consult; may benefit from stabilization in geriatric psychiatry unit once medically cleared hx DVT: Xarelto HLD: atorvastatin HTN: hold HCTZ + lisinopril hypothyroidism: LT4 VTE ppx: Xarelto dispo: clearly not safe to return to [facility]; family interested in long-term care options eventually code status: full I anticipate that the patient will stay at least 2 midnights as an inpatient in the hospital due to the above reasons. It is neither reasonable nor safe to care for them in a less acute setting. Quality Stroke Does the patient have a stroke diagnosis?: No VTE Prior VTE?: No VTE Risk Level:: Medical - moderate - high VTE Device Contraindication: N/A - Device Ordered VTE Drug Contraindication: N/A - Med Ordered
--- NOTE | 2025-04-10 17:51 | PC.NURSE ---
Bladder scan 156mL, will continue to monitor
--- NOTE | 2025-04-10 18:01 | PHA.MEDREC ---
Addendum entered by Jennifer Camarillo RPh 04/11/25 09:30: Called assisted living center. Pt is no longer on amlodipine, this was removed from the med list. Original Note: Pharmacy Consult ? Medication Reconciliation Pharmacy has completed the medication reconciliation.Med rec complete except question amlodipine. Is listedin assisted living list but looks like last fill is in february for 15 days. Will confirm with facility in am when they have staff available
--- NOTE | 2025-04-10 18:34 | PC.NURSE ---
Pt presented to ED via EMS from [facility] for behavioral concerns, violent with staff and other members. EMS had to give 3mg of versed IM for violent behavior. Pt has been calm and cooperative here, resting in bed. Plan to admit for confusion, UTI and then CM. Son does not feel pt can safely go back to her current living situation. Jaime her son [phone]
--- NOTE | 2025-04-10 18:36 | PC.NURSE ---
Pt adamantly denied HI or SI on arrival. Pt changed into safety clothing as precaution. Belongings at bedside, only clothing. IV in the left AC from EMS.
--- NOTE | 2025-04-10 19:29 | PC.NURSE ---
20 g IV left AC
--- NOTE | 2025-04-10 19:49 | PC.NURSE ---
Assumed care of pt. Pt resting on stretcher at this time finishing up her dinner. Pt has no complaints at this time, all needs met. Call reddy within reach.
--- NOTE | 2025-04-10 20:14 | PC.NURSE ---
Pt refused nighttime medications. This RN provided education on the importance of taking prescribed medications. Pt continued to refuse meds.
--- NOTE | 2025-04-10 20:30 | PC.NURSE ---
Late entry: At approximately 2029, pt was found to be ripping off monitor cords and attempting to get out of bed. When attempting to redirect pt, she became extremely combative, attempting to hit, kick, and bite staff. Inpatient MD contacted for IM meds. Pt self removed IV at this time.
[2025-04-10] MEDS: OLANZapine 10 MG VIAL IM (20:38)
--- NOTE | 2025-04-10 20:45 | PC.NURSE ---
Late entry: Pt continues to be verbally and physically aggressive. Pt successfully kicking and hitting staff. IM Zyprexa with no effect. Soft restraints applied to pt per verbal order from MD for pt and staff safety.
--- NOTE | 2025-04-10 21:00 | PC.NURSE ---
Late entry: Pt continues to be combative in restraints, attempting to pull/bite them off. Pt successfully removed left wrist restraint. At this time it was noted that pt had two skin tears on the left wrist at the site of the self removed restraint. Bandage applied, bleeding controlled. regional sales leader aware.
--- NOTE | 2025-04-10 21:09 | HO.BHRESTREX ---
Behavioral Restraint Exam Behavioral Health Restraint Exam Type of Restraint: Medication and Mechanical Reason for Restraint: Substantial Risk Medical Concerns for Restraint: No medical concerns, pt w/o acute inj / no noted resp/VS abnormalities Behavioral Assessment / Plan: No further behavioral concerns, continue current plan.
--- NOTE | 2025-04-10 21:09 | PM.EVENT ---
Event Note Date of Service: 04/10/25 Event Note: Patient with severe agitation delirium, trying to get out of bed pulling out IV, hitting scratching and biting staff at risk for self-harm and harm to others. Given 10 mg of Zyprexa IM to minimal effect will add additional 5 mg IV Valium and wrist restraints, close monitoring Time Spent With Patient Time: Total time managing care of this patient today ____ minutes.
[2025-04-10] MEDS: diazePAM 10 MG/2 ML CARTRIDGE 5 MG IVPUSH ×2 (21:10→22:17)
--- NOTE | 2025-04-10 21:10 | PC.NURSE ---
Late entry: Inpatient MD at bedside. Pt is continuing to be physically aggressive. Verbal orders received from MD Jarrett at bedside for additional medication.
--- NOTE | 2025-04-10 21:27 | PC.NURSE ---
New IV placed in right forearm, 20 g
--- NOTE | 2025-04-10 21:40 | PC.NURSE ---
Late entry: pt was noted to be hypotensive. MD Jarrett made aware, IV fluid bolus ordered and administered.
--- NOTE | 2025-04-10 22:10 | PC.NURSE ---
Late entry: pt continues to be physically and verbally aggressive. Attempting to cause physical harm to staff.
--- NOTE | 2025-04-10 22:50 | PC.NURSE ---
Late entry: Pt continues to be verbally and physically aggressive. Pt is breaking out of restraints and attempting to hit and kick staff. MD Jarrett made aware, orders placed for soft restraints to bilateral ankles for staff and patient safety.
--- NOTE | 2025-04-10 23:10 | PC.NURSE ---
Late entry: pt continues to be physically and verbally aggressive. Pt is calling staff degrading things and telling me to fuck off and . Pt still attempting to hit, bite, and kick with restraints on. MD Jarrett aware.
[2025-04-10] MEDS: OLANZapine 10 MG VIAL 5 MG IM (23:40)
--- NOTE | 2025-04-10 23:40 | PC.NURSE ---
Late entry: pt continues to pull at IV and other lines/devices. Not verbally redirectable. When staff intervenes, pt attempts to bite, kick, and hit. Attempting to spit at staff. MD Jarrett aware, IM Zyprexa ordered and administered.
[2025-04-11] VITALS (27 sets, daily range): BP systolic 117–203; BP diastolic 61–96; PULSE 88–126; RESP 14–26; TEMP 36.1–36.8; O2SAT 92–100; BMI 31.4
--- NOTE | 2025-04-11 | ECG_ITS ---
Test Reason : CHECK QT Blood Pressure : */* mmHG Vent. Rate : 89 BPM Atrial Rate : 89 BPM P-R Int : 166 ms QRS Dur : 76 ms QT Int : 366 ms P-R-T Axes : 29 1 11 degrees QTcB Int : 445 ms Normal sinus rhythm Normal ECG When compared with ECG of 08-Apr-2025 10:04, No significant change was found Referred By: Dee Dee Weller Electronically Signed By: AZAEL ALMAGUER MD
--- NOTE | 2025-04-11 00:27 | HO.NURTONUR ---
Pt is an 89 y.o. female coming in from a facility with severe agitation. Pt was biting other pts and threw a walker at staff. Pt was given 3 mg IM Versed with EMS. PMH Dementia with agitation Aggressive behavior Hiatal hernia History of DVT (deep vein thrombosis) HTN (hypertension) Hypothyroid Recurrent UTI HLD (hyperlipidemia) Dementia. Labs remarkable for BUN/creatinine 33/1.90. UA positive for UTI. Pt has been extremely verbally and physically aggressive. She is in soft restraints on BLE and BUE. She is still attempting to bite, kick, and hit staff. She has received multiple IM and IV medications. Oriented to self only. 20 g right forearm. NS running at 75 mL/hr.
--- NOTE | 2025-04-11 01:51 | PC.NURSE ---
On admission patient admitted to floor in soft restraints from the ED. Patient combative on arrival, attempting to bite, grab, and kick staff when transferring her to bed and getting her cleaned up. Non behavioral restraint form received, 1:1 sitter in room with patient. Soft restraints removed from patient at 0150. Patient following commands and has calm affect, allowed us to get her cleaned up. 1:1 sitter remains at bedside.
--- NOTE | 2025-04-11 09:20 | PC.NURSE ---
Went into patient's room to attempt to medicate patient, unproved patient stated you fucking pig, I hate you and her , you may as well get out of here, I fucking hate you . patient removed all her clothes curtains remain close with 1:1 sitter to preserve dignity and keep patient safe.
[2025-04-11] MEDS: OLANZapine 10 MG VIAL 5 MG IM ×2 (10:40→17:35)
--- NOTE | 2025-04-11 10:46 | PC.NURSE ---
Patient aggressive, agitated, spitting, swearing at staff. Even when on provoked or staff just entering room. 1:1 remains at bedside and patient continues to swear at sitter, even when unprovoked. Patient refused medications, attempting to bite at staff and hit staff. Unable to get vital signs due to patient agitation, bitting, spitting, hitting and yelling at staff. Provider Janee aware, provider Janee told to administer IM Zyprexa, security called to bedside to assist in administration due to patient's agitation and risk to staffs' safety. Im Zyprexa administered. Patient still attempting to spit and hit staff. Provider aware of administration. Unable to get vital signs at this time due to agitation, hitting, spitting, movement and noncompliance. 1:1 sister remains at bedside for patient safety.
--- NOTE | 2025-04-11 11:00 | PC.NURSE ---
Attempt at vital signs, patient continues to hit, bit, yelling and spitting at staff. Unable to get full set of vital signs due to patient's agitation.
--- NOTE | 2025-04-11 11:26 | MHC.PM.REST ---
Restraint Documentation Date of Service: 04/11/25 Time of Documentation: 11:26 Current Situation: After assessment of the patient, a review of the pertinent medical record and a discussion with nursing staff, I feel the patient requires a restrain intervention. Reaction To: agitation/physically assaulting staff Medical Condition: dementia with behavioral dementia Behavioral State: currently calm though disoriented Continued Need: ongoing Time Spent With Patient Time: Total time managing care of this patient today ____ minutes.
--- NOTE | 2025-04-11 11:30 | P.PNIM_ITS ---
Subjective Subjective Date of Service: 04/11/25 Interval History: this am agitated, assaulting staff, refusing labs and vitals, trying to pull out IV; has sitter now 5 mg IM Zyprexa and now calm though disoriented overnight was also given 5 + 10 mg IM Zyprexa and 5 + 5 mg IV Valium for similar behavior Review of Systems Review of Systems: Yes Unobtainable due to mental status Physical Exam 2 Vital Signs: Vital Signs: Last Vital Signs Temp 96.9 F 04/11/25 03:04 Pulse 88 04/11/25 03:04 Resp 26 H 04/11/25 11:00 BP 136/96 H 04/11/25 11:00 Pulse Ox 95 04/11/25 03:04 O2 Del Method Room Air 04/11/25 03:04 O2 Flow Rate 2 04/11/25 00:22 BMI result Body Mass Index 31.4 Gen: in no acute distress HEENT: sclera anicteric, moist mucus membranes Neck: supple Lungs: clear to auscultation bilaterally Heart: regular rate and rhythm, no murmurs Abd: soft, non-tender, non-distended Ext: no edema Skin: warm/well-perfused Neuro: alert, disoriented Psych: impaired insight Objective Data Active Medications Acetaminophen (Acetaminophen 325 Mg Tablet) 650 mg PO Q6H PRN PRN Reason: Pain, Mild 1-3,fever,headache Last Admin: 04/11/25 04:20 Dose: 650 mg Documented By: KATH Aspirin (Aspirin Enteric Coated 81 Mg Tablet.) 81 mg PO DAILY [facility] Atorvastatin Calcium (Atorvastatin Calcium 40 Mg Tablet) 40 mg PO BEDTIME [facility] Last Admin: 04/10/25 20:14 Dose: Not Given Documented By: ANGELIA Non-Admin Reason: Patient Refused Calcium Carbonate (Calcium Carbonate 750 Mg Tab.Chew) 750 mg PO Q4H PRN PRN Reason: Heartburn Sodium Chloride (Ns) 1,000 mls @ 75 mls/hr IVCONT .[id number] [facility] Last Admin: 04/11/25 08:07 Dose: 75 mls/hr Documented By: DAKSHA Levothyroxine Sodium (Levothyroxine Sodium 50 Mcg Tablet) 50 mcg PO DAILY@0600 [facility] Last Admin: 04/11/25 06:21 Dose: Not Given Documented By: KATH Non-Admin Reason: Patient Refused Magnesium Hydroxide (Milk Of Magnesia 30 Ml Oral.Susp) 30 ml PO DAILY PRN PRN Reason: Constipation Melatonin (Melatonin 3 Mg Tablet) 6 mg PO BEDTIME PRN PRN Reason: Insomnia Melatonin (Melatonin 3 Mg Tablet) 6 mg PO BEDTIME [facility] Last Admin: 04/10/25 20:14 Dose: Not Given Documented By: ANGELIA Non-Admin Reason: Patient Refused Meropenem (Meropenem 500 Mg Vial) 500 mg IVPUSH Q12H [facility] Last Admin: 04/11/25 04:20 Dose: 500 mg Documented By: KATH Olanzapine (Olanzapine 10 Mg Vial) 5 mg IM Q8H PRN PRN Reason: agitation unresponsive to beha Last Admin: 04/11/25 10:40 Dose: 5 mg Documented By: DAKSHA Omeprazole (Omeprazole 20 Mg Capsule.Dr) 20 mg PO BID@0630,1630 [facility] Last Admin: 04/11/25 06:21 Dose: Not Given Documented By: KATH Non-Admin Reason: Patient Refused Ondansetron HCl (Ondansetron Hcl 4 Mg/2 Ml Vial) 4 mg IVPUSH Q8H PRN PRN Reason: Nausea and Vomiting Quetiapine Fumarate (Quetiapine Fumarate 50 Mg Tablet) 50 mg PO TID@0700,1200,1600 [facility] Last Admin: 04/11/25 06:21 Dose: Not Given Documented By: KATH Non-Admin Reason: Patient Refused Rivaroxaban (Rivaroxaban 10 Mg Tablet) 10 mg PO DAILY [facility] Sertraline HCl (Sertraline Hcl 25 Mg Tablet) 75 mg PO DAILY [facility] Sodium Chloride (0.9 % Sodium Chloride Flush 3 Ml Syringe) 3 ml IVFLUSH QSHIFT [facility] Last Admin: 04/11/25 08:08 Dose: Not Given Documented By: DAKSHA Non-Admin Reason: IV Running Trazodone HCl (Trazodone Hcl 25 Mg Halftab) 12.5 mg PO DAILY@1600 [facility] Vitamin D (Cholecalciferol (Vitamin D3) 25 Mcg Tablet) 50 mcg PO DAILY [facility] Labs 04/10/25 12:36 04/10/25 12:36 Labs: Laboratory Results - last 24 hr 04/10/25 04/10/25 12:36 15:25 MCV 89.9 MCH 28.5 MCHC 31.7 RDW 13.5 Plt Count 168 MPV 11.6 Immature Gran % (Auto) 0.2 Neut % (Auto) 73.5 H Lymph % (Auto) 16.4 L [place] % (Auto) 6.3 Eos % (Auto) 2.4 Baso % (Auto) 1.2 Lymph # (Auto) 0.8 L [place] # (Auto) 0.3 Eos # (Auto) 0.1 Baso # (Auto) 0.1 Abs Immat Gran (auto) 0.01 Absolute Neuts (auto) 3.7 Absolute Nucleated RBC 0.000 Nucleated RBC % (auto) 0.0 Smear Tech's Comments VERIFIED Anion Gap 14 Estim Creat Clear Calc 17.5 Estimated GFR 25 Random Glucose 139 H Calcium 9.5 D TSH 0.25 L Free T4 1.16 Urine Color Yellow Urine Appearance Cloudy Urine pH 7.0 Ur Specific [place] 1.015 Urine Protein Trace Urine Glucose (UA) Negative Urine Ketones Negative Urine Blood Negative Urine Nitrite Positive H Ur Leukocyte Esterase Large (3+) H Urine RBC 0-2 Urine WBC >50 H Ur Squamous Epith Cells 0-2 Urine Bacteria 4+ Hyaline Casts >20 Assessment and Plan (1) GISSELL (acute kidney injury): Status: Acute Plan d2, 89yo F with dementia with behavioral agitation, recurrent UTIs including ESBL Klebsiella pneumoniae, hx DVT on Xarelto now, HTN, and HLD residing at an [facility] with more frequent ER visits for behavioral agitation, confusion, and unwitnessed falls. Found to have GISSELL and UTI. GISSELL, probably prerenal - continue IV NS, recheck BMP pending, hold HCTZ + lisinopril UTI, hx ESBL - follow UCx, 04/10- meropenem dementia with behavioral agitation - continue sertraline + quetiapine + trazodone pending; Psychiatry consult; may benefit from stabilization in geriatric psychiatry unit once medically cleared; prn IM Zyprexa; check EKG for QTc hx DVT: Xarelto HLD: atorvastatin HTN: hold HCTZ + lisinopril hypothyroidism: LT4 VTE ppx: Xarelto dispo: clearly not safe to return to [facility]; family interested in long-term care options eventually; may need geriatric psychiatric stabilization 1st In my clinical judgment, the patient requires continued inpatient hospitalization for the following reasons: behavioral agitation, IV fluids + ABX Total time managing care of this patient today: 40 minutes. Quality Stroke Does the patient have a stroke diagnosis?: No VTE Prior VTE?: No VTE Risk Level:: Medical - moderate - high VTE Device Contraindication: N/A - Device Ordered VTE Drug Contraindication: N/A - Med Ordered
--- NOTE | 2025-04-11 11:37 | P.CNPS_ITS ---
History of Present Illness Date of Service: 04/11/2025 Chief Complaint: AMS, GISSELL, UTI Reason for Consult: combative behaviors. Requesting physician: Dee Dee Weller Discussed with referring provider: Yes Sources of Information: patient interviewed, chart reviewed and crisis/core team assessment reviewed HPI Narrative: Mrs. Turpin is an 89 year-old woman with hx of dementia who was brought to [facility] ED due to increase combative behaviors (throwing walker and budding with people). Pertinent labs completed in the ED include: cbc without leukocytosis/leukopenia, chronic normocytic anemia with stable H&H. CMP without electrolyte abnormalities, BUN 33, Cr 1.90 creatinine clearance 17.5. TSH low on levothyroxine. UA suggestive of UTI (+bacteria, leukocytes, nitrites), culture pending. While in the hospital, pt has required IM medication for agitation and combative behaviors. She received olanzapine 5mg IM/valium IM. Pt seen in her room. She was in bed, she had recently received IM olanzapine due to increase agitation. Pt presented calmer when this bid writer saw her. She believes 3 people were trying to steal from her. She is not able to tell where she is, nor the month nor year. She appears to hear voice as she asked this bid writer in two occasions while we were talking if I had heard that. Her attention was intact- she was able to answer questions and follow a conversation even if information given by the patient was innacurate. This bid writer spoke with pt's HCP- Marco ([phone]) who reports pt has been presenting with increase paranoia for the past 1-2 months. He also reports that patient has had more frequent falls. Pt is at an [facility]. Son confirms orientation only to self has been going on for several months. We discussed change from seroquel to risperidone, which HCP agreed with. Past Psychiatric History: Report no prior psychiatric dx or admission. Denies depression or anxiety. [facility] Medical History Dementia with agitation Aggressive behavior Hiatal hernia History of DVT (deep vein thrombosis) HTN (hypertension) Hypothyroid Recurrent UTI HLD (hyperlipidemia) Dementia Surgical History History of ankle surgery H/O colonoscopy Family History: Patient lives in a [facility] nursing facility with unlocked unit Social History: not discussed Trauma History: Not discussed Diagnostics Vital Signs (24Hr): Vital Signs - 24 hr 04/10/25 11:46 04/10/25 11:57 04/10/25 13:59 Temperature 97.4 F Pulse Rate 87 86 73 Respiratory Rate 20 20 18 Blood Pressure 103/44 L 116/58 L Pulse Oximetry 96 97 Oxygen Delivery Method Room Air Room Air Oxygen Flow Rate 04/10/25 16:39 04/10/25 19:26 04/10/25 21:00 Temperature 97.9 F 98.0 F Pulse Rate 80 82 98 Respiratory Rate 22 H 18 18 Blood Pressure 133/64 141/73 H 94/46 L Pulse Oximetry 98 96 96 Oxygen Delivery Method Room Air Room Air Room Air Oxygen Flow Rate 04/10/25 21:24 04/10/25 21:26 04/10/25 21:33 Temperature Pulse Rate 103 H 92 Respiratory Rate 19 17 Blood Pressure 79/49 L 99/62 84/40 L Pulse Oximetry 97 98 Oxygen Delivery Method Nasal Cannula Nasal Cannula Oxygen Flow Rate 2 2 04/10/25 21:40 04/10/25 21:46 04/10/25 22:04 Temperature Pulse Rate 97 89 84 Respiratory Rate 18 18 16 Blood Pressure 90/46 L 91/48 L 95/49 L Pulse Oximetry 99 100 100 Oxygen Delivery Method Nasal Cannula Nasal Cannula Nasal Cannula Oxygen Flow Rate 2 2 2 04/10/25 22:39 04/10/25 23:01 04/10/25 23:27 Temperature Pulse Rate 96 101 H 104 H Respiratory Rate 17 18 20 Blood Pressure 109/50 L 124/56 L 146/77 H Pulse Oximetry 98 100 100 Oxygen Delivery Method Nasal Cannula Nasal Cannula Nasal Cannula Oxygen Flow Rate 2 2 2 04/11/25 00:22 04/11/25 01:13 04/11/25 03:04 Temperature 96.9 F 96.9 F Pulse Rate 96 126 H 88 Respiratory Rate 20 16 15 Blood Pressure 123/61 117/79 131/63 Pulse Oximetry 100 93 95 Oxygen Delivery Method Nasal Cannula Room Air Room Air Oxygen Flow Rate 2 04/11/25 10:40 04/11/25 11:00 Temperature Pulse Rate Respiratory Rate 26 H 26 H Blood Pressure 136/96 H Pulse Oximetry Oxygen Delivery Method Oxygen Flow Rate BMI result Body Mass Index 31.4 Labs 04/11/25 11:53 04/11/25 11:53 Labs: Laboratory Results - last 48 hr 04/10/25 04/10/25 12:36 15:25 WBC 5.1 RBC 3.97 L Hgb 11.3 L Hct 35.7 L MCV 89.9 MCH 28.5 MCHC 31.7 RDW 13.5 Plt Count 168 MPV 11.6 Immature Gran % (Auto) 0.2 Neut % (Auto) 73.5 H Lymph % (Auto) 16.4 L [place] % (Auto) 6.3 Eos % (Auto) 2.4 Baso % (Auto) 1.2 Lymph # (Auto) 0.8 L [place] # (Auto) 0.3 Eos # (Auto) 0.1 Baso # (Auto) 0.1 Abs Immat Gran (auto) 0.01 Absolute Neuts (auto) 3.7 Absolute Nucleated RBC 0.000 Nucleated RBC % (auto) 0.0 Smear Tech's Comments VERIFIED Sodium 140 Potassium 4.2 Chloride 108 Carbon Dioxide 22 Anion Gap 14 BUN 33 H Creatinine 1.90 H Estim Creat Clear Calc 17.5 Estimated GFR 25 Random Glucose 139 H Calcium 9.5 D TSH 0.25 L Free T4 1.16 Urine Color Yellow Urine Appearance Cloudy Urine pH 7.0 Ur Specific [place] 1.015 Urine Protein Trace Urine Glucose (UA) Negative Urine Ketones Negative Urine Blood Negative Urine Nitrite Positive H Ur Leukocyte Esterase Large (3+) H Urine RBC 0-2 Urine WBC >50 H Ur Squamous Epith Cells 0-2 Urine Bacteria 4+ Hyaline Casts >20 Mental Status Exam Mental Status Exam Narrative: Appearance: wearing depends, no cloths on, allowed this bid writer to cover her with blankets. in NAD Behavior: calmer Psychomotor: no agitation or retardation noted Speech: mostly clear, normal rate/rhythm/volume, spontaneous TP: with some derailment at times, TC: thinking 3 people are stealing from her Mood: tired Affect: congruent SI: none HI: none AH/VH: may be hearing voices as pt asks this bid writer if I heard something related to her thinking people are stealing from her. Delusions: paranoid delusions Insight/judgment: impaired x 2. Memory/cog: alert, oriented to self, not to place, month, nor year nor situation. severe cognitive impairments. Medications Medications Current Medications Acetaminophen (Acetaminophen 325 Mg Tablet) 650 mg PO Q6H PRN PRN Reason: Pain, Mild 1-3,fever,headache Last Admin: 04/11/25 04:20 Dose: 650 mg Aspirin (Aspirin Enteric Coated 81 Mg Tablet.) 81 mg PO DAILY [facility] Atorvastatin Calcium (Atorvastatin Calcium 40 Mg Tablet) 40 mg PO BEDTIME [facility] Last Admin: 04/10/25 20:14 Dose: Not Given Calcium Carbonate (Calcium Carbonate 750 Mg Tab.Chew) 750 mg PO Q4H PRN PRN Reason: Heartburn Sodium Chloride (Ns) 1,000 mls @ 75 mls/hr IVCONT .[id number] [facility] Last Admin: 04/11/25 08:07 Dose: 75 mls/hr Levothyroxine Sodium (Levothyroxine Sodium 50 Mcg Tablet) 50 mcg PO DAILY@0600 [facility] Last Admin: 04/11/25 06:21 Dose: Not Given Magnesium Hydroxide (Milk Of Magnesia 30 Ml Oral.Susp) 30 ml PO DAILY PRN PRN Reason: Constipation Melatonin (Melatonin 3 Mg Tablet) 6 mg PO BEDTIME PRN PRN Reason: Insomnia Melatonin (Melatonin 3 Mg Tablet) 6 mg PO BEDTIME [facility] Last Admin: 04/10/25 20:14 Dose: Not Given Meropenem (Meropenem 500 Mg Vial) 500 mg IVPUSH Q12H [facility] Last Admin: 04/11/25 04:20 Dose: 500 mg Olanzapine (Olanzapine 10 Mg Vial) 5 mg IM Q8H PRN PRN Reason: agitation unresponsive to beha Last Admin: 04/11/25 10:40 Dose: 5 mg Omeprazole (Omeprazole 20 Mg Capsule.) 20 mg PO BID@0630,1630 [facility] Last Admin: 04/11/25 06:21 Dose: Not Given Ondansetron HCl (Ondansetron Hcl 4 Mg/2 Ml Vial) 4 mg IVPUSH Q8H PRN PRN Reason: Nausea and Vomiting Quetiapine Fumarate (Quetiapine Fumarate 50 Mg Tablet) 50 mg PO TID@0700,1200,1600 [facility] Last Admin: 04/11/25 06:21 Dose: Not Given Rivaroxaban (Rivaroxaban 10 Mg Tablet) 10 mg PO DAILY [facility] Sertraline HCl (Sertraline Hcl 25 Mg Tablet) 75 mg PO DAILY [facility] Sodium Chloride (0.9 % Sodium Chloride Flush 3 Ml Syringe) 3 ml IVFLUSH QSHIFT [facility] Last Admin: 04/11/25 08:08 Dose: Not Given Trazodone HCl (Trazodone Hcl 25 Mg Halftab) 12.5 mg PO DAILY@1600 [facility] Vitamin D (Cholecalciferol (Vitamin D3) 25 Mcg Tablet) 50 mcg PO DAILY [facility] Allergies Allergies Allergy/AdvReac Type Severity Reaction Status Date / Time No Known Allergies Allergy Verified 04/10/25 11:56 Assessment & Plan Assessment & Plan (1) Alzheimer's dementia, late onset, with behavioral disturbance: Status: Acute Code(s): G30.1 - Alzheimer's disease with late onset; F02.818 - Dementia in other diseases classified elsewhere, unspecified severity, with other behavioral disturbance Plan Mrs. Turpin is an 89 year-old woman with hx of dementia who was brought to [facility] ED due to increase combative behaviors. She was found to be in GISSELL complicated by UTI. Pt has continued to need IM medication for combative behaviors. Attention appear intact, does not present with s/s of delirium. However, she does present with advanced dementia and at this point orientation is only to self. Per son, pt has been presenting with paranoid for the past 2 months or so. Pt has been on seroquel with limited efficacy. I recommend at this time to switch to risperidone as it is a better antipsychotic when underlying paranoia present in context of dementia. Given how advanced her dementia is, she would not met criteria for geriatric psych admission as at this point she is close to terminal dementia and focus should be more on goals of care. This bid writer spoke with Marco, pt's son and HCP. He agreed with medication changes. Psychiatry will follow patient while on the medical floor. PLAN 1. d/c seroquel 2. start risperidone 0.5mg po TID. continue prn olanzapine for agitation. Monitor EKG, Qtc<500ms, Mg>2, K>4. 3. maintain adequate hydration/nutrition and ambulation to prevent delirium superimposed on dementia. 4. May want to discuss with HCP code- currently listed as full code. Total time managing care of this patient today ____ minutes.
--- NOTE | 2025-04-11 11:42 | PC.NURSE ---
Patient calm, cooperative. Answering questions, alert to person, [place] [facility] [employer] and could not name the year, Patient reoriented, blanket on patient, bed alarm on. 1:[address].
[2025-04-11] MEDS: Rivaroxaban 10 MG TABLET PO (11:51)
[2025-04-11 12:03] LABS: Hematocrit 37.7 % (37.0-47.0); Hemoglobin 11.8 g/dl (12.0-16.0); Mean Corpuscular HGB Conc 31.3 g/dl (31.0-35.0); Mean Corpuscular Hemoglobin 29.1 pg (27.0-33.0); Mean Corpuscular Volume 93.1 fL (80.0-98.0); NRBC Abs Auto 0.000 X10*3/uL (0.0-0.012); NRBC Pct Auto 0.0 /100WBC (0.0-0.2); Platelet Count 199 X10*3/uL (160-400); Red Blood Count 4.05 X10*6/uL (4.20-5.50); White Blood Count 4.9 X10*3/uL (4.8-10.8)
--- NOTE | 2025-04-11 12:15 | PC.NURSE ---
11:30 - patient cooperative, took pills crushed in apple sauce. EKG and labs were able to be performed with nurse at bedside. Patient keeps saying I need to go home to see my mom . Patient reoriented to situation. IV fluids restarted. 1:[address], bed alarm on, call reddy within reach.
[2025-04-11 12:22] LABS: Anion Gap 11 (12-20); Blood Urea Nitrogen 22 mg/dL (9-16); Calcium 9.6 mg/dL (8.4-10.2); Carbon Dioxide 26 mmol/L (22-29); Chloride 115 mmol/L (96-108); Creatinine Clr Calc Pharmacy 26.0; Estimated Glomerular Filt Rate 38; Potassium 4.0 mmol/L (3.3-5.1); Sodium 148 mmol/L (135-145)
--- NOTE | 2025-04-11 14:07 | MHC.CM.PN ---
son ela is concerned re pts dc explined that md is plaining a psych eval pty is from an assited living dc plan tbd
--- NOTE | 2025-04-11 17:45 | PC.NURSE ---
Entered room to attempt to administer scheduled medications and before this nurse said anything to the patient, patient said not this fucking bitch again, I hate you . Crushed PO pills and mixed in pudding, attempted to administer medications and patient tried to hit nurse and tossed spoon out of hand. Patient continued to swear at staff. Attempted to administer IV antibiotic, patient then attempted to hit nurse, spitting at nurse then grabbed IV tubing and yanked on IV pull. Only half IV antibiotic was able to be administered due to patient's combativeness. IV infusion disconnecting from patient's IV. IV pump broken and unable to open after patient was pulling at line. Provider Janee notified via [employer] and told RN to administer IM Zyprexa. Security called to bedside to assist with administering medication, IM Zyprexa administered. 1:[address], bed alarm on. Medical equipment moved out of patient's reach for patient's safety.
--- NOTE | 2025-04-11 19:12 | PC.NURSE ---
Patient continues to yell and swear at staff, patient called this nurse a fucking bitch and starting stinking her tongue out at staff in a mocking manor. Patient continues to try to hit, kick, bite and spit at staff when attempting to do vital signs. 1:[address], bed alarm on.
[2025-04-11] MEDS: OLANZapine 10 MG VIAL 2.5 MG IM (20:29)
--- NOTE | 2025-04-11 22:06 | PC.NURSE ---
Attempted to change patient and patient began kicking, biting, and hitting. Multiple people required in order to get patient cleaned up and fresh sheets on the bed. Informed patient about her nighttime medications and attempted to give nighttime medications and was told to drop you bitch . Fluids are currently paused for patient safety as she continues to play with tubing and pull the IV pump. 1:1 sitter in the room for patient safety.
[2025-04-11] MEDS: diazePAM 10 MG/2 ML CARTRIDGE 5 MG IVPUSH (22:49)
[2025-04-12] VITALS (11 sets, daily range): BP systolic 79–194; BP diastolic 41–88; PULSE 92–114; RESP 14–19; TEMP 36.2–37.6; O2SAT 98–100
--- NOTE | 2025-04-12 | ECG_ITS ---
Test Reason : resp arrest Blood Pressure : */* mmHG Vent. Rate : 90 BPM Atrial Rate : 90 BPM P-R Int : 162 ms QRS Dur : 74 ms QT Int : 368 ms P-R-T Axes : 43 3 31 degrees QTcB Int : 450 ms Normal sinus rhythm Normal ECG When compared with ECG of 11-Apr-2025 11:59, No significant change was found Referred By: Eun Okeefe Electronically Signed By: AZAEL ALMAGUER MD
--- NOTE | 2025-04-12 01:22 | PC.NURSE ---
Patient has been refusing all medications and vital signs. Respirations have been counted and are being documented. Pearl Zeng made aware.
--- NOTE | 2025-04-12 01:54 | PM.EVENT ---
Event Note Date of Service: 04/12/25 Event Note: Patient has a multiple episodes of agitation and is currently refusing medications and treatments. Patient does have a 1-1 for observation. Patient initially received Zyprexa 2.5 IM x1 and then later Valium 5 mg IV with good effect. Patient also received Seroquel 25 mg x 1 and since then patient has been calm but otherwise refusing as above medications and treatments. Nursing has been documenting this. Patient does have history of significant Alzheimer's and dementia with behavioral disturbances. Time Spent With Patient Time: Total time managing care of this patient today ____ minutes.
--- NOTE | 2025-04-12 05:41 | PC.NURSE ---
Patient refusing her morning medications discussed what the medications were for and their importance. Patient also refusing lab draw this morning. Pearl Zeng made aware.
[2025-04-12] MEDS: OLANZapine 10 MG VIAL 5 MG IM (09:08)
--- NOTE | 2025-04-12 09:35 | HO.PM.IMPN ---
Subjective Subjective Date of Service: 04/12/25 Interval History: intermittently agitated/threatening to staff, requiring IM Zyprexa for pt safety Review of Systems Review of Systems: Yes Unobtainable due to mental status Physical Exam Vital Signs: Vital Signs: Last Vital Signs Temp 97.1 F 04/12/25 06:58 Pulse 105 H 04/12/25 06:58 Resp 18 04/12/25 06:58 BP 156/78 H 04/12/25 06:58 Pulse Ox 93 04/11/25 15:05 O2 Del Method Room Air 04/11/25 15:05 O2 Flow Rate 2 04/11/25 00:22 BMI result Body Mass Index 31.4 Gen: in no acute distress HEENT: sclera anicteric, moist mucus membranes Neck: supple Lungs: clear to auscultation bilaterally Heart: regular rate and rhythm, no murmurs Abd: soft, non-tender, non-distended Ext: no edema Skin: warm/well-perfused Neuro: alert, disoriented Psych: impaired insight Objective Data Active Medications Acetaminophen (Acetaminophen 325 Mg Tablet) 650 mg PO Q6H PRN PRN Reason: Pain, Mild 1-3,fever,headache Last Admin: 04/11/25 04:20 Dose: 650 mg Documented By: KATH Amlodipine Besylate (Amlodipine Besylate 5 Mg Tablet) 5 mg PO DAILY [facility]; Protocol Last Admin: 04/12/25 09:10 Dose: Not Given Documented By: EDGAR Non-Admin Reason: Patient Refused Aspirin (Aspirin Enteric Coated 81 Mg Tablet.) 81 mg PO DAILY [facility] Last Admin: 04/12/25 09:11 Dose: Not Given Documented By: EDGAR Non-Admin Reason: Patient Refused Atorvastatin Calcium (Atorvastatin Calcium 40 Mg Tablet) 40 mg PO BEDTIME [facility] Last Admin: 04/11/25 23:50 Dose: Not Given Documented By: KATH Non-Admin Reason: Patient Refused Calcium Carbonate (Calcium Carbonate 750 Mg Tab.Chew) 750 mg PO Q4H PRN PRN Reason: Heartburn Sodium Chloride (Ns) 1,000 mls @ 75 mls/hr IVCONT .[id number] [facility] Last Admin: 04/11/25 23:49 Dose: Not Given Documented By: KATH Non-Admin Reason: For pt safety Comments: Patient continues to grab IV lines and pulled the IV pump down earlier in the day. Pearl Zeng made aware and she gave the okay to hold the fluids. Levothyroxine Sodium (Levothyroxine Sodium 50 Mcg Tablet) 50 mcg PO DAILY@0600 [facility] Last Admin: 04/12/25 05:40 Dose: Not Given Documented By: KATH Non-Admin Reason: Patient Refused Magnesium Hydroxide (Milk Of Magnesia 30 Ml Oral.Susp) 30 ml PO DAILY PRN PRN Reason: Constipation Melatonin (Melatonin 3 Mg Tablet) 6 mg PO BEDTIME PRN PRN Reason: Insomnia Melatonin (Melatonin 3 Mg Tablet) 6 mg PO BEDTIME [facility] Last Admin: 04/11/25 23:51 Dose: Not Given Documented By: KATH Non-Admin Reason: Patient Refused Meropenem (Meropenem 1 Gm Vial) 1 gm IVPUSH Q12H [facility] Last Admin: 04/12/25 04:53 Dose: 1 gm Documented By: KATH Olanzapine (Olanzapine 10 Mg Vial) 5 mg IM Q8H PRN PRN Reason: agitation unresponsive to beha Last Admin: 04/12/25 09:08 Dose: 5 mg Documented By: EDGAR Omeprazole (Omeprazole 20 Mg Capsule.) 20 mg PO BID@0630,1630 [facility] Last Admin: 04/12/25 05:40 Dose: Not Given Documented By: KATH Non-Admin Reason: Patient Refused Ondansetron HCl (Ondansetron Hcl 4 Mg/2 Ml Vial) 4 mg IVPUSH Q8H PRN PRN Reason: Nausea and Vomiting Risperidone (Risperidone 0.5 Mg Tablet) 0.5 mg PO TID [facility] Last Admin: 04/12/25 09:11 Dose: Not Given Documented By: EDGAR Non-Admin Reason: Patient Refused Rivaroxaban (Rivaroxaban 10 Mg Tablet) 10 mg PO DAILY [facility] Last Admin: 04/12/25 09:11 Dose: Not Given Documented By: EDGAR Non-Admin Reason: Patient Refused Sertraline HCl (Sertraline Hcl 25 Mg Tablet) 75 mg PO DAILY [facility] Last Admin: 04/12/25 09:12 Dose: Not Given Documented By: EDGAR Non-Admin Reason: Patient Refused Sodium Chloride (0.9 % Sodium Chloride Flush 3 Ml Syringe) 3 ml IVFLUSH QSHIFT [facility] Last Admin: 04/12/25 00:46 Dose: Not Given Documented By: KATH Non-Admin Reason: Previously Administered Trazodone HCl (Trazodone Hcl 25 Mg Halftab) 12.5 mg PO DAILY@1600 [facility] Last Admin: 04/11/25 19:38 Dose: Not Given Documented By: DAKSHA Non-Admin Reason: Patient Refused Vitamin D (Cholecalciferol (Vitamin D3) 25 Mcg Tablet) 50 mcg PO DAILY [facility] Last Admin: 04/12/25 09:11 Dose: Not Given Documented By: EDGAR Non-Admin Reason: Patient Refused Labs 04/11/25 11:53 04/11/25 11:53 Labs: Laboratory Results - last 24 hr 04/11/25 11:53 MCV 93.1 MCH 29.1 MCHC 31.3 RDW 13.3 Plt Count 199 MPV 10.7 Absolute Nucleated RBC 0.000 Nucleated RBC % (auto) 0.0 Anion Gap 11 L Estim Creat Clear Calc 26.0 Estimated GFR 38 Random Glucose 84 Calcium 9.6 Microbiology Microbiology Results: Microbiology 04/10/25 15:25 Urine Culture - Preliminary Urine clean catch Culture too young to evaluate. Assessment and Plan (1) GISSELL (acute kidney injury): Status: Acute Plan d3, 89yo F with dementia with behavioral agitation, recurrent UTIs including ESBL Klebsiella pneumoniae, hx DVT on Xarelto now, HTN, and HLD residing at an [facility] with more frequent ER visits for behavioral agitation, confusion, and unwitnessed falls. Found to have GISSELL and UTI. GISSELL, probably prerenal - SCr improved yesterday, recheck today pending, continue to hold HCTZ + lisinopril UTI, hx ESBL - follow UCx, 04/10- meropenem dementia with behavioral agitation - continue sertraline + trazodone; Psychiatry consulted and quetiapine changed to risperidone; prn IM Zyprexa; check EKG for QTc (445ms on 04/11) hx DVT: Xarelto HLD: atorvastatin HTN: hold HCTZ + lisinopril; start amlodipine hypothyroidism: LT4 VTE ppx: Xarelto dispo: clearly not safe to return to [facility]; family interested in long-term care options In my clinical judgment, the patient requires continued inpatient hospitalization for the following reasons: behavioral agitation, IV fluids + ABX Total time managing care of this patient today: 40 minutes. Quality Stroke Does the patient have a stroke diagnosis?: No VTE Prior VTE?: No VTE Risk Level:: Medical - moderate - high VTE Device Contraindication: N/A - Device Ordered VTE Drug Contraindication: N/A - Med Ordered
[2025-04-12 13:31] LABS: Anion Gap 12 (12-20); Blood Urea Nitrogen 14 mg/dL (9-16); Calcium 10.0 mg/dL (8.4-10.2); Carbon Dioxide 24 mmol/L (22-29); Chloride 110 mmol/L (96-108); Creatinine Clr Calc Pharmacy 34.3; Estimated Glomerular Filt Rate 52; Potassium 4.4 mmol/L (3.3-5.1); Sodium 142 mmol/L (135-145)
--- NOTE | 2025-04-12 13:39 | MHC.CM.PN ---
pper rounds no dc at this time psych to eval
[2025-04-12] MEDS: Calcium Chloride 1 GM/10 ML SYRINGE IVPUSH (20:31)
[2025-04-12 20:32] LABS: Glucose, Whole Blood 71 mg/dL (60-115)
[2025-04-12] MEDS: Etomidate 20 MG/10 ML VIAL IVPUSH ×2 (20:35→20:43)
--- NOTE | 2025-04-12 20:37 | PM.EVENT ---
Event Note Date of Service: 04/13/25 Event Note: Code Blue called, pt witnessed holding hands together tightly and pt started shaking profusely. Aide contacted nursing and assessment identified that pt was in cardiac arrest. Pt resuscitated and then intubated by ICU provider. Stat labs ordered with VBG. Pt will transfer to ICU. Dr. Fernandez at bedside running code. This entry writer did update Huber regarding pt's condition and current events and plan of care. Pt's HCP that is currently invoked. Huber will notify rest of the family. Pt has been refusing most aspects of care to include vitals, medications and labs and HCP is asking how can this change. Will refer this to CM/SW for further evaluation. Time Spent With Patient Time: Total time managing care of this patient today ____ minutes.
[2025-04-12 20:50] LABS: MANUAL DIFF FLAG NO
[2025-04-12 20:54] LABS: Hematocrit 38.1 % (37.0-47.0); Hemoglobin 11.5 g/dl (12.0-16.0); Imm Gran Abs Auto 0.20 X10*3/uL (0.00-0.03); Imm Gran Pct Auto 1.8 % (0.0-0.4); Lymphocytes Absolute Auto 3.6 X10*3/uL (1.2-4.9); Mean Corpuscular HGB Conc 30.2 g/dl (31.0-35.0); Mean Corpuscular Hemoglobin 28.8 pg (27.0-33.0); Mean Corpuscular Volume 95.3 fL (80.0-98.0); NRBC Abs Auto 0.000 X10*3/uL (0.0-0.012); NRBC Pct Auto 0.0 /100WBC (0.0-0.2); Platelet Count 205 X10*3/uL (160-400); Red Blood Count 4.00 X10*6/uL (4.20-5.50); White Blood Count 11.4 X10*3/uL (4.8-10.8)
[2025-04-12 21:08] LABS: Venous Blood Gas Refer to POC result
[2025-04-12 21:08] LABS: VBG HCO3 16 mmol/L (22-26); VBG O2 % Saturation 88.0 %
--- NOTE | 2025-04-12 21:16 | PC.NURSE ---
2020 sitter called aid into the room because pt was having a seizure and a rapid response was call.when I got to the room pt stopped breathing.rex blue was called overhead.CPR started, blood sugar checked it was 71.pt was give 1 amp IV dextrose.pt was intubated,CXR was done ,labs drawn.pt was transfered to ICU.
[2025-04-12 21:25] LABS: Alanine Aminotransferase 22 U/L (0-31); Albumin Level 3.4 g/dL (3.5-5.0); Alkaline Phosphatase 80 U/L (39-117); Anion Gap 26 (12-20); Aspartate Amino Transferase 49 U/L (5-31); Blood Urea Nitrogen 15 mg/dL (9-16); Calcium 11.5 mg/dL (8.4-10.2); Carbon Dioxide 17 mmol/L (22-29); Chloride 105 mmol/L (96-108); Creatinine Clr Calc Pharmacy 29.6; Estimated Glomerular Filt Rate 44; Magnesium 1.6 mg/dL (1.6-2.6); Potassium 3.9 mmol/L (3.3-5.1); Sodium 144 mmol/L (135-145); Total Protein 6.1 g/dL (6.5-8.0)
--- NOTE | 2025-04-12 21:28 | PM.CCN ---
Critical Care Event Note Summary Date of Service: 04/12/25 Code activated: Yes Narrative: This case had a high probability of a clinically significant, sudden, or life threatening deterioration of this patient's condition which required my full and direct attention, intervention and personal management. Critical Care Time (minutes): 90 Comment: Ms Turpin is a 89yo F with significant Alzheimer's and dementia with behavioral disturbances, recurrent UTIs including ESBL Klebsiella pneumoniae, hx DVT on Xarelto now, HTN, and HLD residing at an assisted living facility who has had multiple visits to the emergency room over the last 6 months for multiple falls and agitation (5 visits within the last 10 days). The pt was admitted 04/10/2025 for GISSELL, UTI. During this time, she has had several episodes of agitation requiring zyprexa, valium and seroquel. She had been refusing medications and treatments and had a 1-1 pt observer at bedside.? This evening, a [employer] and then a Code Blue was called after the pt was noted to have a seizure and breathing became agonal. CPR was started, she was given one dose epinephrine and ROSC was noted after 2 minutes. On my arrival, the pt was unresponsive with spontaneous respirations, tachycardia to 130?s and Systolic BP 200. She was intubated at the bedside (see separate note). She was given 1 g Calcium Chloride, 1 amp Sodium Bicarbonate and was transferred to ICU for further management. Pt likely experienced respiratory arrest d/t hypoxia. CT scan of Head/Neck, Chest, Abd/Pelvis ordered. Pt?s son Jaime was notified of the preceding events. Pt?s grandson and granddaughter were updated at the bedside in the ICU.? Of note, the pt did have a head CT on 04/04, 04/07, 04/08 after falls at her residence. All scans showed no acute intracranial findings. ? Case was discussed in detail with Dr. Cano over the phone.
[2025-04-12 21:29] LABS: NT Pro B Type Natriuretic Pept 2354.5 pg/mL (<300); Troponin-I High Sensitivity 20.0 ng/L (<3.5-17.0)
--- NOTE | 2025-04-12 22:08 | W.PM.CCHP ---
Procedures Date of Service Date of Service: 04/12/25 Intubation Intubation Comments: The pt was emergently intubated after respiratory arrest. She was ?preoxygenated with Ambu-bag 100%. RSI was carried out with the meds below. A moderate amount light brown sputum was suctioned from the oropharynx. The glottis was then visualized with 3 GlideScope with difficulty d/t body habitus and secretions and the trachea was intubated with a 7.5 ETT via indirect video visualization, atraumatic.+CO2, SpO2 maintained.? The tube was secured at 21 cm at the upper lip. Chest x-ray revealed the endotracheal tube was roughly 8 cm above the juan; respiratory therapy advanced the tube. Consent for Procedure: Emergent-no informed consent obtained Time out performed: Yes Sedative: etomidate Mg given: 40 Laryngoscope: fiber optic video scope ET tube size: 7.5 ET tube uncuffed: Yes Tube secured depth (cm): 21 Tube secured location: lips Tube placement confirmation: visualized tube passing through cords, no breath sounds over epigastrium and confirmation by capnometry Patient tolerated procedure: well and no complications Intubation complications: difficult intubation
[2025-04-12 22:16] LABS: Venous Blood Gas Refer to POC result
[2025-04-12 22:18] LABS: VBG HCO3 18 mmol/L (22-26); VBG O2 % Saturation 91.0 %
[2025-04-12 22:50] LABS: Reflex Lactate? Lactic Acid Added
[2025-04-12] MEDS: levETIRAcetam in NaCl (iso-os) 1,500 MG/100 ML PIGGYBACK 400 MG IV (22:53)
[2025-04-12] MEDS: Furosemide 20 MG/2 ML VIAL IVPUSH (22:53)
[2025-04-12] MEDS: Chlorhexidine Gluc Oral Rinse 15 ML MOUTHWASH BUCCAL (22:55)
[2025-04-12] MEDS: Albumin Human 25 % 100 ML 133.33 ML IV (23:13)
[2025-04-12 23:25] LABS: ~Lactic Acid-LAB USE ONLY 3.3 mmol/L (0.5-2.0)
[2025-04-13] VITALS (74 sets, daily range): BP systolic 62–176; BP diastolic 30–88; PULSE 72–107; RESP 12–25; TEMP 37.2–38.4; O2SAT 90–100; BMI 29.3
--- NOTE | 2025-04-13 | EEG_ITS ---
History: Patient is a 89 Y F w/ hypertension, hyperlipidemia, prior DVT on rivaroxaban, advanced dementia c/b agitation, recurrent UTIs d/t ESBL, presenting to ED on 04/10 w/ encephalopathy, found to have UTI, admitted medicine; hospital course c/b persistent agitation; on 12 PM, patient reportedly developed tonic-clonic movements and agonal breathing, CPR performed w/ reported ROSC within 2 minutes Medication: ascorbic acid, aspirin, atorvastatin, cephalexin, Vit D3, ferrous gluconate, lactobacillus acidophilus, levothyroxine, lisinopril, loperamide, milk of magnesia, melatonin, omeprazole, quetiapine, xarelto, senna, setraline, trazodone Technical Description Photic Stimulation: completed Hyperventilation: omitted Behavioral State: Patient responded to physical stimuli, Patient did not follow commands, Patient intubated State of Consciousness: awake Skull Defect: none Sedation: propofol turned off 1 hour prior Handedness: unknown Duration: 24 min 53 sec Description: This is a 16 channel portable EEG performed in ICU. Patient is reported awake during the tracing. Background EEG rhythm is theta to delta range with frequent electrical, muscle, and lead artifacts. No definite sharp waves or spikes were noted. No obvious asymmetry was noted. Photic stimulation did not produce any significant driving. Hyperventilation was not performed. Cardiac lead did not reveal any significant arrhythmia. Impression: Moderate generalized slowing with no epileptic discharges. MTDD
[2025-04-13] MEDS: Albumin Human 25 % 100 ML 133.33 ML IV (00:01)
[2025-04-13] MEDS: 0.9 % Sodium Chloride Flush 3 ML SYRINGE IVFLUSH ×4 (00:27→23:28)
[2025-04-13 01:07] LABS: Reflex Lactate? 2 Y
[2025-04-13 01:46] LABS: ~Lactic Acid-LAB USE ONLY 1.4 mmol/L (0.5-2.0)
[2025-04-13 05:26] LABS: VBG HCO3 22 mmol/L (22-26); VBG O2 % Saturation 77.0 %
[2025-04-13 05:28] LABS: Venous Blood Gas Refer to POC result
[2025-04-13 05:32] LABS: Hematocrit 33.7 % (37.0-47.0); Hemoglobin 10.7 g/dl (12.0-16.0); Imm Gran Abs Auto 0.05 X10*3/uL (0.00-0.03); Imm Gran Pct Auto 0.5 % (0.0-0.4); Lymphocytes Absolute Auto 0.8 X10*3/uL (1.2-4.9); MANUAL DIFF FLAG NO; Mean Corpuscular HGB Conc 31.8 g/dl (31.0-35.0); Mean Corpuscular Hemoglobin 28.8 pg (27.0-33.0); Mean Corpuscular Volume 90.6 fL (80.0-98.0); NRBC Abs Auto 0.000 X10*3/uL (0.0-0.012); NRBC Pct Auto 0.0 /100WBC (0.0-0.2); Platelet Count 176 X10*3/uL (160-400); Red Blood Count 3.72 X10*6/uL (4.20-5.50); White Blood Count 10.9 X10*3/uL (4.8-10.8)
--- NOTE | 2025-04-13 05:48 | PC.NURSE ---
Arrived to unit aprox?2129, post code?- see code sheet. Intubated on Med Surg. Ediomidate, Fentanyl, and Versed given for RSI? - see JUL. Propofol started for sedation - see JUL for titrations. ETT #7.5, 25 cm?@ lip, advanced by RT per CXR. On ACVC settings - see vent assessment. SR/ST on tele, HR 80-100s. MAP < 65, Levophed titrated per JUL. OGT placed, 65 cm?@ lip. Lezama placed per REBECCA Okeefe, draining clear yellow urine. Lasix administered per JUL.? Blanchable redness noted to bilateral heels, heel boots applied. Protective foam placed to coccyx. Hygiene provided, repositioned?Q2H. Family updated by REBECCA Okeefe at bedside.?
[2025-04-13 05:51] LABS: Albumin Level 4.3 g/dL (3.5-5.0); Anion Gap 20 (12-20); Blood Urea Nitrogen 14 mg/dL (9-16); Calcium 10.6 mg/dL (8.4-10.2); Carbon Dioxide 21 mmol/L (22-29); Chloride 105 mmol/L (96-108); Creatinine Clr Calc Pharmacy 29.1; Estimated Glomerular Filt Rate 45; Magnesium 1.5 mg/dL (1.6-2.6); Potassium 3.9 mmol/L (3.3-5.1); Sodium 142 mmol/L (135-145)
[2025-04-13] MEDS: Furosemide 20 MG/2 ML VIAL IVPUSH (06:12)
[2025-04-13] MEDS: levETIRAcetam in NaCl (iso-os) 1,000 MG/100 ML PIGGYBACK 400 MG IV (06:52)
[2025-04-13 07:36] LABS: Troponin-I High Sensitivity 40.7 ng/L (<3.5-17.0)
[2025-04-13] MEDS: Potassium Phosphate/NS 15 MMOL/250 ML PLAST..BAG 62.5 MMOL IV (07:40)
[2025-04-13] MEDS: Chlorhexidine Gluc Oral Rinse 15 ML MOUTHWASH BUCCAL ×3 (08:01→20:50)
--- NOTE | 2025-04-13 08:16 | P.PNCC_ITS ---
Subjective Subjective Date of Service: 04/13/25 Interval History: cardiac arrest 04/12 PM, likely d/t hypoxia, though unclear etiology; laboratories and imaging grossly unremarkable; remains intubated, on low-dose vasopressors Critical Care Time (minutes): 60 Physical Exam 2 Vital Signs: Vital Signs: Last Vital Signs Temp 99.9 F 04/13/25 08:00 Pulse 96 04/13/25 08:09 Resp 25 H 04/13/25 08:00 BP 134/62 04/13/25 08:09 Pulse Ox 90 L 04/13/25 08:00 O2 Del Method Mechanical Ventil ation 04/13/25 08:00 O2 Flow Rate 100 04/12/25 23:00 FiO2 21 04/13/25 08:00 BMI result Body Mass Index 29.3 Const: Other: intubated, sedated; no appreciable spontaneous movements General: comfortable and no acute distress HEENT: Head: Yes normal to inspection, Yes normocephalic and Yes atraumatic Eyes: General: appearance normal, both eyes and all related structures Neck: Neck: Yes normal visual inspection, Yes full ROM, Yes no meningeal signs, Yes trachea midline and Yes supple Chest: Chest palpation & inspection: normal inspection of the chest Resp: Other: no appreciable overt rales, rhonchi, wheezing Effort & Inspection: normal respiratory effort Cardio: Rate: regular rate Rhythm: regular rhythm GI: Inspection: Yes normal to inspection, No Abdominal wall edema and No distended Palpation (GI): Soft to palpation, not firm, nontender, no guarding and not rigid Skin: Other: appreciable scattered ecchymoses forearms Neuro: General: tone normal and no meningeal signs Extrem: Other: appreciable trace pitting edema to bilateral shins General: Yes normal to inspection, Yes full ROM and Yes capillary refill normal Psych: Other: unable to assess Objective Data Labs 04/13/25 05:21 04/13/25 05:21 Labs: Laboratory Results - last 24 hr 04/12/25 04/12/25 04/12/25 12:55 20:26 20:40 WBC 11.4 H RBC 4.00 L Hgb 11.5 L Hct 38.1 MCV 95.3 MCH 28.8 MCHC 30.2 L RDW 13.3 Plt Count 205 MPV 11.2 Immature Gran % (Auto) 1.8 H Neut % (Auto) 58.7 Lymph % (Auto) 31.8 [place] % (Auto) 5.7 Eos % (Auto) 1.0 Baso % (Auto) 1.0 Lymph # (Auto) 3.6 [place] # (Auto) 0.7 Eos # (Auto) 0.1 Baso # (Auto) 0.1 Abs Immat Gran (auto) 0.20 H Absolute Neuts (auto) 6.7 Absolute Nucleated RBC 0.000 Nucleated RBC % (auto) 0.0 Hold Purple Top SEE NOTE VBG pH VBG pCO2 VBG pO2 VBG HCO3 VBG O2 Saturation VBG Base Excess Sodium 142 144 Potassium 4.4 3.9 Chloride 110 H 105 Carbon Dioxide 24 17 L Anion Gap 12 26 H BUN 14 15 Creatinine 1.01 1.17 Estim Creat Clear Calc 34.3 29.6 Estimated GFR 52 44 POC Glucose 71 Random Glucose 67 253 H Lactic Acid 10.0 H* Lactic Acid F/U @ 2Hr Lactic Acid F/U @ 4Hr Calcium 10.0 11.5 H D Phosphorus Magnesium 1.6 Total Bilirubin 0.5 AST 49 H ALT 22 Alkaline Phosphatase 80 Troponin I High Sens NT-Pro-B Natriuret Pep Total Protein 6.1 L Albumin 3.4 L 04/12/25 04/12/25 04/12/25 20:52 20:58 22:12 WBC RBC Hgb Hct MCV MCH MCHC RDW Plt Count MPV Immature Gran % (Auto) Neut % (Auto) Lymph % (Auto) [place] % (Auto) Eos % (Auto) Baso % (Auto) Lymph # (Auto) [place] # (Auto) Eos # (Auto) Baso # (Auto) Abs Immat Gran (auto) Absolute Neuts (auto) Absolute Nucleated RBC Nucleated RBC % (auto) Hold Purple Top VBG pH 7.10 L* 7.34 VBG pCO2 51 33 VBG pO2 81 69 VBG HCO3 16 L 18 L VBG O2 Saturation 88.0 91.0 VBG Base Excess -12.9 -6.1 Sodium Potassium Chloride Carbon Dioxide Anion Gap BUN Creatinine Estim Creat Clear Calc Estimated GFR POC Glucose Random Glucose Lactic Acid Lactic Acid F/U @ 2Hr Lactic Acid F/U @ 4Hr Calcium Phosphorus Magnesium Total Bilirubin AST ALT Alkaline Phosphatase Troponin I High Sens 20.0 H D NT-Pro-B Natriuret Pep 2354.5 H Total Protein Albumin 04/12/25 04/13/25 04/13/25 23:04 01:24 05:21 WBC 10.9 H RBC 3.72 L Hgb 10.7 L Hct 33.7 L MCV 90.6 MCH 28.8 MCHC 31.8 RDW 13.4 Plt Count 176 MPV 11.3 Immature Gran % (Auto) 0.5 H Neut % (Auto) 84.4 H Lymph % (Auto) 7.5 L [place] % (Auto) 6.3 Eos % (Auto) 0.9 Baso % (Auto) 0.4 Lymph # (Auto) 0.8 L [place] # (Auto) 0.7 Eos # (Auto) 0.1 Baso # (Auto) 0.0 Abs Immat Gran (auto) 0.05 H Absolute Neuts (auto) 9.2 H Absolute Nucleated RBC 0.000 Nucleated RBC % (auto) 0.0 Hold Purple Top VBG pH VBG pCO2 VBG pO2 VBG HCO3 VBG O2 Saturation VBG Base Excess Sodium 142 Potassium 3.9 Chloride 105 Carbon Dioxide 21 L Anion Gap 20 BUN 14 Creatinine 1.15 Estim Creat Clear Calc 29.1 Estimated GFR 45 POC Glucose Random Glucose 107 Lactic Acid Lactic Acid F/U @ 2Hr 3.3 H* Lactic Acid F/U @ 4Hr 1.4 Calcium 10.6 H D Phosphorus 2.6 L Magnesium 1.5 L Total Bilirubin AST ALT Alkaline Phosphatase Troponin I High Sens NT-Pro-B Natriuret Pep Total Protein Albumin 4.3 04/13/25 04/13/25 05:22 06:55 WBC RBC Hgb Hct MCV MCH MCHC RDW Plt Count MPV Immature Gran % (Auto) Neut % (Auto) Lymph % (Auto) [place] % (Auto) Eos % (Auto) Baso % (Auto) Lymph # (Auto) [place] # (Auto) Eos # (Auto) Baso # (Auto) Abs Immat Gran (auto) Absolute Neuts (auto) Absolute Nucleated RBC Nucleated RBC % (auto) Hold Purple Top VBG pH 7.52 H VBG pCO2 27 VBG pO2 48 VBG HCO3 22 VBG O2 Saturation 77.0 VBG Base Excess 0.5 Sodium Potassium Chloride Carbon Dioxide Anion Gap BUN Creatinine Estim Creat Clear Calc Estimated GFR POC Glucose Random Glucose Lactic Acid Lactic Acid F/U @ 2Hr Lactic Acid F/U @ 4Hr Calcium Phosphorus Magnesium Total Bilirubin AST ALT Alkaline Phosphatase Troponin I High Sens 40.7 H D NT-Pro-B Natriuret Pep Total Protein Albumin Microbiology Microbiology Results: Microbiology 04/10/25 15:25 Urine clean catch Urine Culture - Preliminary Gram negative deyvi Progress Note: A&P Assessment and plan (1) Cardiac arrest: Status: Acute (2) UTI (urinary tract infection): Status: Acute Plan Patient is a 89 Y F w/ hypertension, hyperlipidemia, prior DVT on rivaroxaban, advanced dementia c/b agitation, recurrent UTIs d/t ESBL, presenting to ED on 04/10 w/ encephalopathy, found to have UTI, admitted medicine; hospital course c/b persistent agitation; on 04/12 PM, patient reportedly developed tonic-clonic movements and agonal breathing, CPR performed w/ reported ROSC within 2 minutes N: question seizure, empiric levetiracetam, to follow-up EEG; intubated, sedated w/ propofol gtt, wean as tolerated CV: hypotension, likely multi-factorial, vasodilatory s/p cardiac arrest, sedation, norepinephrine gtt, wean as tolerated R: likely respiratory arrest, unclear etiology, intubated, wean as tolerated GI: no acute issues; NPO : no acute issues, to closely monitor renal indices/electrolytes H: prior DVT home apixaban ID: UTI d/t ESBL on meropenem; empiric vanc initiated s/p cardiac arrest, to follow-up BCx 04/13 E: no acute issues; to monitor hypo-/hyper-glycemia P: advanced dementia c/b agitation S: daily updates given to family Quality Stroke Does the patient have a stroke diagnosis?: No VTE Prior VTE?: No VTE Risk Level:: Medical - moderate - high VTE Device Contraindication: N/A - Device Ordered VTE Drug Contraindication: N/A - Med Ordered
--- NOTE | 2025-04-13 10:43 | MHC.CLN ---
PT IS INTUBATED AND SEDATED CURRENTLY NPO IF TF NEEDED; RECOMMEND VITAL AF 1.2 AT MAX GOAL RATE 45ML/HR WITH 240ML FREE WATER Q 8 HRS TO PROVIDE 1296KCALS, 81G PROTEIN (1.5G/KG), 1596ML TOTAL FREE WATER FROM FORMULA AND FLUSHES (30ML/KG) MONITOR TOLERANCE AND LYTES SEE FULL ASSESSMENT FOLLOWING FOR DIET ADVANCEMENT
[2025-04-13] MEDS: Hydrocortisone Sod Succ/PF 100 MG VIAL IVPUSH (11:00)
[2025-04-13] MEDS: Vasopressin 20 UNIT/100 ML INFUS..BTL 9 UNIT IVCONT (12:20)
--- NOTE | 2025-04-13 13:53 | MHC.CM.PN ---
Pt transferred to ICU following arrest: intubated/sedated: Pt from [facility]: unknown if she will be able to return - to follow for finalization of d/c planning needs.
[2025-04-13] MEDS: Hydrocortisone Sod Succ/PF 100 MG VIAL 50 MG IVPUSH ×2 (16:09→22:30)
--- NOTE | 2025-04-13 19:02 | PC.NURSE ---
Off sedation since the am per JUL. Does not follow commands. Continues intubated, PSV trial for approx. 7 hours, now on resting settings. SR-ST on tele on levoped per JUL. OG clamp, Lezama patent and draining. Scatter bruising. Peripheral IVs.
[2025-04-14] VITALS (47 sets, daily range): BP systolic 72–186; BP diastolic 37–99; PULSE 15–91; RESP 12–25; TEMP 35.4–37.8; O2SAT 91–100; BMI 30.7
[2025-04-14] MEDS: Furosemide 20 MG/2 ML VIAL IVPUSH (00:54)
[2025-04-14] MEDS: Hydrocortisone Sod Succ/PF 100 MG VIAL 50 MG IVPUSH ×3 (03:58→16:01)
[2025-04-14 05:14] LABS: VBG HCO3 25 mmol/L (22-26); VBG O2 % Saturation 96.0 %
[2025-04-14 05:26] LABS: Hematocrit 33.1 % (37.0-47.0); Hemoglobin 10.6 g/dl (12.0-16.0); Imm Gran Abs Auto 0.07 X10*3/uL (0.00-0.03); Imm Gran Pct Auto 0.6 % (0.0-0.4); Lymphocytes Absolute Auto 0.7 X10*3/uL (1.2-4.9); MANUAL DIFF FLAG SCAN; Mean Corpuscular HGB Conc 32.0 g/dl (31.0-35.0); Mean Corpuscular Hemoglobin 28.9 pg (27.0-33.0); Mean Corpuscular Volume 90.2 fL (80.0-98.0); NRBC Abs Auto 0.000 X10*3/uL (0.0-0.012); NRBC Pct Auto 0.0 /100WBC (0.0-0.2); Platelet Count 202 X10*3/uL (160-400); Red Blood Count 3.67 X10*6/uL (4.20-5.50); SCAN SMEAR FLAG 1; White Blood Count 12.1 X10*3/uL (4.8-10.8)
[2025-04-14 05:35] LABS: Venous Blood Gas Refer to POC result
[2025-04-14 05:38] LABS: Albumin Level 4.0 g/dL (3.5-5.0)
[2025-04-14 05:43] LABS: Anion Gap 19 (12-20); Blood Urea Nitrogen 26 mg/dL (9-16); Calcium 9.6 mg/dL (8.4-10.2); Carbon Dioxide 23 mmol/L (22-29); Chloride 103 mmol/L (96-108); Creatinine Clr Calc Pharmacy 21.8; Estimated Glomerular Filt Rate 32; Magnesium 1.8 mg/dL (1.6-2.6); Potassium 3.8 mmol/L (3.3-5.1); Sodium 141 mmol/L (135-145)
[2025-04-14] MEDS: levETIRAcetam in NaCl (iso-os) 1,000 MG/100 ML PIGGYBACK 400 MG IV (05:50)
--- NOTE | 2025-04-14 06:33 | PC.NURSE ---
CARE ASSUMED 7PM..REMAINS INTUBATED/VCV VENT SUPPORT....OFF PROPOFOL AT SHIFT CHANGE...PATIENT AGITATED AND RESTLESS...DOESNOT OPEN EYES...BACK AND ATTEMPTING TO GRAB AT LINES..DOES NOT FOLLOW COMMANDS..FORCEFUL GAG/COUGH REFLEXES..RECURRANT VENT DYSYNCHRONY...PROPOFOL DRIP RESUMED 20 MCG/KG/MIN PER ICU ELECTRIC METER READER ANTONIA GRANADOS...PROPOFOL TITRATED PER MAR TO 50 MCG/KG/MIN WITH GRADUAL IMPROVED VENT SYNCHRONY...CUETO WITH DECREASED OUTPUT OVERNIGHT..LASIX 20MG IV X1 GIVEN WITH MARGINAL EFFECT..PROVIDER AWARE...PASSED LARGE LOOSE BROWN STOOL X1 OVERNIGHT....SON EDOUARD (HCP) ARRIVED FROM [place] AND AT BEDSIDE..
--- NOTE | 2025-04-14 08:10 | P.PNCC_ITS ---
Subjective Subjective Date of Service: 04/14/25 Interval History: no significant overnight events; SAT/SBT 04/13 w/ intermittent apnea, did not open eyes, no appreciable purposeful movements Critical Care Time (minutes): 60 Physical Exam 2 Vital Signs: Vital Signs: Last Vital Signs Temp 97.3 F 04/14/25 07:00 Pulse 62 04/14/25 07:00 Resp 25 H 04/14/25 07:00 BP 126/54 L 04/14/25 07:00 Pulse Ox 94 04/14/25 07:53 O2 Del Method Mechanical Ventil ation 04/14/25 07:00 O2 Flow Rate 100 04/12/25 23:00 FiO2 21 04/14/25 07:53 BMI result Body Mass Index 30.7 Const: Other: intubated, not sedated; some spontaneous movements, though no appreciable purposeful movements General: comfortable and no acute distress HEENT: Head: Yes normal to inspection, Yes normocephalic and Yes atraumatic Eyes: General: appearance normal, both eyes and all related structures Neck: Neck: Yes normal visual inspection, Yes full ROM, Yes no meningeal signs, Yes trachea midline and Yes supple Chest: Chest palpation & inspection: normal inspection of the chest Resp: Other: no appreciable overt rales, rhonchi, wheezing Effort & Inspection: normal respiratory effort Cardio: Rate: regular rate Rhythm: regular rhythm GI: Inspection: Yes normal to inspection, No Abdominal wall edema and No distended Palpation (GI): Soft to palpation, not firm, nontender, no guarding and not rigid Skin: Other: scattered ecchymoses forearms Neuro: General: tone normal, moves all extremities and no meningeal signs Extrem: General: Yes normal to inspection, Yes full ROM, Yes capillary refill normal and Yes no clubbing, cyanosis or edema Psych: Other: unable to assess Objective Data Labs 04/14/25 05:02 04/14/25 05:02 Labs: Laboratory Results - last 24 hr 04/14/25 04/14/25 05:02 05:10 WBC 12.1 H RBC 3.67 L Hgb 10.6 L Hct 33.1 L MCV 90.2 MCH 28.9 MCHC 32.0 RDW 13.3 Plt Count 202 MPV 11.5 Immature Gran % (Auto) 0.6 H Neut % (Auto) 90.1 H Lymph % (Auto) 5.8 L [place] % (Auto) 3.2 Eos % (Auto) 0.1 Baso % (Auto) 0.2 Lymph # (Auto) 0.7 L [place] # (Auto) 0.4 Eos # (Auto) 0.0 Baso # (Auto) 0.0 Abs Immat Gran (auto) 0.07 H Absolute Neuts (auto) 10.9 H Absolute Nucleated RBC 0.000 Nucleated RBC % (auto) 0.0 Smear Tech's Comments VERIFIED VBG pH 7.45 H VBG pCO2 35 VBG pO2 86 VBG HCO3 25 VBG O2 Saturation 96.0 VBG Base Excess 1.5 Sodium 141 Potassium 3.8 Chloride 103 Carbon Dioxide 23 Anion Gap 19 BUN 26 H Creatinine 1.53 H Estim Creat Clear Calc 21.8 Estimated GFR 32 Random Glucose 171 H Calcium 9.6 D Phosphorus 4.5 Magnesium 1.8 Albumin 4.0 Microbiology Microbiology Results: Microbiology 04/12/25 22:06 Blood - Venous Blood Culture - Preliminary No growth after 24 hours. 04/12/25 22:06 Blood - Venous Blood Culture - Preliminary No growth after 24 hours. 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, advanced dementia, recurrent UTIs d/t ESBL, presenting to ED on 04/10 w/ encephalopathy, found to have UTI, admitted medicine; hospital course c/b persistent agitation; on 12 PM, patient reportedly developed tonic-clonic movements and agonal breathing, CPR performed w/ reported ROSC within 2 minutes N: question seizure, empiric levetiracetam, EEG 04/14 not suggestive of seizure activity; intubated, sedated w/ propofol gtt, wean as tolerated CV: hypotension, likely multi-factorial, vasodilatory s/p cardiac arrest, sedation, norepinephrine gtt, wean as tolerated R: likely respiratory arrest, unclear etiology, intubated, wean as tolerated GI: no acute issues; NPO : acute renal insufficiency, to closely monitor renal indices/electrolytes H: prior DVT home apixaban ID: UTI d/t ESBL on meropenem; empiric vanc initiated s/p cardiac arrest, to follow-up BCx 04/13 E: no acute issues; to monitor hypo-/hyper-glycemia P: advanced dementia S: daily updates given to family Quality Stroke Does the patient have a stroke diagnosis?: No VTE Prior VTE?: No VTE Risk Level:: Medical - moderate - high VTE Device Contraindication: N/A - Device Ordered VTE Drug Contraindication: N/A - Med Ordered
[2025-04-14] MEDS: Chlorhexidine Gluc Oral Rinse 15 ML MOUTHWASH BUCCAL ×3 (08:15→21:00)
[2025-04-14] MEDS: 0.9 % Sodium Chloride Flush 3 ML SYRINGE IVFLUSH ×2 (08:15→15:59)
--- NOTE | 2025-04-14 09:25 | MHC.CLN ---
F/U PT REMAINS INTUBATED AND SEDATED DAY 2 NPO DISCUSSED WITH PROVIDER-PLAN FOR FAMILY MEETING TODAY TO DISCUSS GOC IF TF NEEDED; RECOMMEND VITAL AF 1.2 AT MAX GOAL RATE 45ML/HR WITH 240ML FREE WATER Q 8 HRS TO PROVIDE 1296KCALS, 81G PROTEIN (1.5G/KG), 1596ML TOTAL FREE WATER FROM FORMULA AND FLUSHES (30ML/KG) MONITOR TOLERANCE AND LYTES FOLLOWING FOR DIET ADVANCEMENT RD CAN BE REACHED DURING OFF HOURS VIA TIGER CONNECT IF NEEDED
--- NOTE | 2025-04-14 10:52 | HO.WOUND ---
Wound Consult: Initial 89yr old?female admitted to [facility] on 04/10/25 16:58 - See progress notes and H&P for detailed history.? Wound consult placed for Right Heel.? Patient currently intubated and ICU. Noted for wedges in use, heel boot protectors in place and SIPP activated. Of note patient is on pressers at this time which is likely impacting skin integrity - all preventative measures should remain in place in addition to treatment. Right Heel Etiology: ??Stage 1 Pressure Inury Measurements: 0.2cm x 0.3cm Wound Bed: intact red pink nonblanchable small area Drainage / Odor: None Edges: ? attached Sharon wound: pink blanchable tissue ? No Induration, Fluctuance or Warmth noted Pain: intubated Goals of Treatment: ? Off Laod Pressure Left heel noted for pink redness remains intact and blanchable - despite coloring noted in photo this tissue remains blanchable. Recommendations: 1. Turn and Reposition every 2 hours and as needed for patient comfort.? Use pillows or wedges to support off loading positions. 2. Off Load all bony prominences with use of pillows and heel boots if needed.? Apply Preventative foams where needed. ? 3. Monitor for incontinence and moisture control, use barrier creams when needed for prevention and treatment. 4. Provide adequate and supplemental nutrition.? 5. Continue low air loss mattress. 6. When applicable maintain blood glucose levels per Providers order. Right Heel - Bilateral Heels? - Elevate heels off of bed surface with pillows.? Float heels off of pillows.? Apply skin prep allow to dry.? Apply heel foam dressings, peel back and assess Q shift and change every 3 days and PRN. May use in combination with Heel boot protectors. Re-consult wound care Nurse for wound deterioration or wound changes.
--- NOTE | 2025-04-14 12:23 | W.MHC.ACPN ---
Advanced Care Planning Note Advanced Care Planning Note Discussed with: family member(s) Time spent (in minutes): 30 Narrative: I introduced myself to Ms. Turpin's son/HCP, other son, and daughter at the bedside; I offered updates and clarifications; we discussed that Ms. Turpin likely became apneic due to her critical illness, which likely lead to her cardiac arrest; we discussed that the care team nor family have appreciated Ms. Turpin waking nor exhibiting purposeful movements in the past days; moreover, Ms. Turpin's family described her worsening dementia, how she was always an independent person, and would likely not tolerate this current quality of life, even before her current admission; we discussed comfort-focused care, after which Ms. Portillo family believes is appropriate at this juncture, and ask for the process to be started likely 04/15; we also discussed DNR, after which Ms. Proctors family believes is appropriate at this time Problems Discussed (1) Cardiac arrest: (2) UTI (urinary tract infection):
--- NOTE | 2025-04-14 13:35 | MHC.CM.PN ---
Pt remains intubated in ICU: MD met w/family at length to review goals of care. Family has opted to transition pt to [facility] which will likely occur on 04/15. CM will follow for any changes to the d/c plan.
--- NOTE | 2025-04-14 19:02 | PC.NURSE ---
Sedation vacation? per JUL. Does not follow commands. Continues intubated, PSV trial for approx.5hrs, now on resting settings. S R-ST on tele,? levoped per JUL. OG clamp, Lezama patent and draining. Scatter bruising. Peripheral IVs.
--- NOTE | 2025-04-14 21:46 | HE.PHANOTE ---
RE: Vanco Renal function declining. Trough returned at 16.7. Dose reduced to 750mg q24h with predicted AUC 562, predicted trough 19. Next trough 04/15 @ 2100.
[2025-04-15] VITALS (41 sets, daily range): BP systolic 89–155; BP diastolic 39–69; PULSE 51–81; RESP 12–22; TEMP 34.6–37.8; O2SAT 92–100
[2025-04-15] MEDS: Hydrocortisone Sod Succ/PF 100 MG VIAL 50 MG IVPUSH ×4 (00:15→22:34)
[2025-04-15] MEDS: 0.9 % Sodium Chloride Flush 3 ML SYRINGE IVFLUSH ×3 (00:15→15:39)
[2025-04-15 05:38] LABS: MANUAL DIFF FLAG NO
[2025-04-15 05:39] LABS: Venous Blood Gas Refer to POC result
[2025-04-15 05:40] LABS: Hematocrit 33.3 % (37.0-47.0); Hemoglobin 10.7 g/dl (12.0-16.0); Imm Gran Abs Auto 0.06 X10*3/uL (0.00-0.03); Imm Gran Pct Auto 0.5 % (0.0-0.4); Lymphocytes Absolute Auto 0.8 X10*3/uL (1.2-4.9); Mean Corpuscular HGB Conc 32.1 g/dl (31.0-35.0); Mean Corpuscular Hemoglobin 28.8 pg (27.0-33.0); Mean Corpuscular Volume 89.8 fL (80.0-98.0); NRBC Abs Auto 0.000 X10*3/uL (0.0-0.012); NRBC Pct Auto 0.0 /100WBC (0.0-0.2); Platelet Count 204 X10*3/uL (160-400); Red Blood Count 3.71 X10*6/uL (4.20-5.50); White Blood Count 13.3 X10*3/uL (4.8-10.8)
[2025-04-15 05:54] LABS: VBG HCO3 28 mmol/L (22-26); VBG O2 % Saturation 96.0 %
[2025-04-15 06:07] LABS: Albumin Level 3.7 g/dL (3.5-5.0)
[2025-04-15] MEDS: levETIRAcetam in NaCl (iso-os) 1,000 MG/100 ML PIGGYBACK 400 MG IV (06:16)
[2025-04-15 06:17] LABS: Anion Gap 17 (12-20); Blood Urea Nitrogen 46 mg/dL (9-16); Calcium 9.1 mg/dL (8.4-10.2); Carbon Dioxide 25 mmol/L (22-29); Chloride 104 mmol/L (96-108); Creatinine Clr Calc Pharmacy 22.7; Estimated Glomerular Filt Rate 33; Magnesium 1.9 mg/dL (1.6-2.6); Potassium 3.6 mmol/L (3.3-5.1); Sodium 142 mmol/L (135-145)
--- NOTE | 2025-04-15 07:00 | HO.SKINPHOTO ---
Location: Left Forearm Category: Infiltration IV removed, extremity elevated, warm compress applied, DIESEL PILE HAMMER OPERATOR Maldonado aware
--- NOTE | 2025-04-15 07:34 | PM.CCPN ---
Subjective Subjective Date of Service: 04/15/25 Interval History: no significant overnight events; persistent lack of arousal and intermittent apnea Critical Care Time (minutes): 60 Physical Exam Vital Signs: Vital Signs: Last Vital Signs Temp 98.1 F 04/15/25 07:00 Pulse 51 04/15/25 07:00 Resp 13 04/15/25 07:00 BP 116/48 L 04/15/25 07:00 Pulse Ox 95 04/15/25 07:00 O2 Del Method Mechanical Ventil ation 04/15/25 07:00 O2 Flow Rate 100 04/12/25 23:00 FiO2 24 04/15/25 07:00 BMI result Body Mass Index 30.7 Const: Other: intubated, minimally sedated; no appreciable purposeful movements General: comfortable and no acute distress HEENT: Head: Yes normal to inspection, Yes normocephalic and Yes atraumatic Eyes: General: appearance normal, both eyes and all related structures Neck: Neck: Yes normal visual inspection, Yes full ROM, Yes no meningeal signs, Yes trachea midline and Yes supple Chest: Chest palpation & inspection: normal inspection of the chest Resp: Other: no appreciable overt rales, rhonchi, wheezing Effort & Inspection: normal respiratory effort Cardio: Rate: regular rate Rhythm: regular rhythm GI: Inspection: Yes normal to inspection, No Abdominal wall edema and No distended Palpation (GI): Soft to palpation, not firm, nontender, no guarding and not rigid Skin: General skin exam: no rashes or lesions noted Neuro: General: tone normal, moves all extremities and no meningeal signs Extrem: General: Yes normal to inspection, Yes full ROM, Yes capillary refill normal and Yes no clubbing, cyanosis or edema Psych: Other: unable to assess Objective Data Labs 04/15/25 05:31 04/15/25 05:31 Labs: Laboratory Results - last 24 hr 04/14/25 04/15/25 04/15/25 21:12 05:31 05:38 WBC 13.3 H RBC 3.71 L Hgb 10.7 L Hct 33.3 L MCV 89.8 MCH 28.8 MCHC 32.1 RDW 13.3 Plt Count 204 MPV 11.3 Immature Gran % (Auto) 0.5 H Neut % (Auto) 89.3 H Lymph % (Auto) 5.9 L Esmeralda % (Auto) 4.1 Eos % (Auto) 0.0 Baso % (Auto) 0.2 Lymph # (Auto) 0.8 L Esmeralda # (Auto) 0.5 Eos # (Auto) 0.0 Baso # (Auto) 0.0 Abs Immat Gran (auto) 0.06 H Absolute Neuts (auto) 11.9 H Absolute Nucleated RBC 0.000 Nucleated RBC % (auto) 0.0 VBG pH 7.45 H VBG pCO2 40 VBG pO2 77 VBG HCO3 28 H VBG O2 Saturation 96.0 VBG Base Excess 4.5 Sodium 142 Potassium 3.6 Chloride 104 Carbon Dioxide 25 Anion Gap 17 BUN 46 H Creatinine 1.51 H Estim Creat Clear Calc 22.7 Estimated GFR 33 Random Glucose 153 H Calcium 9.1 Phosphorus 4.5 Magnesium 1.9 Albumin 3.7 Random Vancomycin 16.7 Microbiology Microbiology Results: Microbiology 04/12/25 22:06 Blood - Venous Blood Culture - Preliminary No growth after 48 hours. 04/12/25 22:06 Blood - Venous Blood Culture - Preliminary No growth after 48 hours. 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, advanced dementia, recurrent UTIs d/t ESBL, presenting to ED on 04/10 w/ encephalopathy, found to have UTI, admitted medicine; hospital course c/b persistent encephalopathy/agitation; on 04/12 PM, patient reportedly developed tonic-clonic movements and agonal breathing, CPR performed w/ reported ROSC within 2 minutes N: question seizure, empiric levetiracetam, EEG 04/14 not suggestive of seizure activity; intubated, sedated w/ propofol gtt, wean as tolerated CV: hypotension, likely multi-factorial, vasodilatory s/p cardiac arrest, sedation, norepinephrine gtt, wean as tolerated R: likely respiratory arrest, d/t aspiration, intubated, wean as tolerated GI: no acute issues; NPO, consider tube feeds if not extubated : acute renal insufficiency, to closely monitor renal indices/electrolytes H: prior DVT home apixaban ID: UTI d/t ESBL on meropenem; empiric vanc initiated s/p cardiac arrest, to follow-up BCx 04/13 E: no acute issues; to monitor hypo-/hyper-glycemia P: advanced dementia S: daily ongoing goals of care discussion w/ family at bedside Quality Stroke Does the patient have a stroke diagnosis?: No VTE Prior VTE?: No VTE Risk Level:: Medical - moderate - high VTE Device Contraindication: N/A - Device Ordered VTE Drug Contraindication: N/A - Med Ordered
[2025-04-15] MEDS: Chlorhexidine Gluc Oral Rinse 15 ML MOUTHWASH BUCCAL ×3 (08:33→20:51)
--- NOTE | 2025-04-15 16:59 | PC.NURSE ---
Continues intubated, PSV trial for approx.3hrs, now on resting settings. Sedation vacation? per JUL. Does not follow commands. SR-ST on tele,? levoped per JUL. OG clamp, Lezama patent and draining. Scatter bruising, Stage 1 to right heel. Peripheral IVs.
[2025-04-16] VITALS (35 sets, daily range): BP systolic 101–159; BP diastolic 42–67; PULSE 60–88; RESP 12–24; TEMP 35–37.5; O2SAT 91–98
[2025-04-16] MEDS: 0.9 % Sodium Chloride Flush 3 ML SYRINGE IVFLUSH ×3 (00:30→15:34)
[2025-04-16 05:09] LABS: VBG HCO3 32 mmol/L (22-26); VBG O2 % Saturation 97.0 %
[2025-04-16] MEDS: Hydrocortisone Sod Succ/PF 100 MG VIAL 50 MG IVPUSH ×2 (05:13→17:17)
[2025-04-16] MEDS: levETIRAcetam in NaCl (iso-os) 1,000 MG/100 ML PIGGYBACK 400 MG IV (05:30)
[2025-04-16 05:37] LABS: Hematocrit 33.5 % (37.0-47.0); Hemoglobin 10.7 g/dl (12.0-16.0); Imm Gran Abs Auto 0.02 X10*3/uL (0.00-0.03); Imm Gran Pct Auto 0.3 % (0.0-0.4); Lymphocytes Absolute Auto 0.8 X10*3/uL (1.2-4.9); MANUAL DIFF FLAG NO; Mean Corpuscular HGB Conc 31.9 g/dl (31.0-35.0); Mean Corpuscular Hemoglobin 28.9 pg (27.0-33.0); Mean Corpuscular Volume 90.5 fL (80.0-98.0); NRBC Abs Auto 0.000 X10*3/uL (0.0-0.012); NRBC Pct Auto 0.0 /100WBC (0.0-0.2); Platelet Count 178 X10*3/uL (160-400); Red Blood Count 3.70 X10*6/uL (4.20-5.50); White Blood Count 7.3 X10*3/uL (4.8-10.8)
[2025-04-16 06:01] LABS: Albumin Level 3.6 g/dL (3.5-5.0); Anion Gap 16 (12-20); Blood Urea Nitrogen 58 mg/dL (9-16); Calcium 9.2 mg/dL (8.4-10.2); Carbon Dioxide 27 mmol/L (22-29); Chloride 107 mmol/L (96-108); Creatinine Clr Calc Pharmacy 29.5; Estimated Glomerular Filt Rate 44; Magnesium 2.1 mg/dL (1.6-2.6); Potassium 3.6 mmol/L (3.3-5.1); Sodium 146 mmol/L (135-145)
[2025-04-16 06:55] LABS: Venous Blood Gas Refer to POC result
[2025-04-16] MEDS: Chlorhexidine Gluc Oral Rinse 15 ML MOUTHWASH BUCCAL ×3 (08:17→21:35)
--- NOTE | 2025-04-16 09:32 | P.PNCC_ITS ---
Subjective Subjective Date of Service: 04/16/25 Interval History: improvement in mental status, opens eyes, tracts, and appears to answer some yes-no questions, though w/ persistent apnea Critical Care Time (minutes): 60 Physical Exam 2 Vital Signs: Vital Signs: Last Vital Signs Temp 98.6 F 04/16/25 08:00 Pulse 68 04/16/25 08:00 Resp 13 04/16/25 08:00 BP 134/53 L 04/16/25 08:00 Pulse Ox 94 04/16/25 08:00 O2 Del Method Mechanical Ventil ation 04/16/25 08:00 O2 Flow Rate 100 04/12/25 23:00 FiO2 24 04/16/25 08:35 BMI result Body Mass Index 30.7 Const: General: cooperative, healthy appearing, comfortable, no acute distress, alert, awake and Physically active HEENT: Head: Yes normal to inspection, Yes normocephalic and Yes atraumatic Eyes: General: appearance normal, both eyes and all related structures Neck: Neck: Yes normal visual inspection, Yes full ROM, Yes no meningeal signs, Yes trachea midline and Yes supple Chest: Chest palpation & inspection: normal inspection of the chest Resp: Other: no appreciable overt rales, rhonchi, wheezing Effort & Inspection: normal respiratory effort Cardio: Rate: regular rate Rhythm: regular rhythm GI: Inspection: Yes normal to inspection, No Abdominal wall edema and No distended Palpation (GI): Soft to palpation, not firm, nontender, no guarding and not rigid Skin: General skin exam: no rashes or lesions noted Neuro: General: tone normal, moves all extremities and no meningeal signs Extrem: Other: appreciable 1+ pitting edema to bilateral shins General: Yes normal to inspection, Yes full ROM and Yes capillary refill normal Psych: Appearance: grossly normal Objective Data Labs 04/16/25 04:57 04/16/25 04:57 Labs: Laboratory Results - last 24 hr 04/15/25 04/16/25 04/16/25 20:48 04:57 04:57 WBC 7.3 RBC 3.70 L Hgb 10.7 L Hct 33.5 L MCV 90.5 MCH 28.9 MCHC 31.9 RDW 13.2 Plt Count 178 MPV 12.0 Immature Gran % (Auto) 0.3 Neut % (Auto) 82.5 H Lymph % (Auto) 10.7 L Davidson % (Auto) 6.3 Eos % (Auto) 0.1 Baso % (Auto) 0.1 Lymph # (Auto) 0.8 L Davidson # (Auto) 0.5 Eos # (Auto) 0.0 Baso # (Auto) 0.0 Abs Immat Gran (auto) 0.02 Absolute Neuts (auto) 6.0 Absolute Nucleated RBC 0.000 Nucleated RBC % (auto) 0.0 VBG pH VBG pCO2 VBG pO2 VBG HCO3 VBG O2 Saturation VBG Base Excess Sodium 146 H Potassium 3.6 Chloride 107 Carbon Dioxide 27 Anion Gap 16 BUN 58 H Creatinine 1.16 Estim Creat Clear Calc 29.5 Estimated GFR 44 Random Glucose 114 Calcium 9.2 Phosphorus 3.3 Magnesium 2.1 Albumin 3.6 Cancelled Random Vancomycin 19.0 04/16/25 05:05 WBC RBC Hgb Hct MCV MCH MCHC RDW Plt Count MPV Immature Gran % (Auto) Neut % (Auto) Lymph % (Auto) Davidson % (Auto) Eos % (Auto) Baso % (Auto) Lymph # (Auto) Davidson # (Auto) Eos # (Auto) Baso # (Auto) Abs Immat Gran (auto) Absolute Neuts (auto) Absolute Nucleated RBC Nucleated RBC % (auto) VBG pH 7.47 H VBG pCO2 44 VBG pO2 84 VBG HCO3 32 H VBG O2 Saturation 97.0 VBG Base Excess 8.4 Sodium Potassium Chloride Carbon Dioxide Anion Gap BUN Creatinine Estim Creat Clear Calc Estimated GFR Random Glucose Calcium Phosphorus Magnesium Albumin Random Vancomycin Microbiology Microbiology Results: Microbiology 04/12/25 22:06 Blood - Venous Blood Culture - Preliminary No growth after 48 hours. 04/12/25 22:06 Blood - Venous Blood Culture - Preliminary No growth after 48 hours. 04/10/25 15:25 Urine clean catch Urine Culture - Final Morganella morganii ssp melina Progress Note: A&P Assessment and plan (1) Cardiac arrest: Status: Acute (2) Respiratory failure: Status: Acute (3) Aspiration into airway: Status: Acute (4) UTI (urinary tract infection): Status: Acute Plan Patient is a 89 Y F w/ hypertension, hyperlipidemia, prior DVT on rivaroxaban, advanced dementia, recurrent UTIs d/t ESBL, presenting to ED on 04/10 w/ encephalopathy, found to have UTI, admitted medicine; hospital course c/b persistent encephalopathy/agitation; on 04/12 PM, patient reportedly developed tonic-clonic movements and agonal breathing, CPR performed w/ reported ROSC within 2 minutes N: intubated, sedated w/ propofol gtt, wean as tolerated CV: hypotension, likely multi-factorial, vasodilatory s/p cardiac arrest, sedation, norepinephrine gtt, wean as tolerated R: likely respiratory arrest, d/t aspiration, intubated 04/12, daily SBT w/ appreciable apnea GI: no acute issues; tube feeds : acute renal insufficiency, improved, to closely monitor renal indices/electrolytes H: prior DVT home apixaban ID: UTI d/t ESBL on meropenem; empiric vanc initiated s/p cardiac arrest, to follow-up BCx 04/13 E: no acute issues; to monitor hypo-/hyper-glycemia P: advanced dementia S: daily ongoing goals of care discussion w/ family at bedside Quality Stroke Does the patient have a stroke diagnosis?: No VTE Prior VTE?: No VTE Risk Level:: Medical - moderate - high VTE Device Contraindication: N/A - Device Ordered VTE Drug Contraindication: N/A - Med Ordered
--- NOTE | 2025-04-16 18:14 | PC.NURSE ---
Sedation vacation? per MAR.Opens eyes spontaneously, tracks the speaker,? follows simple commands. Continues intubated, unable to tolerate? PSV trial today. . SR on tele.. OG tube in place tolerating TF without sign of intolerance. Lezama patent and draining. Scatter bruising, Stage 1 to right heel. Peripheral IVs.
[2025-04-17] VITALS (34 sets, daily range): BP systolic 103–187; BP diastolic 36–80; PULSE 59–92; RESP 12–30; TEMP 34.2–37.3; O2SAT 88–100; BMI 29.0
[2025-04-17] MEDS: 0.9 % Sodium Chloride Flush 3 ML SYRINGE IVFLUSH ×4 (00:34→23:03)
[2025-04-17 05:29] LABS: VBG HCO3 33 mmol/L (22-26); VBG O2 % Saturation 98.0 %
[2025-04-17] MEDS: Hydrocortisone Sod Succ/PF 100 MG VIAL 50 MG IVPUSH (06:11)
[2025-04-17 06:12] LABS: MANUAL DIFF FLAG NO
[2025-04-17 06:14] LABS: Hematocrit 34.7 % (37.0-47.0); Hemoglobin 10.6 g/dl (12.0-16.0); Imm Gran Abs Auto 0.04 X10*3/uL (0.00-0.03); Imm Gran Pct Auto 0.6 % (0.0-0.4); Lymphocytes Absolute Auto 1.2 X10*3/uL (1.2-4.9); Mean Corpuscular HGB Conc 30.5 g/dl (31.0-35.0); Mean Corpuscular Hemoglobin 28.6 pg (27.0-33.0); Mean Corpuscular Volume 93.5 fL (80.0-98.0); NRBC Abs Auto 0.000 X10*3/uL (0.0-0.012); NRBC Pct Auto 0.0 /100WBC (0.0-0.2); Platelet Count 190 X10*3/uL (160-400); Red Blood Count 3.71 X10*6/uL (4.20-5.50); White Blood Count 6.6 X10*3/uL (4.8-10.8)
[2025-04-17 06:32] LABS: Albumin Level 3.3 g/dL (3.5-5.0); Anion Gap 14 (12-20); Blood Urea Nitrogen 73 mg/dL (9-16); Calcium 9.6 mg/dL (8.4-10.2); Carbon Dioxide 30 mmol/L (22-29); Chloride 109 mmol/L (96-108); Creatinine Clr Calc Pharmacy 32.6; Estimated Glomerular Filt Rate 51; Magnesium 2.3 mg/dL (1.6-2.6); Potassium 3.5 mmol/L (3.3-5.1); Sodium 149 mmol/L (135-145)
[2025-04-17] MEDS: Chlorhexidine Gluc Oral Rinse 15 ML MOUTHWASH BUCCAL ×3 (07:50→20:39)
[2025-04-17 08:11] LABS: Venous Blood Gas Refer to POC result
[2025-04-17] MEDS: Albumin Human 25 % 100 ML IV ×3 (10:07→20:40)
--- NOTE | 2025-04-17 10:26 | MHC.CLN ---
F/U PT REMAINS INTUBATED DISCUSSED AT ROUNDS WITH RECOMMEND VITAL AF 1.2 AT MAX GOAL RATE 45ML/HR WITH 240ML FREE WATER Q 8 HRS TO PROVIDE 1296KCALS, 81G PROTEIN (1.5G/KG), 1596ML TOTAL FREE WATER FROM FORMULA AND FLUSHES (30ML/KG) MONITOR TOLERANCE AND LYTES
--- NOTE | 2025-04-17 11:19 | PM.CCPN ---
Subjective Subjective Date of Service: 04/17/25 Interval History: 89-year-old lady with underlying Alzheimer's dementia with some agitation, recurrent UTIs, including ESBL Klebsiella, DVT on Xarelto, hypertension admitted on 04/10/2025 with acute UTI with hospital course complicated by pulmonary aspiration requiring intubation on 04/12/2025 and transferred to the intensive care unit. Also, with poor arousal with sedation vacations and poor tolerance of pressor support trials. No events overnight. Critical Care Time (minutes): 60 Physical Exam Vital Signs: Vital Signs: Last Vital Signs Temp 97.5 F 04/17/25 08:00 Pulse 67 04/17/25 10:00 Resp 15 04/17/25 10:00 BP 152/55 H 04/17/25 10:00 Pulse Ox 95 04/17/25 10:00 O2 Del Method Mechanical Ventil ation 04/17/25 10:00 O2 Flow Rate 24 04/17/25 10:00 FiO2 25 04/17/25 11:07 BMI result Body Mass Index 29.0 Const: General: no acute distress and other (Sedated on ventilatory support) Eyes: Sclerae: sclerae normal EOM: EOMs intact bilaterally Neck: Neck: Yes no lymphadenopathy, Yes trachea midline and Yes supple Resp: Auscultation: crackles (Mild bilateral) Cardio: Rate: regular rate Rhythm: regular rhythm Heart sounds: no gallops, no murmurs and no rubs GI: Palpation (GI): Soft to palpation and Other GI palpation findings present ( Nontender) Auscultation: normal bowel sounds Extrem: General: No clubbing, No cyanosis and Yes edema (1+ bilateral) Objective Data Labs 04/17/25 05:19 04/17/25 05:19 Labs: Laboratory Results - last 24 hr 04/16/25 04/17/25 04/17/25 20:52 05:19 05:25 WBC 6.6 RBC 3.71 L Hgb 10.6 L Hct 34.7 L MCV 93.5 MCH 28.6 MCHC 30.5 L RDW 13.0 Plt Count 190 MPV 12.3 Immature Gran % (Auto) 0.6 H Neut % (Auto) 68.3 Lymph % (Auto) 18.[address] [place] % (Auto) 11.3 H Eos % (Auto) 1.1 Baso % (Auto) 0.2 Lymph # (Auto) 1.2 [place] # (Auto) 0.8 Eos # (Auto) 0.1 Baso # (Auto) 0.0 Abs Immat Gran (auto) 0.04 H Absolute Neuts (auto) 4.5 Absolute Nucleated RBC 0.000 Nucleated RBC % (auto) 0.0 VBG pH 7.56 H VBG pCO2 37 VBG pO2 87 VBG HCO3 33 H VBG O2 Saturation 98.0 VBG Base Excess 10.9 Sodium 149 H Potassium 3.5 Chloride 109 H Carbon Dioxide 30 H Anion Gap 14 BUN 73 H Creatinine 1.02 Estim Creat Clear Calc 32.6 Estimated GFR 51 Random Glucose 141 H Calcium 9.6 Phosphorus 2.5 L Magnesium 2.3 Albumin 3.3 L Random Vancomycin 16.1 Microbiology Microbiology Results: Microbiology 04/12/25 22:06 Blood - Venous Blood Culture - Preliminary No growth after 48 hours. 04/12/25 22:06 Blood - Venous Blood Culture - Preliminary No growth after 48 hours. 04/10/25 15:25 Urine clean catch Urine Culture - Final Morganella morganii ssp melina Progress Note: A&P Assessment and plan (1) Alzheimer's dementia, late onset, with behavioral disturbance: Status: Acute (2) Aspiration into airway: Status: Acute (3) Acute respiratory failure with hypoxia: Status: Acute (4) Pulmonary edema: Status: Acute (5) Recurrent UTI: Status: Acute (6) GISSELL (acute kidney injury): Status: Acute Plan Assessment: 89-year-old lady with underlying advanced Alzheimer's dementia, recurrent UTIs, DVT admitted with recurrent UTI further complicated by pulmonary aspiration requiring intubation and ventilatory support. Plan: Neuro: Poor arousal with sedation vacation, slowly improving. Underlying advanced Alzheimer's dementia. Cardiac: No acute issues. Pulmonary: Acute respiratory failure with hypoxia and hypercapnia secondary to pulmonary aspiration on the background of advanced 's dementia. Continue to titrate off ventilatory support as tolerated. Renal: GISSELL, improving. Non oliguric. Continue to monitor renal indices and urine output. Endo: No acute issues. GI: No acute issues. ID: Morganella UTI, antibiotics switched to Levaquin. Heme/Onc: No acute issues. Psych: No acute issues. Miscellaneous: No acute issues. Prophylaxis: Lovenox, PPI Diet: Tube feeds Critical care time spent: 60 minutes Quality Stroke Does the patient have a stroke diagnosis?: No VTE Prior VTE?: No VTE Risk Level:: Medical - moderate - high VTE Device Contraindication: N/A - Device Ordered VTE Drug Contraindication: N/A - Med Ordered
--- NOTE | 2025-04-17 11:47 | MHC.CM.PN ---
Pt still intubated in ICU: IV ATB to be changed, Albumin will be given: Attempt extubation on 04/18. Broad STR referrals made based on pt's deconditioning and high medical care requirements. CM to follow
[2025-04-17] MEDS: Furosemide 40 MG/4 ML VIAL IVPUSH (12:42)
--- NOTE | 2025-04-17 17:34 | PC.NURSE ---
Continues intubated, unable to tolerate? PSV trial today. Sedation vacation? per MAR. Opens eyes spontaneously, tracks the speaker,? follows simple commands. SR on tele. OG tube in place tolerating TF without sign of intolerance. LBM 04/17. External catheter in place. Scatter bruising, Stage 1 to right heel.Peripheral IVs.
[2025-04-17 20:41] LABS: Anion Gap 12 (12-20); Blood Urea Nitrogen 70 mg/dL (9-16); Calcium 10.3 mg/dL (8.4-10.2); Carbon Dioxide 33 mmol/L (22-29); Chloride 106 mmol/L (96-108); Creatinine Clr Calc Pharmacy 32.9; Estimated Glomerular Filt Rate 52; Magnesium 2.1 mg/dL (1.6-2.6); Potassium 3.3 mmol/L (3.3-5.1); Sodium 148 mmol/L (135-145)
[2025-04-17] MEDS: Potassium Phosphate/NS 15 MMOL/250 ML PLAST..BAG 62.5 MMOL IV (21:21)
[2025-04-17] MEDS: Sodium,Potassium Phosphates POWD.PACK 2 PACKET PO (21:21)
[2025-04-18] VITALS (31 sets, daily range): BP systolic 107–161; BP diastolic 41–78; PULSE 52–677; RESP 12–35; TEMP 33–37.3; O2SAT 91–100; BMI 30.7
[2025-04-18] MEDS: Albumin Human 25 % 100 ML IV (02:56)
[2025-04-18 05:03] LABS: VBG HCO3 40 mmol/L (22-26); VBG O2 % Saturation 77.0 %
[2025-04-18 05:54] LABS: MANUAL DIFF FLAG NO
--- NOTE | 2025-04-18 06:07 | PC.NURSE ---
CARE ASSUMED 7PM..REMAINS INTUBATED/VCV VENT SUPPORT....PER SHIFT REPORT PATIENT OFF CONTINUOUS SEDATION X2 DAYS..PATIENT AWAKE..TRACKS SPEAKER..NODS YES/NO TO SIMPLE QUESTIONS BUT INCONSISTENT RESPONSES..BACK...PERIODS OF AGITATION..ATTEMPTING TO GRAB AT LINES AND ETT DESPITE BILATERAL SOFT WRIST RESTRAINTS....RECURRANTLY GAGGING/COUGHING AGAINST ETT WITH MARKED VENT DYSYNCHRONY...PRN DILAUDID ORDERED FOR VENT SYNCHRONY GIVEN 19:34 WITH ONLY TRANSIENT EFFECT..ICU PROVIDER JOCY VELEZ ANTHROPOLOGY PROFESSOR AT BEDSIDE...VERSED 1 MG IV X1 GIVEN 19:40 WITH RESTFUL EFFECT AND RETURN OF VENT SYNCHRONY...ALBUMEN/KPO4 IV AND NEUTRAPHOS 2 PACKETS VIA OG-TUBE GIVEN PER JUL...TUBE FEEDS 45 CC/HR AND H20 FLUSH 240ML Q6 HOURS.....INCONTINANT MULTIPLE LOOSE BROWN STOOLS...PURWIK EXTERNAL CATHETER COLLECTED 700ML DEEP YELLOW URINE PLUS LARGE URINE INCONTINANCE WHEN PURWIK DISLODGE DURING FOLLOW UP PERIOD OF RESTLESSNESS...REPEAT DILAUDID GIVEN 01:57 FOR RECURRANT VENT DYSYNCHRONY...REMAINS AWAKE/TRACKS SPEAKER AND NODS TO SIMPLE QUESTIONS...CONTINUES TO ATTEMPT TO PULL ETT DURING POSITIONING AND PERSONAL CARE...BILATERAL WRIST RESTRAINTS MAINTAINED FOR AIRWAY SAFETY..NSR NO ECTOPY
[2025-04-18 06:18] LABS: Hematocrit 27.3 % (37.0-47.0); Hemoglobin 8.4 g/dl (12.0-16.0); Imm Gran Abs Auto 0.02 X10*3/uL (0.00-0.03); Imm Gran Pct Auto 0.3 % (0.0-0.4); Lymphocytes Absolute Auto 1.4 X10*3/uL (1.2-4.9); Mean Corpuscular HGB Conc 30.8 g/dl (31.0-35.0); Mean Corpuscular Hemoglobin 28.8 pg (27.0-33.0); Mean Corpuscular Volume 93.5 fL (80.0-98.0); NRBC Abs Auto 0.000 X10*3/uL (0.0-0.012); NRBC Pct Auto 0.0 /100WBC (0.0-0.2); Platelet Count 138 X10*3/uL (160-400); Red Blood Count 2.92 X10*6/uL (4.20-5.50); White Blood Count 6.0 X10*3/uL (4.8-10.8)
[2025-04-18 06:19] LABS: Albumin Level 4.6 g/dL (3.5-5.0); Anion Gap 14 (12-20); Blood Urea Nitrogen 71 mg/dL (9-16); Calcium 10.2 mg/dL (8.4-10.2); Carbon Dioxide 33 mmol/L (22-29); Chloride 104 mmol/L (96-108); Creatinine Clr Calc Pharmacy 31.1; Estimated Glomerular Filt Rate 47; Magnesium 1.9 mg/dL (1.6-2.6); Potassium 3.4 mmol/L (3.3-5.1); Sodium 148 mmol/L (135-145)
[2025-04-18 06:21] LABS: Venous Blood Gas Refer to POC result
[2025-04-18] MEDS: 0.9 % Sodium Chloride Flush 3 ML SYRINGE IVFLUSH ×2 (07:27→17:29)
[2025-04-18] MEDS: Potassium Chloride Packet 20 MEQ PACKET 40 MEQ OG-TUBE ×2 (07:27→09:42)
[2025-04-18] MEDS: Chlorhexidine Gluc Oral Rinse 15 ML MOUTHWASH BUCCAL ×2 (08:09→20:14)
[2025-04-18] MEDS: Furosemide 40 MG/4 ML VIAL IVPUSH ×2 (09:48→17:29)
--- NOTE | 2025-04-18 10:29 | MHC.CM.PN ---
Pt remains on vent support with no plans to extubate today per MD. Family is considering goals of care at this time - pt from [facility] but if she survives this hospitalization, will need SNF. Referrals have been made. CM to follow
--- NOTE | 2025-04-18 11:21 | PC.RT ---
Pt placed on PSV at approx 0725. Pt isai well. Positive cuff leak. MD order for extubation. Pt control extubated without complications. Pt placed on 2L, SATs 97%. No stridor noted. Pt comfortable at this time, will continue to monitor.
--- NOTE | 2025-04-18 11:26 | PM.CCPN ---
Subjective Subjective Date of Service: 04/18/25 Interval History: 89-year-old lady with underlying Alzheimer's dementia with some agitation, recurrent UTIs, including ESBL Klebsiella, DVT on Xarelto, hypertension admitted on 04/10/2025 with acute UTI with hospital course complicated by pulmonary aspiration requiring intubation on 04/12/2025 and transferred to the intensive care unit. Also, with poor arousal with sedation vacations and poor tolerance of pressure support trials. No events overnight. Critical Care Time (minutes): 60 Physical Exam Vital Signs: Vital Signs: Last Vital Signs Temp 98.2 F 04/18/25 08:00 Pulse 67 04/18/25 11:00 Resp 22 H 04/18/25 11:00 BP 128/48 L 04/18/25 11:00 Pulse Ox 96 04/18/25 11:00 O2 Del Method Mechanical Ventil ation 04/18/25 11:00 O2 Flow Rate 24 04/17/25 10:00 FiO2 25 04/18/25 11:00 BMI result Body Mass Index 30.7 Const: General: no acute distress and other (Sedated on ventilatory support) Eyes: Sclerae: sclerae normal EOM: EOMs intact bilaterally Neck: Neck: Yes no lymphadenopathy, Yes trachea midline and Yes supple Resp: Effort & Inspection: normal respiratory effort and no respiratory distress Auscultation: clear to auscultation bilaterally Cardio: Rate: regular rate Rhythm: regular rhythm Heart sounds: no gallops, no murmurs and no rubs GI: Palpation (GI): Soft to palpation and Other GI palpation findings present ( Nontender) Auscultation: normal bowel sounds Extrem: General: Yes no pedal edema, No clubbing and No cyanosis Objective Data Labs 04/18/25 04:56 04/18/25 04:56 Labs: Laboratory Results - last 24 hr 04/17/25 04/18/25 04/18/25 20:14 04:56 04:58 WBC 6.0 RBC 2.92 L D Hgb 8.4 L D Hct 27.3 L D MCV 93.5 MCH 28.8 MCHC 30.8 L RDW 13.2 Plt Count 138 L D MPV 12.0 Immature Gran % (Auto) 0.3 Neut % (Auto) 63.6 Lymph % (Auto) 23.0 [place] % (Auto) 9.9 Eos % (Auto) 2.9 Baso % (Auto) 0.3 Lymph # (Auto) 1.4 [place] # (Auto) 0.6 Eos # (Auto) 0.2 Baso # (Auto) 0.0 Abs Immat Gran (auto) 0.02 Absolute Neuts (auto) 3.8 Absolute Nucleated RBC 0.000 Nucleated RBC % (auto) 0.0 VBG pH 7.51 H VBG pCO2 50 VBG pO2 50 VBG HCO3 40 H VBG O2 Saturation 77.0 VBG Base Excess 15.7 Sodium 148 H 148 H Potassium 3.3 3.4 Chloride 106 104 Carbon Dioxide 33 H 33 H Anion Gap 12 14 BUN 70 H 71 H Creatinine 1.01 1.10 Estim Creat Clear Calc 32.9 31.1 Estimated GFR 52 47 Random Glucose 95 98 Calcium 10.3 H D 10.2 Phosphorus 1.4 L 3.7 Magnesium 2.1 1.9 Albumin 4.6 Microbiology Microbiology Results: Microbiology 04/12/25 22:06 Blood - Venous Blood Culture - Final No growth after 5 days. 04/12/25 22:06 Blood - Venous Blood Culture - Final No growth after 5 days. 04/10/25 15:25 Urine clean catch Urine Culture - Final Morganella morganii ssp melina Progress Note: A&P Assessment and plan (1) GISSELL (acute kidney injury): Status: Acute (2) Alzheimer's dementia, late onset, with behavioral disturbance: Status: Acute (3) Acute respiratory failure with hypoxia: Status: Acute (4) Aspiration into airway: Status: Acute (5) Pulmonary edema: Status: Acute Plan Assessment: 89-year-old lady with underlying advanced Alzheimer's dementia, recurrent UTIs, DVT admitted with recurrent UTI further complicated by pulmonary aspiration requiring intubation and ventilatory support. Plan: Neuro: Poor arousal with sedation vacation, slowly improving. Underlying advanced Alzheimer's dementia. Cardiac: No acute issues. Pulmonary: Acute respiratory failure with hypoxia and hypercapnia secondary to pulmonary aspiration on the background of advanced 's dementia. Continue to titrate off ventilatory support as tolerated. Renal: GISSELL, improving. Non oliguric. Continue to monitor renal indices and urine output. Endo: No acute issues. GI: No acute issues. ID: Morganella UTI, continue Levaquin. Heme/Onc: No acute issues. Psych: No acute issues. Miscellaneous: No acute issues. Prophylaxis: Lovenox, PPI Diet: Tube feeds Critical care time spent: 60 minutes Quality Stroke Does the patient have a stroke diagnosis?: No VTE Prior VTE?: No VTE Risk Level:: Medical - moderate - high VTE Device Contraindication: N/A - Device Ordered VTE Drug Contraindication: N/A - Med Ordered
[2025-04-18] MEDS: Albuterol/Iprat 2.5/0.5MG 3 ML AMPUL.NEB INHALE (14:49)
[2025-04-18 17:06] LABS: Anion Gap 17 (12-20); Blood Urea Nitrogen 66 mg/dL (9-16); Calcium 11.3 mg/dL (8.4-10.2); Carbon Dioxide 33 mmol/L (22-29); Chloride 105 mmol/L (96-108); Creatinine Clr Calc Pharmacy 30.8; Estimated Glomerular Filt Rate 46; Potassium 4.7 mmol/L (3.3-5.1); Sodium 150 mmol/L (135-145)
--- NOTE | 2025-04-18 17:16 | PC.NURSE ---
Assumed care at 0700. Upon initial assessment, pt has no drips running. Tube feed running at goal rate. Pt resting with occasional grimaces & shaking head to and fro. Pt placed on PSV of 8/5 at fio2 of 25% by RT at approx 0725. At 0930, pt not following commands. Pt occasionally tracks visually, unreliably answers yes/no questions. Pt remains drowsy/obtunded. Per MD pt to go for head MRI tomorrow if mental status remains unchanged. At 1100, pt more awake, answering some yes/no questions, visually tracking, and following some simple commands. MD made aware. MD ordered extubation. Pt uneventfully extubated at 1114. RT at bedside. Pt subsequently placed on 2L o2 via nasal cannula. Camera placed in room for patient safety. Pt awake & calm. Pt repositioned q2hr as tolerated. Fall & safety precautions in place. See MAR and assessments for further details.
[2025-04-18 20:27] LABS: Anion Gap 18 (12-20); Blood Urea Nitrogen 65 mg/dL (9-16); Calcium 11.4 mg/dL (8.4-10.2); Carbon Dioxide 35 mmol/L (22-29); Chloride 102 mmol/L (96-108); Creatinine Clr Calc Pharmacy 29.2; Estimated Glomerular Filt Rate 44; Magnesium 1.8 mg/dL (1.6-2.6); Potassium 4.5 mmol/L (3.3-5.1); Sodium 150 mmol/L (135-145)
[2025-04-19] VITALS (16 sets, daily range): BP systolic 125–149; BP diastolic 49–84; PULSE 68–102; RESP 18–33; TEMP 36.3–37.1; O2SAT 92–98; BMI 28.0
[2025-04-19 05:22] LABS: VBG HCO3 42 mmol/L (22-26); VBG O2 % Saturation 83.0 %
[2025-04-19 05:27] LABS: MANUAL DIFF FLAG NO
[2025-04-19 05:30] LABS: Hematocrit 35.1 % (37.0-47.0); Hemoglobin 10.9 g/dl (12.0-16.0); Imm Gran Abs Auto 0.04 X10*3/uL (0.00-0.03); Imm Gran Pct Auto 0.5 % (0.0-0.4); Lymphocytes Absolute Auto 1.4 X10*3/uL (1.2-4.9); Mean Corpuscular HGB Conc 31.1 g/dl (31.0-35.0); Mean Corpuscular Hemoglobin 28.6 pg (27.0-33.0); Mean Corpuscular Volume 92.1 fL (80.0-98.0); NRBC Abs Auto 0.000 X10*3/uL (0.0-0.012); NRBC Pct Auto 0.0 /100WBC (0.0-0.2); Platelet Count 183 X10*3/uL (160-400); Red Blood Count 3.81 X10*6/uL (4.20-5.50); White Blood Count 8.3 X10*3/uL (4.8-10.8)
[2025-04-19 05:42] LABS: Albumin Level 4.9 g/dL (3.5-5.0); Anion Gap 16 (12-20); Blood Urea Nitrogen 63 mg/dL (9-16); Calcium 11.6 mg/dL (8.4-10.2); Carbon Dioxide 34 mmol/L (22-29); Chloride 100 mmol/L (96-108); Creatinine Clr Calc Pharmacy 30.3; Estimated Glomerular Filt Rate 45; Magnesium 1.9 mg/dL (1.6-2.6); Potassium 4.1 mmol/L (3.3-5.1); Sodium 146 mmol/L (135-145)
--- NOTE | 2025-04-19 09:45 | PM.CCPN ---
Subjective Subjective Date of Service: 04/19/25 Interval History: 89-year-old lady with underlying Alzheimer's dementia with some agitation, recurrent UTIs, including ESBL Klebsiella, DVT on Xarelto, hypertension admitted on 04/10/2025 with acute UTI with hospital course complicated by pulmonary aspiration requiring intubation on 04/12/2025 and transferred to the intensive care unit. Diuresed and extubated uneventfully on 04/18/2025. No events overnight. Critical Care Time (minutes): 0 Physical Exam Vital Signs: Vital Signs: Last Vital Signs Temp 97.4 F 04/19/25 08:00 Pulse 76 04/19/25 08:00 Resp 29 H 04/19/25 08:00 BP 137/60 04/19/25 08:00 Pulse Ox 92 04/19/25 08:00 O2 Del Method Nasal Cannula 04/19/25 08:00 O2 Flow Rate 1 04/19/25 08:00 FiO2 25 04/18/25 11:00 BMI result Body Mass Index 28.0 Const: General: no acute distress, alert, awake and confusion Orientation/consciousness: confusion Eyes: Sclerae: sclerae normal EOM: EOMs intact bilaterally Neck: Neck: Yes no lymphadenopathy, Yes trachea midline and Yes supple Resp: Effort & Inspection: normal respiratory effort and no respiratory distress Auscultation: clear to auscultation bilaterally Cardio: Rate: regular rate Rhythm: regular rhythm Heart sounds: no gallops, no murmurs and no rubs GI: Palpation (GI): Soft to palpation and Other GI palpation findings present ( Nontender) Auscultation: normal bowel sounds Neuro: General: confusion Extrem: General: Yes no pedal edema, No clubbing and No cyanosis Objective Data Labs 04/19/25 05:14 04/19/25 05:14 Labs: Laboratory Results - last 24 hr 04/18/25 04/18/25 04/19/25 15:51 19:55 05:14 WBC 8.3 RBC 3.81 L D Hgb 10.9 L D Hct 35.1 L D MCV 92.1 MCH 28.6 MCHC 31.1 RDW 12.8 Plt Count 183 D MPV 11.9 Immature Gran % (Auto) 0.5 H Neut % (Auto) 68.8 Lymph % (Auto) 16.4 L [place] % (Auto) 8.9 Eos % (Auto) 4.9 H Baso % (Auto) 0.5 Lymph # (Auto) 1.4 [place] # (Auto) 0.7 Eos # (Auto) 0.4 Baso # (Auto) 0.0 Abs Immat Gran (auto) 0.04 H Absolute Neuts (auto) 5.7 Absolute Nucleated RBC 0.000 Nucleated RBC % (auto) 0.0 VBG pH VBG pCO2 VBG pO2 VBG HCO3 VBG O2 Saturation VBG Base Excess Sodium 150 H 150 H 146 H Potassium 4.7 D 4.5 4.1 Chloride 105 102 100 Carbon Dioxide 33 H 35 H 34 H Anion Gap 17 18 16 BUN 66 H 65 H 63 H Creatinine 1.11 1.17 1.13 Estim Creat Clear Calc 30.8 29.2 30.3 Estimated GFR 46 44 45 Random Glucose 102 112 114 Calcium 11.3 H D 11.4 H 11.6 H Phosphorus 3.2 3.2 Magnesium 1.8 1.9 Albumin 4.9 04/19/25 05:18 WBC RBC Hgb Hct MCV MCH MCHC RDW Plt Count MPV Immature Gran % (Auto) Neut % (Auto) Lymph % (Auto) [place] % (Auto) Eos % (Auto) Baso % (Auto) Lymph # (Auto) [place] # (Auto) Eos # (Auto) Baso # (Auto) Abs Immat Gran (auto) Absolute Neuts (auto) Absolute Nucleated RBC Nucleated RBC % (auto) VBG pH 7.56 H VBG pCO2 47 VBG pO2 54 VBG HCO3 42 H VBG O2 Saturation 83.0 VBG Base Excess 18.2 Sodium Potassium Chloride Carbon Dioxide Anion Gap BUN Creatinine Estim Creat Clear Calc Estimated GFR Random Glucose Calcium Phosphorus Magnesium Albumin Microbiology Microbiology Results: Microbiology 04/12/25 22:06 Blood - Venous Blood Culture - Final No growth after 5 days. 04/12/25 22:06 Blood - Venous Blood Culture - Final No growth after 5 days. 04/10/25 15:25 Urine clean catch Urine Culture - Final Morganella morganii ssp melina Progress Note: A&P Assessment and plan (1) GISSELL (acute kidney injury): Status: Acute (2) Recurrent UTI: Status: Acute (3) Alzheimer's dementia, late onset, with behavioral disturbance: Status: Acute (4) Aspiration into airway: Status: Acute Plan Assessment: 89-year-old lady with underlying advanced Alzheimer's dementia, recurrent UTIs, DVT admitted with recurrent UTI further complicated by pulmonary aspiration requiring intubation and ventilatory support. Plan: Neuro: No acute issues. Underlying advanced Alzheimer's dementia. Cardiac: No acute issues. Pulmonary: Acute respiratory failure with hypoxia and hypercapnia secondary to pulmonary aspiration on the background of advanced Alzheimer's dementia. Extubated uneventfully on 04/18/2025. Renal: GISSELL, improving. Non oliguric. Continue to monitor renal indices and urine output. Endo: No acute issues. GI: No acute issues. ID: Morganella UTI, continue Levaquin. Heme/Onc: No acute issues. Psych: No acute issues. Miscellaneous: No acute issues. Prophylaxis: Lovenox Diet: Pending swallow evaluation Quality Stroke Does the patient have a stroke diagnosis?: No VTE Prior VTE?: No VTE Risk Level:: Medical - moderate - high VTE Device Contraindication: N/A - Device Ordered VTE Drug Contraindication: N/A - Med Ordered
[2025-04-19] MEDS: 0.9 % Sodium Chloride Flush 3 ML SYRINGE IVFLUSH ×3 (10:03→19:26)
[2025-04-19] MEDS: Furosemide 40 MG/4 ML VIAL IVPUSH ×2 (10:05→19:27)
--- NOTE | 2025-04-19 10:08 | MHC.CLN ---
F/U PT EXTUBATED YESTERDAY DISCUSSED AT ROUNDS WITH DIET RX: NPO PENDING SWALLOW EVAL FRAGILE SKIN WHEN DIET TO ADVANCE RECOMMEND REGULAR WITH ENSURE BID TO INCREASE KCALS FOLLOWING WITH TEAM
[2025-04-19 10:33] LABS: Venous Blood Gas Refer to POC result
--- NOTE | 2025-04-19 13:18 | MHC.SL.SWA ---
Speech Pathologist Impression: Mild oropharyngeal dysphagia Risk of Aspiration Due to: Recent extubation Hx of Alzheimer's dementia Hx of aspiration event (recent) Advanced age Dysphasia Diet Status: Liquid Consistency and Strategies for Safe Swallow: Liquid Intake Recommendation: Thin Liquid Intake Strategies: Solid Food Consistency: Dietary Recommendations: Pureed (NDD1) Additional Modifications to Solid Foods: Oral Medication Intake: Whole with Puree Please contact the pharmacy regarding appropriate crushable or liquid drug formulations that are available whenever modified delivery is recommended. Compensatory Strategies and Precautions to be Taken for Safe Swallow: Supervision While Eating and Drinking for Safe Swallow: Total Assistance (1:1) Foods to Avoid: Swallowing Recommended Treatments: Daily M-F Recommendation for Speech: Inpatient Speech Therapy Comment: Pt drowsy but arousable with movement, voicing and thermal stim. RN repositioned pt in more upright position. Pt trialed with cup sips of thins, tsps of puree and straw sips of thins. Pt observed to be impulsive with consecutive sips of thins by straw, resulting in cough. Cup sips of thins tolerated without overt s/s of aspiration. RN and MD consulted, recc NDD1 with thins, no straws, 1:1 assist with PO, meds in puree, INSURANCE UNDERWRITER SALES following. Frequency/Duration: Daily M-F Date Range for Service Req: Timeline to reassess: College Administrator Clinican/Clinical Fellow: No Supervisory Statement: I have reviewed and agree with the student/clinical fellow's documentation: N/A Speech Language Pathologist: Radha Banks M.S., CCC-INSURANCE UNDERWRITER SALES
--- NOTE | 2025-04-19 14:33 | MHC.CM.PN ---
PT HAS BEEN DOWNGRADED TO MED-TELE UNIT FOR FURTHER CARE. PT WILL NEED A P.T. EVAL TO DETERMINE DC DISPO. CM WILL CONTINUE TO FOLLOW FOR PLAN.
[2025-04-20 03:07] VITALS: BP 140/68; PULSE 86; RESP 17; TEMP 37; O2SAT 93
[2025-04-20 06:00] VITALS: BMI 38.2
[2025-04-20 07:09] VITALS: BP 125/64; PULSE 85; RESP 20; TEMP 36.3; O2SAT 94
[2025-04-20 07:17] LABS: MANUAL DIFF FLAG NO
[2025-04-20 07:22] LABS: Hematocrit 41.0 % (37.0-47.0); Hemoglobin 12.8 g/dl (12.0-16.0); Imm Gran Abs Auto 0.03 X10*3/uL (0.00-0.03); Imm Gran Pct Auto 0.3 % (0.0-0.4); Lymphocytes Absolute Auto 1.6 X10*3/uL (1.2-4.9); Mean Corpuscular HGB Conc 31.2 g/dl (31.0-35.0); Mean Corpuscular Hemoglobin 28.1 pg (27.0-33.0); Mean Corpuscular Volume 89.9 fL (80.0-98.0); NRBC Abs Auto 0.000 X10*3/uL (0.0-0.012); NRBC Pct Auto 0.0 /100WBC (0.0-0.2); Platelet Count 207 X10*3/uL (160-400); Red Blood Count 4.56 X10*6/uL (4.20-5.50); White Blood Count 9.4 X10*3/uL (4.8-10.8)
[2025-04-20 07:39] LABS: Albumin Level 4.5 g/dL (3.5-5.0); Anion Gap 17 (12-20); Blood Urea Nitrogen 60 mg/dL (9-16); Calcium 11.3 mg/dL (8.4-10.2); Carbon Dioxide 32 mmol/L (22-29); Chloride 94 mmol/L (96-108); Creatinine Clr Calc Pharmacy 26.5; Estimated Glomerular Filt Rate 34; Magnesium 1.8 mg/dL (1.6-2.6); Potassium 3.9 mmol/L (3.3-5.1); Sodium 139 mmol/L (135-145)
--- NOTE | 2025-04-20 11:15 | P.PNIM_ITS ---
Subjective Subjective Date of Service: 04/20/25 Interval History: no complaints Physical Exam 2 Exam: Exam: alert, disoriented, calm, pleasant, lungs clear Vital Signs: Vital Signs: Last Vital Signs Temp 97.4 F 04/20/25 07:09 Pulse 85 04/20/25 07:09 Resp 20 04/20/25 07:09 BP 125/64 04/20/25 07:09 Pulse Ox 94 04/20/25 07:09 O2 Del Method Room Air 04/20/25 07:09 O2 Flow Rate 1 04/19/25 11:55 FiO2 25 04/18/25 11:00 BMI result Body Mass Index 38.2 Objective Data Active Medications Albuterol/Ipratropium (Albuterol/Iprat 2.5/0.5mg 3 Ml Ampul.Neb) 3 ml INHALE RQ4H WHILE AWAKE PRN PRN Reason: Wheezing Stop: 05/18/25 14:40 Last Admin: 04/18/25 14:49 Dose: 3 ml Documented By: RACHEL Enoxaparin Sodium (Enoxaparin Sodium 40 Mg/0.4 Ml Syringe) 40 mg SUBCUT Q24H COUNTS INCLUDE 234 BEDS AT THE [facility] Last Admin: 04/20/25 05:55 Dose: 40 mg Documented By: DEX Levofloxacin (Levaquin) 750 mg in 150 mls @ 100 mls/hr IV Q48H COUNTS INCLUDE 234 BEDS AT THE [facility] Last Infusion: 04/19/25 14:34 Dose: Infused Documented By: BOGDAN Dextrose (D5w) 1,000 mls @ 50 mls/hr IVCONT .Q20H COUNTS INCLUDE 234 BEDS AT THE [facility] Last Infusion: 04/20/25 08:36 Dose: 0 mls/hr Documented By: MAGDALENA Sodium Chloride (Ns) 1,000 mls @ 75 mls/hr IVCONT .[id number] COUNTS INCLUDE 234 BEDS AT THE [facility] Stop: 04/20/25 21:19 Last Admin: 04/20/25 08:46 Dose: 75 mls/hr Documented By: MAGDALENA Levothyroxine Sodium (Levothyroxine Sodium 100 Mcg/5 Ml Vial) 37.5 mcg IVPUSH DAILY@0600 COUNTS INCLUDE 234 BEDS AT THE [facility] Last Admin: 04/20/25 05:55 Dose: 37.5 mcg Documented By: DEX Quetiapine Fumarate (Quetiapine Fumarate 50 Mg Tablet) 50 mg PO TID@0700,1200,1600 COUNTS INCLUDE 234 BEDS AT THE [facility] Sertraline HCl (Sertraline Hcl 25 Mg Tablet) 75 mg PO DAILY COUNTS INCLUDE 234 BEDS AT THE [facility] Last Admin: 04/20/25 08:35 Dose: 75 mg Documented By: MAGDALENA Sodium Chloride (0.9 % Sodium Chloride Flush 3 Ml Syringe) 3 ml IVFLUSH QSHIFT COUNTS INCLUDE 234 BEDS AT THE [facility] Last Admin: 04/20/25 08:35 Dose: Not Given Documented By: MAGDALENA Non-Admin Reason: IV Running Trazodone HCl (Trazodone Hcl 50 Mg Tablet) 12.5 mg PO DAILY@1600 COUNTS INCLUDE 234 BEDS AT THE [facility] Labs 04/20/25 06:50 04/20/25 06:50 Labs: Laboratory Results - last 24 hr 04/20/25 06:50 MCV 89.9 MCH 28.1 MCHC 31.2 RDW 12.4 Plt Count 207 MPV 11.9 Immature Gran % (Auto) 0.3 Neut % (Auto) 69.2 Lymph % (Auto) 17.2 L [place] % (Auto) 9.3 Eos % (Auto) 3.4 Baso % (Auto) 0.6 Lymph # (Auto) 1.6 [place] # (Auto) 0.9 Eos # (Auto) 0.3 Baso # (Auto) 0.1 Abs Immat Gran (auto) 0.03 Absolute Neuts (auto) 6.5 Absolute Nucleated RBC 0.000 Nucleated RBC % (auto) 0.0 Anion Gap 17 Estim Creat Clear Calc 26.5 Estimated GFR 34 Random Glucose 132 H Calcium 11.3 H Phosphorus 2.4 L Magnesium 1.8 Albumin 4.5 Assessment and Plan (1) HTN (hypertension): Status: Acute Plan 89F [facility] Alzheimer's dementia with behavioral agitation, recurrent UTIs, 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 Was admitted for recurrent urinary tract infection course was complicated by severe agitation requiring multiple doses of antipsychotics and benzodiazepines, on evening of 04/12/2025 RT and code blue was called after patient became agonal received 1 dose of epinephrine and [place] was achieved after 2 minutes, patient intubated and transferred to ICU, treated for pulmonary aspiration and CHF and extubated 04/18/2025, downgraded to medical floor 04/19/2025. Alzheimer's dementia with agitation and acute delirium/acute metabolic encephalopathy due to recurrent urinary tract infection Urine grew Morganella, treated with levofloxacin Agitation much improved Acute hypoxic respiratory failure due to above Resolved Acute kidney injury ? Due to over diuresis, 1 L normal saline, monitor DVT prophylaxis with Lovenox DNR reason for continued hospitalization: Dispo planning Quality Stroke Does the patient have a stroke diagnosis?: No VTE Prior VTE?: No VTE Risk Level:: Medical - moderate - high VTE Device Contraindication: N/A - Device Ordered VTE Drug Contraindication: N/A - Med Ordered
[2025-04-20 11:20] VITALS: BP 113/58; PULSE 88; RESP 18; TEMP 36.9; O2SAT 95
--- NOTE | 2025-04-20 11:57 | MHC.SL.SWA ---
Speech Pathologist Impression:Mild oropharyngeal dysphagia Risk of Aspiration Due to: Advanced dementia and age Dysphasia Diet Status: Recommend UPGRADE to NDD2 (ground/mechanical), THIN liquids with direct supervision/assist if needed. Liquid Consistency and Strategies for Safe Swallow: Liquid Intake Recommendation: Thin Liquid Intake Strategies: Solid Food Consistency: Dietary Recommendations: Ground/Mechanical (NDD2) Additional Modifications to Solid Foods: Oral Medication Intake: Whole with Puree Please contact the pharmacy regarding appropriate crushable or liquid drug formulations that are available whenever modified delivery is recommended. Compensatory Strategies and Precautions to be Taken for Safe Swallow: Sitting Upright (90 deg) Small Bites and Sips Alternate Liquids/Solids Rate of Ingestion Change Supervision While Eating and Drinking for Safe Swallow: Direct Supervision (1:1) Foods to Avoid: Swallowing Recommended Treatments: Compens. Strategy Educat. Recommendation for Speech: Inpatient Speech Therapy Comment: Patient seen for dysphagia treatment. Patient met in room, pleasantly confused. Patient given pudding with small odilia cracker pieces and medium sized odilia cracker pieces as trials for possible upgrade. Patient with throat clears x3; no overt s/sx of penetration/aspiration. Patient with timely mastication, adequate cohesion and clearance of odilia crackers. Per RN, minimal PO intake for breakfast this date, tolerated taking medications. Recommend UPGRADE to NDD2 (ground/mechanical), THIN liquids with direct supervision/assist if needed. Patient with known advanced dementia; fluctuating confusion and behaviors requiring supervision. Diet upgraded in [place]panse. MD, RN, and RD notified of recommendations via secure chat. CLINICAL TRIAL SPECIALIST to continue to follow. Frequency/Duration: Daily M-F Date Range for Service Req: Timeline to reassess: Fitter / Welder Clinican/Clinical Fellow: No Supervisory Statement: I have reviewed and agree with the student/clinical fellow's documentation: N/A Speech Language Pathologist: Noemi García M.A., CCC-CLINICAL TRIAL SPECIALIST
[2025-04-20 15:13] VITALS: BP 115/66; PULSE 83; RESP 18; TEMP 36.8; O2SAT 94
[2025-04-20] MEDS: 0.9 % Sodium Chloride Flush 3 ML SYRINGE IVFLUSH ×2 (17:13→20:26)
[2025-04-20 19:20] VITALS: BP 111/57; PULSE 86; RESP 18; TEMP 36.7; O2SAT 92
[2025-04-21] VITALS (7 sets, daily range): BP systolic 90–135; BP diastolic 53–60; PULSE 76–88; RESP 16–18; TEMP 36–37.1; O2SAT 92–97; BMI 38.2
[2025-04-21] MEDS: 0.9 % Sodium Chloride Flush 3 ML SYRINGE IVFLUSH (08:42)
[2025-04-21 08:52] LABS: Hematocrit 35.7 % (37.0-47.0); Hemoglobin 11.5 g/dl (12.0-16.0); Mean Corpuscular HGB Conc 32.2 g/dl (31.0-35.0); Mean Corpuscular Hemoglobin 28.9 pg (27.0-33.0); Mean Corpuscular Volume 89.7 fL (80.0-98.0); NRBC Abs Auto 0.000 X10*3/uL (0.0-0.012); NRBC Pct Auto 0.0 /100WBC (0.0-0.2); Platelet Count 196 X10*3/uL (160-400); Red Blood Count 3.98 X10*6/uL (4.20-5.50); White Blood Count 8.1 X10*3/uL (4.8-10.8)
[2025-04-21 09:20] LABS: Anion Gap 14 (12-20); Calcium 10.8 mg/dL (8.4-10.2); Carbon Dioxide 31 mmol/L (22-29); Chloride 97 mmol/L (96-108); Potassium 3.8 mmol/L (3.3-5.1); Sodium 138 mmol/L (135-145)
[2025-04-21 09:31] LABS: Blood Urea Nitrogen 78 mg/dL (9-16); Creatinine Clr Calc Pharmacy 16.4; Estimated Glomerular Filt Rate 20
--- NOTE | 2025-04-21 09:47 | P.PNIM_ITS ---
Subjective Subjective Date of Service: 04/21/25 Interval History: no complaints Physical Exam 2 Exam: Exam: alert, disoriented, calm, pleasant, lungs clear Vital Signs: Vital Signs: Last Vital Signs Temp 98.1 F 04/21/25 08:00 Pulse 78 04/21/25 08:00 Resp 18 04/21/25 08:00 BP 108/53 L 04/21/25 08:00 Pulse Ox 92 04/21/25 08:00 O2 Del Method Room Air 04/21/25 08:00 O2 Flow Rate 1 04/19/25 11:55 FiO2 25 04/18/25 11:00 BMI result Body Mass Index 38.2 Objective Data Active Medications Albuterol/Ipratropium (Albuterol/Iprat 2.5/0.5mg 3 Ml Ampul.Neb) 3 ml INHALE RQ4H WHILE AWAKE PRN PRN Reason: Wheezing Stop: 05/18/25 14:40 Last Admin: 04/18/25 14:49 Dose: 3 ml Documented By: RACHEL Enoxaparin Sodium (Enoxaparin Sodium 30 Mg/0.3 Ml Syringe) 30 mg SUBCUT Q24H [facility] Last Admin: 04/21/25 06:44 Dose: 30 mg Documented By: TIMOTHY Levofloxacin (Levofloxacin 750 Mg Tablet) 750 mg PO Q48H [facility] Levothyroxine Sodium (Levothyroxine Sodium 100 Mcg/5 Ml Vial) 37.5 mcg IVPUSH DAILY@0600 [facility] Last Admin: 04/21/25 06:44 Dose: 37.5 mcg Documented By: TIMOTHY Quetiapine Fumarate (Quetiapine Fumarate 50 Mg Tablet) 50 mg PO TID@0700,1200,1600 [facility] Last Admin: 04/21/25 08:42 Dose: 50 mg Documented By: MAGDALENA Sertraline HCl (Sertraline Hcl 25 Mg Tablet) 75 mg PO DAILY [facility] Last Admin: 04/21/25 08:42 Dose: 75 mg Documented By: MAGDALENA Sodium Chloride (0.9 % Sodium Chloride Flush 3 Ml Syringe) 3 ml IVFLUSH QSHIFT [facility] Last Admin: 04/21/25 08:42 Dose: 3 ml Documented By: MAGDALENA Trazodone HCl (Trazodone Hcl 50 Mg Tablet) 12.5 mg PO DAILY@1600 [facility] Last Admin: 04/20/25 17:12 Dose: 12.5 mg Documented By: MAGDALENA Labs 04/21/25 08:21 04/21/25 08:20 Labs: Laboratory Results - last 24 hr 04/21/25 04/21/25 08:20 08:21 MCV 89.7 MCH 28.9 MCHC 32.2 RDW 12.6 Plt Count 196 MPV 12.2 Absolute Nucleated RBC 0.000 Nucleated RBC % (auto) 0.0 Anion Gap 14 Estim Creat Clear Calc 16.4 Estimated GFR 20 Random Glucose 105 Calcium 10.8 H Assessment and Plan (1) HTN (hypertension): Status: Acute Plan 89F [facility] Alzheimer's dementia with behavioral agitation, recurrent UTIs, 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 Was admitted for recurrent urinary tract infection course was complicated by severe agitation requiring multiple doses of antipsychotics and benzodiazepines, on evening of 04/12/2025 RT and code blue was called after patient became agonal received 1 dose of epinephrine and [place] was achieved after 2 minutes, patient intubated and transferred to ICU, treated for pulmonary aspiration and CHF and extubated 04/18/2025, downgraded to medical floor 04/19/2025. Alzheimer's dementia with agitation and acute delirium/acute metabolic encephalopathy due to recurrent urinary tract infection Urine grew Morganella, treated with levofloxacin Agitation much improved GISSELL did not improved with ivf check renal us, nephro eval deconditioning pt eval Acute hypoxic respiratory failure due to above Resolved DVT prophylaxis with Lovenox DNR reason for continued hospitalization: gissell Quality Stroke Does the patient have a stroke diagnosis?: No VTE Prior VTE?: No VTE Risk Level:: Medical - moderate - high VTE Device Contraindication: N/A - Device Ordered VTE Drug Contraindication: N/A - Med Ordered
--- NOTE | 2025-04-21 11:43 | HO.WOUND ---
Wound Consult: follow up 89yr old?female admitted to [facility] on 04/10/25 16:58 - See progress notes and H&P for detailed history.? Wound follow up today for Right Heel.? Heels elevated on pillows, SIPP in place. All preventative measures should remain in place in addition to treatment. Right Heel 04/21/25 Etiology: ??Stage 1 Pressure Injury Measurements: 0.2cm x 0.3cm Wound Bed: intact red pink nonblanchable small area Drainage / Odor: None Edges: ? attached Sharon wound: pink blanchable tissue ? No Induration, Fluctuance or Warmth noted Pain: intubated Goals of Treatment: ? Off Load Pressure Left heel noted for pink intact and blanchable skin Recommendations: 1. Turn and Reposition every 2 hours and as needed for patient comfort.? Use pillows or wedges to support off loading positions. 2. Off Load all bony prominences with use of pillows and heel boots if needed.? Apply Preventative foams where needed. ? 3. Monitor for incontinence and moisture control, use barrier creams when needed for prevention and treatment. 4. Provide adequate and supplemental nutrition.? 5. Continue low air loss mattress. 6. When applicable maintain blood glucose levels per Providers order. Bilateral Heels? - Elevate heels off of bed surface with pillows.? Float heels off of pillows.? Apply skin prep allow to dry.? Apply heel foam dressings, peel back and assess Q shift and change every 3 days and PRN. May use in combination with Heel boot protectors. Re-consult wound care Nurse for wound deterioration or wound changes.
--- NOTE | 2025-04-21 12:07 | MHC.CLN ---
F/U PT TRANSFERRED TO MEDICAL FLOOR PO INTAKE 25% X2 MEALS DIET RX: ADVANCED TO GROUND RECOMMEND ADDING ENSURE BID TO INCREASE KCALS SUPP TO PROVIDE 700KCALS, 40G PROTEIN MONITOR PO INTAKE AND ENCOURAGE SUPPLEMENTS
--- NOTE | 2025-04-21 13:39 | MHC.CM.PN ---
Patient is not medically clear to discharge today. She continues with GISSELL. Patient will need a PT eval to assist with dispo. DP pending PT eval STR via BLS vs Home.
--- NOTE | 2025-04-21 16:48 | PM.CNNEP ---
History of Present Illness Reason for Consult Consult date: 04/21/25 Chief Complaint Chief complaint: AMS, GISSELL, UTI History of Present Illness Narrative: 89F with Alzheimer's dementia with behavioral agitation, recurrent UTIs, 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 Was admitted for recurrent urinary tract infection course was complicated by severe agitation requiring multiple doses of antipsychotics and benzodiazepines, on evening of 04/12/2025 RT and code blue was called after patient became agonal received 1 dose of epinephrine and Mariela was achieved after 2 minutes, patient intubated and transferred to ICU, treated for pulmonary aspiration and CHF and extubated 04/18/2025, downgraded to medical floor 04/19/2025.Urine grew Morganella, treated with levofloxacin.She had developed GISSELL. Nephrology has been consulted to assist in her clinical care during her current hospital stayl Review of Systems Review of Systems Yes all other systems are reviewed and are negative PMFSH Past Medical History Medical History Dementia with agitation Aggressive behavior Hiatal hernia History of DVT (deep vein thrombosis) HTN (hypertension) Hypothyroid Recurrent UTI HLD (hyperlipidemia) Dementia Surgical History Surgical History History of ankle surgery H/O colonoscopy Social History Social History Household Members: Unknown / Unable to assess Housing: Unknown / Unable to assess Housing Other:: [facility] Are you a primary personal carer to a significant other at home: No Do you presently have visiting nurse or other home services: Yes Alcohol intake: former Comment: 1:1 sitter Patient Tobacco Use Status: Former Tobacco user Tobacco use type: Cigarette e-Cigarette/Vaping Use: Former Use Advance Directives Date on File: 11/21/24 service: No Meds Allergies Allergy/AdvReac Type Severity Reaction Status Date / Time No Known Allergies Allergy Verified 04/10/25 11:56 Active Medications: Current Medications Albuterol/Ipratropium (Albuterol/Iprat 2.5/0.5mg 3 Ml Ampul.Neb) 3 ml INHALE RQ4H WHILE AWAKE PRN PRN Reason: Wheezing Stop: 05/18/25 14:40 Last Admin: 04/18/25 14:49 Dose: 3 ml Enoxaparin Sodium (Enoxaparin Sodium 30 Mg/0.3 Ml Syringe) 30 mg SUBCUT Q24H [facility] Last Admin: 04/21/25 06:44 Dose: 30 mg Levofloxacin (Levofloxacin 750 Mg Tablet) 750 mg PO Q48H [facility] Last Admin: 04/21/25 12:30 Dose: 750 mg Levothyroxine Sodium (Levothyroxine Sodium 100 Mcg/5 Ml Vial) 37.5 mcg IVPUSH DAILY@0600 [facility] Last Admin: 04/21/25 06:44 Dose: 37.5 mcg Sertraline HCl (Sertraline Hcl 25 Mg Tablet) 75 mg PO DAILY [facility] Last Admin: 04/21/25 08:42 Dose: 75 mg Sodium Chloride (0.9 % Sodium Chloride Flush 3 Ml Syringe) 3 ml IVFLUSH QSHIFT [facility] Last Admin: 04/21/25 16:08 Dose: Not Given Trazodone HCl (Trazodone Hcl 50 Mg Tablet) 12.5 mg PO DAILY@1600 [facility] Last Admin: 04/21/25 16:09 Dose: Not Given Home Medications ?Medication ?Instructions ?Recorded ?Confirmed ?Last Taken ?Type ascorbic acid (vitamin C) 250 mg 250 mg PO DAILY 11/13/24 04/10/25 Unknown History tablet (Vitamin C) aspirin 81 mg tablet,delayed 81 mg PO DAILY 11/13/24 04/10/25 11/12/24 History release atorvastatin 40 mg tablet 40 mg PO BEDTIME 11/13/24 04/10/25 Unknown History cholecalciferol (vitamin D3) 50 50 mcg PO DAILY 11/13/24 04/10/25 Unknown History mcg (2,000 unit) capsule (Vitamin D3) levothyroxine 50 mcg tablet 50 mcg PO DAILY@0600 11/13/24 04/10/25 Unknown History lisinopril 10 mg tablet 15 mg PO DAILY 11/13/24 04/10/25 Unknown History sertraline 50 mg tablet 75 mg PO DAILY 11/13/24 04/10/25 Unknown History magnesium hydroxide 400 mg/5 mL 30 ml PO DAILY PRN Constipation 11/14/24 04/10/25 Unknown History oral suspension (Milk of Magnesia) melatonin 3 mg tablet 6 mg PO BEDTIME 11/14/24 04/10/25 Unknown History sennosides 8.6 mg tablet (senna) 8.6 mg PO BID PRN Constipation 11/14/24 04/10/25 Unknown History ferrous gluconate 324 mg (38 mg 324 mg PO DAILY 12/13/24 04/10/25 Unknown History iron) tablet quetiapine 50 mg tablet 50 mg PO TID@0700,1200,1600 12/13/24 04/10/25 Unknown History trazodone 50 mg tablet 12.5 mg PO DAILY@1600 12/13/24 04/10/25 Unknown History Lactobacillus acidophilus 500 500 mmu cells PO DAILY 02/09/25 04/10/25 Unknown History million cell capsule cephalexin 250 mg tablet 250 mg PO MOWEFR@0900 02/09/25 04/10/25 Unknown History cholecalciferol (vitamin D3) 1,250 1,250 mcg PO QMONTH 02/09/25 04/10/25 Unknown History mcg (50,000 unit) tablet loperamide 2 mg tablet 2 mg PO Q6H PRN Loose Stool 02/09/25 04/10/25 Unknown History omeprazole 20 mg capsule,delayed 20 mg PO BID@0630,1630 02/09/25 04/10/25 Unknown History release cranberry extract 250 mg capsule 250 mg PO DAILY 04/10/25 04/10/25 Unknown History rivaroxaban 10 mg tablet (Xarelto) 10 mg PO DAILY 04/10/25 04/10/25 Unknown History Physical Exam Vital Signs: Last Vital Signs Temp 98.5 F 04/21/25 15:46 Pulse 83 04/21/25 15:46 Resp 16 04/21/25 15:46 BP 132/59 L 04/21/25 15:46 Pulse Ox 92 04/21/25 15:46 O2 Del Method Room Air 04/21/25 15:46 O2 Flow Rate 1 04/19/25 11:55 FiO2 25 04/18/25 11:00 BMI result Body Mass Index 38.2 Const General: no acute distress Eyes EOM: EOMs intact bilaterally Resp Auscultation: diminished lung sounds Cardio Rate: regular rate GI Palpation (GI): Soft to palpation Neuro General: moves all extremities Results Lab Results 04/21/25 08:21 04/21/25 08:20 Lab results: Chemistry 04/18/25 04/18/25 04/19/25 15:51 19:55 05:14 Sodium 150 H 150 H 146 H Potassium 4.7 D 4.5 4.1 Carbon Dioxide 33 H 35 H 34 H BUN 66 H 65 H 63 H Creatinine 1.11 1.17 1.13 Calcium 11.3 H D 11.4 H 11.6 H Phosphorus 3.2 3.2 04/20/25 04/21/25 06:50 08:20 Sodium 139 138 Potassium 3.9 3.8 Carbon Dioxide 32 H 31 H BUN 60 H 78 H Creatinine 1.45 H 2.34 H Calcium 11.3 H 10.8 H Phosphorus 2.4 L Hematology 04/19/25 04/20/25 04/21/25 05:14 06:50 08:21 WBC 8.3 9.4 8.1 Hgb 10.9 L D 12.8 11.5 L Plt Count 183 D 207 196 Assessment and Plan (1) GISSELL (acute kidney injury): Status: Acute Plan IGSSELL due to tubular injury( multifactorial- sepsis/hypotension) Serum creatinine not plateaued; UO OK No reason to suspect AIN/GN; No ACEI/ARB/NSAID's/Diuretics Continue rest of current supportive management; Labs AM Procedures Date of Service Date of Service: 04/21/25
--- NOTE | 2025-04-21 17:01 | MHC.SLORD ---
Speech Language Pathology Order Status: APPEALS REFEREE attempted to see patient this date. Patient arousable to tactile and verbal stimulation, but immediately closing eyes and going back to sleep. Patient too lethargic for PO intake; RN made aware. Recommend continuing with current diet. APPEALS REFEREE to continue to follow.
[2025-04-22] VITALS (7 sets, daily range): BP systolic 106–140; BP diastolic 53–65; PULSE 79–99; RESP 14–20; TEMP 36.1–36.8; O2SAT 92–96; BMI 31.1
[2025-04-22] MEDS: 0.9 % Sodium Chloride Flush 3 ML SYRINGE IVFLUSH ×4 (06:01→20:31)
[2025-04-22 08:08] LABS: Hematocrit 35.9 % (37.0-47.0); Hemoglobin 11.5 g/dl (12.0-16.0); Mean Corpuscular HGB Conc 32.0 g/dl (31.0-35.0); Mean Corpuscular Hemoglobin 28.8 pg (27.0-33.0); Mean Corpuscular Volume 89.8 fL (80.0-98.0); NRBC Abs Auto 0.000 X10*3/uL (0.0-0.012); NRBC Pct Auto 0.0 /100WBC (0.0-0.2); Platelet Count 220 X10*3/uL (160-400); Red Blood Count 4.00 X10*6/uL (4.20-5.50); White Blood Count 6.6 X10*3/uL (4.8-10.8)
[2025-04-22 08:23] LABS: Anion Gap 16 (12-20); Blood Urea Nitrogen 73 mg/dL (9-16); Calcium 10.4 mg/dL (8.4-10.2); Carbon Dioxide 28 mmol/L (22-29); Chloride 102 mmol/L (96-108); Creatinine Clr Calc Pharmacy 16.7; Estimated Glomerular Filt Rate 23; Magnesium 1.9 mg/dL (1.6-2.6); Potassium 4.1 mmol/L (3.3-5.1); Sodium 142 mmol/L (135-145)
--- NOTE | 2025-04-22 11:19 | HO.PM.IMPN ---
Subjective Subjective Date of Service: 04/22/25 Interval History: no complaints Physical Exam Vital Signs: Vital Signs: Last Vital Signs Temp 98.0 F 04/22/25 07:54 Pulse 79 04/22/25 07:54 Resp 18 04/22/25 07:54 BP 106/56 L 04/22/25 07:54 Pulse Ox 93 04/22/25 07:54 O2 Del Method Room Air 04/22/25 07:54 O2 Flow Rate 1 04/19/25 11:55 FiO2 25 04/18/25 11:00 BMI result Body Mass Index 31.1 Const: General: no acute distress Eyes: EOM: EOMs intact bilaterally Resp: Auscultation: diminished lung sounds Cardio: Rate: regular rate GI: Palpation (GI): Soft to palpation Neuro: General: moves all extremities Objective Data Active Medications Albuterol/Ipratropium (Albuterol/Iprat 2.5/0.5mg 3 Ml Ampul.Neb) 3 ml INHALE RQ4H WHILE AWAKE PRN PRN Reason: Wheezing Stop: 05/18/25 14:40 Last Admin: 04/18/25 14:49 Dose: 3 ml Documented By: RACHEL Enoxaparin Sodium (Enoxaparin Sodium 30 Mg/0.3 Ml Syringe) 30 mg SUBCUT Q24H [facility] Last Admin: 04/22/25 05:58 Dose: 30 mg Documented By: DEX Levofloxacin (Levofloxacin 750 Mg Tablet) 750 mg PO Q48H [facility] Last Admin: 04/21/25 12:30 Dose: 750 mg Documented By: MAGDALENA Levothyroxine Sodium (Levothyroxine Sodium 100 Mcg/5 Ml Vial) 37.5 mcg IVPUSH DAILY@0600 [facility] Last Admin: 04/22/25 05:57 Dose: 37.5 mcg Documented By: DEX Sertraline HCl (Sertraline Hcl 25 Mg Tablet) 75 mg PO DAILY [facility] Last Admin: 04/22/25 07:44 Dose: 75 mg Documented By: STEPHANIA Sodium Chloride (0.9 % Sodium Chloride Flush 3 Ml Syringe) 3 ml IVFLUSH QSHIFT [facility] Last Admin: 04/22/25 07:45 Dose: 3 ml Documented By: STEPHANIA Trazodone HCl (Trazodone Hcl 50 Mg Tablet) 12.5 mg PO DAILY@1600 [facility] Last Admin: 04/21/25 16:09 Dose: Not Given Documented By: MAGDALENA Non-Admin Reason: lethargix Labs 04/22/25 07:53 04/22/25 07:53 Labs: Laboratory Results - last 24 hr 04/22/25 07:53 MCV 89.8 MCH 28.8 MCHC 32.0 RDW 12.5 Plt Count 220 MPV 11.9 Absolute Nucleated RBC 0.000 Nucleated RBC % (auto) 0.0 Anion Gap 16 Estim Creat Clear Calc 16.7 Estimated GFR 23 Random Glucose 104 Calcium 10.4 H Magnesium 1.9 Assessment and Plan (1) HTN (hypertension): Status: Acute Plan 89F PMH Alzheimer's dementia with behavioral agitation, recurrent UTIs, 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 Was admitted for recurrent urinary tract infection course was complicated by severe agitation requiring multiple doses of antipsychotics and benzodiazepines, on evening of 04/12/2025 RT and code blue was called after patient became agonal received 1 dose of epinephrine and Mariela was achieved after 2 minutes, patient intubated and transferred to ICU, treated for pulmonary aspiration and CHF and extubated 04/18/2025, downgraded to medical floor 04/19/2025. Alzheimer's dementia with agitation and acute delirium/acute metabolic encephalopathy due to recurrent urinary tract infection Urine grew Morganella, treated with levofloxacin Agitation much improved GISSELL Acute tubular necrosis due to above check renal us, nephro follwoing, montior deconditioning pt eval Acute hypoxic respiratory failure due to above Resolved DVT prophylaxis with Lovenox DNR reason for continued hospitalization: gissell Quality Stroke Does the patient have a stroke diagnosis?: No VTE Prior VTE?: No VTE Risk Level:: Medical - moderate - high VTE Device Contraindication: N/A - Device Ordered VTE Drug Contraindication: N/A - Med Ordered
[2025-04-23] VITALS (7 sets, daily range): BP systolic 126–158; BP diastolic 58–81; PULSE 74–107; RESP 16–19; TEMP 36.6–37.2; O2SAT 91–96; BMI 33.4
[2025-04-23 06:44] LABS: Hematocrit 40.9 % (37.0-47.0); Hemoglobin 12.8 g/dl (12.0-16.0); Mean Corpuscular HGB Conc 31.3 g/dl (31.0-35.0); Mean Corpuscular Hemoglobin 28.6 pg (27.0-33.0); Mean Corpuscular Volume 91.3 fL (80.0-98.0); NRBC Abs Auto 0.000 X10*3/uL (0.0-0.012); NRBC Pct Auto 0.0 /100WBC (0.0-0.2); Platelet Count 218 X10*3/uL (160-400); Red Blood Count 4.48 X10*6/uL (4.20-5.50); White Blood Count 7.9 X10*3/uL (4.8-10.8)
[2025-04-23 06:55] LABS: Anion Gap 15 (12-20); Blood Urea Nitrogen 56 mg/dL (9-16); Calcium 11.0 mg/dL (8.4-10.2); Carbon Dioxide 26 mmol/L (22-29); Chloride 106 mmol/L (96-108); Creatinine Clr Calc Pharmacy 23.2; Estimated Glomerular Filt Rate 32; Potassium 4.4 mmol/L (3.3-5.1); Sodium 143 mmol/L (135-145)
[2025-04-23] MEDS: 0.9 % Sodium Chloride Flush 3 ML SYRINGE IVFLUSH ×2 (09:39→17:34)
--- NOTE | 2025-04-23 09:58 | P.PNIM_ITS ---
Subjective Subjective Date of Service: 04/23/25 Interval History: no complaints Physical Exam 2 Vital Signs: Vital Signs: Last Vital Signs Temp 97.9 F 04/23/25 07:43 Pulse 77 04/23/25 07:43 Resp 16 04/23/25 07:43 BP 148/65 H 04/23/25 07:43 Pulse Ox 96 04/23/25 07:43 O2 Del Method Room Air 04/23/25 07:43 O2 Flow Rate 1 04/19/25 11:55 FiO2 25 04/18/25 11:00 BMI result Body Mass Index 33.4 Const: General: no acute distress Eyes: EOM: EOMs intact bilaterally Resp: Auscultation: diminished lung sounds Cardio: Rate: regular rate GI: Palpation (GI): Soft to palpation Neuro: General: moves all extremities Objective Data Active Medications Albuterol/Ipratropium (Albuterol/Iprat 2.5/0.5mg 3 Ml Ampul.Neb) 3 ml INHALE RQ4H WHILE AWAKE PRN PRN Reason: Wheezing Stop: 05/18/25 14:40 Last Admin: 04/18/25 14:49 Dose: 3 ml Documented By: RACHEL Enoxaparin Sodium (Enoxaparin Sodium 30 Mg/0.3 Ml Syringe) 30 mg SUBCUT Q24H [facility] Last Admin: 04/23/25 06:04 Dose: 30 mg Documented By: BETH Levofloxacin (Levofloxacin 750 Mg Tablet) 750 mg PO Q48H [facility] Last Admin: 04/21/25 12:30 Dose: 750 mg Documented By: MAGDALENA Levothyroxine Sodium (Levothyroxine Sodium 100 Mcg/5 Ml Vial) 37.5 mcg IVPUSH DAILY@0600 [facility] Last Admin: 04/23/25 05:04 Dose: 37.5 mcg Documented By: BETH Sertraline HCl (Sertraline Hcl 25 Mg Tablet) 75 mg PO DAILY [facility] Last Admin: 04/23/25 09:38 Dose: 75 mg Documented By: GEOVANNI Sodium Chloride (0.9 % Sodium Chloride Flush 3 Ml Syringe) 3 ml IVFLUSH QSHIFT [facility] Last Admin: 04/23/25 09:39 Dose: 3 ml Documented By: GEOVANNI Trazodone HCl (Trazodone Hcl 50 Mg Tablet) 12.5 mg PO DAILY@1600 [facility] Last Admin: 04/22/25 16:28 Dose: 12.5 mg Documented By: STEPHANIA Labs 04/23/25 06:28 04/23/25 06:28 Labs: Laboratory Results - last 24 hr 04/23/25 06:28 MCV 91.3 MCH 28.6 MCHC 31.3 RDW 12.4 Plt Count 218 MPV 12.1 Absolute Nucleated RBC 0.000 Nucleated RBC % (auto) 0.0 Anion Gap 15 Estim Creat Clear Calc 23.2 Estimated GFR 32 Random Glucose 110 Calcium 11.0 H Assessment and Plan (1) HTN (hypertension): Status: Acute Plan 89F PMH Alzheimer's dementia with behavioral agitation, recurrent UTIs, 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 Was admitted for recurrent urinary tract infection course was complicated by severe agitation requiring multiple doses of antipsychotics and benzodiazepines, on evening of 04/12/2025 RT and code blue was called after patient became agonal received 1 dose of epinephrine and [place] was achieved after 2 minutes, patient intubated and transferred to ICU, treated for pulmonary aspiration and CHF and extubated 04/18/2025, downgraded to medical floor 04/19/2025. Alzheimer's dementia with agitation and acute delirium/acute metabolic encephalopathy due to recurrent urinary tract infection Urine grew Morganella, treated with levofloxacin Agitation much improved - back at baseline - pleasant, conversational but with poor insight GISSELL Acute tubular necrosis due to above improving deconditioning pt eval - rec rehab Acute hypoxic respiratory failure due to above Resolved DVT prophylaxis with Lovenox DNR reason for continued hospitalization: dispo planning Quality Stroke Does the patient have a stroke diagnosis?: No VTE Prior VTE?: No VTE Risk Level:: Medical - moderate - high VTE Device Contraindication: N/A - Device Ordered VTE Drug Contraindication: N/A - Med Ordered
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
[2025-04-24] VITALS: BP 130/63; PULSE 97; RESP 16; TEMP 36.8; O2SAT 93
[2025-04-24 04:00] VITALS: BP 124/63; PULSE 86; RESP 16; TEMP 37.1; O2SAT 93
[2025-04-24 05:58] VITALS: BMI 32.8
[2025-04-24 08:01] VITALS: BP 154/74; PULSE 87; RESP 12; TEMP 37.1; O2SAT 95
--- NOTE | 2025-04-24 08:17 | MHC.CM.PN ---
PT MEDICALLY READY TO TRANSFER TO [facility], JACKIE MET WITH FAMILY AT BEDSIDE YESTERDAY AFTERNOON THEY REQUEST PT NOT GO TO [facility] THEY UNDERSTAND THEY WILL BE CONTACTED WITH BED OFFERS THEY REPORT THEY WOULD PREFER PT GO FURTHER AWAY IF THE SNF IS BETTER
[2025-04-24] MEDS: 0.9 % Sodium Chloride Flush 3 ML SYRINGE IVFLUSH (08:48)
--- NOTE | 2025-04-24 10:41 | P.PNNP_ITS ---
Subjective Subjective Date of Service: 04/26/25 Interval history: no new complaints Creatinine trending down Physical Exam 2 Vital Signs: Vital Signs: Last Vital Signs Temp 98.8 F 04/24/25 08:01 Pulse 87 04/24/25 08:01 Resp 12 04/24/25 08:01 BP 154/74 H 04/24/25 08:01 Pulse Ox 95 04/24/25 08:01 O2 Del Method Room Air 04/24/25 08:01 O2 Flow Rate 1 04/19/25 11:55 FiO2 25 04/18/25 11:00 BMI result Body Mass Index 32.8 General: Elderly lady in mild acute distress, she is chronically ill appearing and tired appearing Nutritional Appearance: well nourished and overweight Eyes: appearance normal, both eyes and all related structures; Alignment and Position: alignment normal and position normal Neck: No lymphadenopathy, no thyromegaly Resp: bilateral air entry equal, occasional added sounds present Cardio: Regular rate, regular rhythm; Heart sounds: S1 normal heart sound present and S2 normal heart sound present GI: soft, nontender, no guarding, no hepatosplenomegaly : bladder normal to inspection, bladder normal to palpation, no renal angle tenderness Skin: no rashes or lesions noted and elasticity normal Neuro: oriented to person, oriented to place, oriented to time and moves all extremities Objective Data Labs 04/23/25 06:28 04/24/25 11:07 Microbiology Microbiology Results: Microbiology 04/12/25 22:06 Blood - Venous Blood Culture - Final No growth after 5 days. 04/12/25 22:06 Blood - Venous Blood Culture - Final No growth after 5 days. 04/10/25 15:25 Urine clean catch Urine Culture - Final Morganella morganii [facility] Procedures Date of Service Date of Service: 04/26/25 Assessment & Plan Assessment and plan (1) GISSELL (acute kidney injury): Status: Acute (2) Hypercalcemia: Status: Acute Plan Acute kidney injury: Possibly secondary to acute tubular necrosis in the setting of urinary tract infection Currently creatinine trending down, down to 1.54 yesterday Renal ultrasound showed bilateral cortical thinning but no obstruction. Kidney sizes 9.0 and 8.2 on the right and left respectively. Urinalysis showing nitrate positive greater than 50 WBCs due to UTI. Trace protein and no blood Continue antibiotics, avoid nephrotoxic medications. Maintain euvolemia Hypercalcemia: Calcium increased to 11.0 We will get PTH and vitamin-D levels will get albumin levels to look for correction. We will follow her up in Nephrology Clinic Time Spent With Patient Time: Total time managing care of this patient today ____ minutes. Progress Note: Quality Stroke Does the patient have a stroke diagnosis?: No
--- NOTE | 2025-04-24 11:14 | MHC.CM.PN ---
Addendum entered by Lucía Sandra 04/24/25 11:56: BLS TRANSPORT BOOKED WITH [facility] FOR 1600 HOURS Addendum entered by Lucía Sandra 04/24/25 11:53: JACKIE SPOKE TO PTS SON/HCP, PAPITO, HE HAS ACCEPTED THE BED OFFER AT [facility] AND UNDERSTANDS SHE WILL BE TRANSFERRED VIA BLS TODAY HE IS ALSO AWARE [facility] WILL CONTACT HIM DIRECTLY FOR CONSENTS Original Note: DISCHARGE ORDER IN FOR PT, BED OFFER AT [facility] RECEIVED CM ATTEMPTED TO CONTACT THE HCP, PAPITO, AT BOTH NUMBERS ON FILE [phone] & [phone], VM MESSAGE LEFT REQUESTING A RETURN CALL PT WILL DC TO STR TODAY VIA BLS
[2025-04-24 11:29] LABS: Alanine Aminotransferase 13 U/L (0-31); Albumin Level 4.1 g/dL (3.5-5.0); Alkaline Phosphatase 84 U/L (39-117); Anion Gap 14 (12-20); Aspartate Amino Transferase 17 U/L (5-31); Blood Urea Nitrogen 51 mg/dL (9-16); Calcium 11.5 mg/dL (8.4-10.2); Carbon Dioxide 24 mmol/L (22-29); Chloride 108 mmol/L (96-108); Creatinine Clr Calc Pharmacy 24.4; Estimated Glomerular Filt Rate 34; Potassium 4.7 mmol/L (3.3-5.1); Sodium 141 mmol/L (135-145); Total Protein 6.8 g/dL (6.5-8.0)
[2025-04-24 11:33] LABS: Parathyroid Hormone Intact 160.1 pg/mL (8.7-77.1)
--- NOTE | 2025-04-24 11:52 | HO.PM.IMPN ---
Subjective Subjective Date of Service: 04/24/25 Interval History: no complaints Physical Exam Vital Signs: Vital Signs: Last Vital Signs Temp 98.8 F 04/24/25 08:01 Pulse 87 04/24/25 08:01 Resp 12 04/24/25 08:01 BP 154/74 H 04/24/25 08:01 Pulse Ox 95 04/24/25 08:01 O2 Del Method Room Air 04/24/25 08:01 O2 Flow Rate 1 04/19/25 11:55 FiO2 25 04/18/25 11:00 BMI result Body Mass Index 32.8 General: Elderly lady in mild acute distress, she is chronically ill appearing and tired appearing Nutritional Appearance: well nourished and overweight Eyes: appearance normal, both eyes and all related structures; Alignment and Position: alignment normal and position normal Neck: No lymphadenopathy, no thyromegaly Resp: bilateral air entry equal, occasional added sounds present Cardio: Regular rate, regular rhythm; Heart sounds: S1 normal heart sound present and S2 normal heart sound present GI: soft, nontender, no guarding, no hepatosplenomegaly : bladder normal to inspection, bladder normal to palpation, no renal angle tenderness Skin: no rashes or lesions noted and elasticity normal Neuro: oriented to person, oriented to place, oriented to time and moves all extremities Objective Data Active Medications Albuterol/Ipratropium (Albuterol/Iprat 2.5/0.5mg 3 Ml Ampul.Neb) 3 ml INHALE RQ4H WHILE AWAKE PRN PRN Reason: Wheezing Stop: 05/18/25 14:40 Last Admin: 04/18/25 14:49 Dose: 3 ml Documented By: RACHEL Enoxaparin Sodium (Enoxaparin Sodium 30 Mg/0.3 Ml Syringe) 30 mg SUBCUT Q24H [facility] Last Admin: 04/24/25 06:07 Dose: 30 mg Documented By: KATH Levofloxacin (Levofloxacin 750 Mg Tablet) 750 mg PO Q48H [facility] Last Admin: 04/23/25 13:41 Dose: 750 mg Documented By: GEOVANNI Levothyroxine Sodium (Levothyroxine Sodium 100 Mcg/5 Ml Vial) 37.5 mcg IVPUSH DAILY@0600 [facility] Last Admin: 04/24/25 06:06 Dose: 37.5 mcg Documented By: KATH Sertraline HCl (Sertraline Hcl 25 Mg Tablet) 75 mg PO DAILY [facility] Last Admin: 04/24/25 08:47 Dose: 75 mg Documented By: DIRK Sodium Chloride (0.9 % Sodium Chloride Flush 3 Ml Syringe) 3 ml IVFLUSH QSHIFT [facility] Last Admin: 04/24/25 08:48 Dose: 3 ml Documented By: DIRK Trazodone HCl (Trazodone Hcl 50 Mg Tablet) 12.5 mg PO DAILY@1600 [facility] Last Admin: 04/23/25 17:31 Dose: 12.5 mg Documented By: GEOVANNI Labs 04/23/25 06:28 04/24/25 11:07 Labs: Laboratory Results - last 24 hr 04/24/25 11:07 Anion Gap 14 Estim Creat Clear Calc 24.4 Estimated GFR 34 Random Glucose 134 H Calcium 11.5 H Total Bilirubin 0.6 AST 17 ALT 13 Alkaline Phosphatase 84 Total Protein 6.8 Albumin 4.1 PTH Intact 160.1 H Assessment and Plan (1) HTN (hypertension): Status: Acute Plan 89F PMH Alzheimer's dementia with behavioral agitation, recurrent UTIs, 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 Was admitted for recurrent urinary tract infection course was complicated by severe agitation requiring multiple doses of antipsychotics and benzodiazepines, on evening of 04/12/2025 RT and code blue was called after patient became agonal received 1 dose of epinephrine and Stewart was achieved after 2 minutes, patient intubated and transferred to ICU, treated for pulmonary aspiration and CHF and extubated 04/18/2025, downgraded to medical floor 04/19/2025. Alzheimer's dementia with agitation and acute delirium/acute metabolic encephalopathy due to recurrent urinary tract infection Urine grew Morganella, treated with levofloxacin Agitation much improved - back at baseline - pleasant, conversational but with poor insight GISSELL Acute tubular necrosis due to above improving deconditioning pt eval - rec rehab Acute hypoxic respiratory failure due to above Resolved DVT prophylaxis with Lovenox DNR reason for continued hospitalization: dispo planning Quality Stroke Does the patient have a stroke diagnosis?: No VTE Prior VTE?: No VTE Risk Level:: Medical - moderate - high VTE Device Contraindication: N/A - Device Ordered VTE Drug Contraindication: N/A - Med Ordered
[2025-04-24 12:00] VITALS: BP 135/70; PULSE 90; RESP 15; TEMP 36.5; O2SAT 94
--- NOTE | 2025-04-24 13:47 | MHC.SL.SWA ---
Speech Pathologist Impression: Risk of Aspiration, Oropharyngeal Dysphagia Dysphasia Diet Status: No Change- Continue NDD2 (ground/mechanical), THIN liquids with direct supervision/assist if needed. Liquid Consistency and Strategies for Safe Swallow: Liquid Intake Recommendation: Thin Solid Food Consistency: Dietary Recommendations: Grnd/Mech Altered (NDD2) Oral Medication Intake: Whole with Puree Please contact the pharmacy regarding appropriate crushable or liquid drug formulations that are available whenever modified delivery is recommended. Compensatory Strategies and Precautions to be Taken for Safe Swallow: Sitting Upright (90 deg) Small Bites and Sips Alternate Liquids/Solids Rate of Ingestion Change Supervision While Eating and Drinking for Safe Swallow: Direct Supervision (1:1) Swallowing Recommended Treatments: Compens. Strategy Educat. Recommendation for Speech: Inpatient Speech Therapy Comment: Patient with known advanced dementia; fluctuating confusion and behaviors requiring supervision. TRAFFIC II MANAGER to continue to follow. Frequency/Duration: Daily M-F Date Range for Service Req: Timeline to reassess: Air Bag Stripper Clinican/Clinical Fellow: No Supervisory Statement: I have reviewed and agree with the student/clinical fellow's documentation: N/A Speech Language Pathologist: Julienne Butler M.A., CCC-TRAFFIC II MANAGER
[2025-04-24 15:22] VITALS: BP 147/70; PULSE 84; RESP 18; TEMP 36.5; O2SAT 95
[2025-04-28 06:28] LABS: Vitamin D 25-OH, D2 <4 ng/mL; Vitamin D 25-OH, D3 38 ng/mL; Vitamin D 25-OH, Total 38 ng/mL (30-100)
== END 2025-04-24 16:20 | disposition skilled nursing facility (03) | DRG 689 ==
LOC: HO.ED 16:18 → HO.EDOVER 17:03 → HO.S3 04-11 00:21 → HO.ICU 04-12 20:40 → HO.IMC 04-19 12:51 → HO.S3 04-22 16:29
PROVIDERS: Internal Medicine Critical Care Medicine; Internal Medicine Pulmonary Disease; Nurse Practitioner Family; Registered Nurse Community Health; Admitting Provider Family Medicine; Emergency Provider Student in an Organized Health Care Education/Training Program; PCP Internal Medicine; Visit Provider Internal Medicine
DX: N39.0 Urinary tract infection, site not specified (principal); G93.41 Metabolic encephalopathy; I46.9 Cardiac arrest, cause unspecified; J96.01 Acute respiratory failure with hypoxia; J96.02 Acute respiratory failure with hypercapnia; N17.0 Acute kidney failure with tubular necrosis; J69.0 Pneumonitis due to inhalation of food and vomit; I50.33 Acute on chronic diastolic (congestive) heart failure; F02.811 Dementia in other diseases classified elsewhere, unspecified severity, with agitation; F05 Delirium due to known physiological condition; E03.9 Hypothyroidism, unspecified; I95.2 Hypotension due to drugs; Z87.440 Personal history of urinary (tract) infections; Z66 Do not resuscitate; E78.5 Hyperlipidemia, unspecified; G30.9 Alzheimer's disease, unspecified; I11.0 Hypertensive heart disease with heart failure; E83.52 Hypercalcemia; Z86.718 Personal history of other venous thrombosis and embolism; Z87.891 Personal history of nicotine dependence; Z78.1 Physical restraint status; Z79.01 Long term (current) use of anticoagulants; Z79.890 Hormone replacement therapy; Z79.899 Other long term (current) drug therapy
CPT/HCPCS: 36415; 70450; 70490; 71045; 71250; 72125; 73030; 73521; 74176; 76775; 80048; 80053; 80076; 80202; 80307; 81001; 81003; 82040; 82306; 82550; 82803; 82947; 83605; 83735; 83880; 83970; 84100; 84439; 84443; 84484; 85025; 85027; 87040; 87086; 87088; 87186; 87637; 92526; 92610; 93005; 94002; 94003; 94640; 95816; 97162; 97530; 99285; J0153; J0168; J0618; J0651; J0696; J1171; J1650; J1720; J1938; J1953; J1956; J2185; J2250; J2359; J2470; J2598; J2704; J3010; J3360; J3374; J3475; J7120; P9047

== ENCOUNTER 2025-04-10 16:58 | Outpatient (BNV) | payer MEDICARE, OTHER, SELFPAY | END 2025-04-11 11:59 | PROVIDERS: Admitting Provider Family Medicine; Emergency Provider Student in an Organized Health Care Education/Training Program; PCP Internal Medicine; Visit Provider Internal Medicine Cardiovascular Disease | DX: Z13.6 Encounter for screening for cardiovascular disorders (principal) | CPT/HCPCS: 93010 ==

== ENCOUNTER 2025-04-10 16:58 | Outpatient (BNV) | payer MEDICARE, OTHER, SELFPAY | END 2025-04-12 | PROVIDERS: Admitting Provider Family Medicine; Emergency Provider Student in an Organized Health Care Education/Training Program; PCP Internal Medicine; Visit Provider Internal Medicine Cardiovascular Disease | DX: R09.2 Respiratory arrest (principal) | CPT/HCPCS: 93010 ==

== ENCOUNTER 2025-04-10 16:58 | Outpatient (BNV) | payer MEDICARE, OTHER, SELFPAY | END 2025-04-21 17:44 | PROVIDERS: Admitting Provider Family Medicine; Emergency Provider Student in an Organized Health Care Education/Training Program; PCP Internal Medicine; Visit Provider Radiology Diagnostic Radiology | DX: N17.9 Acute kidney failure, unspecified (principal) | CPT/HCPCS: 76775 ==

== ENCOUNTER 2025-04-10 16:58 | Outpatient (BNV) | payer MEDICARE, OTHER, SELFPAY | END 2025-04-13 10:30 | PROVIDERS: Admitting Provider Family Medicine; Emergency Provider Student in an Organized Health Care Education/Training Program; PCP Internal Medicine; Visit Provider Psychiatry & Neurology Neurology | DX: R56.9 Unspecified convulsions (principal) | CPT/HCPCS: 95816 ==

== ENCOUNTER → 2025-04-10 16:58 | Outpatient (BNV) | payer MEDICARE, OTHER, SELFPAY | PROVIDERS: Admitting Provider Family Medicine; Emergency Provider Student in an Organized Health Care Education/Training Program; PCP Internal Medicine; Visit Provider Nurse Practitioner Family | DX: I46.9 Cardiac arrest, cause unspecified (principal); J96.90 Respiratory failure, unspecified, unspecified whether with hypoxia or hypercapnia; N39.0 Urinary tract infection, site not specified | CPT/HCPCS: 31500; 99291 ==

== ENCOUNTER → 2025-04-10 16:58 | Outpatient (BNV) | payer MEDICARE, OTHER, SELFPAY | PROVIDERS: Admitting Provider Family Medicine; Emergency Provider Student in an Organized Health Care Education/Training Program; PCP Internal Medicine; Visit Provider Internal Medicine Nephrology | DX: N17.9 Acute kidney failure, unspecified (principal) | CPT/HCPCS: 99222 ==

== ENCOUNTER → 2025-04-10 16:58 | Outpatient (BNV) | payer MEDICARE, OTHER, SELFPAY | PROVIDERS: Admitting Provider Family Medicine; Emergency Provider Student in an Organized Health Care Education/Training Program; PCP Internal Medicine; Visit Provider Internal Medicine Pulmonary Disease | DX: J96.01 Acute respiratory failure with hypoxia (principal); G30.1 Alzheimer's disease with late onset; F02.818 Dementia in other diseases classified elsewhere, unspecified severity, with other behavioral disturbance; T17.908A Unspecified foreign body in respiratory tract, part unspecified causing other injury, initial encounter; J81.1 Chronic pulmonary edema; N39.0 Urinary tract infection, site not specified; N17.9 Acute kidney failure, unspecified | CPT/HCPCS: 99291 ==

== ENCOUNTER → 2025-04-10 16:58 | Outpatient (BNV) | payer MEDICARE, OTHER, SELFPAY | PROVIDERS: Admitting Provider Family Medicine; Emergency Provider Student in an Organized Health Care Education/Training Program; PCP Internal Medicine; Visit Provider Social Worker | DX: G30.1 Alzheimer's disease with late onset (principal); F02.818 Dementia in other diseases classified elsewhere, unspecified severity, with other behavioral disturbance | CPT/HCPCS: 99232 ==

== ENCOUNTER → 2025-04-10 16:58 | Outpatient (BNV) | payer MEDICARE, OTHER, SELFPAY | PROVIDERS: Admitting Provider Family Medicine; Emergency Provider Student in an Organized Health Care Education/Training Program; PCP Internal Medicine; Visit Provider Family Medicine | DX: N17.9 Acute kidney failure, unspecified (principal) | CPT/HCPCS: 99232; 99499 ==

== ENCOUNTER 2025-04-25 07:14 | Outpatient (REF) | payer SELFPAY ==
--- OUTSIDE RECORDS SUMMARY | 2024-11-15 11:00 | XMS_ITS ---
Author Organization [facility] Address [address] [place] [address] Care Team Providers Care Ready To Wear Department Manager Name Role Phone Renan Molina MD, Elizabeth Primary Care Provider U chachaailelayne Silva, Starr Unavailable [phone] Encounters Encounter Location Date Provider Diagnosis [address] [place] [address] 11/15/2024 Starr Silva Plan Of Treatment No Information Progress Notes * Lashaun HOWARDDOB:1935 (89 yo F)Acc No.[id number]:11/15/2024 Progress Note Patient: Lashaun WATKINS Provider: Tc Silva DPM :1935 A ge:89 Y S ex:Female Date:11/15/2024 Address:[address], [place], [id number] Pcp:Elizabeth Molina MD Subjective: * Chief Complaints: * * Medical History: Objective: * Vitals: Assessment: Plan: * Treatment: * Images: * The named appointment provid er may or may not be the originator of this progress note, and it is not deemed complete until electronically signed by the appointment provider. Sign off status: Pending * Provider: Tc Silva DPM Date: 0 11/15/2024 Generated for Printi ng/Farogeriog/eTransmitting on: 1 06/26/2024 07:17 AM EST
--- OUTSIDE RECORDS SUMMARY | 2025-04-25 07:18 | XMS_ITS | Patient Health Record ---
Author Organization [facility] Address [address] [facility] [place] [address] Care Team Providers Care Practicing Urologist Name Role Phone Renan Molina MD, May Primary Care Provider U navailable Black, Starr Unavailable [phone] Allergies No Known Allergies Reason For Referral [...] Problem Acquired hammer toe of right foot (7932189935212946 ) Other hammer toe(s) (acquired), right foot (M20.41) Active confirmed Problem PlantarFlexion o f metatarsal of right foot (M21.6X1) Active confirmed Problem PlantarFlexion o f metatarsal of left foot (M21.6X2) Active confirmed Problem Localized, primary osteoarthritis of the ankle and/or foot (449644313) Arthritis of joint of lesser toe, right (M19.071) Active confirmed Plan Of Treatment Pending Test Test Name Order Date X ray : Foot, right 2V 04/23/2012 X ray : Foot, right 2V 05/28/2012 X ray : Foot, left 3V 03/16/2012 X ray : Foot, right 3V 03/16/2012 30404-XIGLNTL NAIL, 6 OR MORE 03/23/2020 76976-ZSLOIPE NAIL, 6 OR MORE 09/14/2020 03059-VBYLQMG NAIL, 6 OR MORE 12/14/2020 50715-XQMXMYC NAIL, 6 OR MORE 03/26/2021 65983-GXIHOGA NAIL, 6 OR MORE 08/21/2021 91985-FJWIVFL NAIL, 6 OR MORE 11/22/2021 31293-XYLCNKE NAIL, 6 OR MORE 05/30/2022 47490-QGYPRLF NAIL, 6 OR MORE 09/02/2022 59850-DFLWEXF NAIL, 6 OR MORE 12/03/2022 21008-ZTCQEYJ NAIL, 6 OR MORE 03/04/2023 42688-VDMXNCJ NAIL, 6 OR MORE 06/09/2023 77241-Uycftwgd Plate 12/03/2022 98777-Nlbyqhcf Plate 05/30/2022 13190-Afbvwfgt Plate 09/14/2020 39312-Cdiiegmu Plate 08/21/2021 36897-Ngjqfryd Plate 03/26/2021 00921-Ecaofrgh Plate 12/14/2020 63603-Nojehavh Plate 03/23/2020 92000-Vnqwfgqo Plate Each Additional 39134-Hzikriwa Plate Each Additional Insurance Providers Payer Name Payer Address Payer Phone Subscriber Number Group Number Insured Name Patient Relationship to Insured Coverage Start Date Coverage End Date Medicare [employer] [address] [facility] [place] [address] [phone] [id number] Lashaun Turpin Self - patient is the insured [facility] [address] RANJAN SOTO [id number] Lashaun Turpin Self - patient is the insured Medical (General) History Medical History History ICD Code Arthritis back, hip, knee pain broken bones cholesterol gall bladder problems Hiatal hernia high blood pressure sciatica thyroid disorder chicken pox measles mumps CAD (Cholesterol) Nerve disease Reflux Surgical History Surgery Date(Month/Year)
--- OUTSIDE RECORDS SUMMARY | 2025-04-25 07:18 | XMS_ITS | Data Portability ---
Author Organization [place] - [facility] Address [address] [place] [address] Assessment Encounter Date Assessment Date Assessment LastModified [...] right ankle 3 v out of cast [email or web address] Not available 04/26/2024 12:49:17 05/17/2024 05/17/2024 SUBJECTIVE Chief Complaint Follow-up for right ankle fracture, status post-ORIF performed on April 10, 2024. History of Present Illness The patient, YESSENIA, is accompanied by a family member from her rehab facility. She reports minimal pain and is doing well. TM remains orh-haazut-xwxeegx on the affected extremity. OBJECTIVE Examination The patient's right ankle shows foot swelling. The calf is soft and non-tender. Medial and lateral incisions are well-healed with monofilament suture in place. Imaging X-rays ordered, obtained, and reviewed by me today at [facility] of the right ankle, three views, show [...] ankle X-ray. Date: 05/17/2024 Patient Name: YESSENIA [email or web address] Not available 05/17/2024 11:39:26 06/15/2024 06/15/2024 SUBJECTIVE [...] obtained, and reviewed by me today at [facility]: Right ankle, three views, show malleolar fixation intact, fracture lines through the medial and lateral malleolus resolving, ankle joint spaces maintained. ASSESSMENT Right ankle fracture healing. PLAN Discontinue cast. Allow weight-bearing as tolerated with the goal of resuming ambulation. Recheck in three months. [email or web address] Not available 06/15/2024 12:09:52 09/13/2024 09/13/2024 SUBJECTIVE: [...] obtained and reviewed by me today at [facility] Right ankle three views show the ankle joints appropriately positioned. The lateral, medial and posterior malleoli fracture alignment maintained with signs of healing. Fracture lines blurred fibular and medial malleolar implants in place. ASSESSMENT: Right ankle fracture trimaleolar status post ORIF with routine healing and good recovery to date. PLAN: Further follow up on an as needed basis. No restrictions outlined. [email or web address] Not available 09/13/2024 12:11:09 Plan of Treatment Reminders Order Date Submit Date Provider Last Modified By Organization Details Last Modified Time Details Appointments None recorded. Lab None recorded. Referral None recorded. Procedures None recorded. Surgeries None recorded. Imaging XR, ankle, 3 or more view - 315 rt ankle 3v recheck 025 025 [facility], [address], [place], [address], 5 12:58:04 XR, ankle, 3 or more view - 314 3v rt ankle global cast off first 025 025 [facility]stam[facility], [address], [place], [address], 5 06:52:27 XR, ankle, 3 or more view - 314- right ankle 3v global cast off first 025 025 [email or web address] 4 [facility], [address], [place], [address], 5 12:03:07 XR, ankle, 3 or more view - 314 rt ankle 3v global 024 024 [email or web address] 0 [facility], [address], [place], [address], 4 16:14:13 Medication Orders None recorded. Patient TargetsNo targets recorded. Patient Instructions Encounter Date Encounter Id Patient Instructions Last Modified By Organization Details Last Modified Time 04/26/[id number] application of cast, short leg cast* - 314 SLC NWB NEUTRAL, pt very stiff unable to get to neutral [email or web address] Not available 05/03/2024 16:14:13 05/17/[id number] cast removal* - 314 cast off and xr [email or web address] Not available 05/17/2024 12:03:07 application of cast, short leg cast* - 314 SLC neutral WB [email or web address] Not available 05/17/2024 12:14:11 06/15/[id number] cast removal* - 314 rt ankle cast off and xr, global [email or web address] Not available 06/15/2024 13:05:35 Reason for Referral None Reported. Results Created Date Observation Date Name Description Value Unit Range Abnormal Flag Note LastModifiedBy Organization Detail LastModifiedTime 04/26/20 24 04/26/2024 XR, ankle , 3 or more view [email or web address] ?Encry pted=s hAaTro YD8dLq bEUv6g %2BXZw aYqtaq 0bqfl% 2Fg9IQ a4ajBk vP9nXo QUaueC m3YtLR FvZl [place] [address] 3h6629 AC0Kqb nuBUqW kKiQtr MwF INTERFACE [facility] [address], [place], [address], 04/26/2024 10:34:44 04/26/20 24 04/26/2024 XR, ankle , 3 or more view [email or web address] ?Encry pted=s hAaTro YD8dLq bEUv6g %2BXZw aYqtaq 0bqfl% 2Fg9IQ a4ajBk vP9nXo QUaueC m3YtLR [facility] [place] [address] 4t2210 AC0Kqb nuBUqW kKiQtr MwF INTERFACE [facility] [address], [place], [address], 04/26/2024 10:34:46 05/17/19 25 05/17/2024 XR, ankle , 3 or more view [email or web address]:/ [email or web address] ?Encry pted=s hAaTro YD8dLq bEUv6g %2BXZw aYqtaq 0bqfl% 2Fg9IQ a4ajBk vP9nXo QUaueC m3YtLR Zl JJ8mAn HZtai3 5d0144 AC0Kqb 3mFUaW vKiQtr MwF INTERFACE [facility] [address] [facility] [address], [place], [address], 05/17/2024 10:58:19 05/17/19 25 05/17/2024 XR, ankle , 3 or more view [email or web address] ?Encry pted=s hAaTro YD8dLq bEUv6g %2BXZw aYqtaq 0bqfl% 2Fg9IQ a4ajBk vP9nXo QUaueC m3YtLR FvZlgJ JJ8mAn HZtai3 7s8157 AC0Kqb 3mFUaW vKiQtr MwF INTERFACE [facility] [address] [facility] [address] [facility] [address], [place], [address], 05/17/2024 10:58:21 06/15/19 25 06/15/2024 XR, ankle , 3 or more view [email or web address]:/ [email or web address] ?Encry pted=s hAaTro YD8dLq bEUv6g %2BXZw aYqtaq 0bqfl% 2Fg9IQ a4ajBk vP9nXo QUaueC m3YtLR FvZlgJ JJ8mAn HZtai3 4r0293 AC0Kqb HqNWaO kKiQtr MwF INTERFACE [facility] [address] [facility] [address], [place], [address], 06/15/2024 10:36:12 06/15/19 25 06/15/2024 XR, ankle , 3 or more view [email or web address] ?Encry pted=s hAaTro YD8dLq bEUv6g %2BXZw aYqtaq 0bqfl% 2Fg9IQ a4ajBk vP9nXo QUaueC m3YtLR FvZlgJ JJ8mAn HZtai3 9n4953 AC0Kqb HqNWaO kKiQtr MwF INTERFACE [facility] [address], [place], [address], 06/15/2024 10:36:15 09/14/19 25 09/13/2024 XR, ankle , 3 or more view [email or web address]:/ [email or web address] ?Encry pted=s hAaTro YD8dLq bEUv6g %2BXZw aYqtaq 0bqfl% 2Fg9IQ a4ajBk vP9nXo QUaueC m3YtLR FvZlgJ [facility] HZtai3 1t5616 AC0Kla nSDVqK kKiQtr MwF INTERFACE [facility] [address], [place], [address], 09/13/2024 11:54:15 09/14/19 25 09/13/2024 XR, ankle , 3 or more view [email or web address]:/ [email or web address] ?Encry pted=s hAaTro YD8dLq bEUv6g %2BXZw aYqtaq 0bqfl% 2Fg9IQ a4ajBk vP9nXo QUaueC m3YtLR FvZlJ [address] [address] AC0Kla nSDVqK kKiQtr MwF INTERFACE [facility] [address] [place] [address], [place], [address], 09/13/2024 11:54:16 09/14/19 25 09/13/2024 XR, ankle , 3 or more view [email or web address]:/ [email or web address] ?Encry pted=s hAaTro YD8dLq bEUv6g %2BXZw aYqtaq 0bqfl% 2Fg9IQ a4ajBk vP9nXo QUaueC m3YtLR FvZlgJ JJ8mAn HZtai3 0j2323 AC0Kla nSDVqK kKiQtr MwF INTERFACE [facility] [address], [place], [address], 09/13/2024 12:02:41 09/14/19 25 09/13/2024 XR, ankle , 3 or more view [email or web address]:/ [email or web address] ?Encry pted=s hALianeto YD8dLq bEUv6g %2BXZw aYqtaq 0bqfl% 2Fg9IQ a4ajBk vP9nXo QUaueC m3YtLR FvZlgJ JJ8mAn HZtai3 2s7051 AC0Kla nSDVqK kKiQtr MwF INTERFACE [facility] [address] [facility] [address], [place], [address], 09/13/2024 12:02:43 Result Notes Documentation Provider Name and Address Organization Details Recorded Time Xr, Ankle, 3 Or More View : [email or web address] Encrypted=mfZxRhtUR4cRarK Uv6g%7PKXzqKxwdn1bnxc%2Fg 4VDw4shIwfV9jKbYWzekTm0My AZWrYbrPUA5aHzSEhte09a872 1LV4JdhpuAWbCiRgActSpI Not Available [facility] 04/26/2024 10:34: 44 Xr, Ankle, 3 Or More View : [email or web address]? Encrypted=bzSqKlgXT9jDrdZ Uv6g%2CCJtfSmhet0phlh%2Fg 0XPu9bfTovX4sInILqlvRy5Tu OYAlOwdHEM5fVySHrbj99z925 8JP4TxobmHGoJtNdImmRdO Not Available [facility] 04/26/2024 10:34: 47 Xr, Ankle, 3 Or More View : [email or web address]? Encrypted=toVuFibMA6jCssX Uv6g%5WQTexBxlgg5ifky%2Fg 8HVq8mbTajD3lRdAYrhrMt0Sa BFUgHyaBZF8eNrAVoiv22i641 8WP3Pns1pUCsYpZxDtgVsX Not Available [facility] 05/17/2024 10:58: 19 Xr, Ankle, 3 Or More View : [email or web address] Encrypted=knMyDosUC7wEjqA Uv6g%3TDIuqLjwde0qpdw%2Fg 1DFy6tlEhyU4nYtRUzwySl3Yd ERIiWfbKOL4wBrICpar42t360 6HV5Gcb0cOSeObMnQqkGaV Not Available [facility] 05/17/2024 10:58: 22 Xr, Ankle, 3 Or More View : [email or web address] Encrypted=njUdMtlQY6vKfeB Uv6g%2NCKvwGskyu6hfud%2Fg 6VKm1jfKviI4bVpPQrzoSy7Bq NQQbFfyFHH3nEfHMgtl54k170 8DG8GspIuUVwKsXxNnvXqA Not Available [facility] 06/15/2024 10:36: 13 Xr, Ankle, 3 Or More View : [email or web address]? Encrypted=srRyCpiMB5pNhmA Uv6g%8EMDhvCfptc8kjuq%2Fg 7PDd2mmYadI8vEcPRtypBf0Uu NPExVsyYHB1iXzOSjdd54d804 3BB5OopQsAZgEfMsWerYmQ Not Available [facility] 06/15/2024 10:36: 15 Xr, Ankle, 3 Or More View : [email or web address]? Encrypted=utIeHieKE3zPtpQ Uv6g%9PKOvqSplbm6krbf%2Fg 5GNy1woZpkQ0lHxSMssbCm1Ig NAOmLwlIXZ9uFuEDzen02m926 0IV0CgmaAEGxTkXoXtsUtO Not Available [facility] 09/13/20[facility] 11:54: 15 Xr, Ankle, 3 Or More View : [email or web address] Encrypted=fgPyOurJM5yTucX Uv6g%9PMHwjWrrri6irat%2Fg 0KPm0swCphP7oLnQPrxiJk4Jk LKYsVcgMLV6zPoODhoi33j293 3BG8AmgjNVQmRnPwNqiOxW Not Available [facility] 09/13/2024 11:54: 17 Xr, Ankle, 3 Or More View : [email or web address] Encrypted=qlFxQltZQ2bZjrK Uv6g%7TDIobMwqdl9akcn%2Fg 7ZXf6kdChpG1mAsDRkcbBv9Vo ZTRfTpyNBS2lUgZEzmh27f492 7AG8NbdlRZUvBaZrXhiHvV Not Available [facility] 09/13/2024 12:02: 42 Xr, Ankle, 3 Or More View : [email or web address] Encrypted=ntLcQlpQO0jUzdN Uv6g%2DNCsjOfosh6urzf%2Fg 0DIs3ojAstB6eEcJCiuwOo2Si NVOiZxhTQC8kOiCMvgm14q721 8HU4HaulRENkKzOhEzxNkX Not Available [facility] 09/13/2024 12:02: 43 Medical Equipment None Reported. [...] Details Last Updated DateTime 05/17/2024 152.4 cm [facility] 05/17/2024 10:33:53 Date Recorded Body height Provider Name an d Address Organization Details Last Updated DateTime 06/15/2024 152.4 cm [facility] 06/15/2024 10:18:57 Date Recorded Body height Provider Name an d Address Organization Details Last Updated DateTime 09/13/2024 152.4 cm [facility] 09/13/2024 11:47:37 Date Recorded Body height Provider Name an d Address Organization Details Last Updated DateTime 04/26/2024 152.4 cm [facility] [...] Disease N Heart Trouble N Heart Attack ([place]) N Gastrointestinal Disease N Cholesterol Y Diabetes N Autoimmune disease N Bleeding Disorder N Inflammatory Joint disease N Orthotics N Arthritis N Seizures/Epilepsy N [...] ICD10 Code Diagnosis IMO Codes Diagnosis Note [id number] Cate Chen MD [facility] [address] [place] [address] 04/26/2024 10:10:07 05/18/2024 16:28:27 Closed fracture of right ankle 3530761365 [id number] S82.891A [id number] [facility] [address] [address] [place] [address] 05/17/2024 10:20:39 05/17/2024 11:41:43 Closed fracture of right ankle [id number] [id number] S82.891A [id number] [id number] MD CHRISTIAN Shelby [facility] [address] [place] [address] 06/15/2024 10:09:23 07/05/2024 06:52:27 Closed fracture of right ankle 0151644188 1106274 S82.891A [id number] [id number] [facility] [address] [place] [address] 09/13/2024 11:43:31 09/20/2024 12:58:04 Closed fracture of right ankle 4734329069 [id number] S82.891A [id number] Health Concerns Section Related Observation LastModified by Organization Detai ls LastModified Time None Recorded Concern Status LastModified by Organization Details LastModified Time None Recorded Advance Directives Directive None Recorded Payers Insurance Date Sequence Insurance Name Policy Number Policy Thomas Covered Member ID Thomas Member ID Guarantor Name 09/11/2024 1 [place]: [employer] Lashaun Turpin [id number] Lashaun Turpin 09/20/2024 2 [facility] [place] [id number] Lashaun Turpin [id number] Lashaun Papi 06/06/20[address] [facility] Lashaun Papi [id number] Lashaun Papi 09/11/2024 [facility] [employer] CLAIM[employer] (MEDICARE DME REGION A) Lashaun Pastor Turpin [id number] Lashaun Papi OBGyn Episode No OBEpisode recorded.
--- OUTSIDE RECORDS SUMMARY | 2025-04-25 07:18 | XMS_ITS | Encounter Summary ---
Author Organization [facility] Address [address] [place] [address] Care Team Providers Care Ambulatory Care Nurse Name Role Phone Lauren Garcia MD Primary Care Provider + Encounter Details Date Type Department Care Team (Late st Contact Info) Description 06/09/2024 Lab Requisition [facility] - Main Lab 299 [facility] [place] [address] Lauren Garcia MD [address] [phone] Altered mental status, unspecified; Vitamin D deficiency, [...] LAB CHEMISTRY METHOD 06/09/2024 11:28 AM EST [facility] Potassium 4.3 3.5 - 5.5 mmol/L LAB CHEMISTRY METHOD 06/09/2024 11:28 AM EST [facility] Chloride 104 96 - 110 mmol/L LAB CHEMISTRY METHOD 06/09/2024 11:28 AM [facility] CO2 26 21 - 32 mmol/L LAB CHEMISTRY METHOD 06/09/2024 11:28 AM [facility] Anion Gap 9 3 - 11 LAB CHEMISTRY METHOD 06/09/2024 11:28 AM [facility] Glucose 87 70 - 100 mg/dL LAB CHEMISTRY METHOD 06/09/2024 11:28 AM [facility] BUN 51(H) 5 - 25 mg/dL LAB CHEMISTRY METHOD 06/09/2024 11:28 AM [facility] Creatinine 2.09(H) 0.50 - 1.10 mg/dL LAB CHEMISTRY METHOD 06/09/2024 11:28 AM [facility] eGFR 23(L) >=60 mL/min/1. 73m2 LAB CHEMISTRY METHOD 06/09/2024 11:28 AM [facility] Comment:Calculation based on the Chronic Kidney Disease Epidemiology Collaboration (CKD-EPI) equation refit without adjustment for race. BUN/Creatinine Ratio 24.4 LAB CHEMISTRY METHOD 06/09/2024 11:28 AM [facility] Calcium 9.7 8.5 - 10.5 mg/dL LAB CHEMISTRY METHOD 06/09/2024 11:28 AM [facility] Blood Venous blood specimen / Unknown Venipuncture / Unknown 06/09/2024 7:19 AM EST 06/09/2024 10:24 AM EST us Lauren Garcia MD LAB BLOOD ORDERABLES Fin al Result [facility] [address] [place] [address], * (ABNORMAL) Complete blood count (06/09/2024 7:19 AM EST) WBC 5.5 4.8 - 10.8 K/mcL LAB HEMETOLOGY METHOD 06/09/2024 11:24 AM [facility] RBC 3.90 3.80 - 4.80 M/mcL LAB HEMETOLOGY METHOD 06/09/2024 11:24 AM [facility] Hemoglobin 10.1(L) 11.5 - 16.0 g/dL LAB HEMETOLOGY METHOD 06/09/2024 11:24 AM [facility] Hematocrit 33.6(L) 35.0 - 47.0 % LAB HEMETOLOGY METHOD 06/09/2024 11:24 AM [facility] MCV 85.3 79.0 - 98.0 FL LAB HEMETOLOGY METHOD 06/09/2024 11:24 AM [facility] MCH 25.6(L) 27.0 - 32.0 pcg LAB HEMETOLOGY METHOD 06/09/2024 11:24 AM [facility] MCHC 30.1(L) 32.0 - 37.0 g/dL LAB HEMETOLOGY METHOD 06/09/2024 11:24 AM [facility] RDW 16.5(H) 11.0 - 15.0 % LAB HEMETOLOGY METHOD 06/09/2024 11:24 AM [facility] Platelets 185 130 - 400 K/mcL LAB HEMETOLOGY METHOD 06/09/2024 11:24 AM [facility] MPV 13.0(H) 7.0 - 11.0 FL LAB HEMETOLOGY METHOD 06/09/2024 11:24 AM [facility] NRBC 0.0 <1.0 % LAB HEMETOLOGY METHOD 06/09/2024 11:24 AM [facility] NRBC Absolute 0.00 <0.10 K/mcL LAB HEMETOLOGY METHOD 06/09/2024 11:24 AM EST [facility] Blood Venous blood specimen / Unknown Venipuncture / Unknown 06/09/2024 7:19 AM EST 06/09/2024 10:24 AM EST Lauren Garcia MD LAB BLOOD ORDERABLES Fin al Result [facility] ([facility]) [facility] [address] [place] [address], documented in this encounter Visit Diagnoses Diagnosis Altered mental status, unspecified Vitamin D deficiency, unspecified documented in this encounter Additional Health Concerns Infection Onset Date Last Indicated Resolved 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
--- OUTSIDE RECORDS SUMMARY | 2025-04-25 07:18 | XMS_ITS | Encounter Summary ---
Author Organization Pat [facility] Address [address] [place] [address] Care Team Providers Care Rate And Cost Analyst Name Role Phone Lauren Garcia MD Primary Care Provider + Encounter Details Date Type Department Care Team (Late st Contact Info) Description 06/11/2024 Lab Requisition [facility] - Main Lab 299 [facility] [place] [address] Lauren Garcia MD [address] [phone] Essential (primary) hypertension Social History Tobacco Use [...] mmol/L LAB CHEMISTRY METHOD 06/13/2024 11:30 AM [facility] CO2 28 21 - 32 mmol/L LAB CHEMISTRY METHOD 06/13/2024 11:30 AM [facility] Anion Gap 6 3 - 11 LAB CHEMISTRY METHOD 06/13/2024 11:30 AM [facility] Glucose 72 70 - 100 mg/dL LAB CHEMISTRY METHOD 06/13/2024 11:30 AM [facility] BUN 45(H) 5 - 25 mg/dL LAB CHEMISTRY METHOD 06/13/2024 11:30 AM [facility] Creatinine 1.32(H) 0.50 - 1.10 mg/dL LAB CHEMISTRY METHOD 06/13/2024 11:30 AM [facility] eGFR 39(L) >=60 mL/min/1. 73m2 LAB CHEMISTRY METHOD 06/13/2024 11:30 AM [facility] Comment:Calculation based on the Chronic Kidney Disease Epidemiology Collaboration (CKD-EPI) equation refit without adjustment for race. BUN/Creatinine Ratio 34.1 LAB CHEMISTRY METHOD 06/13/2024 11:30 AM [facility] Calcium 9.5 8.5 - 10.5 mg/dL LAB CHEMISTRY METHOD 06/13/2024 11:30 AM [facility] Blood Venous blood specimen / Unknown Venipuncture / Unknown 06/13/2024 5:32 AM EST 06/13/2024 10:14 AM EST us Lauren Garcia MD LAB BLOOD ORDERABLES Fin al Result [facility] [address] [place] [address], * (ABNORMAL) Complete blood count (06/13/2024 5:32 AM EST) WBC 8.2 4.8 - 10.8 K/mcL LAB HEMETOLOGY METHOD 06/13/2024 10:40 AM [facility] RBC 3.70(L) 3.80 - 4.80 M/mcL LAB HEMETOLOGY METHOD 06/13/2024 10:40 AM [facility] Hemoglobin 9.5(L) 11.5 - 16.0 g/dL LAB HEMETOLOGY METHOD 06/13/2024 10:40 AM [facility] Hematocrit 31.9(L) 35.0 - 47.0 % LAB HEMETOLOGY METHOD 06/13/2024 10:40 AM [facility] MCV 86.9 79.0 - 98.0 FL LAB HEMETOLOGY METHOD 06/13/2024 10:40 AM [facility] MCH 25.9(L) 27.0 - 32.0 pcg LAB HEMETOLOGY METHOD 06/13/2024 10:40 AM [facility] MCHC 29.8(L) 32.0 - 37.0 g/dL LAB HEMETOLOGY METHOD 06/13/2024 10:40 AM [facility] RDW 16.6(H) 11.0 - 15.0 % LAB HEMETOLOGY METHOD 06/13/2024 10:40 AM [facility] Platelets 168 130 - 400 K/mcL LAB HEMETOLOGY METHOD 06/13/2024 10:40 AM [facility] MPV 12.2(H) 7.0 - 11.0 FL LAB HEMETOLOGY METHOD 06/13/2024 10:40 AM [facility] NRBC 0.0 <1.0 % LAB HEMETOLOGY METHOD 06/13/2024 10:40 AM [facility] NRBC Absolute 0.00 <0.10 K/mcL LAB HEMETOLOGY METHOD 06/13/2024 10:40 AM [facility] Blood Venous blood specimen / Unknown Venipuncture / Unknown 06/13/2024 5:32 AM EST 06/13/2024 10:14 AM EST Lauren Garcia MD LAB BLOOD ORDERABLES Fin al Result [facility] (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
--- OUTSIDE RECORDS SUMMARY | 2025-04-25 07:18 | XMS_ITS | Encounter Summary ---
Author Organization [facility], Address [address] [place] [address] Phone Care Team Providers Care Roof Fitter Name Role Phone Alfa Garrido Primary Care Provider [phone] Encounter Details Date Type Department Care Team (Late st Contact Info) Description 04/04/2025 Documentation Only [facility], [address] [place] [address] [place] [address] [place] [address] Social History Tobacco Use Types Packs/Day Years Used Date Smoking Tobacco: Never Assessed Comments Unknown Sex and Gender Information Value Date Recorded Sex Assigned at Not on file Legal Sex Female 12:49 PM EST Gender Identity Not on file Sexual Orientation Not on file documented as of this encounter Plan of Treatment Not on file documented as of this encounter Visit Diagnoses Not on filedocumented in this encounter Care Teams Roof Fitter Relationship Specialty Start Date End Date Alfa Garrido [facility] [address] [place] [address] PCP - General 04/04/25 documented as of this encounter
--- OUTSIDE RECORDS SUMMARY | 2025-04-25 07:18 | XMS_ITS | Encounter Summary ---
Author Organization [facility] Address [address] [place] [address] Care Team Providers Care Virtual Assistant For Advertisers Name Role Phone Lauren Garcia MD Primary Care Provider + Encounter Details Date Type Department Care Team (Late st Contact Info) Description 05/09/2024 Lab Requisition [facility] - Main Lab 299 [facility] [place] [address] Lauren Garcia MD 819 [facility] 1 [place], [place] [phone] Frequency of micturition Social History Tobacco Use [...] reflex microscopic (05/08/2024 8:00 PM EST) Specific [place] Urine 1.017 1.003 - 1.030 LAB URINALYSIS - AUTOMATED METHOD 05/09/2024 11:42 AM [facility] pH, Urine 5.5 5.0 - 8.0 pH LAB URINALYSIS - AUTOMATED METHOD 05/09/2024 11:42 AM [facility] Leukocytes, Urine Large(A) Negative LAB URINALYSIS - AUTOMATED METHOD 05/09/2024 11:42 AM [facility] Nitrite, Urine Negative Negative LAB URINALYSIS - AUTOMATED METHOD 05/09/2024 11:42 AM [facility] Protein, Urine 100(A) <=Trace mg/dL LAB URINALYSIS - AUTOMATED METHOD 05/09/2024 11:42 AM [facility] Glucose, Urine Negative Negative mg/dL LAB URINALYSIS - AUTOMATED METHOD 05/09/2024 11:42 AM [facility] Ketones, Urine Negative Negative mg/dL LAB URINALYSIS - AUTOMATED METHOD 05/09/2024 11:42 AM [facility] Urobilinogen, Urine 0.2 0.2 - 1.0 mg/dL LAB URINALYSIS - AUTOMATED METHOD 05/09/2024 11:42 AM [facility] Bilirubin, Urine Negative Negative LAB URINALYSIS - AUTOMATED METHOD 05/09/2024 11:42 AM [facility] Blood, Urine Trace(A) Negative LAB URINALYSIS - AUTOMATED METHOD 05/09/2024 11:42 AM [facility] RBC, Urine 5.9(H) 0 - 4 /HPF LAB URINALYSIS - AUTOMATED METHOD 05/09/2024 11:42 AM [facility] WBC, Urine 359.9(H) 0 - 4 /HPF LAB URINALYSIS - AUTOMATED METHOD 05/09/2024 11:42 AM [facility] Squamous Epithelial, Urine 4 0 - 60 /LPF LAB URINALYSIS - AUTOMATED METHOD 05/09/2024 11:42 AM EST [facility] Bacteria, Urine Many(A) Negative /HPF LAB URINALYSIS - AUTOMATED METHOD 05/09/2024 11:42 AM EST [facility] Hyaline Casts, Urine 0.4 0 - 3 /LPF LAB URINALYSIS - AUTOMATED METHOD 05/09/2024 11:42 AM EST [facility] Urine Urine specimen from urethra / Unknown 05/08/2024 8:00 PM EST 05/09/2024 10:56 AM EST us Lauren Garcia MD LAB URINE ORDERABLES Fin al Result [facility] [address] [place] [address], * (ABNORMAL) Culture urine (05/08/2024 8:00 PM EST) Culture, Urine 10,000-49,000 CFU/mL Caryl tropicalis(A) JULISSA 05/13/2024 11:12 AM EST [facility] Comment: The organism value for this result has been updated. These results have been appended to the previously preliminary verified report. Edited result: Previously reported as Yeast on 05/12/2024 at 0916 EST. 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) JULISSA 05/13/2024 11:12 AM EST [facility] Comment: The organism value for [...] MICROBIOLOGY - GENER AL ORDERABLES Final Result [facility] [address] [place] [address], [place] [phone] * (ABNORMAL) Urinalysis with reflex microscopic and culture (05/08/2024 8:00 PM EST) Specific [place] Urine 1.017 1.003 - 1.030 LAB URINALYSIS - AUTOMATED METHOD 05/09/2024 11:18 AM [facility] pH, Urine 5.5 5.0 - 8.0 pH LAB URINALYSIS - AUTOMATED METHOD 05/09/2024 11:18 AM [facility] Leukocytes, Urine Large(A) Negative LAB URINALYSIS - AUTOMATED METHOD 05/09/2024 11:18 AM [facility] Nitrite, Urine Negative Negative LAB URINALYSIS - AUTOMATED METHOD 05/09/2024 11:18 AM [facility] Protein, Urine 100(A) <=Trace mg/dL LAB URINALYSIS - AUTOMATED METHOD 05/09/2024 11:18 AM [facility] Glucose, Urine Negative Negative mg/dL LAB URINALYSIS - AUTOMATED METHOD 05/09/2024 11:18 AM [facility] Ketones, Urine Negative Negative mg/dL LAB URINALYSIS - AUTOMATED METHOD 05/09/2024 11:18 AM [facility] Urobilinogen, Urine 0.2 0.2 - 1.0 mg/dL LAB URINALYSIS - AUTOMATED METHOD 05/09/2024 11:18 AM [facility] Bilirubin, Urine Negative Negative LAB URINALYSIS - AUTOMATED METHOD 05/09/2024 11:18 AM [facility] Blood, Urine Trace(A) Negative LAB URINALYSIS - AUTOMATED METHOD 05/09/2024 11:18 AM [facility] RBC, Urine 5.9(H) 0 - 4 /HPF LAB URINALYSIS - AUTOMATED METHOD 05/09/2024 11:18 AM [facility] WBC, Urine 359.9(H) 0 - 4 /HPF LAB URINALYSIS - AUTOMATED METHOD 05/09/2024 11:18 AM [facility] Squamous Epithelial, Urine 4 0 - 60 /LPF LAB URINALYSIS - AUTOMATED METHOD 05/09/2024 11:18 AM [facility] Bacteria, Urine Many(A) Negative /HPF LAB URINALYSIS - AUTOMATED METHOD 05/09/2024 11:18 AM [facility] Hyaline Casts, Urine 0.4 0 - 3 /LPF LAB URINALYSIS - AUTOMATED METHOD 05/09/2024 11:18 AM [facility] Urine Urine specimen from urethra / Unknown 05/08/2024 8:00 PM EST 05/09/2024 10:56 AM EST us Lauren Garcia MD LAB URINE ORDERABLES Fin al Result [facility] [address] [place] [address], documented in this encounter Visit Diagnoses Diagnosis Frequency of micturition Urinary frequency documented in this encounter Additional Health Concerns Infection Onset Date Last Indicated Resolved Time 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
--- OUTSIDE RECORDS SUMMARY | 2025-04-25 07:18 | XMS_ITS | Encounter Summary ---
Author Organization Pat [facility] Address [address] [place] [address] Care Team Providers Care Heat Treater Name Role Phone Lauren Garcia MD Primary Care Provider + Encounter Details Date Type Department Care Team (Late st Contact Info) Description 06/19/2024 Lab Requisition [facility] - Main Lab 299 [facility] [place] [address] Lauren Garcia MD [address] [phone] Essential (primary) hypertension Social History Tobacco Use [...] LAB CHEMISTRY METHOD 06/20/2024 11:15 AM EST [facility] Potassium 4.0 3.5 - 5.5 mmol/L LAB CHEMISTRY METHOD 06/20/2024 11:15 AM EST [facility] Chloride 106 96 - 110 mmol/L LAB CHEMISTRY METHOD 06/20/2024 11:15 AM [facility] CO2 27 21 - 32 mmol/L LAB CHEMISTRY METHOD 06/20/2024 11:15 AM [facility] Anion Gap 6 3 - 11 LAB CHEMISTRY METHOD 06/20/2024 11:15 AM [facility] Glucose 83 70 - 100 mg/dL LAB CHEMISTRY METHOD 06/20/2024 11:15 AM [facility] BUN 20 5 - 25 mg/dL LAB CHEMISTRY METHOD 06/20/2024 11:15 AM [facility] Creatinine 1.05 0.50 - 1.10 mg/dL LAB CHEMISTRY METHOD 06/20/2024 11:15 AM [facility] eGFR 52(L) >=60 mL/min/1. 73m2 LAB CHEMISTRY METHOD 06/20/2024 11:15 AM [facility] Comment:Calculation based on the Chronic Kidney Disease Epidemiology Collaboration (CKD-EPI) equation refit without adjustment for race. BUN/Creatinine Ratio 19.0 LAB CHEMISTRY METHOD 06/20/2024 11:15 AM [facility] Calcium 9.5 8.5 - 10.5 mg/dL LAB CHEMISTRY METHOD 06/20/2024 11:15 AM [facility] Blood Venous blood specimen / Unknown Venipuncture / Unknown 06/20/2024 6:51 AM EST 06/20/2024 10:15 AM EST us Lauren Garcia MD LAB BLOOD ORDERABLES Fin al Result [facility] [address] [place] [address], * (ABNORMAL) Complete blood count (06/20/2024 6:51 AM EST) WBC 7.0 4.8 - 10.8 K/mcL LAB HEMETOLOGY METHOD 06/20/2024 10:51 AM [facility] RBC 3.80 3.80 - 4.80 M/mcL LAB HEMETOLOGY METHOD 06/20/2024 10:51 AM [facility] Hemoglobin 9.8(L) 11.5 - 16.0 g/dL LAB HEMETOLOGY METHOD 06/20/2024 10:51 AM [facility] Hematocrit 33.0(L) 35.0 - 47.0 % LAB HEMETOLOGY METHOD 06/20/2024 10:51 AM [facility] MCV 86.4 79.0 - 98.0 FL LAB HEMETOLOGY METHOD 06/20/2024 10:51 AM [facility] MCH 25.7(L) 27.0 - 32.0 pcg LAB HEMETOLOGY METHOD 06/20/2024 10:51 AM [facility] MCHC 29.7(L) 32.0 - 37.0 g/dL LAB HEMETOLOGY METHOD 06/20/2024 10:51 AM [facility] RDW 16.4(H) 11.0 - 15.0 % LAB HEMETOLOGY METHOD 06/20/2024 10:51 AM [facility] Platelets 211 130 - 400 K/mcL LAB HEMETOLOGY METHOD 06/20/2024 10:51 AM [facility] MPV 12.3(H) 7.0 - 11.0 FL LAB HEMETOLOGY METHOD 06/20/2024 10:51 AM [facility] NRBC 0.0 <1.0 % LAB HEMETOLOGY METHOD 06/20/2024 10:51 AM [facility] NRBC Absolute 0.00 <0.10 K/mcL LAB HEMETOLOGY METHOD 06/20/2024 10:51 AM [facility] Blood Venous blood specimen / Unknown Venipuncture / Unknown 06/20/2024 6:51 AM EST 06/20/2024 10:15 AM EST us Lauren Garcia MD LAB BLOOD ORDERABLES Fin al Result [facility] ([email or web address] [address] [place] [address], documented in this encounter Visit Diagnoses Diagnosis Essential (primary) hypertension Unspecified essential hypertension documented in this encounter Additional Health Concerns Infection Onset Date Last Indicated Resolved Time 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
--- OUTSIDE RECORDS SUMMARY | 2025-04-25 07:18 | XMS_ITS | Encounter Summary ---
Author Organization [employer] Address [address] [place] [address] Care Team Providers Care Millwright Name Role Phone Lauren Garcia MD Primary Care Provider + Encounter Details Date Type Department Care Team (Late st Contact Info) Description 06/01/2024 Lab Requisition [facility] - Main Lab 299 [facility] [place] [address] Lauren Garcia MD 819 [facility] 1 [place], [place] [phone] Altered mental status, unspecified; Urinary tract infection, [...] reflex microscopic (05/31/2024 2:00 PM EST) Specific [place] Urine 1.024 1.003 - 1.030 LAB URINALYSIS - AUTOMATED METHOD 06/01/2024 11:26 AM [facility] pH, Urine 5.5 5.0 - 8.0 pH LAB URINALYSIS - AUTOMATED METHOD 06/01/2024 11:26 AM [facility] Leukocytes, Urine Small(A) Negative LAB URINALYSIS - AUTOMATED METHOD 06/01/2024 11:26 AM [facility] Nitrite, Urine Positive(A) Negative LAB URINALYSIS - AUTOMATED METHOD 06/01/2024 11:26 AM [facility] Protein, Urine Trace <=Trace mg/dL LAB URINALYSIS - AUTOMATED METHOD 06/01/2024 11:26 AM [facility] Glucose, Urine Negative Negative mg/dL LAB URINALYSIS - AUTOMATED METHOD 06/01/2024 11:26 AM [facility] Ketones, Urine Trace(A) Negative mg/dL LAB URINALYSIS - AUTOMATED METHOD 06/01/2024 11:26 AM [facility] Urobilinogen , Urine 1.0 0.2 - 1.0 mg/dL LAB URINALYSIS - AUTOMATED METHOD 06/01/2024 11:26 AM [facility] Bilirubin, Urine Negative Negative LAB URINALYSIS - AUTOMATED METHOD 06/01/2024 11:26 AM [facility] Blood, Urine Negative Negative LAB URINALYSIS - AUTOMATED METHOD 06/01/2024 11:26 AM [facility] RBC, Urine 2.0 0 - 4 /HPF LAB URINALYSIS - AUTOMATED METHOD 06/01/2024 11:26 AM [facility] WBC, Urine 8.0(H) 0 - 4 /HPF LAB URINALYSIS - AUTOMATED METHOD 06/01/2024 11:26 AM [facility] Squamous Epithelial, Urine 10 0 - 60 /LPF LAB URINALYSIS - AUTOMATED METHOD 06/01/2024 11:26 AM EST [facility] Crystals, Urine MOD CALCIUM OXALATE /LPF LAB URINALYSIS - AUTOMATED METHOD 06/01/2024 11:26 AM [facility] Bacteria, Urine Many(A) Negative /HPF LAB URINALYSIS - AUTOMATED METHOD 06/01/2024 11:26 AM [facility] Hyaline Casts, Urine 0.0 0 - 3 /LPF LAB URINALYSIS - AUTOMATED METHOD 06/01/2024 11:26 AM [facility] Urine Urine specimen obtained by clean catch procedure / Unknown Non-blood Collection / Unknown 05/31/2024 2:00 PM EST 06/01/2024 11:04 AM EST Lauren Garcia MD LAB URINE ORDERABLES Fin al Result [facility] [address] [place] [address], * (ABNORMAL) Culture urine (05/31/2024 2:00 PM EST) Culture, Urine >100,000 CFU/mL Escherichia coli(A) JULISSA 06/03/2024 9:53 AM [facility] Urine Urine specimen obtained [...] ORDERABLES Final Result [facility] ([facility]) [facility] [address] [place] [address], documented in this encounter Visit Diagnoses Diagnosis Altered mental status, unspecified Urinary tract infection, site not specified documented in this encounter Additional Health Concerns Infection Onset Date Last Indicated Resolved Time 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
--- OUTSIDE RECORDS SUMMARY | 2025-04-25 07:18 | XMS_ITS | Encounter Summary ---
Author Organization [employer] Address [address] [place] [address] Care Team Providers Care Welt Treater Name Role Phone Lauren Garcia MD Primary Care Provider + Encounter Details Date Type Department Care Team (Late st Contact Info) Description 06/06/2024 Lab Requisition [facility] - Main Lab 299 [facility] [place] [address] Lauren Garcia MD [address] [facility] 1 [place], [place] [phone] Vitamin D deficiency, unspecified; Essential (primary) hypertension [...] * (ABNORMAL) Magnesium (06/06/2024 8:50 AM EST) [facility] Magnesium 1.6(L) 1.9 - 2.6 mg/dL LAB CHEMISTRY METHOD 06/06/2024 4:25 PM EST [facility] Blood Venous blood specimen / Unknown Venipuncture / Unknown 06/06/2024 8:50 AM EST 06/06/2024 11:43 AM EST Lauren Garcia MD LAB BLOOD ORDERABLES Fin al Result Performing Organization Address City/[facility]/ZIP Co de Phone Number [facility] [address] [place] [address], * Folate (06/06/2024 8:50 AM EST) [facility] Folate 8.9 2.8 - 17.0 ng/ml LAB CHEMISTRY METHOD 06/06/2024 4:44 PM EST [facility] Blood Venous blood specimen / Unknown Venipuncture / Unknown 06/06/2024 8:50 AM EST 06/06/2024 11:43 AM EST Lauren Garcia MD LAB BLOOD ORDERABLES Fin al Result [facility] [address] [place] [address], * Vitamin B12 (06/06/2024 8:50 AM EST) [facility] Vitamin B-12 678 250 - 900 pcg/mL LAB CHEMISTRY METHOD 06/06/2024 4:44 PM EST [facility] Blood Venous blood specimen / Unknown Venipuncture / Unknown 06/06/2024 8:50 AM EST 06/06/2024 11:43 AM EST Lauren Garcia MD LAB BLOOD ORDERABLES Fin al Result Performing Organization Address [facility]/ZIP Co de Phone Number [facility] [address] [place] [address], [place] [phone] * Vitamin D 25 hydroxy (06/06/2024 8:50 AM EST) Pathologist [facility] Vit D, 25-Hydroxy 36.0 30.0 - 80.0 ng/mL LAB CHEMISTRY METHOD 06/06/2024 4:22 PM [facility] Blood Venous blood specimen / Unknown Venipuncture / Unknown 06/06/2024 8:50 AM EST 06/06/2024 11:43 AM EST Lauren Garcia MD LAB BLOOD ORDERABLES Fin al Result Performing Organization Address [facility] Co de Phone Number [facility] [address] [place] [address], [place] [phone] * (ABNORMAL) Comprehensive metabolic panel (06/06/2024 8:50 AM EST) [facility] Sodium 138 133 - 145 mmol/L LAB CHEMISTRY METHOD 06/06/2024 5:02 PM [facility] Potassium 4.3 3.5 - 5.5 mmol/L LAB CHEMISTRY METHOD 06/06/2024 5:02 PM [facility] Comment:Hemolysis present Chloride 106 96 - 110 mmol/L LAB CHEMISTRY METHOD 06/06/2024 5:02 PM [facility] CO2 20(L) 21 - 32 mmol/L LAB CHEMISTRY METHOD 06/06/2024 5:02 PM [facility] Anion Gap 12(H) 3 - 11 LAB CHEMISTRY METHOD 06/06/2024 5:02 PM [facility] Glucose 104(H) 70 - 100 mg/dL LAB CHEMISTRY METHOD 06/06/2024 5:02 PM [facility] BUN 32(H) 5 - 25 mg/dL LAB CHEMISTRY METHOD 06/06/2024 5:02 PM [facility] Comment:Results verified by repeat testing Creatinine 2.05(H) 0.50 - 1.10 mg/dL LAB CHEMISTRY METHOD 06/06/2024 5:02 PM [facility] Comment:Results verified by repeat testing eGFR 23(L) >=60 mL/min/1. 73m2 LAB CHEMISTRY METHOD 06/06/2024 5:02 PM [facility] Comment:Calculation based on the Chronic Kidney Disease Epidemiology Collaboration (CKD-EPI) equation refit without adjustment for race. BUN/Creatinine Ratio 15.6 LAB CHEMISTRY METHOD 06/06/2024 5:02 PM [facility] Calcium 9.5 8.5 - 10.5 mg/dL LAB CHEMISTRY METHOD 06/06/2024 5:02 PM [facility] AST (SGOT) 29 10 - 42 unit/L LAB CHEMISTRY METHOD 06/06/2024 5:02 PM [facility] Comment:Hemolysis present ALT (SGPT) 19 10 - 60 unit/L LAB CHEMISTRY METHOD 06/06/2024 5:02 PM [facility] Alkaline Phosphatase 96 42 - 121 unit/L LAB CHEMISTRY METHOD 06/06/2024 5:02 PM [facility] Total Protein 6.2 6.0 - 8.0 g/dL LAB CHEMISTRY METHOD 06/06/2024 5:02 PM [facility] Albumin 2.8(L) 3.2 - 5.0 g/dL LAB CHEMISTRY METHOD 06/06/2024 5:02 PM [facility] Total Bilirubin 1.2 0.0 - 1.4 mg/dL LAB CHEMISTRY METHOD 06/06/2024 5:02 PM [facility] Blood Venous blood specimen / Unknown Venipuncture / Unknown 06/06/2024 8:50 AM EST 06/06/2024 11:43 AM EST us Lauren Garcia MD LAB BLOOD ORDERABLES Fin al Result [facility] [address] [place] [address], * (ABNORMAL) Complete blood count (06/06/2024 8:50 AM EST) [facility] WBC 8.2 4.8 - 10.8 K/mcL LAB HEMETOLOGY METHOD 06/06/2024 12:50 PM [facility] RBC 4.40 3.80 - 4.80 M/mcL LAB HEMETOLOGY METHOD 06/06/2024 12:50 PM [facility] Hemoglobin 11.2(L) 11.5 - 16.0 g/dL LAB HEMETOLOGY METHOD 06/06/2024 12:50 PM [facility] Hematocrit 38.7 35.0 - 47.0 % LAB HEMETOLOGY METHOD 06/06/2024 12:50 PM [facility] MCV 89.0 79.0 - 98.0 FL LAB HEMETOLOGY METHOD 06/06/2024 12:50 PM [facility] MCH 25.7(L) 27.0 - 32.0 pcg LAB HEMETOLOGY METHOD 06/06/2024 12:50 PM [facility] MCHC 28.9(L) 32.0 - 37.0 g/dL LAB HEMETOLOGY METHOD 06/06/2024 12:50 PM [facility] RDW 16.6(H) 11.0 - 15.0 % LAB HEMETOLOGY METHOD 06/06/2024 12:50 PM [facility] Platelets 195 130 - 400 K/mcL LAB HEMETOLOGY METHOD 06/06/2024 12:50 PM EST [facility] MPV 12.2(H) 7.0 - 11.0 FL LAB HEMETOLOGY METHOD 06/06/2024 12:50 PM EST [facility] NRBC 0.0 <1.0 % LAB HEMETOLOG METHOD 06/06/2024 12:50 PM EST [facility] NRBC Absolute 0.00 <0.10 K/mcL LAB HEMETOLOGY METHOD 06/06/2024 12:50 PM EST [facility] Blood Venous blood specimen / Unknown Venipuncture / Unknown 06/06/2024 8:50 AM EST 06/06/2024 11:43 AM EST us Lauren Garcia MD LAB BLOOD ORDERABLES Fin al Result [facility] [address] [place] [address], documented in this encounter Visit Diagnoses Diagnosis Vitamin D deficiency, unspecified Essential (primary) hypertension Unspecified essential hypertension documented in this encounter Additional Health Concerns Infection Onset Date Last Indicated Resolved Time VRE 05/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
--- OUTSIDE RECORDS SUMMARY | 2025-04-25 07:18 | XMS_ITS | Encounter Summary ---
Author Organization [employer] Address [address] [place] [address] Care Team Providers Care Lambskin Trimmer Name Role Phone Lauren Garcia MD Primary Care Provider + Encounter Details Date Type Department Care Team (Late st Contact Info) Description 04/15/2024 Lab Requisition [facility] - Main Lab [address] [facility] [place] [address] Lauren Garcia MD [address] [facility] 1 [place], [place] [phone] Vitamin D deficiency, unspecified; Pathological fracture, right [...] LAB CHEMISTRY METHOD 04/15/2024 10:58 AM EST [facility] Blood Venous blood specimen / Unknown Venipuncture / Unknown 04/15/2024 7:06 AM EST 04/15/2024 8:53 AM EST Lauren Garcia MD LAB BLOOD ORDERABLES Fin al Result [facility] [address] [place] [address], * Vitamin B12 (04/15/2024 7:06 AM EST) Vitamin B-12 315 250 - 900 pcg/mL LAB CHEMISTRY METHOD 04/15/2024 11:36 AM EST [facility] Blood Venous blood specimen / Unknown Venipuncture / Unknown 04/15/2024 7:06 AM EST 04/15/2024 8:53 AM EST Lauren Garcia MD LAB BLOOD ORDERABLES Fin al Result Performing Organization Address [facility]/ZIP Co de Phone Number [facility] [address] [place] [address], * (ABNORMAL) Magnesium (04/15/2024 7:06 AM EST) Pathologist [facility] Magnesium 1.8(L) 1.9 - 2.6 mg/dL LAB CHEMISTRY METHOD 04/15/2024 10:58 AM EST [facility] Blood Venous blood specimen / Unknown Venipuncture / Unknown 04/15/2024 7:06 AM EST 04/15/2024 8:53 AM EST Lauren Garcia MD LAB BLOOD ORDERABLES Fin al Result Performing Organization Address [facility]/ZIP Co de Phone Number [facility] [address] [place] [address], * Folate (04/15/2024 7:06 AM EST) Pathologist [facility] Folate 12.3 2.8 - 17.0 ng/ml LAB CHEMISTRY METHOD 04/15/2024 11:36 AM EST [facility] Blood Venous blood specimen / Unknown Venipuncture / Unknown 04/15/2024 7:06 AM EST 04/15/2024 8:53 AM EST Lauren Garcia MD LAB BLOOD ORDERABLES Fin al Result Performing Organization Address [facility]/ZIP Co de Phone Number [facility] [address] [place] [address], * Thyroid stimulating hormone (04/15/2024 7:06 AM EST) TSH 0.65 0.40 - 4.00 mcIU/mL LAB CHEMISTRY METHOD 04/15/2024 10:58 AM EST [facility] Blood Venous blood specimen / Unknown Venipuncture / Unknown 04/15/2024 7:06 AM EST 04/15/2024 8:53 AM EST us Lauren Garcia MD LAB BLOOD ORDERABLES Fin al Result [facility] [address] [place] [address], * (ABNORMAL) Basic metabolic panel (04/15/2024 7:06 AM EST) Sodium 143 133 - 145 mmol/L LAB CHEMISTRY METHOD 04/15/2024 11:[address] [facility] Potassium 4.3 3.5 - 5.5 mmol/L LAB CHEMISTRY METHOD 04/15/2024 11:[address] [facility] Chloride 111(H) 96 - 110 mmol/L LAB CHEMISTRY METHOD 04/15/2024 11:[address] [facility] CO2 22 21 - 32 mmol/L LAB CHEMISTRY METHOD 04/15/2024 11:[address] [facility] Anion Gap 10 3 - 11 LAB CHEMISTRY METHOD 04/15/2024 11:[address] [facility] Glucose 102(H) 70 - 100 mg/dL LAB CHEMISTRY METHOD 04/15/2024 11:[address] [facility] BUN 35(H) 5 - 25 mg/dL LAB CHEMISTRY METHOD 04/15/2024 11:[address] [facility] Creatinine 1.10 0.50 - 1.10 mg/dL LAB CHEMISTRY METHOD 04/15/2024 11:[address] [facility] eGFR 49(L) >=60 mL/min/1. 73m2 LAB CHEMISTRY METHOD 04/15/2024 11:[address] [facility] Comment:Calculation based on the Chronic Kidney Disease Epidemiology Collaboration (CKD-EPI) equation refit without adjustment for race. BUN/Creatinine Ratio 31.8 LAB CHEMISTRY METHOD 04/15/2024 11:36 AM EST [facility] Calcium 9.9 8.5 - 10.5 mg/dL LAB CHEMISTRY METHOD 04/15/2024 11:[address] [facility] Blood Venous blood specimen / Unknown Venipuncture / Unknown 04/15/2024 7:06 AM EST 04/15/2024 8:53 AM EST us Lauren Garcia MD LAB BLOOD ORDERABLES Fin al Result [facility] [address] [place] [address], * (ABNORMAL) Complete blood count (04/15/2024 7:06 AM EST) WBC 6.8 4.8 - 10.8 K/mcL LAB HEMETOLOGY METHOD 04/15/2024 10:[address] [facility] RBC 3.80 3.80 - 4.80 M/[facility] LAB HEMETOLOGY METHOD 04/15/2024 10:[address] [facility] Hemoglobin 10.0(L) 11.5 - 16.0 g/dL LAB HEMETOLOGY METHOD 04/15/2024 10:[address] [facility] Hematocrit 32.7(L) 35.0 - 47.0 % LAB HEMETOLOGY METHOD 04/15/2024 10:[address] [facility] MCV 86.5 79.0 - 98.0 FL LAB HEMETOLOGY METHOD 04/15/2024 10:[address] [facility] MCH 26.5(L) 27.0 - 32.0 pcg LAB HEMETOLOGY METHOD 04/15/2024 10:[address] [facility] MCHC 30.6(L) 32.0 - 37.0 g/dL LAB HEMETOLOGY METHOD 04/15/2024 10:32 AM EST [facility] RDW 14.4 11.0 - 15.0 % LAB HEMETOLOGY METHOD 04/15/2024 10:32 AM EST [facility] Platelets 187 130 - 400 K/mcL LAB HEMETOLOGY METHOD 04/15/2024 10:[address] [facility] MPV 12.2(H) 7.0 - 11.0 FL LAB HEMETOLOGY METHOD 04/15/2024 10:32 AM EST [facility] NRBC 0.0 <1.0 % LAB HEMETOLOGY METHOD 04/15/2024 10:[address] [facility] NRBC Absolute 0.00 <0.10 K/mcL LAB HEMETOLOGY METHOD 04/15/2024 10:[address] [facility] Blood Venous blood specimen / Unknown Venipuncture / Unknown 04/15/2024 7:06 AM EST 04/15/2024 8:53 AM EST Lauren Garcia MD LAB BLOOD ORDERABLES Fin al Result [facility] [address] [place] [address], documented in this encounter Visit Diagnoses Diagnosis Vitamin D deficiency, unspecified Pathological fracture, right tibia, initial encounter for fracture Hypothyroidism, unspecified Essential (primary) hypertension Unspecified essential hypertension documented in this encounter Additional Health Concerns Infection Onset Date Last Indicated Resolved Time VRE 05/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
--- OUTSIDE RECORDS SUMMARY | 2025-04-25 07:18 | XMS_ITS | Clinical Summary ---
Author Organization [address] Address [address] [place] [phone] Phone Care Team Providers Care Vp Product Marketing Name Role Phone Elder, Lauren Salvador MD [...] Last Indicated VRE 05/08/2024 05/08/2024 Insurance MEDICARE [facility] Care Teams Vp Product Marketing Relationship Specialty Start Date End Date Lauren Garcia MD [address] [phone] PCP - General Family Medicine 04/15/24
--- OUTSIDE RECORDS SUMMARY | 2025-04-25 07:18 | XMS_ITS | Encounter Summary ---
Author Organization [employer] [facility] Address [address] [place] [address] Care Team Providers Care Slime Plant Operator Name Role Phone Lauren Garcia MD Primary Care Provider + Encounter Details Date Type Department Care Team (Late st Contact Info) Description 06/25/2024 Lab Requisition [facility] - Main Lab 299 [facility] [place] [address] Lauren Garcia MD [address] [phone] Essential (primary) hypertension Social History Tobacco Use [...] LAB CHEMISTRY METHOD 06/27/2024 1:02 PM EST [facility] Potassium 4.0 3.5 - 5.5 mmol/L LAB CHEMISTRY METHOD 06/27/2024 1:02 PM EST [facility] Chloride 110 96 - 110 mmol/L LAB CHEMISTRY METHOD 06/27/2024 1:02 PM [facility] CO2 21 21 - 32 mmol/L LAB CHEMISTRY METHOD 06/27/2024 1:02 PM [facility] Anion Gap 11 3 - 11 LAB CHEMISTRY METHOD 06/27/2024 1:02 PM [facility] Glucose 86 70 - 100 mg/dL LAB CHEMISTRY METHOD 06/27/2024 1:02 PM [facility] BUN 13 5 - 25 mg/dL LAB CHEMISTRY METHOD 06/27/2024 1:02 PM [facility] Creatinine 1.04 0.50 - 1.10 mg/dL LAB CHEMISTRY METHOD 06/27/2024 1:02 PM [facility] eGFR 52(L) >=60 mL/min/1. 73m2 LAB CHEMISTRY METHOD 06/27/2024 1:02 PM [facility] Comment:Calculation based on the Chronic Kidney Disease Epidemiology Collaboration (CKD-EPI) equation refit without adjustment for race. BUN/Creatinine Ratio 12.5 LAB CHEMISTRY METHOD 06/27/2024 1:02 PM [facility] Calcium 9.9 8.5 - 10.5 mg/dL LAB CHEMISTRY METHOD 06/27/2024 1:02 PM [facility] Blood Venous blood specimen / Unknown Venipuncture / Unknown 06/27/2024 7:52 AM EST 06/27/2024 11:50 AM EST us Lauren Garcia MD LAB BLOOD ORDERABLES Fin al Result [facility] [address] [place] [address], * (ABNORMAL) Complete blood count (06/27/2024 7:52 AM EST) WBC 5.2 4.8 - 10.8 K/mcL LAB HEMETOLOGY METHOD 06/27/2024 1:02 PM [facility] RBC 4.30 3.80 - 4.80 M/mcL LAB HEMETOLOGY METHOD 06/27/2024 1:02 PM [facility] Hemoglobin 11.0(L) 11.5 - 16.0 g/dL LAB HEMETOLOGY METHOD 06/27/2024 1:02 PM [facility] Hematocrit 38.7 35.0 - 47.0 % LAB HEMETOLOGY METHOD 06/27/2024 1:02 PM [facility] MCV 90.6 79.0 - 98.0 FL LAB HEMETOLOGY METHOD 06/27/2024 1:02 PM [facility] MCH 25.8(L) 27.0 - 32.0 pcg LAB HEMETOLOGY METHOD 06/27/2024 1:02 PM [facility] MCHC 28.4(L) 32.0 - 37.0 g/dL LAB HEMETOLOGY METHOD 06/27/2024 1:02 PM [facility] RDW 17.4(H) 11.0 - 15.0 % LAB HEMETOLOGY METHOD 06/27/2024 1:02 PM [facility] Platelets 330 130 - 400 K/mcL LAB HEMETOLOGY METHOD 06/27/2024 1:02 PM [facility] MPV 12.0(H) 7.0 - 11.0 FL LAB HEMETOLOGY METHOD 06/27/2024 1:02 PM [facility] NRBC 0.0 <1.0 % LAB HEMETOLOGY METHOD 06/27/2024 1:02 PM [facility] NRBC Absolute 0.00 <0.10 K/mcL LAB HEMETOLOGY METHOD 06/27/2024 1:02 PM [facility] Blood Venous blood specimen / Unknown Venipuncture / Unknown 06/27/2024 7:52 AM EST 06/27/2024 11:50 AM EST us Lauren Garcia MD LAB BLOOD ORDERABLES Fin al Result [facility] ([facility] [address] [place] [address], documented in this encounter Visit Diagnoses Diagnosis Essential (primary) hypertension Unspecified essential hypertension documented in this encounter Additional Health Concerns Infection Onset Date Last Indicated Resolved Time VRE 05/08/2024 05/08/2024 documented as of this encounter Care Teams Slime Plant Operator Relationship Specialty Start Date End Date Lauren Garcia MD [address] [place] [phone] PCP - General Family Medicine 04/15/24 documented as of this encounter
--- OUTSIDE RECORDS SUMMARY | 2025-04-25 07:18 | XMS_ITS | Encounter Summary ---
Author Organization [facility] Address [address] [place] [address] Care Team Providers Care Helicopter Repairer Name Role Phone Lauren Garcia MD Primary Care Provider + Encounter Details Date Type Department Care Team (Late st Contact Info) Description 06/23/2024 Lab Requisition [facility] - Main Lab 299 [facility] [place] [address] Lauren Garcia MD [address] [phone] Chronic kidney disease, unspecified Social History Tobacco [...] AM EST) WBC 5.1 4.8 - 10.8 K/[facility] LAB HEMETOLOGY METHOD 06/23/2024 11:34 AM EST [facility] RBC 4.10 3.80 - 4.80 M/[facility] LAB HEMETOLOGY METHOD 06/23/2024 11:34 AM EST [facility] Hemoglobin 10.6(L) 11.5 - 16.0 g/dL LAB HEMETOLOGY METHOD 06/23/2024 11:34 AM EST [facility] Hematocrit 36.1 35.0 - 47.0 % LAB HEMETOLOGY METHOD 06/23/2024 11:[address] [facility] MCV 87.8 79.0 - 98.0 FL LAB HEMETOLOGY METHOD 06/23/2024 11:[address] [facility] MCH 25.8(L) 27.0 - 32.0 pcg LAB HEMETOLOGY METHOD 06/23/2024 11:[address] [facility] MCHC 29.4(L) 32.0 - 37.0 g/dL LAB HEMETOLOGY METHOD 06/23/2024 11:[address] [facility] RDW 16.7(H) 11.0 - 15.0 % LAB HEMETOLOGY METHOD 06/23/2024 11:[address] [facility] Platelets 267 130 - 400 K/mcL LAB HEMETOLOGY METHOD 06/23/2024 11:[address] [facility] MPV 12.4(H) 7.0 - 11.0 FL LAB HEMETOLOGY METHOD 06/23/2024 11:[address] [facility] NRBC 0.0 <1.0 % LAB HEMETOLOGY METHOD 06/23/2024 11:[address] [facility] NRBC Absolute 0.00 <0.10 K/mcL LAB HEMETOLOGY METHOD 06/23/2024 11:[address] [facility] Blood Venous blood specimen / Unknown Venipuncture / Unknown 06/23/2024 8:46 AM EST 06/23/2024 10:45 AM EST us Lauren Garcia MD LAB BLOOD ORDERABLES Fin al Result [facility] [address] [place] [address], documented in this encounter Visit Diagnoses Diagnosis Chronic kidney disease, unspecified documented in this encounter Additional Health Concerns Infection Onset Date Last Indicated Resolved Time VRE 05/08/2024 05/08/2024 documented as of this encounter Care Teams Helicopter Repairer Relationship Specialty Start Date End Date Lauren Garcia MD [address] [phone] PCP - General Family Medicine 04/15/24 documented as of this encounter
--- OUTSIDE RECORDS SUMMARY | 2025-04-25 07:18 | XMS_ITS | Encounter Summary ---
Author Organization [facility] Address [address] [place] [address] Care Team Providers Care Respiratory Care Faculty Name Role Phone Lauren Garcia MD Primary Care Provider + Encounter Details Date Type Department Care Team (Late st Contact Info) Description 05/23/2024 Lab Requisition [facility] - Main Lab 299 [facility] [place] [address] Lauren Garcia MD [address] [phone] Anemia, unspecified Social History Tobacco Use Types [...] mmol/L LAB CHEMISTRY METHOD 05/23/2024 2:24 PM [facility] CO2 25 21 - 32 mmol/L LAB CHEMISTRY METHOD 05/23/2024 2:24 PM [facility] Anion Gap 7 3 - 11 LAB CHEMISTRY METHOD 05/23/2024 2:24 PM [facility] Glucose 79 70 - 100 mg/dL LAB CHEMISTRY METHOD 05/23/2024 2:24 PM [facility] BUN 20 5 - 25 mg/dL LAB CHEMISTRY METHOD 05/23/2024 2:24 PM [facility] Creatinine 0.96 0.50 - 1.10 mg/dL LAB CHEMISTRY METHOD 05/23/2024 2:24 PM [facility] eGFR 57(L) >=60 mL/min/1. 73m2 LAB CHEMISTRY METHOD 05/23/2024 2:24 PM [facility] Comment:Calculation based on the Chronic Kidney Disease Epidemiology Collaboration (CKD-EPI) equation refit without adjustment for race. BUN/Creatinine Ratio 20.8 LAB CHEMISTRY METHOD 05/23/2024 2:24 PM [facility] Calcium 9.6 8.5 - 10.5 mg/dL LAB CHEMISTRY METHOD 05/23/2024 2:24 PM [facility] Blood Venous blood specimen / Unknown Venipuncture / Unknown 05/23/2024 7:02 AM EST 05/23/2024 12:18 PM EST us Lauren Garcia MD LAB BLOOD ORDERABLES Fin al Result [facility] [address] [place] [address], * (ABNORMAL) Complete blood count (05/23/2024 7:02 AM EST) WBC 5.6 4.8 - 10.8 K/[facility] LAB HEMETOLOGY METHOD 05/23/2024 1:39 PM [facility] RBC 3.80 3.80 - 4.80 M/mcL LAB HEMETOLOGY METHOD 05/23/2024 1:39 PM [facility] Hemoglobin 9.8(L) 11.5 - 16.0 g/dL LAB HEMETOLOGY METHOD 05/23/2024 1:39 PM [facility] Hematocrit 33.7(L) 35.0 - 47.0 % LAB HEMETOLOGY METHOD 05/23/2024 1:39 PM [facility] MCV 87.8 79.0 - 98.0 FL LAB HEMETOLOGY METHOD 05/23/2024 1:39 PM [facility] MCH 25.5(L) 27.0 - 32.0 pcg LAB HEMETOLOGY METHOD 05/23/2024 1:39 PM [facility] MCHC 29.1(L) 32.0 - 37.0 g/dL LAB HEMETOLOGY METHOD 05/23/2024 1:39 PM [facility] RDW 14.9 11.0 - 15.0 % LAB HEMETOLOGY METHOD 05/23/2024 1:39 PM [facility] Platelets 158 130 - 400 K/mcL LAB HEMETOLOGY METHOD 05/23/2024 1:39 PM [facility] MPV 11.0 7.0 - 11.0 FL LAB HEMETOLOGY METHOD 05/23/2024 1:39 PM [facility] NRBC 0.0 <1.0 % LAB HEMETOLOGY METHOD 05/23/2024 1:39 PM [facility] NRBC Absolute 0.00 <0.10 K/mcL LAB HEMETOLOGY METHOD 05/23/2024 1:39 PM [facility] Blood Venous blood specimen / Unknown Venipuncture / Unknown 05/23/2024 7:02 AM EST 05/23/2024 12:18 PM EST Lauren Garcia MD LAB BLOOD ORDERABLES Fin al Result [facility] ([facility]) [facility] [address] [place] [address], documented in this encounter Visit Diagnoses Diagnosis Anemia, unspecified documented in this encounter Additional Health Concerns Infection Onset Date Last Indicated Resolved Time VRE 05/08/2024 05/08/2024 documented as of this encounter Care Teams Respiratory Care Faculty Relationship Specialty Start Date End Date Lauren Garcia MD [address] [phone] PCP - General Family Medicine 04/15/24 documented as of this encounter
--- OUTSIDE RECORDS SUMMARY | 2025-04-25 07:18 | XMS_ITS | Encounter Summary ---
Author Organization [employer] Address [address] [place] [address] Care Team Providers Care Ship'S Engineer Name Role Phone Lauren Garcia MD Primary Care Provider + Encounter Details Date Type Department Care Team (Late st Contact Info) Description 05/11/2024 Lab Requisition [facility] - Main Lab [address] [facility] [place] [address] Lauren Garcia MD [address] [facility] 1 [place], [place] [id number] Chronic kidney disease, unspecified; Essential (primary) hypertension; [...] mmol/L LAB CHEMISTRY METHOD 05/11/2024 10:09 AM [facility] Potassium 5.0 3.5 - 5.5 mmol/L LAB CHEMISTRY METHOD 05/11/2024 10:09 AM [facility] Chloride 105 96 - 110 mmol/L LAB CHEMISTRY METHOD 05/11/2024 10:09 AM [facility] CO2 25 21 - 32 mmol/L LAB CHEMISTRY METHOD 05/11/2024 10:09 AM [facility] Anion Gap 6 3 - 11 LAB CHEMISTRY METHOD 05/11/2024 10:09 AM [facility] Glucose 130(H) 70 - 100 mg/dL LAB CHEMISTRY METHOD 05/11/2024 10:09 AM [facility] BUN 24 5 - 25 mg/dL LAB CHEMISTRY METHOD 05/11/2024 10:09 AM [facility] Creatinine 1.13(H) 0.50 - 1.10 mg/dL LAB CHEMISTRY METHOD 05/11/2024 10:09 AM [facility] eGFR 47(L) >=60 mL/min/1. 73m2 LAB CHEMISTRY METHOD 05/11/2024 10:09 AM [facility] Comment:Calculation based on the Chronic Kidney Disease Epidemiology Collaboration (CKD-EPI) equation refit without adjustment for race. BUN/Creatinine Ratio 21.2 LAB CHEMISTRY METHOD 05/11/2024 10:09 AM [facility] Calcium 9.7 8.5 - 10.5 mg/dL LAB CHEMISTRY METHOD 05/11/2024 10:09 AM [facility] Blood Venous blood specimen / Unknown Venipuncture / Unknown 05/11/2024 6:33 AM EST 05/11/2024 9:28 AM EST us Lauren Garcia MD LAB BLOOD ORDERABLES Fin al Result [facility] [address] [place] [address], * (ABNORMAL) Complete blood count (05/11/2024 6:33 AM EST) [facility] WBC 9.1 4.8 - 10.8 K/mcL LAB HEMETOLOGY METHOD 05/11/2024 9:52 AM [facility] RBC 4.70 3.80 - 4.80 M/mcL LAB HEMETOLOGY METHOD 05/11/2024 9:52 AM [facility] Hemoglobin 11.6 11.5 - 16.0 g/dL LAB HEMETOLOGY METHOD 05/11/2024 9:52 AM [facility] Hematocrit 40.5 35.0 - 47.0 % LAB HEMETOLOGY METHOD 05/11/2024 9:52 AM [facility] MCV 87.1 79.0 - 98.0 FL LAB HEMETOLOGY METHOD 05/11/2024 9:52 AM [facility] MCH 24.9(L) 27.0 - 32.0 pcg LAB HEMETOLOGY METHOD 05/11/2024 9:52 AM [facility] MCHC 28.6(L) 32.0 - 37.0 g/dL LAB HEMETOLOGY METHOD 05/11/2024 9:52 AM [facility] RDW 14.3 11.0 - 15.0 % LAB HEMETOLOGY METHOD 05/11/2024 9:52 AM [facility] Platelets 225 130 - 400 K/mcL LAB HEMETOLOGY METHOD 05/11/2024 9:52 AM [facility] MPV 12.1(H) 7.0 - 11.0 FL LAB HEMETOLOGY METHOD 05/11/2024 9:52 AM [facility] NRBC 0.0 <1.0 % LAB HEMETOLOGY METHOD 05/11/2024 9:52 AM [facility] NRBC Absolute 0.00 <0.10 K/mcL LAB HEMETOLOGY METHOD 05/11/2024 9:52 AM EST [facility] Blood Venous blood specimen / Unknown Venipuncture / Unknown 05/11/2024 6:33 AM EST 05/11/2024 9:28 AM EST us Lauren Garcia MD LAB BLOOD ORDERABLES Fin al Result [facility] [address] [place] [address], documented in this encounter Visit Diagnoses Diagnosis Chronic kidney disease, unspecified Essential (primary) hypertension Unspecified essential hypertension Displaced comminuted fracture of shaft of right tibia, subsequent encounter for closed fracture with routine healing documented in this encounter Additional Health Concerns Infection Onset Date Last Indicated Resolved Time VRE 05/08/2024 05/08/2024 documented as of this encounter Care Teams Ship'S Engineer Relationship Specialty Start Date End Date Lauren Garcia MD [address] [address] PCP - General Family Medicine 04/15/24 documented as of this encounter
--- OUTSIDE RECORDS SUMMARY | 2025-04-25 07:18 | XMS_ITS | Clinical Summary ---
Author Organization [facility] Address [address] [place] [address] Phone Care Team Providers Care Proposal Specialist Name Role Phone Alfa Garrido Primary Care Provider [phone] Encounters Date Type Department Care Team Description 04/10/2025 Telephone [facility] [address] [place] [phone] Vladimir Edward MA 04/04/2025 Documentation Only [facility] [address] [place] [phone] Vladimir Edward MA from Last 3 Months Social History Tobacco Use Types Packs/Day Years Used Date Smoking Tobacco: Never Assessed Comments Unknown Sex and Gender Information Value Date Recorded Sex Assigned at Not on file Legal Sex Female 12:49 PM EST Gender Identity Not on file Sexual Orientation Not on file Plan of Treatment Health Maintenance Due Date Last Done Comments Influenza Vaccine (#1) 2025 02/17/2007 Pneumococcal Vaccine: 50+ Years Completed 12/19/2015, 06/19/2015 Hepatitis B Vaccine Aged Out No longe r eligible based on patient's age to complete this topic Insurance Medicare Unicare Care Teams Proposal Specialist Relationship Specialty Start Date End Date Alfa Garrido [facility] [address] [place] [address] PCP - General 04/04/25
--- OUTSIDE RECORDS SUMMARY | 2025-04-25 07:18 | XMS_ITS | Encounter Summary ---
Author Organization [employer] [facility] Address [address] [place] [address] Care Team Providers Care Life Skills Teacher Name Role Phone Lauren Garcia MD Primary Care Provider + Encounter Details Date Type Department Care Team (Late st Contact Info) Description 05/13/2024 Lab Requisition [facility] - Main Lab [address] [facility] [place] [address] Lauren Garcia MD [address] [phone] Chronic kidney disease, unspecified; Essential (primary) hypertension [...] mmol/L LAB CHEMISTRY METHOD 05/16/2024 1:28 PM [facility] Anion Gap 8 3 - 11 LAB CHEMISTRY METHOD 05/16/2024 1:28 PM [facility] Glucose 83 70 - 100 mg/dL LAB CHEMISTRY METHOD 05/16/2024 1:28 PM [facility] BUN 24 5 - 25 mg/dL LAB CHEMISTRY METHOD 05/16/2024 1:28 PM [facility] Creatinine 1.17(H) 0.50 - 1.10 mg/dL LAB CHEMISTRY METHOD 05/16/2024 1:28 PM [facility] eGFR 45(L) >=60 mL/min/1. 73m2 LAB CHEMISTRY METHOD 05/16/2024 1:28 PM [facility] Comment:Calculation based on the Chronic Kidney Disease Epidemiology Collaboration (CKD-EPI) equation refit without adjustment for race. BUN/Creatinine Ratio 20.5 LAB CHEMISTRY METHOD 05/16/2024 1:28 PM [facility] Calcium 9.8 8.5 - 10.5 mg/dL LAB CHEMISTRY METHOD 05/16/2024 1:28 PM [facility] Blood Venous blood specimen / Unknown Venipuncture / Unknown 05/16/2024 6:18 AM EST 05/16/2024 10:47 AM EST us Lauren Garcia MD LAB BLOOD ORDERABLES Fin al Result [facility] [address] [place] [address], * (ABNORMAL) Complete blood count (05/16/2024 6:18 AM EST) WBC 6.2 4.8 - 10.8 K/[facility] METHOD 05/16/2024 1:43 PM [facility] RBC 4.00 3.80 - 4.80 M/mcL LAB HEMETOLOGY METHOD 05/16/2024 1:43 PM [facility] Hemoglobin 10.0(L) 11.5 - 16.0 g/dL LAB HEMETOLOGY METHOD 05/16/2024 1:43 PM [facility] Hematocrit 34.6(L) 35.0 - 47.0 % LAB HEMETOLOGY METHOD 05/16/2024 1:43 PM [facility] MCV 87.6 79.0 - 98.0 FL LAB HEMETOLOGY METHOD 05/16/2024 1:43 PM [facility] MCH 25.3(L) 27.0 - 32.0 pcg LAB HEMETOLOGY METHOD 05/16/2024 1:43 PM [facility] MCHC 28.9(L) 32.0 - 37.0 g/dL LAB HEMETOLOGY METHOD 05/16/2024 1:43 PM [facility] RDW 14.5 11.0 - 15.0 % LAB HEMETOLOGY METHOD 05/16/2024 1:43 PM [facility] Platelets 212 130 - 400 K/mcL LAB HEMETOLOGY METHOD 05/16/2024 1:43 PM [facility] MPV 12.0(H) 7.0 - 11.0 FL LAB HEMETOLOGY METHOD 05/16/2024 1:43 PM [facility] NRBC 0.0 <1.0 % LAB HEMETOLOGY METHOD 05/16/2024 1:43 PM [facility] NRBC Absolute 0.00 <0.10 K/mcL LAB HEMETOLOGY METHOD 05/16/2024 1:43 PM [facility] Blood Venous blood specimen / Unknown Venipuncture / Unknown 05/16/2024 6:18 AM EST 05/16/2024 10:47 AM EST us Lauren Garcia MD LAB BLOOD ORDERABLES Fin al Result [facility] [address] [place] [address], documented in this encounter Visit Diagnoses Diagnosis Chronic kidney disease, unspecified Essential (primary) hypertension Unspecified essential hypertension documented in this encounter Additional Health Concerns Infection Onset Date Last Indicated Resolved Time VRE 05/08/2024 05/08/2024 documented as of this encounter Care Teams Life Skills Teacher Relationship Specialty Start Date End Date Lauren Garcia MD [address] [address] PCP - General Family Medicine 04/15/24 documented as of this encounter
--- OUTSIDE RECORDS SUMMARY | 2025-04-25 07:18 | XMS_ITS | Encounter Summary ---
Author Organization [employer] [facility] Address [address] [place] [address] Care Team Providers Care Kiln Door Repairer Name Role Phone Lauren Garcia MD Primary Care Provider + Encounter Details Date Type Department Care Team (Late st Contact Info) Description 05/31/2024 Lab Requisition [facility] - Main Lab [address] [facility] [place] [address] Lauren Garcia MD [address] [facility] 1 [place], [place] [phone] Urinary tract infection, site not specified; Altered [...] reflex microscopic (05/30/2024 12:00 PM EST) Specific Gy[place]um Urine 1.019 1.003 - 1.030 LAB URINALYSIS - AUTOMATED METHOD 05/31/2024 10:47 AM [facility] pH, Urine 5.5 5.0 - 8.0 pH LAB URINALYSIS - AUTOMATED METHOD 05/31/2024 10:47 AM [facility] Leukocytes, Urine Large(A) Negative LAB URINALYSIS - AUTOMATED METHOD 05/31/2024 10:47 AM [facility] Nitrite, Urine Negative Negative LAB URINALYSIS - AUTOMATED METHOD 05/31/2024 10:47 AM [facility] Protein, Urine Trace <=Trace mg/dL LAB URINALYSIS - AUTOMATED METHOD 05/31/2024 10:47 AM [facility] Glucose, Urine Negative Negative mg/dL LAB URINALYSIS - AUTOMATED METHOD 05/31/2024 10:47 AM [facility] Ketones, Urine Negative Negative mg/dL LAB URINALYSIS - AUTOMATED METHOD 05/31/2024 10:47 AM [facility] Urobilinogen , Urine 1.0 0.2 - 1.0 mg/dL LAB URINALYSIS - AUTOMATED METHOD 05/31/2024 10:47 AM [facility] Bilirubin, Urine Negative Negative LAB URINALYSIS - AUTOMATED METHOD 05/31/2024 10:47 AM [facility] Blood, Urine Trace(A) Negative LAB URINALYSIS - AUTOMATED METHOD 05/31/2024 10:47 AM [facility] RBC, Urine 4.0 0 - 4 /HPF LAB URINALYSIS - AUTOMATED METHOD 05/31/2024 10:47 AM [facility] WBC, Urine 651.5(H) 0 - 4 /HPF LAB URINALYSIS - AUTOMATED METHOD 05/31/2024 10:47 AM [facility] Squamous Epithelial, Urine 74(H) 0 - 60 /LPF LAB URINALYSIS - AUTOMATED METHOD 05/31/2024 10:47 AM [facility] Crystals, Urine Light Calcium Oxalate /LPF 05/31/2024 10:47 AM EST [facility] Bacteria, Urine Many(A) Negative /HPF LAB URINALYSIS - AUTOMATED METHOD 05/31/2024 10:47 AM [facility] Hyaline Casts, Urine 3.0 0 - 3 /LPF LAB URINALYSIS - AUTOMATED METHOD 05/31/2024 10:47 AM [facility] Yeast, Urine Present(A) None /HPF 05/31/2024 10:47 AM [facility] Urine Urine specimen obtained by clean catch procedure / Unknown Non-blood Collection / Unknown 05/30/2024 12:00 PM EST 05/31/2024 9:02 AM EST us Lauren Garcia MD LAB URINE ORDERABLES Fin al Result [facility] [address] [place] [address], * (ABNORMAL) Culture urine (05/30/2024 12:00 PM EST) Culture, Urine >100,000 CFU/mL Escherichia coli(A) JULISSA 06/02/2024 8:13 AM [facility] Urine Urine specimen obtained by clean catch procedure / Unknown Non-blood Collection / Unknown 05/30/2024 12:00 PM EST 05/31/2024 9:02 AM EST [facility] - 06/02/2024 8:13 AM EST [...] MICROBIOLOGY - GENER AL ORDERABLES Final Result [facility] [address] [place] [address], documented in this encounter Visit Diagnoses Diagnosis Urinary tract infection, site not specified Altered mental status, unspecified documented in this encounter Additional Health Concerns Infection 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
[2025-04-25 07:52] LABS: Alanine Aminotransferase 13 U/L (0-31); Albumin Level 3.8 g/dL (3.5-5.0); Alkaline Phosphatase 85 U/L (39-117); Anion Gap 15 (12-20); Aspartate Amino Transferase 21 U/L (5-31); Blood Urea Nitrogen 50 mg/dL (9-16); Calcium 10.8 mg/dL (8.4-10.2); Carbon Dioxide 24 mmol/L (22-29); Chloride 107 mmol/L (96-108); Estimated Glomerular Filt Rate 33; Hematocrit 37.8 % (37.0-47.0); Hemoglobin 11.9 g/dl (12.0-16.0); Imm Gran Abs Auto 0.04 X10*3/uL (0.00-0.03); Imm Gran Pct Auto 0.5 % (0.0-0.4); Lymphocytes Absolute Auto 1.6 X10*3/uL (1.2-4.9); MANUAL DIFF FLAG SCAN; Mean Corpuscular HGB Conc 31.5 g/dl (31.0-35.0); Mean Corpuscular Hemoglobin 28.4 pg (27.0-33.0); Mean Corpuscular Volume 90.2 fL (80.0-98.0); NRBC Abs Auto 0.000 X10*3/uL (0.0-0.012); NRBC Pct Auto 0.0 /100WBC (0.0-0.2); PLT CLUMP 1; Potassium 4.4 mmol/L (3.3-5.1); Red Blood Count 4.19 X10*6/uL (4.20-5.50); SCAN SMEAR FLAG 1; Sodium 142 mmol/L (135-145); Total Protein 6.4 g/dL (6.5-8.0)
[2025-04-25 07:54] LABS: White Blood Count 7.8 X10*3/uL (4.8-10.8)
[2025-04-25 08:18] LABS: Platelet Count 171 X10*3/uL (160-400)
== END 2025-04-25 07:15 | disposition home or self-care (01) ==
LOC: HO.MMNH2L 07:14
PROVIDERS: Visit Provider Physician Assistant Medical
DX: Z13.1 Encounter for screening for diabetes mellitus (principal); F03.90 Unspecified dementia, unspecified severity, without behavioral disturbance, psychotic disturbance, mood disturbance, and anxiety; Z91.81 History of falling
CPT/HCPCS: 36415; 80053; 83036; 85025